=== PATIENT | male | born 1945 | race Caucasian/White ===

== ENCOUNTER 2018-02-21 12:47 | Emergency (ER) | payer MEDICARE, SELFPAY ==
[2018-02-21 12:48] VITALS: BP 162/112; PULSE 111; RESP 20; TEMP 36.5; O2SAT 95; BMI 36.3
--- NOTE | 2018-02-21 13:02 | RAD_ITS ---
STUDY: X-RAY CHEST REASON FOR EXAM: Male, 72 years old. Chest pain. TECHNIQUE: Single portable frontal chest. COMPARISON: None. FINDINGS: There is a large region of alveolar opacification within the left lung base completely obscuring the left hemidiaphragm and blunting the left lateral costophrenic angle. There is no pneumothorax. The patient is status post CABG with widening of the superior mediastinum. There is early vascular congestion. There is mild cardiac enlargement. There is atherosclerotic calcification of the aortic arch with tortuosity. There is no acute osseous abnormality. There is no demonstrated abnormality of the visualized soft tissue structures of the upper abdomen. RAD/Chest 1 View (Portable) IMPRESSION: Left lower lobe consolidation potentially representing pneumonia and/or atelectasis. There is probably also a small left basilar pleural effusion. Recommend radiographic follow-up until complete clearing to exclude underlying/obscured pathology. Mild cardiac enlargement. Status post CABG. No pneumothorax. Widening of the superior mediastinum which may simply represent an additional manifestation of prior CABG. Electronically Signed: Brent Concepcion MD at 13:31 EDT , Service support ,
--- NOTE | 2018-02-21 13:02 | EKG12_ITS ---
Test Reason : CP Blood Pressure : / mmHG Vent. Rate : 107 BPM Atrial Rate : 111 BPM P-R Int : 000 ms QRS Dur : 096 ms QT Int : 332 ms P-R-T Axes : 000 -23 074 degrees QTc Int : 443 ms Atrial fibrillation Inferior infarct , age undetermined Abnormal ECG Confirmed by CARMEN LOMELI ([id number]), editor farm journal YOUSUF LEBLANC ([id number]) on 02/26/2018 2:46:49 PM Referred By: CR Confirmed By:CARMEN LOMELI
[2018-02-21 13:12] VITALS: O2SAT 95
[2018-02-21] MEDS: Aspirin 81 MG TAB.CHEW 324 MG PO (13:18)
[2018-02-21] MEDS: Metoprolol Tartrate 5 MG/5 ML Vial IV (13:18)
[2018-02-21 13:27] LABS: Absolute Neutrophil Count 10.4 X10^3/uL (2.0-7.7); Basophil# 0.03 X10^3/uL; Basophil% 0.2 % (0-1); Eosinophil# 0.07 X10^3/uL; Eosinophils% 0.5 % (0-5); Hematocrit 41.1 % (40-54); Hemoglobin 12.6 g/dl (13.0-16.5); Lymphocyte % 7.6 % (19-41); Mean Corp Hgb Conc 30.7 g/gl (32-36); Mean Corpuscular Hgb 27.7 pg (27.0-32.0); Mean Corpuscular Volume 90.3 fL (80-94); Mean Platelet Vol. 9.3 fl (6.2-12.0); Monocyte# 1.62 X10^3/uL; Monocyte% 12.3 % (0-10); Neutrophil # 10.42 X10^3/uL (2.7-7.7); Platelet Count 430 K/mm3 (150-450); RBC Distribution Width CV 16.6 % (11.6-14.6); RBC Distribution Width SD 54.9 fl (35.1-43.9); Red Blood Count 4.55 M/mm3 (4.6-6.2); White Blood Count 13.2 K/mm3 (4.4-11.0)
[2018-02-21 13:28] LABS: Differential Indicated SCAN CRITERIA MET; POSITIVE COUNT NO; POSITIVE DIFFERENTIAL YES; POSITIVE MORPHOLOGY NO
[2018-02-21 13:33] LABS: International Normalized Ratio 2.8
[2018-02-21 13:44] LABS: Anion Gap 9 (5-15); BUN 18 mg/dL (7-18); BUN/Creat Ratio 12.7 RATIO (10-20); Calcium,Total 9.4 mg/dL (8.5-10.1); Chloride 100 mmol/L (98-107); Creatinine, Serum 1.42 mg/dL (0.70-1.30); EST Glomerular Filtration Rate 52 mL/min (>60); Est Glom Filt Rate - Afr Amer 63 mL/min (>60); Estimated Creatinine Clearance 51.56 ml/min; Glucose 176 mg/dL (74-106); Potassium 4.1 mmol/L (3.5-5.1); Sodium Level 134 mmol/L (136-145)
[2018-02-21 13:51] VITALS: BP 121/88; PULSE 95; RESP 23; O2SAT 94
--- NOTE | 2018-02-21 13:56 | ED.DCSUM_ITS ---
- ER Visit Summary Date of Service: 02/21/18 Chief Complaint: Chest pain History of Present Illness: The patient is a [address] Braga, but gets his cardiac care through the [facility]. He had a one-vessel CABG November 062017 with aortic valve replacement at the [facility]. He reports he has had intermittent chest pain for the past 2 weeks. This lasts minutes at a time. It is not related to exertion. He reports she has had constant pain for the past 6 hours now. States his pain is 7 out of 10 at worst and 410 currently. Is worsened by nothing including exertion, movement, or breathing. He denies any associated nausea, vomiting, diaphoresis, or shortness of breath. Physical Examination: Vitals: Stable. Afebrile. General: Well-nourished and well-developed. Head: Normocephalic atraumatic. Neck: Supple, no lymphadenopathy. No JVD. Nontender. Cardiovascular: Irregular rhythm with a 2 out of 6 systolic murmur. Respiratory: No respiratory distress. Clear to auscultation bilaterally. Sternotomy scar is healed well. There is no erythema or warmth to suggest infection. There is no click. Chest is nontender. Abdominal: Soft, nontender, nondistended, normal bowel sounds. No guarding, rebound, or peritoneal signs. Back: Nontender. Extremities: Nontender, no edema. Skin: Normal color, no rash. Neurologic: Alert and oriented ?3. Cranial nerves II through XII are intact. Normal strength and sensation. Psych: Normal affect. Test Results: His A. fib at 107. Troponin is negative. INR is 2.8. Chem-7 is more for sodium 134, creatinine 1.42, glucose 176. CBC is marked for white count 13.2 with a hemoglobin of 12.6. 79 segmented neutrophils and 8 lymphocytes. Chest x-ray is read by the radiologist of the left lower lobe consolidation pneumonia and or atelectasis. Small left basilar pleural effusion. Mild cardiomegaly. Emergency Department Course and Treatment: Had a prolonged discussion with patient about the x-ray. He reports that he has a little bit of cough. I do not think that this is pneumonia. He agrees that he does not feel as though he has pneumonia and does not want to be placed on antibiotic. I also discussed them with 6 hours of constant pain that I do not think that this is cardiac in etiology. I also do not think it is a PE as has he has a therapeutic INR. Treatment Plan: Patient would like to go home. I feel it is reasonable course of action. He will be discharged instructions to follow-up Dr. Braga in 1-2 days for another exam. 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 Return to the emergency department for any worsening symptoms. Disposition: To home in improved and stable condition. Impression: 1. Atypical chest pain. 2. Coumadin coagulopathy. 3. Status post 1 vessel CABG 11/06/2017. This note was generated with [employer] dictation software. It may contain incorrect words, spelling, and punctuation that were not noted in review of the chart prior to signing ED Disposition - Plan for ED Patient: Disposition: Home or Assisted Living Chief Complaint: Chest Pain Instructions: ED Chest Pain Atypical Unkn Cause Referrals: Billy Braga DO [Primary Care Provider] - 1-2 Days if not improving
[2018-02-21 14:03] VITALS: BP 121/88; PULSE 87; RESP 17; O2SAT 94
== END 2018-02-21 14:16 | disposition home or self-care (01) ==
PROVIDERS: Emergency Provider Emergency Medicine; Family Provider Family Medicine; PCP Family Medicine
DX: R07.89 Other chest pain (principal); R79.1 Abnormal coagulation profile; J90 Pleural effusion, not elsewhere classified; I25.10 Atherosclerotic heart disease of native coronary artery without angina pectoris; I48.91 Unspecified atrial fibrillation; E11.9 Type 2 diabetes mellitus without complications; I10 Essential (primary) hypertension; Z95.2 Presence of prosthetic heart valve; Z95.1 Presence of aortocoronary bypass graft
CPT/HCPCS: 71045; 80048; 84484; 85025; 85610; 93005; 96374; 99284; A4216

== ENCOUNTER → 2018-03-26 10:26 | Outpatient (CLI) | payer OTHER, MEDICARE, SELFPAY ==
--- NOTE | 2018-03-26 10:30 | PCM.CR.HP2 ---
CR - History & Physical - General Arrival date:: 03/26/18 Arrival time:: 10:31 Date of Referral:: 03/04/18 Date of CR Evaluation:: 03/26/18 Referring Physician: [facility] Primary Diagnosis: CABG single vessel, AVR 11/06/2017 - History of Present Cardiac Event Onset Date: Enter Onset Date of cardiac illnesses in Comment field below Coronary Artery Bypass Graft:: Yes - single vessel 11/06/2017 Heart valve replacement or repair:: Yes - 11/06/2017 Type of Symptoms:: found heart murmer and went to [facility] and sent to pot reliner at [facility] and then all the excitement started. Ended up with singel vessel bypass and aortic valve replacement at [facility]. Were there any complications?: Atrial Fibrillation; just had cardioversion done last week. - Medications Home Medications: Ambulatory Orders Medication Instructions Recorded Aspirin [Aspir-Low] 81 mg PO DAILY 02/21/18 Docusate Sodium [Colace] 100 mg PO BID PRN 02/21/18 Levothyroxine Sodium [Synthroid] 25 mcg PO DAILY 02/21/18 Metformin HCl [Glucophage] 500 mg PO BIDCM 02/21/18 Metoprolol Tartrate [Lopressor 25 mg PO BID 02/21/18 (Beta Wojciech)] Simvastatin [Zocor] 20 mg PO QHS 02/21/18 Warfarin [Coumadin (PBKC)] 2.5 mg PO SUTUTHSA 02/21/18 Warfarin [Coumadin (PBKC)] 5 mg PO MOWEFR 02/21/18 Cholecalciferol (Vitamin D3) 2,000 unit PO 03/26/18 [Vitamin D3] Levothyroxine [Synthroid] 25 mcg PO DAILY 03/26/18 - Allergies Allergies/Adverse Reactions: Allergies Penicillins Allergy (Verified 02/21/18 12:52) Other - Sleep Disorder Evaluation Hx of Sleep Apnea: No Do you snore loudly (louder than talking or can be heard through closed doors)?: No Do you often feel tired/ fatigued/ sleepy during daytime?: No Has anyone observed you stop breathing during sleep?: No History of Hypertension (for STOP score): Yes STOP Results: Negative Advanced Directives - Advanced Directives Power of Service Representative: Yes - is POA Living Will: Yes Advance Directives Information Provided: No Advance Directives on File: No - Don't think so. 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 - Past Surgical History Surgical History: Past Surgical History (Last Updated 03/26/18 @ 10:43 by Mendoza Shaffer CRT, KAYCE, RE) History of tonsillectomy and adenoidectomy Z98.890 S/P AVR (aortic valve replacement) Z95.2 S/P CABG x 1 Z95.1 Surgical History: coronary bypass surgery - Family History Summary Family History: Family History (Last Updated 03/26/18 @ 10:44 by Mendoza Shaffer CRT, RCP, RE) Mother Cancer Father Heart failure Social History - Smoking History Smoking Status: Never smoker Hx Tobacco Use: No Hx Smoking Exposure: No - Alcohol Use Alcohol Usage: No - Substance Abuse Hx Substance Use: No - Occupation Occupation (List type of work in comments):: Retired - Hobbies, Recreation, Social Activities Hobbies: Other - yard work Recreational Activities: I am able to engage in all my recreational activities Social Environment - Status Marital Status: - Current Living Arrangements Living Environment:: Spouse - Children How many children do you have?: 2 Do any of your children live nearby?: Yes - Safety Do you feel safe in your surroundings?: Yes - Assistance Do you need any assistance at home?: yes Review of Systems - Review of Systems Hints: Right click = Denies (Slash). Left click = Reports ([place]) Review of Present Symptoms: Reports: Shortness of Breath with Exertion, Operative Discomfort - tenderness down the incisional area, Wound Healing, Fatigue - get tired, Appetite - Normal, Sleep - Normal. Denies: Shortness of Breath at Rest, Dizziness/Lightheadedness, Appetite - Special Diet - Pain Is Patient Pain Free?: No Pain Location: chest Pain Level: /10 Risk Factor Assessment - Chief Complaint Chief Complaint: Patient presents to cardiac rehab today under the referral from the [facility] to participate in cardiac rehab following his recent AVR and CABG surgery at [facility]. - Vital Signs Temperature: 98.7 F Respiratory Rate: 16 Pulse Ox: 93 Blood Pressure: 114/58 - Pulse Pulse Rate: 63 Pulse Rhythm: Regular - Hypertension Blood Pressure Sitting - Left Arm: 114/58 - Diabetes Diabetic History: Type II, Medication Dependent - Obesity Height: 5 ft 11 in Weight:: 260 lb Weight in Pounds: 260.0 lbs Weight Source: Estimated by Patient Body Mass Index (BMI): 36.2 Nutritional Referral for Obesity: Yes - Physical Inactivity Physical Inactivity: Reg Exercise 30 min/day - Risk Stratification Risk Guidelines: Lowest Risk: Risk Factor for Smoking, Risk Factor for Dyslipidemia, Risk Factor for Diabetes, Risk Factor for Hypertension, Highest Risk: Risk Factor for Obesity - For Smoking Smoking Risk Guidelines: Smoking Low Risk: None or quit greater than 6 months ago. Smoking Moderate Risk: Smoker or quit 6 months or less ago. Smoking High Risk: Smoker - For Dyslipidemia Dyslipidemia Risk Guidelines: Low Risk: Moderate Risk: High Risk: 15-25% fat 25.1-29% fat >/= 30% fat. <7% sat fat 7-9% sat fat >9% sat fat. <150 mg chol 150-299 mg chol >/= 300 mg chol. LDL <100 LDL 100-129 LDL >/= 130. Chol/HDL ratio <5.0 Chol/HDL ratio 5.0-6.0 Chol/HDL ratio >6.0. Triglycerides <100 Triglycerides 100-149 Triglycerides >/= 150 - For Diabetes Mellitus Diabetes Risk Guidelines: Diabetes Low Risk: HgA1c <6.5% and/or FBG <120. Diabetes Moderate Risk: HgA1c 6.6-7.9% and/or FBG 120-180. Diabetes High Risk: HgA1c >/= 8% and/or FBG >180 - For Obesity/Overweight Obesity/Overweight Risk Guidelines: Obesity Low Risk: BMI <25.0. Obesity Moderate Risk: BMI 25-29.9. Obesity High Risk: BMI >/= 30.0 - For Hypertension Hypertension Risk Guidelines: Hypertension Low Risk: Systolic <120 and Diastolic <80. Hypertension Moderate Risk: Systolic 120-139 and Diastolic 80-89. Hypertension High Risk: Systolic >/= 140 and Diastolic >/= 90 - For Sedentary Lifestyle Sedentary Lifestyle Risk Guidelines: Sedentary Lifestyle Low Risk: >/= 1,500 kcal/week. Sedentary Lifestyle Moderate Risk: 700-1,499 kcal/week. Sedentary Lifestyle High Risk: < 700 kcal/week - For Depression Depression Risk Guidelines: Depression Low Risk: Not clinically depressed. Depression Moderate Risk: Mildly depressed. Depression High Risk: Clinically depressed - Family History Family History: Family History (Last Updated 03/26/18 @ 10:44 by Mendoza Shaffer, LARD MIXER, ENTRY LEVEL FINANCIAL ANALYST, BS) Mother Cancer Father Heart failure Motivation - Motivation to Participate On a scale of 1 to 10, how prepared are you to commit to attending program?: 10 What do you see as barriers to successfully being able to complete the program?: none What do you see as the benefits of succesfully completing the program? In other words, what do you hope to get out of participating in the program?: a lot healthier; more energy Are there issues you are dealing with that will interfere with completing the program?: none Do you have a spouse or signficant other, family or friends who will help support you to complete the program?: good family support system.
--- NOTE | 2018-03-26 10:41 | CR.HP_ITS ---
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 Ended up [place] singel vessel bypass [place] [facility] Were there any complications?: Atrial Fibrillation; just had cardioversion done last week. - Medications Home Medications: Ambulatory Orders Medication Instructions Recorded Aspirin [Aspir-Low] 81 mg PO DAILY 02/21/18 Docusate Sodium [Colace] 100 mg PO BID PRN 02/21/18 Levothyroxine Sodium [Synthroid] 25 mcg PO DAILY 02/21/18 Metformin HCl [Glucophage] 500 mg PO BIDCM 02/21/18 Metoprolol Tartrate [Lopressor 25 mg PO BID 02/21/18 (Beta Wojciech)] Simvastatin [Zocor] 20 mg PO QHS 02/21/18 Warfarin [Coumadin (PBKC)] 2.5 mg PO SUTUTHSA 02/21/18 Warfarin [Coumadin (PBKC)] 5 mg PO MOWEFR 02/21/18 Cholecalciferol (Vitamin D3) 2,000 unit PO 03/26/18 [Vitamin D3] Levothyroxine [Synthroid] 25 mcg PO DAILY 03/26/18 - Allergies Allergies/Adverse Reactions: Allergies Penicillins Allergy (Verified 02/21/18 12:52) Other - Sleep Disorder Evaluation Hx of Sleep Apnea: No Do you snore loudly (louder than talking or can be heard through closed doors)? : No Do you often feel tired/ fatigued/ sleepy during daytime?: No Has anyone observed you stop breathing during sleep?: No History of Hypertension (for STOP score): Yes STOP Results: Negative Advanced Directives - Advanced Directives Power of Photo Colorer: Yes - is POA Living Will: Yes Advance Directives Information Provided: No Advance Directives on File: No - Don't think so. 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 - Past Surgical History Surgical History: Past Surgical History (Last Updated 03/26/18 @ 10:43 by Mendoza Shaffer CRT, KAYCE, RE) History of tonsillectomy and adenoidectomy Z98.890 S/P AVR (aortic valve replacement) Z95.2 S/P CABG x 1 Z95.1 Surgical History: coronary bypass surgery - Family History Summary Family History: Family History (Last Updated 03/26/18 @ 10:44 by Mendoza Shaffer CRT, RCP, RE) Mother Cancer Father Heart failure Social History - Smoking History Smoking Status: Never smoker Hx Tobacco Use: No Hx Smoking Exposure: No - Alcohol Use Alcohol Usage: No - Substance Abuse Hx Substance Use: No - Occupation Occupation (List type of work in comments):: Retired - Hobbies, Recreation, Social Activities Hobbies: Other - yard work Recreational Activities: I am able to engage in all my recreational activities Social Environment - Status Marital Status: - Current Living Arrangements Living Environment:: Spouse - Children How many children do you have?: 2 Do any of your children live nearby?: Yes - Safety Do you feel safe in your surroundings?: Yes - Assistance Do you need any assistance at home?: yes Review of Systems - Review of Systems Hints: Right click = Denies (Slash). Left click = Reports ([place]) Review of Present Symptoms: Reports: Shortness of Breath with Exertion, Operative Discomfort - tenderness down the incisional area, Wound Healing, Fatigue - get tired, Appetite - Normal, Sleep - Normal. Denies: Shortness of Breath at Rest, Dizziness/Lightheadedness, Appetite - Special Diet - Pain Is Patient Pain Free?: No Pain Location: chest Pain Level: /10 Risk Factor Assessment - Chief Complaint Chief Complaint: Patient presents to cardiac rehab today under the referral from the [facility] to participate in cardiac rehab following his recent AVR and CABG surgery at [facility]. - Vital Signs Temperature: 98.7 F Respiratory Rate: 16 Pulse Ox: 93 Blood Pressure: 114/58 - Pulse Pulse Rate: 63 Pulse Rhythm: Regular - Hypertension Blood Pressure Sitting - Left Arm: 114/58 - Diabetes Diabetic History: Type II, Medication Dependent - Obesity Height: 5 ft 11 in Weight:: 260 lb Weight in Pounds: 260.0 lbs Weight Source: Estimated by Patient Body Mass Index (BMI): 36.2 Nutritional Referral for Obesity: Yes - Physical Inactivity Physical Inactivity: Reg Exercise 30 min/day - Risk Stratification Risk Guidelines: Lowest Risk: Risk Factor for Smoking, Risk Factor for Dyslipidemia, Risk Factor for Diabetes, Risk Factor for Hypertension, Highest Risk: Risk Factor for Obesity - For Smoking Smoking Risk Guidelines: Smoking Low Risk: None or quit greater than 6 months ago. Smoking Moderate Risk: Smoker or quit 6 months or less ago. Smoking High Risk: Smoker - For Dyslipidemia Dyslipidemia Risk Guidelines: Low Risk: Moderate Risk: High Risk: 15-25% fat 25.1-29% fat >/= 30% fat. <7% sat fat 7-9% sat fat >9% sat fat. <150 mg chol 150-299 mg chol >/= 300 mg chol. LDL <100 LDL 100-129 LDL >/= 130. Chol/HDL ratio <5.0 Chol/HDL ratio 5.0-6.0 Chol/HDL ratio >6.0. Triglycerides <100 Triglycerides 100-149 Triglycerides >/= 150 - For Diabetes Mellitus Diabetes Risk Guidelines: Diabetes Low Risk: HgA1c <6.5% and/or FBG <120. Diabetes Moderate Risk: HgA1c 6.6-7.9% and/or FBG 120-180. Diabetes High Risk: HgA1c >/= 8% and/or FBG >180 - For Obesity/Overweight Obesity/Overweight Risk Guidelines: Obesity Low Risk: BMI <25.0. Obesity Moderate Risk: BMI 25-29.9. Obesity High Risk: BMI >/= 30.0 - For Hypertension Hypertension Risk Guidelines: Hypertension Low Risk: Systolic <120 and Diastolic <80. Hypertension Moderate Risk: Systolic 120-139 and Diastolic 80-89. Hypertension High Risk: Systolic >/= 140 and Diastolic >/= 90 - For Sedentary Lifestyle Sedentary Lifestyle Risk Guidelines: Sedentary Lifestyle Low Risk: >/= 1 ,500 kcal/week. Sedentary Lifestyle Moderate Risk: 700-1,499 kcal/week. Sedentary Lifestyle High Risk: < 700 kcal/week - For Depression Depression Risk Guidelines: Depression Low Risk: Not clinically depressed. Depression Moderate Risk: Mildly depressed. Depression High Risk: Clinically depressed - Family History Family History: Family History (Last Updated 03/26/18 @ 10:44 by Mendoza Shaffer, HUMAN RESOURCES TALENT MANAGER, LINER ROLL CHANGER, BS) Mother Cancer Father Heart failure Motivation - Motivation to Participate On a scale of 1 to 10, how prepared are you to commit to attending program?: 10 What do you see as barriers to successfully being able to complete the program? : none What do you see as the benefits of succesfully completing the program? In other words, what do you hope to get out of participating in the program?: a lot healthier; more energy Are there issues you are dealing with that will interfere with completing the program?: none Do you have a spouse or signficant other, family or friends who will help support you to complete the program?: good family support system.
--- NOTE | 2018-03-26 10:50 | CR.ITP_ITS ---
General Information - General Information Admitting Diagnosis: CABG and AVR October 2017. - Education/Goals Barriers to Learning: Hearing Impairment, Vision Impairment Individual Counseling: Initial Assessment: Abnormal Cholesterol Levels, High Blood Pressure, Overweight/Obesity, Diabetes, Metabolic Syndrome (as evidenced by 3 of 5 A-E below), B. Waist Circumference >35/Females >40/Males, C. High Triglycerides >150, Hypertension, Sedentary Lifestyle, Family History of Heart Disease (under 65 years) Cardiac Rehabilitation Goals: 1. Maintain the individual as the primary focus of care. 2. To improve the patient's quality of life. 3. Identification of cardiac risk factors and provide cardiac risk factor management. 4. Enhance the psychosocial status of the patient. 5. Reconditioning enough to allow the patient to resume customary activities. 6. Control symptoms of cardiac disease Scale for measuring improvement of personal goals: Enter appropriate number in Comments. 2 = Unchanged. 3 = Slightly Better. 4 = Moderate Improvement. 5 = Met my Goal Personal Goals: Initial Assessment: Improve energy level, Improve knowledge of cardiac disease, Improve muscle strength and endurance, Improve diet and eating habits (eat healthier), Control risk factors (learn risk factor modification) Exercise - Initial Assessment - Visit Date of Eval: 03/26/18 Session #:: 0 - Established initial ITP start on - Stages of Change Stages of Change:: Action - Exercise Prescription Mode:: Treadmill, Airdyne, NuStep Angina with exercise?: No Target Heart Rate:: 112-120 - Hypertension Do any of the following apply?: Yes, Medication Resting Blood Pressure:: 118/64 - Intervention Home Exercise/Activity Goal:: Sitting Time <3 hrs/day - Education Goals:: Warm-up, RPE HAYDEN Scale, S/S, Safe Exercise, Self-Monitoring - Exercise Program Goals Exercise Program Goals: Aerobic Activity >30 min Nutrition - Initial Assessment - Program Goals Nutrition Program Goals: LDL <70. Total Cholesterol <200. HDL >45. Triglycerides <150. HgbA1C <7%. BMI <25 - Visit Date of Assessment:: 03/26/18 - Stages of Change Stages of Change:: Action - Diabetes Diabetes:: Yes Non-Insulin Dependent?: Yes - Metformin 500mg BID - Weight Management Height: 5 ft 11 in Weight:: 260 lb Body Fat %:: 36.8 - Intervention Referral to dietitian:: No - Patient declined participation Referral to Diabetic Clinic:: No - Patient declined participation Will attend diet classes:: Yes - Education Gave educational materials for:: Signs & symptoms of hypoglycemia, Signs & symptoms of hyperglycemia, Relate diabetes to coronary artery disease, Healthy eating Tobacco - Initial Assessment - Program Goals Tobacco Program Goals: Complete smoking cessation. Attend education classes. Improve Knowledge Test score - Stage of Change Stages of Change:: Action - Learning Barriers Learning Barriers: Hearing, Vision, Ready to Learn - Family Support Do you have family support?: Yes - Tobacco Use Tobacco Use: Non-smoker Do you use smokeless tobacco?: No - Intervention Smoking Cessation Referral:: No Individual Education/Counseling:: No Education Schedule Given:: Yes - Education Gave educational material for:: Coronary artery disease, Risk factors, Sexuality , Medical compliance, Cardiac A&P, Angina signs & symptoms Psychosocial - Initial Assess - Target Goals Target Goals: Assess presence or absence of depression. Using a valid screening tool, maximizes coping skills. Positive support system - Stages of Change Stages of Change:: Action - Psychosocial Test Tool Used:: HANDS Depression Questionnaire - Intervention PS - Interventions: Yes Attend Stress Management Classes, Yes Uses Stress Management Skills, No Referral to Mental Health, No Referral to [facility] Case Management, No Referral to Physician - Education Gave educational materials for:: Coping techniques, Signs & symptoms of depression, Stress management, Relaxation techniques - Patient/Program Goal Preventative Medication(s):: Aspirin, Clopidogrel, Beta lawrence, Statin/lipid - Assistive Devices Assistive Devices:: None Fall Risk Assessed:: Yes Patient Health Questionnaire Initial Assessment 1. Little interest or pleasure in doing things: Not at all 2. Feeling down, depressed, or hopeless: Not at all 3. Trouble falling or staying asleep, or sleeping too much: Not at all 4. Feeling tired or having little energy: More than half the days 5. Poor appetite or overeating: Not at all 6. Feeling bad about yourself -- or that you are a failure or have let yourself or your family down: Not at all 7. Trouble concentrating on things, such as reading the newspaper or watching television: Not at all 8. Moving or speaking so slowly that other people could have noticed. Or the opposite - being so fidgety or restless that you have been moving around a lot more than usual: Not at all 9. Thoughts that you would be better off , or of hurting yourself in some way: Not at all How difficult have these problems made it for you to do your work, take care of things at home, or get along with other people?: Not difficult at all Total Score: 2 GAYATRI-Q SV Test - Statements CAD is a disease of the arteries in the heart: False Examples of risk factors for heart disease: True Angina is chest pain or discomfort: True The benefits of resistance training include: I Don't Know Eating more meat and dairy products: I Don't Know Anti-platelet medications such as aspirin are important: True The only effective way to manage stress: False An exercise warm-up slowly increases heart rate: False Prepared, processed foods usually have high sodium: True Depression is common after a heart attack: False The statin medications lower cholesterol: I Don't Know To control blood pressure, lower the amount of sodium: True If someone gets chest discomfort during walking: False Transfats are partially hydrogenated vegetable oils: True Sleep apnea that is not treated increases the risk: I Don't Know To control cholesterol, one should become a vegetarian: False Someone knows if he/she is exercising at the right level: False Diabetes cannot be prevented with exercise & health eating: True Stress is a large risk for heart attack: True A diet that can help lower blood pressure is rich in: I Don't Know - Total Score Total Correct Responses: 11 Self-Efficacy Initial Assessment We would like to know how confident you are in doing certain activities. Please select your confidence level for:: Select your confidence level for the following using the scale 1-10 where 1 is not at all confident and 10 is totally confident. Your score is the average of all 6 responses. Fatigue: How confident are you that you can keep the fatigue caused by your disease from interfering with the things you want to do? Select Number: 9 Physical Discomfort or Pain: How confident are you that you can keep the physical discomfort or pain of your disease from interfering with the things you want to do? Select Number: 9 Emotional Distress: How confident are you that you can keep the emotional distress caused by your disease from interfering with the things you want to do? Select Number: 10 Other Symptoms or Health Problems: How confident are you that you can keep other symptoms or health problems from interfering with the things you want to do? Select Number: 10 Different Tasks and Activities: How confident are you that you can do the different tasks and activities needed to manage your health condition so as to reduce your need to see a doctor? Select Number: 10 Medication: How confident are you that you can do things other than just taking medication to reduce how much your illness affects your everyday life? Select Number: 10 Total Score:: 9 Nutrition Survey - Nutrition Survey Instructions Scoring Instructions: Scoring is as follows: Yes = 1 points. No = 0 point. Patient score that is >/=12 is considered to be at potential nutritional risk and could benefit from a referral to a registered dietitian. - Nutrition Survey Initial Have you lost >10 lbs over the past 2 months without trying?: No Are you following a special diet at home for diabetes, low fat, or low salt?: No Are you interested in meeting with a dietitian for help understanding your diet? : No Do you eat less than 3 meals a day?: Yes Do you eat fatty meats (jc, sausage, ribs, etc), fried foods, desserts, large amounts of salad dressings, margarine, butter, or cheese most days?: No Do you have food allergies? [Enter types in comment field]: No Do you eat in restaurants more than 3 times a week?: No Do you season food with salt, seasoning salt, or garlic salt?: Yes Do you used canned, boxed, frozen meals, or soups, seasoning packets?: No Total Score:: 2
[2018-03-26 10:54] VITALS: BP 114/58; PULSE 63; RESP 16; TEMP 37.1; O2SAT 93; BMI 36.2
[2018-03-26 11:41] VITALS: BP 118/64
== END ==
PROVIDERS: Family Provider Family Medicine; PCP Family Medicine
DX: I25.10 Atherosclerotic heart disease of native coronary artery without angina pectoris (principal); I35.0 Nonrheumatic aortic (valve) stenosis; I10 Essential (primary) hypertension; Z95.1 Presence of aortocoronary bypass graft; Z95.2 Presence of prosthetic heart valve

== ENCOUNTER 2018-04-26 09:15 | Outpatient (RCR) | payer OTHER, MEDICARE, SELFPAY ==
[2018-04-19 14:38] VITALS: BP 130/70; BP 148/82
--- NOTE | 2018-04-19 14:39 | CR.ITP_ITS ---
General Information - General Information Admitting Diagnosis: CABG and AVR - Education/Goals Barriers to Learning: Hearing Impairment, Vision Impairment Individual Counselin-Day Assessment: Abnormal Cholesterol Levels, High Blood Pressure, Overweight/Obesity, Diabetes, Metabolic Syndrome (as evidenced by 3 of 5 A-E below), Hypertension, Sedentary Lifestyle, Family History of Heart Disease (under 65 years) Cardiac Rehabilitation Goals: 1. Maintain the individual as the primary focus of care. 2. To improve the patient's quality of life. 3. Identification of cardiac risk factors and provide cardiac risk factor management. 4. Enhance the psychosocial status of the patient. 5. Reconditioning enough to allow the patient to resume customary activities. 6. Control symptoms of cardiac disease Scale for measuring improvement of personal goals: Enter appropriate number in Comments. 2 = Unchanged. 3 = Slightly Better. 4 = Moderate Improvement. 5 = Met my Goal Personal Goals: 30-day Re-assessment: Improve energy level, Improve knowledge of cardiac disease, Improve diet and eating habits (eat healthier), Control risk factors (learn risk factor modification) Exercise - 30-day Assessment - Visit Date of Eval: 04/19/18 Session #:: 6 - 100% compliance - Stages of Change Stages of Change:: Action - Exercise Prescription Mode:: Treadmill, Airdyne, NuStep Frequency (x/week): 3 Duration:: 30 METs - Progression: 0.5-1 MET as tolerated: 3.1 24% increase Target Heart Rate:: 112-120 103 max - Hypertension Resting Blood Pressure:: 130/70 Peak Exercise Blood Pressure:: 148/82 Medication Changes:: No - Education Goals:: Warm-up, RPE HAYDEN Scale, S/S, Safe Exercise, Self-Monitoring - Exercise Program Goals Exercise Program Goals: Aerobic Activity >30 min, B/P <130/80 Nutrition - 30-Day Assessment - Program Goals Nutrition Program Goals: LDL <70. Total Cholesterol <200. HDL >45. Triglycerides <150. HgbA1C <7%. BMI <25 - Visit Date of Eval: 04/19/18 - Stages of Change Stages of Change:: Action - Diabetes Diabetes:: Yes - Weight Management Weight:: 112.491 kg - Intervention Will attend diet classes:: Yes - Education Attended class for:: Signs & symptoms of hypoglycemia, Signs & symptoms of hyperglycemia, Relate diabetes to coronary artery disease, Healthy eating Tobacco - Initial Assessment - Program Goals Tobacco Program Goals: Complete smoking cessation. Attend education classes. Improve Knowledge Test score - Learning Barriers Learning Barriers: Hearing, Vision, Ready to Learn Tobacco - 30-Day Assessment - Program Goals Tobacco Program Goals: Complete smoking cessation. Attend education classes. Improve Knowledge Test score - Stage of Change Stages of Change:: Action - Learning Barriers Learning Barriers: Participates in education - Family Support Do you have family support?: Yes - Tobacco Use Tobacco Use: Non-smoker - Intervention Smoking Cessation Referral:: No Individual Education/Counseling:: No Education Schedule Given:: Yes - Education Attended class for:: Tobacco triggers, Coronary artery disease, Risk factors, Sexuality, Medical compliance, Cardiac A&P, Angina signs & symptoms Psychosocial - Initial Assess - Target Goals Target Goals: Assess presence or absence of depression. Using a valid screening tool, maximizes coping skills. Positive support system - Psychosocial Test Tool Used:: HANDS Depression Questionnaire - Assistive Devices Fall Risk Assessed:: Yes Psychosocial - 30-Day Assess - Target Goals Target Goals: Assess presence or absence of depression. Using a valid screening tool, maximizes coping skills. Positive support system - Stages of Change Stages of Change:: Action - Psychosocial Test Tool Used:: HANDS Depression Questionnaire - Intervention PS - Interventions: Yes Attend Stress Management Classes, Yes Uses Stress Management Skills, No Referral to Mental Health, No Referral to [facility] Case Management, No Referral to Physician - Education Attended classes for:: Coping techniques, Signs & symptoms of depression, Stress management, Relaxation techniques - Assistive Devices Assistive Devices:: None Fall Risk Assessed:: Yes Patient Health Questionnaire 30-Day Re-eval Assessment 1. Little interest or pleasure in doing things: Not at all 2. Feeling down, depressed, or hopeless: Not at all 3. Trouble falling or staying asleep, or sleeping too much: Not at all 4. Feeling tired or having little energy: More than half the days 5. Poor appetite or overeating: Not at all 6. Feeling bad about yourself -- or that you are a failure or have let yourself or your family down: Not at all 7. Trouble concentrating on things, such as reading the newspaper or watching television: Not at all 8. Moving or speaking so slowly that other people could have noticed. Or the opposite - being so fidgety or restless that you have been moving around a lot more than usual: Not at all 9. Thoughts that you would be better off , or of hurting yourself in some way: Not at all How difficult have these problems made it for you to do your work, take care of things at home, or get along with other people?: Not difficult at all Total Score: 2 Self-Efficacy 30-Day Re-eval Assessment We would like to know how confident you are in doing certain activities. Please select your confidence level for:: Select your confidence level for the following using the scale 1-10 where 1 is not at all confident and 10 is totally confident. Your score is the average of all 6 responses. Fatigue: How confident are you that you can keep the fatigue caused by your disease from interfering with the things you want to do? Select Number: 9 Physical Discomfort or Pain: How confident are you that you can keep the physical discomfort or pain of your disease from interfering with the things you want to do? Select Number: 9 Emotional Distress: How confident are you that you can keep the emotional distress caused by your disease from interfering with the things you want to do? Select Number: 10 Other Symptoms or Health Problems: How confident are you that you can keep other symptoms or health problems from interfering with the things you want to do? Select Number: 10 Different Tasks and Activities: How confident are you that you can do the different tasks and activities needed to manage your health condition so as to reduce your need to see a doctor? Select Number: 10 Medication: How confident are you that you can do things other than just taking medication to reduce how much your illness affects your everyday life? Select Number: 10 Total Score:: 9
== END 2018-04-27 23:59 ==
LOC: CR 09:15
PROVIDERS: Family Provider Family Medicine; PCP Family Medicine
DX: I35.1 Nonrheumatic aortic (valve) insufficiency (principal)
CPT/HCPCS: 93798

== ENCOUNTER 2018-05-20 09:15 | Outpatient (RCR) | payer OTHER, MEDICARE, SELFPAY ==
[2018-04-28 00:14] VITALS: BP 130/70; BP 148/82
--- NOTE | 2018-05-21 12:57 | PCM.CR.ITP ---
Exercise - Final/Discharge - Visit Date of Eval: 05/21/18 - patient completed CR 05/20/18 Session #:: 18 - Stages of Change Stages of Change:: Action - Exercise Prescription Mode:: Treadmill, Rower, Airdyne, NuStep Frequency (x/week): 3 Duration:: 30 METs: 5 patient reached maximum potential. Target Heart Rate:: 112-120 Max HR 111 - Hypertension Resting Blood Pressure:: 180/90 - requires further evaluation of optimal BP control of 130/80 Peak Exercise Blood Pressure:: 180/90 - Intervention Home Exercise/Activity Goal:: Moderate Exercise 30 min/day x 5 days/wk - Education Goal Progress: Goal Met - Exercise Program Goals Exercise Program Goals: Aerobic Activity >30 min Nutrition - Final Assessment - Program Goals Nutrition Program Goals: LDL <70. Total Cholesterol <200. HDL >45. Triglycerides <150. HgbA1C <7%. BMI <25 - Visit Date of Eval: 05/21/18 - Stages of Change Stages of Change:: Action - Diabetes Diabetes:: No Insulin: No Non-Insulin Dependent?: No - Weight Management Height: 5 ft 11 in Weight:: 246 lb Weight Goal (kg):: 179 lb Body Fat %:: 39.81 - Patient could benefit from structured weight loss program. - Intervention Referral to dietitian:: No Referral to Diabetic Clinic:: No Will attend diet classes:: Yes - Education Education Goal Reached?: Yes Tobacco - Initial Assessment - Program Goals Tobacco Program Goals: Complete smoking cessation. Attend education classes. Improve Knowledge Test score - Learning Barriers Learning Barriers: Hearing, Vision, Ready to Learn Tobacco - Final Assessment - Program Goals Tobacco Program Goals: Complete smoking cessation. Attend education classes. Improve Knowledge Test score - Stage of Change Stages of Change:: Action - Family Support Do you have family support?: Yes - Tobacco Use Tobacco Use: Non-smoker Do you use smokeless tobacco?: No - Intervention Education Schedule Given:: Yes - Education Education Goal Reached?: Yes Psychosocial - Initial Assess - Target Goals Target Goals: Assess presence or absence of depression. Using a valid screening tool, maximizes coping skills. Positive support system - Psychosocial Test Tool Used:: HANDS Depression Questionnaire - Assistive Devices Fall Risk Assessed:: Yes Psychosocial - Final Assessmen - Target Goals Target Goals: Assess presence or absence of depression. Using a valid screening tool, maximizes coping skills. Positive support system - Stages of Change Stages of Change:: Action - Psychosocial Test Tool Used:: HANDS Depression Questionnaire - Intervention PS - Interventions: Yes Attend Stress Management Classes, Yes Uses Stress Management Skills, No Referral to Mental Health, No Referral to [facility] Case Management, No Referral to Physician - Education Education Goal Reached?: Yes - Patient/Program Goal Preventative Medication(s):: Aspirin, Clopidogrel, Beta lawrence, Statin/lipid - Assistive Devices Assistive Devices:: None Fall Risk Assessed:: Yes Patient Health Questionnaire Discharge Assessment 1. Little interest or pleasure in doing things: Not at all 2. Feeling down, depressed, or hopeless: Not at all 3. Trouble falling or staying asleep, or sleeping too much: Not at all 4. Feeling tired or having little energy: Not at all 5. Poor appetite or overeating: Not at all 6. Feeling bad about yourself -- or that you are a failure or have let yourself or your family down: Not at all 7. Trouble concentrating on things, such as reading the newspaper or watching television: Not at all 8. Moving or speaking so slowly that other people could have noticed. Or the opposite - being so fidgety or restless that you have been moving around a lot more than usual: Not at all 9. Thoughts that you would be better off , or of hurting yourself in some way: Not at all Total Score: 0 GAYATRI-Q SV Test - Statements CAD is a disease of the arteries in the heart: False Examples of risk factors for heart disease: True Angina is chest pain or discomfort: True The benefits of resistance training include: True Eating more meat and dairy products: False Anti-platelet medications such as aspirin are important: True The only effective way to manage stress: False An exercise warm-up slowly increases heart rate: True Prepared, processed foods usually have high sodium: True Depression is common after a heart attack: True The statin medications lower cholesterol: True To control blood pressure, lower the amount of sodium: True If someone gets chest discomfort during walking: False Transfats are partially hydrogenated vegetable oils: True Sleep apnea that is not treated increases the risk: False To control cholesterol, one should become a vegetarian: False Someone knows if he/she is exercising at the right level: True Diabetes cannot be prevented with exercise & health eating: False Stress is a large risk for heart attack: True A diet that can help lower blood pressure is rich in: True - Total Score Total Correct Responses: 20 Self-Efficacy Discharge Assessment We would like to know how confident you are in doing certain activities. Please select your confidence level for:: Select your confidence level for the following using the scale 1-10 where 1 is not at all confident and 10 is totally confident. Your score is the average of all 6 responses. Fatigue: How confident are you that you can keep the fatigue caused by your disease from interfering with the things you want to do? Select Number: 10 Physical Discomfort or Pain: How confident are you that you can keep the physical discomfort or pain of your disease from interfering with the things you want to do? Select Number: 10 Emotional Distress: How confident are you that you can keep the emotional distress caused by your disease from interfering with the things you want to do? Select Number: 10 Other Symptoms or Health Problems: How confident are you that you can keep other symptoms or health problems from interfering with the things you want to do? Select Number: 10 Different Tasks and Activities: How confident are you that you can do the different tasks and activities needed to manage your health condition so as to reduce your need to see a doctor? Select Number: 10 Medication: How confident are you that you can do things other than just taking medication to reduce how much your illness affects your everyday life? Select Number: 10 Total Score:: 10 Nutrition Survey - Nutrition Survey Instructions Scoring Instructions: Scoring is as follows: Yes = 1 points. No = 0 point. Patient score that is >/=12 is considered to be at potential nutritional risk and could benefit from a referral to a registered dietitian. - Nutrition Survey Discharge Have you lost >10 lbs over the past 2 months without trying?: No Are you following a special diet at home for diabetes, low fat, or low salt?: Yes - Low fat, low sodium, 1800 calorie cardiac diet Are you interested in meeting with a dietitian for help understanding your diet?: No Do you eat less than 3 meals a day?: No Do you eat fatty meats (jc, sausage, ribs, etc), fried foods, desserts, large amounts of salad dressings, margarine, butter, or cheese most days?: No Do you have food allergies? [Enter types in comment field]: No Do you eat in restaurants more than 3 times a week?: No Do you season food with salt, seasoning salt, or garlic salt?: No Do you used canned, boxed, frozen meals, or soups, seasoning packets?: No Total Score:: 1
[2018-05-21 13:02] VITALS: BP 180/90
== END 2018-05-28 23:59 ==
LOC: CR 09:15
PROVIDERS: Family Provider Family Medicine; PCP Family Medicine
DX: I35.1 Nonrheumatic aortic (valve) insufficiency (principal); Z95.1 Presence of aortocoronary bypass graft; Z95.2 Presence of prosthetic heart valve
CPT/HCPCS: 93798

== ENCOUNTER 2019-04-21 17:41 | Emergency (ER) | payer MEDICARE, SELFPAY ==
[2019-04-21 17:42] VITALS: BP 152/72; PULSE 67; RESP 18; TEMP 36.9; O2SAT 95; BMI 38.4
[2019-04-21] MEDS: Diphth,Pertuss(Acell),Tet Vac 0.5 ML Vial IM (18:32)
--- NOTE | 2019-04-21 18:36 | ED.DCSUM_ITS ---
- ER Visit Summary Date of Service: 04/21/19 Chief Complaint: [place] in hand History of Present Illness: The patient is a 73 M unsure of his last tetanus shot presents to the emergency department for fishhook hand. The patient states that he was reaching into a bag with his fishing gear. His fishhook punctured his left middle finger on the dorsum. He was unable to get it out because of the barbs. He denies other injury. He is otherwise been in his normal state of health. Physical Examination: Exam is relatively unremarkable. Patient does have a 3 barbed hook from a lower with 1 of the barbs implanted on the dorsum of the mid phalanges of the left third finger. Cap refill is normal. Sensation is preserved to light touch Test Results: [] Emergency Department Course and Treatment: Patient's tetanus was updated. His wound was anesthetized. I was able to remove it with gentle traction. The wound was irrigated. Bacitracin dressing was applied. Patient will be discharged home. Treatment Plan: [] Disposition: Discharge Impression: 1. [place] in hand This note was generated with [employer] dictation software. It may contain incorrect words, spelling, and punctuation that were not noted in review of the chart prior to signing ED Disposition - Plan for ED Patient: Instructions: Fish Hook Removal Referrals: Billy Braga DO [Primary Care Provider] -
== END 2019-04-21 18:58 | disposition home or self-care (01) ==
LOC: ED 18:26
PROVIDERS: Emergency Provider Emergency Medicine; Family Provider Family Medicine; PCP Family Medicine
DX: S61.243A Puncture wound with foreign body of left middle finger without damage to nail, initial encounter (principal); W45.8XXA Other foreign body or object entering through skin, initial encounter; Y93.89 Activity, other specified; Y92.9 Unspecified place or not applicable; Y99.9 Unspecified external cause status; Z23 Encounter for immunization; I10 Essential (primary) hypertension; Z79.01 Long term (current) use of anticoagulants; Z79.82 Long term (current) use of aspirin; Z79.899 Other long term (current) drug therapy
CPT/HCPCS: 90471; 90715; 99282

== ENCOUNTER 2019-07-13 15:07 | Emergency (ER) | payer MEDICARE, SELFPAY ==
[2019-07-13 15:09] VITALS: BP 148/75; PULSE 65; RESP 16; TEMP 36.7; O2SAT 93; BMI 39.1
--- NOTE | 2019-07-13 15:42 | RAD_ITS ---
STUDY: X-RAY - LEFT HAND REASON FOR EXAM: Male, 74 years old. Injury, fall. TECHNIQUE: 3 view(s) of the hand. COMPARISON: None. FINDINGS: Normal radiocarpal articulation. Normal distal radioulnar joint. Normal visualized carpal bones. Normal carpal articulations Normal carpometacarpal articulation of the thumb. Normal second through fifth carpometacarpal joints. Normal metacarpi. Normal metacarpophalangeal joint of the thumb. Normal interphalangeal joint of the thumb. Normal proximal and distal phalanges of the thumb. Normal metacarpophalangeal joints of the second through fifth fingers. Normal proximal and distal interphalangeal joints of the second through fifth fingers. Normal phalanges of the second through fifth fingers. The soft tissue structures are unremarkable. RAD/Hand Min 3 Views IMPRESSION: Normal x-ray examination of the hand. Electronically Signed: Dania Pathak MD at 16:44 EDT Tel , Service support ,
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
--- NOTE | 2019-07-13 16:07 | ED.DEP ---
ED Disposition - Plan for ED Patient: Disposition: Home or Assisted Living Instructions: CONTUSION, Hand Referrals: Billy Braga DO [Primary Care Provider] - 1 Week if not improving Additional Instructions: Ice and elevate left hand. Tylenol and Motrin for pain. History of follow-up if not reevaluated.
[2019-07-13 16:20] VITALS: RESP 18
== END 2019-07-13 16:21 | disposition home or self-care (01) ==
PROVIDERS: Emergency Provider Emergency Medicine; Family Provider Family Medicine; PCP Family Medicine
DX: S60.222A Contusion of left hand, initial encounter (principal); V19.9XXA Pedal cyclist (driver) (passenger) injured in unspecified traffic accident, initial encounter; Y93.55 Activity, bike riding; Y92.9 Unspecified place or not applicable; Y99.9 Unspecified external cause status; E11.9 Type 2 diabetes mellitus without complications; I10 Essential (primary) hypertension; Z79.01 Long term (current) use of anticoagulants; Z79.84 Long term (current) use of oral hypoglycemic drugs; Z79.82 Long term (current) use of aspirin; Z79.899 Other long term (current) drug therapy
CPT/HCPCS: 73130; 99282

== ENCOUNTER 2022-12-26 15:22 | Emergency (ER) | payer OTHER, SELFPAY ==
[2022-12-26 15:22] VITALS: BP 150/74; PULSE 60; RESP 15; TEMP 36.7; O2SAT 96; BMI 38.1
[2022-12-26 15:24] VITALS: BP 114/63; PULSE 63; RESP 19; TEMP 36.8; O2SAT 92
--- NOTE | 2022-12-26 15:38 | EKG12_ITS ---
Test Reason : SOB Blood Pressure : / mmHG Vent. Rate : 069 BPM Atrial Rate : 070 BPM P-R Int : 000 ms QRS Dur : 088 ms QT Int : 406 ms P-R-T Axes : 000 -27 067 degrees QTc Int : 435 ms Sinus rhythm Occasional PVC's Low voltage QRS Inferior infarct , age undetermined Poor R wave progression Abnormal ECG Confirmed by ANTWAN RUSSO, SANTOS ([id number]), commercial production editor TEVIN KIRBY ([id number]) on 12/28/2022 9:44:56 AM Referred By: Confirmed By:SANTOS MONCADA MD
--- NOTE | 2022-12-26 15:41 | ED.VIS.DYS ---
HPI History of Present Illness Chief Complaint: Shortness of Breath Narrative Narrative: Patient presents with exertional dyspnea for about a month. He tells me he continues to work, sometimes at work he gets short of breath after walking a certain distance also when he walks his dog he gets short of breath after certain distance. He has no cough or congestion. He has lower extremity edema, he thinks is about the same. He has no orthopnea. He does not notice any pallor, normal stools. He is denying chest pain. [facility] Medical History (Updated 12/26/22 @ 17:[address] Sean Alford MD) Coronary atherosclerosis due to severely calcified coronary lesion Hernia Tonsil and adenoid disease, chronic Home Medications aspirin 81 mg tablet,delayed release (Aspir-Low) 81 mg PO DAILY ANTIPLATELET 02/21/18 [History Last Taken 02/21/18 81 MG] docusate sodium 100 mg capsule (DOK) 100 mg PO BID PRN Constipation 02/21/18 [History Last Taken 02/21/18 100 MG] metformin 500 mg tablet 500 mg PO BIDCM DIABETES 02/21/18 [History Last Taken 02/21/18 500 MG] metoprolol tartrate 25 mg tablet 25 mg PO BID BLOOD PRESSURE 02/21/18 [History Last Taken 02/21/18 25 MG] simvastatin 20 mg tablet 20 mg PO QHS HYPERLIPIDEMIA 02/21/18 [History Last Taken 02/21/18 20 MG] cholecalciferol (vitamin D3) 50 mcg (2,000 unit) capsule (Vitamin D3) 2,000 unit PO DAILY 03/26/18 [History Last Taken Unknown] levothyroxine 25 mcg tablet 25 mcg PO DAILY 03/26/18 [History Last Taken Unknown] diclofenac sodium 1 % topical gel (Voltaren Arthritis Pain) 4 g topical TID #100 grams 03/01/22 [Rx Last Taken Unknown] furosemide 40 mg tablet (Lasix) 40 mg PO DAILY #14 tabs 12/26/22 [Rx Last Taken Unknown] Allergy/AdvReac Type Severity Reaction Status Date / Time Penicillins Allergy Other Verified 12/26/22 15:24 Family History (Updated 03/26/18 @ 10:44 by Mendoza Shaffer, RESISTANCE WELDING MACHINE OPERATOR, [employer] MAKER, BS) Mother Cancer Father Heart failure Surgical History (Updated 12/26/22 @ 17:[address] Sean Alford MD) History of tonsillectomy and adenoidectomy S/P AVR (aortic valve replacement) S/P CABG x 1 Social History Smoking Status: Never smoker ROS ROS ED ROS Narrative Past medical history: Reviewed his recent, includes hypothyroidism, hypertension, hypercholesterolemia and diabetes Medications: Reviewed Social history: Noncontributory Review of systems: All systems negative except as indicated General: No fever Eyes: No visual changes ENT: No upper airway congestion, normal voice Neck: No neck pain Cardiovascular: No chest pain Respiratory: Exertional dyspnea as in HPI Gastrointestinal: No abdominal pain, nausea vomiting or diarrhea Genitourinary: No dysuria Musculoskeletal: Denies myalgias no difficulty with ambulation Skin: No rash Neurological: No memory loss, confusion or any focal weakness Psych: No recent behavioral changes Hematologic: No easy bleeding or easy bruising EXAM Physical Exam Narrative Exam Narrative: Physical exam General: Well nourished, Well developed, No Acute Distress Head: Normocephalic, Atraumatic Eyes: Conjunctiva not pale ENT: Moist mucous membranes Neck: Supple, Nontender, No lymphadenopathy Cardiovascular: Regular rate, Regular rhythm Respiratory: No distress, coarse bilateral breath sounds but he has no wheezing, no rhonchi. Abdomen: Soft, Nontender, Nondistended Back: Nontender, Normal Inspection. Negative for: CVA tenderness Extremities: Nontender, No edema Skin: Normal color, No rash Neurological: Alert, Normal Strength, Normal Sensation Psychological: Normal affect Const Vital Signs: 12/26/22 15:22 12/26/22 15:35 12/26/22 15:24 Temperature 98.1 F 98.2 F Temperature Source Temporal Temporal Pulse Rate 60 63 Respiratory Rate 15 19 H Respiratory Effort Short of Breath Respiratory Depth Normal Respiratory Pattern Normal Blood Pressure 150/74 H 114/63 Blood Pressure Mean 99 80 Pulse Ox 96 92 Oxygen Delivery Method Room Air Room Air 12/26/22 16:24 12/26/22 17:00 Temperature 98.1 F 98.0 F Temperature Source Temporal Temporal Pulse Rate 65 68 Respiratory Rate 18 16 Respiratory Effort Respiratory Depth Respiratory Pattern Blood Pressure 112/65 116/67 Blood Pressure Mean 80 83 Pulse Ox 93 94 Oxygen Delivery Method Room Air Room Air MDM MDM Lab Data Labs: Laboratory Results - last 24 hr 12/26/22 12/26/22 12/26/22 15:33 15:33 15:33 WBC 9.8 RBC 4.36 L Hgb 13.4 Hct 43.6 MCV 100.0 H MCH 30.7 MCHC 30.7 L RDW Std Deviation 52.6 H RDW Coeff of Mukul 14.5 Plt Count 292 MPV 9.9 Immature Gran % (Auto) 0.600 Neut % (Auto) 75.5 H Lymph % (Auto) 12.5 L Bremer % (Auto) 9.2 Eos % (Auto) 1.6 Baso % (Auto) 0.6 Absolute Neuts (auto) 7.4 Absolute Lymphs (auto) 1.22 Nucleated RBC % 0 Sodium 140 Potassium 4.6 Chloride 105 Carbon Dioxide 26.0 Anion Gap 9 BUN 31 H Creatinine 1.84 H Estim Creat Clear Calc 36.95 Est GFR (MDRD) Af Amer 46 L Est GFR (MDRD) Non-Af 38 L BUN/Creatinine Ratio 16.8 Glucose 157 H Calcium 9.7 Total Bilirubin 1.80 H AST 19 ALT 27 Alkaline Phosphatase 119 H Troponin I High Sens 8 B-Natriuretic Peptide 653.8 H Total Protein 7.2 Albumin 3.8 Globulin 3.4 Albumin/Globulin Ratio 1.1 Radiography Diagnostic Testing: Clinical Impression(s) from Imaging Studies Chest X-Ray 12/26/22 16:00 IMPRESSION: CHF. Electronically Signed: Sean Borjas MD at 16:18 EST , EKG Initial EKG: Comments: Sinus rhythm with a rate of 69. Normal OK and QTc intervals. No ischemic changes. Interpreted by emergency doctor Treatment and Re-Evaluation Narrative: A. Problems addressed Patient presents with exertional dyspnea, he is found to have some pulmonary edema, elevated natruretic peptide and lower extremity edema. This is consistent with CHF. I am not worried about a PE, he has no pleuritic component to his diagnosis points towards CHF. He has no ischemic changes on his EKG and not worried about acute coronary syndrome. He does have a history of mitral valve replacement and bypass x1. This was 5 years ago at the [facility] he has not had an echocardiogram since then therefore he likely will need it. B. Amount and/or complexity of the data 1. CBC CMP troponin natruretic peptide read by me 2. Independent interpretation of test Telemetry: Sinus rhythm with a rate in the 60s. No ectopy to monitor for any 3. I discussed the patient with Dr. Cannon who is okay with the patient following up. C. Risk of complications and/or morbidity Differential diagnosis: See above I have thought about admitting the patient, however because the patient's pulse ox is relatively normal, we have a good outpatient plan to follow-up with cardiology and get an outpatient echocardiogram and regarding start the patient on Lasix I believe it is safe to discharge. Discharge Plan Triage Chief Complaint: Shortness of Breath ED Provider: Sean Alford Dx/Rx/DC Orders Clinical Impression: Acute dyspnea, CHF (congestive heart failure), Hx of CABG Instructions: What Is Heart Failure Prescriptions: New furosemide [Lasix] 40 mg tablet 40 mg PO DAILY Qty: 14 0RF No Action diclofenac sodium [Voltaren Arthritis Pain] 1 % gel 4 g topical TID Qty: 100 0RF Rx Instructions: apply to single knee metformin 500 MG tablet 500 mg PO BIDCM aspirin [Aspir-Low] 81 MG tablet,delayed release (DR/EC) 81 mg PO DAILY simvastatin 20 MG tablet 20 mg PO QHS docusate sodium [DOK] 100 MG capsule 100 mg PO BID PRN (Reason: Constipation) metoprolol tartrate 25 MG tablet 25 mg PO BID levothyroxine 25 MCG tablet 25 mcg PO DAILY cholecalciferol (vitamin D3) [Vitamin D3] 2,000 UNIT capsule 2,000 unit PO DAILY Primary Care Provider: Billy Braga Referrals: Billy Braga DO [Primary Care Provider] - Sean Cannon MD [Med Staff - Active Staff] - 3-5 Days Disposition Disposition: Home, Self Care
--- NOTE | 2022-12-26 16:00 | RAD_ITS ---
INDICATION: SOB EXAMINATION/TECHNIQUE: X-RAY - XR Chest 2 Views COMPARISON: 02/21/2018 FINDINGS: LUNGS: No consolidation, edema or effusion. No pneumothorax. MEDIASTINUM AND CARDIOVASCULAR STRUCTURES: Sternal wires and CABG. Aortic valve prosthesis Mild cardiomegaly and pulmonary vascular enlargement. Central airways are unremarkable. RAD/Chest PA and Lateral IMPRESSION: CHF. Electronically Signed: Sean Borjas MD at 16:18 EST ,
[2022-12-26 16:08] LABS: Absolute Lymphocyte Count 1.22 X10^3/uL (0.83-4.51); Absolute Neutrophil Count 7.4 X10^3/uL (2.0-7.7); Basophil# 0.06 X10^3/uL; Basophil% 0.6 % (0-1); Eosinophil# 0.16 X10^3/uL; Eosinophils% 1.6 % (0-5); Hematocrit 43.6 % (40-54); Hemoglobin 13.4 g/dL (13.0-16.5); Lymphocyte # 1.22 X10^3/ul (0.83-4.51); Lymphocyte % 12.5 % (19-41); Mean Corp Hgb Conc 30.7 g/dL (32-36); Mean Corpuscular Hgb 30.7 pg (27.0-32.0); Mean Platelet Vol. 9.9 fl (6.2-12.0); Monocyte% 9.2 % (0-10); NRBC Flagged by Analyzer 0 % (0-5); Neutrophil # 7.35 X10^3/uL (2.7-7.7); Neutrophil % 75.5 % (47-70); Platelet Count 292 K/mm3 (150-450); RBC Distribution Width CV 14.5 % (11.6-14.6); RBC Distribution Width SD 52.6 fl (35.1-43.9); Red Blood Count 4.36 M/mm3 (4.6-6.2); White Blood Count 9.8 K/mm3 (4.4-11.0)
[2022-12-26 16:22] LABS: ALB/GLOB Ratio 1.1 RATIO (0.9-2.4); AST(SGOT) 19 U/L (15-37); Alanine Aminotransfer ALT/SGPT 27 U/L (16-61); Albumin, Serum 3.8 g/dL (3.2-5.0); Alkaline Phosphatase 119 U/L (45-117); Anion Gap 9 (5-15); BUN 31 mg/dL (7-18); BUN/Creat Ratio 16.8 RATIO (10-20); Calcium,Total 9.7 mg/dL (8.5-10.1); Chloride 105 mmol/L (98-107); Creatinine, Serum 1.84 mg/dL (0.70-1.30); EST Glomerular Filtration Rate 38 mL/min (>60); Est Glom Filt Rate - Afr Amer 46 mL/min (>60); Estimated Creatinine Clearance 36.95 ml/min; Globulin 3.4 g/dL (2.2-4.2); Glucose 157 mg/dL (74-106); Potassium 4.6 mmol/L (3.5-5.1); Protein, Total 7.2 g/dL (6.4-8.2); Sodium Level 140 mmol/L (136-145); Troponin-I HS 8 pg/mL (3.0-78.0)
[2022-12-26 16:24] VITALS: BP 112/65; PULSE 65; RESP 18; TEMP 36.7; O2SAT 93
[2022-12-26 16:39] LABS: BNP,B-Type NATRIURETIC PEPTIDE 653.8 pg/mL (0-100)
[2022-12-26 17:00] VITALS: BP 116/67; PULSE 68; RESP 16; TEMP 36.7; O2SAT 94
[2022-12-26] MEDS: Furosemide 40 MG/4 ML Vial IV (17:38)
[2022-12-26 17:42] VITALS: BP 123/88; PULSE 67; RESP 18; TEMP 36.7; O2SAT 92
== END 2022-12-26 17:43 | disposition home or self-care (01) ==
PROVIDERS: Emergency Provider Emergency Medicine; PCP Family Medicine; Visit Provider Emergency Medicine
DX: R06.00 Dyspnea, unspecified (principal); I11.0 Hypertensive heart disease with heart failure; I50.9 Heart failure, unspecified; E11.9 Type 2 diabetes mellitus without complications; I25.10 Atherosclerotic heart disease of native coronary artery without angina pectoris; E78.00 Pure hypercholesterolemia, unspecified; E03.9 Hypothyroidism, unspecified; Z79.82 Long term (current) use of aspirin; Z79.84 Long term (current) use of oral hypoglycemic drugs; Z79.899 Other long term (current) drug therapy
CPT/HCPCS: 71046; 80053; 83880; 84484; 85025; 87811; 93005; 96374; 99283; A4216; J1940

== ENCOUNTER 2025-07-03 06:45 | Emergency (ER) | payer OTHER, SELFPAY ==
[2025-07-03 06:45] VITALS: BP 147/73; PULSE 63; RESP 18; TEMP 36.7; O2SAT 94; BMI 37.7
--- NOTE | 2025-07-03 07:00 | CT_ITS ---
PROCEDURE: BRAIN/HEAD WITHOUT CONTRAST 07/03/2025 REASON FOR EXAM: FALL TECHNIQUE: Procedure Code: CTBR Modality: CT Procedure: BRAIN/HEAD WITHOUT CONTRAST Coronal and Sagittal reconstruction series were provided. One or more dose reduction techniques were used (e.g., Automated exposure control, adjustment of the mA and/or kV according to patient size, use of iterative reconstruction technique. RADIATION DOSE SUMMARY: DLP: 1540 mGycm COMPARISON: None FINDINGS: There is no acute infarct, intracranial hemorrhage, or mass effect. There is no hydrocephalus or significant midline shift. There is mild chronic microvascular ischemic changes and mild parenchymal volume loss. No acute, depressed calvarial fractures. No large scalp hematomas. The paranasal sinuses are clear. CT/Brain/Head without Contrast IMPRESSION: No acute intracranial process. Reading Location: [id number]
--- NOTE | 2025-07-03 07:00 | CT_ITS ---
PROCEDURE: SPINE CERVICAL WITHOUT CONTRAS 07/03/2025 REASON FOR EXAM: FALL TECHNIQUE: Procedure Code: CTSPC Modality: CT Procedure: SPINE CERVICAL WITHOUT CONTRAS Coronal and Sagittal reconstruction series were provided. One or more dose reduction techniques were used (e.g., Automated exposure control, adjustment of the mA and/or kV according to patient size, use of iterative reconstruction technique. 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 Possible fracture of the anterior osteophyte at C4. No other acute compression deformity, fracture, or subluxation. Moderate multilevel degenerative changes with moderate multilevel central canal stenosis and foraminal stenosis due to posterior disc-osteophyte complex, facet hypertrophy, and uncovertebral hypertrophy most prominent at C6-C7. The prevertebral soft tissues are not thickened. Thyroid is unremarkable. Limited sections of the lung apices demonstrate no pneumothorax. 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 Possible fracture of the anterior osteophyte at C4. No other acute compression deformity, fracture, or subluxation. Moderate multilevel degenerative changes of the cervical spine with moderate ce ntral canal stenosis most prominent at C6-C7. Reading Location: [facility]
--- NOTE | 2025-07-03 07:02 | EDS_ITS ---
HPI History of Present Illness Chief Complaint: Fall Narrative Narrative: Patient is a 72-year-old male status post CABG, status post aortic valve replacement, CAD who presented to the emergency department chief complaint of fall. Patient notes that he was letting the dog outside this morning when he tripped over some boards landing on the concrete. He states that he did hit his head but did not pass out. He states that he is on Eliquis as well. Patient states he is unsure when his last tetanus shot was. He is complaining of right hand pain and a cut. [facility] Medical History Tonsil and adenoid disease, chronic Hernia Coronary atherosclerosis due to severely calcified coronary lesion Home Medications ?Medication ?Instructions ?Recorded ?Last Taken ?Type metformin 500 mg tablet 500 mg PO BIDCM DIABETES 02/21/18 History 500 MG metoprolol tartrate 25 mg tablet 25 mg PO BID BLOOD AL ESSURE 02/21/18 02/21/18 History 25 MG cholecalciferol (vitamin D3) 50 2,000 unit PO DAILY Unknown History mcg (2,000 unit) capsule (Vitamin D3) apixaban 5 mg tablet (Eliquis) 5 mg PO BID 07/03/25 Un known History aspirin 81 mg capsule 81 mg PO DAILY 07/03/25 Unkn own History atorvastatin 10 mg tablet (Lipitor) 10 mg PO QHS 07/03 Unknown History furosemide 40 mg tablet (Lasix) 20 mg PO DAILY 5 Unknown History levothyroxine 75 mcg tablet 75 mcg PO DAILY 07/03/25 U nknown History (Synthroid) lisinopril 10 mg tablet 10 mg PO DAILY 07/03/25 Unkn own History tamsulosin 0.4 mg capsule 0.4 mg PO DAILY 07/03/25 Unk nown History Allergy/AdvReac Type Severity Reaction Status Date / Time Penicillins Allergy Other Verified 07/03/25 06:45 Family History Mother Cancer Father Heart failure Surgical History History of tonsillectomy and adenoidectomy S/P AVR (aortic valve replacement) S/P CABG x 1 Social History Smoking Status: Never smoker ROS ROS ED ROS Narrative Constitutional: Denies any headache, lightness, dizziness, fevers, chills Eyes: Denies double vision Cardiovascular: Denies chest pain Respiratory: Denies shortness of breath Abdomen: Denies abdominal pain nausea vomit diarrhea Neurological: Denies any numbness, weakness, tingling Musculoskeletal: Complains of right hand pain as noted above Skin: Complains of laceration of the right hand EXAM Physical Exam Narrative Exam Narrative: General: Patient lying in bed rest comfortably did not appear to be in acute distress Head: Atraumatic, normocephalic Eyes: PERRL bilaterally, EOMI bilateral, no conjunctival injection noted Neck: Soft, supple, trachea midline no tenderness palpation midline cervical spine Cardiovascular: Regular rate Respiratory: Clear to auscultation bilaterally Abdomen: No tenderness to palpation Musculoskeletal: No tenderness palpation in the midline of the thoracolumbar spine, patient has mild tenderness palpation over the right volar aspect of his hand near his fifth phalanx and near his wrist, all other bony prominences palpated joints taken through full range of motion no pain elicited Extremities: +5/5 strength noted in the bilateral upper and lower extremities, radial pulses +2/4 in the bilateral extremities
--- NOTE | 2025-07-03 07:02 | EX.ED.DYSGE1 ---
HPI History of Present Illness Chief Complaint: Fall Narrative Narrative: Patient is a 72-year-old male status post CABG, status post aortic valve replacement, CAD who presented to the emergency department chief complaint of fall. Patient notes that he was letting the dog outside this morning when he tripped over some boards landing on the concrete. He states that he did hit his head but did not pass out. He states that he is on Eliquis as well. Patient states he is unsure when his last tetanus shot was. He is complaining of right hand pain and a cut. [facility] Medical History Tonsil and adenoid disease, chronic Hernia Coronary atherosclerosis due to severely calcified coronary lesion Home Medications ?Medication ?Instructions ?Recorded ?Last Taken ?Type metformin 500 mg tablet 500 mg PO BIDCM DIABETES 02/21/18 02/21/18 History 500 MG metoprolol tartrate 25 mg tablet 25 mg PO BID BLOOD PRESSURE 02/21/18 02/21/18 History 25 MG cholecalciferol (vitamin D3) 50 2,000 unit PO DAILY 03/26/18 Unknown History mcg (2,000 unit) capsule (Vitamin D3) apixaban 5 mg tablet (Eliquis) 5 mg PO BID 07/03/25 Unknown History aspirin 81 mg capsule 81 mg PO DAILY 07/03/25 Unknown History atorvastatin 10 mg tablet (Lipitor) 10 mg PO QHS 07/03/25 Unknown History furosemide 40 mg tablet (Lasix) 20 mg PO DAILY 07/03/25 Unknown History levothyroxine 75 mcg tablet 75 mcg PO DAILY 07/03/25 Unknown History (Synthroid) lisinopril 10 mg tablet 10 mg PO DAILY 07/03/25 Unknown History tamsulosin 0.4 mg capsule 0.4 mg PO DAILY 07/03/25 Unknown History Allergy/AdvReac Type Severity Reaction Status Date / Time Penicillins Allergy Other Verified 07/03/25 06:45 Family History Mother Cancer Father Heart failure Surgical History History of tonsillectomy and adenoidectomy S/P AVR (aortic valve replacement) S/P CABG x 1 Social History Smoking Status: Never smoker ROS ROS ED ROS Narrative Constitutional: Denies any headache, lightness, dizziness, fevers, chills Eyes: Denies double vision Cardiovascular: Denies chest pain Respiratory: Denies shortness of breath Abdomen: Denies abdominal pain nausea vomit diarrhea Neurological: Denies any numbness, weakness, tingling Musculoskeletal: Complains of right hand pain as noted above Skin: Complains of laceration of the right hand EXAM Physical Exam Narrative Exam Narrative: General: Patient lying in bed rest comfortably did not appear to be in acute distress Head: Atraumatic, normocephalic Eyes: PERRL bilaterally, EOMI bilateral, no conjunctival injection noted Neck: Soft, supple, trachea midline no tenderness palpation midline cervical spine Cardiovascular: Regular rate Respiratory: Clear to auscultation bilaterally Abdomen: No tenderness to palpation Musculoskeletal: No tenderness palpation in the midline of the thoracolumbar spine, patient has mild tenderness palpation over the right volar aspect of his hand near his fifth phalanx and near his wrist, all other bony prominences palpated joints taken through full range of motion no pain elicited Extremities: +5/5 strength noted in the bilateral upper and lower extremities, radial pulses +2/4 in the bilateral extremities Neurological: Patient following commands knew that he was at [facility] year is 2024 Skin: Warm, dry, patient has a complex laceration noted to the volar aspect of his right hand at the base of the fifth phalanx Const Vital Signs: 07/03/25 06:45 07/03/25 06:50 Temperature 98.1 F Temperature Source Oral Pulse Rate 63 Respiratory Rate 18 Respiratory Effort Normal Non-Labored Respiratory Depth Normal Respiratory Pattern Normal Blood Pressure 147/73 H Blood Pressure Mean 97 Pulse Ox 94 Oxygen Delivery Method Room Air Room Air MDM MDM MDM Narrative Medical decision making narrative: Patient is a 80-year-old male who presents to the emergency department this morning after mechanical fall after tripping over boards causing him to fall forward with a laceration to his right hand and hitting his head. On the differential diagnose includes but not limited to intracranial hemorrhage, cervical spine fracture, metacarpal fracture, fifth phalanx fracture Patient CT head brain without contrast showed no acute intracranial processes. 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 Patient has no no neck pain noted on exam clinically to correlate with this no acute compression deformity fracture or subluxation moderate multilevel degenerative changes of cervical spine with moderate central canal stenosis most prominent at C6-C7. Patient's forearm x-ray showed no fracture dislocations scattered mild degenerative changes no acute soft tissue abnormalities no radiograph foreign body. This was reviewed by myself and by radiology. Patient's hand x-ray reviewed by myself and by radiology showed no fracture dislocations. Patient's x-ray of his wrist was also reviewed by myself by radiology showed no acute fracture or dislocation. Patient had a laceration repaired here in the emergency department see procedure note for separate details. Patient was advised to keep the area dry and clean and use Tylenol for pain control. Patient was advised to watch out for signs of infection and if this is to occur he is to return to the emergency department or call his primary care physician for antibiotics. He was advised to have his sutures removed in approximately 7 to 10 days. He is vies to return with worsening symptoms or any other concerns. He is agreeable to plan as well as significant other bedside all question concerns answered he is discharged home in stable condition peer Radiography Diagnostic Testing: Clinical Impression(s) from Imaging Studies Brain CT 07/03/25 07:00 IMPRESSION: No acute intracranial process. Reading Location: [facility] Cervical Spine CT 07/03/25 07:00 IMPRESSION: Flowing bridging anterior osteophytes may reflect DISH. Possible fracture of the anterior osteophyte at C4. No other acute compression deformity, fracture, or subluxation. Moderate multilevel degenerative changes of the cervical spine with moderate central canal stenosis most prominent at C6-C7. Reading Location: [facility] Forearm X-Ray 07/03/25 07:11 IMPRESSION: No acute fracture or dislocations. Scattered mild degenerative changes. No acute soft tissue abnormalities. No radiographic foreign body. Reading Location: [facility] Hand X-Ray 07/03/25 07:11 IMPRESSION: No acute fracture or dislocations. Scattered mild degenerative changes. Mild soft tissue edema/contusion. No radiographic foreign body. Reading Location: [facility] Wrist X-Ray 07/03/25 07:11 IMPRESSION: No acute fracture or dislocations. Scattered mild degenerative changes. No acute soft tissue abnormalities. No radiographic foreign body. Reading Location: [facility] Discharge Plan Triage Chief Complaint: Fall ED Provider: Mj Ngo Dx/Rx/DC Orders Clinical Impression: Closed head injury without loss of consciousness, Hand pain, right, Complicated laceration of hand Prescriptions: No Action metformin 500 MG tablet 500 mg PO BIDCM metoprolol tartrate 25 MG tablet 25 mg PO BID cholecalciferol (vitamin D3) [Vitamin D3] 2,000 UNIT capsule 2,000 unit PO DAILY aspirin 81 mg capsule 81 mg PO DAILY levothyroxine [Synthroid] 75 mcg tablet 75 mcg PO DAILY atorvastatin [Lipitor] 10 mg tablet 10 mg PO QHS lisinopril 10 mg tablet 10 mg PO DAILY tamsulosin 0.4 mg capsule 0.4 mg PO DAILY furosemide [Lasix] 40 mg tablet 20 mg PO DAILY Eliquis 5 mg tablet 5 mg PO BID Primary Care Provider: Billy Barga Referrals: Billy Braga DO [Primary Care Provider] - Activity Restrictions/Additional Instructions: Your CT scans did not show any acute broken bones, your x-ray of your hand, wrist and forearm did not show any acute broken bones either. Have your sutures removed in approximately 7 days. Watch out for signs infection such as surrounding redness, purulent drainage if this is to occur return to the emergency department or follow-up with your physician in the outpatient setting. You may shower but do not soak your sutures do not scrub at them. Use Tylenol for pain control you can take something every 6 hours for pain max dose of Tylenol in 24 hours 4000 mg. Your tetanus shot was updated today. Return with worsening symptoms or any other concerns Print Language: Croatian Disposition Disposition: Home, Self Care
--- NOTE | 2025-07-03 07:11 | RAD_ITS ---
PROCEDURE: HAND MIN 3 VIEWS 07/03/2025 REASON FOR EXAM: FALL, HAND LAC BASE OF 5TH TECHNIQUE: Procedure Code: GINNA Modality: DX Procedure: HAND MIN 3 VIEWS Laterality: COMPARISON: None RAD/Hand Min 3 Views IMPRESSION: No acute fracture or dislocations. Scattered mild degenerative changes. Mild soft tissue edema/contusion. No radiographic foreign body. Reading Location: [id number]
--- NOTE | 2025-07-03 07:11 | RAD_ITS ---
PROCEDURE: FOREARM 2 VIEWS 07/03/2025 REASON FOR EXAM: FALL TECHNIQUE: Procedure Code: RADFA Modality: DX Procedure: FOREARM 2 VIEWS COMPARISON: None RAD/Forearm 2 Views IMPRESSION: No acute fracture or dislocations. Scattered mild degenerative changes. No acute soft tissue abnormalities. No radiographic foreign body. Reading Location: [id number]
--- NOTE | 2025-07-03 07:11 | RAD_ITS ---
PROCEDURE: WRIST MIN 3 VIEWS 07/03/2025 REASON FOR EXAM: FALL TECHNIQUE: Procedure Code: RADWR Modality: DX Procedure: WRIST MIN 3 VIEWS COMPARISON: None RAD/Wrist min 3 Views IMPRESSION: No acute fracture or dislocations. Scattered mild degenerative changes. No acute soft tissue abnormalities. No radiographic foreign body. Reading Location: [id number]
[2025-07-03] MEDS: Lidocaine 1% (20 ml mdv) 20 ML Vial 10 ML INFILT (07:21)
--- OUTSIDE RECORDS SUMMARY | 2025-07-03 07:33 | XMS RPT_ITS | CCD ---
Author Organization 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 Name Role Phone Billy Braga Primary Care Unavailable Adam Arana Attending Unavailable Billy Braga Referring Unavailable Billy Braga Primary Care Unavailable Sean Alford Attending Unavailable Billy Braga Primary Care Unavailable BRENDA TREVINO Attending Unavailable Billy Braga Primary Care Unavailable Kennedy Fung Attending Unavailable Allergies Allergy Classification Reported Allergen(s) Allergy Type Date of Onset Reaction(s) Facility (1 source) Penicillins Allergy to substance 12-26-2022 Other [facility] (1 source) Penicillins Drug allergy (disorder) 12-26-2022 [facility] Repository Medications Current Medications Medication Drug Class(es) Dates Sig (Normalized) Sig (Original) aspirin 81 mg delayed release oral tablet (1 source) Platelet Aggregation Inhibitor, Nonsteroidal Anti-inflammatory Drug Start: 02-21-2018 take 1 tablet by mouth once daily Aspirin (Aspir-Low) 81 MG tablet,delayed release (DR/EC) Active 81 MG PO DAILY February 20, 2018 11:00pm cholecalciferol 0.05 mg oral capsule (2 sources) Vitamin D Start: 03-26-2018 take 1 capsule by mouth once daily Cholecalciferol (Vitamin D3) (Vitamin D3) 2,000 UNIT capsule Active 2000 UNIT PO DAILY March 25, 2018 11:00pm Start: 02-21-2018 End: 03-26-2018 take 2000 [IU] by mouth once daily Cholecalciferol (Vitamin D3) Discontinued 2000 UNIT PO DAILY February 20, 2018 11:00pm March 26, 2018 9:36am diclofenac sodium 0.01 mg/mg topical gel (1 source) Nonsteroidal Anti-inflammatory Drug Start: 03-01-2022 Diclofenac Sodium (Voltaren Arthritis Pain) 1 % gel Active 4 GM TOPICAL THREE TIMES A DAY 100 February 28, 2022 11:00pm apply to single knee docusate sodium 100 mg oral capsule (1 source) Start: 02-21-2018 take 1 capsule by mouth twice daily Docusate Sodium (Colace) 100 MG capsule Active 100 MG PO TWICE A DAY February 20, 2018 11:00pm furosemide 40 mg oral tablet (1 source) Loop Diuretic Start: 12-26-2022 take 1 tablet by mouth once daily Furosemide (Lasix) 40 mg tablet Active 40 MG PO DAILY December 26, 2022 12:00am levothyroxine sodium 0.025 mg oral tablet (1 source) l-Thyroxine Start: 03-26-2018 take 25 ug by mouth once daily Levothyroxine Active 25 MCG PO DAILY March 25, 2018 11:00pm metFORMIN hydrochloride 500 mg oral tablet (1 source) Biguanide Start: 02-21-2018 take 500 mg by mouth twice daily at mealtime Metformin Active 500 MG PO TWICE DAILY WITH MEALS February 20, 2018 11:00pm metoprolol tartrate 25 mg oral tablet (1 source) beta-Adrenergic Wojciech Start: 02-21-2018 take 25 mg by mouth twice daily Metoprolol Tartrate Active 25 MG PO TWICE A DAY February 20, 2018 11:00pm simvastatin 20 mg oral tablet (1 source) HMG-CoA Reductase Inhibitor Start: 02-21-2018 take 20 mg by mouth at bedtime Simvastatin Active 20 MG PO AT BEDTIME February 20, 2018 11:00pm Completed/Discontinued Medications Medication Drug Class(es) Dates Sig (Normalized) Sig (Original) warfarin sodium 2.5 mg oral tablet (2 sources) Vitamin K Antagonist Start: 02-21-2018 End: 03-01-2022 take 1 tablet by mouth once Warfarin (Coumadin (Pbkc)) 2.5 MG tablet Discontinued 2.5 MG PO every Sunday, , , Sat February 20, 2018 11:00pm March 01, 2022 10:09am Start: 02-21-2018 End: 03-01-2022 Warfarin (Coumadin (Pbkc)) 5 MG tablet Discontinued 5 MG PO MOWEFR February 20, 2018 11:00pm March 01, 2022 10:10am Problems Active Problems Problem Classification Problem Date Documented Date Episodic/Chronic Congestive heart failure; nonhypertensive (1 source) Congestive heart failure; Translations: [Heart failure, unspecified] 12-26-2022 Chronic Coronary atherosclerosis and other heart disease (1 source) Calcific coronary arteriosclerosis; Translations: [Coronary atherosclerosis due to calcified coronary lesion] 03-26-2018 Chronic Osteoarthritis (1 source) Osteoarthritis of right knee joint; Translations: [Unilateral primary osteoarthritis, right knee] 03-01-2022 Chronic Other lower respiratory disease (1 source) Dyspnea; Translations: [Dyspnea, unspecified] 12-26-2022 Episodic Other lower respiratory disease (1 source) Solitary pulmonary nodule; Translations: [Solitary pulmonary nodule] Onset: 01-30-2023 Episodic Other lower respiratory disease (1 source) Shortness of breath; Translations: [Shortness of breath] Onset: 01-02-2023 Episodic Past or Other Problems Problem Classification Problem Date Documented Da te Episodic/Chronic Other non-traumatic joint disorders (2 sources) Pain in right knee; Translations: [Right knee pain] Onset: 03-01-2022 03-01-2022 Episodic Results Test Name Value Interpretation Reference Range Facility 12 Lead EKGon 12-26-2022 12 Lead EKG [facility] Cardiovascular Services [address] [place] [address] 12 Lead EKG 12/26/22 1525 MR#: [id number] Acct: [id number] Name: KANDI GOMEZ Rep #: [id number] : 1945 77 From: Sean Moncada MD Attending Dr: Status: DEP ER Ordering Dr: Sean Alford MD Date: 12/26/22 Location: ED Sex: M C Admitted: Test Reason : SOB Blood Pressure : / mmHG Vent. Rate : 069 BPM Atrial Rate : 070 BPM P-R Int : 000 ms QRS Dur : 088 ms QT Int : 406 ms P-R-T Axes : 000 -27 067 degrees QTc Int : 435 ms Sinus rhythm Occasional PVC's Low voltage QRS Inferior infarct , age undetermined Poor R wave progression Abnormal ECG Confirmed by ANTWAN RUSSO, SEAN ([id number]), science editor TEVIN KIRBY ([id number]) on 12/28/2022 9:44:56 AM Referred By: Confirmed By:SEAN MONCADA MD 12/28/22 0944 Date Sean Moncada MD CC: Dr. Billy Braga, DO; Dr. Sean Alford MD Signed Normal [facility] Absolute lymphocyte countOrd ered By: Dr. Alford on 12-26-2022 Lymphocytes Auto (Unsp spec) [#/Vol] 1.22 10*3/uL 0.83-4.51 [facility] BNP,B-Type NATRIURETIC PEPTI Peg 12-26-2022 Natriuretic peptide B (Bld) [Mass/Vol] 653.8 pg/mL High 0-100 [facility] Comment on above: Performed By: #### L 503.6620, L100.0100, L501.4020, L500.4050 #### [facility] Laboratory [address] [place], [address] Basophil percentageOrdered B y: Dr. Alford on 12-26-2022 Basophils/100 WBC (Bld) 0.6 % 0-1 [facility] Bilirubin [Mass/Vol] 1.80 mg/dL 0.20-1.00 [facility] Comment on above: For patients on eltr ombopag therapy, use of Dimension [place] TBIL is not recommended. Chloride [Moles/Vol] 105 mmol/L 98-107 [facility] Eosinophils/100 WBC (Bld) 1.6 % 0-5 [facility] Glucose [Mass/Vol] 157 mg/dL 74-106 [facility] Comment on above: Fasting Glucose resu lt greater than or equal to 126 mg/dL suggests DIABETES MELLITUS per A.D.A. criteria. Neutrophils (Bld) [#/Vol] 7.4 10*3/uL 2.0-7.7 [facility] Neutrophils/100 WBC (Bld) 75.5 % 47-70 [facility] Potassium [Moles/Vol] 4.6 mmol/L 3.5-5.1 [facility] Protein [Mass/Vol] 7.2 g/dL 6.4-8.2 [facility] Sodium [Moles/Vol] 140 mmol/L 136-145 [facility] WBC (Bld) [#/Vol] 9.8 10*3/uL 4.4-11.0 [facility] Blood erythrocytes count (nu mber/volume)Ordered By: Dr. Alford on 12-26-2022 RBC (Bld) [#/Vol] 4.36 10*6/uL 4.6-6.2 [facility] Blood hemoglobin measurement (mass/volume)Ordered By: Dr. Alford on 12-26-2022 Hemoglobin (Bld) [Mass/Vol] 13.4 g/dL 13.0-16.5 [facility] Blood lymphocytes/100 leukoc ytesOrdered By: Dr. Alford on 12-26-2022 Lymphocytes/100 WBC (Bld) 12.5 % 19-41 [facility] Blood monocytes/100 leukocyt esOrdered By: Dr. Alford on 12-26-2022 Monocytes/100 WBC (Bld) 9.2 % 0-10 [facility] Blood platelet mean volumeOr dered By: Dr. Alford on 12-26-2022 Platelet mean volume (Bld) [Entitic vol] 9.9 fL 6.2-12.0 [facility] CBC W/Diff, Automatedon 11-30 Absolute Lymph 1.22 X10 3/uL Normal 0.83-4.51 [facility] Comment on above: Performed By: #### L 503.6620, L100.0100, L501.4020, L500.4050 #### [facility] [address] [place], [address] Absolute Neut 7.4 X10 3/uL Normal 2.0-7.7 [facility] Comment on above: Performed By: #### L 503.6620, L100.0100, L501.4020, L500.4050 #### [facility] [address] [place], [address] Basophils/100 WBC (Bld) 0.6 % Normal 0-1 [facility] Comment on above: Performed By: #### L 503.6620, L100.0100, L501.4020, L500.4050 #### [facility] [address] [place], [address] Eosinophils/100 WBC (Bld) 1.6 % Normal 0-5 [facility] Comment on above: Performed By: #### L 503.6620, L100.0100, L501.4020, L500.4050 #### [facility] [address] [place], [address] Erythrocyte distribution width (RBC) [Ratio] 14.5 % Normal 11.6-14.6 [facility] Comment on above: Performed By: #### L 503.6620, L100.0100, L501.4020, L500.4050 #### [facility] [address] [place], [address] Hematocrit (Bld) [Volume fraction] 43.6 % Normal 40-54 [facility] Comment on above: Performed By: #### L 503.6620, L100.0100, L501.4020, L500.4050 #### [facility] [address] [place], [address] Hemoglobin (Bld) [Mass/Vol] 13.4 g/dL Normal 13.0-16.5 [facility] Comment on above: Performed By: #### L 503.6620, L100.0100, L501.4020, L500.4050 #### [facility] [address] [place], [address] IG% 0.600 Normal 0.0-0.9 [facility] Comment on above: Result Comment: IG% - Immature Granulocytes (promyelocytes, myelocytes and metamyelocytes) > 1% indicates that a LEFT SHIFT is Present. Performed By: #### L 503.6620, L100.0100, L501.4020, L500.4050 #### [facility] [address] [place], [address] Lymphocytes/100 WBC (Bld) 12.5 % Low 19-41 [facility] Comment on above: Performed By: #### L 503.6620, L100.0100, L501.4020, L500.4050 #### [facility] [address] [place], [address] MCH (RBC) [Entitic mass] 30.7 pg Normal 27.0-32.0 [facility] Comment on above: Performed By: #### L 503.6620, L100.0100, L501.4020, L500.4050 #### [facility] [address] [place], [address] MCHC (RBC) [Mass/Vol] 30.7 g/dL Low 32-36 [facility] Comment on above: Performed By: #### L 503.6620, L100.0100, L501.4020, L500.4050 #### [facility] [address] [place], [address] MCV (RBC) [Entitic vol] 100.0 fL High 80-94 [facility] Comment on above: Performed By: #### L 503.6620, L100.0100, L501.4020, L500.4050 #### [facility] [address] [place], [address] Monocytes/100 WBC (Bld) 9.2 % Normal 0-10 [facility] Comment on above: Performed By: #### L 503.6620, L100.0100, L501.4020, L500.4050 #### [facility] [address] [place], [address] Neutrophils/100 WBC (Bld) 75.5 % High 47-70 [facility] Comment on above: Performed By: #### L 503.6620, L100.0100, L501.4020, L500.4050 #### [facility] [address] [place], [address] Nucleated RBC (Bld) [#/Vol] 0 10*3/uL Normal 0-5 [facility] Comment on above: Performed By: #### L 503.6620, L100.0100, L501.4020, L500.4050 #### [facility] [address] [place], [address] Platelet mean volume (Bld) [Entitic vol] 9.9 fL Normal 6.2-12.0 [facility] Comment on above: Performed By: #### L 503.6620, L100.0100, L501.4020, L500.4050 #### [facility] [address] [place], [address] Platelets (Bld) [#/Vol] 292 10*3/uL Normal 150-450 [facility] Comment on above: Performed By: #### L 503.6620, L100.0100, L501.4020, L500.4050 #### [facility] [address] [place], [address] RBC (Bld) [#/Vol] 4.36 10*6/uL Low 4.6-6.2 [facility] Comment on above: Performed By: #### L 503.6620, L100.0100, L501.4020, L500.4050 #### [facility] [address] [place], [address] RDW SD 52.6 fl High 35.1-43.9 [facility] Comment on above: Performed By: #### L 503.6620, L100.0100, L501.4020, L500.4050 #### [facility] [address] [place], [address] WBC (Bld) [#/Vol] 9.8 10*3/uL Normal 4.4-11.0 [facility] Comment on above: Performed By: #### L 503.6620, L100.0100, L501.4020, L500.4050 #### [facility] [address] [place], [place], [id number] COVID 19 AG RAPID (RN COLLE T)on 12-26-2022 SARS-CoV-2 (COVID-19) RNA ELSA+probe Ql (Unsp spec) Comments: Order Always:Unless pt has Inhouse Cov19 Criteria+ *Negative results from patients with symptom onset beyond five days should be treated as presumptive and confirmed by a molecular assay if clinically necessary. Negative results should not be used as the sole basis for treatment or for patient management. SARS-CoV-2 Ag Resp Ql IA.rapid *Positive results do not differentiate between SARS-CoV and SARS-CoV-2. If differentiation of the specific SARS virus is desired an additional sample and an additional order is required. SARS-CoV-2 Ag Resp Ql IA.rapid * This test has not been FDA cleared or approved; the test has been authorized by FDA under an Emergency Use Authorization (EAU) for use by laboratories certified under CLIA that meet the requirements to perform moderate, high, or waived complexity tests. SARS-CoV-2 Ag Resp Ql IA.rapid Normal Reference Range: Negative SARS-CoV-2 (COVID 19) Negative RAPID METHOD [employer] COVID19 Ag Card Normal [facility] Comment on above: Performed By: #### M 100.505 #### [facility] [address] [place], [place], [id number] COVID-19 virus antigen assay Ordered By: Dr. Alford on 12-26-2022 SARS-CoV-2 (COVID-19) Ag IA.rapid Ql (Resp) [facility] Chest PA and Lateralon 12-26 Chest PA and Lateral [facility] Imaging Services [address] [place] [address] Chest PA and Lateral MR#: [id number] Acct: [id number] Name: KANDI GOMEZ Rep #: [id number] : 1945 M 77 From: Sean Borjas MD PCP: Dr. Billy Braga, DO Status: REG ER Study: Chest PA and Lateral Date of Exam: 12/26/22 Exam# [id number] Ordering Dr: Sean Alford MD INDICATION: SOB EXAMINATION/TECHNIQUE : X-RAY - XR Chest 2 Views COMPARISON: 02/21/2018 __ FINDINGS: LUNGS: No consolidation, edema or effusion. No pneumothorax. MEDIASTINUM AND CARDIOVASCULAR STRUCTURES: Sternal wires and CABG. Aortic valve prosthesis Mild cardiomegaly and pulmonary vascular enlargement. Central airways are unremarkable. RAD/Chest PA and Lateral IMPRESSION: CHF. Electronically Signed: Sean Borjas MD at 16:18 EST , CC: Dr. Billy Braga, ; Dr. Sean Alford MD Rotating Field Assembler: Signed Normal [facility] Comprehensive Metabolic Prof ilon 12-26-2022 Albumin [Mass/Vol] 3.8 g/dL Normal 3.2-5.0 [facility] Comment on above: Order Comment: 'TROP ' Serial specimen #1, #2 or #3: 1 Performed By: #### L 503.6620, L100.0100, L501.4020, L500.4050 #### [facility] [address] [place], [address] Albumin/Globulin [Mass ratio] 1.1 {ratio} Normal 0.9-2.4 [facility] Comment on above: Order Comment: 'TROP ' Serial specimen #1, #2 or #3: 1 Performed By: #### L 503.6620, L100.0100, L501.4020, L500.4050 #### [facility] [address] [place], [address] ALK P 119 U/L High 45-117 [facility] Comment on above: Order Comment: 'TROP ' Serial specimen #1, #2 or #3: 1 Performed By: #### L 503.6620, L100.0100, L501.4020, L500.4050 #### [facility] [address] [place], [address] ALT [Catalytic activity/Vol] 27 U/L Normal 16-61 [facility] Comment on above: Order Comment: 'TROP ' Serial specimen #1, #2 or #3: 1 Performed By: #### L 503.6620, L100.0100, L501.4020, L500.4050 #### [facility] [address] [place], [address] AST [Catalytic activity/Vol] 19 U/L Normal 15-37 [facility] Comment on above: Order Comment: 'TROP ' Serial specimen #1, #2 or #3: 1 Performed By: #### L 503.6620, L100.0100, L501.4020, L500.4050 #### [facility] [address] [place], [address] Bilirubin [Mass/Vol] 1.80 mg/dL High 0.20-1.00 [facility] Comment on above: Order Comment: 'TROP ' Serial specimen #1, #2 or #3: 1 Result Comment: For patients on eltrombopag therapy, use of Dimension [place] TBIL is not recommended. Performed By: #### L 503.6620, L100.0100, L501.4020, L500.4050 #### [facility] [address] [place], [address] BUN/CRE 16.8 RATIO Normal 10-20 [facility] Comment on above: Order Comment: 'TROP ' Serial specimen #1, #2 or #3: 1 Performed By: #### L 503.6620, L100.0100, L501.4020, L500.4050 #### [facility] [address] [place], [address] CA,Total 9.7 mg/dL Normal 8.5-10.1 [facility] Comment on above: Order Comment: 'TROP ' Serial specimen #1, #2 or #3: 1 Performed By: #### L 503.6620, L100.0100, L501.4020, L500.4050 #### [facility] [address] [place], [address] Chloride [Moles/Vol] 105 mmol/L Normal 98-107 [facility] Comment on above: Order Comment: 'TROP ' Serial specimen #1, #2 or #3: 1 Performed By: #### L 503.6620, L100.0100, L501.4020, L500.4050 #### [facility] [address] [place], [address] CO2 [Moles/Vol] 26.0 mmol/L Normal 21.0-32.0 [facility] Comment on above: Order Comment: 'TROP ' Serial specimen #1, #2 or #3: 1 Performed By: #### L 503.6620, L100.0100, L501.4020, L500.4050 #### [facility] [address] [place], [address] Creatinine [Mass/Vol] 1.84 mg/dL High 0.70-1.30 [facility] Comment on above: Order Comment: 'TROP ' Serial specimen #1, #2 or #3: 1 Result Comment: The validity of the calculated GFR GFRAA in patients over 70 years has not been determined. Clinical correlation is essential. Performed By: #### L 503.6620, L100.0100, L501.4020, L500.4050 #### [facility] [address] [place], [address] ECRCL 36.95 ml/min Normal [facility] Comment on above: Order Comment: 'TROP ' Serial specimen #1, #2 or #3: 1 Performed By: #### L 503.6620, L100.0100, L501.4020, L500.4050 #### [facility] [address] [place], [address] EST GFR - AA 46 mL/min Low >60 [facility] Comment on above: Order Comment: 'TROP ' Serial specimen #1, #2 or #3: 1 Result Comment: Afri can Danish GFR Calc Performed By: #### L 503.6620, L100.0100, L501.4020, L500.4050 #### [facility] [address] [place], [address] GAP 9 Normal 5-15 [facility] Comment on above: Order Comment: 'TROP ' Serial specimen #1, #2 or #3: 1 Performed By: #### L 503.6620, L100.0100, L501.4020, L500.4050 #### [facility] [address] [place], [address] GFR/1.73 sq M.predicted among non-blacks MDRD (S/P/Bld) [Vol rate/Area] 38 mL/min/{1.73_m2} Low >60 [facility] Comment on above: Order Comment: 'TROP ' Serial specimen #1, #2 or #3: 1 Result Comment: Non- GFR Calc Performed By: #### L 503.6620, L100.0100, L501.4020, L500.4050 #### [facility] [address] [place], [address] Globulin (S) [Mass/Vol] 3.4 g/dL Normal 2.2-4.2 [facility] Comment on above: Order Comment: 'TROP ' Serial specimen #1, #2 or #3: 1 Performed By: #### L 503.6620, L100.0100, L501.4020, L500.4050 #### [facility] [address] [place], [address] Glucose [Mass/Vol] 157 mg/dL High 74-106 [facility] Comment on above: Order Comment: 'TROP ' Serial specimen #1, #2 or #3: 1 Result Comment: Fast ing Glucose result greater than or equal to 126 mg/dL suggests DIABETES MELLITUS per A.D.A. criteria. Performed By: #### L 503.6620, L100.0100, L501.4020, L500.4050 #### [facility] [address] [place], [address] Potassium [Moles/Vol] 4.6 mmol/L Normal 3.5-5.1 [facility] Comment on above: Order Comment: 'TROP ' Serial specimen #1, #2 or #3: 1 Performed By: #### L 503.6620, L100.0100, L501.4020, L500.4050 #### [facility] [address] [place], [address] Sodium [Moles/Vol] 140 mmol/L Normal 136-145 [facility] Comment on above: Order Comment: 'TROP ' Serial specimen #1, #2 or #3: 1 Performed By: #### L 503.6620, L100.0100, L501.4020, L500.4050 #### [facility] [address] [place], [address] T PROT 7.2 g/dL Normal 6.4-8.2 [facility] Comment on above: Order Comment: 'TROP ' Serial specimen #1, #2 or #3: 1 Performed By: #### L 503.6620, L100.0100, L501.4020, L500.4050 #### [facility] [address] [place], [address] Urea nitrogen [Mass/Vol] 31 mg/dL High 7-18 [facility] Comment on above: Order Comment: 'TROP ' Serial specimen #1, #2 or #3: 1 Performed By: #### L 503.6620, L100.0100, L501.4020, L500.4050 #### [facility] [address] [place], [address] Determination of erythrocyte mean corpuscular volume (MCV)Ordered By: Dr. Alford on 12-26-2022 MCV (RBC) [Entitic vol] 100.0 fL 80-94 [facility] Emergency Department Summary on 12-26-2022 Emergency Department Summary [facility] Medical Records Department [address] [place] [address] Emergency Department Summary 12/26/22 MR#: [id number] Acct: [id number] Name: KANDI GOMEZ Rep #: [id number] : 1945 77 From: Sean Alford MD PCP: Dr. Billy Braga, DO Status:REG ER Location: ED HPI History of Present Illness Chief Complaint: Shortness of Breath Narrative Narrative: Patient presents with exertional dyspnea for about a month. He tells me he continues to work, sometimes at work he gets short of breath after walking a certain distance also when he walks his dog he gets short of breath after certain distance. He has no cough or congestion. He has lower extremity edema, he thinks is about the same. He has no orthopnea. He does not notice any pallor, normal stools. He is denying chest pain. [facility] Medical History (Updated 12/26/22 @ 17:[address] Sena Alford MD) Coronary atherosclerosis due to severely calcified coronary lesion Hernia Tonsil and adenoid disease, chronic Home Medications aspirin 81 mg tablet,delayed release (Aspir-Low) 81 mg PO DAILY ANTIPLATELET 02/21/18 [History Last Taken 02/21/18 81 MG] docusate sodium 100 mg capsule (DOK) 100 mg PO BID PRN Constipation 02/21/18 [History Last Taken 02/21/18 100 MG] metformin 500 mg tablet 500 mg PO BIDCM DIABETES 02/21/18 [History Last Taken 02/21/18 500 MG] metoprolol tartrate 25 mg tablet 25 mg PO BID BLOOD PRESSURE 02/21/18 [History Last Taken 02/21/18 25 MG] simvastatin 20 mg tablet 20 mg PO QHS HYPERLIPIDEMIA 02/21/18 [History Last Taken 02/21/18 20 MG] cholecalciferol (vitamin D3) 50 mcg (2,000 unit) capsule (Vitamin D3) 2,000 unit PO DAILY 03/26/18 [History Last Taken Unknown] levothyroxine 25 mcg tablet 25 mcg PO DAILY 03/26/18 [History Last Taken Unknown] diclofenac sodium 1 % topical gel (Voltaren Arthritis Pain) 4 g topical TID #100 grams 03/01/22 [Rx Last Taken Unknown] furosemide 40 mg tablet (Lasix) 40 mg PO DAILY #14 tabs 12/26/22 [Rx Last Taken Unknown] Allergy/AdvReac Type Severity Reaction Status Date / Time Penicillins Allergy Other Verified 12/26/22 15:24 Family History (Updated 03/26/18 @ 10:44 by Mendoza Shaffer, RADIATION / CHEMISTRY TECHNICIAN, MEDICAL EDUCATION MANAGER, BS) Mother Cancer Father Heart failure Surgical History (Updated 12/26/22 @ 17:[address] Sean Alford MD) History of tonsillectomy and adenoidectomy S/P AVR (aortic valve replacement) S/P CABG x 1 Social History Smoking Status: Never smoker ROS ROS ED ROS Narrative Past medical history: Reviewed his recent, includes hypothyroidism, hypertension, hypercholesterolemia and diabetes Medications: Reviewed Social history: Noncontributory Review of systems: All systems negative except as indicated General: No fever Eyes: No visual changes ENT: No upper airway congestion, normal voice Neck: No neck pain Cardiovascular: No chest pain Respiratory: Exertional dyspnea as in HPI Gastrointestinal: No abdominal pain, nausea vomiting or diarrhea Genitourinary: No dysuria Musculoskeletal: Denies myalgias no difficulty with ambulation Skin: No rash Neurological: No memory loss, confusion or any focal weakness Psych: No recent behavioral changes Hematologic: No easy bleeding or easy bruising EXAM Physical Exam Narrative Exam Narrative: Physical exam General: Well nourished, Well developed, No Acute Distress Head: Normocephalic, Atraumatic Eyes: Conjunctiva not pale ENT: Moist mucous membranes Neck: Supple, Nontender, No lymphadenopathy Cardiovascular: Regular rate, Regular rhythm Respiratory: No distress, coarse bilateral breath sounds but he has no wheezing, no rhonchi. Abdomen: Soft, Nontender, Nondistended Back: Nontender, Normal Inspection. Negative for: CVA tenderness Extremities: Nontender, No edema Skin: Normal color, No rash Neurological: Alert, Normal Strength, Normal Sensation Psychological: Normal affect Const Vital Signs: 12/26/22 15:22 12/26/22 15:35 12/26/22 15:24 Temperature 98.1 F 98.2 F Temperature Source Temporal Temporal Pulse Rate 60 63 Respiratory Rate 15 19 H Respiratory Effort Short of Breath Respiratory Depth Normal Respiratory Pattern Normal Blood Pressure 150/74 H 114/63 Blood Pressure Mean 99 80 Pulse Ox 96 92 Oxygen Delivery Method Room Air Room Air 12/26/22 16:24 12/26/22 17:00 Temperature 98.1 F 98.0 F Temperature Source Temporal Temporal Pulse Rate 65 68 Respiratory Rate 18 16 Respiratory Effort Respiratory Depth Respiratory Pattern Blood Pressure 112/65 116/67 Blood Pressure Mean 80 83 Pulse Ox 93 94 Oxygen Delivery Method Room Air Room Air MDM MDM Lab Data Labs: Laboratory Results - last 24 hr 12/26/22 12/26/22 12/26/22 15:33 15:33 15:33 WBC 9.8 RBC 4.36 L (more content not included)... Normal [facility] Hematocrit Auto (Bld) [Volum e fraction]Ordered By: Dr. Alford on 12-26-2022 Hematocrit (Bld) [Volume fraction] 43.6 % 40-54 [facility] L501.4020on 12-26-2022 TROPONIN-I HS 8 pg/mL Normal 3.0-78.0 [facility] Comment on above: Order Comment: 'TROP ' Serial specimen #1, #2 or #3: 1 Result Comment: Plea se Note: New Test Units and Gender Specific Reference Ranges. For more information see Policy Stat Procedure [place] High Sensitivity Troponin (TNIH) and attachments. Performed By: #### L 503.6620, L100.0100, L501.4020, L500.4050 #### [facility] Laboratory [address] [facility] ([facility] [place], [address] Laboratory - Chemistry and C hemistry - challengeOrdered By: Dr. Alford on 12-26-2022 ALP [Catalytic activity/Vol] 119 U/L 45-117 [facility] ALT [Catalytic activity/Vol] 27 U/L 16-61 [facility] CO2 [Moles/Vol] 26.0 mmol/L 21.0-32.0 [facility] Globulin (S) [Mass/Vol] 3.4 g/dL 2.2-4.2 [facility] Natriuretic peptide B (Bld) [Mass/Vol] 653.8 pg/mL 0-100 [facility] Urea nitrogen/Creatinine [Mass ratio] 16.8 mg/mg 10-20 [facility] Laboratory - Hematology and Cell countsOrdered By: Dr. Alford on 12-26-2022 Erythrocyte distribution width (RBC) [Entitic vol] 52.6 fL 35.1-43.9 [facility] Erythrocyte distribution width (RBC) [Ratio] 14.5 % 11.6-14.6 [facility] Immature granulocytes/100 WBC (Bld) 0.600 % 0.0-0.9 [facility] Comment on above: IG% - Immature Granu locytes (promyelocytes, myelocytes and metamyelocytes) > 1% indicates that a LEFT SHIFT is Present. MCH (RBC) [Entitic mass] 30.7 pg 27.0-32.0 [facility] Nucleated RBC/100 WBC (Bld) [Ratio] 0 % 0-5 [facility] MCHC Auto (RBC) [Mass/Vol]Or dered By: Dr. Alford on 12-26-2022 MCHC (RBC) [Mass/Vol] 30.7 g/dL 32-36 [facility] No Panel InformationOrdered By: Dr. Alford on 12-26-2022 Estimated Creatinine Clearance Calc 36.95 ml/min [facility] Estimated GFR (MDRD) Amer 46 mL/min >60 [facility] Comment on above: GFR Calc Estimated GFR (MDRD) Non-Af Amer 38 mL/min >60 [facility] Comment on above: Non- GFR Calc Troponin I High Sensitivity 8 pg/mL 3.0-78.0 [facility] Comment on above: Please Note: New Carmen t Units and Gender Specific Reference Ranges. For more information see Policy Stat Procedure [place] High Sensitivity Troponin (TNIH) and attachments. Platelets bldOrdered By: Dr. Alford on 12-26-2022 Platelets (Bld) [#/Vol] 292 10*3/uL 150-450 [facility] Serum or plasma albumin sheldon urement (mass/volume)Ordered By: Dr. Alford on 12-26-2022 Albumin [Mass/Vol] 3.8 g/dL 3.2-5.0 [facility] Serum or plasma albumin/glob ulin mass ratioOrdered By: Dr. Alford on 12-26-2022 Albumin/Globulin [Mass ratio] 1.1 {ratio} 0.9-2.4 [facility] Serum or plasma calcium sheldon urement (mass/volume)Ordered By: Dr. Alford on 12-26-2022 Calcium [Mass/Vol] 9.7 mg/dL 8.5-10.1 [facility] Serum or plasma creatinine m easurement (mass/volume)Ordered By: Dr. Alford on 12-26-2022 Creatinine [Mass/Vol] 1.84 mg/dL 0.70-1.30 [facility] Comment on above: The validity of the calculated GFR & GFRAA in patients over 70 years has not been determined. Clinical correlation is essential. Serum or plasma urea nitroge n measurement (mass/volume)Ordered By: Dr. Alford on 12-26-2022 Urea nitrogen [Mass/Vol] 31 mg/dL 7-18 [facility] Thin prep Papanicolaou smear with manual screeningOrdered By: Dr. Alford on 12-26-2022 Thin prep Papanicolaou smear with manual screening 19 U/L 15-37 [facility] Thin prep Papanicolaou smear with manual screening 9 5-15 [facility] Knee 4 or More Viewson 03-01 Knee 4 or More Views [facility] [address] [place] [address] Knee 4 or More Views MR#: [id number] Acct: [id number] Name: KANDI GOMEZ Rep #: [id number] : 1945 M 76 From: Eleazar Tinoco MD PCP: Dr. Billy Braga, DO Status: DEP AMB Study: Knee 4 or More Views Date of Exam: 03/01/22 Exam# [id number] Ordering Dr: Adam Ribeiro PA STUDY: X-RAY - RIGHT KNEE REASON FOR EXAM: Male, 76 years old. Knee pain. TECHNIQUE: 4 view(s) of the knee. COMPARISON: None. FINDINGS: Osteopenia. Moderate medial compartmental arthrosis with small osteophytes. Mild arthrosis of the lateral compartment with small osteophytes. Lateral tilt and subluxation of the patella with mild arthrosis of the patellofemoral compartment. Vascular calcification. RAD/Knee 4 or More Views IMPRESSION: Osteopenia with tricompartmental arthrosis. No acute abnormality, erosive changes or chondrocalcinosis. Electronically Signed: Eleazar Tinoco MD at 11:38 EDT , CC: TISHA Ribeiro; Dr. Billy Braga DO Rotating Field Assembler: Signed Normal [facility] Orthopedic Visit Reporton Orthopedic Visit Report [facility] [address] [place] [address] OFFICE VISIT Date of Service: 03/01/22 MR#: [id number] Acct: [id number] Name: KANDI GOMEZ Rep #: [id number] : 1945 Provider: TISHA Ribeiro Age/Sex: 76/M Location: [facility].[place] Status: Signed Intake Vital Signs 03/01/22 11:08 Height 5 ft 11 in Weight: 280 lb BMI 39.0 Intake Visit Reasons: RIGHT KNEE Chief Complaint: right knee Accompanied by: Is patient in pain?: Yes Pain scale (1-10): 6 Allergies Penicillins Allergy (Verified 07/13/19 15:09) Other Medications aspirin [Aspir-Low] 81 mg PO DAILY 02/21/18 [History Confirmed 03/01/22] docusate sodium [Colace] 100 mg PO BID PRN 02/21/18 [History Confirmed 03/01/22] metformin 500 mg PO BIDCM 02/21/18 [History Confirmed 03/01/22] metoprolol tartrate 25 mg PO BID 02/21/18 [History Confirmed 03/01/22] simvastatin 20 mg PO QHS 02/21/18 [History Confirmed 03/01/22] cholecalciferol (vitamin D3) [Vitamin D3] 2,000 unit PO DAILY 03/26/18 [History Confirmed 03/01/22] levothyroxine 25 mcg PO DAILY 03/26/18 [History Confirmed 03/01/22] diclofenac sodium 1 % topical gel 4 g TOPICAL TID #100 g 03/01/22 [Rx Confirmed 03/01/22] PFSH Medical History (Updated 03/01/22 @ 14:30 by Adam GILES, PA) Coronary atherosclerosis due to severely calcified coronary lesion Hernia Tonsil and adenoid disease, chronic Surgical History (Updated 03/26/18 @ 10:43 by Mendoza Shaffer CRT, MEDICAL EDUCATION MANAGER, BS) History of tonsillectomy and adenoidectomy S/P AVR (aortic valve replacement) S/P CABG x 1 Family History (Updated 03/26/18 @ 10:44 by Mendoza Shaffer CRT, KAYCE, BS) Mother Cancer Father Heart failure Social History Smoking Status: Never smoker HPI RIGHT KNEE Details: Parts of this documentation were recorded by a scribe, this documentation accurately reflects the service provided and the decisions made by me, TISHA Camacho 03/01/22 1053. KANDI GOMEZ is a 76 year old M NEW patient here today for right knee pain that he has been having for about 2 months. Denies any injury. He states that the more he walks on the knee the worse the pain gets. He states that he was crawling into bed on night and he heard a pop in his knee which wasnt painful. Denies any painful mechanical knee pain. Denies any surgery or injections of the right knee. He does report that about 10 years ago he had the knee aspirated. He has all medial knee pain. He has good ROM but flexion causes increased pain. He states that the pain is there when he bears weight on the knee. Denies any PT, bracing. He has been taking Aleve for the pain which wasnt very helpful. Denies any topical pain creams. ROS Musc Reports arthralgias, Reports joint swelling, Denies muscle weakness, Denies numbness, Denies radiating pain into limb, Reports stiffness and Denies tingling Neuro No numbness and No tingling Ortho Exam Right Knee Skin/Wound: No erythema, No ecchymosis and No swelling Knee ROM: No ROM-Extension -20 to 0 and No ROM-Flexion 0-140 Examination: Yes Med jt line tenderness, No Lat jt line tenderness, No TTP inf pole patella, Yes Crepitus, No Pain with flexion, No Pain with extention, No TTP Patellar tendon, Yes TTP Pes Anserine and No Illiotibial band tenderness Quad Atrophy: No Stability: NML: Anterior Drawer, NML: Posterior Drawer and NML: Varus 0 and 1+: Valgus 30 Patellar Tilt Normal: No KNEE: Patient has no acute abnormalities on inspection of the right knee. Very minimal swelling and no signs of effusions. Patient does have decrease in both flexion and extension. He has repro ducible tenderness on palpation of the medial joint line. There is evident crepitus noted with range of motion. He also has some gapping noted with valgus stress. Evident tenderness over the Pez anserine bursa region. Other ligamentous structures do appear intact without laxity or discomfort. Patient does have normal sensation to light touch and no calf tenderness today. Coding Level of Care Code Off vis,new,level 3 Diagnoses Right knee pain M25.561 Primary osteoarthritis of right knee M17.11 Assessment and Plan Assessment and Plan (1) Right knee pain: Status: Acute (2) Primary osteoarthritis of right knee: Status: Acute Orders: Orders: Knee 4 or More Views 03/01/22 M25.561 Plan - Adam GILES, PA: Patient presents the office today with right knee pain. Patient states that he started to have pain approximately few weeks ago. There was no inciting or acute injury to the knee. Patient's pains are focused primarily on the medial joint line. He does have some evident crepitus with passive and active range of motion. He states his discomfort is more noted primarily with weightbearing activities and pursing the morning. We discussed anatomy ph (more content not included)... Normal [facility] Vital Signs Date Time Vital Sign Value Performing Clinician Max morelos 12-26-2022 17:42-0500 Body temperature 98 [degF] [facility] 12-26-2022 17:42-0500 Diastolic blood pressure 88 mm[Hg] [facility] 12-26-2022 17:42-0500 Heart rate 67 /min [facility] 12-26-2022 17:42-0500 Respiratory rate 18 /min [facility] 12-26-2022 17:42-0500 SaO2% (BldA) [Mass fraction] 92 % [facility] 12-26-2022 17:42-0500 Systolic blood pressure 123 mm[Hg] [facility] 12-26-2022 15:22-0500 Body height 180.34 cm [facility] 12-26-2022 15:22-0500 Body mass index (BMI) [Ratio] 38.1 kg/m2 [facility] 12-26-2022 15:22-0500 Body weight 124.1 kg [facility] Encounters Encounter Date Encounter Type Care Provider Facility Start: 02-02-2023 [facility] Facility: [facility] Start: 12-26-2022 End: 12-26-2022 Emergency department patient visit [facility] Facility:[facility] Start: 12-26-2022 End: 12-26-2022 Emergency department patient visit [facility]Emergency Department Start: 03-01-2022 End: 03-01-2022 [facility] Facility:[facility] Procedures Date Procedure Procedure Detail Performing Clinician Start: 12-26-2022 Plain chest X-ray History of coronary artery bypass grafting Hx of CABG Viral antigen assay Plan of Treatment Date Care Activity Detail Author Patient Education What Is Heart Failure [facility] Work Phone: Patient referral [facility] Work Phone: Immunizations Immunization Date Immunization Notes Care Provider Julissa camacho 04-21-2019 tetanus toxoid, redu pj diphtheria toxoid, and acellular pertussis vaccine, adsorbed [facility] Payers Date Payer Category Payer Unknown [id number] 2022 Self-pay [id number] 2022 Medicare [id number] Unknown [facility] [id number] [id number] [id number] Unknown [id number] 2.16.8 [id number] Unknown [id number] 2.16.8 [id number] Unknown [id number] 2.16.8 [id number] Social History Date Type Detail Facility Start: 12-26-2022 Tobacco smoking stat [facility] Unknown if ever smoked [facility] Start: 1945 Sex Assigned At Male [facility] Discharge summary 12-26-2022 Note Date & Type Note Facility 12-26-2022 Discharge summary Note Date/Time December 26, 2022 3:41pm [facility] Medical Records Department [address] [place] [address] Emergency Department Summary 12/26/22 MR#: [id number] Acct: [id number] Name: KANDI GOMEZ Rep #:[id number] : 1945 77 From: Sean Alford MD PCP: Dr. Billy Braga, DO Status:REG ER Location: ED HPI History of Present Illness Chief Complaint: Shortness of Breath Narrative Narrative: Patient presents with exertional dyspnea for about a month. He tells me he continues to work, sometimes at work he gets short of breath after walking a certain distance also when he walks his dog he gets short of breath after certain distance. He has no cough or congestion. He has lower extremity edema,he thinks is about the same. He has no orthopnea. He does not notice any pallor, normal stools. He is denying chest pain. [facility] Medical History (Updated 12/26/22 @ 17:[address] Sean Alford MD) Coronary atherosclerosis due to severely calcified coronary lesion Hernia Tonsil and adenoid disease, chronic Home Medications aspirin 81 mg tablet,delayed release (Aspir-Low) 81 mg PO DAILY ANTIPLATELET 02/21/18 [History Last Taken 02/21/18 81 MG] docusate sodium 100 mg capsule (DOK) 100 mg PO BID PRN Constipation 02/21/18 [History Last Taken 02/21/18 100 MG] metformin 500 mg tablet 500 mg PO BIDCM DIABETES 02/21/18 [History Last Taken 02/21/18 500 MG] metoprolol tartrate 25 mg tablet 25 mg PO BID BLOOD PRESSURE 02/21/18 [History Last Taken 02/21/18 25 MG] simvastatin 20 mg tablet 20 mg PO QHS HYPERLIPIDEMIA 02/21/18 [History Last Taken 02/21/18 20 MG] cholecalciferol (vitamin D3) 50 mcg (2,000 unit) capsule (Vitamin D3) 2,000 unitPO DAILY 03/26/18 [History Last Taken Unknown] levothyroxine 25 mcg tablet 25 mcg PO DAILY 03/26/18 [History Last Taken Unknown] diclofenac sodium 1 % topical gel (Voltaren Arthritis Pain) 4 g topical TID #100grams 03/01/22 [Rx Last Taken Unknown] furosemide 40 mg tablet (Lasix) 40 mg PO DAILY #14 tabs 12/26/22 [Rx Last Taken Unknown] Allergy/AdvReac Type Severity Reaction Status Date / Time Penicillins Allergy Other Verified 12/26/22 15:24 Family History (Updated 03/26/18 @ 10:44 by Mendoza Shaffer, RADIATION / CHEMISTRY TECHNICIAN, MEDICAL EDUCATION MANAGER, BS) Mother Cancer Father Heart failure Surgical History (Updated 12/26/22 @ 17:[address] Sean Alford MD) History of tonsillectomy and adenoidectomy S/P AVR (aortic valve replacement) S/P CABG x 1 Social History Smoking Status: Never smoker ROS ROS ED ROS Narrative Past medical history: Reviewed his recent, includes hypothyroidism, hypertension, hypercholesterolemia and diabetes Medications: Reviewed Social history: Noncontributory Review of systems: All systems negative except as indicated General: No fever Eyes: No visual changes ENT: No upper airway congestion, normal voice Neck: No neck pain Cardiovascular: No chest pain Respiratory: Exertional dyspnea as in HPI Gastrointestinal: No abdominal pain, nausea vomiting or diarrhea Genitourinary: No dysuria Musculoskeletal: Denies myalgias no difficulty with ambulation Skin: No rash Neurological: No memory loss, confusion or any focal weakness Psych: No recent behavioral changes Hematologic: No easy bleeding or easy bruising EXAM Physical Exam Narrative Exam Narrative: Physical exam General: Well nourished, Well developed, No Acute Distress Head: Normocephalic, Atraumatic Eyes: Conjunctiva not pale ENT: Moist mucous membranes Neck: Supple, Nontender, No lymphadenopathy Cardiovascular: Regular rate, Regular rhythm Respiratory: No distress, coarse bilateral breath sounds but he has no wheezing,no rhonchi. Abdomen: Soft, Nontender, Nondistended Back: Nontender, Normal Inspection. Negative for: CVA tenderness Extremities: Nontender, No edema Skin: Normal color, No rash Neurological: Alert, Normal Strength, Normal Sensation Psychological: Normal affect Const Vital Signs: 12/26/22 15:22 12/26/22 15:35 12/26/22 15:24 Temperature 98.1 F 98.2 F Temperature Source Temporal Temporal Pulse Rate 60 63 Respiratory Rate 15 19 H Respiratory Effort Short of Breath Respiratory Depth Normal Respiratory Pattern Normal Blood Pressure 150/74 H 114/63 Blood Pressure Mean 99 80 Pulse Ox 96 92 Oxygen Delivery Method Room Air Room Air 12/26/22 16:24 12/26/22 17:00 Temperature 98.1 F 98.0 F Temperature Source Temporal Temporal Pulse Rate 65 68 Respiratory Rate 18 16 Respiratory Effort Respiratory Depth Respiratory Pattern Blood Pressure 112/65 116/67 Blood Pressure Mean 80 83 Pulse Ox 93 94 Oxygen Delivery Method Room Air Room Air MDM MDM Lab Data Labs: Laboratory Results - last 24 hr 12/26/22 12/26/22 12/26/22 15:33 15:33 15:33 WBC 9.8 RBC 4.36 L Hgb 13.4 Hct 43.6 MCV 100.0 H MCH 30.7 MCHC 30.7 L RDW Std Deviation 52.6 H RDW Coeff of Mukul 14.5 Plt Count 292 MPV 9.9 Immature Gran % (Auto) 0.600 Neut % (Auto) 75.5 H Lymph % (Auto) 12.5 L [place] % (Auto) 9.2 Eos % (Auto) 1.6 Baso % (Auto) 0.6 Absolute Neuts (auto) 7.4 Absolute Lymphs (auto) 1.22 Nucleated RBC % 0 Sodium 140 Potassium 4.6 Chloride 105 Carbon Dioxide 26.0 Anion Gap 9 BUN 31 H Creatinine 1.84 H Estim Creat Clear Calc 36.95 Est GFR (MDRD) Af Amer 46 L Est GFR (MDRD) Non-Af 38 L BUN/Creatinine Ratio 16.8 Glucose 157 H Calcium 9.7 Total Bilirubin 1.80 H AST 19 ALT 27 Alkaline Phosphatase 119 H Troponin I High Sens 8 B-Natriuretic Peptide 653.8 H Total Protein 7.2 Albumin 3.8 Globulin 3.4 Albumin/Globulin Ratio 1.1 Radiography Diagnostic Testing: Clinical Impression(s) from Imaging Studies Chest X-Ray 12/26/22 16:00 IMPRESSION: CHF. Electronically Signed: Sean Borjas MD at 16:18 EST , EKG Initial EKG: Comments: Sinus rhythm with a rate of 69. Normal AK and QTc intervals. No ischemic changes. Interpreted by emergency doctor Treatment and Re-Evaluation Narrative: A. Problems addressed Patient presents with exertional dyspnea, he is found to have some pulmonary edema, elevated natruretic peptide and lower extremity edema. This is consistent with CHF. I am not worried about a PE, he has no pleuritic componentto his diagnosis points towards CHF. He has no ischemic changes on his EKG and not worried about acute coronary syndrome. He does have a history of mitral valve replacement and bypass x1. This was 5 years ago at the [facility] he has not had an echocardiogram since then therefore he likely will need it. B. Amount and/or complexity of the data 1. CBC CMP troponin natruretic peptide read by me 2. Independent interpretation of test Telemetry: Sinus rhythm with a rate in the 60s. No ectopy to monitor for any 3. I discussed the patient with Dr. Moncada who is okay with the patient following up. C. Risk of complications and/or morbidity Differential diagnosis: See above I have thought about admitting the patient, however because the patient's pulse ox is relatively normal, we have a good outpatient plan to follow-up with cardiology and get an outpatient echocardiogram and regarding start the patient on Lasix I believe it is safe to discharge. Discharge Plan Triage Chief Complaint: Shortness of Breath ED Provider: Sean Alford Dx/Rx/DC Orders Clinical Impression: Acute dyspnea, CHF (congestive heart failure), Hx of CABG Instructions: What Is Heart Failure Prescriptions: New furosemide [Lasix] 40 mg tablet 40 mg PO DAILY Qty: 14 0RF No Action diclofenac sodium [Voltaren Arthritis Pain] 1 % gel 4 g topical TID Qty: 100 0RF Rx Instructions: apply to single knee metformin 500 MG tablet 500 mg PO BIDCM aspirin [Aspir-Low] 81 MG tablet,delayed release (DR/EC) 81 mg PO DAILY simvastatin 20 MG tablet 20 mg PO QHS docusate sodium [DOK] 100 MG capsule 100 mg PO BID PRN (Reason: Constipation) metoprolol tartrate 25 MG tablet 25 mg PO BID levothyroxine 25 MCG tablet 25 mcg PO DAILY cholecalciferol (vitamin D3) [Vitamin D3] 2,000 UNIT capsule 2,000 unit PO DAILY Primary Care Provider: Billy Braga Referrals: Billy Braga DO [Primary Care Provider] - Sean Moncada MD [Med Staff - Active Staff] - 3-5 Days Disposition Disposition: Home, Self Care What to do if you have Problems For any increased pain, shortness of breath, bleeding, nausea or vomiting, chestpain, or any unexpected problems, contact your Primary Care Provider. Call [facility] ([phone]) or report to the closest Emergency Room. Call 911 if necessary. 12/26/22 1723 <Electronically signed by Sean Alford MD> Cosigner Signature (if applicable): CC: Dr. Billy Braga DO ~ Signed [facility] Work Phone: Evaluation note Note Date & Type Note Facility Evaluation note No assessment information availa ble [facility] Work Phone: Chief Complaint and Reason for Visit Chief Complaint SOB Family History No Family History Records Found Relationship Condition Age at Onset Recorded Date/T nathaly mother Malignant neoplasm Unknown father Heart failure Unknown Advance Directives No Advanced Directives Records Found Advance Directive Response Recorded Date/ Time Living Will No December 26 023 3:35pm Power of Meat Boner No December 26, 2022 3:35pm Summary Purpose Additional Source Comments Care Teams (unrecognized sec tion and content) Team Status: Active Member Role Status Dates Dr. Billy Braga DO Family Provider Active Dr. Billy Braga DO Primary Care Provider Active Team Status: Inactive Member Role Status Dates Dr. Billy Braga DO Primary Care Provider Active Dr. Sean Alford MD Emergency Provider Active Goals (unrecognized section and content) Goals may be documented in a n alternate section (unrecognized sect ion and content) No Status Records Found INFORMATION SOURCE (unrecogn ized section and content) DATE CREATED AUTHOR 02/01/2023 [facility] FOR RECORDS PERTAINING TO PATIENTS WHO ARE OR HAVE BEEN ENROLLED IN A CHEMICAL DEPENDENCY/SUBSTANCEABUSE PROGRAM, SOME INFORMATION MAY BE OMITTED. This clinical summary was aggregated from multiple sources. Caution should be exercised in using it in the provision of clinical care. This summary normalizes information from multiple sources, and as a consequence, information in this document may materially change the coding, format and clinical context of patient data. In addition, data may be omitted in some cases. CLINICAL DECISIONS SHOULD BE BASED ON THE PRIMARY CLINICAL RECORDS. [facility] [email or web address] [facility]. provides no warranty or guarantee of the accuracy or completeness of information in this document.
[2025-07-03 08:03] VITALS: BP 151/69; PULSE 67; RESP 16; TEMP 36.6; O2SAT 97
== END 2025-07-03 08:15 | disposition home or self-care (01) ==
PROVIDERS: Emergency Provider Emergency Medicine; PCP Family Medicine; Visit Provider Emergency Medicine
DX: S09.90XA Unspecified injury of head, initial encounter (principal); S61.411A Laceration without foreign body of right hand, initial encounter; W01.0XXA Fall on same level from slipping, tripping and stumbling without subsequent striking against object, initial encounter; Y92.009 Unspecified place in unspecified non-institutional (private) residence as the place of occurrence of the external cause; Y93.89 Activity, other specified; Y99.8 Other external cause status
CPT/HCPCS: 12002; 70450; 72125; 73090; 73110; 73130; 90715; 99283

== ENCOUNTER 2025-07-04 01:14 | Observation (INO) | payer OTHER, SELFPAY ==
[2025-07-04] VITALS (9 sets, daily range): BP systolic 108–142; BP diastolic 54–72; PULSE 58–73; RESP 14–20; TEMP 36.4–36.8; O2SAT 90–97; BMI 39.2; BMI 38.5
--- NOTE | 2025-07-04 01:30 | EX.ED.GENINJ ---
HPI History of Present Illness Chief Complaint: Fall [facility] Medical History Tonsil and adenoid disease, chronic Hernia Coronary atherosclerosis due to severely calcified coronary lesion Home Medications ?Medication ?Instructions ?Recorded ?Last Taken ?Type metformin 500 mg tablet 500 mg PO BIDCM DIABETES 02/21/18 02/21/18 History 500 MG metoprolol tartrate 25 mg tablet 25 mg PO BID BLOOD PRESSURE 02/21/18 02/21/18 History 25 MG cholecalciferol (vitamin D3) 50 2,000 unit PO DAILY 03/26/18 Unknown History mcg (2,000 unit) capsule (Vitamin D3) apixaban 5 mg tablet (Eliquis) 5 mg PO BID 07/03/25 Unknown History aspirin 81 mg capsule 81 mg PO DAILY 07/03/25 Unknown History atorvastatin 10 mg tablet (Lipitor) 10 mg PO QHS 07/03/25 Unknown History furosemide 40 mg tablet (Lasix) 20 mg PO DAILY 07/03/25 Unknown History levothyroxine 75 mcg tablet 75 mcg PO DAILY 07/03/25 Unknown History (Synthroid) lisinopril 10 mg tablet 10 mg PO DAILY 07/03/25 Unknown History tamsulosin 0.4 mg capsule 0.4 mg PO DAILY 07/03/25 Unknown History Allergy/AdvReac Type Severity Reaction Status Date / Time Penicillins Allergy Other Verified 07/03/25 06:45 Family History Mother Cancer Father Heart failure Surgical History History of tonsillectomy and adenoidectomy S/P AVR (aortic valve replacement) S/P CABG x 1 Social History household members: spouse Smoking Status: Never smoker alcohol intake: never substance use type: does not use EXAM Physical Exam Const Vital Signs: 07/04/25 01:17 07/04/25 01:20 07/04/25 02:55 Temperature 97.7 F L Temperature Source Oral Pulse Rate 73 68 Respiratory Rate 20 H 20 H Respiratory Effort Normal Non-Labored Respiratory Depth Normal Respiratory Pattern Normal Blood Pressure 142/72 H 114/65 Blood Pressure Mean 95 81 Pulse Ox 92 90 Oxygen Delivery Method Room Air Room Air Room Air [facility] Narrative Medical decision making narrative: HISTORY OF PRESENT ILLNESS: Chief complaint: Fall, left shoulder pain 80-year-old male history of CAD, aortic valve replacement on Eliquis presents with fall. Notes he tripped going up 2 stairs. Denies head trauma or loss of consciousness. Denies syncope prior to fall. REVIEW OF SYSTEMS: Pertinent positives: Fall, left arm pain Pertinent negatives: As per HPI PHYSICAL EXAM: Nursing triage notes reviewed, Vital signs reviewed Primary Survey Airway: Intact Breathing: Bilateral breath sounds Circulation: Palpable bilateral femorals, Palpable bilateral radial, Palpable bilateral DP and Palpable bilateral PT Disability / Spine precautions GCS Score: Eye Openin Verbal Response: 5 Motor Response: 6 Secondary Survey Constitutional: Please see MDM Head: Atraumatic, Midface stable, NO jaw malocclusion, No Cephalohematoma, and No Lacerations noted Eye: Pupils equal round and reactive to light, Extraocular muscles intact and No periorbital ecchymosis or stepoff, no evidence of entrapment ENT: Oropharynx clear, no lacerations, no hemotympanum, no raccoon eyes or mcclain sign Cervical spine / Neck: No cervical spine bony tenderness, crepitance, or stepoff deformity Trachea midline Lungs: Clear to auscultation, No asymmetric rise and No crepitus, no flail chest Cardiac: Regular rate and rhythm and No murmurs Abdomen: Soft, Nontender and No rebound Pelvis: Pelvis stable to compression : No evidence of genital injury Back: No midline bony tenderness to thoracic/lumbar/sacral spines Neuro: At baseline, has movement in all 4 extremities, appears to have sensation all 4 extremities, 2+ patellar reflexes bilaterally. Extremities: Obvious deformity to left upper extremity, TTP over proximal humerus. Left upper extremity otherwise warm and well-perfused. Psych: Normal affect Nursing triage notes reviewed, Vital signs reviewed MEDICAL DECISION MAKING: Chief Complaint: please see [facility] External records reviewed: Reviewed prior imaging studies Factors affecting care: Social determinants of health: none History obtained from others: EMS Consults: Internal Medicine (Dr. Tillman), orthopedic surgery (Dr. Rivera) [facility] Narrative: The patient was initially hemodynamically stable, afebrile and nontoxic-appearing. Primary secondary trauma surveys concerning for left arm trauma. Given patient's history of Eliquis I obtained imaging of the head and neck as well. I considered the following differential diagnosis: ICH, cervical spine injury, left arm injury I obtained broad lab and imaging work to further determine if the patient was suffering from a life-threatening etiology. Gave morphine for pain control ALL IMAGES (IF OBTAINED) HAVE BEEN PERSONALLY REVIEWED AND INTERPRETED BY MYSELF. X-ray of the left humerus/left shoulder was read reviewed personally myself showed evidence of a proximal humerus fracture. CT scan of the head and neck were negative for acute traumatic injury Labs with mild anemia otherwise no leukocytosis, kidney dysfunction, liver abnormalities. Discussed the case with orthopedic surgery on-call recommended no acute surgical intervention for humerus fracture. Also discussed with hospitalist given the patient's advanced age, multiple falls and inability use both arms he would need hospitalization for pain control, PT OT and possible placement. The patient and/or family, caregivers express understanding. The patient and/or family, caregivers agrees with the plan. Shared decision making: I will have a discussion with the patient and or visitors regarding risk/benefits of further testing or admission. They will be made aware of of the risk/benefits inherent in this decision they will be given the opportunity to voice understanding. Total critical care time today provided was at least 0 minutes. This excludes separately billable procedures. Critical care time (if documented) is secondary to the patient having high probability of clinically significant/life threatening deterioration in the patient's condition which required my urgent intervention. Impression: 1. Fall 2. Left humerus fracture 3. History of chronic anticoagulation Dispo: Ad[facility] to [facility] This note was generated with [employer] dictation software. It may contain incorrect words, spelling, and punctuation that were not noted in review of the chart prior to signing. Lab Data Labs: Laboratory Results - last 24 hr 07/04/25 02:00 WBC 10.1 RBC 3.78 L Hgb 11.9 L Hct 37.2 L MCV 98.4 H MCH 31.5 MCHC 32.0 RDW Std Deviation 49.6 H RDW Coeff of Mukul 13.6 Plt Count 269 MPV 9.3 Immature Gran % (Auto) 0.900 Neut % (Auto) 79.6 H Lymph % (Auto) 6.9 L Hyde % (Auto) 9.9 Eos % (Auto) 2.2 Baso % (Auto) 0.5 Absolute Neuts (auto) 8.1 H Absolute Lymphs (auto) 0.70 L Nucleated RBC % 0 Sodium 140 Potassium 4.3 Chloride 106 Carbon Dioxide 23.6 Anion Gap 11 BUN 25 H Creatinine 1.17 Estim Creat Clear Calc 70.79 Est GFR (MDRD) Non-Af 64 BUN/Creatinine Ratio 21.7 H Glucose 195 H Calcium 9.1 Total Bilirubin 1.47 H AST 24 ALT 19 Alkaline Phosphatase 129 Total Protein 6.5 Albumin 3.8 Globulin 2.7 Albumin/Globulin Ratio 1.4 Radiography Diagnostic Testing: Clinical Impression(s) from Imaging Studies Brain CT 07/04/25 01:53 IMPRESSION: No intracerebral or extra axial hemorrhage. No acute cerebrovascular insult. If clinical symptoms persist, further evaluation with MRI may be considered as clinically warranted. Bilateral cerebral microvascular ischemic changes with mild brain involutional changes. stable Reading Location: [place] [address] 07/04/25 01:53 IMPRESSION: No newly developed vertebral fractures, structural collapse or dislocation. Stable study findings as detailed. Reading Location: [place] [address] Discharge Plan Triage Chief Complaint: Fall ED Provider: Randy Gibson Dx/Rx/DC Orders Prescriptions: No Action metformin 500 MG tablet 500 mg PO BIDCM metoprolol tartrate 25 MG tablet 25 mg PO BID cholecalciferol (vitamin D3) [Vitamin D3] 2,000 UNIT capsule 2,000 unit PO DAILY aspirin 81 mg capsule 81 mg PO DAILY levothyroxine [Synthroid] 75 mcg tablet 75 mcg PO DAILY atorvastatin [Lipitor] 10 mg tablet 10 mg PO QHS lisinopril 10 mg tablet 10 mg PO DAILY tamsulosin 0.4 mg capsule 0.4 mg PO DAILY furosemide [Lasix] 40 mg tablet 20 mg PO DAILY Eliquis 5 mg tablet 5 mg PO BID Primary Care Provider: Billy Braga Referrals: Billy Braga DO [Primary Care Provider] - Print Language: Croatian
--- NOTE | 2025-07-04 01:53 | CT_ITS ---
PROCEDURE: BRAIN/HEAD WITHOUT CONTRAST 07/04/2025 REASON FOR EXAM: FALL, HEAD TRAUMA TECHNIQUE: Procedure Code: CTBR Modality: CT Procedure: BRAIN/HEAD WITHOUT CONTRAST Coronal and Sagittal reconstruction series were provided. One or more dose reduction techniques were used (e.g., Automated exposure control, adjustment of the mA and/or kV according to patient size, use of iterative reconstruction technique. RADIATION DOSE SUMMARY: CTDlvol: 28.14 mGy DLP: 599.21 mGycm COMPARISON: 07-03-2025 FINDINGS: Accentuated bilateral cerebral periventricular deep white matter hypodensities suggesting hypoperfusion with scattered hypodense foci suggestive of microvascular ischemic changes. Salvador-white matter differentiation is maintained. Right cerebellar small area of encephalomalacia. Otherwise, normal CT appearance of the posterior fossa structures. No intracerebral or extra axial hemorrhage. No definite calvarial fractures. Unremarkable ventricular system. Prominent cortical sulci and extra-axial CSF spaces No midline shifts or deformity. The osseous structures in the skull base are unremarkable. The scanned paranasal sinuses show lamellar and focal mucosal thickening of the maxillary antra and ethmoidal air cells. CT/Brain/Head without Contrast IMPRESSION: No intracerebral or extra axial hemorrhage. No acute cerebrovascular insult. If clinical symptoms persist, further evaluati on with MRI may be considered as clinically warranted. Bilateral cerebral microvascular ischemic changes with mild brain involutional changes. stable Reading Location: [place] [id number]
--- NOTE | 2025-07-04 01:53 | CT_ITS ---
PROCEDURE: SPINE CERVICAL WITHOUT CONTRAS 07/04/2025 REASON FOR EXAM: FALL TECHNIQUE: Procedure Code: CTSPC Modality: CT Procedure: SPINE CERVICAL WITHOUT CONTRAS Coronal and Sagittal reconstruction series were provided. One or more dose reduction techniques were used (e.g., Automated exposure control, adjustment of the mA and/or kV according to patient size, use of iterative reconstruction technique. RADIATION DOSE SUMMARY: CTDlvol: 61.79 mGy DLP: 1540 mGycm COMPARISON: 07-03-2025 FINDINGS: Straightened cervical lordosis denoting myospasm. 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 The examined vertebral bodies show no structural collapse or posterior neural elements fractures. Intact atlanto-axial interval. Degenerative changes of the atlanto-odontoid articulation with related capsular calcifications. Cervical spondylodegenerative changes evident by marginal osteophytic lipping and multilevel subchondral sclerosis of the examined vertebral end plates with multilevel disc spaces narrowing with vacuum phenomenon. Multilevel degenerative unco-vertebral arthropathy with osteophytes formation seen encroaching upon the corresponding neural exit foramina. Multilevel degenerative facet arthropathy, more on the left side. Multilevel diffuse disc bulges with posterior osteophytes and annular calcifications indenting the theca and encroaching upon the related neural exit foramina. No developmental spinal canal stenosis. No paraspinal masses. Vascular atheromatous calcifications CT/Spine Cervical without Contras IMPRESSION: No newly developed vertebral fractures, structural collapse or dislocation. Stable study findings as detailed. Reading [facility]
[2025-07-04 02:06] LABS: Hematocrit 37.2 % (40-54); Hemoglobin 11.9 g/dL (13.0-16.5); Immature Granulocytes Count 0.090 X10^3/uL (0.0-0.0); Mean Corp Hgb Conc 32.0 g/dL (32-36); Mean Corpuscular Volume 98.4 fL (80-94); Mean Platelet Vol. 9.3 fl (6.2-12.0); NRBC Flagged by Analyzer 0 % (0-5); Platelet Count 269 K/mm3 (150-450); RBC Distribution Width CV 13.6 % (11.6-14.6); RBC Distribution Width SD 49.6 fl (35.1-43.9); Red Blood Count 3.78 M/mm3 (4.6-6.2); White Blood Count 10.1 K/mm3 (4.4-11.0)
[2025-07-04 02:26] LABS: AST(SGOT) 24 U/L (<=37); Alanine Aminotransfer ALT/SGPT 19 U/L (<=46); Albumin, Serum 3.8 g/dL (3.4-4.8); Alkaline Phosphatase 129 U/L (40-129); Anion Gap 11 (5-15); BUN 25 mg/dL (4-19); BUN/Creat Ratio 21.7 RATIO (10-20); Calcium,Total 9.1 mg/dL (7.6-11.0); Carbon Dioxide 23.6 mmol/L (21.0-32.0); Chloride 106 mmol/L (98-108); Estimated Creatinine Clearance 70.79 ml/min (50-250); Globulin 2.7 g/dL (2.2-4.2); Glucose 195 mg/dL (70-99); Potassium 4.3 mmol/L (3.3-5.1)
--- NOTE | 2025-07-04 02:30 | RAD_ITS ---
PROCEDURE: HUMERUS MIN 2 VIEWS 07/04/2025 REASON FOR EXAM: PAIN AFTER FALL TECHNIQUE: Procedure Code: RADHUM Modality: DX Procedure: HUMERUS MIN 2 VIEWS Laterality: LEFT. COMPARISON: NONE. FINDINGS: Acute comminuted displaced fractures of the humeral surgical neck. Overlying soft tissue edema and swelling. No dislocation is seen. RAD/Humerus min 2 Views IMPRESSION: Acute comminuted displaced fractures of the humeral surgical neck. Overlying soft tissue edema and swelling. Reading [facility]
--- NOTE | 2025-07-04 02:30 | RAD_ITS ---
PROCEDURE: SHOULDER MIN 2 VIEWS 07/04/2025 REASON FOR EXAM: PAIN AFTER FALL TECHNIQUE: Procedure Code: RADSH Modality: DX Procedure: SHOULDER MIN 2 VIEWS Laterality: LEFT. COMPARISON: NONE. FINDINGS: Acute comminuted displaced fractures of the humeral surgical neck. Overlying soft tissue edema and swelling. Mild osteopenia of the visualized bones. Degenerative joint disease. No dislocation is seen. No lytic or blastic bone lesion is noted. RAD/Shoulder min 2 Views IMPRESSION: Acute comminuted displaced fractures of the humeral surgical neck. Overlying soft tissue edema and swelling. Reading [facility]
--- OUTSIDE RECORDS SUMMARY | 2025-07-04 02:30 | XMS RPT_ITS | CCD ---
Author Organization [facility] Care Team Providers Care [employer] Name Role Phone Billy Braga Primary Care Unavailable Adam Arana Attending Unavailable Billy Braga Referring Unavailable Billy Braga Primary Care Unavailable Sean Alford Attending Unavailable Billy Braga Primary Care Unavailable BRENDA TREVINO Attending Unavailable Billy Braga Primary Care Unavailable Kennedy Fung Attending Unavailable Dr. Billy Braga DO Primary Care Provider Dr. Mj Ngo DO Emergency Provider Allergies Allergy Classification Reported Allergen(s) Allergy Type Date of Onset Reaction(s) Facility (2 sources) Penicillins Allergy to substance 12-26-2022 Other [facility] (1 source) Penicillins Drug allergy (disorder) 12-26-2022 [facility] Repository Medications Current Medications Medication Drug Class(es) Dates Sig (Normalized) Sig (Original) apixaban 5 mg oral tablet (1 source) Factor Xa Inhibitor Start: 07-03-2025 take 1 tablet by mouth twice daily Apixaban (Eliquis) 5 mg tablet Active 5 mg PO TWICE A DAY July 03, 2025 12:00am aspirin 81 mg oral tablet (3 sources) Platelet Aggregation Inhibitor, Nonsteroidal Anti-inflammatory Drug Start: 07-03-2025 take 1 capsule by mouth once daily Aspirin 81 mg capsule Active 81 mg PO DAILY July 03, 2025 12:00am Start: 02-21-2018 End: 07-03-2025 take 1 tablet by mouth once daily Aspirin (Aspir-Low) 81 MG tablet,delayed release (DR/EC) Discontinued 81 mg PO DAILY February 21, 2018 12:00am July 03, 2025 6:52am ANTIPLATELET atorvastatin 10 mg oral tablet (1 source) HMG-CoA Reductase Inhibitor Start: 07-03-2025 take 1 tablet by mouth at bedtime Atorvastatin (Lipitor) 10 mg tablet Active 10 mg PO AT BEDTIME July 03, 2025 12:00am cholecalciferol 0.05 mg oral capsule (4 sources) Vitamin D Start: 03-26-2018 take 1 capsule by mouth once daily Cholecalciferol (Vitamin D3) (Vitamin D3) 2,000 UNIT capsule Active 2000 U PO DAILY March 26, 2018 12:00am Start: 02-21-2018 End: 03-26-2018 take 1 tablet by mouth once daily Cholecalciferol (Vitamin D3) 2,000 UNIT Tab.Chew Discontinued 2000 U PO DAILY February 21, 2018 12:00am March 26, 2018 10:36am SUPPLEMENT furosemide 40 mg oral tablet (3 sources) Loop Diuretic Start: 07-03-2025 Furosemide (La six) 40 mg tablet Active 20 mg PO DAILY July 03, 2025 12:00am Start: 12-26-2022 End: 07-03-2025 take 1 tablet by mouth once daily Furosemide (Lasix) 40 mg tablet Discontinued 40 mg PO DAILY 14 0 December 26, 2022 1:00am July 03, 2025 6:53am levothyroxine sodium 0.075 mg oral tablet (3 sources) l-Thyroxine Start: 07-03-2025 take 1 tablet by mouth once daily Levothyroxine (Synthroid) 75 mcg tablet Active 75 ug PO DAILY July 03, 2025 12:00am Start: 03-26-2018 End: 07-03-2025 take 1 tablet by mouth once daily Levothyroxine 25 MCG tablet Discontinued 25 ug PO DAILY March 26, 2018 12:00am July 03, 2025 6:52am lisinopril 10 mg oral tablet (1 source) Angiotensin Converting Enzyme Inhibitor Start: 07-03-2025 take 1 tablet by mouth once daily Lisinopril 10 mg tablet Active 10 mg PO DAILY July 03, 2025 12:00am metFORMIN hydrochloride 500 mg oral tablet (2 sources) Biguanide Start: 02-21-2018 take 1 tablet by mouth twice daily at mealtime Metformin 500 MG tablet Active 500 mg PO TWICE DAILY WITH MEALS February 21, 2018 12:00am DIABETES metoprolol tartrate 25 mg oral tablet (2 sources) beta-Adrenergic Wojciech Start: 02-21-2018 take 1 tablet by mouth twice daily Metoprolol Tartrate 25 MG tablet Active 25 mg PO TWICE A DAY February 21, 2018 12:00am BLOOD PRESSURE tamsulosin hydrochloride 0.4 mg oral capsule (1 source) alpha-Adrenergic Wojciech Start: 07-03-2025 take 1 capsule by mouth once daily Tamsulosin 0.4 mg capsule Active 0.4 mg PO DAILY July 03, 2025 12:00am Completed/Discontinued Medications Medication Drug Class(es) Dates Sig (Normalized) Sig (Original) diclofenac sodium 0.01 mg/mg topical gel (2 sources) Nonsteroidal Anti-inflammatory Drug Start: 03-01-2022 End: 07-03-2025 Diclofenac Sodium (Voltaren Arthritis Pain) 1 % gel Discontinued 4 g TOPICAL THREE TIMES A DAY 100 0 March 01, 2022 12:00am July 03, 2025 6:53am apply to single knee docusate sodium 100 mg oral capsule (2 sources) Start: 02-21-2018 End: 07-03-2025 take 1 capsule by mouth twice daily as needed for constipation Docusate Sodium (Colace) 100 MG capsule Discontinued 100 mg PO TWICE A DAY as needed for Constipation February 21, 2018 12:00am July 03, 2025 6:53am simvastatin 20 mg oral tablet (2 sources) HMG-CoA Reductase Inhibitor Start: 02-21-2018 End: 07-03-2025 take 1 tablet by mouth at bedtime Simvastatin 20 MG tablet Discontinued 20 mg PO AT BEDTIME February 21, 2018 12:00am July 03, 2025 6:52am HYPERLIPIDEMIA warfarin sodium 2.5 mg oral tablet (4 sources) Vitamin K Antagonist Start: 02-21-2018 End: 03-01-2022 take 1 tablet by mouth once Warfarin (Coumadin (Pbkc)) 2.5 MG tablet Discontinued 2.5 mg PO every Sunday, , , Sat February 21, 2018 12:00am March 01, 2022 11:09am AFIB Start: 02-21-2018 End: 03-01-2022 Warfarin (Coumadin (Pbkc)) 5 MG tablet Discontinued 5 mg PO MOWEFR February 21, 2018 12:00am March 01, 2022 11:10am AFIB Problems Problem Classification Problem Date Documented Date Episodic/Chronic Congestive heart failure; nonhypertensive (2 sources) Congestive heart failure; Translations: [Heart failure, unspecified] 12-26-2022 Chronic Coronary atherosclerosis and other heart disease (2 sources) Calcific coronary arteriosclerosis; Translations: [Coronary atherosclerosis due to calcified coronary lesion] 03-26-2018 Chronic Open wounds of extremities (1 source) Laceration of hand; Translations: [Laceration without foreign body of unspecified hand, initial encounter] 07-03-2025 Episodic Osteoarthritis (2 sources) Osteoarthritis of right knee joint; Translations: [Unilateral primary osteoarthritis, right knee] 03-01-2022 Chronic Other connective tissue disease (1 source) Hand pain; Translations: [Pain in right hand] 07-03-2025 Episodic Other injuries and conditions due to external causes (1 source) Closed injury of head; Translations: [Unspecified injury of head, initial encounter] 07-03-2025 Episodic Other lower respiratory disease (2 sources) Dyspnea; Translations: [Dyspnea, unspecified] 12-26-2022 Episodic Other lower respiratory disease (1 source) Solitary pulmonary nodule; Translations: [Solitary pulmonary nodule] Onset: 01-30-2023 Episodic Other lower respiratory disease (1 source) Shortness of breath; Translations: [Shortness of breath] Onset: 01-02-2023 Episodic Other non-traumatic joint disorders (3 sources) Pain in right knee; Translations: [Right knee pain] Onset: 03-01-2022 03-01-2022 Episodic Results Test Name Value Interpretation Reference Range Facility 12 Lead EKGon 12-26-2022 12 Lead EKG [facility] Cardiovascular Services [address] [place] [address] 12 Lead EKG 12/26/22 1525 MR#: [id number] Acct: [id number] Name: KANDI GOMEZ Rep #: [id number] : 1945 77 From: Sean Moncada MD [...] Abnormal ECG Confirmed by ANTWAN RUSSO, SEAN ([id number]), metropolitan editor TEVIN KIRBY ([id number]) on 12/28/2022 9:44:56 AM Referred By: Confirmed By:SEAN MONCADA MD 12/28/22 0944 Date Sean Moncada MD CC: Dr. Billy Braga, DO; Dr. Sean Alford MD Signed Normal [facility] Absolute lymphocyte countOrd ered By: Dr. Alford on 12-26-2022 Lymphocytes Auto (Unsp spec) [#/Vol] 1.22 10*3/uL 0.83-4.51 [facility] BNP,B-Type NATRIURETIC PEPTI Peg 12-26-2022 Natriuretic peptide B (Bld) [Mass/Vol] 653.8 pg/mL High 0-100 [facility] Comment on above: Performed By: #### L 503.6620, L100.0100, L501.4020, L500.4050 #### [facility] Laboratory [address] [place], [place], [id number] Basophil percentageOrdered B y: Dr. Alford on 12-26-2022 Basophils/100 WBC (Bld) 0.6 % 0-[address] [facility] Bilirubin [Mass/Vol] 1.80 mg/dL 0.20-1.00 [facility] Comment on above: For patients on eltr ombopag therapy, use of Dimension Neal TBIL is not recommended. Chloride [Moles/Vol] 105 mmol/L 98-107 [facility] Eosinophils/100 WBC (Bld) 1.6 % 0-5 [facility] Glucose [Mass/Vol] 157 mg/dL 74-106 [facility] Comment on above: Fasting Glucose resu lt greater than or equal to 126 mg/dL suggests DIABETES MELLITUS per A.D.A. criteria. Neutrophils (Bld) [#/Vol] 7.4 10*3/uL 2.0-7.7 [facility] Neutrophils/100 WBC (Bld) 75.5 % 47-70 [facility] Potassium [Moles/Vol] 4.6 mmol/L 3.5-5.1 [facility] Protein [Mass/Vol] 7.2 g/dL 6.4-8.2 [facility] Sodium [Moles/Vol] 140 mmol/L 136-145 [facility] WBC (Bld) [#/Vol] 9.8 10*3/uL 4.4-11.0 [facility] Blood erythrocytes count (nu mber/volume)Ordered By: Dr. Alford on 12-26-2022 RBC (Bld) [#/Vol] 4.36 10*6/uL 4.6-6.2 [facility] Blood hemoglobin measurement (mass/volume)Ordered By: Dr. Alford on 12-26-2022 Hemoglobin (Bld) [Mass/Vol] 13.4 g/dL 13.0-16.5 [facility] Blood lymphocytes/100 leukoc ytesOrdered By: Dr. Alford on 12-26-2022 Lymphocytes/100 WBC (Bld) 12.5 % 19-41 [facility] Blood monocytes/100 leukocyt esOrdered By: Dr. Alford on 12-26-2022 Monocytes/100 WBC (Bld) 9.2 % 0-[address] [facility] Blood platelet mean volumeOr dered By: Dr. Alford on 12-26-2022 Platelet mean volume (Bld) [Entitic vol] 9.9 fL 6.2-12.0 [facility] CBC W/Diff, Automatedon 11-30 Absolute Lymph 1.22 X10 3/uL Normal 0.83-4.51 [facility] Comment on above: Performed By: #### L 503.6620, L100.0100, L501.4020, L500.4050 #### [facility] Laboratory [facility] [address] [place], [place], [id number] Absolute Neut 7.4 X10 3/uL Normal 2.0-7.7 [facility] Comment on above: Performed By: #### L 503.6620, L100.0100, L501.4020, L500.4050 #### [facility] Laboratory [address] [place], [address] Basophils/100 WBC (Bld) 0.6 % Normal 0-[address] [facility] Comment on above: Performed By: #### L 503.6620, L100.0100, L501.4020, L500.4050 #### [facility] Laboratory [address] [place], [address] Eosinophils/100 WBC (Bld) 1.6 % Normal 0-5 [facility] Comment on above: Performed By: #### L 503.6620, L100.0100, L501.4020, L500.4050 #### [facility] Laboratory [address] [place], [address] Erythrocyte distribution width (RBC) [Ratio] 14.5 % Normal 11.6-14.6 [facility] Comment on above: Performed By: #### L 503.6620, L100.0100, L501.4020, L500.4050 #### [facility] Laboratory [address] [place], [address] Hematocrit (Bld) [Volume fraction] 43.6 % Normal 40-54 [facility] Comment on above: Performed By: #### L 503.6620, L100.0100, L501.4020, L500.4050 #### [facility] Laboratory [address] [place], [address] Hemoglobin (Bld) [Mass/Vol] 13.4 g/dL Normal 13.0-16.5 [facility] Comment on above: Performed By: #### L 503.6620, L100.0100, L501.4020, L500.4050 #### [facility] Laboratory [address] [place], [address] IG% 0.600 Normal 0.0-0.9 [facility] Comment on above: Result Comment: IG% - Immature Granulocytes (promyelocytes, myelocytes and metamyelocytes) > 1% indicates that a LEFT SHIFT is Present. Performed By: #### L 503.6620, L100.0100, L501.4020, L500.4050 #### [facility] Laboratory [address] [place], [address] Lymphocytes/100 WBC (Bld) 12.5 % Low 19-41 [facility] Comment on above: Performed By: #### L 503.6620, L100.0100, L501.4020, L500.4050 #### [facility] Laboratory [address] [place], [address] MCH (RBC) [Entitic mass] 30.7 pg Normal 27.0-32.0 [facility] Comment on above: Performed By: #### L 503.6620, L100.0100, L501.4020, L500.4050 #### [facility] Laboratory [address] [place], [address] MCHC (RBC) [Mass/Vol] 30.7 g/dL Low 32-36 [facility] Comment on above: Performed By: #### L 503.6620, L100.0100, L501.4020, L500.4050 #### [facility] Laboratory [address] [place], [address] MCV (RBC) [Entitic vol] 100.0 fL High 80-[address] [facility] Comment on above: Performed By: #### L 503.6620, L100.0100, L501.4020, L500.4050 #### [facility] Laboratory [address] [place], [address] Monocytes/100 WBC (Bld) 9.2 % Normal 0-[address] [facility] Comment on above: Performed By: #### L 503.6620, L100.0100, L501.4020, L500.4050 #### [facility] Laboratory [address] [place], [address] Neutrophils/100 WBC (Bld) 75.5 % High 47-70 [facility] Comment on above: Performed By: #### L 503.6620, L100.0100, L501.4020, L500.4050 #### [facility] Laboratory [address] [place], [address] Nucleated RBC (Bld) [#/Vol] 0 10*3/uL Normal 0-5 [facility] Comment on above: Performed By: #### L 503.6620, L100.0100, L501.4020, L500.4050 #### [facility] Laboratory [address] [place], [address] Platelet mean volume (Bld) [Entitic vol] 9.9 fL Normal 6.2-12.0 [facility] Comment on above: Performed By: #### L 503.6620, L100.0100, L501.4020, L500.4050 #### [facility] Laboratory [address] [place], [address] Platelets (Bld) [#/Vol] 292 10*3/uL Normal 150-450 [facility] Comment on above: Performed By: #### L 503.6620, L100.0100, L501.4020, L500.4050 #### [facility] Laboratory [address] [place], [address] RBC (Bld) [#/Vol] 4.36 10*6/uL Low 4.6-6.2 [facility] Comment on above: Performed By: #### L 503.6620, L100.0100, L501.4020, L500.4050 #### [facility] Laboratory [address] [place], [address] RDW SD 52.6 fl High 35.1-43.9 [facility] Comment on above: Performed By: #### L 503.6620, L100.0100, L501.4020, L500.4050 #### [facility] Laboratory [address] [place], [address] WBC (Bld) [#/Vol] 9.8 10*3/uL Normal 4.4-11.0 [facility] Comment on above: Performed By: #### L 503.6620, L100.0100, L501.4020, L500.4050 #### [facility] Laboratory [address] [place], [address] COVID 19 AG RAPID (TOMAS Bruno)on 12-26-2022 SARS-CoV-2 (COVID-19) RNA ELSA+probe Ql (Unsp [...] RAPID METHOD BinaxNow COVID19 Ag Card Normal [facility] Comment on above: Performed By: #### M 100.505 #### [facility] Laboratory [address] [place], [address] COVID-19 virus antigen assay Ordered By: Dr. Alford on 12-26-2022 SARS-CoV-2 (COVID-19) Ag IA.rapid Ql (Resp) [facility] Chest PA and Lateralon 12-26 Chest PA and Lateral [facility] Imaging Services [address] [place] [address] Chest PA and Lateral MR#: [id number] Acct: [id number] Name: KANDI GOMEZ Rep #: [id number] : 1945 M 77 From: Sean Borjas MD PCP: Dr. Billy Braga DO Status: REG ER Study: Chest PA and Lateral Date of Exam: 12/26/22 Exam# [id number] Ordering Dr: Sean Alford MD INDICATION: SOB [...] at 16:18 EST , CC: Dr. Billy Braga DO; Dr. Sean Alford MD Shear Assembler: Signed Normal [facility] Comprehensive Metabolic Prof ilon 12-26-2022 Albumin [Mass/Vol] 3.8 g/dL Normal 3.2-5.0 [facility] Comment on above: Order Comment: 'TROP ' Serial specimen #1, #2 or #3: 1 Performed By: #### L 503.6620, L100.0100, L501.4020, L500.4056 #### [facility] Laboratory [address] [place], [place], [address] Albumin/Globulin [Mass ratio] 1.1 {ratio} Normal 0.9-2.4 [facility] Comment on above: Order Comment: 'TROP ' Serial specimen #1, #2 or #3: 1 Performed By: #### L 503.6620, L100.0100, L501.4020, L500.4050 #### [facility] Laboratory [address] [place], [address] ALK P 119 U/L High 45-117 [facility] Comment on above: Order Comment: 'TROP ' Serial specimen #1, #2 or #3: 1 Performed By: #### L 503.6620, L100.0100, L501.4020, L500.4050 #### [facility] Laboratory [address] [place], [address] ALT [Catalytic activity/Vol] 27 U/L Normal 16-61 [facility] Comment on above: Order Comment: 'TROP ' Serial specimen #1, #2 or #3: 1 Performed By: #### L 503.6620, L100.0100, L501.4020, L500.4050 #### [facility] Laboratory [address] [place], [address] AST [Catalytic activity/Vol] 19 U/L Normal 15-37 [facility] Comment on above: Order Comment: 'TROP ' Serial specimen #1, #2 or #3: 1 Performed By: #### L 503.6620, L100.0100, L501.4020, L500.4050 #### [facility] Laboratory [address] [place], [address] Bilirubin [Mass/Vol] 1.80 mg/dL High 0.20-1.00 [facility] Comment on above: Order Comment: 'TROP ' Serial specimen #1, #2 or #3: 1 Result Comment: For patients on eltrombopag therapy, use of Dimension Neal TBIL is not recommended. Performed By: #### L 503.6620, L100.0100, L501.4020, L500.4050 #### [facility] Laboratory [address] [place], [address] BUN/CRE 16.8 RATIO Normal 10-20 [facility] Comment on above: Order Comment: 'TROP ' Serial specimen #1, #2 or #3: 1 Performed By: #### L 503.6620, L100.0100, L501.4020, L500.4050 #### [facility] Laboratory [address] [place], [address] CA,Total 9.7 mg/dL Normal 8.5-10.1 [facility] Comment on above: Order Comment: 'TROP ' Serial specimen #1, #2 or #3: 1 Performed By: #### L 503.6620, L100.0100, L501.4020, L500.4050 #### [facility] Laboratory [address] [place], [address] Chloride [Moles/Vol] 105 mmol/L Normal 98-107 [facility] Comment on above: Order Comment: 'TROP ' Serial specimen #1, #2 or #3: 1 Performed By: #### L 503.6620, L100.0100, L501.4020, L500.4050 #### [facility] Laboratory [address] [place], [address] CO2 [Moles/Vol] 26.0 mmol/L Normal 21.0-32.0 [facility] Comment on above: Order Comment: 'TROP ' Serial specimen #1, #2 or #3: 1 Performed By: #### L 503.6620, L100.0100, L501.4020, L500.4050 #### [facility] Laboratory [address] [place], [address] Creatinine [Mass/Vol] 1.84 mg/dL High 0.70-1.30 [facility] Comment on above: Order Comment: 'TROP ' Serial specimen #1, #2 or #3: 1 Result Comment: The validity of the calculated GFR GFRAA in patients over 70 years has not been determined. Clinical correlation is essential. Performed By: #### L 503.6620, L100.0100, L501.4020, L500.4050 #### [facility] Laboratory [address] [place], [address] ECRCL 36.95 ml/min Normal [facility] Comment on above: Order Comment: 'TROP ' Serial specimen #1, #2 or #3: 1 Performed By: #### L 503.6620, L100.0100, L501.4020, L500.4050 #### [facility] Laboratory [address] [place], [address] EST GFR - AA 46 mL/min Low >60 [facility] Comment on above: Order Comment: 'TROP ' Serial specimen #1, #2 or #3: 1 Result Comment: Afri can [place]er GFR Calc Performed By: #### L 503.6620, L100.0100, L501.4020, L500.4050 #### [facility] Laboratory [address] [place], [address] GAP 9 Normal 5-15 [facility] Comment on above: Order Comment: 'TROP ' Serial specimen #1, #2 or #3: 1 Performed By: #### L 503.6620, L100.0100, L501.4020, L500.4050 #### [facility] Laboratory [address] [place], [address] GFR/1.73 sq M.predicted among non-blacks MDRD (S/P/Bld) [Vol rate/Area] 38 mL/min/{1.73_m2} Low >60 [facility] Comment on above: Order Comment: 'TROP ' Serial specimen #1, #2 or #3: 1 Result Comment: Non- GFR Calc Performed By: #### L 503.6620, L100.0100, L501.4020, L500.4050 #### [facility] Laboratory [address] [place], [address] Globulin (S) [Mass/Vol] 3.4 g/dL Normal 2.2-4.2 [facility] Comment on above: Order Comment: 'TROP ' Serial specimen #1, #2 or #3: 1 Performed By: #### L 503.6620, L100.0100, L501.4020, L500.4050 #### [facility] Laboratory [address] [place], [address] Glucose [Mass/Vol] 157 mg/dL High 74-106 [facility] Comment on above: Order Comment: 'TROP ' Serial specimen #1, #2 or #3: 1 Result Comment: Fast ing Glucose result greater than or equal to 126 mg/dL suggests DIABETES MELLITUS per A.D.A. criteria. Performed By: #### L 503.6620, L100.0100, L501.4020, L500.4050 #### [facility] Laboratory [address] [place], [address] Potassium [Moles/Vol] 4.6 mmol/L Normal 3.5-5.1 [facility] Comment on above: Order Comment: 'TROP ' Serial specimen #1, #2 or #3: 1 Performed By: #### L 503.6620, L100.0100, L501.4020, L500.4050 #### [facility] Laboratory [address] [place], [address] Sodium [Moles/Vol] 140 mmol/L Normal 136-145 [facility] Comment on above: Order Comment: 'TROP ' Serial specimen #1, #2 or #3: 1 Performed By: #### L 503.6620, L100.0100, L501.4020, L500.4050 #### [facility] Laboratory [address] [place], [address] T PROT 7.2 g/dL Normal 6.4-8.2 [facility] Comment on above: Order Comment: 'TROP ' Serial specimen #1, #2 or #3: 1 Performed By: #### L 503.6620, L100.0100, L501.4020, L500.4050 #### [facility] Laboratory [address] [place], [address] Urea nitrogen [Mass/Vol] 31 mg/dL High 7-18 [facility] Comment on above: Order Comment: 'TROP ' Serial specimen #1, #2 or #3: 1 Performed By: #### L 503.6620, L100.0100, L501.4020, L500.4050 #### [facility] Laboratory [address] [place], [address] Determination of erythrocyte mean corpuscular volume (MCV)Ordered By: Dr. Alford on 12-26-2022 MCV (RBC) [Entitic vol] 100.0 fL 80-[address] [facility] Emergency Department Summary on 12-26-2022 Emergency Department Summary [facility] Medical Records Department [address] [place] [address] Emergency Department Summary 12/26/22 MR#: [id number] Acct: [id number] Name: KANDI GOMEZ Rep #: [id number] : 1945 77 From: Sean Alford MD [...] normal stools. He is denying chest pain. [facility] Medical History (Updated 12/26/22 @ 17:21 by [...] (Updated 03/26/18 @ 10:44 by Mendoza Shaffer, ELEMENT BURNER, APPLICATIONS SYSTEMS ENGINEER, BS) Mother Cancer Father Heart failure Surgical [...] 4.36 L (more content not included)... Normal [facility] Hematocrit Auto (Bld) [Volum e fraction]Ordered By: Dr. Alford on 12-26-2022 Hematocrit (Bld) [Volume fraction] 43.6 % 40-54 [facility] L501.4020on 12-26-2022 TROPONIN-I HS 8 pg/mL Normal 3.0-78.0 [facility] Comment on above: Order Comment: 'TROP ' Serial specimen #1, #2 or #3: 1 Result Comment: Plea se Note: New Test Units and Gender Specific Reference Ranges. For more information see Policy Stat Procedure Neal High Sensitivity Troponin (TNIH) and attachments. Performed By: #### L 503.6620, L100.0100, L501.4020, L500.4050 #### [facility] Laboratory [address] [place], [address] Laboratory - Chemistry and C hemistry - challengeOrdered By: Dr. Alford on 12-26-2022 ALP [Catalytic activity/Vol] 119 U/L 45-117 [facility] ALT [Catalytic activity/Vol] 27 U/L 16-61 [facility] CO2 [Moles/Vol] 26.0 mmol/L 21.0-32.0 [facility] Globulin (S) [Mass/Vol] 3.4 g/dL 2.2-4.[address] [facility] Natriuretic peptide B (Bld) [Mass/Vol] 653.8 pg/mL 0-100 [facility] Urea nitrogen/Creatinine [Mass ratio] 16.8 mg/mg 10-20 [facility] Laboratory - Hematology and Cell countsOrdered By: Dr. Alford on 12-26-2022 Erythrocyte distribution width (RBC) [Entitic vol] 52.6 fL 35.1-43.9 [facility] Erythrocyte distribution width (RBC) [Ratio] 14.5 % 11.6-14.6 [facility] Immature granulocytes/100 WBC (Bld) 0.600 % 0.0-0.9 [facility] Comment on above: IG% - Immature Granu locytes (promyelocytes, myelocytes and metamyelocytes) > 1% indicates that a LEFT SHIFT is Present. MCH (RBC) [Entitic mass] 30.7 pg 27.0-32.0 [facility] Nucleated RBC/100 WBC (Bld) [Ratio] 0 % 0-5 [facility] MCHC Auto (RBC) [Mass/Vol]Or dered By: Dr. Alford on 12-26-2022 MCHC (RBC) [Mass/Vol] 30.7 g/dL 32-36 [facility] No Panel InformationOrdered By: Dr. Alford on 12-26-2022 Estimated Creatinine Clearance Calc 36.95 ml/min [facility] Estimated GFR (MDRD) Amer 46 mL/min >60 [facility] Comment on above: GFR Calc Estimated GFR (MDRD) Non-Af Amer 38 mL/min >60 [facility] Comment on above: Non- GFR Calc Troponin I High Sensitivity 8 pg/mL 3.0-78.0 [facility] Comment on above: Please Note: New Carmen t Units and Gender Specific Reference Ranges. For more information see Policy Stat Procedure Neal High Sensitivity Troponin (TNIH) and attachments. Platelets bldOrdered By: Dr. Alford on 12-26-2022 Platelets (Bld) [#/Vol] 292 10*3/uL 150-450 [facility] Serum or plasma albumin sheldon urement (mass/volume)Ordered By: Dr. Alford on 12-26-2022 Albumin [Mass/Vol] 3.8 g/dL 3.2-5.0 [facility] Serum or plasma albumin/glob ulin mass ratioOrdered By: Dr. Alford on 12-26-2022 Albumin/Globulin [Mass ratio] 1.1 {ratio} 0.9-2.4 [facility] Serum or plasma calcium sheldon urement (mass/volume)Ordered By: Dr. Alford on 12-26-2022 Calcium [Mass/Vol] 9.7 mg/dL 8.5-10.1 [facility] Serum or plasma creatinine m easurement (mass/volume)Ordered By: Dr. Alford on 12-26-2022 Creatinine [Mass/Vol] 1.84 mg/dL 0.70-1.30 [facility] Comment on above: The validity of the calculated GFR & GFRAA in patients over 70 years has not been determined. Clinical correlation is essential. Serum or plasma urea nitroge n measurement (mass/volume)Ordered By: Dr. Alford on 12-26-2022 Urea nitrogen [Mass/Vol] 31 mg/dL 7-18 [facility] Thin prep Papanicolaou smear with manual screeningOrdered By: Dr. Alford on 12-26-2022 Thin prep Papanicolaou smear with manual screening 19 U/L 15-37 [facility] Thin prep Papanicolaou smear with manual screening 9 5-15 [facility] Knee 4 or More Viewson 03-01 Knee 4 or More Views [facility] Radiology [address] [place] [address] Knee 4 or More Views MR#: [id number] Acct: [id number] Name: KANDI GOMEZ Rep #: [id number] : 1945 M 76 From: Eleazar Tinoco MD PCP: Dr. Billy Braga DO Status: DEP AMB Study: Knee 4 or More Views Date of Exam: 03/01/22 Exam# [id number] Ordering Dr: Adam Ribeiro STUDY: X-RAY - RIGHT KNEE REASON FOR [...] CC: TISHA Ribeiro; Dr. Billy Braga DO Shear Assembler: Signed Normal [facility] Orthopedic Visit Reporton Orthopedic Visit Report [facility] Orthopaedics Sports Medicine [address] [place] [address] OFFICE VISIT Date of Service: 03/01/22 MR#: [id number] Acct: [id number] Name: KANDI GOMEZ Rep #: [id number] : 1945 Provider: TISHA Ribeiro Age/Sex: 76/M Location: [facility] [place] Status: Signed Intake Vital Signs 03/01/22 11:08 [...] 03/26/18 @ 10:43 by Mendoza Shaffer CRT, APPLICATIONS SYSTEMS ENGINEER, BS) History of tonsillectomy and adenoidectomy S/P [...] or More Views 03/01/22 M25.561 Plan - TISHA Chairez: Patient presents the office today with right [...] anatomy ph (more content not included)... Normal [facility] Vital Signs Date Time Vital Sign Value Performing Clinician Max morelos 07-03-2025 08:03-0400 Body temperature 97.9 [degF] Dr. Billy Braga DO Work Phone: [facility] 07-03-2025 08:03-0400 Diastolic blood pressure 69 mm[Hg] Dr. Billy Braga DO Work Phone: [facility] 07-03-2025 08:03-0400 Heart rate 67 /min Dr. Billy Braga DO Work Phone: [facility] 07-03-2025 08:03-0400 Respiratory rate 16 /min Dr. Billy Braga DO Work Phone: [facility] 07-03-2025 08:03-0400 SaO2% (BldA) [Mass fraction] 97 % Dr. Billy Braga DO Work Phone: [facility] 07-03-2025 08:03-0400 Systolic blood pressure 151 mm[Hg] Dr. Billy Braga DO Work Phone: [facility] 07-03-2025 06:45-0400 Body height 180.[address] Billy Braga DO Work Phone: [facility] 07-03-2025 06:45-0400 Body mass index (BMI) [Ratio] 37.7 kg/m2 Dr. Billy Braga DO Work Phone: [facility] 07-03-2025 06:45-0400 Body weight 122.[address] Billy Braga DO Work Phone: [facility] 12-26-2022 17:42-0500 Body temperature 98 [degF] [facility] 12-26-2022 17:42-0500 Diastolic blood pressure 88 mm[Hg] [facility] 12-26-2022 17:42-0500 Heart rate 67 /min [facility] 12-26-2022 17:42-0500 Respiratory rate 18 /min [facility] 12-26-2022 17:42-0500 SaO2% (BldA) [Mass fraction] 92 % [facility] 12-26-2022 17:42-0500 Systolic blood pressure 123 mm[Hg] [facility] 12-26-2022 15:22-0500 Body height 180.34 cm [facility] 12-26-2022 15:22-0500 Body mass index (BMI) [Ratio] 38.1 kg/m2 [facility] 12-26-2022 15:22-0500 Body weight 124.1 kg [facility] Encounters Encounter Date Encounter Type Care Provider Facility Start: 07-03-2025 End: 07-03-2025 Emergency department patient visit Dr. Billy Braga DO Work Phone: -Emergency Department Work Phone: Start: 02-02-2023 ambulatory Billy Maria Luz Facility: [facility] Start: 12-26-2022 End: 12-26-2022 Emergency department patient visit [facility] Facility:[facility] Start: 12-26-2022 End: 12-26-2022 Emergency department patient visit [facility]-Emergency Department Start: 03-01-2022 End: 03-01-2022 ambulatory [facility] Facility:[facility] Procedures Date Procedure Procedure Detail Performing Clinician Start: 07-03-2025 Plain x-ray of hand Dr. Billy Braga DO Work Phone: Start: 07-03-2025 Plain x-ray of wrist Dr Justice Braga DO Work Phone: Start: 07-03-2025 XR forearm, [address] Billy Braga DO Work Phone: Start: 07-03-2025 CT cervical spine wi thout contrast Dr. Billy Braga DO Work Phone: Start: 07-03-2025 CT of head without contrast Dr. Billy Braga DO Work Phone: Start: 12-26-2022 Plain chest X-ray History of coronary artery bypass grafting Hx of CABG Viral antigen assay Plan of Treatment Date Care Activity Detail Author Start: 07-03-2025 [facility] Patient Education What Is Heart Failure [facility] Work Phone: Patient referral [facility] Work Phone: Immunizations Immunization Date Immunization Notes Care Provider Fa cility 07-03-2025 tetanus toxoid, redu pj diphtheria toxoid, and acellular pertussis vaccine, adsorbed Dr. Billy Braga DO Work Phone: [facility] 04-21-2019 tetanus toxoid, redu pj diphtheria toxoid, and acellular pertussis vaccine, adsorbed [facility] Payers Date Payer Category Payer Unknown [id number] 2022 Self-pay [id number] 2022 Medicare [id number] Self-pay [id number] 51 Unknown [id number] Unknown [id number] 2.16.8 [id number] Unknown [id number] 2.16.8 [id number] Unknown [id number] 2.16.8 [id number] Unknown [id number] 2.16.8 [id number] Social History Date Type Detail Facility Start: 12-26-2022 [facility] Start: 1945 Sex Assigned At Male [facility] Start: 07-03-2025 [facility] (finding) [facility] Clinical Notes 12-26-2022 to 07-03-2025 Note Date & Type Note Facility 07-03-2025 Discharge summary [facility] 07-03-2025 Radiology Diagnostic study note [facility] Imaging Services [address] [place] [address] Hand Min 3 Views MR#: [id number] Acct: [id number] Name: KANDI GOMEZ Rep #: [id number] : 1945 M 80 From: Barbara Palomino MD PCP: Dr. Billy Braga DO Status: REG ER Study:Hand Min 3 Views Date of Exam: 03/22 Exam# [id number] Ordering Dr: Damion Ngo DO PROCEDURE: HAND MIN 3 VIEWS 07/03/2025 REASON FOR EXAM: FALL, HAND LAC BASE OF 5TH TECHNIQUE: Procedure Code: GINNA Modality: DX Procedure: HAND MIN 3 VIEWS Laterality: COMPARISON: None ORDER #: RAD/Hand Min 3 Views IMPRESSION: No acute fracture or dislocations. Scattered mild degenerative changes. Mild soft tissue edema/contusion. No radiographic foreign body. [place] Location: [facility] CC: Dr. Billy Braga DO; Dr. Mj Ngo DO ~ Shear Assembler: Signed [facility] 07-03-2025 Radiology Diagnostic study note [facility] Imaging Services [facility] [place], [place] [id number] Wrist min 3 Views MR#: [id number] Acct: [id number] Name: KANDI GOMEZ Rep #: [id number] : 1945 M 80 From: Barbara Palomino MD PCP: Dr. Billy Braga DO Status: REG ER Study:Wrist min 3 Views Date of Exam: Exam# [id number] Ordering Dr: Damion Ngo DO PROCEDURE: WRIST MIN 3 VIEWS 07/03/2025 REASON FOR EXAM: FALL TECHNIQUE: Procedure Code: RADWR Modality: DX Procedure: WRIST MIN 3 VIEWS COMPARISON: None RAD/Wrist min 3 Views IMPRESSION: No acute fracture or dislocations. Scattered mild degenerative changes. No acute soft tissue abnormalities. No radiographic foreign body. [place] Location: [facility] CC: Dr. Billy Braga DO; Dr. Mj Ngo DO ~ Shear Assembler: Signed [facility] 07-03-2025 Radiology Diagnostic study note [facility] Imaging Services [address] [place], [place] [id number] Forearm 2 Views MR#: [id number] Acct: [id number] Name: KANDI GOMEZ Rep #: [id number] : 1945 M 80 From: Barbara Palomino MD PCP: Dr. Billy Braga DO Status: REG ER Study:Forearm 2 Views Date of Exam: 03/22 Exam# [id number] Ordering Dr: Damion Ngo DO PROCEDURE: FOREARM 2 VIEWS 07/03/2025 REASON FOR EXAM: FALL TECHNIQUE: Procedure Code: RADFA Modality: DX Procedure: FOREARM 2 VIEWS COMPARISON: None RAD/Forearm 2 Views IMPRESSION: No acute fracture or dislocations. Scattered mild degenerative changes. No acute soft tissue abnormalities. No radiographic foreign body. [place] Location: [facility] CC: Dr. Billy Braga DO; Dr. Mj Ngo DO ~ Shear Assembler: Signed [facility] 07-03-2025 Radiology Diagnostic study note [facility] Imaging Services [address] [place] [address] Spine Cervical without Contras MR#: [id number] Acct: [id number] Name: KANDI GOMEZ Rep #: [id number] : 1945 M 80 From: Barbara Palomino MD PCP: Dr. Billy Braga DO Status: REG ER Study:Spine Cervical without Contras Date of Exam: 07/03/25 Exam# [id number] Ordering Dr: Damion Ngo DO PROCEDURE: SPINE CERVICAL WITHOUT CONTRAS 07/03/2025 REASON FOR EXAM: FALL TECHNIQUE: Procedure Code: CTSPC Modality: CT Procedure: SPINE CERVICAL WITHOUT CONTRAS Coronal and Sagittal reconstruction series were provided. One or more dose reduction techniques were used (e.g., Automated exposure control, adjustment of the mA and/or kV according to patient size, use of iterative reconstruction technique. 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 Possible fracture of the anterior osteophyte at C4. No other acute compression deformity, fracture, or subluxation. Moderate multilevel degenerative changes with moderate multilevel central canal stenosis and foraminal stenosis due to posterior disc-osteophyte complex, facet hypertrophy, and uncovertebral hypertrophy most prominent at C6-C7. The prevertebral soft tissues are not thickened. Thyroid is unremarkable. Limited sections of the lung apices demonstrate no pneumothorax. 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 Possible fracture of the anterior osteophyte at C4. No other acute compression deformity, fracture, or subluxation. Moderate multilevel degenerative changes of the cervical spine with moderate central canal stenosis most prominent at C6-C7. [place] Location: [facility] CC: Dr. Billy Braga DO; Dr. Mj Ngo DO ~ Shear Assembler: Signed [facility] 07-03-2025 Radiology Diagnostic study note [facility] Imaging Services [address] [place] [address] Brain/Head without Contrast MR#: [id number] Acct: [id number] Name: KANDI GOMEZ Rep #: [id number] : 1945 M 80 From: Barbara Palomino MD PCP: Dr. Billy Braga DO Status: REG ER Study:Brain/Head without Contrast Date of Exa m: 07/03/25 Exam# [id number] Ordering Dr: Damion Ngo DO PROCEDURE: BRAIN/HEAD WITHOUT CONTRAST 07/03/2025 REASON FOR EXAM: FALL TECHNIQUE: Procedure Code: CTBR Modality: CT Procedure: BRAIN/HEAD WITHOUT CONTRAST Coronal and Sagittal reconstruction series were provided. One or more dose reduction techniques were used (e.g., Automated exposure control, adjustment of the mA and/or kV according to patient size, use of iterative reconstruction technique. RADIATION DOSE SUMMARY: DLP: 1540 mGycm COMPARISON: None FINDINGS: There is no acute infarct, intracranial hemorrhage, or mass effect. There is no hydrocephalus or significant midline shift. There is mild chronic microvascular ischemic changes and mild parenchymal volumeloss. No acute, depressed calvarial fractures. No large scalp hematomas. The paranasal sinuses are clear. CT/Brain/Head without Contrast IMPRESSION: No acute intracranial process. [place] Location: [id number] CC: Dr. Billy Braga DO; Dr. Mj Ngo DO ~ Shear Assembler: Signed [facility] 12-26-2022 Discharge summary Note Date/Time December 26, 2022 3:41pm [facility] Medical Records Department [address] [place] [address] Emergency Department Summary 12/26/22 MR#: [id number] Acct: [id number] Name: KANDI GOMEZ Rep #:[id number] : 1945 77 From: Sean Alford MD PCP: Dr. Billy Braga DO Status:REG ER Location: ED HPI History [...] normal stools. He is denying chest pain. [facility] Medical History (Updated 12/26/22 @ 17:21 by [...] (Updated 03/26/18 @ 10:44 by Mendoza Shaffer, ELEMENT BURNER, APPLICATIONS SYSTEMS ENGINEER, BS) Mother Cancer Father Heart failure Surgical [...] 75.5 H Lymph % (Auto) 12.5 L Holmes % (Auto) 9.2 Eos % (Auto) 1.6 [...] Signed: Sean Borjas MD at 16:18 EST [place] Location ID and State: [facility] / [place] Tel , Service support , EKG Initial EKG: Comments: Sinus rhythm with a rate of 69. Normal [place] and QTc intervals. No ischemic changes. Interpreted [...] This was 5 years ago at the [place] he has not had an echocardiogram since [...] your Primary Care Provider. Call [facility] ([phone]) or report to the closest Emergency Room. Call 911 if necessary. 12/26/22 1723 <Electronically signed by Sean Alford MD> Cosigner Signature (if applicable): CC: Dr. Billy Braga DO ~ Signed [facility] Work Phone: Discharge summary Author Mj Ngo [facility] Note Date/Time July 03, 2025 8:02am [facility] Medical Records Department [address] [place] [address] Emergency Department Summary 07/03/25 MR#: [id number] Acct: [id number] Name: KANDI GOMEZ Rep #:[id number] : 1945 80 From: Mj Ngo DO PCP: Dr. Billy Braga DO Status:REG ER Location: ED HPI History of Present Illness Chief Complaint: Fall Narrative Narrative: Patient is a 72-year-old male status post CABG, status post aortic valve replacement, CAD who presented to the emergency department chief complaint of fall. Patient notes that he was letting the dog outside this morning when he tripped over some boards landing on the concrete. He states that he did hit hishead but did not pass out. He states that he is on Eliquis as well. Patient states he is unsure when his last tetanus shot was. He is complaining of right hand pain and a cut. [facility] Medical History Tonsil and adenoid disease, chronic Hernia Coronary atherosclerosis due to severely calcified coronary lesion Home Medications ?Medication ?Instructions ?Recorded ?Last Taken ?Type metformin 500 mg tablet 500 mg PO BIDCM DIABETES 02/21/18 History 500 MG metoprolol tartrate 25 mg tablet 25 mg PO BID BLOOD [place] ESSURE 02/21/18 02/21/18 History 25 MG cholecalciferol (vitamin D3) 50 2,000 unit PO DAILY Unknown History mcg (2,000 unit) capsule (Vitamin D3) apixaban 5 mg tablet (Eliquis) 5 mg PO BID 07/03/25 Un known History aspirin 81 mg capsule 81 mg PO DAILY 07/03/25 Unkn own History atorvastatin 10 mg tablet (Lipitor) 10 mg PO QHS 07/03 Unknown History furosemide 40 mg tablet (Lasix) 20 mg PO DAILY 5 Unknown History levothyroxine 75 mcg tablet 75 mcg PO DAILY 07/03/25 U nknown History (Synthroid) lisinopril 10 mg tablet 10 mg PO DAILY 07/03/25 Unkn own History tamsulosin 0.4 mg capsule 0.4 mg PO DAILY 07/03/25 Unk nown History Allergy/AdvReac Type Severity Reaction Status Date / Time Penicillins Allergy Other Verified 07/03/25 06:45 Family History Mother Cancer Father Heart failure Surgical History History of tonsillectomy and adenoidectomy S/P AVR (aortic valve replacement) S/P CABG x 1 Social History Smoking Status: Never smoker ROS ROS ED ROS Narrative Constitutional: Denies any headache, lightness, dizziness, fevers, chills Eyes: Denies double vision Cardiovascular: Denies chest pain Respiratory: Denies shortness of breath Abdomen: Denies abdominal pain nausea vomit diarrhea Neurological: Denies any numbness, weakness, tingling Musculoskeletal: Complains of right hand pain as noted above Skin: Complains of laceration of the right hand EXAM Physical Exam Narrative Exam Narrative: General: Patient lying in bed rest comfortably did not appear to be in acute distress Head: Atraumatic, normocephalic Eyes: PERRL bilaterally, EOMI bilateral, no conjunctival injection noted Neck: Soft, supple, trachea midline no tenderness palpation midline cervical spine Cardiovascular: Regular rate Respiratory: Clear to auscultation bilaterally Abdomen: No tenderness to palpation Musculoskeletal: No tenderness palpation in the midline of the thoracolumbar spine, patient has mild tenderness palpation over the right volar aspect of his hand near his fifth phalanx and near his wrist, all other bony prominences palpated joints taken through full range of motion no pain elicited Extremities: +5/5 strength noted in the bilateral upper and lower extremities, radial pulses +2/4 in the bilateral extremities Neurological: Patient following commands knew that he was at [facility] year is 2024 Skin: Warm, dry, patient has a complex laceration noted to the volar aspect of his right hand at the base of the fifth phalanx Const Vital Signs: 07/03/25 06:45 07/03/25 06:50 Temperature 98.1 F Temperature Source Oral Pulse Rate 63 Respiratory Rate 18 Respiratory Effort Normal Non-Labored Respiratory Depth Normal Respiratory Pattern Normal Blood Pressure 147/73 H Blood Pressure Mean 97 Pulse Ox 94 Oxygen Delivery Method Room Air Room Air MDM MDM MDM Narrative Medical decision making narrative: Patient is a 80-year-old male who presents to the emergency department this morning after mechanical fall after tripping over boards causing him to fall forward with a laceration to his right hand and hitting his head. On the differential diagnose includes but not limited to intracranial hemorrhage, cervical spine fracture, metacarpal fracture, fifth phalanx fracture Patient CT head brain without contrast showed no acute intracranial processes. 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 Patient has no no neck pain noted on exam clinically to correlate with this no acute compression deformity fracture or subluxation moderate multilevel degenerative changes of cervical spine with moderate central canal stenosis most prominent atC6-C7. Patient's forearm x-ray showed no fracture dislocations scattered mild degenerative changes no acute soft tissue abnormalities no radiograph foreign body. This was reviewed by myself and by radiology. Patient's hand x-ray reviewed by myself and by radiology showed no fracture dislocations. Patient's x-ray of his wrist was also reviewed by myself by radiology showed no acute fracture or dislocation. Patient had a laceration repaired here in the emergency department see procedurenote for separate details. Patient was advised to keep the area dry and clean and use Tylenol for pain control. Patient was advised to watch out for signs of infection and if this isto occur he is to return to the emergency department or call his primary care physician for antibiotics. He was advised to have his sutures removed in approximately 7 to 10 days. He is vies to return with worsening symptoms or anyother concerns. He is agreeable to plan as well as significant other bedside all question concerns answered he is discharged home in stable condition peer Radiography Diagnostic Testing: Clinical Impression(s) from Imaging Studies Brain CT 07/03/25 07:00 IMPRESSION: No acute intracranial process. Reading Location: [facility] Cervical Spine CT 07/03/25 07:00 IMPRESSION: Flowing bridging anterior osteophytes may reflect DISH. Possible fracture of the anterior osteophyte at C4. No other acute compression deformity, fracture, or subluxation. Moderate multilevel degenerative changes of the cervical spine with moderate central canal stenosis most prominent at C6-C7. Reading Location: [facility] Forearm X-Ray 07/03/25 07:11 IMPRESSION: No acute fracture or dislocations. Scattered mild degenerative changes. No acute soft tissue abnormalities. No radiographic foreign body. Reading Location: [facility] Hand X-Ray 07/03/25 07:11 IMPRESSION: No acute fracture or dislocations. Scattered mild degenerative changes. Mild soft tissue edema/contusion. No radiographic foreign body. Reading Location: [facility] Wrist X-Ray 07/03/25 07:11 IMPRESSION: No acute fracture or dislocations. Scattered mild degenerative changes. No acute soft tissue abnormalities. No radiographic foreign body. Reading Location: [facility] Discharge Plan Triage Chief Complaint: Fall ED Provider: Mj Ngo Dx/Rx/DC Orders Clinical Impression: Closed head injury without loss of consciousness, Hand pain, right, Complicatedlaceration of hand Prescriptions: No Action metformin 500 MG tablet 500 mg PO BIDCM metoprolol tartrate 25 MG tablet 25 mg PO BID cholecalciferol (vitamin D3) [Vitamin D3] 2,000 UNIT capsule 2,000 unit PO DAILY aspirin 81 mg capsule 81 mg PO DAILY levothyroxine [Synthroid] 75 mcg tablet 75 mcg PO DAILY atorvastatin [Lipitor] 10 mg tablet 10 mg PO QHS lisinopril 10 mg tablet 10 mg PO DAILY tamsulosin 0.4 mg capsule 0.4 mg PO DAILY furosemide [Lasix] 40 mg tablet 20 mg PO DAILY Eliquis 5 mg tablet 5 mg PO BID Primary Care Provider: Billy Braga Referrals: Billy Braga DO [Primary Care Provider] - Activity Restrictions/Additional Instructions: Your CT scans did not show any acute broken bones, your x-ray of your hand, wrist and forearm did not show any acute broken bones either. Have your suturesremoved in approximately 7 days. Watch out for signs infection such as surrounding redness, purulent drainage if this is to occur return to the emergency department or follow-up with your physician in the outpatient setting. You may shower but do not soak your sutures do not scrub at them. Use Tylenol for pain control you can take something every 6 hours for pain max dose of Tylenol in 24 hours 4000 mg. Your tetanus shot was updated today. Return with worsening symptoms or any other concerns Print Language: Nigerian Disposition Disposition: Home, Self Care What to do if you have Problems For any increased pain, shortness of breath, bleeding, nausea or vomiting, chestpain, or any unexpected problems, contact your Primary Care Provider. Call [facility] ([phone]) or report to the closest Emergency Room. Call 911 if necessary. 07/03/25 0802 <Electronically signed by Mj Ngo DO> Cosigner Signature (if applicable): CC: Dr. Billy Braga, DO ~ Signed [facility] Work Phone: Evaluation noteNo assessment information available [facility] Work Phone: Hospital Discharge instructionsAdditional Instructions Your CT scans did not show any acute broken bones, your x-ray of your hand, wrist and forearm did not show any acute broken bones either. Have your sutures removed in approximately 7 days. Watch out for signs infection such as surrounding redness, purulent drainage if this is to occur return to the emergency department or follow-up with your physician in the outpatient setting. You may shower but do not soak your sutures do not scrub at them. Use Tylenol for pain control you can take something every 6 hours for pain max dose of Tylenol in 24 hours 4000 mg. Your tetanus shot was updated today. Return with worsening symptoms or any other [facility] Work Phone: Reason for referral (narrative)No reason for referral information availableWMercy Health St. [facility] Work Phone: Chief Complaint and Reason for Visit Chief Complaint SOB Chief Complaint Admit Date fall July 03, 2025 6:45am Family History Relationship Condition Age at Onset Recorded Date/T nathaly mother Malignant neoplasm Unknown father Heart failure Unknown Advance Directives Advance Directive Response Recorded Date/ Time Living Will No December 26, 2 023 3:35pm Power of Asbestos Abatement Technician No December 26, 2022 3:35pm Advance Directive Response Recorded Date/ Time Do you have a Healthcare Power of Asbestos Abatement Technician? Yes July 03, 2025 6:50am Summary Purpose Additional Source Comments Care Teams (unrecognized sec tion and content) Team Status: Active Member Role Status Dates Dr. Billy Braga DO Family Provider Active Dr. Billy Braga DO Primary Care Provider Active Team Status: Inactive Member Role Status Dates Dr. Billy Braga DO Primary Care Provider Active Dr. Sean Alford MD Emergency Provider Active Team Status: Active Member Role/Relationship Status Dates Dr. Billy Braga DO Primary Care Provider Active Team Status: Inactive Member Role/Relationship Status Dates Dr. Billy Braga DO Primary Care Provider Active Start: July 03, 2025 End: July 03, 2025 Dr. Mj Ngo DO Emergency Provider Active Start: July 03, 2025 End: July 03, 2025 Goals (unrecognized section and content) Goals may be documented in a n alternate sectionGoals may be documented in an alternate section (unrecognized sect ion and content) No Status Records Found INFORMATION SOURCE (unrecogn ized section and content) DATE CREATED AUTHOR 02/01/2023 [facility] FOR RECORDS PERTAINING TO PATIENTS WHO ARE [...] BE BASED ON THE PRIMARY CLINICAL RECORDS. [facility] [employer] [facility]. provides no warranty or guarantee of the accuracy or completeness of information in this document.
--- NOTE | 2025-07-04 04:13 | PCM.HP.STD ---
HPI - General General Date of Admission: 07/04/25 Date of Service: 07/04/25 Chief Complaint: Fall, LUE pain/shoulder pain. HPI Narrative The patient is a 80 y/o M w/ PMHx: PAF, Obesity, CAD s/p CABG x 1, Valvular Heart Disease s/p AVR, CKD stage II/III, Diabetes mellitus type II, HTN, HLD, Hypothyroidism, Chronic anemia, recent ED evaluation 07/03/2025 earlier in the morning following mechanical fall noting a been letting the dog out in the morning when he tripped over some boards landing on the concrete with no head trauma or loss of consciousness but he had a laceration to his right hand prompting ED evaluation at that time with laceration repaired with unremarkable plain film discharged to home now re-presenting to the [facility] ED on 07/04/2025 with another mechanical fall noting that he tripped going up 2 stairs landing on his left side with his hand outstretched with significant pain to the LUE/L shoulder following and debility following prompting ED return for evaluation. Workup in the ED included T97.7, heart rate 73, BP 142/72, respiratory rate 20, 92% on room air with most recent repeat vitals heart rate 68, BP 114/65, respiratory rate 20, 90% on room air, CBC with WC 10.1, hemoglobin 0.9, MCV 98.4, platelet 269 with left shift and lymphopenia, CMP with BUN/creatinine 25/1.17, GFR 64, glucose 195, T. bili 1.47 otherwise hepatic profile not marked appearing, CT brain with no acute intracranial findings with chronic stable findings, CT cervical spine with no newly developed vertebral fractures, structural collapse or dislocation, plain film of the left humerus and shoulder with an acute comminuted displaced fracture of the humeral surgical neck with overlying soft tissue edema and swelling. In the ED patient ministered morphine 4 mg IV x 1. Patient's upon arrival rating pain 10 out of 10 in severity. In the ED sling to the left upper extremity placed. ED discussed case with orthopedic surgeon Dr. Rivera who recommended sling with no acute surgical plans per ED report. [facility] Medical History (Updated 07/04/25 @ 04:[address] Amarilis Tillman MD) PAF (paroxysmal atrial fibrillation) Obesity Chronic anemia CAD (coronary artery disease) Hypothyroidism Diabetes mellitus type II, controlled HLD (hyperlipidemia) HTN (hypertension) Valvular heart disease Home Medications ?Medication ?Instructions ?Recorded ?Last Taken ?Type metformin 500 mg tablet 500 mg PO BIDCM DIABETES 02/21/18 02/21/18 History 500 MG metoprolol tartrate 25 mg tablet 25 mg PO BID BLOOD PRESSURE 02/21/18 02/21/18 History 25 MG cholecalciferol (vitamin D3) 50 2,000 unit PO DAILY 03/26/18 Unknown History mcg (2,000 unit) capsule (Vitamin D3) apixaban 5 mg tablet (Eliquis) 5 mg PO BID 07/03/25 Unknown History aspirin 81 mg capsule 81 mg PO DAILY 07/03/25 Unknown History atorvastatin 10 mg tablet (Lipitor) 10 mg PO QHS 07/03/25 Unknown History furosemide 40 mg tablet (Lasix) 20 mg PO DAILY 07/03/25 Unknown History levothyroxine 75 mcg tablet 75 mcg PO DAILY 07/03/25 Unknown History (Synthroid) lisinopril 10 mg tablet 10 mg PO DAILY 07/03/25 Unknown History tamsulosin 0.4 mg capsule 0.4 mg PO DAILY 07/03/25 Unknown History Allergy/AdvReac Type Severity Reaction Status Date / Time Penicillins Allergy Other Verified 07/03/25 06:45 Family History Mother Cancer Father Heart failure Surgical History History of tonsillectomy and adenoidectomy S/P AVR (aortic valve replacement) S/P CABG x 1 Social History household members: spouse Smoking Status: Never smoker alcohol intake: never substance use type: does not use ROS ROS Narrative Admission Review of Systems: CONSTITUTIONAL: No weight loss, fever, chills, + weakness or fatigue. HEENT: Eyes: No visual loss, blurred vision, double vision or yellow sclerae. Ears, Nose, Throat: No hearing loss, sneezing, congestion, runny nose or sore throat. SKIN: No rash or itching, lesions except + right hand with recent laceration repaired with dressing in place with no drainage, significant very stage ecchymoses and abrasion with recent fall with left-sided humeral neck fracture. CARDIOVASCULAR: No chest pain, chest pressure or chest discomfort, palpitations, edema, orthopnea, syncopal events. RESPIRATORY: No shortness of breath, cough or sputum, wheezing, hemoptysis. GASTROINTESTINAL: No anorexia, nausea, vomiting or diarrhea, abdominal pain, melena, BRBPR. GENITOURINARY: No dysuria, frequency, urgency or retention. NEUROLOGICAL: + Frequent falls. No headache, dizziness, syncope, paralysis, ataxia, numbness or tingling in the extremities, focal weakness, change in bowel or bladder control, seizure. MUSCULOSKELETAL: + muscle, back pain, joint pain or stiffness. HEMATOLOGIC: + Chronic anemia, easy bleeding/bruising. LYMPHATICS: No enlarged nodes. No history of splenectomy. PSYCHIATRIC: No history of depression or anxiety. ENDOCRINOLOGIC: No reports of sweating, cold or heat intolerance. No polyuria or polydipsia. ALLERGIES: No history of asthma, hives, eczema or rhinitis. Vital Signs Vital Signs Vital Signs: 07/04/25 01:17 07/04/25 01:20 07/04/25 02:55 Temperature 97.7 F L Temperature Source Oral Pulse Rate 73 68 Respiratory Rate 20 H 20 H Respiratory Effort Normal Non-Labored Respiratory Depth Normal Respiratory Pattern Normal Blood Pressure 142/72 H 114/65 Blood Pressure Mean 95 81 Pulse Ox 92 90 Oxygen Delivery Method Room Air Room Air Room Air Weight Weight: 281 lb 1.43 oz Body Mass Index (BMI) 39.2 Physical Exam Narrative Physical Examination: General: Awake, alert, oriented x 3 and cooperative, laying in ED bed, fatigued appearing, extremely hard of hearing. Skin: Normal color, normal turgor, no icterus, no cyanosis. HEENT: AT/NC, EOMI, PERRLA, mildly dry MM, no carotid bruits or JVD noted. Lungs: Mildly diminished, greater bases, distant, no obvious distress, appropriate effort, no rales, ronchi or wheezing. Heart: Regular rate and rhythm; no gallop, rub audible, s/p AVR. Abdomen: Soft, obese, NTTP, distant BS, difficult to discern distention HSM given habitus. Extremities: No cyanosis, no clubbing, status post mechanical fall earlier in the day the day prior with right hand with complex suturing with dressing in place with no drainage, left upper extremity status post fall with humeral neck fracture, left upper extremity pulses intact, able to move fingers, sensation appropriate. Neurological: Patient awake, alert, oriented as noted although very hard of hearing of note, cognitive function intact; pupils equally reactive to light and accommodation, cranial nerves grossly normal, moving all 4 extremities except expected limitation left upper extremity given fall with acute humeral neck fracture, strength accordingly moderately to severely globally decreased. Psychiatric: Affect appears fatigued, uncomfortable, no acute evidence of depressive or anxiety feelings. Results Lab / Micro Data 07/04/25 02:00 07/04/25 02:00 Labs: Laboratory Results - last 24 hr 07/04/25 02:00: WBC 10.1, RBC 3.78 L, Hgb 11.9 L, Hct 37.2 L, MCV 98.4 H, MCH 31.5, MCHC 32.0, RDW Std Deviation 49.6 H, RDW Coeff of Mukul 13.6, Plt Count 269, MPV 9.3, Immature Gran % (Auto) 0.900, Neut % (Auto) 79.6 H, Lymph % (Auto) 6.9 L, [place] % (Auto) 9.9, Eos % (Auto) 2.2, Baso % (Auto) 0.5, Absolute Neuts (auto) 8.1 H, Absolute Lymphs (auto) 0.70 L, Nucleated RBC % 0, Sodium 140, Potassium 4.3, Chloride 106, Carbon Dioxide 23.6, Anion Gap 11, BUN 25 H, Creatinine 1.17, Estim Creat Clear Calc 70.79, Est GFR (MDRD) Non-Af 64, BUN/Creatinine Ratio 21.7 H, Glucose 195 H, Calcium 9.1, Total Bilirubin 1.47 H, AST 24, ALT 19, Alkaline Phosphatase 129, Total Protein 6.5, Albumin 3.8, Globulin 2.7, Albumin/Globulin Ratio 1.4 Imaging Radiology Impression Brain CT 07/04/25 01:53 IMPRESSION: No intracerebral or extra axial hemorrhage. No acute cerebrovascular insult. If clinical symptoms persist, further evaluation with MRI may be considered as clinically warranted. Bilateral cerebral microvascular ischemic changes with mild brain involutional changes. stable [facility] Cervical Spine CT 07/04/25 01:53 IMPRESSION: No newly developed vertebral fractures, structural collapse or dislocation. Stable study findings as detailed. Reading Location: [id number] Humerus X-Ray 07/04/25 02:30 IMPRESSION: Acute comminuted displaced fractures of the humeral surgical neck. Overlying soft tissue edema and swelling. Reading Location: [id number] Shoulder X-Ray 07/04/25 02:30 IMPRESSION: Acute comminuted displaced fractures of the humeral surgical neck. Overlying soft tissue edema and swelling. Reading [facility] Assessment & Plan Assessment/Plan (1) Left humeral fracture: PLAN: Plan The patient is a 80 y/o M w/ PMHx: PAF, Obesity, CAD s/p CABG x 1, Valvular Heart Disease s/p AVR, CKD stage II/III, Diabetes mellitus type II, HTN, HLD, Hypothyroidism, Chronic anemia, recent ED evaluation 07/03/2025 earlier in the morning following mechanical fall noting a been letting the dog out in the morning when he tripped over some boards landing on the concrete with no head trauma or loss of consciousness but he had a laceration to his right hand prompting ED evaluation at that time with laceration repaired with unremarkable plain film discharged to home now re-presenting to the [facility] ED on 07/04/2025 with another mechanical fall noting that he tripped going up 2 stairs landing on his left side with his hand outstretched with significant pain to the LUE/L shoulder following and debility following prompting ED return for evaluation. #1. Mechanical fall with acute left comminuted displaced fractures of the humeral surgical neck with overlying soft tissue edema and swelling with significant debility, recurrent falls, adult failure to thrive: Will admit to medical surgical floor, maintain on fall precautions, will continue left upper extremity in the sling, nonweightbearing status, will continue orthopedic surgery consultation initiated per ED, will have oral and IV pain regimen as needed, PT/OT/case management consulted for discharge planning. #2. Chronic macrocytic anemia: Admission hemoglobin 11.9, MCV 98.4, baseline hemoglobin has vacillated primarily 12-13 range, will continue to trend CBC. #3. Chronic Kidney Disease Stage II/III, unclear subtype as has vacillated: Admission BUN/Cr 25/1.17, GFR 64 although previously has been consistent with stage III, unclear if these were acute presentations however, baseline renal function previously 1.4-1.8 but again unclear if these were acute presentation, repeat CMP in the a.m. to further elucidate patient's current renal function status. #4. Valvular heart disease: Status post aortic valve replacement at the same time as CABG x 1 at the [facility], no recent echocardiogram noted in Listen Edition system. #5. CAD: Status post CABG x 1, will continue aspirin, statin, metoprolol, lisinopril home regimen. Holding eliquis temporarily. #6. Diabetes mellitus type II: Hold oral home regimen, ADA diet, accu checks w/ ISS. #7. Hypertension: Continue home regimen including lisinopril, Lasix with hold parameters as needed, PRN hydralazine. #8. Hyperlipidemia: Will continue patient on statin therapy. #9. Hypothyroidism: Will continue patient on levothyroxine regimen. #10. Obesity: Weight loss and lifestyle changes encouraged. #11. PAF: Will continue patient home metoprolol, temporally holding Eliquis pending orthopedic surgery evaluation although at this time do not suspect any surgical intervention but just in case. #12. DVT prophylaxis: SCDs, will temporally hold Eliquis as noted. #13. CODE status: Patient ELI is his and living will is currently in place. Discussed CODE status at length including difference between FULL code, DNR-CCA and DNR-CC status. Following discussions about the differences in these status, requested Full Code status.. Charges/Coding Visit Charges Inpatient E&M: 39199 Init Hosp L3
--- OUTSIDE RECORDS SUMMARY | 2025-07-04 04:37 | XMS RPT_ITS | CCD ---
Author Organization [facility] CliniSyin Care Team Providers Care Communication Studies Professor Name Role Phone Billy Braga Primary Care Unavailable Adam Arana Attending Unavailable Billy Braga Referring Unavailable Billy Braga Primary Care Unavailable Sean Alford Attending Unavailable Billy Braga Primary Care Unavailable BRENDA TREVINO Attending Unavailable Billy Braga Primary Care Unavailable Kennedy Fung Attending Unavailable Dr. Billy Braga DO Primary Care Provider Dr. Mj Ngo DO Emergency Provider [phone] Allergies Allergy Classification Reported Allergen(s) Allergy Type Date of Onset Reaction(s) Facility (2 sources) Penicillins Allergy to substance 12-26-2022 Other [facility] (1 source) Penicillins Drug allergy (disorder) 12-26-2022 [facility] Repository Medications Current Medications Medication Drug Class(es) [...] 12 Lead EKGon 12-26-2022 12 Lead EKG [facility] Cardiovascular Services [address] [place] [address] 12 Lead EKG 12/26/22 1525 MR#: [id number] Acct: [id number] Name: KANDI GOMEZ Rep #: [id number] : 1945 77 From: Sean Moncada MD Attending Dr: Status: DEP ER Ordering Dr: Sena Alford MD Date: 12/26/22 Location: ED Sex: [...] Abnormal ECG Confirmed by ANTWAN RUSSO, SEAN ([id number]), television news video editor TEVIN KIRBY ([id number]) on 12/28/2022 9:44:56 AM Referred By: Confirmed By:SEAN MONCADA MD 12/28/22 0944 Date Sean Moncada MD CC: Dr. Billy Braga, DO; Dr. Sean Alford MD Signed Normal [facility] Absolute lymphocyte countOrd ered By: Dr. Alford on 12-26-2022 Lymphocytes Auto (Unsp spec) [#/Vol] 1.22 10*3/uL 0.83-4.51 [facility] BNP,B-Type NATRIURETIC PEPTI Peg 12-26-2022 Natriuretic peptide B (Bld) [Mass/Vol] 653.8 pg/mL High 0-100 [facility] Comment on above: Performed By: #### L 503.6620, L100.0100, L501.4020, L500.4050 #### [facility] Laboratory [address], [place], [id number] Basophil percentageOrdered B y: Dr. Alford on 12-26-2022 Basophils/100 WBC (Bld) 0.6 % 0-1 [facility] Bilirubin [Mass/Vol] 1.80 mg/dL 0.20-1.00 [facility] Comment on above: For patients on eltr ombopag therapy, use of Dimension [place] TBIL is not recommended. Chloride [Moles/Vol] 105 mmol/L 98-107 [facility] Eosinophils/100 WBC (Bld) 1.6 % 0-5 [facility] Glucose [Mass/Vol] 157 mg/dL 74-106 [facility] Comment on above: Fasting Glucose resu lt greater than or equal to 126 mg/dL suggests DIABETES MELLITUS per A.D.A. criteria. Neutrophils (Bld) [#/Vol] 7.4 10*3/uL 2.0-7.7 [facility] Neutrophils/100 WBC (Bld) 75.5 % 47-70 [facility] Potassium [Moles/Vol] 4.6 mmol/L 3.5-5.1 [facility] Protein [Mass/Vol] 7.2 g/dL 6.4-8.2 [facility] Sodium [Moles/Vol] 140 mmol/L 136-145 [facility] WBC (Bld) [#/Vol] 9.8 10*3/uL 4.4-11.0 [facility] Blood erythrocytes count (nu mber/volume)Ordered By: Dr. Alford on 12-26-2022 RBC (Bld) [#/Vol] 4.36 10*6/uL 4.6-6.2 [facility] Blood hemoglobin measurement (mass/volume)Ordered By: Dr. Alford on 12-26-2022 Hemoglobin (Bld) [Mass/Vol] 13.4 g/dL 13.0-16.5 [facility] Blood lymphocytes/100 leukoc ytesOrdered By: Dr. Alford on 12-26-2022 Lymphocytes/100 WBC (Bld) 12.5 % 19-41 [facility] Blood monocytes/100 leukocyt esOrdered By: Dr. Alford on 12-26-2022 Monocytes/100 WBC (Bld) 9.2 % 0-10 [facility] Blood platelet mean volumeOr dered By: Dr. Alford on 12-26-2022 Platelet mean volume (Bld) [Entitic vol] 9.9 fL 6.2-12.0 [facility] CBC W/Diff, Automatedon 11-30 Absolute Lymph 1.22 X10 3/uL Normal 0.83-4.51 [facility] Comment on above: Performed By: #### L 503.6620, L100.0100, L501.4020, L500.4050 #### [facility] Laboratory [facility] [address] [place], [place], [id number] Absolute Neut 7.4 X10 3/uL Normal 2.0-7.7 [facility] Comment on above: Performed By: #### L 503.6620, L100.0100, L501.4020, L500.4050 #### [facility] Laboratory [address] [place], [address] Basophils/100 WBC (Bld) 0.6 % Normal 0-1 [facility] Comment on above: Performed By: #### L 503.6620, L100.0100, L501.4020, L500.4050 #### [facility] Laboratory [address] [place], [address] Eosinophils/100 WBC (Bld) 1.6 % Normal 0-5 [facility] Comment on above: Performed By: #### L 503.6620, L100.0100, L501.4020, L500.4050 #### [facility] Laboratory [address] [place], [address] Erythrocyte distribution width (RBC) [Ratio] 14.5 % Normal 11.6-14.6 [facility] Comment on above: Performed By: #### L 503.6620, L100.0100, L501.4020, L500.4050 #### [facility] Laboratory [address] [place], [address] Hematocrit (Bld) [Volume fraction] 43.6 % Normal 40-54 [facility] Comment on above: Performed By: #### L 503.6620, L100.0100, L501.4020, L500.4050 #### [facility] Laboratory [address] [place], [address] Hemoglobin (Bld) [Mass/Vol] 13.4 g/dL Normal 13.0-16.5 [facility] Comment on above: Performed By: #### L 503.6620, L100.0100, L501.4020, L500.4050 #### [facility] Laboratory [address] [place], [address] IG% 0.600 Normal 0.0-0.9 [facility] Comment on above: Result Comment: IG% - Immature Granulocytes (promyelocytes, myelocytes and metamyelocytes) > 1% indicates that a LEFT SHIFT is Present. Performed By: #### L 503.6620, L100.0100, L501.4020, L500.4050 #### [facility] Laboratory [address] [place], [address] Lymphocytes/100 WBC (Bld) 12.5 % Low 19-41 [facility] Comment on above: Performed By: #### L 503.6620, L100.0100, L501.4020, L500.4050 #### [facility] Laboratory [address] [place], [address] MCH (RBC) [Entitic mass] 30.7 pg Normal 27.0-32.0 [facility] Comment on above: Performed By: #### L 503.6620, L100.0100, L501.4020, L500.4050 #### [facility] Laboratory [address] [place], [address] MCHC (RBC) [Mass/Vol] 30.7 g/dL Low 32-36 [facility] Comment on above: Performed By: #### L 503.6620, L100.0100, L501.4020, L500.4050 #### [facility] Laboratory [address] [place], [address] MCV (RBC) [Entitic vol] 100.0 fL High 80-94 [facility] Comment on above: Performed By: #### L 503.6620, L100.0100, L501.4020, L500.4050 #### [facility] Laboratory [address] [place], [address] Monocytes/100 WBC (Bld) 9.2 % Normal 0-10 [facility] Comment on above: Performed By: #### L 503.6620, L100.0100, L501.4020, L500.4050 #### [facility] Laboratory [address] [place], [address] Neutrophils/100 WBC (Bld) 75.5 % High 47-70 [facility] Comment on above: Performed By: #### L 503.6620, L100.0100, L501.4020, L500.4050 #### [facility] Laboratory [address] [place], [address] Nucleated RBC (Bld) [#/Vol] 0 10*3/uL Normal 0-5 [facility] Comment on above: Performed By: #### L 503.6620, L100.0100, L501.4020, L500.4050 #### [facility] Laboratory [address] [place], [address] Platelet mean volume (Bld) [Entitic vol] 9.9 fL Normal 6.2-12.0 [facility] Comment on above: Performed By: #### L 503.6620, L100.0100, L501.4020, L500.4050 #### [facility] Laboratory [address] [place], [address] Platelets (Bld) [#/Vol] 292 10*3/uL Normal 150-450 [facility] Comment on above: Performed By: #### L 503.6620, L100.0100, L501.4020, L500.4050 #### [facility] Laboratory [address] [place], [address] RBC (Bld) [#/Vol] 4.36 10*6/uL Low 4.6-6.2 [facility] Comment on above: Performed By: #### L 503.6620, L100.0100, L501.4020, L500.4050 #### [facility] Laboratory [address] [place], [address] RDW SD 52.6 fl High 35.1-43.9 [facility] Comment on above: Performed By: #### L 503.6620, L100.0100, L501.4020, L500.4050 #### [facility] Laboratory [address] [place], [address] WBC (Bld) [#/Vol] 9.8 10*3/uL Normal 4.4-11.0 [facility] Comment on above: Performed By: #### L 503.6620, L100.0100, L501.4020, L500.4050 #### [facility] Laboratory [address] [place], [address] COVID 19 AG RAPID (TOMAS Bruno)on 12-26-2022 [...] BinaxNow COVID19 Ag Card Normal [facility] Comment on above: Performed By: #### M 100.505 #### [facility] Laboratory [address] [place], [address] COVID-19 virus antigen assay Ordered By: Dr. Alford on 12-26-2022 SARS-CoV-2 (COVID-19) Ag IA.rapid Ql (Resp) [facility] Chest PA and Lateralon 12-26 Chest PA and Lateral [facility] Imaging Services [address] [place] [address] Chest PA and Lateral MR#: [id number] Acct: [id number] Name: KANDI GOMEZ Rep #: [id number] : 1945 M 77 From: Sean Borjas MD PCP: Dr. Billy Braga DO Status: REG ER Study: Chest PA and Lateral Date of Exam: 12/26/22 Exam# [id number] Ordering Dr: Sean Alford MD INDICATION: SOB [...] Billy Braga DO; Dr. Sean Alford MD Pool Table Operator: Signed Normal [facility] Comprehensive Metabolic Prof ilon 12-26-2022 Albumin [Mass/Vol] 3.8 g/dL Normal 3.2-5.0 [facility] Comment on above: Order Comment: 'TROP ' Serial specimen #1, #2 or #3: 1 Performed By: #### L 503.6620, L100.0100, L501.4020, L500.4058 #### [facility] Laboratory [address] [place], [place], [address] Albumin/Globulin [Mass ratio] 1.1 {ratio} Normal 0.9-2.4 [facility] Comment on above: Order Comment: 'TROP ' Serial specimen #1, #2 or #3: 1 Performed By: #### L 503.6620, L100.0100, L501.4020, L500.4050 #### [facility] Laboratory [address] [place], [address] ALK P 119 U/L High 45-117 [facility] Comment on above: Order Comment: 'TROP ' Serial specimen #1, #2 or #3: 1 Performed By: #### L 503.6620, L100.0100, L501.4020, L500.4050 #### [facility] Laboratory [address] [place], [address] ALT [Catalytic activity/Vol] 27 U/L Normal 16-61 [facility] Comment on above: Order Comment: 'TROP ' Serial specimen #1, #2 or #3: 1 Performed By: #### L 503.6620, L100.0100, L501.4020, L500.4050 #### [facility] Laboratory [address] [place], [address] AST [Catalytic activity/Vol] 19 U/L Normal 15-37 [facility] Comment on above: Order Comment: 'TROP ' Serial specimen #1, #2 or #3: 1 Performed By: #### L 503.6620, L100.0100, L501.4020, L500.4050 #### [facility] Laboratory [address] [place], [address] Bilirubin [Mass/Vol] 1.80 mg/dL High 0.20-1.00 [facility] Comment on above: Order Comment: 'TROP ' Serial specimen #1, #2 or #3: 1 Result Comment: For patients on eltrombopag therapy, use of Dimension [place] TBIL is not recommended. Performed By: #### L 503.6620, L100.0100, L501.4020, L500.4050 #### [facility] Laboratory [address] [place], [address] BUN/CRE 16.8 RATIO Normal 10-20 [facility] Comment on above: Order Comment: 'TROP ' Serial specimen #1, #2 or #3: 1 Performed By: #### L 503.6620, L100.0100, L501.4020, L500.4050 #### [facility] Laboratory [address] [place], [address] CA,Total 9.7 mg/dL Normal 8.5-10.1 [facility] Comment on above: Order Comment: 'TROP ' Serial specimen #1, #2 or #3: 1 Performed By: #### L 503.6620, L100.0100, L501.4020, L500.4050 #### [facility] Laboratory [address] [place], [address] Chloride [Moles/Vol] 105 mmol/L Normal 98-107 [facility] Comment on above: Order Comment: 'TROP ' Serial specimen #1, #2 or #3: 1 Performed By: #### L 503.6620, L100.0100, L501.4020, L500.4050 #### [facility] Laboratory [address] [place], [address] CO2 [Moles/Vol] 26.0 mmol/L Normal 21.0-32.0 [facility] Comment on above: Order Comment: 'TROP ' Serial specimen #1, #2 or #3: 1 Performed By: #### L 503.6620, L100.0100, L501.4020, L500.4050 #### [facility] Laboratory [address] [place], [address] Creatinine [Mass/Vol] 1.84 mg/dL High 0.70-1.30 [facility] Comment on above: Order Comment: 'TROP ' Serial specimen #1, #2 or #3: 1 Result Comment: The validity of the calculated GFR GFRAA in patients over 70 years has not been determined. Clinical correlation is essential. Performed By: #### L 503.6620, L100.0100, L501.4020, L500.4050 #### [facility] Laboratory [address] [place], [address] ECRCL 36.95 ml/min Normal [facility] Comment on above: Order Comment: 'TROP ' Serial specimen #1, #2 or #3: 1 Performed By: #### L 503.6620, L100.0100, L501.4020, L500.4050 #### [facility] Laboratory [address] [place], [address] EST GFR - AA 46 mL/min Low >60 [facility] Comment on above: Order Comment: 'TROP ' Serial specimen #1, #2 or #3: 1 Result Comment: Afri can [place] GFR Calc Performed By: #### L 503.6620, L100.0100, L501.4020, L500.4050 #### [facility] Laboratory [address] [place], [address] GAP 9 Normal 5-15 [facility] Comment on above: Order Comment: 'TROP ' Serial specimen #1, #2 or #3: 1 Performed By: #### L 503.6620, L100.0100, L501.4020, L500.4050 #### [facility] Laboratory [address] [place], [address] GFR/1.73 sq M.predicted among non-blacks MDRD (S/P/Bld) [Vol rate/Area] 38 mL/min/{1.73_m2} Low >60 [facility] Comment on above: Order Comment: 'TROP ' Serial specimen #1, #2 or #3: 1 Result Comment: Non- GFR Calc Performed By: #### L 503.6620, L100.0100, L501.4020, L500.4050 #### [facility] Laboratory [address] [place], [address] Globulin (S) [Mass/Vol] 3.4 g/dL Normal 2.2-4.[address] [facility] Comment on above: Order Comment: 'TROP ' Serial specimen #1, #2 or #3: 1 Performed By: #### L 503.6620, L100.0100, L501.4020, L500.4050 #### [facility] Laboratory [address] [place], [address] Glucose [Mass/Vol] 157 mg/dL High 74-106 [facility] Comment on above: Order Comment: 'TROP ' Serial specimen #1, #2 or #3: 1 Result Comment: Fast ing Glucose result greater than or equal to 126 mg/dL suggests DIABETES MELLITUS per A.D.A. criteria. Performed By: #### L 503.6620, L100.0100, L501.4020, L500.4050 #### [facility] Laboratory [address] [place], [address] Potassium [Moles/Vol] 4.6 mmol/L Normal 3.5-5.1 [facility] Comment on above: Order Comment: 'TROP ' Serial specimen #1, #2 or #3: 1 Performed By: #### L 503.6620, L100.0100, L501.4020, L500.4050 #### [facility] Laboratory [address] [place], [address] Sodium [Moles/Vol] 140 mmol/L Normal 136-145 [facility] Comment on above: Order Comment: 'TROP ' Serial specimen #1, #2 or #3: 1 Performed By: #### L 503.6620, L100.0100, L501.4020, L500.4050 #### [facility] Laboratory [address] [place], [address] T PROT 7.2 g/dL Normal 6.4-8.2 [facility] Comment on above: Order Comment: 'TROP ' Serial specimen #1, #2 or #3: 1 Performed By: #### L 503.6620, L100.0100, L501.4020, L500.4050 #### [facility] Laboratory [address] [place], [address] Urea nitrogen [Mass/Vol] 31 mg/dL High 7-18 [facility] Comment on above: Order Comment: 'TROP ' Serial specimen #1, #2 or #3: 1 Performed By: #### L 503.6620, L100.0100, L501.4020, L500.4050 #### [facility] Laboratory [address] [place], [address] Determination of erythrocyte mean corpuscular volume (MCV)Ordered By: Dr. Alford on 12-26-2022 MCV (RBC) [Entitic vol] 100.0 fL 80-94 [facility] Emergency Department Summary on 12-26-2022 Emergency Department Summary [facility] Medical Records Department [address] [place] [address] Emergency Department Summary 12/26/22 MR#: [id number] Acct: [id number] Name: KANDI GOMEZ Rep #: [id number] : 1945 77 From: Sean Alford MD [...] normal stools. He is denying chest pain. [facility] Medical History (Updated 12/26/22 @ 17:21 by [...] (Updated 03/26/18 @ 10:44 by Mendoza Shaffer, MANAGER EPIC, PALLET ASSEMBLER, BS) Mother Cancer Father Heart failure Surgical [...] (more content not included)... Normal [facility] Hematocrit Auto (Bld) [Volum e fraction]Ordered By: Dr. Alford on 12-26-2022 Hematocrit (Bld) [Volume fraction] 43.6 % 40-54 [facility] L501.4020on 12-26-2022 TROPONIN-I HS 8 pg/mL Normal 3.0-78.0 [facility] Comment on above: Order Comment: 'TROP ' Serial specimen #1, #2 or #3: 1 Result Comment: Plea se Note: New Test Units and Gender Specific Reference Ranges. For more information see Policy Stat Procedure [place] High Sensitivity Troponin (TNIH) and attachments. Performed By: #### L 503.6620, L100.0100, L501.4020, L500.4050 #### [facility] Laboratory [address] [place], [address] Laboratory - Chemistry and C hemistry - challengeOrdered By: Dr. Alford on 12-26-2022 ALP [Catalytic activity/Vol] 119 U/L 45-117 [facility] ALT [Catalytic activity/Vol] 27 U/L 16-61 [facility] CO2 [Moles/Vol] 26.0 mmol/L 21.0-32.0 [facility] Globulin (S) [Mass/Vol] 3.4 g/dL 2.2-4.2 [facility] Natriuretic peptide B (Bld) [Mass/Vol] 653.8 pg/mL 0-100 [facility] Urea nitrogen/Creatinine [Mass ratio] 16.8 mg/mg 10-20 [facility] Laboratory - Hematology and Cell countsOrdered By: Dr. Alford on 12-26-2022 Erythrocyte distribution width (RBC) [Entitic vol] 52.6 fL 35.1-43.9 [facility] Erythrocyte distribution width (RBC) [Ratio] 14.5 % 11.6-14.6 [facility] Immature granulocytes/100 WBC (Bld) 0.600 % 0.0-0.9 [facility] Comment on above: IG% - Immature Granu locytes (promyelocytes, myelocytes and metamyelocytes) > 1% indicates that a LEFT SHIFT is Present. MCH (RBC) [Entitic mass] 30.7 pg 27.0-32.0 [facility] Nucleated RBC/100 WBC (Bld) [Ratio] 0 % 0-5 [facility] MCHC Auto (RBC) [Mass/Vol]Or dered By: Dr. Alford on 12-26-2022 MCHC (RBC) [Mass/Vol] 30.7 g/dL 32-36 [facility] No Panel InformationOrdered By: Dr. Alford on 12-26-2022 Estimated Creatinine Clearance Calc 36.95 ml/min [facility] Estimated GFR (MDRD) Amer 46 mL/min >60 [facility] Comment on above: GFR Calc Estimated GFR (MDRD) Non-Af Amer 38 mL/min >60 [facility] Comment on above: Non- GFR Calc Troponin I High Sensitivity 8 pg/mL 3.0-78.0 [facility] Comment on above: Please Note: New Carmen t Units and Gender Specific Reference Ranges. For more information see Policy Stat Procedure [place] High Sensitivity Troponin (TNIH) and attachments. Platelets bldOrdered By: Dr. Alford on 12-26-2022 Platelets (Bld) [#/Vol] 292 10*3/uL 150-450 [facility] Serum or plasma albumin sheldon urement (mass/volume)Ordered By: Dr. Alford on 12-26-2022 Albumin [Mass/Vol] 3.8 g/dL 3.2-5.0 [facility] Serum or plasma albumin/glob ulin mass ratioOrdered By: Dr. Alford on 12-26-2022 Albumin/Globulin [Mass ratio] 1.1 {ratio} 0.9-2.4 [facility] Serum or plasma calcium sheldon urement (mass/volume)Ordered By: Dr. Alford on 12-26-2022 Calcium [Mass/Vol] 9.7 mg/dL 8.5-10.1 [facility] Serum or plasma creatinine m easurement (mass/volume)Ordered By: Dr. Alford on 12-26-2022 Creatinine [Mass/Vol] 1.84 mg/dL 0.70-1.30 [facility] Comment on above: The validity of the calculated GFR & GFRAA in patients over 70 years has not been determined. Clinical correlation is essential. Serum or plasma urea nitroge n measurement (mass/volume)Ordered By: Dr. Alford on 12-26-2022 Urea nitrogen [Mass/Vol] 31 mg/dL 7-18 [facility] Thin prep Papanicolaou smear with manual screeningOrdered By: Dr. Alford on 12-26-2022 Thin prep Papanicolaou smear with manual screening 19 U/L 15-37 [facility] Thin prep Papanicolaou smear with manual screening 9 5-15 [facility] Knee 4 or More Viewson 03-01 Knee 4 or More Views [facility] Radiology [address] [place] [address] Knee 4 or More Views MR#: [id number] Acct: [id number] Name: KANDI GOMEZ Rep #: [id number] : 1945 M 76 From: Eleazar Tinoco MD PCP: Dr. Billy Braga DO Status: DEP AMB Study: Knee 4 or More Views Date of Exam: 03/01/22 Exam# [id number] Ordering Dr: Adam Ribeiro STUDY: X-RAY - [...] CC: TISHA Ribeiro; Dr. Billy Braga DO Pool Table Operator: Signed Normal [facility] Orthopedic Visit Reporton Orthopedic Visit Report [facility] Orthopa[facility] Sports Medicine [address] [place] [address] OFFICE VISIT Date of Service: 03/01/22 MR#: [id number] Acct: [id number] Name: KANDI GMOEZ Rep #: [id number] : 1945 Provider: TISHA Ribeiro Age/Sex: 76/M Location: [facility] [facility] Status: Signed Intake Vital Signs 03/01/22 11:08 [...] 03/26/18 @ 10:43 by Mendoza Shaffer CRT, PALLET ASSEMBLER, BS) History of tonsillectomy and adenoidectomy S/P [...] (more content not included)... Normal [facility] Vital Signs Date Time Vital Sign Value Performing Clinician Max morelos 07-03-2025 08:03-0400 Body temperature 97.9 [degF] Dr. Billy Braga DO Work Phone: [facility] 07-03-2025 08:03-0400 Diastolic blood pressure 69 mm[Hg] Dr. Billy Braga DO Work Phone: [facility] 07-03-2025 08:03-0400 Heart rate 67 /min Dr. Billy Braga DO Work Phone: [facility] 07-03-2025 08:03-0400 Respiratory rate 16 /min Dr. Billy Braga DO Work Phone: [facility] 07-03-2025 08:03-0400 SaO2% (BldA) [Mass fraction] 97 % Dr. Billy Braga DO Work Phone: [facility] 07-03-2025 08:03-0400 Systolic blood pressure 151 mm[Hg] Dr. Billy Braga DO Work Phone: [facility] 07-03-2025 06:45-0400 Body height 180.[address] Billy Braga DO Work Phone: [facility] 07-03-2025 06:45-0400 Body mass index (BMI) [Ratio] 37.7 kg/m2 Dr. Billy Braga DO Work Phone: [facility] 07-03-2025 06:45-0400 Body weight 122.[address] Billy Braga DO Work Phone: [facility] 12-26-2022 17:42-0500 Body temperature 98 [degF] [facility] 12-26-2022 17:42-0500 Diastolic blood pressure 88 mm[Hg] [facility] 12-26-2022 17:42-0500 Heart rate 67 /min [facility] 12-26-2022 17:42-0500 Respiratory rate 18 /min [facility] 12-26-2022 17:42-0500 SaO2% (BldA) [Mass fraction] 92 % [facility] 12-26-2022 17:42-0500 Systolic blood pressure 123 mm[Hg] [facility] 12-26-2022 15:22-0500 Body height 180.34 cm [facility] 12-26-2022 15:22-0500 Body mass index (BMI) [Ratio] 38.1 kg/m2 [facility] 12-26-2022 15:22-0500 Body weight 124.1 kg [facility] Encounters Encounter Date Encounter Type Care Provider Facility Start: 07-03-2025 End: 07-03-2025 Emergency department patient visit Dr. Billy Braga DO Work Phone: -Emergency Department Work Phone: Start: 02-02-2023 ambulatory Billy Maria Luz Facility: [facility] Start: 12-26-2022 End: 12-26-2022 Emergency department patient visit [facility] Facility:[facility] Start: 12-26-2022 End: 12-26-2022 Emergency department patient visit [facility]-Emergency Department Start: 03-01-2022 End: 03-01-2022 ambulatory [facility] Facility:[facility] Procedures Date Procedure Procedure Detail Performing [...] Date Care Activity Detail Author Start: 07-03-2025 [facility] Patient Education What Is Heart Failure [facility] Work Phone: Patient referral [facility] Work Phone: Immunizations Immunization Date Immunization Notes Care Provider Fa cility 07-03-2025 tetanus toxoid, redu pj diphtheria toxoid, and acellular pertussis vaccine, adsorbed Dr. Billy Braga DO Work Phone: [facility] 04-21-2019 tetanus toxoid, redu pj diphtheria toxoid, and acellular pertussis vaccine, adsorbed [facility] Payers Date Payer Category Payer Unknown [id number] 2022 Self-pay [id number] 2022 Medicare [id number] Self-pay [id number] 51 Unknown [id number] Unknown [id number] Unknown [id number] [id number] [id number] Unknown [id number] [id number] [id number] Unknown [id number] 2.16.8 [id number] Social History Date Type Detail Facility Start: [facility]-26-2022 [facility] Start: 1945 Sex Assigned At Male [facility] Start: 07-03-2025 [facility] Never [facility] (finding) [facility] Clinical Notes 12-26-2022 to 07-03-2025 Note Date & Type Note Facility 07-03-2025 Discharge summary [facility] 07-03-2025 Radiology Diagnostic study note [facility] Imaging Services [address] [place] [address] Hand Min 3 Views MR#: [id number] Acct: [id number] Name: KANDI GOMEZ Rep #: [id number] : 1945 M 80 From: Barbara Palomino MD PCP: Dr. Billy Braga DO Status: REG ER Study:Hand Min 3 Views Date of Exam: 03/22 Exam# [id number] Ordering Dr: Damion Ngo DO PROCEDURE: HAND MIN 3 VIEWS 07/03/2025 REASON FOR EXAM: FALL, HAND LAC BASE OF 5TH TECHNIQUE: Procedure Code: GINNA Modality: DX Procedure: HAND MIN 3 VIEWS Laterality: COMPARISON: None ORDER #: RAD/Hand Min 3 Views IMPRESSION: No acute fracture or dislocations. Scattered mild degenerative changes. Mild soft tissue edema/contusion. No radiographic foreign body. Reading Location: [facility] CC: Dr. Billy Braga DO; Dr. Mj Ngo DO ~ Pool Table Operator: Signed [facility] 07-03-2025 Radiology Diagnostic study note [facility] Imaging Services [facility] [place], [place] [id number] Wrist min 3 Views MR#: [id number] Acct: [id number] Name: KANDI GOMEZ Rep #: [id number] : 1945 M 80 From: Barbara Palomino MD PCP: Dr. Billy Braga DO Status: REG ER Study:Wrist min 3 Views Date of Exam: Exam# [id number] Ordering Dr: Damion Ngo DO PROCEDURE: WRIST MIN 3 VIEWS 07/03/2025 REASON FOR EXAM: FALL TECHNIQUE: Procedure Code: RADWR Modality: DX Procedure: WRIST MIN 3 VIEWS COMPARISON: None RAD/Wrist min 3 Views IMPRESSION: No acute fracture or dislocations. Scattered mild degenerative changes. No acute soft tissue abnormalities. No radiographic foreign body. Reading Location: [facility] CC: Dr. Billy Braga DO; Dr. Mj Ngo DO ~ Pool Table Operator: Signed [facility] 07-03-2025 Radiology Diagnostic study note [facility] Imaging Services [address] [place], [place] [id number] Forearm 2 Views MR#: [id number] Acct: [id number] Name: KANDI GOMEZ Rep #: [id number] : 1945 M 80 From: Barbara Palomino MD PCP: Dr. Billy Braga DO Status: REG ER Study:Forearm 2 Views Date of Exam: 03/22 Exam# [id number] Ordering Dr: Damion Ngo DO PROCEDURE: FOREARM 2 VIEWS 07/03/2025 REASON FOR EXAM: FALL TECHNIQUE: Procedure Code: RADFA Modality: DX Procedure: FOREARM 2 VIEWS COMPARISON: None RAD/Forearm 2 Views IMPRESSION: No acute fracture or dislocations. Scattered mild degenerative changes. No acute soft tissue abnormalities. No radiographic foreign body. Reading Location: [facility] CC: Dr. Billy Braga DO; Dr. Mj Ngo DO ~ Pool Table Operator: Signed [facility] 07-03-2025 Radiology Diagnostic study note [facility] Imaging Services [address] [place] [address] Spine Cervical without Contras MR#: [id number] Acct: [id number] Name: KADNI GOMEZ Rep #: [id number] : 1945 M 80 From: Barbara Palomino MD PCP: Dr. Billy Braga DO Status: REG ER Study:Spine Cervical without Contras Date of Exam: 07/03/25 Exam# [id number] Ordering Dr: Damion Ngo DO PROCEDURE: SPINE [...] stenosis most prominent at C6-C7. Reading Location: [facility] CC: Dr. Billy Braga DO; Dr. Mj Ngo DO ~ Pool Table Operator: Signed [facility] 07-03-2025 Radiology Diagnostic study note [facility] Imaging Services [address] [place] [address] Brain/Head without Contrast MR#: [id number] Acct: [id number] Name: KANDI GOMEZ Rep #: [id number] : 1945 M 80 From: Barbara Palomino MD PCP: Dr. Billy Braga DO Status: REG ER Study:Brain/Head without Contrast Date of Exa m: 07/03/25 Exam# [id number] Ordering Dr: Damion Ngo DO PROCEDURE: BRAIN/HEAD [...] IMPRESSION: No acute intracranial process. Reading Location: [id number] CC: Dr. Billy Braga DO; Dr. Mj Ngo DO ~ Pool Table Operator: Signed [facility] 12-26-2022 Discharge summary Note Date/Time December 26, 2022 3:41pm [facility] Medical Records Department [address] [place] [address] Emergency Department Summary 12/26/22 MR#: [id number] Acct: [id number] Name: KANDI GOMEZ Rep #:[id number] : 1945 77 From: Sean Alford MD [...] normal stools. He is denying chest pain. [facility] Medical History (Updated 12/26/22 @ 17:21 by [...] (Updated 03/26/18 @ 10:44 by Mendoza Shaffer, MANAGER EPIC, PALLET ASSEMBLER, BS) Mother Cancer Father Heart failure Surgical [...] 75.5 H Lymph % (Auto) 12.5 L Dent % (Auto) 9.2 Eos % (Auto) 1.6 [...] 16:18 EST Reading Location ID and State: [facility] / [place] Tel , Service support , EKG Initial EKG: Comments: Sinus rhythm with a rate of 69. Normal HI and QTc intervals. No ischemic changes. Interpreted [...] This was 5 [address] he has not had an echocardiogram since [...] your Primary Care Provider. Call [facility] ([phone]) or report to the closest Emergency Room. Call 911 if necessary. 12/26/22 1723 <Electronically signed by Sean Alford MD> Cosigner Signature (if applicable): CC: Dr. Billy Braga DO ~ Signed [facility] Work Phone: Discharge summary Author Mj Ngo [facility] Note Date/Time July 03, 2025 8:02am [facility] Medical Records Department [address] [place] [address] Emergency Department Summary 07/03/25 MR#: [id number] Acct: [id number] Name: KANDI GOMEZ Rep #:[id number] : 1945 80 From: Mj Ngo DO [...] of right hand pain and a cut. [facility] Medical History Tonsil and adenoid disease, chronic Hernia Coronary atherosclerosis due to severely calcified coronary lesion Home Medications ?Medication ?Instructions ?Recorded ?Last Taken ?Type metformin 500 mg tablet 500 mg PO BIDCM DIABETES 02/21/18 History 500 MG metoprolol tartrate 25 mg tablet 25 mg PO BID BLOOD HI ESSURE 02/21/18 02/21/18 History 25 MG cholecalciferol [...] IMPRESSION: No acute intracranial process. 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 Possible fracture of the anterior osteophyte at C4. No other acute compression deformity, fracture, or subluxation. Moderate multilevel degenerative changes of the cervical spine with moderate central canal stenosis most prominent at C6-C7. Reading Location: [facility] Forearm X-Ray 07/03/25 07:11 IMPRESSION: No acute fracture or dislocations. Scattered mild degenerative changes. No acute soft tissue abnormalities. No radiographic foreign body. Reading Location: [facility] Hand X-Ray 07/03/25 07:11 IMPRESSION: No acute fracture or dislocations. Scattered mild degenerative changes. Mild soft tissue edema/contusion. No radiographic foreign body. Reading Location: [facility] Wrist X-Ray 07/03/25 07:11 IMPRESSION: No acute fracture or dislocations. Scattered mild degenerative changes. No acute soft tissue abnormalities. No radiographic foreign body. Reading Location: [facility] Discharge Plan Triage Chief Complaint: Fall ED [...] symptoms or any other concerns Print Language: Guyanese Disposition Disposition: Home, Self Care What to do if you have Problems For any increased pain, shortness of breath, bleeding, nausea or vomiting, chestpain, or any unexpected problems, contact your Primary Care Provider. Call [facility] ([phone]) or report to the closest Emergency Room. Call 911 if necessary. 07/03/25 0802 <Electronically signed by Mj Ngo DO> Cosigner Signature (if applicable): CC: Dr. Billy Braga, DO ~ Signed [facility] Work Phone: Evaluation noteNo assessment information available [facility] Work Phone: Hospital Discharge instructionsAdditional Instructions Your [...] [facility] with worsening [facility] any [facility] Work Phone: Reason for referral (narrative)No reason for referral information availableWPrem[facility] Work Phone: Chief Complaint and Reason for Visit Chief Complaint SOB Chief Complaint Admit Date fall July 03, 2025 6:45am Family History Relationship Condition Age at Onset Recorded Date/T nathaly mother Malignant neoplasm Unknown father Heart failure Unknown Advance Directives Advance Directive Response Recorded Date/ Time Living Will No December 26, 2 023 3:35pm Power of Compliance Field Technician No December 26, 2022 3:35pm Advance Directive Response Recorded Date/ Time Do you have a Healthcare Power of Compliance Field Technician? Yes July 03, 2025 6:50am Summary [...] section and content) DATE CREATED AUTHOR 02/01/2023 [facility] FOR RECORDS PERTAINING TO PATIENTS WHO [...] BE BASED ON THE PRIMARY CLINICAL RECORDS. [facility] [employer] [facility]. provides no warranty or guarantee of the accuracy or completeness of information in this document.
--- NOTE | 2025-07-04 05:44 | PCA ---
Attempted to call [facility] bed [facility] to provide pt information about admittance as pt has [facility] benefits, unable to reach anyone and unable to leave confidential voicemail.
[2025-07-04 05:52] LABS: Magnesium 1.8 mg/dL (1.5-2.2)
[2025-07-04] MEDS: 0.9% Normal Saline (1000mL) 1,000 ML 100 ML IV (06:34)
[2025-07-04] MEDS: 0.9% Saline Lock 10 ML Syringe IV ×2 (06:35→21:21)
--- NOTE | 2025-07-04 07:18 | PN.HOSP_ITS ---
Reason for Visit Chief Complaint: Fall, LUE pain/shoulder pain. Subjective Subjective Patient is a 80-year-old male who presented to the hospital after falling while going up a flight of stairs landing on his left shoulder with subsequent pain imaging studies obtained on admission demonstrated left comminuted displaced fractures of the humeral surgical neck with overlying soft tissue edema. Admitted to the regular nursing floor for further management Objective Data Objective Data Vital Signs: Vital Signs Temp Pulse Resp BP Pulse Ox O2 Del Method O2 Flow Rate 97.7 F L 67 20 H 125/67 H 97 Nasal Cannula 2 07/04/25 05:35 07/04/25 05:35 07/04/25 05:35 07/04/25 05:35 07/04/25 05:35 07/04/25 05:41 07/04/25 05:41 Oxygen Flow Rate (L/min) 2 Oxygen Delivery Method Nasal Cannula Weight: 118.558 kg Body Mass Index (BMI) 38.5 Lab / Micro Data 07/04/25 02:00 07/04/25 02:00 Labs: Laboratory Results - last 24 hr 07/04/25 02:00: WBC 10.1, RBC 3.78 L, Hgb 11.9 L, Hct 37.2 L, MCV 98.4 H, MCH 31.5, MCHC 32.0, RDW Std Deviation 49.6 H, RDW Coeff of Mukul 13.6, Plt Count 269, MPV 9.3, Immature Gran % (Auto) 0.900, Neut % (Auto) 79.6 H, Lymph % (Auto) 6.9 L, Taliaferro % (Auto) 9.9, Eos % (Auto) 2.2, Baso % (Auto) 0.5, Absolute Neuts (auto) 8.1 H, Absolute Lymphs (auto) 0.70 L, Nucleated RBC % 0, Sodium 140, Potassium 4.3, Chloride 106, Carbon Dioxide 23.6, Anion Gap 11, BUN 25 H, Creatinine 1.17, Estim Creat Clear Calc 70.79, Est GFR (MDRD) Non-Af 64, BUN/Creatinine Ratio 21.7 H, Glucose 195 H, Calcium 9.1, Magnesium 1.8, Total Bilirubin 1.47 H, AST 24, ALT 19, Alkaline Phosphatase 129, Total Protein 6.5, Albumin 3.8, Globulin 2.7, Albumin/Globulin Ratio 1.4 07/04/25 06:39: POC Glucose 171 H Radiography Diagnostic Testing: Radiology Impression Brain CT 07/04/25 01:53 IMPRESSION: No intracerebral or extra axial hemorrhage. No acute cerebrovascular insult. If clinical symptoms persist, further evaluation with MRI may be considered as clinically warranted. Bilateral cerebral microvascular ischemic changes with mild brain involutional changes. stable Reading Location: [place] [address] 07/04/25 01:53 IMPRESSION: No newly developed vertebral fractures, structural collapse or dislocation. Stable study findings as detailed. Reading Location: [place] [address] Humerus X-Ray 07/04/25 02:30 IMPRESSION: Acute comminuted displaced fractures of the humeral surgical neck. Overlying soft tissue edema and swelling. Reading Location: [place] [address] Shoulder X-Ray 07/04/25 02:30 IMPRESSION: Acute comminuted displaced fractures of the humeral surgical neck. Overlying soft tissue edema and swelling. Reading Location: [place] [address] Physical Exam Narrative GENERAL: cooperative HEENT: Atraumatic; normocephalic EYES; Anicteric, Normal Conjunctiva NECK; supple, normal thyroid, RESPIRATORY: Diminished to auscultation CARDIOVASCULAR: Regular S1 S2, GI: soft, normoactive bowel sounds, : No Renal angle tenderness; EXTREMITIES: No edema, no clubbing, MUSCULOSKELETAL: Left shoulder immobilized NEURO: Awake; no lateralizing signs. SKIN: No Rash PSYCH; Flat affect Assessment & Plan Assessment/Plan (1) Left humeral fracture: QUALIFIERS: Encounter type: initial encounter Humerus Location: s urgical neck Fracture type: closed Fracture morphology: 2-part Fracture alignment: displaced Qualified Code(s): S42.222A - 2-part displaced fracture of surgical neck of left humerus, initial encounter for closed fracture PLAN: Plan Patient is a 80-year-old male who presented to the hospital after falling while going up a flight of stairs landing on his left shoulder with subsequent pain imaging studies obtained on admission demonstrated left comminuted displaced fractures of the humeral surgical neck with overlying soft tissue edema. Admitted to the regular nursing floor for further management 1. Nonsyncopal fall with left arm pain Imaging studies obtained on admission demonstrated Acute comminuted displaced fractures of the humeral surgical neck, with Overlying soft tissue edema and swelling. Patient admitted to regular nursing floor for pain management consult placed Ortho on admission 2. Anemia ? Secondary to chronic disorder monitoring H&H and transfuse if patient becomes symptomatic or hemoglobin falls below 7 3. Coronary artery disease ? Status post CABG. Patient is on guideline directed medical therapy 4. Paroxysmal atrial fibrillation ? Rate controlled on systemic anticoagulation with apixaban 5. Hypertension ? Blood pressure controlled, home medications continued with dose adjustment as needed 6. Diabetes mellitus type II -patient's oral hypoglycemics held. Placed on Accu-Cheks a.c. and at bedtime and covered with sliding scale insulin 7. Hypothyroidism ? Patient is on levothyroxine home dose continued 8. Class II obesity with BMI of 38.6 ? Complicating care weight loss advised 9. Valvular heart disease ? With history of aortic valve replacement 10. DVT prophylaxis ? Patient is on apixaban which was held given patient injury Time spent in the patient's overall evaluation,decision-making process, review of diagnostic data, adjustment of management, discussion with other providers, nursing nursing and ancillary staff involved in patient's care documentation, 40 Minutes Charges/Coding Visit Charges Inpatient E&M: 13301 Subs Hosp L2
--- NOTE | 2025-07-04 09:30 | CONS.ORTHO ---
HPI Consult Data Date of Consult: 07/04/25 HPI Narrative HPI Narrative: KANDI GOMEZ, is a 80 M who presents with L proximal humerus fracture after multiple falls. [facility] Medical History (Updated 07/04/25 @ 08:[address] Tigre Figueroa MD) PAF (paroxysmal atrial fibrillation) Obesity Chronic anemia CAD (coronary artery disease) Hypothyroidism Diabetes mellitus type II, controlled HLD (hyperlipidemia) HTN (hypertension) Valvular heart disease Home Medications ?Medication ?Instructions ?Recorded ?Last Taken ?Type metformin 500 mg tablet 500 mg PO DAILY DIABETES 02/21/18 02/21/18 History 500 MG metoprolol tartrate 25 mg tablet 25 mg PO BID BLOOD PRESSURE 02/21/18 02/21/18 History 25 MG cholecalciferol (vitamin D3) 50 2,000 unit PO DAILY 03/26/18 Unknown History mcg (2,000 unit) capsule (Vitamin D3) apixaban 5 mg tablet (Eliquis) 5 mg PO BID 07/03/25 Unknown History aspirin 81 mg capsule 81 mg PO DAILY 07/03/25 Unknown History atorvastatin 10 mg tablet (Lipitor) 10 mg PO QHS 07/03/25 Unknown History furosemide 40 mg tablet (Lasix) 20 mg PO DAILY 07/03/25 Unknown History levothyroxine 75 mcg tablet 75 mcg PO DAILY 07/03/25 Unknown History (Synthroid) lisinopril 10 mg tablet 5 mg PO DAILY 07/03/25 Unknown History tamsulosin 0.4 mg capsule 0.4 mg PO DAILY 07/03/25 Unknown History amlodipine 2.5 mg tablet 2.5 mg PO DAILY 07/04/25 Unknown History Allergy/AdvReac Type Severity Reaction Status Date / Time Penicillins Allergy Other Verified 07/03/25 06:45 Family History Mother Cancer Father Heart failure Surgical History History of tonsillectomy and adenoidectomy S/P AVR (aortic valve replacement) S/P CABG x 1 Social History household members: spouse Smoking Status: Never smoker alcohol intake: never substance use type: does not use Vital Signs Vital Signs Vital Signs: 07/04/25 01:17 07/04/25 01:20 07/04/25 02:55 Temperature 97.7 F L Temperature Source Oral Pulse Rate 73 68 Respiratory Rate 20 H 20 H Respiratory Effort Normal Non-Labored Respiratory Depth Normal Respiratory Pattern Normal Blood Pressure 142/72 H 114/65 Blood Pressure Mean 95 81 Blood Pressure Source Blood Pressure Position Blood Pressure Location Pulse Ox 92 90 Oxygen Delivery Method Room Air Room Air Room Air Oxygen Flow Rate (L/min) 07/04/25 04:00 07/04/25 04:37 07/04/25 05:35 Temperature 97.6 F L 97.7 F L Temperature Source Oral Pulse Rate 60 58 L 67 Respiratory Rate 14 15 20 H Respiratory Effort Respiratory Depth Respiratory Pattern Blood Pressure 125/70 H 108/54 L 125/67 H Blood Pressure Mean 88 72 86 Blood Pressure Source Monitor Blood Pressure Position Semi-Fowlers Blood Pressure Location Right Arm Pulse Ox 94 93 97 Oxygen Delivery Method Room Air Nasal Cannula Oxygen Flow Rate (L/min) 2 07/04/25 05:41 07/04/25 07:58 07/04/25 09:00 Temperature Temperature Source Pulse Rate Respiratory Rate Respiratory Effort Normal Non-Labored Respiratory Depth Normal Respiratory Pattern Normal Blood Pressure Blood Pressure Mean Blood Pressure Source Blood Pressure Position Blood Pressure Location Pulse Ox Oxygen Delivery Method Nasal Cannula Nasal Cannula Nasal Cannula Oxygen Flow Rate (L/min) 2 2 2 Weight Weight: 261 lb 6 oz Body Mass Index (BMI) 38.5 Lab / Micro Data 07/04/25 02:00 07/04/25 02:00 Labs: Laboratory Results - last 24 hr 07/04/25 02:00: WBC 10.1, RBC 3.78 L, Hgb 11.9 L, Hct 37.2 L, MCV 98.4 H, MCH 31.5, MCHC 32.0, RDW Std Deviation 49.6 H, RDW Coeff of Mukul 13.6, Plt Count 269, MPV 9.3, Immature Gran % (Auto) 0.900, Neut % (Auto) 79.6 H, Lymph % (Auto) 6.9 L, [place] % (Auto) 9.9, Eos % (Auto) 2.2, Baso % (Auto) 0.5, Absolute Neuts (auto) 8.1 H, Absolute Lymphs (auto) 0.70 L, Nucleated RBC % 0, Sodium 140, Potassium 4.3, Chloride 106, Carbon Dioxide 23.6, Anion Gap 11, BUN 25 H, Creatinine 1.17, Estim Creat Clear Calc 70.79, Est GFR (MDRD) Non-Af 64, BUN/Creatinine Ratio 21.7 H, Glucose 195 H, Calcium 9.1, Magnesium 1.8, Total Bilirubin 1.47 H, AST 24, ALT 19, Alkaline Phosphatase 129, Total Protein 6.5, Albumin 3.8, Globulin 2.7, Albumin/Globulin Ratio 1.4 07/04/25 06:39: POC Glucose 171 H Imaging Radiology Impression Brain CT 07/04/25 01:53 IMPRESSION: No intracerebral or extra axial hemorrhage. No acute cerebrovascular insult. If clinical symptoms persist, further evaluation with MRI may be considered as clinically warranted. Bilateral cerebral microvascular ischemic changes with mild brain involutional changes. stable Reading Location: [place] [id number] 07/04/25 01:53 IMPRESSION: No newly developed vertebral fractures, structural collapse or dislocation. Stable study findings as detailed. Reading Location: [place] [address] Humerus X-Ray 07/04/25 02:30 IMPRESSION: Acute comminuted displaced fractures of the humeral surgical neck. Overlying soft tissue edema and swelling. Reading Location: [place] [address] Shoulder X-Ray 07/04/25 02:30 IMPRESSION: Acute comminuted displaced fractures of the humeral surgical neck. Overlying soft tissue edema and swelling. Reading Location: [place] [address] Assessment & Plan Assessment/Plan (1) Left humeral fracture: QUALIFIERS: Encounter type: initial encounter Humerus Location: surgical neck Fracture type: closed Fracture morphology: 2-part Fracture alignment: displaced Qualified Code(s): S42.222A - 2-part displaced fracture of surgical neck of left humerus, initial encounter for closed fracture PLAN: 80 yr M with L proximal humerus fracture, comminuted, angulated. Recommend outpatient FU for discussion on options once stabilized (sling / non op VS reverse total shoulder arthroplasty). Sling for comfort for now.
--- NOTE | 2025-07-04 09:58 | CASEMGMT ---
Social Work SW met w/pt, spoke w/pt about prior level of function and anticipated discharge plan. PCP: Pt goes to the [place], sees Dr. Braga locally if needed [facility]ists: [facility] Insurance: [facility] benefits, Medicare Part A Prescription coverage: Pt does not have separate prescription coverage, gets medications through the [place] Pharmacy: Pt uses the [place] mail-in option or picks up the meds at the [place]. Pt also has [facility] listed LNOK: , children, grandson. Regarding pt's children, pt states, we don't socialize. LW/POA: Pt states has completed in the past, his cousin was listed as POA but he has . Pt's is listed as second. SW explained she is the person we would speak to if needed, let pt know we do not have the documents on file. Pt may be interested in completing the documents in the future, wants to review what he has. SW gave pt the blank forms w/the information to call the SW dept to make an appt to complete the documents should he want to follow up on this. Living arrangements/Prior level of function: Pt lives w/ and 18 yr old grandson in a 2 story home, flight to bedroom, one step into the home. Pt is normally independent with all ADLs, drives, cooks, cleans, organizes medications, pays bills. also helps w/household tasks. DME: Pt uses no DME, no O2 at baseline. HHC/SNF: Pt has done outpt PT, but has not had HHC or SNF in the past. Plan: It is anticipated pt will return home at d/c. SW will follow for PT/OT recommendations, ALAN will continue to follow. OMAR Sung
--- NOTE | 2025-07-04 14:23 | PCM.DC.SUM ---
Providers Date of Admission: 07/04/25 Primary Care Physician: Dr. Billy Braga, DO Consultations 07/04/25 05:31 Consult: Orthopedics Routine Consulting Provider: Umer Rivera Reason for Consult: Fall, L humeral neck fx. EMERGENT Consult: No MD Notified: Yes Date Notified: 07/04/25 Time Notified: 04:15 Method of Notification: ED Physician Initiated Reason For Visit: FALL, HUMERAL NECK FRACTURE, ADULT FTT Diagnosis Discharge Diagnosis (1) Left humeral fracture: Status: Acute Code(s): S42.302A - Unspecified fracture of shaft of humerus, left arm, initial encounter for closed fracture Qualifiers: Encounter type: initial encounter Humerus Location: surgical neck Fracture type: closed Fracture morphology: 2-part Fracture alignment: displaced Qualified Code(s): S42.222A - 2-part displaced fracture of surgical neck of left humerus, initial encounter for closed fracture Plan Patient is a 80-year-old male who presented to the hospital after falling while going up a flight of stairs landing on his left shoulder with subsequent pain imaging studies obtained on admission demonstrated left comminuted displaced fractures of the humeral surgical neck with overlying soft tissue edema. Admitted to the regular nursing floor for further management 1. Nonsyncopal fall with left arm pain Imaging studies obtained on admission demonstrated Acute comminuted displaced fractures of the humeral surgical neck, with Overlying soft tissue edema and swelling. Patient admitted to regular nursing floor for pain management consult placed Ortho on admission 2. Anemia ? Secondary to chronic disorder monitoring H&H and transfuse if patient becomes symptomatic or hemoglobin falls below 7 3. Coronary artery disease ? Status post CABG. Patient is on guideline directed medical therapy 4. Paroxysmal atrial fibrillation ? Rate controlled on systemic anticoagulation with apixaban 5. Hypertension ? Blood pressure controlled, home medications continued with dose adjustment as needed 6. Diabetes mellitus type II -patient's oral hypoglycemics held. Placed on Accu-Cheks a.c. and at bedtime and covered with sliding scale insulin 7. Hypothyroidism ? Patient is on levothyroxine home dose continued 8. Class II obesity with BMI of 38.6 ? Complicating care weight loss advised 9. Valvular heart disease ? With history of aortic valve replacement 10. DVT prophylaxis ? Patient is on apixaban which was held given patient injury Time spent in the patient's overall evaluation,decision-making process, review of diagnostic data, adjustment of management, discussion with other providers, nursing nursing and ancillary staff involved in patient's care documentation, 40 Minutes Medications at Discharge Home Medications metformin 500 mg tablet 500 mg PO DAILY DIABETES 02/21/18 metoprolol tartrate 25 mg tablet 25 mg PO BID BLOOD PRESSURE 02/21/18 cholecalciferol (vitamin D3) 50 mcg (2,000 unit) capsule (Vitamin D3) 2,000 unit PO DAILY 03/26/18 apixaban 5 mg tablet (Eliquis) 5 mg PO BID 07/03/25 aspirin 81 mg capsule 81 mg PO DAILY 07/03/25 atorvastatin 10 mg tablet (Lipitor) 10 mg PO QHS 07/03/25 furosemide 40 mg tablet (Lasix) 20 mg PO DAILY 07/03/25 levothyroxine 75 mcg tablet (Synthroid) 75 mcg PO DAILY 07/03/25 lisinopril 10 mg tablet 5 mg PO DAILY 07/03/25 tamsulosin 0.4 mg capsule 0.4 mg PO DAILY 07/03/25 amlodipine 2.5 mg tablet 2.5 mg PO DAILY 07/04/25 oxycodone 5 mg tablet 5 mg PO Q4H PRN PRN Pain Score 4-10 5 days #20 tabs 07/04/25 sennosides 8.6 mg-docusate sodium 50 mg tablet (Stimulant Laxative Plus) 2 tab PO BID PRN PRN Constipation #30 tabs 07/04/25 Weight / BMI Weight Weight: 118.558 kg Body Mass Index (BMI) 38.5 ABG / Lab / Microbiology Data 07/04/25 02:00 07/04/25 02:00 Laboratory: Laboratory Results - last 24 hr 07/04/25 02:00: WBC 10.1, RBC 3.78 L, Hgb 11.9 L, Hct 37.2 L, MCV 98.4 H, MCH 31.5, MCHC 32.0, RDW Std Deviation 49.6 H, RDW Coeff of Mukul 13.6, Plt Count 269, MPV 9.3, Immature Gran % (Auto) 0.900, Neut % (Auto) 79.6 H, Lymph % (Auto) 6.9 L, [place] % (Auto) 9.9, Eos % (Auto) 2.2, Baso % (Auto) 0.5, Absolute Neuts (auto) 8.1 H, Absolute Lymphs (auto) 0.70 L, Nucleated RBC % 0, Sodium 140, Potassium 4.3, Chloride 106, Carbon Dioxide 23.6, Anion Gap 11, BUN 25 H, Creatinine 1.17, Estim Creat Clear Calc 70.79, Est GFR (MDRD) Non-Af 64, BUN/Creatinine Ratio 21.7 H, Glucose 195 H, Calcium 9.1, Magnesium 1.8, Total Bilirubin 1.47 H, AST 24, ALT 19, Alkaline Phosphatase 129, Total Protein 6.5, Albumin 3.8, Globulin 2.7, Albumin/Globulin Ratio 1.4 07/04/25 06:39: POC Glucose 171 H 07/04/25 11:50: POC Glucose 165 H Radiography Diagnostic Testing: Radiology Impression Brain CT 07/04/25 01:53 IMPRESSION: No intracerebral or extra axial hemorrhage. No acute cerebrovascular insult. If clinical symptoms persist, further evaluation with MRI may be considered as clinically warranted. Bilateral cerebral microvascular ischemic changes with mild brain involutional changes. stable Reading Location: [place] [address] 07/04/25 01:53 IMPRESSION: No newly developed vertebral fractures, structural collapse or dislocation. Stable study findings as detailed. Reading Location: [place] [address] Humerus X-Ray 07/04/25 02:30 IMPRESSION: Acute comminuted displaced fractures of the humeral surgical neck. Overlying soft tissue edema and swelling. Reading Location: [place] [address] Shoulder X-Ray 07/04/25 02:30 IMPRESSION: Acute comminuted displaced fractures of the humeral surgical neck. Overlying soft tissue edema and swelling. Reading Location: [place] [address] Discharge Plan Admission Admit Date/Time: 07/04/25 04:14 Attending Provider: Tigre Figueroa Primary Care Provider: Billy Braga Consulting Providers: Umer Rivera; Amarilis Tillman Discharge Orders/Prescriptions Prescriptions: New sennosides-docusate sodium [Stimulant Laxative Plus] 8.6-50 mg Tablet 2 tab PO BID PRN PRN (Reason: Constipation) Qty: 30 0RF oxycodone 5 mg Tablet 5 mg PO Q4H PRN PRN (Reason: Pain Score 4-10) 5 Days Qty: 20 0RF Continued metformin 500 MG tablet 500 mg PO DAILY metoprolol tartrate 25 MG tablet 25 mg PO BID cholecalciferol (vitamin D3) [Vitamin D3] 2,000 UNIT capsule 2,000 unit PO DAILY aspirin 81 mg capsule 81 mg PO DAILY levothyroxine [Synthroid] 75 mcg tablet 75 mcg PO DAILY atorvastatin [Lipitor] 10 mg tablet 10 mg PO QHS lisinopril 10 mg tablet 5 mg PO DAILY tamsulosin 0.4 mg capsule 0.4 mg PO DAILY furosemide [Lasix] 40 mg tablet 20 mg PO DAILY Eliquis 5 mg tablet 5 mg PO BID amlodipine 2.5 mg tablet 2.5 mg PO DAILY Referrals / Follow Up: Billy Braga DO [Primary Care Provider] - Umer Rivera MD [Med Staff - Active Staff] - Within 1 Week Disposition Disposition (needs filled in before D/C Order can be placed): Home, Self Care
--- NOTE | 2025-07-04 15:48 | CASEMGMT ---
Addendum entered by Kimmie Ramirez 07/04/25 16:28: Social Work Upon further discussion it seems that pt may not change to inpt. SW called to explain this to her. SW did educate her to the inpt rehab level of care. is agreeable to a referral to inpt rehab. SW will make referral, will follow up on Sunday. OMAR Sung Original Note: Social Work PT evaluation is in, pt was able to walk 140 feet contact guard. SW spoke w/pt, pt's , brother in law and grandson in the room, spoke about discharge options. does confirm pt has Medicare A and B in addition to VA benefits. Family does not think they can manage to care for pt at home. Pt fell twice and has stitches in his right hand, and a broken humerus on the left. Additionally pt's home is two floors, he sleeps on the first floor but uses the bathroom on the second as the one on the first floor is broken. Pt would prefer to go home, however family does not think pt should return home. SW explained pt's observation status, and that SNF would not be covered. SW did educate family to [facility]. SW did explain the limits of HHC however. SW explained that they could private pay for SN should pt not qualify for inpt, or pt can return home w/HHC referral as well. Pt's family is very concerned about pt returning home. SW explained will speak w/physician. SW spoke w/physician, it is anticipated pt may change to inpt. SW spoke w/ and [id number] in the hallway. Pt's states to SW that pt cannot go home, he fell twice in two days. SW explained that it does look like at this time pt may be converted to inpt. SW provided to pt's a list from [facility] of senior living facilities in network w/pt's insurance, in pt's geographic area, and complete w/quality and resource use data. SW asked to pick out three facilities and we will follow up w/referrals on Sunday. states understanding. SW will follow up on Sunday. OMAR Sung
--- NOTE | 2025-07-04 16:09 | CASEMGMT ---
Dr Figueroa provides verbal order for pt to change to inpt status. This process description writer notified [facility] of order at this time.
[2025-07-05] VITALS (8 sets, daily range): BP systolic 104–124; BP diastolic 46–89; PULSE 62–90; RESP 16–20; TEMP 36.6–36.9; O2SAT 92–96; BMI 38.8
--- NOTE | 2025-07-05 07:29 | PCM.PN.HOSP ---
Reason for Visit Chief Complaint: Fall, LUE pain/shoulder pain. Subjective Subjective Patient was seen by therapy the day prior recommendation was made for outpatient physical therapy following discharge however patient home condition is not suitable for patient being discharged home (has no bathroom on the first floor and had fallen twice on his staircase) Objective Data Objective Data Vital Signs: Vital Signs Temp Pulse Resp BP Pulse Ox O2 Del Method O2 Flow Rate 97.9 F 64 16 124/59 H 95 Nasal Cannula 2 07/05/25 02:18 07/05/25 02:18 07/05/25 02:18 07/05/25 02:18 07/05/25 02:28 07/05/25 07:19 07/05/25 07:19 Oxygen Flow Rate (L/min) 2 Oxygen Delivery Method Nasal Cannula Weight: 119 kg Body Mass Index (BMI) 38.8 Intake & Output: Intake and Output for Last 24 Hours 07/03/25 07/04/25 07/05/25 23:59 23:59 23:59 Intake Total 501.67 / 501.67 Balance 501.67 / 501.67 Lab / Micro Data 07/05/25 06:32 07/04/25 02:00 Labs: Laboratory Results - last 24 hr 07/04/25 11:50: POC Glucose 165 H 07/04/25 16:20: POC Glucose 163 H 07/04/25 21:25: POC Glucose 157 H 07/05/25 06:45: POC Glucose 142 H Physical Exam Narrative GENERAL: cooperative HEENT: Atraumatic; normocephalic EYES; Anicteric, Normal Conjunctiva NECK; supple, normal thyroid, RESPIRATORY: Diminished to auscultation CARDIOVASCULAR: Regular S1 S2, GI: soft, normoactive bowel sounds, : No Renal angle tenderness; EXTREMITIES: No edema, no clubbing, MUSCULOSKELETAL: Left shoulder immobilized NEURO: Awake; no lateralizing signs. SKIN: No Rash PSYCH; Flat affect Assessment & Plan Assessment/Plan (1) Left humeral fracture: QUALIFIERS: Encounter type: initial encounter Fracture alignment: displaced Fracture morphology: 2-part Fracture type: closed Humerus Location: surgical neck Qualified Code(s): S42.222A - 2-part displaced fracture of surgical neck of left humerus, initial encounter for closed fracture PLAN: Plan Patient is a 80-year-old male who presented to the hospital after falling while going up a flight of stairs landing on his left shoulder with subsequent pain imaging studies obtained on admission demonstrated left comminuted displaced fractures of the humeral surgical neck with overlying soft tissue edema. Admitted to the regular nursing floor for further management 1. Nonsyncopal fall with left arm pain Imaging studies obtained on admission demonstrated Acute comminuted displaced fractures of the humeral surgical neck, with Overlying soft tissue edema and swelling. Patient admitted to regular nursing floor for pain management consult placed Ortho on admission ? 07/05/2025; patient was seen by Ortho recommended for patient to follow-up as outpatient for treatment options to be discussed. Patient was seen by therapy the day prior recommendation was made for outpatient physical therapy following discharge however patient home condition is not suitable for patient being discharged home (has no bathroom on the first floor and had fallen twice on his staircase) 2. Anemia ? Secondary to chronic disorder monitoring H&H and transfuse if patient becomes symptomatic or hemoglobin falls below 7 3. Coronary artery disease ? Status post CABG. Patient is on guideline directed medical therapy 4. Paroxysmal atrial fibrillation ? Rate controlled on systemic anticoagulation with apixaban 5. Hypertension ? Blood pressure controlled, home medications continued with dose adjustment as needed 6. Diabetes mellitus type II -patient's oral hypoglycemics held. Placed on Accu-Cheks a.c. and at bedtime and covered with sliding scale insulin 7. Hypothyroidism ? Patient is on levothyroxine home dose continued 8. Class II obesity with BMI of 38.6 ? Complicating care weight loss advised 9. Valvular heart disease ? With history of aortic valve replacement 10. DVT prophylaxis ? Patient is on apixaban which was held given patient injury Time spent in the patient's overall evaluation,decision-making process, review of diagnostic data, adjustment of management, discussion with other providers, nursing nursing and ancillary staff involved in patient's care documentation, 35 Minutes Charges/Coding Visit Charges Inpatient E&M: 31170 Subs Hosp L2
[2025-07-05 07:35] LABS: Hematocrit 38.3 % (40-54); Hemoglobin 11.9 g/dL (13.0-16.5); Immature Granulocytes Count 0.060 X10^3/uL (0.0-0.0); Mean Corp Hgb Conc 31.1 g/dL (32-36); Mean Corpuscular Volume 99.0 fL (80-94); Mean Platelet Vol. 9.8 fl (6.2-12.0); NRBC Flagged by Analyzer 0 % (0-5); Platelet Count 325 K/mm3 (150-450); RBC Distribution Width CV 13.9 % (11.6-14.6); RBC Distribution Width SD 50.5 fl (35.1-43.9); Red Blood Count 3.87 M/mm3 (4.6-6.2); White Blood Count 11.0 K/mm3 (4.4-11.0)
[2025-07-05 07:57] LABS: AST(SGOT) 20 U/L (<=37); Alanine Aminotransfer ALT/SGPT 17 U/L (<=46); Albumin, Serum 3.6 g/dL (3.4-4.8); Alkaline Phosphatase 125 U/L (40-129); Anion Gap 12 (5-15); BUN 26 mg/dL (4-19); BUN/Creat Ratio 23.4 RATIO (10-20); Calcium,Total 9.2 mg/dL (7.6-11.0); Carbon Dioxide 23.1 mmol/L (21.0-32.0); Chloride 106 mmol/L (98-108); Estimated Creatinine Clearance 68.60 ml/min (50-250); Globulin 3.0 g/dL (2.2-4.2); Glucose 152 mg/dL (70-99); Potassium 4.3 mmol/L (3.3-5.1)
[2025-07-06 04:33] VITALS: BP 130/70; PULSE 74; RESP 20; TEMP 36.8; O2SAT 94
[2025-07-06 06:00] VITALS: BMI 38.6
[2025-07-06 06:36] LABS: Hematocrit 36.0 % (40-54); Hemoglobin 11.7 g/dL (13.0-16.5); Immature Granulocytes Count 0.060 X10^3/uL (0.0-0.0); Mean Corp Hgb Conc 32.5 g/dL (32-36); Mean Corpuscular Volume 97.8 fL (80-94); Mean Platelet Vol. 9.4 fl (6.2-12.0); NRBC Flagged by Analyzer 0 % (0-5); Platelet Count 303 K/mm3 (150-450); RBC Distribution Width CV 13.9 % (11.6-14.6); RBC Distribution Width SD 50.0 fl (35.1-43.9); Red Blood Count 3.68 M/mm3 (4.6-6.2); White Blood Count 11.2 K/mm3 (4.4-11.0)
[2025-07-06 07:32] LABS: Anion Gap 12 (5-15); BUN 28 mg/dL (4-19); BUN/Creat Ratio 24.3 RATIO (10-20); Calcium,Total 9.7 mg/dL (7.6-11.0); Carbon Dioxide 24.6 mmol/L (21.0-32.0); Chloride 105 mmol/L (98-108); Estimated Creatinine Clearance 66.65 ml/min (50-250); Glucose 162 mg/dL (70-99); Magnesium 2.1 mg/dL (1.5-2.2); Potassium 4.5 mmol/L (3.3-5.1)
[2025-07-06 08:35] VITALS: PULSE 113
[2025-07-06 08:38] VITALS: BP 113/59; PULSE 113; RESP 16; TEMP 36.3; O2SAT 94
--- NOTE | 2025-07-06 09:10 | PN.HOSP_ITS ---
Reason for Visit Chief Complaint: Fall, LUE pain/shoulder pain. Objective Data Objective Data Vital Signs: Vital Signs Temp Pulse Resp BP Pulse Ox O2 Del Method O2 Flow Rate 36.3 C L 113 H 16 113/59 L 94 Room Air 2 07/06/25 08:38 07/06/25 08:38 07/06/25 08:38 07/06/25 08:38 07/06/25 08:38 07/06/25 08:38 07/06/25 04:38 Oxygen Flow Rate (L/min) 2 Oxygen Delivery Method Room Air Weight: 118.4 kg Body Mass Index (BMI) 38.6 Intake & Output: Intake and Output for Last 24 Hours 07/04/25 07/05/25 07/06/25 23:59 23:59 23:59 Intake Total 501.67 / 501.67 Balance 501.67 / 501.67 Lab / Micro Data 07/06/25 06:06 07/06/25 06:06 Labs: Laboratory Results - last 24 hr 07/05/25 11:18: POC Glucose 174 H 07/05/25 16:18: POC Glucose 155 H 07/05/25 22:27: POC Glucose 147 H 07/06/25 06:06: WBC 11.2 H, RBC 3.68 L, Hgb 11.7 L, Hct 36.0 L, MCV 97.8 H, MCH 31.8, MCHC 32.5, RDW Std Deviation 50.0 H, RDW Coeff of Mukul 13.9, Plt Count 303, MPV 9.4, Immature Gran % (Auto) 0.500, Neut % (Auto) 78.8 H, Lymph % (Auto) 7.3 L, [place] % (Auto) 10.5 H, Eos % (Auto) 2.5, Baso % (Auto) 0.4, Absolute Neuts (auto) 8.8 H, Absolute Lymphs (auto) 0.82 L, Nucleated RBC % 0, Sodium 142, Potassium 4.5, Chloride 105, Carbon Dioxide 24.6, Anion Gap 12, BUN 28 H, Creatinine 1.16, Estim Creat Clear Calc 66.65, Est GFR (MDRD) Non-Af 64, B UN/Creatinine Ratio 24.3 H, Glucose 162 H, Calcium 9.7, Phosphorus 3.1, Magnesium 2.1 07/06/25 06:40: POC Glucose 155 H Assessment & Plan Assessment/Plan PLAN: Plan Acute comminuted displaced fractures of the humeral surgical neck, * with Overlying soft tissue edema and swelling. * Ortho consulted and recommends oupt follow up. Sling for comfort now. Falls: * Patient was seen by therapy the day prior recommendation was made for outpatient physical therapy following discharge however patient home condition is not suitable for patient being discharged home (has no bathroom on the first floor and had fallen twice on his staircase) Chronic conditions: * Anemia? Secondary to chronic disorder monitoring H&H and transfuse if patient becomes symptomatic or hemoglobin falls below 7 * Coronary artery disease? Status post CABG. Patient is on guideline directed medical therapy * Paroxysmal atrial fibrillation? Rate controlled on systemic anticoagulation with apixaban * Hypertension Blood pressure controlled, home medications continued with dose adjustment as needed * Diabetes mellitus type II-patient's oral hypoglycemics held. Placed on Accu- Cheks a.c. and at bedtime and covered with sliding scale insulin * Hypothyroidism? Patient is on levothyroxine home dose continued * Class II obesity with BMI of 38.6? Complicating care weight loss advised * Valvular heart disease? With history of aortic valve replacement DVT prophylaxis ? Patient is on apixaban which was held given patient injury
--- NOTE | 2025-07-06 09:10 | PCM.PN.HOSP ---
Reason for Visit Chief Complaint: Fall, LUE pain/shoulder pain. Subjective Subjective Doing well. Ready to go. Objective Data Objective Data Vital Signs: Vital Signs Temp Pulse Resp BP Pulse Ox O2 Del Method O2 Flow Rate 36.3 C L 113 H 16 113/59 L 94 Room Air 2 07/06/25 08:38 07/06/25 08:38 07/06/25 08:38 07/06/25 08:38 07/06/25 08:38 07/06/25 08:38 07/06/25 04:38 Oxygen Flow Rate (L/min) 2 Oxygen Delivery Method Room Air Weight: 118.4 kg Body Mass Index (BMI) 38.6 Intake & Output: Intake and Output for Last 24 Hours 07/04/25 07/05/25 07/06/25 23:59 23:59 23:59 Intake Total 501.67 / 501.67 Balance 501.67 / 501.67 Lab / Micro Data 07/06/25 06:06 07/06/25 06:06 Labs: Laboratory Results - last 24 hr 07/05/25 11:18: POC Glucose 174 H 07/05/25 16:18: POC Glucose 155 H 07/05/25 22:27: POC Glucose 147 H 07/06/25 06:06: WBC 11.2 H, RBC 3.68 L, Hgb 11.7 L, Hct 36.0 L, MCV 97.8 H, MCH 31.8, MCHC 32.5, RDW Std Deviation 50.0 H, RDW Coeff of Mukul 13.9, Plt Count 303, MPV 9.4, Immature Gran % (Auto) 0.500, Neut % (Auto) 78.8 H, Lymph % (Auto) 7.3 L, [place] % (Auto) 10.5 H, Eos % (Auto) 2.5, Baso % (Auto) 0.4, Absolute Neuts (auto) 8.8 H, Absolute Lymphs (auto) 0.82 L, Nucleated RBC % 0, Sodium 142, Potassium 4.5, Chloride 105, Carbon Dioxide 24.6, Anion Gap 12, BUN 28 H, Creatinine 1.16, Estim Creat Clear Calc 66.65, Est GFR (MDRD) Non-Af 64, BUN/Creatinine Ratio 24.3 H, Glucose 162 H, Calcium 9.7, Phosphorus 3.1, Magnesium 2.1 09/08/25 06:40: POC Glucose 155 H Physical Exam Const alert and no apparent distress HEENT HEENT Narrative: Rhinophyma Extremity Extremity Narrative: Left arm in sling. Noted edema, nonpitting of the left shoulder. Assessment & Plan Assessment/Plan (1) Left humeral fracture: QUALIFIERS: Encounter type: initial encounter Humerus Location: surgical neck Fracture type: closed Fracture morphology: 2-part Fracture alignment: displaced Qualified Code(s): S42.222A - 2-part displaced fracture of surgical neck of left humerus, initial encounter for closed fracture PLAN: Plan Acute comminuted displaced fractures of the humeral surgical neck, with Overlying soft tissue edema and swelling. Ortho consulted and recommends oupt follow up. Sling for comfort now. Falls: Patient was seen by therapy the day prior recommendation was made for outpatient physical therapy following discharge however patient home condition is not suitable for patient being discharged home (has no bathroom on the first floor and had fallen twice on his staircase) Chronic conditions: Anemia? Secondary to chronic disorder monitoring H&H and transfuse if patient becomes symptomatic or hemoglobin falls below 7 Coronary artery disease? Status post CABG. Patient is on guideline directed medical therapy Paroxysmal atrial fibrillation? Rate controlled on systemic anticoagulation with apixaban Hypertension Blood pressure controlled, home medications continued with dose adjustment as needed Diabetes mellitus type II-patient's oral hypoglycemics held. Placed on Accu-Cheks a.c. and at bedtime and covered with sliding scale insulin Hypothyroidism? Patient is on levothyroxine home dose continued Class II obesity with BMI of 38.6? Complicating care weight loss advised Valvular heart disease? With history of aortic valve replacement DVT prophylaxis ? Patient is on apixaban which was held given patient injury Disposition: Patient to go to rehab waiting on further conversation with social work and the patient's spouse.
--- NOTE | 2025-07-06 10:42 | CASEMGMT ---
Social Work- SW met with pt to update on [facility] RU acceptance. Pt agreeable. SW called pt to update. Pt reports that [facility] and has a bunch of information to discuss with SW and will be in within the hour. SW remains available to follow. NAJMA Bautista
--- NOTE | 2025-07-06 11:32 | DS.PCM_ITS ---
Providers Date of Admission: 07/04/25 Primary Care Physician: Dr. Billy Braga, DO Consultations 07/04/25 05:31 Consult: Orthopedics Routine Consulting Provider: Umer Rivera Reason for Consult: Fall, L humeral neck fx. EMERGENT Consult: No MD Notified: Yes Date Notified: 07/04/25 Time Notified: 04:15 Method of Notification: ED Physician Initiated Reason For Visit: FALL, HUMERAL NECK FRACTURE, ADULT FTT Diagnosis Discharge Diagnosis (1) Left humeral fracture: Status: Acute Code(s): S42.302A - Unspecified fracture of shaft of humerus, left arm, initial encounter for closed fracture Qualifiers: Encounter type: initial encounter Humerus Location: surgical neck F racture type: closed Fracture morphology: 2-part Fracture alignment: displaced Qualified Code(s): S42.222A - 2-part displaced fracture of surgical neck of left humerus, initial encounter for closed fracture Plan Acute comminuted displaced fractures of the humeral surgical neck, * with Overlying soft tissue edema and swelling. * Ortho consulted and recommends oupt follow up. Sling for comfort now. Falls: * Patient was seen by therapy the day prior recommendation was made for outpatient physical therapy following discharge however patient home condition is not suitable for patient being discharged home (has no bathroom on the first floor and had fallen twice on his staircase) Chronic conditions: * Anemia? Secondary to chronic disorder monitoring H&H and transfuse if patient becomes symptomatic or hemoglobin falls below 7 * Coronary artery disease? Status post CABG. Patient is on guideline directed medical therapy * Paroxysmal atrial fibrillation? Rate controlled on systemic anticoagulation with apixaban * Hypertension Blood pressure controlled, home medications continued with dose adjustment as needed * Diabetes mellitus type II-patient's oral hypoglycemics held. Placed on Accu- Cheks a.c. and at bedtime and covered with sliding scale insulin * Hypothyroidism? Patient is on levothyroxine home dose continued * Class II obesity with BMI of 38.6? Complicating care weight loss advised * Valvular heart disease? With history of aortic valve replacement DVT prophylaxis ? Patient is on apixaban which was held given patient injury Disposition: Patient to go to rehab waiting on further conversation with social work and the patient's spouse. Medications at Discharge Home Medications metformin 500 mg tablet 500 mg PO DAILY DIABETES 02/21/18 metoprolol tartrate 25 mg tablet 25 mg PO BID BLOOD PRESSURE 02/21/18 cholecalciferol (vitamin D3) 50 mcg (2,000 unit) capsule (Vitamin D3) 2,000 unit PO DAILY 03/26/18 apixaban 5 mg tablet (Eliquis) 5 mg PO BID 07/03/25 aspirin 81 mg capsule 81 mg PO DAILY 07/03/25 atorvastatin 10 mg tablet (Lipitor) 10 mg PO QHS 07/03/25 furosemide 40 mg tablet (Lasix) 20 mg PO DAILY 07/03/25 levothyroxine 75 mcg tablet (Synthroid) 75 mcg PO DAILY 07/03/25 lisinopril 10 mg tablet 5 mg PO DAILY 07/03/25 tamsulosin 0.4 mg capsule 0.4 mg PO DAILY 07/03/25 amlodipine 2.5 mg tablet 2.5 mg PO DAILY 07/04/25 oxycodone 5 mg tablet 5 mg PO Q4H PRN PRN Pain Score 4-10 5 days #20 tabs 07/04/25 sennosides 8.6 mg-docusate sodium 50 mg tablet (Stimulant Laxative Plus) 2 tab PO BID PRN PRN Constipation #30 tabs 07/04/25 Hospital Course Operations None Procedures None Weight / BMI Weight Weight: 118.4 kg Body Mass Index (BMI) 38.6 ABG / Lab / Microbiology Data 07/06/25 06:06 07/06/25 06:06 Laboratory: Laboratory Results - last 24 hr 07/05/25 11:18: POC Glucose 174 H 07/05/25 16:18: POC Glucose 155 H 07/05/25 22:27: POC Glucose 147 H 07/06/25 06:06: WBC 11.2 H, RBC 3.68 L, Hgb 11.7 L, Hct 36.0 L, MCV 97.8 H, MCH 31.8, MCHC 32.5, RDW Std Deviation 50.0 H, RDW Coeff of Mukul 13.9, Plt Count 303, MPV 9.4, Immature Gran % (Auto) 0.500, Neut % (Auto) 78.8 H, Lymph % (Auto) 7.3 L, [place] % (Auto) 10.5 H, Eos % (Auto) 2.5, Baso % (Auto) 0.4, Absolute Neuts (auto) 8.8 H, Absolute Lymphs (auto) 0.82 L, Nucleated RBC % 0, Sodium 142, Potassium 4.5, Chloride 105, Carbon Dioxide 24.6, Anion Gap 12, BUN 28 H, Creatinine 1.16, Estim Creat Clear Calc 66.65, Est GFR (MDRD) Non-Af 64, B UN/Creatinine Ratio 24.3 H, Glucose 162 H, Calcium 9.7, Phosphorus 3.1, Magnesium 2.1 07/06/25 06:40: POC Glucose 155 H 07/06/25 11:09: POC Glucose 192 H D/C Instructions Weight Bearing Status: No weight bearing (Left upper extremity. Sling left upper extremity.) DC O2, CPAP, BIPAP Needs Home O2 Discharge instructions: No Meaningful Use Info Meaningful Use Meaningful Use Diagnoses (Choose all that apply): None applicable Discharge Plan Admission Admit Date/Time: 07/04/25 04:14 Primary Reason for Your Visit: Left humeral fracture Attending Provider: Jerrell Esquivel Primary Care Provider: Billy Braga Consulting Providers: Umer Rivera; Amarilis Tillman; Tigre Figueroa Discharge Orders/Prescriptions Prescriptions: New sennosides-docusate sodium [Stimulant Laxative Plus] 8.6-50 mg Tablet 2 tab PO BID PRN PRN (Reason: Constipation) Qty: 30 0RF oxycodone 5 mg Tablet 5 mg PO Q4H PRN PRN (Reason: Pain Score 4-10) 5 Days Qty: 20 0RF Continued metformin 500 MG tablet 500 mg PO DAILY metoprolol tartrate 25 MG tablet 25 mg PO BID cholecalciferol (vitamin D3) [Vitamin D3] 2,000 UNIT capsule 2,000 unit PO DAILY aspirin 81 mg capsule 81 mg PO DAILY levothyroxine [Synthroid] 75 mcg tablet 75 mcg PO DAILY atorvastatin [Lipitor] 10 mg tablet 10 mg PO QHS lisinopril 10 mg tablet 5 mg PO DAILY tamsulosin 0.4 mg capsule 0.4 mg PO DAILY furosemide [Lasix] 40 mg tablet 20 mg PO DAILY Eliquis 5 mg tablet 5 mg PO BID amlodipine 2.5 mg tablet 2.5 mg PO DAILY Referrals / Follow Up: Billy Braga DO [Primary Care Provider] - Umer Rivera MD [Med Staff - Active Staff] - Within 1 Week Disposition Disposition (needs filled in before D/C Order can be placed): Inpatient Rehab Unit/Facility Charges/Coding Visit Charges Inpatient E&M: 84164 Disch Hosp
--- NOTE | 2025-07-06 12:19 | CASEMGMT ---
Met with patient and pt's to review GARCIA form. GARCIA form and its content were verbally explained and patient?s questions were answered to the best of my ability. Patient and pt's voiced understanding and pt's signed GARCIA form. Patient provided a copy of signed GARCIA form and original placed in patient?s chart. Patient had no further questions or concerns.
--- NOTE | 2025-07-06 12:45 | CASEMGMT ---
Social Work- SW met with pt and pt ; pt preference remains to d/c to [facility] Rehab Unit. SW updated hospitalist. Pt accepted and will transfer per hospitalist. SW remains available to follow. NAJMA Bautista
--- NOTE | 2025-07-06 13:49 | PHA.DC_ITS ---
Pharmacy [facility] Reconciliation Pharmacy Service has performed discharge medication reconciliation for this patient. The patient's discharge medication list was reviewed for discrepancies and discrepancies were resolved. Medications at Discharge Home Medications metformin 500 mg tablet 500 mg PO DAILY DIABETES 02/21/18 metoprolol tartrate 25 mg tablet 25 mg PO BID BLOOD PRESSURE 02/21/18 cholecalciferol (vitamin D3) 50 mcg (2,000 unit) capsule (Vitamin D3) 2,000 unit PO DAILY 03/26/18 apixaban 5 mg tablet (Eliquis) 5 mg PO BID 07/03/25 aspirin 81 mg capsule 81 mg PO DAILY 07/03/25 atorvastatin 10 mg tablet (Lipitor) 10 mg PO QHS 07/03/25 furosemide 40 mg tablet (Lasix) 20 mg PO DAILY 07/03/25 levothyroxine 75 mcg tablet (Synthroid) 75 mcg PO DAILY 07/03/25 lisinopril 10 mg tablet 5 mg PO DAILY 07/03/25 tamsulosin 0.4 mg capsule 0.4 mg PO DAILY 07/03/25 amlodipine 2.5 mg tablet 2.5 mg PO DAILY 07/04/25 oxycodone 5 mg tablet 5 mg PO Q4H PRN PRN Pain Score 4-10 5 days #20 tabs 07/04/25 sennosides 8.6 mg-docusate sodium 50 mg tablet (Stimulant Laxative Plus) 2 tab PO BID PRN PRN Constipation #30 tabs 07/04/25
[2025-07-06 13:51] VITALS: BP 99/50; PULSE 67; RESP 15; TEMP 36.3; O2SAT 95
--- NOTE | 2025-07-06 14:28 | CASEMGMT ---
Social Work- Physician updated that pt is ready for discharge today.?[facility] RU admissions updated. ALAN received call from [place] at [place] requesting updates and d/c to be faxed. . ALAN faxed d/c. SW met with pt and they are agreeable to discharge as stated above.? Bedside nurse notified of discharge. ALAN faxed discharge to [facility] Inpatient Rehab Unit. Pt updated. Disposition: [facility] Inpatient Rehab Unit NAJMA Bautista
== END 2025-07-06 15:15 ==
LOC: ED 02:28 → MS3 04:35
PROVIDERS: Internal Medicine; Admitting Provider Family Medicine; Emergency Provider Emergency Medicine; PCP Family Medicine
DX: S42.222A 2-part displaced fracture of surgical neck of left humerus, initial encounter for closed fracture (principal); I48.0 Paroxysmal atrial fibrillation; E11.22 Type 2 diabetes mellitus with diabetic chronic kidney disease; Z79.84 Long term (current) use of oral hypoglycemic drugs; Z79.890 Hormone replacement therapy; W10.9XXA Fall (on) (from) unspecified stairs and steps, initial encounter; E78.5 Hyperlipidemia, unspecified; R53.81 Other malaise; Z68.39 Body mass index [BMI] 39.0-39.9, adult; Z79.01 Long term (current) use of anticoagulants; I12.9 Hypertensive chronic kidney disease with stage 1 through stage 4 chronic kidney disease, or unspecified chronic kidney disease; Z79.899 Other long term (current) drug therapy; N18.2 Chronic kidney disease, stage 2 (mild); Z79.82 Long term (current) use of aspirin; I25.10 Atherosclerotic heart disease of native coronary artery without angina pectoris; E66.812 Obesity, class 2; Z95.2 Presence of prosthetic heart valve; S61.411D Laceration without foreign body of right hand, subsequent encounter; W01.0XXD Fall on same level from slipping, tripping and stumbling without subsequent striking against object, subsequent encounter; D53.9 Nutritional anemia, unspecified; E03.9 Hypothyroidism, unspecified; D63.8 Anemia in other chronic diseases classified elsewhere
CPT/HCPCS: 36415; 70450; 72125; 73030; 73060; 80048; 80053; 82962; 83735; 84100; 85025; 94668; 96361; 96374; 96375; 96376; 97116; 97162; 97166; 97530; 99221; 99285; A4216; G0378

== ENCOUNTER 2025-07-06 15:33 | Inpatient (IN) | payer MEDICARE, SELFPAY ==
[2025-07-06 15:51] VITALS: BP 114/59; PULSE 60; RESP 18; TEMP 36.4; O2SAT 97
[2025-07-06 17:39] VITALS: BP 114/59; PULSE 60; RESP 18; TEMP 36.4; O2SAT 97
[2025-07-06 20:20] VITALS: PULSE 74; RESP 16; O2SAT 97
[2025-07-06 21:05] VITALS: BP 120/59; PULSE 74
[2025-07-06 21:06] VITALS: BMI 36.1
[2025-07-06] MEDS: APIXABAN 5 MG TABLET PO (21:07)
[2025-07-06] MEDS: Senna/Docusate Sodium 1 Tablet 2 TABLET PO (21:08)
[2025-07-06 21:17] VITALS: PULSE 74
[2025-07-06] MEDS: 0.9% Saline Lock 10 ML Syringe IV (21:20)
--- OUTSIDE RECORDS SUMMARY | 2025-07-06 22:10 | XMS RPT_ITS | CCD ---
Author Organization [facility] Care Team Providers Care Warehouse Coordinator Name Role Phone Dr. Billy Braga DO Primary Care Provider [phone] Dr. Mj Ngo DO Emergency Provider Dr. Randy Gibson DO Emergency Provider [phone] Layne RUSSO, Dr. Amarilis Soto Attending Provider Dr. Amarilis Tillman MD Admit Provider Billy Braga Primary Care Unavailable Amarilis Tillman Attending Unavailable Umer Rivera Consulting Unavailable Billy Braga Primary Care Unavailable Jerrell Esquivel Attending Unavailable Amarilis Tillman Admitting Unavailable Amarilis Tillman Consulting Unavailable Tigre Figueroa Consulting Unavailable Jerrell Esquivel Consulting Unavailable Tigre Figueroa Attending Unavailable Umer Rivera Attending Unavailable Billy Braga Primary Care Unavailable Mj Ngo Attending Unavailable Layne RUSSO, Dr. Amarilis Soto Other Provider [phone] Umer Rivera MD Other Provider Dr. Jerrell Esquivel DO Attending Provider Dr. Tigre Figueroa MD Other Provider Unavailable Umer Rivera MD Attending Provider Dr. Tigre Figueroa MD Attending Provider Unavaila ble Dr. Jerrell Esquivel DO Other Provider Allergies Allergy Classification Reported Allergen(s) Allergy Type Date of Onset Reaction(s) Facility (4 sources) Penicillins Allergy to substance 12-26-2022 Other [facility] (1 source) Penicillins Drug allergy (disorder) 07-03-2025 [facility] Repository Medications Current Medications Medication Drug Class(es) Dates Sig (Normalized) Sig (Original) amLODIPine 2.5 mg oral tablet (2 sources) Dihydropyridine Calcium Channel Wojciech Start: 07-04-2025 take 1 tablet by mouth once daily Amlodipine 2.5 mg tablet Active 2.5 mg PO DAILY July 04, 2025 12:00am apixaban 5 mg oral tablet (3 sources) Factor Xa Inhibitor Start: 07-03-2025 take 1 tablet by mouth twice daily Apixaban (Eliquis) 5 mg tablet Active 5 mg PO TWICE A DAY July 03, 2025 12:00am aspirin 81 mg oral tablet (7 sources) Platelet Aggregation Inhibitor, Nonsteroidal Anti-inflammatory Drug [...] 6:52am ANTIPLATELET atorvastatin 10 mg oral tablet (3 sources) HMG-CoA Reductase Inhibitor Start: 07-03-2025 take 1 tablet by mouth at bedtime Atorvastatin (Lipitor) 10 mg tablet Active 10 mg PO AT BEDTIME July 03, 2025 12:00am cholecalciferol 0.05 mg oral capsule (8 sources) Vitamin D Start: 03-26-2018 take 1 capsule by mouth once daily Cholecalciferol (Vitamin D3) (Vitamin D3) 2,000 UNIT capsule Active 2000 U PO DAILY March 26, 2018 12:00am Start: 02-21-2018 End: 03-26-2018 take 1 tablet by mouth once daily Cholecalciferol (Vitamin D3) 2,000 UNIT Tab.Chew Discontinued 2000 U PO DAILY February 21, 2018 12:00am March 26, 2018 10:36am SUPPLEMENT docusate sodium 50 mg / sennosides, senior living 8.6 mg oral tablet (1 source) Start: 07-04-2025 Sennosides-Doc usate Sodium (Stimulant Laxative Plus) 8.6-50 mg Tablet Active 2 {tbl} PO TWICE DAILY NEEDED as needed for Constipation 30 0 July 04, 2025 12:00am furosemide 40 mg oral tablet (7 sources) Loop Diuretic Start: 07-03-2025 Furosemide (La six) 40 mg tablet Active 20 mg PO DAILY July 03, 2025 12:00am Start: 12-26-2022 End: 07-03-2025 take 1 tablet by mouth once daily Furosemide (Lasix) 40 mg tablet Discontinued 40 mg PO DAILY 14 0 December 26, 2022 1:00am July 03, 2025 6:53am levothyroxine sodium 0.075 mg oral tablet (7 sources) l-Thyroxine Start: 07-03-2025 take 1 tablet by mouth once daily Levothyroxine (Synthroid) 75 mcg tablet Active 75 ug PO DAILY July 03, 2025 12:00am Start: 03-26-2018 End: 07-03-2025 take 1 tablet by mouth once daily Levothyroxine 25 MCG tablet Discontinued 25 ug PO DAILY March 26, 2018 12:00am July 03, 2025 6:52am lisinopril 10 mg oral tablet (3 sources) Angiotensin Converting Enzyme Inhibitor Start: 07-03-2025 take 5 mg by mouth once daily Lisinopril 10 mg tablet Active 5 mg PO DAILY July 03, 2025 12:00am Start: 07-03-2025 take 1 tablet by hubert th once daily Lisinopril 10 mg tablet Active 10 mg PO DAILY July 03, 2025 12:00am metFORMIN hydrochloride 500 mg oral tablet (4 sources) Biguanide Start: 02-21-2018 take 1 tablet by mouth once daily Metformin 500 MG tablet Active 500 mg PO DAILY February 21, 2018 12:00am DIABETES Start: 02-21-2018 take 1 tablet by hubert th twice daily at mealtime Metformin 500 MG tablet Active 500 mg PO TWICE DAILY WITH MEALS February 21, 2018 12:00am DIABETES metoprolol tartrate 25 mg oral tablet (4 sources) beta-Adrenergic Wojciech Start: 02-21-2018 take 1 tablet by mouth twice daily Metoprolol Tartrate 25 MG tablet Active 25 mg PO TWICE A DAY February 21, 2018 12:00am BLOOD PRESSURE oxyCODONE hydrochloride 5 mg oral tablet (1 source) Opioid Agonist Start: 07-04-2025 take 1 tablet by mouth every four hours as needed for pain Oxycodone 5 mg Tablet Active 5 mg PO EVERY 4 HOURS NEEDED as needed for Pain Score 4-10 20 5 0 July 04, 2025 Fracture of left humerus tamsulosin hydrochloride 0.4 mg oral capsule (3 sources) alpha-Adrenergic Wojciech Start: 07-03-2025 take 1 capsule by mouth once daily Tamsulosin 0.4 mg capsule Active 0.4 mg PO DAILY July 03, 2025 12:00am Completed/Discontinued Medications Medication Drug Class(es) Dates Sig (Normalized) Sig (Original) diclofenac sodium 0.01 mg/mg topical gel (4 sources) Nonsteroidal Anti-inflammatory Drug Start: 03-01-2022 End: 07-03-2025 Diclofenac Sodium (Voltaren Arthritis Pain) 1 % gel Discontinued 4 g TOPICAL THREE TIMES A DAY 100 0 March 01, 2022 12:00am July 03, 2025 6:53am apply to single knee docusate sodium 100 mg oral capsule (4 sources) Start: 02-21-2018 End: 07-03-2025 take 1 capsule by mouth twice daily as needed for constipation Docusate Sodium (Colace) 100 MG capsule Discontinued 100 mg PO TWICE A DAY as needed for Constipation February 21, 2018 12:00am July 03, 2025 6:53am simvastatin 20 mg oral tablet (4 sources) HMG-CoA Reductase Inhibitor Start: 02-21-2018 End: 07-03-2025 take 1 tablet by mouth at bedtime Simvastatin 20 MG tablet Discontinued 20 mg PO AT BEDTIME February 21, 2018 12:00am July 03, 2025 6:52am HYPERLIPIDEMIA warfarin sodium 2.5 mg oral tablet (8 sources) Vitamin K Antagonist Start: 02-21-2018 End: [...] Documented Date Episodic/Chronic Congestive heart failure; nonhypertensive (4 sources) Congestive heart failure; Translations: [Heart failure, unspecified] 12-26-2022 Chronic Coronary atherosclerosis and other heart disease (4 sources) Calcific coronary arteriosclerosis; Translations: [Coronary atherosclerosis due to calcified coronary lesion] 03-26-2018 Chronic Fracture of upper limb (6 sources) Fracture of humerus ; Translations: [Unspecified fracture of shaft of humerus, left arm, initial encounter for closed fracture] Onset: 07-06-2025 07-04-2025 Episodic Open wounds of extremities (3 sources) Laceration of hand; Translations: [Laceration without foreign body of unspecified hand, initial encounter] 07-03-2025 Episodic Osteoarthritis (4 sources) Osteoarthritis of right knee joint; Translations: [Unilateral primary osteoarthritis, right knee] 03-01-2022 Chronic Other connective tissue disease (3 sources) Hand pain; Translations: [Pain in right hand] 07-03-2025 Episodic Other injuries and conditions due to external causes (3 sources) Closed injury of head; Translations: [Unspecified injury of head, initial encounter] 07-03-2025 Episodic Other lower respiratory disease (4 sources) Dyspnea; Translations: [Dyspnea, unspecified] 12-26-2022 Episodic Other non-traumatic joint disorders (4 sources) Pain in right knee; Translations: [Right knee pain] 03-01-2022 Episodic Results Test Name Value Interpretation Reference Range Facility Absolute lymphocyte countOrd ered By: Tigre Figueroa on 07-06-2025 Lymphocytes Auto (Unsp spec) [#/Vol] 0.82 10*3/uL Low 0.83-4.51 [facility] Absolute neutrophil countOrd ered By: Tigre Figueroa on 07-06-2025 Neutrophils (Bld) [#/Vol] 8.8 10*3/uL High 2.0-7.7 [facility] Anion gap in Serum or Plasma Ordered By: Tigre Figueroa on 07-06-2025 Anion gap [Moles/Vol] 12 mmol/L 5-15 [facility] Automated lymphocyte count a s percentage of total leukocytesOrdered By: Tigre Figueroa on 07-06-2025 Lymphocytes/100 WBC Auto (Unsp spec) 7.3 % Low 19-41 [facility] BUN/creatinine ratioOrdered By: Tigre Figueroa on 07-06-2025 Urea nitrogen/Creatinine [Mass ratio] 24.3 mg/mg High 10-20 [facility] Basic Metabolic Profile (BMP )on 07-06-2025 BUN/CRE 24.3 RATIO High 10- [facility] Comment on above: Performed By: #### L [id number], L100.0100 #### [facility] [address] [place], [address] Calcium [Mass/Vol] 9.7 mg/dL Normal 7.6-11.0 [facility] Comment on above: Performed By: #### L [id number], L100.0100 #### [facility] [address] [place], [address] Chloride [Moles/Vol] 105 mmol/L Normal 98-108 [facility] Comment on above: Performed By: #### L [id number], L100.0100 #### [facility] [address] [place], [address] CO2 [Moles/Vol] 24.6 mmol/L Normal 21.0-32.0 [facility] Comment on above: Performed By: #### L [id number], L100.0100 #### [facility] [address] [place], [address] Creatinine [Mass/Vol] 1.16 mg/dL Normal 0.70-1.20 [facility] Comment on above: Performed By: #### L [id number], L100.0100 #### [facility] [address] [place], [address] ECRCL 66.65 ml/min Normal 50-250 [facility] Comment on above: Performed By: #### L [id number], L100.0100 #### [facility] [address] [place], [address] GAP 12 Normal 5-15 [facility] Comment on above: Performed By: #### L [id number], L100.0100 #### [facility] [address] [place], [address] GFR/1.73 sq M.predicted among non-blacks MDRD (S/P/Bld) [Vol rate/Area] 64 mL/min/{1.73_m2} Normal >60 [facility] Comment on above: Result Comment: mL/m in/1.73m2 CKD-EPI Creatinine Equation (2020) Performed By: #### L [id number], L100.0100 #### [facility] [address] [place], [address] Glucose [Mass/Vol] 162 mg/dL High 70-99 [facility] Comment on above: Performed By: #### L [id number], L100.0100 #### [facility] [address] [place], [address] Potassium [Moles/Vol] 4.5 mmol/L Normal 3.3-5.1 [facility] Comment on above: Performed By: #### L [id number], L100.0100 #### [facility] [address] [place], [address] Sodium [Moles/Vol] 142 mmol/L Normal 133-145 [facility] Comment on above: Performed By: #### L [id number], L100.0100 #### [facility] [address] [place], [address] Urea nitrogen [Mass/Vol] 28 mg/dL High 4-19 [facility] Comment on above: Performed By: #### L [id number], L100.0100 #### [facility] [address] [place], [address] Basophil percentageOrdered B y: Tigre Figueroa on 07-06-2025 Basophils/100 WBC (Bld) 0.4 % 0-1 [facility] Bedside Glucoseon 07-06-2025 FINGERSTICK GLU 192 mg/dL High 74-106 [facility] Comment on above: Result Comment: ROBEL BREWER OF PATIENT CARE PER NURSING PROTOCOL Performed By: #### L 501.080 #### [facility] [address] [place], [address] FINGERSTICK GLU 155 mg/dL High 74-106 [facility] Comment on above: Result Comment: ROBEL GEMENT OF PATIENT CARE PER NURSING PROTOCOL Performed By: #### L 501.080 #### [facility] [address] [place], [address] FINGERSTICK GLU 147 mg/dL High 74-106 [facility] Comment on above: Result Comment: ROBEL GEMENT OF PATIENT CARE PER NURSING PROTOCOL Performed By: #### L [id number], L100.0100 #### [facility] [address] [place], [address] CBC W/Diff, Automatedon 09-0 8-2024 Absolute Lymph 0.82 X10 3/uL Low 0.83-4.51 [facility] Comment on above: Performed By: #### L [id number], L100.0100 #### [facility] [address] [place], [address] Absolute Neut 8.8 X10 3/uL High 2.0-7.7 [facility] Comment on above: Performed By: #### L [id number], L100.0100 #### [facility] [address] [place], [address] Basophils/100 WBC (Bld) 0.4 % Normal 0-1 [facility] Comment on above: Performed By: #### L [id number], L100.0100 #### [facility] [address] [place], [address] Eosinophils/100 WBC (Bld) 2.5 % Normal 0-5 [facility] Comment on above: Performed By: #### L [id number], L100.0100 #### [facility] [address] [place], [address] Erythrocyte distribution width (RBC) [Ratio] 13.9 % Normal 11.6-14.6 [facility] Comment on above: Performed By: #### L [id number], L100.0100 #### [facility] [address] [place], [address] Hematocrit (Bld) [Volume fraction] 36.0 % Low 40-54 [facility] Comment on above: Performed By: #### L [id number], L100.0100 #### [facility] [address] [place], [address] Hemoglobin (Bld) [Mass/Vol] 11.7 g/dL Low 13.0-16.5 [facility] Comment on above: Performed By: #### L 500.4050, L100.0100 #### [facility] [address], [address] IG% 0.500 Normal 0.0-0.9 [facility] Comment on above: Result Comment: IG% - Immature Granulocytes (promyelocytes, myelocytes and metamyelocytes) > 1% indicates that a LEFT SHIFT is Present. Performed By: #### L 500.4050, L100.0100 #### [facility] [address] [place], [address] Lymphocytes/100 WBC (Bld) 7.3 % Low 19-41 [facility] Comment on above: Performed By: #### L [id number], L100.0100 #### [facility] [address] [place], [address] MCH (RBC) [Entitic mass] 31.8 pg Normal 27.0-32.0 [facility] Comment on above: Performed By: #### L [id number], L100.0100 #### [facility] [address] [place], [address] MCHC (RBC) [Mass/Vol] 32.5 g/dL Normal 32-36 [facility] Comment on above: Performed By: #### L [id number], L100.0100 #### [facility] [address] [place], [address] MCV (RBC) [Entitic vol] 97.8 fL High 80-94 [facility] Comment on above: Performed By: #### L [id number], L100.0100 #### [facility] [address] [place], [address] Monocytes/100 WBC (Bld) 10.5 % High 0-10 [facility] Comment on above: Performed By: #### L [id number], L100.0100 #### [facility] [address] [place], [address] Neutrophils/100 WBC (Bld) 78.8 % High 47-70 [facility] Comment on above: Performed By: #### L 500.4050, L100.0100 #### [facility] [address] [place], [address] Nucleated RBC (Bld) [#/Vol] 0 10*3/uL Normal 0-5 [facility] Comment on above: Performed By: #### L [id number], L100.0100 #### [facility] [address] [place], [address] Platelet mean volume (Bld) [Entitic vol] 9.4 fL Normal 6.2-12.0 [facility] Comment on above: Performed By: #### L 500.4050, L100.0100 #### [facility] [address] [place], [address] Platelets (Bld) [#/Vol] 303 10*3/uL Normal 150-450 [facility] Comment on above: Performed By: #### L 500.4050, L100.0100 #### [facility] [address] [place], [address] RBC (Bld) [#/Vol] 3.68 10*6/uL Low 4.6-6.2 [facility] Comment on above: Performed By: #### L 500.4050, L100.0100 #### [facility] [address] [place], [address] RDW SD 50.0 fl High 35.1-43.9 [facility] Comment on above: Performed By: #### L [id number], L100.0100 #### [facility] [address] [place], [address] WBC (Bld) [#/Vol] 11.2 10*3/uL High 4.4-11.0 [facility] Comment on above: Performed By: #### L [id number], L100.0100 #### [facility] [address] [place], [address] Carbon dioxide, total [Moles /volume] in Central venous bloodOrdered By: Tigre Figueroa on 07-06-2025 CO2 [Moles/Vol] 24.6 mmol/L 21.0-32.0 [facility] Chloride assayOrdered By: Winston Figueroa on 07-06-2025 Chloride [Moles/Vol] 105 mmol/L 98-108 [facility] Eosinophil percentageOrdered By: Tigre Figueroa on 07-06-2025 Eosinophils/100 WBC (Bld) 2.5 % 0-5 [facility] Erythrocyte distribution wid th ratioOrdered By: Tigre Figueroa on 07-06-2025 Erythrocyte distribution width (RBC) [Ratio] 13.9 % 11.6-14.6 [facility] Erythrocyte distribution wid th standard deviationOrdered By: Tigre Figueroa on 07-06-2025 Erythrocyte distribution width (RBC) [Ratio] 50.0 fl High 35.1-43.9 [facility] Glomerular filtration rate ( GFR) estimation/1.73 sq m using serum, plasma, or whole bOrdered By: Tigre Figueroa on 07-06-2025 GFR/1.73 sq M.predicted among non-blacks MDRD (S/P/Bld) [Vol rate/Area] 64 mL/min/{1.73_m2} >60 [facility] Comment on above: mL/min/1.73m2 CKD-EP I Creatinine Equation (2020) [facility] deOrdered By: Jerrell Esquivel on 07-06-2025 Glucose [Mass/Vol] 192 mg/dL High 74-106 [facility] Comment on above: MANAGEMENT OF PATIEN T CARE PER NURSING PROTOCOL Hematocrit Auto (Bld) [Volum e fraction]Ordered By: Tigre Figueroa on 07-06-2025 Hematocrit (Bld) [Volume fraction] 36.0 % Low 40-54 [facility] Hemoglobin measurementOrdere d By: Tigre Figueroa on 07-06-2025 Hemoglobin (Bld) [Mass/Vol] 11.7 g/dL Low 13.0-16.5 [facility] Immature granulocytes/100 WB C Auto (Bld)Ordered By: Tigre iFgueroa on 07-06-2025 Immature granulocytes/100 WBC (Bld) 0.500 % 0.0-0.9 [facility] Comment on above: IG% - Immature Granu locytes (promyelocytes, myelocytes and metamyelocytes) > 1% indicates that a LEFT SHIFT is Present. MCV (mean corpuscular volume ) determinationOrdered By: Tigre Figueroa on 07-06-2025 MCV (RBC) [Entitic vol] 97.8 fL High 80-94 [facility] Magnesiumon 07-06-2025 Magnesium [Mass/Vol] 2.1 mg/dL Normal 1.5-2.2 [facility] Comment on above: Performed By: #### L 501.080 #### [facility] [place], [address] Magnesium measurement (mass/ volume)Ordered By: Tigre Figueroa on 07-06-2025 Magnesium (Unsp spec) [Mass/Vol] 2.1 mg/dL 1.5-2.2 [facility] Mean corpuscular hemoglobin (MCH) determinationOrdered By: Tigre Figueroa on 07-06-2025 MCH (RBC) [Entitic mass] 31.8 pg 27.0-32.0 [facility] Mean corpuscular hemoglobin concentration (MCHC) determinationOrdered By: Tigre Figueroa on 07-06-2025 MCHC (RBC) [Mass/Vol] 32.5 g/dL 32-36 [facility] Mean platelet volume determi nationOrdered By: Tigre Figueroa on 07-06-2025 Platelet mean volume (Bld) [Entitic vol] 9.4 fL 6.2-12.0 [facility] Monocyte percentageOrdered B y: Tigre Figueroa on 07-06-2025 Monocytes/100 WBC (Bld) 10.5 % High 0-10 [facility] Neutrophil percentageOrdered By: Tirge Figueroa on 07-06-2025 Neutrophils/100 WBC (Bld) 78.8 % High 47-70 [facility] Nucleated red blood cell per centageOrdered By: Tigre Figueroa on 07-06-2025 Nucleated RBC/100 WBC (Bld) [Ratio] 0 % 0-5 [facility] Phosphoruson 07-06-2025 Phosphate [Mass/Vol] 3.1 mg/dL Normal 2.7-4.5 [facility] Comment on above: Performed By: #### L 501.080 #### [facility] [address] [place], [address] Platelet countOrdered By: Winston Figueroa on 07-06-2025 Platelets (Bld) [#/Vol] 303 10*3/uL 150-450 [facility] Potassium measurement (mass/ volume)Ordered By: Tigre Figueroa on 07-06-2025 Potassium (Unsp spec) [Mass/Vol] 4.5 mmol/L 3.3-5.1 [facility] RBC Auto (Bld) [#/Vol]Ordere d By: Tigre Figueroa on 07-06-2025 RBC (Bld) [#/Vol] 3.68 10*6/uL Low 4.6-6.2 [facility] Serum creatinine measurement (mass/volume)Ordered By: Tigre Figueroa on 07-06-2025 Creatinine [Mass/Vol] 1.16 mg/dL 0.70-1.20 [facility] Serum glucose measurement (m ass/volume)Ordered By: Tigre Figueroa on 07-06-2025 Glucose [Mass/Vol] 162 mg/dL High 70-99 [facility] Serum or plasma calcium sheldon urement (mass/volume)Ordered By: Tigre Figueroa on 07-06-2025 Calcium [Mass/Vol] 9.7 mg/dL 7.6-11.0 [facility] Serum or plasma urea nitroge n measurement (mass/volume)Ordered By: Tigre Figueroa on 07-06-2025 Urea nitrogen [Mass/Vol] 28 mg/dL High 4-19 [facility] Sodium levelOrdered By: Kit Figueroa on 07-06-2025 Sodium [Moles/Vol] 142 mmol/L 133-145 [facility] White blood cell (WBC) count Ordered By: Tigre Figueroa on 07-06-2025 WBC (Bld) [#/Vol] 11.2 10*3/uL High 4.4-11.0 [facility] Bedside Glucoseon 07-05-2025 FINGERSTICK GLU 155 mg/dL High 74-106 [facility] Comment on above: Result Comment: ROBEL GEMENT OF PATIENT CARE PER NURSING PROTOCOL Performed By: #### L 501.080 #### [facility] [address] [place], [address] FINGERSTICK GLU 174 mg/dL High 74-106 [facility] Comment on above: Result Comment: ROBEL GEMENT OF PATIENT CARE PER NURSING PROTOCOL Performed By: #### L [id number], L100.0100 #### [facility] [address] [place], [address] FINGERSTICK GLU 142 mg/dL High 74-106 [facility] Comment on above: Result Comment: ROBEL GEMENT OF PATIENT CARE PER NURSING PROTOCOL Performed By: #### L 501.080 #### [facility] [address] [place], [address] Bilirubin, totalOrdered By: Amarilis Tillman on 07-05-2025 Bilirubin [Mass/Vol] 2.30 mg/dL High 0.00-1.30 [facility] CBC W/Diff, Automatedon Absolute Lymph 0.79 X10 3/uL Low 0.83-4.51 [facility] Comment on above: Performed By: #### L 500.4050, L100.0100 #### [facility] [address] [place], [address] Absolute Neut 8.8 X10 3/uL High 2.0-7.7 [facility] Comment on above: Performed By: #### L 500.4050, L100.0100 #### [facility] [address] [place], [address] Basophils/100 WBC (Bld) 0.4 % Normal 0-1 [facility] Comment on above: Performed By: #### L 500.4050, L100.0100 #### [facility] [address] [place], [address] Eosinophils/100 WBC (Bld) 2.1 % Normal 0-5 [facility] Comment on above: Performed By: #### L 500.4050, L100.0100 #### [facility] [address] [place], [address] Erythrocyte distribution width (RBC) [Ratio] 13.9 % Normal 11.6-14.6 [facility] Comment on above: Performed By: #### L 500.4050, L100.0100 #### [facility] [address] [place], [address] Hematocrit (Bld) [Volume fraction] 38.3 % Low 40-54 [facility] Comment on above: Performed By: #### L 500.4050, L100.0100 #### [facility] [address] [place], [address] Hemoglobin (Bld) [Mass/Vol] 11.9 g/dL Low 13.0-16.5 [facility] Comment on above: Performed By: #### L 500.4050, L100.0100 #### [facility] [address] [place], [address] IG% 0.500 Normal 0.0-0.9 [facility] Comment on above: Result Comment: IG% - Immature Granulocytes (promyelocytes, myelocytes and metamyelocytes) > 1% indicates that a LEFT SHIFT is Present. Performed By: #### L 500.4050, L100.0100 #### [facility] [address] [place], [address] Lymphocytes/100 WBC (Bld) 7.2 % Low 19-41 [facility] Comment on above: Performed By: #### L 500.4050, L100.0100 #### [facility] [address] [place], [address] MCH (RBC) [Entitic mass] 30.7 pg Normal 27.0-32.0 [facility] Comment on above: Performed By: #### L 500.4050, L100.0100 #### [facility] [address] [place], [address] MCHC (RBC) [Mass/Vol] 31.1 g/dL Low 32-36 [facility] Comment on above: Performed By: #### L 500.4050, L100.0100 #### [facility] [address] [place], [address] MCV (RBC) [Entitic vol] 99.0 fL High 80-94 [facility] Comment on above: Performed By: #### L 500.4050, L100.0100 #### [facility] [address] [place], [address] Monocytes/100 WBC (Bld) 10.2 % High 0-10 [facility] Comment on above: Performed By: #### L 500.4050, L100.0100 #### [facility] [address] [place], [address] Neutrophils/100 WBC (Bld) 79.6 % High 47-70 [facility] Comment on above: Performed By: #### L 500.4050, L100.0100 #### [facility] [address] [place], [address] Nucleated RBC (Bld) [#/Vol] 0 10*3/uL Normal 0-5 [facility] Comment on above: Performed By: #### L 500.4050, L100.0100 #### [facility] [address] [place], [address] Platelet mean volume (Bld) [Entitic vol] 9.8 fL Normal 6.2-12.0 [facility] Comment on above: Performed By: #### L 500.4050, L100.0100 #### [facility] [address] [place], [address] Platelets (Bld) [#/Vol] 325 10*3/uL Normal 150-450 [facility] Comment on above: Performed By: #### L 500.4050, L100.0100 #### [facility] [address] [place], [address] RBC (Bld) [#/Vol] 3.87 10*6/uL Low 4.6-6.2 [facility] Comment on above: Performed By: #### L 500.4050, L100.0100 #### [facility] [address] [place], [address] RDW SD 50.5 fl High 35.1-43.9 [facility] Comment on above: Performed By: #### L 500.4050, L100.0100 #### [facility] [address] [place], [address] WBC (Bld) [#/Vol] 11.0 10*3/uL Normal 4.4-11.0 [facility] Comment on above: Performed By: #### L 500.4050, L100.0100 #### [facility] [address] [place], [address] Comprehensive Metabolic Prof ilon 07-05-2025 Albumin [Mass/Vol] 3.6 g/dL Normal 3.4-4.8 [facility] Comment on above: Performed By: #### L 500.4050, L100.0100 #### [facility] [address] [place], [address] Albumin/Globulin [Mass ratio] 1.2 {ratio} Normal 0.9-2.4 [facility] Comment on above: Performed By: #### L 500.4050, L100.0100 #### [facility] [address] [place], [address] ALK PHOS 125 U/L Normal 40-129 [facility] Comment on above: Performed By: #### L 500.4050, L100.0100 #### [facility] [address] [place], [address] ALT [Catalytic activity/Vol] 17 U/L Normal <=46 [facility] Comment on above: Performed By: #### L 500.4050, L100.0100 #### [facility] [address] [place], [address] AST [Catalytic activity/Vol] 20 U/L Normal <=37 [facility] Comment on above: Performed By: #### L 500.4050, L100.0100 #### [facility] [address] [place], [address] Bilirubin [Mass/Vol] 2.30 mg/dL High 0.00-1.30 [facility] Comment on above: Performed By: #### L 500.4050, L100.0100 #### [facility] [address] [place], [address] BUN/CRE 23.4 RATIO High 10-20 [facility] Comment on above: Performed By: #### L 500.4050, L100.0100 #### [facility] [address] [place], [address] Calcium [Mass/Vol] 9.2 mg/dL Normal 7.6-11.0 [facility] Comment on above: Performed By: #### L 500.4050, L100.0100 #### [facility] [address] [place], [address] Chloride [Moles/Vol] 106 mmol/L Normal 98-108 [facility] Comment on above: Performed By: #### L 500.4050, L100.0100 #### [facility] [address] [place], [address] CO2 [Moles/Vol] 23.1 mmol/L Normal 21.0-32.0 [facility] Comment on above: Performed By: #### L 500.4050, L100.0100 #### [facility] [address] [place], [address] Creatinine [Mass/Vol] 1.13 mg/dL Normal 0.70-1.20 [facility] Comment on above: Performed By: #### L 500.4050, L100.0100 #### [facility] [address] [place], [address] ECRCL 68.60 ml/min Normal 50-250 [facility] Comment on above: Performed By: #### L 500.4050, L100.0100 #### [facility] [address] [place], [address] GAP 12 Normal 5-15 [facility] Comment on above: Performed By: #### L 500.4050, L100.0100 #### [facility] [address] [place], [address] GFR/1.73 sq M.predicted among non-blacks MDRD (S/P/Bld) [Vol rate/Area] 67 mL/min/{1.73_m2} Normal >60 [facility] Comment on above: Result Comment: mL/m in/1.73m2 CKD-EPI Creatinine Equation (2020) Performed By: #### L 500.4050, L100.0100 #### [facility] [address] [place], [address] Globulin (S) [Mass/Vol] 3.0 g/dL Normal 2.2-4.[address] [facility] Comment on above: Performed By: #### L 500.4050, L100.0100 #### [facility] [address] [place], [address] Glucose [Mass/Vol] 152 mg/dL High 70-99 [facility] Comment on above: Performed By: #### L 500.4050, L100.0100 #### [facility] [address] [place], [address] Potassium [Moles/Vol] 4.3 mmol/L Normal 3.3-5.1 [facility] Comment on above: Performed By: #### L 500.4050, L100.0100 #### [facility] [address] [place], [address] Sodium [Moles/Vol] 141 mmol/L Normal 133-145 [facility] Comment on above: Performed By: #### L 500.4050, L100.0100 #### [facility] [address] [place], [address] T PROT 6.6 g/dL Normal 5.9-8.4 [facility] Comment on above: Performed By: #### L 500.4050, L100.0100 #### [facility] [address] [place], [place], [address] Urea nitrogen [Mass/Vol] 26 mg/dL High 4-19 [facility] Comment on above: Performed By: #### L 500.4050, L100.0100 #### [facility] [address] [place], [address] Laboratory - Chemistry and C hemistry - challengeOrdered By: Amarilis Tillman on 07-05-2025 AST [Catalytic activity/Vol] 20 U/L <38 [facility] Serum globulin measurementOr dered By: Amarilis Tillman on 07-05-2025 Globulin (S) [Mass/Vol] 3.0 g/dL 2.2-4.[address] [facility] Serum or plasma alanine cardoza otransferase (ALT) measurementOrdered By: Amarilis Tillman on 07-05-2025 ALT [Catalytic activity/Vol] 17 U/L <47 [facility] Serum or plasma albumin sheldon urement (mass/volume)Ordered By: Amarilis Tillman on 07-05-2025 Albumin [Mass/Vol] 3.6 g/dL 3.4-4.8 [facility] Serum or plasma albumin/glob ulin mass ratioOrdered By: Amarilis Tillman 07-05-2025 Albumin/Globulin [Mass ratio] 1.2 {ratio} 0.9-2.4 [facility] Serum or plasma alkaline rose marie sphatase measurementOrdered By: Amarilis Tillman on 07-05-2025 ALP [Catalytic activity/Vol] 125 U/L 40-129 [facility] Total proteinOrdered By: Nitesh Tillman on 07-05-2025 Protein [Mass/Vol] 6.6 g/dL 5.9-8.4 [facility] Absolute lymphocyte countOrd ered By: Randy Gibson on 07-04-2025 Lymphocytes Auto (Unsp spec) [#/Vol] 0.70 10*3/uL Low 0.83-4.51 [facility] Absolute neutrophil countOrd ered By: Randy Gibson on 07-04-2025 Neutrophils (Bld) [#/Vol] 8.1 10*3/uL High 2.0-7.7 [facility] Anion gap in Serum or Plasma Ordered By: Randy Gibson on 07-04-2025 Anion gap [Moles/Vol] 11 mmol/L 5-15 [facility] Automated blood erythrocyte countOrdered By: Randy Gibson on 07-04-2025 RBC (Bld) [#/Vol] 3.78 10*6/uL Low 4.6-6.2 [facility] Comment on above: Performed By: #### L 500.4050, L100.0100 #### [facility] [address], [address] Automated blood hematocrit ( percentage)Ordered By: Randy Gibson on 07-04-2025 Hematocrit (Bld) [Volume fraction] 37.2 % Low 40-54 [facility] Comment on above: Performed By: #### L 500.4050, L100.0100 #### [facility] [address] [place], [address] Automated lymphocyte count a s percentage of total leukocytesOrdered By: Randy Gibson on 07-04-2025 Lymphocytes/100 WBC Auto (Unsp spec) 6.9 % Low 19-41 [facility] BUN/creatinine ratioOrdered By: Randy Gibson on 07-04-2025 Urea nitrogen/Creatinine [Mass ratio] 21.7 mg/mg High 10-20 [facility] Basophil percentageOrdered B y: Randy Gibsno on 07-04-2025 Basophils/100 WBC (Bld) 0.5 % Normal 0-1 [facility] Comment on above: Performed By: #### L 500.4050, L100.0100 #### [facility] [address] [place], [address] Bedside Glucoseon 07-04-2025 FINGERSTICK GLU 157 mg/dL High 74-106 [facility] Comment on above: Result Comment: ROBEL GEMENT OF PATIENT CARE PER NURSING PROTOCOL Performed By: #### L 501.080 #### [facility] [address] [place], [address] FINGERSTICK GLU 163 mg/dL High 74-106 [facility] Comment on above: Result Comment: ROBEL GEMENT OF PATIENT CARE PER NURSING PROTOCOL Performed By: #### L 501.080 #### [facility] [address] [place], [address] FINGERSTICK GLU 165 mg/dL High 74-106 [facility] Comment on above: Result Comment: ROBEL GEMENT OF PATIENT CARE PER NURSING PROTOCOL Performed By: #### L 501.080 #### [facility] [address] [place], [address] FINGERSTICK GLU 171 mg/dL High 74-106 [facility] Comment on above: Result Comment: ROBEL GEMENT OF PATIENT CARE PER NURSING PROTOCOL Performed By: #### L 501.080 #### [facility] [address] [place], [address] Bilirubin, totalOrdered By: Randy Gibson on 07-04-2025 Bilirubin [Mass/Vol] 1.47 mg/dL High 0.00-1.30 [facility] Comment on above: Performed By: #### L 500.4050, L100.0100 #### [facility] [address] [place], [address] Brain/Head without Contrasto n 07-04-2025 Brain/Head without Contrast [facility] [address] [place] [address] Brain/Head without Contrast MR#: [id number] Acct: [id number] Name: KANDI GOMEZ Rep #: [id number] : 1945 M 80 From: Óscar cleary MD PCP: Dr. Billy Braga, DO Status: REG ER Study: Brain/Head without Contrast Date of Exam: 04/22 Exam# [id number] Ordering Dr: Randy Gibson DO PROCEDURE: BRAIN/HEAD WITHOUT CONTRAST 07/04/2025 REASON FOR EXAM: FALL, HEAD TRAUMA TECHNIQUE: Procedure Code: CTBR Modality: CT Procedure: BRAIN/HEAD WITHOUT CONTRAST Coronal and Sagittal reconstruction series were provided. One or more dose reduction techniques were used (e.g., Automated exposure control, adjustment of the mA and/or kV according to patient size, use of iterative reconstruction technique. RADIATION DOSE SUMMARY: CTDlvol: 28.14 mGy DLP: 599.21 mGycm COMPARISON: 07-03-2025 FINDINGS: Accentuated bilateral cerebral periventricular deep white matter hypodensities suggesting hypoperfusion with scattered hypodense foci suggestive of microvascular ischemic changes. Salvador-white matter differentiation is maintained. Right cerebellar small area of encephalomalacia. Otherwise, normal CT appearance of the posterior fossa structures. No intracerebral or extra axial hemorrhage. No definite calvarial fractures. Unremarkable ventricular system. Prominent cortical sulci and extra-axial CSF spaces No midline shifts or deformity. The osseous structures in the skull base are unremarkable. The scanned paranasal sinuses show lamellar and focal mucosal thickening of the maxillary antra and ethmoidal air cells. CT/Brain/Head without Contrast IMPRESSION: No intracerebral or extra axial hemorrhage. No acute cerebrovascular insult. If clinical symptoms persist, further evaluation with MRI may be considered as clinically warranted. Bilateral cerebral microvascular ischemic changes with mild brain involutional changes. stable Reading Location: [place] [address] CC: Dr. Billy Braga DO; Dr. Randy Gibson DO Cloth Bin Packer: Signed Normal [facility] CBC W/Diff, Automatedon Absolute Lymph 0.70 X10 3/uL Low 0.83-4.51 [facility] Comment on above: Performed By: #### L 500.4050, L100.0100 #### [facility] [address] [place], [address] Absolute Neut 8.1 X10 3/uL High 2.0-7.7 [facility] Comment on above: Performed By: #### L 500.4050, L100.0100 #### [facility] [address] [place], [address] IG% 0.900 Normal 0.0-0.9 [facility] Comment on above: Result Comment: IG% - Immature Granulocytes (promyelocytes, myelocytes and metamyelocytes) > 1% indicates that a LEFT SHIFT is Present. Performed By: #### L 500.4050, L100.0100 #### [facility] [address] [place], [address] Lymphocytes/100 WBC (Bld) 6.9 % Low 19-41 [facility] Comment on above: Performed By: #### L 500.4050, L100.0100 #### [facility] [address] [place], [address] Nucleated RBC (Bld) [#/Vol] 0 10*3/uL Normal 0-5 [facility] Comment on above: Performed By: #### L 500.4050, L100.0100 #### [facility] [address] [place], [address] RDW SD 49.6 fl High 35.1-43.9 [facility] Comment on above: Performed By: #### L 500.4050, L100.0100 #### [facility] [address] [place], [address] Carbon dioxide, total [Moles /volume] in Central venous bloodOrdered By: Randy Gibson on 07-04-2025 CO2 [Moles/Vol] 23.6 mmol/L Normal 21.0-32.0 [facility] Comment on above: Performed By: #### L 500.4050, L100.0100 #### [facility] [address] [place], [address] Chloride assayOrdered By: Ramsey Gibson on 07-04-2025 Chloride [Moles/Vol] 106 mmol/L Normal 98-108 [facility] Comment on above: Performed By: #### L 500.4050, L100.0100 #### [facility] [address] [place], [address] Comprehensive Metabolic Prof ilon 07-04-2025 ALK PHOS 129 U/L Normal 40-129 [facility] Comment on above: Performed By: #### L 500.4050, L100.0100 #### [facility] [address] [place], [address] BUN/CRE 21.7 RATIO High 10-20 [facility] Comment on above: Performed By: #### L 500.4050, L100.0100 #### [facility] [address] [place], [address] ECRCL 70.79 ml/min Normal 50-250 [facility] Comment on above: Performed By: #### L 500.4050, L100.0100 #### [facility] [address] [place], [address] GAP 11 Normal 5-15 [facility] Comment on above: Performed By: #### L 500.4050, L100.0100 #### [facility] [address] [place], [address] Potassium [Moles/Vol] 4.3 mmol/L Normal 3.3-5.1 [facility] Comment on above: Performed By: #### L 500.4050, L100.0100 #### [facility] [address] [place], [address] T PROT 6.5 g/dL Normal 5.9-8.4 [facility] Comment on above: Performed By: #### L 500.4050, L100.0100 #### [facility] [address] [place], [address] Comprehensive Metabolic Prof ilOrdered By: Randy Gibson on 07-04-2025 AST [Catalytic activity/Vol] 24 U/L Normal <=37 [facility] Comment on above: Performed By: #### L 500.4050, L100.0100 #### [facility] [address] [place], [address] Consultation - Orthopedicson 07-04-2025 Consultation - Orthopedics [facility] Medical Records Department [address] [place] [address] Consultation - Orthopedics 07/04/25 0930 MR#: [id number] Acct: [id number] Name: KANDI GOMEZ Rep #: [id number] : 1945 80 From: Umer Rivera MD PCP: Dr. Billy Braga, DO Status:ADM LILY Location: [place] [address] HPI Consult Data Date of Consult: 07/04/25 HPI Narrative HPI Narrative: KANDI GOMEZ is a 80 M who presents with L proximal humerus fracture after multiple falls. [facility] Medical History (Updated 07/04/25 @ 08:[address] Tigre Figueroa MD) PAF (paroxysmal atrial fibrillation) Obesity Chronic anemia CAD (coronary artery disease) Hypothyroidism Diabetes mellitus type II, controlled HLD (hyperlipidemia) HTN (hypertension) Valvular heart disease Home Medications ???Medication ???Instructions ???Recorded ???Last Taken ???Type metformin 500 mg tablet 500 mg PO DAILY DIABETES 02/21/18 02/21/18 History 500 MG metoprolol tartrate 25 mg tablet 25 mg PO BID BLOOD PRESSURE 02/21/18 History 25 MG cholecalciferol (vitamin D3) 50 2,000 unit PO DAILY 03/26/18 Unkno wn History mcg (2,000 unit) capsule (Vitamin D3) apixaban 5 mg tablet (Eliquis) 5 mg PO BID 07/03/25 Unknown Histo ry aspirin 81 mg capsule 81 mg PO DAILY 07/03/25 Unknown Hi story atorvastatin 10 mg tablet (Lipitor) 10 mg PO QHS 07/03/25 Unknown H istory furosemide 40 mg tablet (Lasix) 20 mg PO DAILY 07/03/25 Unknown Hi story levothyroxine 75 mcg tablet 75 mcg PO DAILY 07/03/25 Unknown H istory (Synthroid) lisinopril 10 mg tablet 5 mg PO DAILY 07/03/25 Unknown His tory tamsulosin 0.4 mg capsule 0.4 mg PO DAILY 07/03/25 Unknown H istory amlodipine 2.5 mg tablet 2.5 mg PO DAILY 07/04/25 Unknown H istory Allergy/AdvReac Type Severity Reaction Status Date / Time Penicillins Allergy Other Verified 07/03/25 06:45 Family History Mother Cancer Father Heart failure Surgical History History of tonsillectomy and adenoidectomy S/P AVR (aortic valve replacement) S/P CABG x 1 Social History household members: spouse Smoking Status: Never smoker alcohol intake: never substance use type: does not use Vital Signs Vital Signs Vital Signs: 07/04/25 01:17 07/04/25 01:20 07/04/25 02:55 Temperature 97.7 F L Temperature Source Oral Pulse Rate 73 68 Respiratory Rate 20 H 20 H Respiratory Effort Normal Non-Labored Respiratory Depth Normal Respiratory Pattern Normal Blood Pressure 142/72 H 114/65 Blood Pressure Mean 95 81 Blood Pressure Source Blood Pressure Position Blood Pressure Location Pulse Ox 92 90 Oxygen Delivery Method Room Air Room Air Room Air Oxygen Flow Rate (L/min) 07/04/25 04:00 07/04/25 04:37 07/04/25 05:35 Temperature 97.6 F L 97.7 F L Temperature Source Oral Pulse Rate 60 58 L 67 Respiratory Rate 14 15 20 H Respiratory Effort Respiratory Depth Respiratory Pattern Blood Pressure 125/70 H 108/54 L 125/67 H Blood Pressure Mean 88 72 86 Blood Pressure Source Monitor Blood Pressure Position Semi-Fowlers Blood Pressure Location Right Arm Pulse Ox 94 93 97 Oxygen Delivery Method Room Air Nasal Cannula Oxygen Flow Rate (L/min) 2 07/04/25 05:41 07/04/25 07:58 07/04/25 09:00 Temperature Temperature Source Pulse Rate Respiratory Rate Respiratory Effort Normal Non-Labored Respiratory Depth Normal Respiratory Pattern Normal Blood Pressure Blood Pressure Mean Blood Pressure Source Blood Pressure Position Blood Pressure Location Pulse Ox Oxygen Delivery Method Nasal Cannula Nasal Cannula Nasal Cannula Oxygen Flow Rate (L/min) 2 2 2 Weight Weight: 261 lb 6 oz Body Mass Index (BMI) 38.5 Lab / Micro Data 07/04/25 02:00 07/04/25 02:00 Labs: Laboratory Results - last 24 hr 07/04/25 02:00: WBC 10.1, RBC 3.78 L, Hgb 11.9 L, Hct 37.2 L, MCV 98.4 H, MCH 31.5, MCHC 32.0, RDW Std Deviation 49.6 H, RDW Coeff of Mukul 13.6, Plt Count 269, MPV 9.3, Immature Gran % (Auto) 0.900, N eut % (Auto) 79.6 H, Lymph % (Auto) 6.9 L, Crosby % (Auto) 9.9, Eos % (Auto) 2.2, Baso % (Auto) 0.5, A bsolute Neuts (auto) 8.1 H, Absolute Lymphs (auto) 0.70 L, Nucleated RBC % 0, Sodium 140, Potassium 4.3, Chloride 106, Carbon Dioxide 23.6, Anion Gap 11, BUN 25 H, Creatinine 1.17, Estim Creat Clear Calc 70.79, Est GFR (MDRD) Non-Af 64, BUN/Creatinine Ratio 21.7 H, Glucose 195 H, Calcium 9.1, Magnesium 1.8, Total Bilirubin 1.47 H, AST 24, ALT 19, Alkaline Phosphatase 129, Total Protein 6.5, Albumin 3.8, Globulin 2.7, Albu (more content not included)... Normal [facility] Emergency Department Summary on 07-04-2025 Emergency Department Summary [facility] Medical Records Department [address] [place] [address] Emergency Department Summary 07/04/25 MR#: [id number] Acct: [id number] Name: KANDI GOMEZ Rep #: [id number] : 1945 80 From: Randy Gibson DO PCP: Dr. Billy Braga DO Status:REG ER Location: ED HPI History of Present Illness [facility] Medical History Tonsil and adenoid disease, chronic Hernia Coronary atherosclerosis due to severely calcified coronary lesion Home Medications ???Medication ???Instructions ???Recorded ???Last Taken ???Type metformin 500 mg tablet 500 mg PO BIDCM DIABETES 02/21/18 02/21/18 History 500 MG metoprolol tartrate 25 mg tablet 25 mg PO BID BLOOD PRESSURE 02/21/18 History 25 MG cholecalciferol (vitamin D3) 50 2,000 unit PO DAILY 03/26/18 Unkno wn History mcg (2,000 unit) capsule (Vitamin D3) apixaban 5 mg tablet (Eliquis) 5 mg PO BID 07/03/25 Unknown Histo ry aspirin 81 mg capsule 81 mg PO DAILY 07/03/25 Unknown Hi story atorvastatin 10 mg tablet (Lipitor) 10 mg PO QHS 07/03/25 Unknown H istory furosemide 40 mg tablet (Lasix) 20 mg PO DAILY 07/03/25 Unknown Hi story levothyroxine 75 mcg tablet 75 mcg PO DAILY 07/03/25 Unknown H istory (Synthroid) lisinopril 10 mg tablet 10 mg PO DAILY 07/03/25 Unknown Hi story tamsulosin 0.4 mg capsule 0.4 mg PO DAILY 07/03/25 Unknown H istory Allergy/AdvReac Type Severity Reaction Status Date / Time Penicillins Allergy Other Verified 07/03/25 06:45 Family History Mother Cancer Father Heart failure Surgical History History of tonsillectomy and adenoidectomy S/P AVR (aortic valve replacement) S/P CABG x 1 Social History household members: spouse Smoking Status: Never smoker alcohol intake: never substance use type: does not use EXAM Physical Exam Const Vital Signs: 07/04/25 01:17 07/04/25 01:20 07/04/25 02:55 Temperature 97.7 F L Temperature Source Oral Pulse Rate 73 68 Respiratory Rate 20 H 20 H Respiratory Effort Normal Non-Labored Respiratory Depth Normal Respiratory Pattern Normal Blood Pressure 142/72 H 114/65 Blood Pressure Mean 95 81 Pulse Ox 92 90 Oxygen Delivery Method Room Air Room Air Room Air MDM MDM MDM Narrative Medical decision making narrative: HISTORY OF PRESENT ILLNESS: Chief complaint: Fall, left shoulder pain 80-year-old male history of CAD, aortic valve replacement on Eliquis presents with fall. Notes he tripped going up 2 stairs. Denies head trauma or loss of consciousness. Denies syncope prior to fall. REVIEW OF SYSTEMS: Pertinent positives: Fall, left arm pain Pertinent negatives: As per HPI PHYSICAL EXAM: Nursing triage notes reviewed, Vital signs reviewed Primary Survey Airway: Intact Breathing: Bilateral breath sounds Circulation: Palpable bilateral femorals, Palpable bilateral radial, Palpable bilateral DP and Palpable bilateral PT Disability / Spine precautions GCS Score: Eye Openin Verbal Response: 5 Motor Response: 6 Secondary Survey Constitutional: Please see MDM Head: Atraumatic, Midface stable, NO jaw malocclusion, No Cephalohematoma, and No Lacerations noted Eye: Pupils equal round and reactive to light, Extraocular muscles intact and No periorbital ecchymosis or stepoff, no evidence of entrapment ENT: Oropharynx clear, no lacerations, no hemotympanum, no raccoon eyes or mcclain sign Cervical spine / Neck: No cervical spine bony tenderness, crepitance, or stepoff deformity Trachea midline Lungs: Clear to auscultation, No asymmetric rise and No crepitus, no flail chest Cardiac: Regular rate and rhythm and No murmurs Abdomen: Soft, Nontender and No rebound Pelvis: Pelvis stable to compression : No evidence of genital injury Back: No midline bony tenderness to thoracic/lumbar/sacral spines Neuro: At baseline, has movement in all 4 extremities, appears to have sensation all 4 extremities, 2+ patellar reflexes bilaterally. Extremities: Obvious deformity to left upper extremity, TTP over proximal humerus. Left upper extremity otherwise warm and well-perfused. Psych: Normal affect Nursing triage notes reviewed, Vital signs reviewed MEDICAL DECISION MAKING: Chief Complaint: please see HPI External records reviewed: Reviewed prior imaging studies Factors affecting care: Social determinants of health: none History obtained from others: EMS Consults: Internal Medicine (Dr. Tillman), orthopedic surgery (Dr. Rivera) [facility] Narrative: The patient (more content not included)... Normal [facility] Eosinophil percentageOrdered By: Randy Gibson on 07-04-2025 Eosinophils/100 WBC (Bld) 2.2 % Normal 0-5 [facility] Comment on above: Performed By: #### L 500.4050, L100.0100 #### [facility] [address] [place], [address] Erythrocyte distribution wid th ratioOrdered By: Randy Gibson on 07-04-2025 Erythrocyte distribution width (RBC) [Ratio] 13.6 % Normal 11.6-14.6 [facility] Comment on above: Performed By: #### L 500.4050, L100.0100 #### [facility] [address] [place], [address] Erythrocyte distribution wid th standard deviationOrdered By: Randy Gibson on 07-04-2025 Erythrocyte distribution width (RBC) [Ratio] 49.6 fl High 35.1-43.9 [facility] Glomerular filtration rate ( GFR) estimation/1.73 sq m using serum, plasma, or whole bOrdered By: Randy Gibson on 07-04-2025 GFR/1.73 sq M.predicted among non-blacks MDRD (S/P/Bld) [Vol rate/Area] 64 mL/min/{1.73_m2} Normal >60 [facility] Comment on above: mL/min/1.73m2 CKD-EP I Creatinine Equation (2020) Result Comment: mL/m in/1.73m2 CKD-EPI Creatinine Equation (2020) Performed By: #### L 500.4050, L100.0100 #### [facility] [address] [place], [address] H AND P Exam - Hospitaliston 07-04-2025 H&P Exam - Hospitalist [facility] Medical Records Department [address] [place] [address] H P Exam - Hospitalist 07/04/25 0413 MR#: [id number] Acct: [id number] Name: KANDI GOMEZ Rep #: [id number] : 1945 80 From: Amarilis Tillman MD PCP: Dr. Billy Braga, DO Status:REG ER Location: ED HPI - General General Date of Admission: 07/04/25 Date of Service: 07/04/25 Chief Complaint: Fall, LUE pain/shoulder pain. HPI Narrative The patient is a 80 y/o M w/ PMHx: PAF, Obesity, CAD s/p CABG x 1, Valvular Heart Disease s/p AVR, CKD stage II/III, Diabetes mellitus type II, HTN, HLD, Hypothyroidism, Chronic anemia, recent ED evaluation 07/03/2025 earlier in the morning following mechanical fall noting a been letting the dog out in the morning when he tripped over some boards landing on the concrete with no head trauma or loss of consciousness but he had a laceration to his right hand prompting ED evaluation at that time with laceration repaired with unremarkable plain film discharged to home now re-presenting to the [facility] ED on 07/04/2025 with another mechanical fall noting that he tripped going up 2 stairs landing on his left side with his hand outstretched with significant pain to the LUE/L shoulder following and debility following prompting ED return for evaluation. Workup in the ED included T97.7, heart rate 73, BP 142/72, respiratory rate 20, 92% on room air with most recent repeat vitals heart rate 68, BP 114/65, respiratory rate 20, 90% on room air, CBC with WC 10.1, hemoglobin 0.9, MCV 98.4, platelet 269 with left shift and lymphopenia, CMP with BUN/creatinine 25/1.17, GFR 64, glucose 195, T. bili 1.47 otherwise hepatic profile not marked appearing, CT brain with no acute intracranial findings with chronic stable findings, CT cervical spine with no newly developed vertebral fractures, structural collapse or dislocation, plain film of the left humerus and shoulder with an acute comminuted displaced fracture of the humeral surgical neck with overlying soft tissue edema and swelling. In the ED patient ministered morphine 4 mg IV x 1. Patient's upon arrival rating pain 10 out of 10 in severity. In the ED sling to the left upper extremity placed. ED discussed case with orthopedic surgeon Dr. Rivera who recommended sling with no acute surgical plans per ED report. [facility] Medical History (Updated 07/04/25 @ 04:[address] Amarilis Tillman MD) PAF (paroxysmal atrial fibrillation) Obesity Chronic anemia CAD (coronary artery disease) Hypothyroidism Diabetes mellitus type II, controlled HLD (hyperlipidemia) HTN (hypertension) Valvular heart disease Home Medications ???Medication ???Instructions ???Recorded ???Last Taken ???Type metformin 500 mg tablet 500 mg PO BIDCM DIABETES 02/21/18 02/21/18 History 500 MG metoprolol tartrate 25 mg tablet 25 mg PO BID BLOOD PRESSURE 02/21/18 History 25 MG cholecalciferol (vitamin D3) 50 2,000 unit PO DAILY 03/26/18 Unkno wn History mcg (2,000 unit) capsule (Vitamin D3) apixaban 5 mg tablet (Eliquis) 5 mg PO BID 07/03/25 Unknown Histo ry aspirin 81 mg capsule 81 mg PO DAILY 07/03/25 Unknown Hi story atorvastatin 10 mg tablet (Lipitor) 10 mg PO QHS 07/03/25 Unknown H istory furosemide 40 mg tablet (Lasix) 20 mg PO DAILY 07/03/25 Unknown Hi story levothyroxine 75 mcg tablet 75 mcg PO DAILY 07/03/25 Unknown H istory (Synthroid) lisinopril 10 mg tablet 10 mg PO DAILY 07/03/25 Unknown Hi story tamsulosin 0.4 mg capsule 0.4 mg PO DAILY 07/03/25 Unknown H istory Allergy/AdvReac Type Severity Reaction Status Date / Time Penicillins Allergy Other Verified 07/03/25 06:45 Family History Mother Cancer Father Heart failure Surgical History History of tonsillectomy and adenoidectomy S/P AVR (aortic valve replacement) S/P CABG x 1 Social History household members: spouse Smoking Status: Never smoker alcohol intake: never substance use type: does not use ROS ROS Narrative Admission Review of Systems: CONSTITUTIONAL: No weight loss, fever, chills, + weakness or fatigue. HEENT: Eyes: No visual loss, blurred vision, double vision or yellow sclerae. Ears, Nose, Throat: No hearing loss, sneezing, congestion, runny nose or sore throat. SKIN: No rash or itching, lesions except + right hand with recent laceration repaired with dressing in place with no drainage, significant very stage ecchymoses and abrasion with recent fall with left-sided humeral neck fracture. CARDIOVASCULAR: No chest pain, chest pressure or chest discomfort, palpitations, edema, orthopnea, syncopal events. RESPIRATORY: No shortness of breath, cough or (more content not included)... Normal [facility] Hemoglobin measurementOrdere d By: Randy Gibson on 07-04-2025 Hemoglobin (Bld) [Mass/Vol] 11.9 g/dL Low 13.0-16.5 [facility] Comment on above: Performed By: #### L 500.4050, L100.0100 #### [facility] [address] [facility] [place], [address] Humerus min 2 Viewson 2024 Humerus min 2 Views [facility] Imaging Services [address] [place] [address] Humerus min 2 Views MR#: [id number] Acct: [id number] Name: KANDI GOMEZ Rep #: [id number] : 1945 M 80 From: Óscar cleary MD PCP: Dr. Billy Braga DO Status: REG ER Study: Humerus min 2 Views Date of Exam: 07/04/25 Exam# [id number] Ordering Dr: Randy Gibson DO PROCEDURE: HUMERUS MIN 2 VIEWS 07/04/2025 REASON FOR EXAM: PAIN AFTER FALL TECHNIQUE: Procedure Code: RADHUM Modality: DX Procedure: HUMERUS MIN 2 VIEWS Laterality: LEFT. COMPARISON: NONE. FINDINGS: Acute comminuted displaced fractures of the humeral surgical neck. Overlying soft tissue edema and swelling. No dislocation is seen. RAD/Humerus min 2 Views IMPRESSION: Acute comminuted displaced fractures of the humeral surgical neck. Overlying soft tissue edema and swelling. Reading [facility] CC: Dr. Billy Braga DO; Dr. Randy Gibson DO Cloth Bin Packer: Signed Normal [facility] Immature granulocytes/100 WB C Auto (Bld)Ordered By: Randy Gibson on 07-04-2025 Immature granulocytes/100 WBC (Bld) 0.900 % 0.0-0.9 [facility] Comment on above: IG% - Immature Granu locytes (promyelocytes, myelocytes and metamyelocytes) > 1% indicates that a LEFT SHIFT is Present. MCV (mean corpuscular volume ) determinationOrdered By: Randy Gibson on 07-04-2025 MCV (RBC) [Entitic vol] 98.4 fL High 80-94 [facility] Comment on above: Performed By: #### L 500.4050, L100.0100 #### [facility] [address] [place], [address] Magnesiumon 07-04-2025 Magnesium [Mass/Vol] 1.8 mg/dL Normal 1.5-2.2 [facility] Comment on above: Order Comment: Comme nts: may add to ED labs Performed By: #### L 501.5200 #### [facility] [address] [place], [address] Mean corpuscular hemoglobin (MCH) determinationOrdered By: Randy Gibson on 07-04-2025 MCH (RBC) [Entitic mass] 31.5 pg Normal 27.0-32.0 [facility] Comment on above: Performed By: #### L 500.4050, L100.0100 #### [facility] [address] [place], [address] Mean corpuscular hemoglobin concentration (MCHC) determinationOrdered By: Randy Gibson on 07-04-2025 MCHC (RBC) [Mass/Vol] 32.0 g/dL Normal 32-36 [facility] Comment on above: Performed By: #### L 500.4050, L100.0100 #### [facility] [address] [place], [address] Mean platelet volume determi nationOrdered By: Randy Gibson on 07-04-2025 Platelet mean volume (Bld) [Entitic vol] 9.3 fL Normal 6.2-12.0 [facility] Comment on above: Performed By: #### L 500.4050, L100.0100 #### [facility] [address] [place], [address] Monocyte percentageOrdered B y: Randy Gibson on 07-04-2025 Monocytes/100 WBC (Bld) 9.9 % Normal 0-10 [facility] Comment on above: Performed By: #### L 500.4050, L100.0100 #### [facility] [address] [place], [address] Neutrophil percentageOrdered By: Randy Gibson on 07-04-2025 Neutrophils/100 WBC (Bld) 79.6 % High 47-70 [facility] Comment on above: Performed By: #### L 500.4050, L100.0100 #### [facility] [address] [place], [address] Nucleated red blood cell per centageOrdered By: Randy Gibson on 07-04-2025 Nucleated RBC/100 WBC (Bld) [Ratio] 0 % 0-5 [facility] Platelet countOrdered By: Ramsey Gibson on 07-04-2025 Platelets (Bld) [#/Vol] 269 10*3/uL Normal 150-450 [facility] Comment on above: Performed By: #### L 500.4050, L100.0100 #### [facility] [address] [place], [address] Potassium measurement (mass/ volume)Ordered By: Randy Gibson on 07-04-2025 Potassium (Unsp spec) [Mass/Vol] 4.3 mmol/L 3.3-5.1 [facility] Serum creatinine measurement (mass/volume)Ordered By: Randy Gibson on 07-04-2025 Creatinine [Mass/Vol] 1.17 mg/dL Normal 0.70-1.20 [facility] Comment on above: Performed By: #### L 500.4050, L100.0100 #### [facility] [address] [place], [address] Serum globulin measurementOr dered By: Randy Gibson on 07-04-2025 Globulin (S) [Mass/Vol] 2.7 g/dL Normal 2.2-4.[address] [facility] Comment on above: Performed By: #### L 500.4050, L100.0100 #### [facility] [address] [place], [address] Serum glucose measurement (m ass/volume)Ordered By: Randy Gibson on 07-04-2025 Glucose [Mass/Vol] 195 mg/dL High 70-99 [facility] Comment on above: Performed By: #### L 500.4050, L100.0100 #### [facility] [address] [place], [address] Serum or plasma alanine cardoza otransferase (ALT) measurementOrdered By: Randy Gibson on 07-04-2025 ALT [Catalytic activity/Vol] 19 U/L Normal <=46 [facility] Comment on above: Performed By: #### L 500.4050, L100.0100 #### [facility] [address] [place], [address] Serum or plasma albumin sheldon urement (mass/volume)Ordered By: Randy Gibson on 07-04-2025 Albumin [Mass/Vol] 3.8 g/dL Normal 3.4-4.8 [facility] Comment on above: Performed By: #### L 500.4050, L100.0100 #### [facility] [address] [place], [address] Serum or plasma albumin/glob ulin mass ratioOrdered By: Randy Gibson on 07-04-2025 Albumin/Globulin [Mass ratio] 1.4 {ratio} Normal 0.9-2.4 [facility] Comment on above: Performed By: #### L 500.4050, L100.0100 #### [facility] [address] [place], [address] Serum or plasma alkaline rose marie sphatase measurementOrdered By: Randy Gibson on 07-04-2025 ALP [Catalytic activity/Vol] 129 U/L 40-129 [facility] Serum or plasma calcium sheldon urement (mass/volume)Ordered By: Randy Gibson on 07-04-2025 Calcium [Mass/Vol] 9.1 mg/dL Normal 7.6-11.0 [facility] Comment on above: Performed By: #### L 500.4050, L100.0100 #### [facility] [address] [place], [address] Serum or plasma urea nitroge n measurement (mass/volume)Ordered By: Randy Gibson on 07-04-2025 Urea nitrogen [Mass/Vol] 25 mg/dL High 4-19 [facility] Comment on above: Performed By: #### L 500.4050, L100.0100 #### [facility] [address] [place], [address] Shoulder min 2 Viewson 07-04 Shoulder min 2 Views [facility] Imaging Services [address] [place] [address] Shoulder min 2 Views MR#: [id number] Acct: [id number] Name: KANDI GOMEZ Rep #: [id number] : 1945 M 80 From: Óscar cleary MD PCP: Dr. Billy Braga DO Status: REG ER Study: Shoulder min 2 Views Date of Exam: 07/04/25 Exam# [id number] Ordering Dr: Randy Gibson DO PROCEDURE: SHOULDER MIN 2 VIEWS 07/04/2025 REASON FOR EXAM: PAIN AFTER FALL TECHNIQUE: Procedure Code: RADSH Modality: DX Procedure: SHOULDER MIN 2 VIEWS Laterality: LEFT. COMPARISON: NONE. FINDINGS: Acute comminuted displaced fractures of the humeral surgical neck. Overlying soft tissue edema and swelling. Mild osteopenia of the visualized bones. Degenerative joint disease. No dislocation is seen. No lytic or blastic bone lesion is noted. RAD/Shoulder min 2 Views IMPRESSION: Acute comminuted displaced fractures of the humeral surgical neck. Overlying soft tissue edema and swelling. Reading Location: [place] [address] CC: Dr. Billy Braga DO; Dr. Randy Gibson DO Cloth Bin Packer: Signed Normal [facility] Sodium levelOrdered By: Matthew Gibson on 07-04-2025 Sodium [Moles/Vol] 140 mmol/L Normal 133-145 [facility] Comment on above: Performed By: #### L 500.4050, L100.0100 #### [facility] [address] [facility] [place], [place], [address] Spine Cervical without Contr ason 07-04-2025 Spine Cervical without Contras [facility] Imaging Services [address] [place], [place] [address] Spine Cervical without Contras MR#: [id number] Acct: [id number] Name: KANDI GOMEZ Rep #: [id number] : 1945 M 80 From: Óscar cleary MD PCP: Dr. Billy Braga DO Status: REG ER Study: Spine Cervical without Contras Date of Exam: 0 07/04/25 Exam# [id number] Ordering Dr: Randy Gibson DO PROCEDURE: SPINE CERVICAL WITHOUT CONTRAS 07/04/2025 REASON FOR EXAM: FALL TECHNIQUE: Procedure Code: CTSPC Modality: CT Procedure: SPINE CERVICAL WITHOUT CONTRAS Coronal and Sagittal reconstruction series were provided. One or more dose reduction techniques were used (e.g., Automated exposure control, adjustment of the mA and/or kV according to patient size, use of iterative reconstruction technique. RADIATION DOSE SUMMARY: CTDlvol: 61.79 mGy DLP: 1540 mGycm COMPARISON: 07-03-2025 FINDINGS: Straightened cervical lordosis denoting myospasm. 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 The examined vertebral bodies show no structural collapse or posterior neural elements fractures. Intact atlanto-axial interval. Degenerative changes of the atlanto-odontoid articulation with related capsular calcifications. Cervical spondylodegenerative changes evident by marginal osteophytic lipping and multilevel subchondral sclerosis of the examined vertebral end plates with multilevel disc spaces narrowing with vacuum phenomenon. Multilevel degenerative unco-vertebral arthropathy with osteophytes formation seen encroaching upon the corresponding neural exit foramina. Multilevel degenerative facet arthropathy, more on the left side. Multilevel diffuse disc bulges with posterior osteophytes and annular calcifications indenting the theca and encroaching upon the related neural exit foramina. No developmental spinal canal stenosis. No paraspinal masses. Vascular atheromatous calcifications CT/Spine Cervical without Contras IMPRESSION: No newly developed vertebral fractures, structural collapse or dislocation. Stable study findings as detailed. Reading Location: [place] [address] CC: Dr. Billy Braga, DO; Dr. Randy Gibson DO Cloth Bin Packer: Signed Normal [facility] Total proteinOrdered By: Geo Gibson on 07-04-2025 Protein [Mass/Vol] 6.5 g/dL 5.9-8.4 [facility] White blood cell (WBC) count Ordered By: Randy Gibson on 07-04-2025 WBC (Bld) [#/Vol] 10.1 10*3/uL Normal 4.4-11.0 [facility] Comment on above: Performed By: #### L 500.4050, L100.0100 #### [facility] [address] [facility] [place], [address] Brain/Head without Contrasto n 07-03-2025 Brain/Head without Contrast [facility] Imaging Services [address] [place], [place] [address] Brain/Head without Contrast MR#: [id number] Acct: [id number] Name: KANDI GOMEZ Rep #: [id number] : 1945 M 80 From: Rose Mary Rodriguez PCP: Dr. Billy Braga DO Status: REG ER Study: Brain/Head without Contrast Date of Exam: 03/22 Exam# [id number] Ordering Dr: Mj Ngo DO PROCEDURE: BRAIN/HEAD WITHOUT CONTRAST 07/03/2025 [...] chronic microvascular ischemic changes and mild parenchymal volume loss. No acute, depressed calvarial fractures. No large scalp hematomas. The paranasal sinuses are clear. CT/Brain/Head without Contrast IMPRESSION: No acute intracranial process. Reading Location: [facility] CC: Dr. Billy Braga DO; Dr. Mj Ngo DO Cloth Bin Packer: Signed Normal [facility] Emergency Department Summary on 07-03-2025 Emergency Department Summary [facility] Medical Records Department [address] [place] [address] Emergency Department Summary 07/03/25 MR#: [id number] Acct: [id number] Name: KANDI GOMEZ Rep #: [id number] : 1945 80 From: Mj Ngo DO [...] concrete. He states that he did hit his head but did not pass out. He states that he is on Eliquis as well. Patient states he is unsure when his last tetanus shot was. He is complaining of right hand pain and a cut. [facility] Medical History Tonsil and adenoid disease, chronic Hernia Coronary atherosclerosis due to severely calcified coronary lesion Home Medications ???Medication ???Instructions ???Recorded ???Last Taken ???Type metformin 500 mg tablet 500 mg PO BIDCM DIABETES 02/21/18 02/21/18 History 500 MG metoprolol tartrate 25 mg tablet 25 mg PO BID BLOOD PRESSURE 02/21/18 History 25 MG cholecalciferol (vitamin D3) 50 2,000 unit PO DAILY 03/26/18 Unkno wn History mcg (2,000 unit) capsule (Vitamin D3) apixaban 5 mg tablet (Eliquis) 5 mg PO BID 07/03/25 Unknown Histo ry aspirin 81 mg capsule 81 mg PO DAILY 07/03/25 Unknown Hi story atorvastatin 10 mg tablet (Lipitor) 10 mg PO QHS 07/03/25 Unknown H istory furosemide 40 mg tablet (Lasix) 20 mg PO DAILY 07/03/25 Unknown Hi story levothyroxine 75 mcg tablet 75 mcg PO DAILY 07/03/25 Unknown H istory (Synthroid) lisinopril 10 mg tablet 10 mg PO DAILY 07/03/25 Unknown Hi story tamsulosin 0.4 mg capsule 0.4 mg PO DAILY 07/03/25 Unknown H istory Allergy/AdvReac Type Severity Reaction Status Date / [...] following commands knew that he was at [facility] year is 2024 Skin: Warm, dry, [...] spine fracture, metacarpal fracture, fifth phalanx fracture (more content not included)... Normal [facility] Forearm 2 Viewson 07-03-2025 Forearm 2 Views [facility] Imaging Services [facility] [address] [place], [place] [address] Forearm 2 Views MR#: [id number] Acct: [id number] Name: KANDI GOMEZ Rep #: [id number] : 1945 M 80 From: Rose Mary Rodriguez PCP: Dr. Billy Braga DO Status: REG ER Study: Forearm 2 Views Date of Exam: 07/03/25 Exam# [id number] Ordering Dr: Mj Ngo DO PROCEDURE: FOREARM 2 VIEWS 07/03/2025 REASON FOR EXAM: FALL TECHNIQUE: Procedure Code: RADFA Modality: DX Procedure: FOREARM 2 VIEWS COMPARISON: None ORDER #: RAD/Forearm 2 Views IMPRESSION: No acute fracture or dislocations. Scattered mild degenerative changes. No acute soft tissue abnormalities. No radiographic foreign body. Reading Location: [facility] CC: Dr. Billy Braga DO; Dr. Mj Ngo DO Cloth Bin Packer: Signed Normal [facility] Hand Min 3 Viewson Hand Min 3 Views [facility] Imaging Services [address] [place] [address] Hand Min 3 Views MR#: [id number] Acct: [id number] Name: KANDI GOMEZ Rep #: [id number] : 1945 M 80 From: Rose Mary Rodriguez PCP: Dr. Billy Braga DO Status: REG ER Study: Hand Min 3 Views Date of Exam: 07/03/25 Exam# [id number] Ordering Dr: Mj Ngo DO PROCEDURE: HAND MIN 3 VIEWS 07/03/2025 REASON FOR EXAM: FALL, HAND LAC BASE OF 5TH TECHNIQUE: Procedure Code: GINNA Modality: DX Procedure: HAND MIN 3 VIEWS Laterality: COMPARISON: None ORDER #: RAD/Hand Min 3 Views IMPRESSION: No acute fracture or dislocations. Scattered mild degenerative changes. Mild soft tissue edema/contusion. No radiographic foreign body. Reading Location: [facility] CC: Dr. Billy Braga DO; Dr. Mj Ngo DO Cloth Bin Packer: Signed Normal [facility] Spine Cervical without Contr ason 07-03-2025 Spine Cervical without Contras [facility] Imaging Services [address] [place] [address] Spine Cervical without Contras MR#: [id number] Acct: [id number] Name: KANDI GOMEZ Rep #: [id number] : 1945 M 80 From: Rose Mary Rodriguez PCP: Dr. Billy Braga DO Status: REG ER Study: Spine Cervical without Contras Date of Exam: 0 07/03/25 Exam# [id number] Ordering Dr: Mj Ngo DO PROCEDURE: SPINE CERVICAL WITHOUT CONTRAS [...] stenosis most prominent at C6-C7. Reading Location: [id number] CC: Dr. Billy Braag DO; Dr. Mj Ngo DO Cloth Bin Packer: Signed Normal [facility] Wrist min 3 Viewson 07-03-20 Wrist min 3 Views [facility] Imaging Services [address] [place] [address] Wrist min 3 Views MR#: [id number] Acct: [id number] Name: KANDI GOMEZ Rep #: [id number] : 1945 M 80 From: Rose Mary Rodriguez PCP: Dr. Billy Braga DO Status: REG ER Study: Wrist min 3 Views Date of Exam: 07/03/25 Exam# [id number] Ordering Dr: Mj Ngo DO PROCEDURE: WRIST MIN 3 VIEWS 07/03/2025 REASON FOR EXAM: FALL TECHNIQUE: Procedure Code: RADWR Modality: DX Procedure: WRIST MIN 3 VIEWS COMPARISON: None RAD/Wrist min 3 Views IMPRESSION: No acute fracture or dislocations. Scattered mild degenerative changes. No acute soft tissue abnormalities. No radiographic foreign body. Reading Location: [facility] CC: Dr. Billy Braga DO; Dr. Mj Ngo DO Cloth Bin Packer: Signed Normal [facility] Absolute lymphocyte countOrd ered By: Dr. Alford on 12-26-2022 Lymphocytes Auto (Unsp spec) [#/Vol] 1.22 10*3/uL 0.83-4.51 [facility] Basophil percentageOrdered B y: Dr. Alford on 12-26-2022 Basophils/100 WBC (Bld) 0.6 % 0-[address] [facility] Bilirubin [Mass/Vol] 1.80 mg/dL 0.20-1.00 [facility] Comment on above: For patients on eltr ombopag therapy, use of Dimension [place] TBIL is not recommended. Chloride [Moles/Vol] 105 mmol/L 98-107 [facility] Eosinophils/100 WBC (Bld) 1.6 % 0-5 [facility] Glucose [Mass/Vol] 157 mg/dL 74-106 [facility] Comment on above: Fasting Glucose resu lt greater than or equal to 126 mg/dL suggests DIABETES MELLITUS per A.D.A. criteria. Neutrophils (Bld) [#/Vol] 7.4 10*3/uL 2.0-7.7 [facility] Neutrophils/100 WBC (Bld) 75.5 % 47-70 [facility] Potassium [Moles/Vol] 4.6 mmol/L 3.5-5.1 [facility] Protein [Mass/Vol] 7.2 g/dL 6.4-8.2 [facility] Sodium [Moles/Vol] 140 mmol/L 136-145 [facility] WBC (Bld) [#/Vol] 9.8 10*3/uL 4.4-11.0 [facility] Blood erythrocytes count (nu mber/volume)Ordered By: Dr. Alford on 12-26-2022 RBC (Bld) [#/Vol] 4.36 10*6/uL 4.6-6.2 [facility] Blood hemoglobin measurement (mass/volume)Ordered By: Dr. Alford on 12-26-2022 Hemoglobin (Bld) [Mass/Vol] 13.4 g/dL 13.0-16.5 [facility] Blood lymphocytes/100 leukoc ytesOrdered By: Dr. Alford on 12-26-2022 Lymphocytes/100 WBC (Bld) 12.5 % 19-41 [facility] Blood monocytes/100 leukocyt esOrdered By: Dr. Alford on 12-26-2022 Monocytes/100 WBC (Bld) 9.2 % 0-[address] [facility] Blood platelet mean volumeOr dered By: Dr. Alford on 12-26-2022 Platelet mean volume (Bld) [Entitic vol] 9.9 fL 6.2-12.0 [facility] COVID-19 virus antigen assay Ordered By: Dr. Alford on 12-26-2022 SARS-CoV-2 (COVID-19) Ag IA.rapid Ql (Resp) [facility] Determination of erythrocyte mean corpuscular volume (MCV)Ordered By: Dr. Alford on 12-26-2022 MCV (RBC) [Entitic vol] 100.0 fL 80-[address] [facility] Hematocrit Auto (Bld) [Volum e fraction]Ordered By: Dr. Alford on 12-26-2022 Hematocrit (Bld) [Volume fraction] 43.6 % 40-54 [facility] Laboratory - Chemistry and C hemistry - challengeOrdered By: Dr. Alford on 12-26-2022 ALP [Catalytic activity/Vol] 119 U/L 45-117 [facility] ALT [Catalytic activity/Vol] 27 U/L 16-61 [facility] CO2 [Moles/Vol] 26.0 mmol/L 21.0-32.0 [facility] Globulin (S) [Mass/Vol] 3.4 g/dL 2.2-4.2 [facility] Natriuretic peptide B (Bld) [Mass/Vol] 653.8 pg/mL 0-100 [facility] Urea nitrogen/Creatinine [Mass ratio] 16.8 mg/mg 10-20 [facility] - Hematology and Cell countsOrdered By: Dr. Alford on 12-26-2022 Erythrocyte distribution width (RBC) [Entitic vol] 52.6 fL 35.1-43.9 [facility] Erythrocyte distribution width (RBC) [Ratio] 14.5 % 11.6-14.6 [facility] Immature granulocytes/100 WBC (Bld) 0.600 % 0.0-0.9 [facility] Comment on above: IG% - Immature Granu locytes (promyelocytes, myelocytes and metamyelocytes) > 1% indicates that a LEFT SHIFT is Present. MCH (RBC) [Entitic mass] 30.7 pg 27.0-32.0 [facility] Nucleated RBC/100 WBC (Bld) [Ratio] 0 % 0-5 [facility] MCHC Auto (RBC) [Mass/Vol]Or dered By: Dr. Alford on 12-26-2022 MCHC (RBC) [Mass/Vol] 30.7 g/dL 32-36 [facility] No Panel InformationOrdered By: Dr. Alford on 12-26-2022 Estimated Creatinine Clearance Calc 36.95 ml/min [facility] Estimated GFR (MDRD) Amer 46 mL/min >60 [facility] Comment on above: GFR Calc Estimated GFR (MDRD) Non-Af Amer 38 mL/min >60 [facility] Comment on above: Non- GFR Calc Troponin I High Sensitivity 8 pg/mL 3.0-78.0 [facility] Comment on above: Please Note: New Carmen t Units and Gender Specific Reference Ranges. For more information see Policy Stat Procedure [place] High Sensitivity Troponin (TNIH) and attachments. Platelets bldOrdered By: Dr. Alford on 12-26-2022 Platelets (Bld) [#/Vol] 292 10*3/uL 150-450 [facility] Serum or plasma albumin sheldon urement (mass/volume)Ordered By: Dr. Alford on 12-26-2022 Albumin [Mass/Vol] 3.8 g/dL 3.2-5.0 [facility] Serum or plasma albumin/glob ulin mass ratioOrdered By: Dr. Alford on 12-26-2022 Albumin/Globulin [Mass ratio] 1.1 {ratio} 0.9-2.4 [facility] Serum or plasma calcium sheldon urement (mass/volume)Ordered By: Dr. Alford on 12-26-2022 Calcium [Mass/Vol] 9.7 mg/dL 8.5-10.1 [facility] Serum or plasma creatinine m easurement (mass/volume)Ordered By: Dr. Alford on 12-26-2022 Creatinine [Mass/Vol] 1.84 mg/dL 0.70-1.30 [facility] Comment on above: The validity of the calculated GFR & GFRAA in patients over 70 years has not been determined. Clinical correlation is essential. Serum or plasma urea nitroge n measurement (mass/volume)Ordered By: Dr. Alford on 12-26-2022 Urea nitrogen [Mass/Vol] 31 mg/dL 7-18 [facility] Thin prep Papanicolaou smear with manual screeningOrdered By: Dr. Alford on 12-26-2022 Thin prep Papanicolaou smear with manual screening 19 U/L 15-37 [facility] Thin prep Papanicolaou smear with manual screening 9 5-15 [facility] Vital Signs Date Time Vital Sign Value Performing Clinician Faci lity 07-06-2025 13:51-0400 Body temperature 97.3 [degF] Dr. Billy Barga DO Work Phone: [facility] 07-06-2025 13:51-0400 Diastolic blood pressure 50 mm[Hg] Dr. Billy Braga DO Work Phone: [facility] 07-06-2025 13:51-0400 Heart rate 67 /min Dr. Billy Braga DO Work Phone: [facility] 07-06-2025 13:51-0400 Respiratory rate 15 /min Dr. Billy Braga DO Work Phone: [facility] 07-06-2025 13:51-0400 SaO2% (BldA) [Mass fraction] 95 % Dr. Billy Braga DO Work Phone: [facility] 07-06-2025 13:51-0400 Systolic blood pressure 99 mm[Hg] Dr. Billy Braga DO Work Phone: [facility] 07-06-2025 06:00-0400 Body mass index (BMI) [Ratio] 38.6 kg/m2 Dr. Billy Braga DO Work Phone: [facility] 07-06-2025 06:00-0400 Body weight 118.[address] Billy Braga DO Work Phone: [facility] 07-06-2025 04:38-0400 Inhaled oxygen flow rate 2 L/min Dr. Billy Braga DO Work Phone: [facility] 07-04-2025 05:40-0400 Body height 175.[address] Billy Braga DO Work Phone: [facility] 07-04-2025 04:37-0400 Body temperature 97.6 [degF] Dr. Billy Braga DO Work Phone: [facility] 07-04-2025 04:37-0400 Diastolic blood pressure 54 mm[Hg] Dr. Billy Braga DO Work Phone: [facility] 07-04-2025 04:37-0400 Heart rate 58 /min Dr. Billy Braga DO Work Phone: [facility] 07-04-2025 04:37-0400 Respiratory rate 15 /min Dr. Billy Braga DO Work Phone: [facility] 07-04-2025 04:37-0400 SaO2% (BldA) [Mass fraction] 93 % Dr. Billy Braga DO Work Phone: [facility] 07-04-2025 04:37-0400 Systolic blood pressure 108 mm[Hg] Dr. Billy Braga DO Work Phone: [facility] 07-04-2025 01:17-0400 Body height 180.[address] Billy Braga DO Work Phone: [facility] 07-04-2025 01:17-0400 Body mass index (BMI) [Ratio] 39.2 kg/m2 Dr. Billy Braga DO Work Phone: [facility] 07-04-2025 01:17-0400 Body weight 127.[address] Billy Braga DO Work Phone: [facility] 07-03-2025 08:03-0400 Body temperature 97.9 [degF] Dr. Billy Braga DO Work Phone: [facility] 07-03-2025 08:03-0400 Diastolic blood pressure 69 mm[Hg] Dr. Billy Braga DO Work Phone: [facility] 07-03-2025 08:03-0400 Heart rate 67 /min Dr. Billy Braga DO Work Phone: [facility] 07-03-2025 08:03-0400 Respiratory rate 16 /min Dr. Billy Braga DO Work Phone: [facility] 07-03-2025 08:03-0400 SaO2% (BldA) [Mass fraction] 97 % Dr. Billy Braga DO Work Phone: [facility] 07-03-2025 08:03-0400 Systolic blood pressure 151 mm[Hg] Dr. Billy Braga DO Work Phone: [facility] 07-03-2025 06:45-0400 Body height 180.[address] Billy Braga DO Work Phone: [facility] 07-03-2025 06:45-0400 Body mass index (BMI) [Ratio] 37.7 kg/m2 Dr. Billy Braga DO Work Phone: [facility] 07-03-2025 06:45-0400 Body weight 122.[address] Billy Braga DO Work Phone: [facility] 12-26-2022 17:42-0500 Body temperature 98 [degF] [facility] 12-26-2022 17:42-0500 Diastolic blood pressure 88 mm[Hg] [facility] 12-26-2022 17:42-0500 Heart rate 67 /min [facility] 12-26-2022 17:42-0500 Respiratory rate 18 /min [facility] 12-26-2022 17:42-0500 SaO2% (BldA) [Mass fraction] 92 % [facility] 12-26-2022 17:42-0500 Systolic blood pressure 123 mm[Hg] [facility] 12-26-2022 15:22-0500 Body height 180.34 cm [facility] 12-26-2022 15:22-0500 Body mass index (BMI) [Ratio] 38.1 kg/m2 [facility] 12-26-2022 15:22-0500 Body weight 124.1 kg [facility] Encounters Encounter Date Encounter Type Care Provider Facility Start: 07-06-2025 Non-patient / Non-visit Dr. Jerrell martines DO -[facility] Work Phone: Start: 07-05-2025 Non-patient / Non-visit Dr. Tigre jordan MD -[facility] Work Phone: Start: 07-04-2025 Non-patient / Non-visit Dr. Umer hines MD -[facility] Start: 07-04-2025 End: 07-06-2025 Evaluation and management of inpatient Dr. Amarilis Tillman MD -[facility] Work Phone: Start: 07-04-2025 End: 07-06-[address] Billy Braga DO Work Phone: -[facility] Start: 07-04-2025 ambulatory [facility] Facility :[facility] Start: 07-04-2025 Non-patient / Non-visit Dr. Amarilis Tillman MD -[facility] Work Phone: Start: 07-03-2025 End: 07-03-2025 Emergency department patient visit Dr. Billy Braga DO Work Phone: -Emergency Department Work Phone: Start: 12-26-2022 End: 12-26-2022 Emergency department patient visit [facility]-Emergency Department Procedures Date Procedure Procedure Detail Performing Clinician Start: 07-06-[address] Billy Braga DO Work Phone: Start: 07-06-2025 Serum inorganic phos phate measurement Dr. Billy Braga DO Work Phone: Start: 07-04-[address] Billy Braga DO Work Phone: Start: 07-04-2025 Plain x-ray of humerus Dr. Billy Braga DO Work Phone: Start: 07-04-2025 Plain X-ray of shoulder Dr. Billy Braga DO Work Phone: Start: 07-03-2025 Plain x-ray of hand Dr. Billy Braga DO Work Phone: Start: 07-03-2025 Plain x-ray of wrist Dr Justice Braga DO Work Phone: Start: 07-03-2025 XR forearm, [address] Billy Braga DO Work Phone: Start: 07-03-2025 End: 07-04-2025 CT cervical spine without contrast Dr. Billy Braga DO Work Phone: Start: 07-03-2025 End: 07-04-2025 CT of head without contrast Dr. Billy Braga DO Work Phone: Start: 12-26-2022 Plain chest X-ray History of coronary artery bypass grafting Hx of CABG Viral antigen assay Plan of Treatment Date Care Activity Detail Author Start: 07-06-2025 Patient discharge [facility] Start: 07-05-2025 [facility] Start: 07-04-2025 Application of inter mittent pneumatic compression device [facility] Start: 07-04-2025 Assessment of risk o f venous thromboembolism [facility] Start: 07-04-2025 Care regimes management [facility] Start: 07-04-2025 Consultation [facility] Start: 07-04-2025 Fall prevention [facility] Start: 07-04-2025 Inhalation therapy procedure [facility] Start: 07-04-2025 Insertion of cathete r into peripheral vein [facility] Start: 07-04-2025 Introduction of urin nathan catheter [facility] Start: 07-04-2025 Measuring intake and output [facility] Start: 07-04-2025 Notification of physician [facility] Start: 07-04-2025 Oxygen therapy [facility] Start: 07-04-2025 Providing care accor ding to standard [facility] Start: 07-04-2025 Provision of activit y privileges [facility] Start: 07-04-2025 Referral to occupati onal therapist [facility] Start: 07-04-2025 Referral to service [facility] Start: 07-04-2025 End: 07-04-2025 [facility] Start: 07-04-2025 Following clinical p athway protocol [facility] Start: 07-04-[address] [facility] Start: 07-04-2025 Admission procedure [facility] Start: 07-04-2025 Hospital admission, emergency, from emergency room, medical nature [facility] Start: 07-04-2025 Application of ice c ollar, cap or bag [facility] Start: 07-03-2025 [facility] Magnesium measurement [facility] Patient Education What Is Heart Failure [facility] Work Phone: Patient referral [facility] Work Phone: Immunizations Immunization Date Immunization Notes Care Provider Fa cility 07-03-2025 tetanus toxoid, redu pj diphtheria toxoid, and acellular pertussis vaccine, adsorbed Dr. Billy Braga DO Work Phone: [facility] 02-12-2025 [facility] DO Work Phone: [facility] 08-06-2024 influenza, high dose seasonal, preservative-free Dr. Billy Braga DO Work Phone: [facility] 07-31-2023 influenza, injectabl e, quadrivalent, preservative free Dr. Billy Braga DO Work Phone: [facility] 01-04-2023 Covid Pfizer Bivalen t Booster Dr. Billy Braga DO Work Phone: [facility] 08-29-2021 Covid (Pfizer) Dr. Billy lindsay DO Work Phone: [facility] 01-18-2021 Covid (Pfizer) Dr. Billy lindsay DO Work Phone: [facility] 12-29-2020 Covid (Pfizer) Dr. Billy lindsay DO Work Phone: [facility] 09-24-2020 influenza, injectabl e, quadrivalent, preservative free Dr. Billy Braga DO Work Phone: [facility] 04-21-2019 tetanus toxoid, redu pj diphtheria toxoid, and acellular pertussis vaccine, adsorbed [facility] 01-21-[address] Billy Braga DO Work Phone: [facility] 11-11-[address] Billy Braga DO Work Phone: [facility] 08-30-2016 zoster vaccine, live Dr. Andra Braga DO Work Phone: [facility] 07-15-2015 pneumococcal conjuga te vaccine, [address] Billy Braga DO Work Phone: [facility] 03-10-2013 diphtheria, tetanus toxoids and acellular pertussis vaccine Dr. Billy Braga DO Work Phone: [facility] 03-10-2013 pneumococcal vaccine , unspecified formulation Dr. Billy Braga DO Work Phone: [facility] Payers Date Payer Category Payer Self-pay [id number] 2025 Self-pay [id number] Medicare [id number] Unknown [place] AUTH REQUIR ED SEE NOTE [id number] Unknown [id number] Unknown [id number] Unknown [id number] Unknown [id number] Unknown [id number] Unknown [id number] Social History Date Type Detail Facility Start: [facility]-26-2022 [facility] Start: 1945 Sex Assigned At Male [facility] Start: 07-03-2025 End: 07-04-2025 Tobacco smoking status [facility] Never smoked tobacco (finding) [facility] Goals Date Patient Goal Desired Activity /State Functional Status Date Assessment Result Facility 07-06-2025 Functional status Ambulates [facility] Work Phone: Mental Status Date Assessment Result Facility 07-06-2025 Cognitive function Awake;Alert;A ppropriate;Foll ows Commands [facility] Work Phone: 07-06-2025 Cognitive function Appropriate;Cooperativ e [facility] Work Phone: 07-05-2025 Cognitive function Arousable To Voice/Nam e [facility] Work Phone: Clinical Notes 12-26-2022 to 07-06-2025 Note Date & Type Note Facility 07-06-2025 Consult note [facility] 07-06-2025 Discharge summary Note Date/Time July 06, 2025 11:34am [facility] Medical Records Department [address] [place] [address] Discharge Summary 07/06/25 1132 MR#: [id number] Acct: [id number] Name: KANDI GOMEZ Rep #:[id number] : 1945 80 From: Jerrell Esquivel DO PCP: Dr. Billy Braga DO Status:ADM LILY Location: [place] [address] Providers Date of Admission: 07/04/25 Primary Care Physician: Dr. Billy Braga DO Consultations 07/04/25 05:31 Consult: Orthopedics Routine Consulting Provider: Umer Rivera Reason for Consult: Fall, L humeral neck fx. EMERGENT Consult: No MD Notified: Yes Date Notified: 07/04/25 Time Notified: 04:15 Method of Notification: ED Physician Initiated Reason For Visit: FALL, HUMERAL NECK FRACTURE, ADULT FTT Diagnosis Discharge Diagnosis (1) Left humeral fracture: Status: Acute Code(s): S42.302A - Unspecified fracture of shaft of humerus, left arm, initial encounterfor closed fracture Qualifiers: Encounter type: initial encounter Humerus Location: surgical neck Fracture type: closed Fracture morphology: 2-part Fracture alignment: displaced Qualified Code(s): S42.222A - 2-part displaced fracture of surgical neck of left humerus, initial encounter for closed fracture Plan Acute comminuted displaced fractures of the humeral surgical neck, * with Overlying soft tissue edema and swelling. * Ortho consulted and recommends oupt follow up. Sling for comfort now. Falls: * Patient was seen by therapy the day prior recommendation was made for outpatient physical therapy following discharge however patient home condition is not suitable for patient being discharged home (has no bathroom on the first floor and had fallen twice on his staircase) Chronic conditions: * Anemia? Secondary to chronic disorder monitoring H&H and transfuse if patient becomes symptomatic or hemoglobin falls below 7 * Coronary artery disease? Status post CABG. Patient is on guideline directed medical therapy * Paroxysmal atrial fibrillation? Rate controlled on systemic anticoagulation with apixaban * Hypertension Blood pressure controlled, home medications continued with dose adjustment as needed * Diabetes mellitus type II-patient's oral hypoglycemics held. Placed on Accu- Cheks a.c. and at bedtime and covered with sliding scale insulin * Hypothyroidism? Patient is on levothyroxine home dose continued * Class II obesity with BMI of 38.6? Complicating care weight loss advised * Valvular heart disease? With history of aortic valve replacement DVT prophylaxis ? Patient is on apixaban which was held given patient injury Disposition: Patient to go to rehab waiting on further conversation with social work and the patient's spouse. Medications at Discharge Home Medications metformin 500 mg tablet 500 mg PO DAILY DIABETES 02/21/18 metoprolol tartrate 25 mg tablet 25 mg PO BID BLOOD PRESSURE 02/21/18 cholecalciferol (vitamin D3) 50 mcg (2,000 unit) capsule (Vitamin D3) 2,000 unitPO DAILY 03/26/18 apixaban 5 mg tablet (Eliquis) 5 mg PO BID 07/03/25 aspirin 81 mg capsule 81 mg PO DAILY 07/03/25 atorvastatin 10 mg tablet (Lipitor) 10 mg PO QHS 07/03/25 furosemide 40 mg tablet (Lasix) 20 mg PO DAILY 07/03/25 levothyroxine 75 mcg tablet (Synthroid) 75 mcg PO DAILY 07/03/25 lisinopril 10 mg tablet 5 mg PO DAILY 07/03/25 tamsulosin 0.4 mg capsule 0.4 mg PO DAILY 07/03/25 amlodipine 2.5 mg tablet 2.5 mg PO DAILY 07/04/25 oxycodone 5 mg tablet 5 mg PO Q4H PRN PRN Pain Score 4-10 5 days #20 tabs 07/04/25 sennosides 8.6 mg-docusate sodium 50 mg tablet (Stimulant Laxative Plus) 2 tab PO BID PRN PRN Constipation #30 tabs 07/04/25 Hospital Course Operations None Procedures None Weight / BMI Weight Weight: 118.4 kg Body Mass Index (BMI) 38.6 ABG / Lab / Microbiology Data 07/06/25 06:06 07/06/25 06:06 Laboratory: Laboratory Results - last 24 hr 07/05/25 11:18: POC Glucose 174 H 07/05/25 16:18: POC Glucose 155 H 07/05/25 22:27: POC Glucose 147 H 07/06/25 06:06: WBC 11.2 H, RBC 3.68 L, Hgb 11.7 L, Hct 36.0 L, MCV 97.8 H, MCH 31.8, MCHC 32.5, RDW Std Deviation 50.0 H, RDW Coeff of Mukul 13.9, Plt Count 303,MPV 9.4, Immature Gran % (Auto) 0.500, Neut % (Auto) 78.8 H, Lymph % (Auto) 7.3 L, Crosby % (Auto) 10.5 H, Eos % (Auto) 2.5, Baso % (Auto) 0.4, Absolute Neuts (auto) 8.8 H, Absolute Lymphs (auto) 0.82 L, Nucleated RBC % 0, Sodium 142, Potassium 4.5, Chloride 105, Carbon Dioxide 24.6, Anion Gap 12, BUN 28 H, Creatinine 1.16, Estim Creat Clear Calc 66.65, Est GFR (MDRD) Non-Af 64, BUN/Creatinine Ratio 24.3 H, Glucose 162 H, Calcium 9.7, Phosphorus 3.1, Magnesium 2.1 07/06/25 06:40: POC Glucose 155 H 07/06/25 11:09: POC Glucose 192 H D/C Instructions Weight Bearing Status: No weight bearing (Left upper extremity. Sling left upper extremity.) DC O2, CPAP, BIPAP Needs Home O2 Discharge instructions: No Meaningful Use Info Meaningful Use Meaningful Use Diagnoses (Choose all that apply): None applicable Discharge Plan Admission Admit Date/Time: 07/04/25 04:14 Primary Reason for Your Visit: Left humeral fracture Attending Provider: Jerrell Esquivel Primary Care Provider: Billy Braga Consulting Providers: Umer Rivera; Amarilis Tillman; Tigre Figueroa Discharge Orders/Prescriptions Prescriptions: New sennosides-docusate sodium [Stimulant Laxative Plus] 8.6-50 mg Tablet 2 tab PO BID PRN PRN (Reason: Constipation) Qty: 30 0RF oxycodone 5 mg Tablet 5 mg PO Q4H PRN PRN (Reason: Pain Score 4-10) 5 Days Qty: 20 0RF Continued metformin 500 MG tablet 500 mg PO DAILY metoprolol tartrate 25 MG tablet 25 mg PO BID cholecalciferol (vitamin D3) [Vitamin D3] 2,000 UNIT capsule 2,000 unit PO DAILY aspirin 81 mg capsule 81 mg PO DAILY levothyroxine [Synthroid] 75 mcg tablet 75 mcg PO DAILY atorvastatin [Lipitor] 10 mg tablet 10 mg PO QHS lisinopril 10 mg tablet 5 mg PO DAILY tamsulosin 0.4 mg capsule 0.4 mg PO DAILY furosemide [Lasix] 40 mg tablet 20 mg PO DAILY Eliquis 5 mg tablet 5 mg PO BID amlodipine 2.5 mg tablet 2.5 mg PO DAILY Referrals / Follow Up: Billy Braga DO [Primary Care Provider] - Umer Rivera MD [Med Staff - Active Staff] - Within 1 Week Disposition Disposition (needs filled in before D/C Order can be placed): Inpatient Rehab Unit/Facility Charges/Coding Visit Charges Inpatient E&M: 79510 Disch Hosp 07/06/25 1134 <Electronically signed by Jerrell Esquivel DO> Cosigner Signature (if applicable): CC: Dr. Jerrell Esquivel DO; Dr. Billy Braga DO~ Signed [facility] Work Phone: [phone] 442-672309-08-2025 Progress note Author Jerrell Esquivel [facility] Note Date/Time July 06, 2025 11:32am [facility] Medical Records Department [address] [place] [address] Progress Note - Hospitalist 07/06/25 0910 MR#: [id number] Acct: [id number] Name: KANDI GOMEZ Rep #:[id number] : 1945 80 From: Jerrell Esquivel DO PCP: Dr. Billy Braga, DO Status:ADM LILY Location: [facility] [id number] Reason for Visit Chief Complaint: Fall, LUE pain/shoulder pain. Subjective Subjective Doing well. Ready to go. Objective Data Objective Data Vital Signs: Vital Signs Temp Pulse Resp BP Pulse Ox O2 Del Method O2 Flow Rate 36.3 C L 113 H 16 113/59 L 94 Room Air 2 07/06/25 08:38 07/06/25 08:38 07/06/25 08:38 07/06/25 08:38 07/06/25 08:38 07/06/25 08:38 07/06/25 04:38 Oxygen Flow Rate (L/min) 2 Oxygen Delivery Method Room Air Weight: 118.4 kg Body Mass Index (BMI) 38.6 Intake & Output: Intake and Output for Last 24 Hours 07/04/25 07/05/25 07/06/25 23:59 23:59 23:59 Intake Total 501.67 / 501.67 Balance 501.67 / 501.67 Lab / Micro Data 07/06/25 06:06 07/06/25 06:06 Labs: Laboratory Results - last 24 hr 07/05/25 11:18: POC Glucose 174 H 07/05/25 16:18: POC Glucose 155 H 07/05/25 22:27: POC Glucose 147 H 07/06/25 06:06: WBC 11.2 H, RBC 3.68 L, Hgb 11.7 L, Hct 36.0 L, MCV 97.8 H, MCH 31.8, MCHC 32.5, RDW Std Deviation 50.0 H, RDW Coeff of Mukul 13.9, Plt Count 303,MPV 9.4, Immature Gran % (Auto) 0.500, Neut % (Auto) 78.8 H, Lymph % (Auto) 7.3 L, Crosby % (Auto) 10.5 H, Eos % (Auto) 2.5, Baso % (Auto) 0.4, Absolute Neuts (auto) 8.8 H, Absolute Lymphs (auto) 0.82 L, Nucleated RBC % 0, Sodium 142, Potassium 4.5, Chloride 105, Carbon Dioxide 24.6, Anion Gap 12, BUN 28 H, Creatinine 1.16, Estim Creat Clear Calc 66.65, Est GFR (MDRD) Non-Af 64, BUN/Creatinine Ratio 24.3 H, Glucose 162 H, Calcium 9.7, Phosphorus 3.1, Magnesium 2.1 07/06/25 06:40: POC Glucose 155 H Physical Exam Const alert and no apparent distress HEENT HEENT Narrative: Rhinophyma Extremity Extremity Narrative: Left arm in sling. Noted edema, nonpitting of the left shoulder. Assessment & Plan Assessment/Plan (1) Left humeral fracture: QUALIFIERS: Encounter type: initial encounter Humerus Location: surgical neck Fracture type: closed Fracture morphology: 2-part Fracture alignment: displaced Qualified Code(s): S42.222A - 2-part displaced fracture ofsurgical neck of left humerus, initial encounter for closed fracture PLAN: Plan Acute comminuted displaced fractures of the humeral surgical neck, * with Overlying soft tissue edema and swelling. * Ortho consulted and recommends oupt follow up. Sling for comfort now. Falls: * Patient was seen by therapy the day prior recommendation was made for outpatient physical therapy following discharge however patient home condition is not suitable for patient being discharged home (has no bathroom on the first floor and had fallen twice on his staircase) Chronic conditions: * Anemia? Secondary to chronic disorder monitoring H&H and transfuse if patient becomes symptomatic or hemoglobin falls below 7 * Coronary artery disease? Status post CABG. Patient is on guideline directed medical therapy * Paroxysmal atrial fibrillation? Rate controlled on systemic anticoagulation with apixaban * Hypertension Blood pressure controlled, home medications continued with dose adjustment as needed * Diabetes mellitus type II-patient's oral hypoglycemics held. Placed on Accu- Cheks a.c. and at bedtime and covered with sliding scale insulin * Hypothyroidism? Patient is on levothyroxine home dose continued * Class II obesity with BMI of 38.6? Complicating care weight loss advised * Valvular heart disease? With history of aortic valve replacement DVT prophylaxis ? Patient is on apixaban which was held given patient injury Disposition: Patient to go to rehab waiting on further conversation with social work and the patient's spouse. 07/06/25 1132 <Electronically signed by Jerrell Esquivel DO> Cosigner Signature (if applicable): CC: ~ Signed [facility] Work Phone: 1(449) 852-546809-08-2025 Discharge summary [facility] Medical Records Department [address] [place] [address] Discharge Summary 07/06/25 1132 MR#: [id number] Acct: [id number] Name: KANDI GOMEZ Rep #:[id number] : 1945 80 From: Jerrell Esquivel DO PCP: Dr. Billy Braga DO Status:ADM LILY Location: [place] [address] Providers Date of Admission: 07/04/25 Primary Care Physician: Dr. Billy Braga DO Consultations 07/04/25 05:31 Consult: Orthopedics Routine Consulting Provider: Umer Rivera Reason for Consult: Fall, L humeral neck fx. EMERGENT Consult: No MD Notified: Yes Date Notified: 07/04/25 Time Notified: 04:15 Method of Notification: ED Physician Initiated Reason For Visit: FALL, HUMERAL NECK FRACTURE, ADULT FTT Diagnosis Discharge Diagnosis (1) Left humeral fracture: Status: Acute Code(s): S42.302A - Unspecified fracture of shaft of humerus, left arm, initial encounterfor closed fracture Qualifiers: Encounter type: initial encounter Humerus Location: surgical neck Fracture type: closed Fracture morphology: 2-part Fracture alignment: displaced Qualified Code(s): S42.222A - 2-part displaced fracture of surgical neck of left humerus, initial encounter for closed fracture Plan Acute comminuted displaced fractures of the humeral surgical neck, * with Overlying soft tissue edema and swelling. * Ortho consulted and recommends oupt follow up. Sling for comfort now. Falls: * Patient was seen by therapy the day prior recommendation was made for outpatient physical therapyfollowing discharge however patient home condition is not suitable for patient being discharged home (has no bathroom on the first floor and had fallen twice on his staircase) Chronic conditions: * Anemia? Secondary to chronic disorder monitoring H&H and transfuse if patient becomes symptomatic or hemoglobin falls below 7 * Coronary artery disease? Status post CABG. Patient is on guideline directed medical therapy * Paroxysmal atrial fibrillation? Rate controlled on systemic anticoagulation with apixaban * Hypertension Blood pressure controlled, home medications continued with dose adjustment as needed * Diabetes mellitus type II-patient's oral hypoglycemics held. Placed on Accu- Cheks a.c. and at bedtime and covered with sliding scale insulin * Hypothyroidism? Patient is on levothyroxine home dose continued * Class II obesity with BMI of 38.6? Complicating care weight loss advised * Valvular heart disease? With history of aortic valve replacement DVT prophylaxis ? Patient is on apixaban which was held given patient injury Disposition: Patient to go to rehab waiting on further conversation with social work and the patient's spouse. Medications at Discharge Home Medications metformin 500 mg tablet 500 mg PO DAILY DIABETES 02/21/18 metoprolol tartrate 25 mg tablet 25 mg PO BID BLOOD PRESSURE 02/21/18 cholecalciferol (vitamin D3) 50 mcg (2,000 unit) capsule (Vitamin D3) 2,000 unitPO DAILY 03/26/18 apixaban 5 mg tablet (Eliquis) 5 mg PO BID 07/03/25 aspirin 81 mg capsule 81 mg PO DAILY 07/03/25 atorvastatin 10 mg tablet (Lipitor) 10 mg PO QHS 07/03/25 furosemide 40 mg tablet (Lasix) 20 mg PO DAILY 07/03/25 levothyroxine 75 mcg tablet (Synthroid) 75 mcg PO DAILY 07/03/25 lisinopril 10 mg tablet 5 mg PO DAILY 07/03/25 tamsulosin 0.4 mg capsule 0.4 mg PO DAILY 07/03/25 amlodipine 2.5 mg tablet 2.5 mg PO DAILY 07/04/25 oxycodone 5 mg tablet 5 mg PO Q4H PRN PRN Pain Score 4-10 5 days #20 tabs 07/04/25 sennosides 8.6 mg-docusate sodium 50 mg tablet (Stimulant Laxative Plus) 2 tab PO BID PRN PRN Constipation #30 tabs 07/04/25 Hospital Course Operations None Procedures None Weight / BMI Weight Weight: 118.4 kg Body Mass Index (BMI) 38.6 ABG / Lab / Microbiology Data 07/06/25 06:06 07/06/25 06:06 Laboratory: Laboratory Results - last 24 hr 07/05/25 11:18: POC Glucose 174 H 07/05/25 16:18: POC Glucose 155 H 07/05/25 22:27: POC Glucose 147 H 07/06/25 06:06: WBC 11.2 H, RBC 3.68 L, Hgb 11.7 L, Hct 36.0 L, MCV 97.8 H, MCH 31.8, MCHC 32.5, RDW Std Deviation 50.0 H, RDW Coeff of Mukul 13.9, Plt Count 303,MPV 9.4, Immature Gran % (Auto) 0.500, Neut % (Auto) 78.8 H, Lymph % (Auto) 7.3 L, Crosby % (Auto) 10.5 H, Eos % (Auto) 2.5, Baso % (Auto) 0.4, Absolute Neuts (auto) 8.8 H, Absolute Lymphs (auto) 0.82 L, Nucleated RBC % 0, Sodium 142, Potassium 4.5, Chloride 105, Carbon Dioxide 24.6, Anion Gap 12, BUN 28 H, Creatinine 1.16, Estim Creat Clear Calc 66.65, Est GFR (MDRD) Non-Af 64, BUN/Creatinine Ratio 24.3 H, Glucose 162 H, Calcium 9.7, Phosphorus 3.1, Magnesium 2.1 07/06/25 06:40: POC Glucose 155 H 07/06/25 11:09: POC Glucose 192 H D/C Instructions Weight Bearing Status: No weight bearing (Left upper extremity. Sling left upper extremity.) DC O2, CPAP, BIPAP Needs Home O2 Discharge instructions: No Meaningful Use Info Meaningful Use Meaningful Use Diagnoses (Choose all that apply): None applicable Discharge Plan Admission Admit Date/Time: 07/04/25 04:14 Primary Reason for Your Visit: Left humeral fracture Attending Provider: Jerrell Esquivel Primary Care Provider: Billy Braga Consulting Providers: Umer Rivera; Amarilis Tillman; Tigre Figueroa Discharge Orders/Prescriptions Prescriptions: New sennosides-docusate sodium [Stimulant Laxative Plus] 8.6-50 mg Tablet 2 tab PO BID PRN PRN (Reason: Constipation) Qty: 30 0RF oxycodone 5 mg Tablet 5 mg PO Q4H PRN PRN (Reason: Pain Score 4-10) 5 Days Qty: 20 0RF Continued metformin 500 MG tablet 500 mg PO DAILY metoprolol tartrate 25 MG tablet 25 mg PO BID cholecalciferol (vitamin D3) [Vitamin D3] 2,000 UNIT capsule 2,000 unit PO DAILY aspirin 81 mg capsule 81 mg PO DAILY levothyroxine [Synthroid] 75 mcg tablet 75 mcg PO DAILY atorvastatin [Lipitor] 10 mg tablet 10 mg PO QHS lisinopril 10 mg tablet 5 mg PO DAILY tamsulosin 0.4 mg capsule 0.4 mg PO DAILY furosemide [Lasix] 40 mg tablet 20 mg PO DAILY Eliquis 5 mg tablet 5 mg PO BID amlodipine 2.5 mg tablet 2.5 mg PO DAILY Referrals / Follow Up: Billy Braga DO [Primary Care Provider] - Umer Rivera MD [Med Staff - Active Staff] - Within 1 Week Disposition Disposition (needs filled in before D/C Order can be placed): Inpatient Rehab Unit/Facility Charges/Coding Visit Charges Inpatient E&M: 59954 Disch Hosp 07/06/25 1134 Cosigner Signature (if applicable): CC: Dr. Jerrell Esquivel DO; Dr. Billy Braga DO~ Signed [facility]09-08-2025 [facility] Medical Records Department [address] [place] [address] Discharge Summary 07/06/25 1132 MR#: [id number] Acct: [id number] Name: KANDI GOMEZ Rep #: [id number] : 1945 80 From: Jerrell Esquivel DO PCP: Dr. Billy Braga DO Status:ADM LILY Location: [place] [address] Providers Date of Admission: 07/04/25 Primary Care Physician: Dr. Billy Braga DO Consultations 07/04/25 05:31 Consult: Orthopedics Routine Consulting Provider: Umer Rivera Reason for Consult: Fall, L humeral neck fx. EMERGENT Consult: No MD Notified: Yes Date Notified: 07/04/25 Time Notified: 04:15 Method of Notification: ED Physician Initiated Reason For Visit: FALL, HUMERAL NECK FRACTURE, ADULT FTT Diagnosis Discharge Diagnosis (1) Left humeral fracture: Status: Acute Code(s): S42.302A - Unspecified fracture of shaft of humerus, left arm, initial encounter for closed fracture Qualifiers: Encounter type: initial encounter Humerus Location: surgical neck Fracture type: closed F racture morphology: 2-part Fracture alignment: displaced Qualified Code(s): S42.222A - 2-part displaced fracture of surgical neck of left humerus, initial encounter for closed fracture Plan Acute comminuted displaced fractures of the humeral surgical neck, * with Overlying soft tissue edema and swelling. * Ortho consulted and recommends oupt follow up. Sling for comfort now. Falls: * Patient was seen by therapy the day prior recommendation was made for outpatient physical therapy following discharge however patient home condition is not suitable for patient being discharged home (has no bathroom on the first floor and had fallen twice on his staircase) Chronic conditions: * Anemia??? Secondary to chronic disorder monitoring H H and transfuse if patient becomes symptomatic or hemoglobin falls below 7 * Coronary artery disease??? Status post CABG. Patient is on guideline directed medical therapy * Paroxysmal atrial fibrillation??? Rate controlled on systemic anticoagulation with apixaban * Hypertension Blood pressure controlled, home medications continued with dose adjustment as needed * Diabetes mellitus type II-patient's oral hypoglycemics held. Placed on Accu- Cheks a.c. and at bedtime and covered with sliding scale insulin * Hypothyroidism??? Patient is on levothyroxine home dose continued * Class II obesity with BMI of 38.6??? Complicating care weight loss advised * Valvular heart disease??? With history of aortic valve replacement DVT prophylaxis ??? Patient is on apixaban which was held given patient injury Disposition: Patient to go to rehab waiting on further conversation with social work and the patient's spouse. Medications at Discharge Home Medications metformin 500 mg tablet 500 mg PO DAILY DIABETES 02/21/18 metoprolol tartrate 25 mg tablet 25 mg PO BID BLOOD PRESSURE 02/21/18 cholecalciferol (vitamin D3) 50 mcg (2,000 unit) capsule (Vitamin D3) 2,000 unit PO DAILY 03/26/18 apixaban 5 mg tablet (Eliquis) 5 mg PO BID 07/03/25 aspirin 81 mg capsule 81 mg PO DAILY 07/03/25 atorvastatin 10 mg tablet (Lipitor) 10 mg PO QHS 07/03/25 furosemide 40 mg tablet (Lasix) 20 mg PO DAILY 07/03/25 levothyroxine 75 mcg tablet (Synthroid) 75 mcg PO DAILY 07/03/25 lisinopril 10 mg tablet 5 mg PO DAILY 07/03/25 tamsulosin 0.4 mg capsule 0.4 mg PO DAILY 07/03/25 amlodipine 2.5 mg tablet 2.5 mg PO DAILY 07/04/25 oxycodone 5 mg tablet 5 mg PO Q4H PRN PRN Pain Score 4-10 5 days #20 tabs 09/06/25 sennosides 8.6 mg-docusate sodium 50 mg tablet (Stimulant Laxative Plus) 2 tab PO BID PRN PRN Constipation #30 tabs 07/04/25 Hospital Course Operations None Procedures None Weight / BMI Weight Weight: 118.4 kg Body Mass Index (BMI) 38.6 ABG / Lab / Microbiology Data 07/06/25 06:06 07/06/25 06:06 Laboratory: Laboratory Results - last 24 hr 07/05/25 11:18: POC Glucose 174 H 07/05/25 16:18: POC Glucose 155 H 07/05/25 22:27: POC Glucose 147 H 07/06/25 06:06: WBC 11.2 H, RBC 3.68 L, Hgb 11.7 L, Hct 36.0 L, MCV 97.8 H, MCH 31.8, MCHC 32.5, RDW Std Deviation 50.0 H, RDW Coeff of Mukul 13.9, Plt Count 303, MPV 9.4, Immature Gran % (Auto) 0.500, N eut % (Auto) 78.8 H, Lymph % (Auto) 7.3 L, Crosby % (Auto) 10.5 H, Eos % (Auto) 2.5, Baso % (Auto) 0.4, Absolute Neuts (auto) 8.8 H, Absolute Lymphs (auto) 0.82 L, Nucleated RBC % 0, Sodium 142, Potassium 4.5, Chloride 105, Carbon Dioxide 24.6, Anion Gap 12, BUN 28 H, Creatinine 1.16, Estim Creat Clear Calc 66.65, Est GFR (MDRD) Non-Af 64, BUN/Creatinine Ratio 24.3 H, Glucose 162 H, Calcium 9.7, Phosphorus 3.1, Magnesium 2.1 07/06/25 06:40: POC Glucose 155 H 07/06/25 11:09: POC Glucose 192 H D/C Instructions Weight Bearing Status: No weight bearing (Left upper extremity. Sling left upper extremity.) DC O2, CPAP, BIPAP Needs (more content not included)...[facility]09-08-2025 Progress note [facility] Medical Records Department [address] [place] [address] Progress Note - Hospitalist 09/06/22 910 MR#: [id number] Acct: [id number] Name: KANDI GOMEZ Rep #:[id number] : 1945 80 From: Jerrell Esquivel DO PCP: Dr. Billy Braga, DO Status:ADM LILY Location: [facility] [id number] Reason for Visit Chief Complaint: Fall, LUE pain/shoulder pain. Subjective Subjective Doing well. Ready to go. Objective Data Objective Data Vital Signs: Vital Signs Temp Pulse Resp BP Pulse Ox O2 Del Method O2 Flow Rate 36.3 C L 113 H 16 113/59 L 94 Room Air 2 07/06/25 08:38 07/06/25 08:38 07/06/25 08:38 07/06/25 08:38 07/06/25 08:38 07/06/25 08:38 07/06/25 04:38 Oxygen Flow Rate (L/min) 2 Oxygen Delivery Method Room Air Weight: 118.4 kg Body Mass Index (BMI) 38.6 Intake & Output: Intake and Output for Last 24 Hours 07/04/25 07/05/25 07/06/25 23:59 23:59 23:59 Intake Total 501.67 / 501.67 Balance 501.67 / 501.67 Lab / Micro Data 07/06/25 06:06 07/06/25 06:06 Labs: Laboratory Results - last 24 hr 07/05/25 11:18: POC Glucose 174 H 07/05/25 16:18: POC Glucose 155 H 07/05/25 22:27: POC Glucose 147 H 07/06/25 06:06: WBC 11.2 H, RBC 3.68 L, Hgb 11.7 L, Hct 36.0 L, MCV 97.8 H, MCH 31.8, MCHC 32.5, RDW Std Deviation 50.0 H, RDW Coeff of Mukul 13.9, Plt Count 303,MPV 9.4, Immature Gran % (Auto) 0.500, Neut % (Auto) 78.8 H, Lymph % (Auto) 7.3 L, Crosby % (Auto) 10.5 H, Eos % (Auto) 2.5, Baso % (Auto) 0.4, Absolute Neuts (auto) 8.8 H, Absolute Lymphs (auto) 0.82 L, Nucleated RBC % 0, Sodium 142, Potassium 4.5, Chloride 105, Carbon Dioxide 24.6, Anion Gap 12, BUN 28 H, Creatinine 1.16, Estim Creat Clear Calc 66.65, Est GFR (MDRD) Non-Af 64, BUN/Creatinine Ratio 24.3 H, Glucose 162 H, Calcium 9.7, Phosphorus 3.1, Magnesium 2.1 07/06/25 06:40: POC Glucose 155 H Physical Exam Const alert and no apparent distress HEENT HEENT Narrative: Rhinophyma Extremity Extremity Narrative: Left arm in sling. Noted edema, nonpitting of the left shoulder. Assessment & Plan Assessment/Plan (1) Left humeral fracture: QUALIFIERS: Encounter type: initial encounter Humerus Location: surgical neck Fracture type: closedFracture morphology: 2-part Fracture alignment: displaced Qualified Code(s): S42.222A - 2-part displaced fracture ofsurgical neck of left humerus, initial encounter for closed fracture PLAN: Plan Acute comminuted displaced fractures of the humeral surgical neck, * with Overlying soft tissue edema and swelling. * Ortho consulted and recommends oupt follow up. Sling for comfort now. Falls: * Patient was seen by therapy the day prior recommendation was made for outpatient physical therapyfollowing discharge however patient home condition is not suitable for patient being discharged home (has no bathroom on the first floor and had fallen twice on his staircase) Chronic conditions: * Anemia? Secondary to chronic disorder monitoring H&H and transfuse if patient becomes symptomatic or hemoglobin falls below 7 * Coronary artery disease? Status post CABG. Patient is on guideline directed medical therapy * Paroxysmal atrial fibrillation? Rate controlled on systemic anticoagulation with apixaban * Hypertension Blood pressure controlled, home medications continued with dose adjustment as needed * Diabetes mellitus type II-patient's oral hypoglycemics held. Placed on Accu- Cheks a.c. and at bedtime and covered with sliding scale insulin * Hypothyroidism? Patient is on levothyroxine home dose continued * Class II obesity with BMI of 38.6? Complicating care weight loss advised * Valvular heart disease? With history of aortic valve replacement DVT prophylaxis ? Patient is on apixaban which was held given patient injury Disposition: Patient to go to rehab waiting on further conversation with social work and the patient's spouse. 07/06/25 1132 Cosigner Signature (if applicable): CC: ~ Signed [id number] Progress note Author Tigre Figueroa [facility] Note Date/Time July 05, 2025 7:48am [facility] Medical Records Department [address] [place] [address] Progress Note - Hospitalist 07/05/25728 MR#: [id number] Acct: [id number] Name: KANDI GOMEZ Rep #:[id number] : 1945 80 From: Tigre Figueroa MD PCP: Dr. Billy Braga, DO Status:ADM LILY Location: [facility] [id number] Reason for Visit Chief Complaint: Fall, LUE pain/shoulder pain. Subjective Subjective Patient was seen by therapy the day prior recommendation was made for outpatientphysical therapy following discharge however patient home condition is not suitable for patient being discharged home (has no bathroom on the first floor and had fallen twice on his staircase) Objective Data Objective Data Vital Signs: Vital Signs Temp Pulse Resp BP Pulse Ox O2 Del Method O2 Flow Rate 97.9 F 64 16 124/59 H 95 Nasal Cannula 2 07/05/25 02:18 07/05/25 02:18 07/05/25 02:18 07/05/25 02:18 07/05/25 02:28 07/05/25 07:19 07/05/25 07:19 Oxygen Flow Rate (L/min) 2 Oxygen Delivery Method Nasal Cannula Weight: 119 kg Body Mass Index (BMI) 38.8 Intake & Output: Intake and Output for Last 24 Hours 07/03/25 07/04/25 07/05/25 23:59 23:59 23:59 Intake Total 501.67 / 501.67 Balance 501.67 / 501.67 Lab / Micro Data 07/05/25 06:32 07/04/25 02:00 Labs: Laboratory Results - last 24 hr 07/04/25 11:50: POC Glucose 165 H 07/04/25 16:20: POC Glucose 163 H 07/04/25 21:25: POC Glucose 157 H 07/05/25 06:45: POC Glucose 142 H Physical Exam Narrative GENERAL: cooperative HEENT: Atraumatic; normocephalic EYES; Anicteric, Normal Conjunctiva NECK; supple, normal thyroid, RESPIRATORY: Diminished to auscultation CARDIOVASCULAR: Regular S1 S2, GI: soft, normoactive bowel sounds, : No Renal angle tenderness; EXTREMITIES: No edema, no clubbing, MUSCULOSKELETAL: Left shoulder immobilized NEURO: Awake; no lateralizing signs. SKIN: No Rash PSYCH; Flat affect Assessment & Plan Assessment/Plan (1) Left humeral fracture: QUALIFIERS: Encounter type: initial encounter Fracture alignment:displaced Fracture morphology: 2-part Fracture type: closed Humerus Location:surgical neck Qualified Code(s): S42.222A - 2-part displaced fracture of surgical neck of left humerus, initial encounter for closed fracture PLAN: Plan Patient is a 80-year-old male who presented to the hospital after falling while going up a flight of stairs landing on his left shoulder with subsequent pain imaging studies obtained on admission demonstrated left comminuted displaced fractures of the humeral surgical neck with overlying soft tissue edema. Admitted to the regular nursing floor for further management 1. Nonsyncopal fall with left arm pain Imaging studies obtained on admission demonstrated Acute comminuted displaced fractures of the humeral surgical neck, with Overlying soft tissue edema and swelling. Patient admitted to regular nursing floor for pain management consultplaced Ortho on admission ? 07/05/2025; patient was seen by Ortho recommended for patient to follow-up as outpatient for treatment options to be discussed. Patient was seen by therapy the day prior recommendation was made for outpatientphysical therapy following discharge however patient home condition is not suitable for patient being discharged home (has no bathroom on the first floor and had fallen twice on his staircase) 2. Anemia ? Secondary to chronic disorder monitoring H&H and transfuse if patient becomes symptomatic or hemoglobin falls below 7 3. Coronary artery disease ? Status post CABG. Patient is on guideline directed medical therapy 4. Paroxysmal atrial fibrillation ? Rate controlled on systemic anticoagulation with apixaban 5. Hypertension ? Blood pressure controlled, home medications continued with dose adjustment as needed 6. Diabetes mellitus type II -patient's oral hypoglycemics held. Placed on Accu-Cheks a.c. and at bedtime and covered with sliding scale insulin 7. Hypothyroidism ? Patient is on levothyroxine home dose continued 8. Class II obesity with BMI of 38.6 ? Complicating care weight loss advised 9. Valvular heart disease ? With history of aortic valve replacement 10. DVT prophylaxis ? Patient is on apixaban which was held given patient injury Time spent in the patient's overall evaluation,decision-making process, review of diagnostic data, adjustment of management, discussion with other providers, nursing nursing and ancillary staff involved in patient's care documentation, 35Minutes Charges/Coding Visit Charges Inpatient E&M: 22369 Subs Hosp L2 07/05/25 0748 <Electronically signed by Tigre Figueroa MD> Cosigner Signature (if applicable): CC: ~ Signed [facility] Work Phone: 1(197) 481-573309-07-2025 Progress note [facility] Medical Records Department [address] [place] [address] Progress Note - Hospitalist 07/05/25 0729 MR#: [id number] Acct: [id number] Name: KANDI GOMEZ Rep #:[id number] : 1945 80 From: Tigre Figueroa MD PCP: Dr. Billy Braga, DO Status:ADM LILY Location: [place] [address] Reason for Visit Chief Complaint: Fall, LUE pain/shoulder pain. Subjective Subjective Patient was seen by therapy the day prior recommendation was made for outpatientphysical therapy following discharge however patient home condition is not suitable for patient being discharged home (has no bathroom on the first floor and had fallen twice on his staircase) Objective Data Objective Data Vital Signs: Vital Signs Temp Pulse Resp BP Pulse Ox O2 Del Method O2 Flow Rate 97.9 F 64 16 124/59 H 95 Nasal Cannula 2 07/05/25 02:18 07/05/25 02:18 07/05/25 02:18 07/05/25 02:18 07/05/25 02:28 07/05/25 07:19 07/05/25 07:19 Oxygen Flow Rate (L/min) 2 Oxygen Delivery Method Nasal Cannula Weight: 119 kg Body Mass Index (BMI) 38.8 Intake & Output: Intake and Output for Last 24 Hours 07/03/25 07/04/25 07/05/25 23:59 23:59 23:59 Intake Total 501.67 / 501.67 Balance 501.67 / 501.67 Lab / Micro Data 07/05/25 06:32 07/04/25 02:00 Labs: Laboratory Results - last 24 hr 07/04/25 11:50: POC Glucose 165 H 07/04/25 16:20: POC Glucose 163 H 07/04/25 21:25: POC Glucose 157 H 07/05/25 06:45: POC Glucose 142 H Physical Exam Narrative GENERAL: cooperative HEENT: Atraumatic; normocephalic EYES; Anicteric, Normal Conjunctiva NECK; supple, normal thyroid, RESPIRATORY: Diminished to auscultation CARDIOVASCULAR: Regular S1 S2, GI: soft, normoactive bowel sounds, : No Renal angle tenderness; EXTREMITIES: No edema, no clubbing, MUSCULOSKELETAL: Left shoulder immobilized NEURO: Awake; no lateralizing signs. SKIN: No Rash PSYCH; Flat affect Assessment & Plan Assessment/Plan (1) Left humeral fracture: QUALIFIERS: Encounter type: initial encounter Fracture alignment:displaced Fracture morphology: 2-part Fracture type: closed Humerus Location:surgical neck Qualified Code(s): S42.222A - 2-part displaced fracture of surgical neck of left humerus, initial encounter for closed fracture PLAN: Plan Patient is a 80-year-old male who presented to the hospital after falling while going up a flight of stairs landing on his left shoulder with subsequent pain imaging studies obtained on admission demonstrated left comminuted displaced fractures of the humeral surgical neck with overlying soft tissue edema. Admitted to the regular nursing floor for further management 1. Nonsyncopal fall with left arm pain Imaging studies obtained on admission demonstrated Acute comminuted displaced fractures of the humeral surgical neck, with Overlying soft tissue edema and swelling. Patient admitted to regular nursing floor for pain management consultplaced Ortho on admission ? 07/05/2025; patient was seen by Ortho recommended for patient to follow-up as outpatient for treatment options to be discussed. Patient was seen by therapy the day prior recommendation was made for outpatientphysical therapy following discharge however patient home condition is not suitable for patient being discharged home (has no bathroom on the first floor and had fallen twice on his staircase) 2. Anemia ? Secondary to chronic disorder monitoring H&H and transfuse if patient becomes symptomatic or hemoglobin falls below 7 3. Coronary artery disease ? Status post CABG. Patient is on guideline directed medical therapy 4. Paroxysmal atrial fibrillation ? Rate controlled on systemic anticoagulation with apixaban 5. Hypertension ? Blood pressure controlled, home medications continued with dose adjustment as needed 6. Diabetes mellitus type II -patient's oral hypoglycemics held. Placed on Accu-Cheks a.c. and at bedtime and covered with sliding scale insulin 7. Hypothyroidism ? Patient is on levothyroxine home dose continued 8. Class II obesity with BMI of 38.6 ? Complicating care weight loss advised 9. Valvular heart disease ? With history of aortic valve replacement 10. DVT prophylaxis ? Patient is on apixaban which was held given patient injury Time spent in the patient's overall evaluation,decision-making process, review of diagnostic data, adjustment of management, discussion with other providers, nursing nursing and ancillary staff involved in patient's care documentation, 35Minutes Charges/Coding Visit Charges Inpatient E&M: 96422 Subs Hosp L2 07/05/25 0748 Cosigner Signature (if applicable): CC: ~ Signed [facility]09-06-2025 Consult note Author Umer Rivera [facility] Note Date/Time July 04, 2025 9:32am [facility] Medical Records Department [address] [place] [address] Consultation - Orthopedics 07/04/25 0930 MR#: [id number] Acct: [id number] Name: KANDI GOMEZ Rep #:[id number] : 1945 80 From: Umer Rivera MD PCP: Dr. Billy Braga, DO Status:ADM LILY Location: [place] [address] HPI Consult Data Date of Consult: 07/04/25 HPI Narrative HPI Narrative: KANDI GOMEZ, is a 80 M who presents with L proximal humerus fracture after multiple falls. [facility] Medical History (Updated 07/04/25 @ 08:[address] Tigre Figueroa MD) PAF (paroxysmal atrial fibrillation) Obesity Chronic anemia CAD (coronary artery disease) Hypothyroidism Diabetes mellitus type II, controlled HLD (hyperlipidemia) HTN (hypertension) Valvular heart disease Home Medications ?Medication ?Instructions ?Recorded ?Last Taken ?Type metformin 500 mg tablet 500 mg PO DAILY DIABETES 02/21/18 History 500 MG metoprolol tartrate 25 mg tablet 25 mg PO BID BLOOD ND ESSURE 02/21/18 02/21/18 History 25 MG cholecalciferol [...] nknown History (Synthroid) lisinopril 10 mg tablet 5 mg PO DAILY 07/03/25 Unkno wn History tamsulosin 0.4 mg capsule 0.4 mg PO DAILY 07/03/25 Unk nown History amlodipine 2.5 mg tablet 2.5 mg PO DAILY 07/04/25 Unk nown History Allergy/AdvReac Type Severity Reaction Status Date / Time Penicillins Allergy Other Verified 07/03/25 06:45 Family History Mother Cancer Father Heart failure Surgical History History of tonsillectomy and adenoidectomy S/P AVR (aortic valve replacement) S/P CABG x 1 Social History household members: spouse Smoking Status: Never smoker alcohol intake: never substance use type: does not use Vital Signs Vital Signs Vital Signs: 07/04/25 01:17 07/04/25 01:20 07/04/25 02:55 Temperature 97.7 F L Temperature Source Oral Pulse Rate 73 68 Respiratory Rate 20 H 20 H Respiratory Effort Normal Non-Labored Respiratory Depth Normal Respiratory Pattern Normal Blood Pressure 142/72 H 114/65 Blood Pressure Mean 95 81 Blood Pressure Source Blood Pressure Position Blood Pressure Location Pulse Ox 92 90 Oxygen Delivery Method Room Air Room Air Room Air Oxygen Flow Rate (L/min) 07/04/25 04:00 07/04/25 04:37 07/04/25 05:35 Temperature 97.6 F L 97.7 F L Temperature Source Oral Pulse Rate 60 58 L 67 Respiratory Rate 14 15 20 H Respiratory Effort Respiratory Depth Respiratory Pattern Blood Pressure 125/70 H 108/54 L 125/67 H Blood Pressure Mean 88 72 86 Blood Pressure Source Monitor Blood Pressure Position Semi-Fowlers Blood Pressure Location Right Arm Pulse Ox 94 93 97 Oxygen Delivery Method Room Air Nasal Cannula Oxygen Flow Rate (L/min) 2 07/04/25 05:41 07/04/25 07:58 07/04/25 09:00 Temperature Temperature Source Pulse Rate Respiratory Rate Respiratory Effort Normal Non-Labored Respiratory Depth Normal Respiratory Pattern Normal Blood Pressure Blood Pressure Mean Blood Pressure Source Blood Pressure Position Blood Pressure Location Pulse Ox Oxygen Delivery Method Nasal Cannula Nasal Cannula Nasal Cannula Oxygen Flow Rate (L/min) 2 2 2 Weight Weight: 261 lb 6 oz Body Mass Index (BMI) 38.5 Lab / Micro Data 07/04/25 02:00 07/04/25 02:00 Labs: Laboratory Results - last 24 hr 07/04/25 02:00: WBC 10.1, RBC 3.78 L, Hgb 11.9 L, Hct 37.2 L, MCV 98.4 H, MCH 31.5, MCHC 32.0, RDW Std Deviation 49.6 H, RDW Coeff of Mukul 13.6, Plt Count 269,MPV 9.3, Immature Gran % (Auto) 0.900, Neut % (Auto) 79.6 H, Lymph % (Auto) 6.9 L, Crosby % (Auto) 9.9, Eos % (Auto) 2.2, Baso % (Auto) 0.5, Absolute Neuts (auto)8.1 H, Absolute Lymphs (auto) 0.70 L, Nucleated RBC % 0, Sodium 140, Potassium 4.3, Chloride 106, Carbon Dioxide 23.6, Anion Gap 11, BUN 25 H, Creatinine 1.17,Estim Creat Clear Calc 70.79, Est GFR (MDRD) Non-Af 64, BUN/Creatinine Ratio 21.7 H, Glucose 195 H, Calcium 9.1, Magnesium 1.8, Total Bilirubin 1.47 H, AST 24, ALT 19, Alkaline Phosphatase 129, Total Protein 6.5, Albumin 3.8, Globulin 2.7, Albumin/Globulin Ratio 1.4 07/04/25 06:39: POC Glucose 171 H Imaging Radiology Impression Brain CT 07/04/25 01:53 IMPRESSION: No intracerebral or extra axial hemorrhage. No acute cerebrovascular insult. If clinical symptoms persist, further evaluation with MRI may be considered as clinically warranted. Bilateral cerebral microvascular ischemic changes with mild brain involutional changes. stable Reading Location: [facility] Cervical Spine CT 07/04/25 01:53 IMPRESSION: No newly developed vertebral fractures, structural collapse or dislocation. Stable study findings as detailed. Reading Location: [facility] Humerus X-Ray 07/04/25 02:30 IMPRESSION: Acute comminuted displaced fractures of the humeral surgical neck. Overlying soft tissue edema and swelling. Reading [facility] Should[facility] 07/04/25 02:30 IMPRESSION: Acute comminuted displaced fractures of the humeral surgical neck. Overlying soft tissue edema and swelling. Reading Location: [place] [address] Assessment & Plan Assessment/Plan (1) Left humeral fracture: QUALIFIERS: Encounter type: initial encounter Humerus Location: surgical neck Fracture type: closed Fracture morphology: 2-part Fracture alignment: displaced Qualified Code(s): S42.222A - 2-part displaced fracture ofsurgical neck of left humerus, initial encounter for closed fracture PLAN: 80 yr M with L proximal humerus fracture, comminuted, angulated. Recommendoutpatient FU for discussion on options once stabilized (sling / non op VS reverse total shoulder arthroplasty). Sling for comfort for now. 07/04/25 0932 <Electronically signed by Umer Rivera MD> Cosigner Signature (if applicable): CC: Dr. Billy Braga, ~ Signed [facility] Work Phone: 1(521) 716-919209-06-2025 Progress note Author Tigre Figueroa [facility] Note Date/Time July 04, 2025 8:50am [facility] Medical Records Department [address] [place] [address] Progress Note - Hospitalist 07/04/25717 MR#: [id number] Acct: [id number] Name: KANDI GOMEZ Rep #:[id number] : 1945 80 From: Tigre Figueroa MD PCP: Dr. Billy Braga, Status:ADM LILY Location: [place] [id number] Reason for Visit Chief Complaint: Fall, LUE pain/shoulder pain. Subjective Subjective Patient is a 80-year-old male who presented to the hospital after falling while going up a flight of stairs landing on his left shoulder with subsequent pain imaging studies obtained on admission demonstrated left comminuted displaced fractures of the humeral surgical neck with overlying soft tissue edema. Admitted to the regular nursing floor for further management Objective Data Objective Data Vital Signs: Vital Signs Temp Pulse Resp BP Pulse Ox O2 Del Method O2 Flow Rate 97.7 F L 67 20 H 125/67 H 97 Nasal Cannula 2 07/04/25 05:35 07/04/25 05:35 07/04/25 05:35 07/04/25 05:35 07/04/25 05:35 07/04/25 05:41 07/04/25 05:41 Oxygen Flow Rate (L/min) 2 Oxygen Delivery Method Nasal Cannula Weight: 118.558 kg Body Mass Index (BMI) 38.5 Lab / Micro Data 07/04/25 02:00 07/04/25 02:00 Labs: Laboratory Results - last 24 hr 07/04/25 02:00: WBC 10.1, RBC 3.78 L, Hgb 11.9 L, Hct 37.2 L, MCV 98.4 H, MCH 31.5, MCHC 32.0, RDW Std Deviation 49.6 H, RDW Coeff of Mukul 13.6, Plt Count 269,MPV 9.3, Immature Gran % (Auto) 0.900, Neut % (Auto) 79.6 H, Lymph % (Auto) 6.9 L, Crosby % (Auto) 9.9, Eos % (Auto) 2.2, Baso % (Auto) 0.5, Absolute Neuts (auto)8.1 H, Absolute Lymphs (auto) 0.70 L, Nucleated RBC % 0, Sodium 140, Potassium 4.3, Chloride 106, Carbon Dioxide 23.6, Anion Gap 11, BUN 25 H, Creatinine 1.17,Estim Creat Clear Calc 70.79, Est GFR (MDRD) Non-Af 64, BUN/Creatinine Ratio 21.7 H, Glucose 195 H, Calcium 9.1, Magnesium 1.8, Total Bilirubin 1.47 H, AST 24, ALT 19, Alkaline Phosphatase 129, Total Protein 6.5, Albumin 3.8, Globulin 2.7, Albumin/Globulin Ratio 1.4 07/04/25 06:39: POC Glucose 171 H Radiography Diagnostic Testing: Radiology Impression Brain CT 07/04/25 01:53 IMPRESSION: No intracerebral or extra axial hemorrhage. No acute cerebrovascular insult. If clinical symptoms persist, further evaluation with MRI may be considered as clinically warranted. Bilateral cerebral microvascular ischemic changes with mild brain involutional changes. stable Reading Location: [place] [address] 07/04/25 01:53 IMPRESSION: No newly developed vertebral fractures, structural collapse or dislocation. Stable study findings as detailed. Reading Location: [place] [address] Humerus X-Ray 07/04/25 02:30 IMPRESSION: Acute comminuted displaced fractures of the humeral surgical neck. Overlying soft tissue edema and swelling. Reading Location: [place] [address] Shoulder X-Ray 07/04/25 02:30 IMPRESSION: Acute comminuted displaced fractures of the humeral surgical neck. Overlying soft tissue edema and swelling. Reading Location: [place] [address] Physical Exam Narrative GENERAL: cooperative HEENT: Atraumatic; normocephalic EYES; Anicteric, Normal Conjunctiva NECK; supple, normal thyroid, RESPIRATORY: Diminished to auscultation CARDIOVASCULAR: Regular S1 S2, GI: soft, normoactive bowel sounds, : No Renal angle tenderness; EXTREMITIES: No edema, no clubbing, MUSCULOSKELETAL: Left shoulder immobilized NEURO: Awake; no lateralizing signs. SKIN: No Rash PSYCH; Flat affect Assessment & Plan Assessment/Plan (1) Left humeral fracture: QUALIFIERS: Encounter type: initial encounter Humerus Location: surgical neck Fracture type: closed Fracture morphology: 2-part Fracture alignment: displaced Qualified Code(s): S42.222A - 2-part displaced fracture ofsurgical neck of left humerus, initial encounter for closed fracture PLAN: Plan Patient is a 80-year-old male who presented to the hospital after falling while going up a flight of stairs landing on his left shoulder with subsequent pain imaging studies obtained on admission demonstrated left comminuted displaced fractures of the humeral surgical neck with overlying soft tissue edema. Admitted to the regular nursing floor for further management 1. Nonsyncopal fall with left arm pain Imaging studies obtained on admission demonstrated Acute comminuted displaced fractures of the humeral surgical neck, with Overlying soft tissue edema and swelling. Patient admitted to regular nursing floor for pain management consultplaced Ortho on admission 2. Anemia ? Secondary to chronic disorder monitoring H&H and transfuse if patient becomes symptomatic or hemoglobin falls below 7 3. Coronary artery disease ? Status post CABG. Patient is on guideline directed medical therapy 4. Paroxysmal atrial fibrillation ? Rate controlled on systemic anticoagulation with apixaban 5. Hypertension ? Blood pressure controlled, home medications continued with dose adjustment as needed 6. Diabetes mellitus type II -patient's oral hypoglycemics held. Placed on Accu-Cheks a.c. and at bedtime and covered with sliding scale insulin 7. Hypothyroidism ? Patient is on levothyroxine home dose continued 8. Class II obesity with BMI of 38.6 ? Complicating care weight loss advised 9. Valvular heart disease ? With history of aortic valve replacement 10. DVT prophylaxis ? Patient is on apixaban which was held given patient injury Time spent in the patient's overall evaluation,decision-making process, review of diagnostic data, adjustment of management, discussion with other providers, nursing nursing and ancillary staff involved in patient's care documentation, 40Minutes Charges/Coding Visit Charges Inpatient E&M: 59121 Subs Hosp L2 07/04/25 0850 <Electronically signed by Tigre Figueroa MD> Cosigner Signature (if applicable): CC: ~ Signed [facility] Work Phone: 1(411) 574-120409-06-2025 Consult note [facility] Medical Records Department [address] [place] [address] Consultation - Orthopedics 07/04/25 0930 MR#: [id number] Acct: [id number] Name: KANDI GOMEZ Rep #:[id number] : 1945 80 From: Umer Rivera MD PCP: Dr. Billy Braga, DO Status:ADM LILY Location: [place] [address] HPI Consult Data Date of Consult: 07/04/25 HPI Narrative HPI Narrative: KANDI GOMEZ, is a 80 M who presents with L proximal humerus fracture after multiple falls. [facility] Medical History (Updated 07/04/25 @ 08:[address] Tigre Figueroa MD) PAF (paroxysmal atrial fibrillation) Obesity Chronic anemia CAD (coronary artery disease) Hypothyroidism Diabetes mellitus type II, controlled HLD (hyperlipidemia) HTN (hypertension) Valvular heart disease Home Medications ?Medication ?Instructions ?Recorded ?Last Taken ?Type metformin 500 mg tablet 500 mg PO DAILY DIABETES 02/21/18 History 500 MG metoprolol tartrate 25 mg tablet 25 mg PO BID BLOOD ND ESSURE 02/21/18 02/21/18 History 25 MG cholecalciferol [...] nknown History (Synthroid) lisinopril 10 mg tablet 5 mg PO DAILY 07/03/25 Unkno wn History tamsulosin 0.4 mg capsule 0.4 mg PO DAILY 07/03/25 Unk nown History amlodipine 2.5 mg tablet 2.5 mg PO DAILY 07/04/25 Unk nown History Allergy/AdvReac Type Severity Reaction Status Date / Time Penicillins Allergy Other Verified 07/03/25 06:45 Family History Mother Cancer Father Heart failure Surgical History History of tonsillectomy and adenoidectomy S/P AVR (aortic valve replacement) S/P CABG x 1 Social History household members: spouse Smoking Status: Never smoker alcohol intake: never substance use type: does not use Vital Signs Vital Signs Vital Signs: 07/04/25 01:17 07/04/25 01:20 07/04/25 02:55 Temperature 97.7 F L Temperature Source Oral Pulse Rate 73 68 Respiratory Rate 20 H 20 H Respiratory Effort Normal Non-Labored Respiratory Depth Normal Respiratory Pattern Normal Blood Pressure 142/72 H 114/65 Blood Pressure Mean 95 81 Blood Pressure Source Blood Pressure Position Blood Pressure Location Pulse Ox 92 90 Oxygen Delivery Method Room Air Room Air Room Air Oxygen Flow Rate (L/min) 07/04/25 04:00 07/04/25 04:37 07/04/25 05:35 Temperature 97.6 F L 97.7 F L Temperature Source Oral Pulse Rate 60 58 L 67 Respiratory Rate 14 15 20 H Respiratory Effort Respiratory Depth Respiratory Pattern Blood Pressure 125/70 H 108/54 L 125/67 H Blood Pressure Mean 88 72 86 Blood Pressure Source Monitor Blood Pressure Position Semi-Fowlers Blood Pressure Location Right Arm Pulse Ox 94 93 97 Oxygen Delivery Method Room Air Nasal Cannula Oxygen Flow Rate (L/min) 2 07/04/25 05:41 07/04/25 07:58 07/04/25 09:00 Temperature Temperature Source Pulse Rate Respiratory Rate Respiratory Effort Normal Non-Labored Respiratory Depth Normal Respiratory Pattern Normal Blood Pressure Blood Pressure Mean Blood Pressure Source Blood Pressure Position Blood Pressure Location Pulse Ox Oxygen Delivery Method Nasal Cannula Nasal Cannula Nasal Cannula Oxygen Flow Rate (L/min) 2 2 2 Weight Weight: 261 lb 6 oz Body Mass Index (BMI) 38.5 Lab / Micro Data 07/04/25 02:00 07/04/25 02:00 Labs: Laboratory Results - last 24 hr 07/04/25 02:00: WBC 10.1, RBC 3.78 L, Hgb 11.9 L, Hct 37.2 L, MCV 98.4 H, MCH 31.5, MCHC 32.0, RDW Std Deviation 49.6 H, RDW Coeff of Mukul 13.6, Plt Count 269,MPV 9.3, Immature Gran % (Auto) 0.900, Neut % (Auto) 79.6 H, Lymph % (Auto) 6.9 L, Crosby % (Auto) 9.9, Eos % (Auto) 2.2, Baso % (Auto) 0.5, Absolute Neuts (auto)8.1 H, Absolute Lymphs (auto) 0.70 L, Nucleated RBC % 0, Sodium 140, Potassium 4.3, Chloride 106, Carbon Dioxide 23.6, Anion Gap 11, BUN 25 H, Creatinine 1.17,Estim Creat Clear Calc70.79, Est GFR (MDRD) Non-Af 64, BUN/Creatinine Ratio 21.7 H, Glucose 195 H, Calcium 9.1, Magnesium1.8, Total Bilirubin 1.47 H, AST 24, ALT 19, Alkaline Phosphatase 129, Total Protein 6.5, Albumin 3.8, Globulin 2.7, Albumin/Globulin Ratio 1.4 07/04/25 06:39: POC Glucose 171 H Imaging Radiology Impression Brain CT 07/04/25 01:53 IMPRESSION: No intracerebral or extra axial hemorrhage. No acute cerebrovascular insult. If clinical symptoms persist, further evaluation with MRI may be considered as clinically warranted. Bilateral cerebral microvascular ischemic changes with mild brain involutional changes. stable Reading Location: [place] [address] 07/04/25 01:53 IMPRESSION: No newly developed vertebral fractures, structural collapse or dislocation. Stable study findings as detailed. Reading Location: [place] [address] Humerus X-Ray 07/04/25 02:30 IMPRESSION: Acute comminuted displaced fractures of the humeral surgical neck. Overlying soft tissue edema and swelling. Reading Location: [place] [address] Shoulder X-Ray 07/04/25 02:30 IMPRESSION: Acute comminuted displaced fractures of the humeral surgical neck. Overlying soft tissue edema and swelling. Reading Location: [place] [address] Assessment & Plan Assessment/Plan (1) Left humeral fracture: QUALIFIERS: Encounter type: initial encounter Humerus Location: surgical neck Fracture type: closedFracture morphology: 2-part Fracture alignment: displaced Qualified Code(s): S42.222A - 2-part displaced fracture ofsurgical neck of left humerus, initial encounter for closed fracture PLAN: 80 yr M with L proximal humerus fracture, comminuted, angulated. Recommendoutpatient FU for discussion on options once stabilized (sling / non op VS reverse total shoulder arthroplasty). Sling for comfort for now. 07/04/25 0932 Cosigner Signature (if applicable): CC: Dr. Billy Braga, DO~ Signed [facility]09-06-2025 Progress note [facility] Medical Records Department [address] [place] [address] Progress Note - Hospitalist 07/04/25 0718 MR#: [id number] Acct: [id number] Name: KANDI GOMEZ Rep #:[id number] : 1945 80 From: Tigre Figueroa MD PCP: Dr. Billy Braga, Status:ADM LILY Location: [place] [id number] Reason for Visit Chief Complaint: Fall, LUE pain/shoulder pain. Subjective Subjective Patient is a 80-year-old male who presented to the hospital after falling while going up a flight of stairs landing on his left shoulder with subsequent pain imaging studies obtained on admission demonstrated left comminuted displaced fractures of the humeral surgical neck with overlying soft tissue edema. Admitted to the regular nursing floor for further management Objective Data Objective Data Vital Signs: Vital Signs Temp Pulse Resp BP Pulse Ox O2 Del Method O2 Flow Rate 97.7 F L 67 20 H 125/67 H 97 Nasal Cannula 2 07/04/25 05:35 07/04/25 05:35 07/04/25 05:35 07/04/25 05:35 07/04/25 05:35 07/04/25 05:41 07/04/25 05:41 Oxygen Flow Rate (L/min) 2 Oxygen Delivery Method Nasal Cannula Weight: 118.558 kg Body Mass Index (BMI) 38.5 Lab / Micro Data 07/04/25 02:00 07/04/25 02:00 Labs: Laboratory Results - last 24 hr 07/04/25 02:00: WBC 10.1, RBC 3.78 L, Hgb 11.9 L, Hct 37.2 L, MCV 98.4 H, MCH 31.5, MCHC 32.0, RDW Std Deviation 49.6 H, RDW Coeff of Mukul 13.6, Plt Count 269,MPV 9.3, Immature Gran % (Auto) 0.900, Neut % (Auto) 79.6 H, Lymph % (Auto) 6.9 L, Crosby % (Auto) 9.9, Eos % (Auto) 2.2, Baso % (Auto) 0.5, Absolute Neuts (auto)8.1 H, Absolute Lymphs (auto) 0.70 L, Nucleated RBC % 0, Sodium 140, Potassium 4.3, Chloride 106, Carbon Dioxide 23.6, Anion Gap 11, BUN 25 H, Creatinine 1.17,Estim Creat Clear Calc70.79, Est GFR (MDRD) Non-Af 64, BUN/Creatinine Ratio 21.7 H, Glucose 195 H, Calcium 9.1, Magnesium1.8, Total Bilirubin 1.47 H, AST 24, ALT 19, Alkaline Phosphatase 129, Total Protein 6.5, Albumin 3.8, Globulin 2.7, Albumin/Globulin Ratio 1.4 07/04/25 06:39: POC Glucose 171 H Radiography Diagnostic Testing: Radiology Impression Brain CT 07/04/25 01:53 IMPRESSION: No intracerebral or extra axial hemorrhage. No acute cerebrovascular insult. If clinical symptoms persist, further evaluation with MRI may be considered as clinically warranted. Bilateral cerebral microvascular ischemic changes with mild brain involutional changes. stable Reading Location: [place] [address] 07/04/25 01:53 IMPRESSION: No newly developed vertebral fractures, structural collapse or dislocation. Stable study findings as detailed. Reading Location: [place] [address] Humerus X-Ray 07/04/25 02:30 IMPRESSION: Acute comminuted displaced fractures of the humeral surgical neck. Overlying soft tissue edema and swelling. Reading Location: [place] [address] Shoulder X-Ray 07/04/25 02:30 IMPRESSION: Acute comminuted displaced fractures of the humeral surgical neck. Overlying soft tissue edema and swelling. Reading Location: [place] [address] Physical Exam Narrative GENERAL: cooperative HEENT: Atraumatic; normocephalic EYES; Anicteric, Normal Conjunctiva NECK; supple, normal thyroid, RESPIRATORY: Diminished to auscultation CARDIOVASCULAR: Regular S1 S2, GI: soft, normoactive bowel sounds, : No Renal angle tenderness; EXTREMITIES: No edema, no clubbing, MUSCULOSKELETAL: Left shoulder immobilized NEURO: Awake; no lateralizing signs. SKIN: No Rash PSYCH; Flat affect Assessment & Plan Assessment/Plan (1) Left humeral fracture: QUALIFIERS: Encounter type: initial encounter Humerus Location: surgical neck Fracture type: closedFracture morphology: 2-part Fracture alignment: displaced Qualified Code(s): S42.222A - 2-part displaced fracture ofsurgical neck of left humerus, initial encounter for closed fracture PLAN: Plan Patient is a 80-year-old male who presented to the hospital after falling while going up a flight of stairs landing on his left shoulder with subsequent pain imaging studies obtained on admission demonstrated left comminuted displaced fractures of the humeral surgical neck with overlying soft tissue edema. Admitted to the regular nursing floor for further management 1. Nonsyncopal fall with left arm pain Imaging studies obtained on admission demonstrated Acute comminuted displaced fractures of the humeral surgical neck, with Overlying soft tissue edema and swelling. Patient admitted to regular nursing floor for pain management consultplaced Ortho on admission 2. Anemia ? Secondary to chronic disorder monitoring H&H and transfuse if patient becomes symptomatic or hemoglobin falls below 7 3. Coronary artery disease ? Status post CABG. Patient is on guideline directed medical therapy 4. Paroxysmal atrial fibrillation ? Rate controlled on systemic anticoagulation with apixaban 5. Hypertension ? Blood pressure controlled, home medications continued with dose adjustment as needed 6. Diabetes mellitus type II -patient's oral hypoglycemics held. Placed on Accu-Cheks a.c. and at bedtime and covered with sliding scale insulin 7. Hypothyroidism ? Patient is on levothyroxine home dose continued 8. Class II obesity with BMI of 38.6 ? Complicating care weight loss advised 9. Valvular heart disease ? With history of aortic valve replacement 10. DVT prophylaxis ? Patient is on apixaban which was held given patient injury Time spent in the patient's overall evaluation,decision-making process, review of diagnostic data, adjustment of management, discussion with other providers, nursing nursing and ancillary staff involved in patient's care documentation, 40Minutes Charges/Coding Visit Charges Inpatient E&M: 03657 Subs Hosp L2 07/04/25 0850 Cosigner Signature (if applicable): CC: ~ Signed [facility]09-06-2025 History and physical note Author Amarilis Tillman [facility] Note Date/Time July 04, 2025 4:33am [facility] Medical Records Department [address] [place] [address] H&P Exam - Hospitalist 07/04/25 0413 MR#: [id number] Acct: [id number] Name: KANDI GOMEZ Rep #:[id number] : 1945 80 From: Amarilis Tillman MD PCP: Dr. Billy Braga, DO Status:REG ER Location: ED HPI - General General Date of Admission: 07/04/25 Date of Service: 07/04/25 Chief Complaint: Fall, LUE pain/shoulder pain. HPI Narrative The patient is a 80 y/o M w/ PMHx: PAF, Obesity, CAD s/p CABG x 1, Valvular Heart Disease s/p AVR, CKD stage II/III, Diabetes mellitus type II, HTN, HLD, Hypothyroidism, Chronic anemia, recent ED evaluation 07/03/2025 earlier in the morning following mechanical fall noting a been letting the dog out in the morning when he tripped over some boards landing on the concrete with no head trauma or loss of consciousness but he had a laceration to his right hand prompting ED evaluation at that time with laceration repaired with unremarkable plain film discharged to home now re-presenting to the [facility] ED on 07/04/2025 with another mechanical fall noting that he tripped going up 2 stairs landing on his left side with his hand outstretched with significant pain to the LUE/L shoulder following and debility following prompting ED return for evaluation. Workup in the ED included T97.7, heart rate 73, BP 142/72, respiratory rate 20, 92% on room air with most recent repeat vitals heart rate 68, BP 114/65, respiratory rate 20, 90% on room air, CBC with WC 10.1, hemoglobin 0.9, MCV 98.4, platelet 269 with left shift and lymphopenia,CMP with BUN/creatinine 25/1.17, GFR 64, glucose 195, T. bili 1.47 otherwise hepatic profile not marked appearing, CT brain with no acute intracranial findings with chronic stable findings, CT cervical spine with no newly developedvertebral fractures, structural collapse or dislocation, plain film of the left humerus and shoulder with an acute comminuted displaced fracture of the humeral surgical neck with overlying soft tissue edema and swelling. In the ED patient ministered morphine 4 mg IV x 1. Patient's upon arrival rating pain 10 out of 10 in severity. In the ED sling to the left upper extremity placed. ED discussed case with orthopedic surgeon Dr. Rivera who recommended sling with no acute surgical plans per ED report. [facility] Medical History (Updated 07/04/25 @ 04:[address] Amarilis Tillman MD) PAF (paroxysmal atrial fibrillation) Obesity Chronic anemia CAD (coronary artery disease) Hypothyroidism Diabetes mellitus type II, controlled HLD (hyperlipidemia) HTN (hypertension) Valvular heart disease Home Medications ?Medication ?Instructions ?Recorded ?Last Taken ?Type metformin 500 mg tablet 500 mg PO BIDCM DIABETES 02/21/18 History 500 MG metoprolol tartrate 25 mg tablet 25 mg PO BID BLOOD ND ESSURE 02/21/18 02/21/18 History 25 MG cholecalciferol [...] replacement) S/P CABG x 1 Social History household members: spouse Smoking Status: Never smoker alcohol intake: never substance use type: does not use ROS ROS Narrative Admission Review of Systems: CONSTITUTIONAL: No weight loss, fever, chills, + weakness or fatigue. HEENT: Eyes: No visual loss, blurred vision, double vision or yellow sclerae. Ears, Nose, Throat: No hearing loss, sneezing, congestion, runny nose or sore throat. SKIN: No rash or itching, lesions except + right hand with recent laceration repaired with dressing in place with no drainage, significant very stage ecchymoses and abrasion with recent fall with left-sided humeral neck fracture. CARDIOVASCULAR: No chest pain, chest pressure or chest discomfort, palpitations,edema, orthopnea, syncopal events. RESPIRATORY: No shortness of breath, cough or sputum, wheezing, hemoptysis. GASTROINTESTINAL: No anorexia, nausea, vomiting or diarrhea, abdominal pain, melena, BRBPR. GENITOURINARY: No dysuria, frequency, urgency or retention. NEUROLOGICAL: + Frequent falls. No headache, dizziness, syncope, paralysis, ataxia, numbness or tingling in the extremities, focal weakness, change in bowelor bladder control, seizure. MUSCULOSKELETAL: + muscle, back pain, joint pain or stiffness. HEMATOLOGIC: + Chronic anemia, easy bleeding/bruising. LYMPHATICS: No enlarged nodes. No history of splenectomy. PSYCHIATRIC: No history of depression or anxiety. ENDOCRINOLOGIC: No reports of sweating, cold or heat intolerance. No polyuria orpolydipsia. ALLERGIES: No history of asthma, hives, eczema or rhinitis. Vital Signs Vital Signs Vital Signs: 07/04/25 01:17 07/04/25 01:20 07/04/25 02:55 Temperature 97.7 F L Temperature Source Oral Pulse Rate 73 68 Respiratory Rate 20 H 20 H Respiratory Effort Normal Non-Labored Respiratory Depth Normal Respiratory Pattern Normal Blood Pressure 142/72 H 114/65 Blood Pressure Mean 95 81 Pulse Ox 92 90 Oxygen Delivery Method Room Air Room Air Room Air Weight Weight: 281 lb 1.43 oz Body Mass Index (BMI) 39.2 Physical Exam Narrative Physical Examination: General: Awake, alert, oriented x 3 and cooperative, laying in ED bed, fatigued appearing, extremely hard of hearing. Skin: Normal color, normal turgor, no icterus, no cyanosis. HEENT: AT/NC, EOMI, PERRLA, mildly dry MM, no carotid bruits or JVD noted. Lungs: Mildly diminished, greater bases, distant, no obvious distress, appropriate effort, no rales, ronchi or wheezing. Heart: Regular rate and rhythm; no gallop, rub audible, s/p AVR. Abdomen: Soft, obese, NTTP, distant BS, difficult to discern distention HSM given habitus. Extremities: No cyanosis, no clubbing, status post mechanical fall earlier in the day the day prior with right hand with complex suturing with dressing in place with no drainage, left upper extremity status post fall with humeral neck fracture, left upper extremity pulses intact, able to move fingers, sensation appropriate. Neurological: Patient awake, alert, oriented as noted although very hard of hearing of note, cognitive function intact; pupils equally reactive to light andaccommodation, cranial nerves grossly normal, moving all 4 extremities except expected limitation left upper extremity given fall with acute humeral neck fracture, strength accordingly moderately to severely globally decreased. Psychiatric: Affect appears fatigued, uncomfortable, no acute evidence of depressive or anxiety feelings. Results Lab / Micro Data 07/04/25 02:00 07/04/25 02:00 Labs: Laboratory Results - last 24 hr 07/04/25 02:00: WBC 10.1, RBC 3.78 L, Hgb 11.9 L, Hct 37.2 L, MCV 98.4 H, MCH 31.5, MCHC 32.0, RDW Std Deviation 49.6 H, RDW Coeff of Mukul 13.6, Plt Count 269,MPV 9.3, Immature Gran % (Auto) 0.900, Neut % (Auto) 79.6 H, Lymph % (Auto) 6.9 L, Crosby % (Auto) 9.9, Eos % (Auto) 2.2, Baso % (Auto) 0.5, Absolute Neuts (auto)8.1 H, Absolute Lymphs (auto) 0.70 L, Nucleated RBC % 0, Sodium 140, Potassium 4.3, Chloride 106, Carbon Dioxide 23.6, Anion Gap 11, BUN 25 H, Creatinine 1.17,Estim Creat Clear Calc 70.79, Est GFR (MDRD) Non-Af 64, BUN/Creatinine Ratio 21.7 H, Glucose 195 H, Calcium 9.1, Total Bilirubin 1.47 H, AST 24, ALT 19, Alkaline Phosphatase 129, Total Protein 6.5, Albumin 3.8, Globulin 2.7, Albumin/Globulin Ratio 1.4 Imaging Radiology Impression Brain CT 07/04/25 01:53 IMPRESSION: No intracerebral or extra axial hemorrhage. No acute cerebrovascular insult. If clinical symptoms persist, further evaluation with MRI may be considered as clinically warranted. Bilateral cerebral microvascular ischemic changes with mild brain involutional changes. stable Reading Location: [place] [address] 07/04/25 01:53 IMPRESSION: No newly developed vertebral fractures, structural collapse or dislocation. Stable study findings as detailed. Reading Location: [place] [address] Humerus X-Ray 07/04/25 02:30 IMPRESSION: Acute comminuted displaced fractures of the humeral surgical neck. Overlying soft tissue edema and swelling. Reading Location: [place] [address] Shoulder X-Ray 07/04/25 02:30 IMPRESSION: Acute comminuted displaced fractures of the humeral surgical neck. Overlying soft tissue edema and swelling. Reading Location: [place] [address] Assessment & Plan Assessment/Plan (1) Left humeral fracture: PLAN: Plan The patient is a 80 y/o M w/ PMHx: PAF, Obesity, CAD s/p CABG x 1, Valvular Heart Disease s/p AVR, CKD stage II/III, Diabetes mellitus type II, HTN, HLD, Hypothyroidism, Chronic anemia, recent ED evaluation 07/03/2025 earlier in the morning following mechanical fall noting a been letting the dog out in the morning when he tripped over some boards landing on the concrete with no head trauma or loss of consciousness but he had a laceration to his right hand prompting ED evaluation at that time with laceration repaired with unremarkable plain film discharged to home now re-presenting to the [facility] ED on 07/04/2025 with another mechanical fall noting that he tripped going up 2 stairs landing on his left side with his hand outstretched with significant pain to the LUE/L shoulder following and debility following prompting ED return for evaluation. #1. Mechanical fall with acute left comminuted displaced fractures of the humeral surgical neck with overlying soft tissue edema and swelling with significant debility, recurrent falls, adult failure to thrive: Will admit to medical surgical floor, maintain on fall precautions, will continue left upper extremity in the sling, nonweightbearing status, will continue orthopedic surgery consultation initiated per ED, will have oral and IV pain regimen as needed, PT/OT/case management consulted for discharge planning. #2. Chronic macrocytic anemia: Admission hemoglobin 11.9, MCV 98.4, baseline hemoglobin has vacillated primarily 12-13 range, will continue to trend CBC. #3. Chronic Kidney Disease Stage II/III, unclear subtype as has vacillated: Admission BUN/Cr 25/1.17, GFR 64 although previously has been consistent with stage III, unclear if these were acute presentations however, baseline renal function previously 1.4-1.8 but again unclear if these were acute presentation, repeat CMP in the a.m. to further elucidate patient's current renal function status. #4. Valvular heart disease: Status post aortic valve replacement at the same time as CABG x 1 at the [facility], no recent echocardiogram noted in [employer] system. #5. CAD: Status post CABG x 1, will continue aspirin, statin, metoprolol, lisinopril home regimen. Holding eliquis temporarily. #6. Diabetes mellitus type II: Hold oral home regimen, ADA diet, accu checks w/ISS. #7. Hypertension: Continue home regimen including lisinopril, Lasix with hold parameters as needed, PRN hydralazine. #8. Hyperlipidemia: Will continue patient on statin therapy. #9. Hypothyroidism: Will continue patient on levothyroxine regimen. #10. Obesity: Weight loss and lifestyle changes encouraged. #11. PAF: Will continue patient home metoprolol, temporally holding Eliquis pending orthopedic surgery evaluation although at this time do not suspect any surgical intervention but just in case. #12. DVT prophylaxis: SCDs, will temporally hold Eliquis as noted. #13. CODE status: Patient ELI is his and living will is currently in place. Discussed CODE status at length including difference between FULL code, DNR-CCA and DNR-CC status. Following discussions about the differences in these status, requested Full Code status.. Charges/Coding Visit Charges Inpatient E&M: 27141 Init Hosp L3 07/04/25 0433 <Electronically signed by Amarilis Tillman MD> Cosigner Signature (if applicable): CC: Dr. Amarilis Tillman MD; Dr. Billy Braga, DO~ Signed [facility] Work Phone: 1([phone]) 609-797909-06-2025 Evaluation note* Diagnosis Onset Date Resolution Status Admit Date Left humeral fracture acute Sep 2024 4:14am [facility] Work Phone: 1(190) 584-274009-06-2025 Discharge summary [address] Randy [facility] Note Date/Time July 04, 2025 4:12am [facility] Medical Records Department [address] [place] [address] Emergency Department Summary 07/04/25 MR#: [id number] Acct: [id number] Name: KANDI GOMEZ Rep #:[id number] : 1945 80 From: Randy Marroquin PCP: Dr. Billy Braga, Status:REG ER Location: ED HPI History of Present Illness Chief Complaint: Fall [facility] Medical History Tonsil and adenoid disease, chronic Hernia Coronary atherosclerosis due to severely calcified coronary lesion Home Medications ?Medication ?Instructions ?Recorded ?Last Taken ?Type metformin 500 mg tablet 500 mg PO BIDCM DIABETES 02/21/18 History 500 MG metoprolol tartrate 25 mg tablet 25 mg PO BID BLOOD ND ESSURE 02/21/18 02/21/18 History 25 MG cholecalciferol [...] replacement) S/P CABG x 1 Social History household members: spouse Smoking Status: Never smoker alcohol intake: never substance use type: does not use EXAM Physical Exam Const Vital Signs: 07/04/25 01:17 07/04/25 01:20 07/04/25 02:55 Temperature 97.7 F L Temperature Source Oral Pulse Rate 73 68 Respiratory Rate 20 H 20 H Respiratory Effort Normal Non-Labored Respiratory Depth Normal Respiratory Pattern Normal Blood Pressure 142/72 H 114/65 Blood Pressure Mean 95 81 Pulse Ox 92 90 Oxygen Delivery Method Room Air Room Air Room Air [facility] [place] Medical decision making narrative: HISTORY OF PRESENT ILLNESS: Chief complaint: Fall, left shoulder pain 80-year-old male history of CAD, aortic valve replacement on [facility] presents with fall. Notes he tripped going up 2 stairs. Denies head trauma or loss of consciousness. Denies syncope prior to fall. REVIEW OF SYSTEMS: Pertinent positives: Fall, left arm pain Pertinent negatives: As per HPI PHYSICAL EXAM: Nursing triage notes reviewed, Vital signs reviewed Primary Survey Airway: Intact Breathing: Bilateral breath sounds Circulation: Palpable bilateral femorals, Palpable bilateral radial, Palpable bilateral DP and Palpable bilateral PT Disability / Spine precautions GCS Score: Eye Openin Verbal Response: 5 Motor Response: 6 Secondary Survey Constitutional: Please see MDM Head: Atraumatic, Midface stable, NO jaw malocclusion, No Cephalohematoma, and No Lacerations noted Eye: Pupils equal round and reactive to light, Extraocular muscles intact and Noperiorbital ecchymosis or stepoff, no evidence of entrapment ENT: Oropharynx clear, no lacerations, no hemotympanum, no raccoon eyes or mcclain sign Cervical spine / Neck: No cervical spine bony tenderness, crepitance, or stepoffdeformity Trachea midline Lungs: Clear to auscultation, No asymmetric rise and No crepitus, no flail chest Cardiac: Regular rate and rhythm and No murmurs Abdomen: Soft, Nontender and No rebound Pelvis: Pelvis stable to compression : No evidence of genital injury Back: No midline bony tenderness to thoracic/lumbar/sacral spines Neuro: At baseline, has movement in all 4 extremities, appears to have sensationall 4 extremities, 2+ patellar reflexes bilaterally. Extremities: Obvious deformity to left upper extremity, TTP over proximal humerus. Left upper extremity otherwise warm and well-perfused. Psych: Normal affect Nursing triage notes reviewed, Vital signs reviewed MEDICAL DECISION MAKING: Chief Complaint: please see HPI External records reviewed: Reviewed prior imaging studies Factors affecting care: Social determinants of health: none History obtained from others: EMS Consults: Internal Medicine (Dr. Tillman), orthopedic surgery (Dr. Rivera) MDM Narrative: The patient was initially hemodynamically stable, afebrile and nontoxic- appearing. Primary secondary trauma surveys concerning for left arm trauma. Given patient's history of Eliquis I obtained imaging of the head and neck as well. I considered the following differential diagnosis: ICH, cervical spine injury, left arm injury I obtained broad lab and imaging work to further determine if the patient was suffering from a life-threatening etiology. Gave morphine for pain control ALL IMAGES (IF OBTAINED) HAVE BEEN PERSONALLY REVIEWED AND INTERPRETED BY MYSELF. X-ray of the left humerus/left shoulder was read reviewed personally myself showed evidence of a proximal humerus fracture. CT scan of the head and neck were negative for acute traumatic injury Labs with mild anemia otherwise no leukocytosis, kidney dysfunction, liver abnormalities. Discussed the case with orthopedic surgery on-call recommended no acute surgicalintervention for humerus fracture. Also discussed with hospitalist given the patient's advanced age, multiple falls and inability use both arms he would needhospitalization for pain control, PT OT and possible placement. The patient and/or family, caregivers express understanding. The patient and/orfamily, caregivers agrees with the plan. Shared decision making: I will have a discussion with the patient and or visitors regarding risk/benefits of further testing or admission. They will be made aware of of the risk/benefits inherent in this decision they will be given the opportunity to voice understanding. Total critical care time today provided was at least 0 minutes. This excludes separately billable procedures. Critical care time (if documented) is secondary to the patient having high probability of clinically significant/life threatening deterioration in the patient's condition which required my urgent intervention. Impression: 1. Fall 2. Left humerus fracture 3. History of chronic anticoagulation Dispo: Admit to [facility] This note was generated with Play[employer] dictation software. It may contain incorrectwords, spelling, and punctuation that were not noted in review of the chart prior to signing. Lab Data Labs: Laboratory Results - last 24 hr 07/04/25 02:00 WBC 10.1 RBC 3.78 L Hgb 11.9 L Hct 37.2 L MCV 98.4 H MCH 31.5 MCHC 32.0 RDW Std Deviation 49.6 H RDW Coeff of Mukul 13.6 Plt Count 269 MPV 9.3 Immature Gran % (Auto) 0.900 Neut % (Auto) 79.6 H Lymph % (Auto) 6.9 L Crosby % (Auto) 9.9 Eos % (Auto) 2.2 Baso % (Auto) 0.5 Absolute Neuts (auto) 8.1 H Absolute Lymphs (auto) 0.70 L Nucleated RBC % 0 Sodium 140 Potassium 4.3 Chloride 106 Carbon Dioxide 23.6 Anion Gap 11 BUN 25 H Creatinine 1.17 Estim Creat Clear Calc 70.79 Est GFR (MDRD) Non-Af 64 BUN/Creatinine Ratio 21.7 H Glucose 195 H Calcium 9.1 Total Bilirubin 1.47 H AST 24 ALT 19 Alkaline Phosphatase 129 Total Protein 6.5 Albumin 3.8 Globulin 2.7 Albumin/Globulin Ratio 1.4 Radiography Diagnostic Testing: Clinical Impression(s) from Imaging Studies Brain CT 07/04/25 01:53 IMPRESSION: No intracerebral or extra axial hemorrhage. No acute cerebrovascular insult. If clinical symptoms persist, further evaluation with MRI may be considered as clinically warranted. Bilateral cerebral microvascular ischemic changes with mild brain involutional changes. stable [facility] CT 07/04/25 01:53 IMPRESSION: No newly developed vertebral fractures, structural collapse or dislocation. Stable study findings as detailed. [facility] Triage Chief Complaint: Fall ED Provider: Randy Gibson Dx/Rx/DC Orders Prescriptions: No Action metformin 500 MG tablet [...] Billy Braga DO [Primary Care Provider] - Print Language: Anguillan What to do if you have Problems For any increased pain, shortness of breath, bleeding, nausea or vomiting, chestpain, or any unexpected problems, contact your Primary Care Provider. Call [facility] ([phone]) or report to the closest Emergency Room. Call 911 if necessary. 07/04/25411 <Electronically signed by Randy Gibson DO> Cosigner Signature (if applicable): CC: Dr. Billy Braga DO ~ Signed [facility] Work Phone: 1(556) 974-493309-06-2025 History and physical note [facility] Medical Records Department [address] [place] [address] H&P Exam - Hospitalist 07/04/25412 MR#: [id number] Acct: [id number] Name: KANDI GOMEZ Rep #:[id number] : 1945 80 From: Amarilis Tillman MD PCP: Dr. Billy Maria Luz, DO Status:REG ER Location: ED HPI - General General Date of Admission: 07/04/25 Date of Service: 07/04/25 Chief Complaint: Fall, LUE pain/shoulder pain. HPI Narrative The patient is a 80 y/o M w/ PMHx: PAF, Obesity, CAD s/p CABG x 1, Valvular Heart Disease s/p AVR, CKD stage II/III, Diabetes mellitus type II, HTN, HLD, Hypothyroidism, Chronic anemia, recent ED evaluation 07/03/2025 earlier in the morning following mechanical fall noting a been letting the dog out in the morning when he tripped over some boards landing on the concrete with no head trauma or loss of consciousness but he had a laceration to his right hand prompting ED evaluation at that time withlaceration repaired with unremarkable plain film discharged to home now re-presenting to the [facility] ED on 07/04/2025 with another mechanical fall noting that he tripped going up 2 stairs landing on his left side with his hand outstretched with significant pain to the LUE/L shoulder following and debility following prompting ED return for evaluation. Workup in the ED included T97.7, heart rate 73, BP 142/72, respiratory rate 20, 92% on room air with most recent repeat vitals heart rate 68, BP 114/65, respiratory rate 20, 90% on room air, CBC with WC 10.1, hemoglobin 0.9, MCV 98.4, platelet 269 with left shift and lymphopenia,CMP with BUN/creatinine 25/1.17, GFR 64, glucose 195, T. bili 1.47 otherwise hepatic profile not marked appearing, CT brain with no acute intracranial findings with chronic stable findings, CT cervical spine with no newly developedvertebral fractures, structural collapse or dislocation, plain film of the left humerus and shoulder with an acute comminuted displaced fracture of the humeral surgical neck with overlying soft tissue edema and swelling. In the ED patient ministered morphine 4 mg IV x 1. Patient's upon arrival rating pain 10 out of 10 in severity. In the ED sling to the left upper extremity placed. ED discussed case with orthopedicsurgeon Dr. Rivera who recommended sling with no acute surgical plans per ED report. [facility] Medical History (Updated 07/04/25 @ 04:[address] Amarilis Tillman MD) PAF (paroxysmal atrial fibrillation) Obesity Chronic anemia CAD (coronary artery disease) Hypothyroidism Diabetes mellitus type II, controlled HLD (hyperlipidemia) HTN (hypertension) Valvular heart disease Home Medications ?Medication ?Instructions ?Recorded ?Last Taken ?Type metformin 500 mg tablet 500 mg PO BIDCM DIABETES 02/21/18 History 500 MG metoprolol tartrate 25 mg tablet 25 mg PO BID BLOOD ND ESSURE 02/21/18 02/21/18 History 25 MG cholecalciferol [...] replacement) S/P CABG x 1 Social History household members: spouse Smoking Status: Never smoker alcohol intake: never substance use type: does not use ROS ROS Narrative Admission Review of Systems: CONSTITUTIONAL: No weight loss, fever, chills, + weakness or fatigue. HEENT: Eyes: No visual loss, blurred vision, double vision or yellow sclerae. Ears, Nose, Throat: No hearing loss, sneezing, congestion, runny nose or sore throat. SKIN: No rash or itching, lesions except + right hand with recent laceration repaired with dressingin place with no drainage, significant very stage ecchymoses and abrasion with recent fall with left-sided humeral neck fracture. CARDIOVASCULAR: No chest pain, chest pressure or chest discomfort, palpitations,edema, orthopnea, syncopal events. RESPIRATORY: No shortness of breath, cough or sputum, wheezing, hemoptysis. GASTROINTESTINAL: No anorexia, nausea, vomiting or diarrhea, abdominal pain, melena, BRBPR. GENITOURINARY: No dysuria, frequency, urgency or retention. NEUROLOGICAL: + Frequent falls. No headache, dizziness, syncope, paralysis, ataxia, numbness or tingling in the extremities, focal weakness, change in bowelor bladder control, seizure. MUSCULOSKELETAL: + muscle, back pain, joint pain or stiffness. HEMATOLOGIC: + Chronic anemia, easy bleeding/bruising. LYMPHATICS: No enlarged nodes. No history of splenectomy. PSYCHIATRIC: No history of depression or anxiety. ENDOCRINOLOGIC: No reports of sweating, cold or heat intolerance. No polyuria orpolydipsia. ALLERGIES: No history of asthma, hives, eczema or rhinitis. Vital Signs Vital Signs Vital Signs: 07/04/25 01:17 07/04/25 01:20 07/04/25 02:55 Temperature 97.7 F L Temperature Source Oral Pulse Rate 73 68 Respiratory Rate 20 H 20 H Respiratory Effort Normal Non-Labored Respiratory Depth Normal Respiratory Pattern Normal Blood Pressure 142/72 H 114/65 Blood Pressure Mean 95 81 Pulse Ox 92 90 Oxygen Delivery Method Room Air Room Air Room Air Weight Weight: 281 lb 1.43 oz Body Mass Index (BMI) 39.2 Physical Exam Narrative Physical Examination: General: Awake, alert, oriented x 3 and cooperative, laying in ED bed, fatigued appearing, extremely hard of hearing. Skin: Normal color, normal turgor, no icterus, no cyanosis. HEENT: AT/NC, EOMI, PERRLA, mildly dry MM, no carotid bruits or JVD noted. Lungs: Mildly diminished, greater bases, distant, no obvious distress, appropriate effort, no rales, ronchi or wheezing. Heart: Regular rate and rhythm; no gallop, rub audible, s/p AVR. Abdomen: Soft, obese, NTTP, distant BS, difficult to discern distention HSM given habitus. Extremities: No cyanosis, no clubbing, status post mechanical fall earlier in the day the day priorwith right hand with complex suturing with dressing in place with no drainage, left upper extremitystatus post fall with humeral neck fracture, left upper extremity pulses intact, able to move fingers, sensation appropriate. Neurological: Patient awake, alert, oriented as noted although very hard of hearing of note, cognitive function intact; pupils equally reactive to light andaccommodation, cranial nerves grossly normal, moving all 4 extremities except expected limitation left upper extremity given fall with acute humeral neck fracture, strength accordingly moderately to severely globally decreased. Psychiatric: Affect appears fatigued, uncomfortable, no acute evidence of depressive or anxiety feelings. Results Lab / Micro Data 07/04/25 02:00 07/04/25 02:00 Labs: Laboratory Results - last 24 hr 07/04/25 02:00: WBC 10.1, RBC 3.78 L, Hgb 11.9 L, Hct 37.2 L, MCV 98.4 H, MCH 31.5, MCHC 32.0, RDW Std Deviation 49.6 H, RDW Coeff of Mukul 13.6, Plt Count 269,MPV 9.3, Immature Gran % (Auto) 0.900, Neut % (Auto) 79.6 H, Lymph % (Auto) 6.9 L, Crosby % (Auto) 9.9, Eos % (Auto) 2.2, Baso % (Auto) 0.5, Absolute Neuts (auto)8.1 H, Absolute Lymphs (auto) 0.70 L, Nucleated RBC % 0, Sodium 140, Potassium 4.3, Chloride 106, Carbon Dioxide 23.6, Anion Gap 11, BUN 25 H, Creatinine 1.17,Estim Creat Clear Calc70.79, Est GFR (MDRD) Non-Af 64, BUN/Creatinine Ratio 21.7 H, Glucose 195 H, Calcium 9.1, Total Bilirubin 1.47 H, AST 24, ALT 19, Alkaline Phosphatase 129, Total Protein 6.5, Albumin 3.8, Globulin 2.7, Albumin/Globulin Ratio 1.4 Imaging Radiology Impression Brain CT 07/04/25 01:53 IMPRESSION: No intracerebral or extra axial hemorrhage. No acute cerebrovascular insult. If clinical symptoms persist, further evaluation with MRI may be considered as clinically warranted. Bilateral cerebral microvascular ischemic changes with mild brain involutional changes. stable Reading Location: [facility] Cervical Sp[address] CT 07/04/25 01:53 IMPRESSION: No newly developed vertebral fractures, structural collapse or dislocation. Stable study findings as detailed. Reading Location: [facility] Humerus X-Ray 07/04/25 02:30 IMPRESSION: Acute comminuted displaced fractures of the humeral surgical neck. Overlying soft tissue edema and swelling. Reading Location: [facility] Shoulder X-Ray 07/04/25 02:30 IMPRESSION: Acute comminuted displaced fractures of the humeral surgical neck. Overlying soft tissue edema and swelling. Reading [facility] Assessment & Plan Assessment/Plan (1) Left humeral fracture: PLAN: Plan The patient is a 80 y/o M w/ PMHx: PAF, Obesity, CAD s/p CABG x 1, Valvular Heart Disease s/p AVR, CKD stage II/III, Diabetes mellitus type II, HTN, HLD, Hypothyroidism, Chronic anemia, recent ED evaluation 07/03/2025 earlier in the morning following mechanical fall noting a been letting the dog out in the morning when he tripped over some boards landing on the concrete with no head trauma or loss of consciousness but he had a laceration to his right hand prompting ED evaluation at that time withlaceration repaired with unremarkable plain film discharged to home now re-presenting to the [facility] ED on 07/04/2025 with another mechanical fall noting that he tripped going up 2 stairs landing on his left side with his hand outstretched with significant pain to the LUE/L shoulder following and debility following prompting ED return for evaluation. #1. Mechanical fall with acute left comminuted displaced fractures of the humeral surgical neck with overlying soft tissue edema and swelling with significant debility, recurrent falls, adult failureto thrive: Will admit to medical surgical floor, maintain on fall precautions, will continue left upper extremity in the sling, nonweightbearing status, will continue orthopedic surgery consultation initiated per ED, will have oral and IV pain regimen as needed, PT/OT/case management consulted for discharge planning. #2. Chronic macrocytic anemia: Admission hemoglobin 11.9, MCV 98.4, baseline hemoglobin has vacillated primarily 12-13 range, will continue to trend CBC. #3. Chronic Kidney Disease Stage II/III, unclear subtype as has vacillated: Admission BUN/Cr 25/1.17, GFR 64 although previously has been consistent with stage III, unclear if these were acute presentations however, baseline renal function previously 1.4-1.8 but again unclear if these were acute presentation, repeat CMP in the a.m. to further elucidate patient's current renal function status. #4. Valvular heart disease: Status post aortic valve replacement at the same time as CABG x 1 at the [facility], no recent echocardiogram noted in [employer] system. #5. CAD: Status post CABG x 1, will continue aspirin, statin, metoprolol, lisinopril home regimen. Holding eliquis temporarily. #6. Diabetes mellitus type II: Hold oral home regimen, ADA diet, accu checks w/ISS. #7. Hypertension: Continue home regimen including lisinopril, Lasix with hold parameters as needed,PRN hydralazine. #8. Hyperlipidemia: Will continue patient on statin therapy. #9. Hypothyroidism: Will continue patient on levothyroxine regimen. #10. Obesity: Weight loss and lifestyle changes encouraged. #11. PAF: Will continue patient home metoprolol, temporally holding Eliquis pending orthopedic surgery evaluation although at this time do not suspect any surgical intervention but just in case. #12. DVT prophylaxis: SCDs, will temporally hold Eliquis as noted. #13. CODE status: Patient ELI is his and living will is currently in place. Discussed CODE status at length including difference between FULL code, DNR-CCA and DNR-CC status. Following discussions about the differences in these status, requested Full Code status.. Charges/Coding Visit Charges Inpatient E&M: 94970 Init Hosp L3 07/04/25 3292 Cosigner Signature (if applicable): CC: Dr. Amarilis Tillman MD; Dr. Billy Braga, DO~ Signed [facility]09-06-2025 Discharge summary [facility] Medical Records Department [address] [place] [address] Emergency Department Summary 07/04/25 MR#: [id number] Acct: [id number] Name: KANDI GOMEZ Rep #:[id number] : 1945 80 From: Randy Marroquin PCP: Dr. Billy Braga DO Status:REG ER Location: ED HPI History of Present Illness Chief Complaint: Fall PFSH [facility] Medical History Tonsil and adenoid disease, chronic Hernia Coronary atherosclerosis due to severely calcified coronary lesion Home Medications ?Medication ?Instructions ?Recorded ?Last Taken ?Type metformin 500 mg tablet 500 mg PO BIDCM DIABETES 02/21/18 History 500 MG metoprolol tartrate 25 mg tablet 25 mg PO BID BLOOD ND ESSURE 02/21/18 02/21/18 History 25 MG cholecalciferol [...] replacement) S/P CABG x 1 Social History household members: spouse Smoking Status: Never smoker alcohol intake: never substance use type: does not use EXAM Physical Exam Const Vital Signs: 07/04/25 01:17 07/04/25 01:20 07/04/25 02:55 Temperature 97.7 F L Temperature Source Oral Pulse Rate 73 68 Respiratory Rate 20 H 20 H Respiratory Effort Normal Non-Labored Respiratory Depth Normal Respiratory Pattern Normal Blood Pressure 142/72 H 114/65 Blood Pressure Mean 95 81 Pulse Ox 92 90 Oxygen Delivery Method Room Air Room Air Room Air MDM MDM MDM Narrative Medical decision making narrative: HISTORY OF PRESENT ILLNESS: Chief complaint: Fall, left shoulder pain 80-year-old male history of CAD, aortic valve replacement on Eliquis presents with fall. Notes he tripped going up 2 stairs. Denies head trauma or loss of consciousness. Denies syncope prior to fall. REVIEW OF SYSTEMS: Pertinent positives: Fall, left arm pain Pertinent negatives: As per HPI PHYSICAL EXAM: Nursing triage notes reviewed, Vital signs reviewed Primary Survey Airway: Intact Breathing: Bilateral breath sounds Circulation: Palpable bilateral femorals, Palpable bilateral radial, Palpable bilateral DP and Palpable bilateral PT Disability / Spine precautions GCS Score: Eye Openin Verbal Response: 5 Motor Response: 6 Secondary Survey Constitutional: Please see MDM Head: Atraumatic, Midface stable, NO jaw malocclusion, No Cephalohematoma, and No Lacerations noted Eye: Pupils equal round and reactive to light, Extraocular muscles intact and Noperiorbital ecchymosis or stepoff, no evidence of entrapment ENT: Oropharynx clear, no lacerations, no hemotympanum, no raccoon eyes or mcclain sign Cervical spine / Neck: No cervical spine bony tenderness, crepitance, or stepoffdeformity Trachea midline Lungs: Clear to auscultation, No asymmetric rise and No crepitus, no flail chest Cardiac: Regular rate and rhythm and No murmurs Abdomen: Soft, Nontender and No rebound Pelvis: Pelvis stable to compression : No evidence of genital injury Back: No midline bony tenderness to thoracic/lumbar/sacral spines Neuro: At baseline, has movement in all 4 extremities, appears to have sensationall 4 extremities, 2+ patellar reflexes bilaterally. Extremities: Obvious deformity to left upper extremity, TTP over proximal humerus. Left upper extremity otherwise warm and well-perfused. Psych: Normal affect Nursing triage notes reviewed, Vital signs reviewed MEDICAL DECISION MAKING: Chief Complaint: please see HPI External records reviewed: Reviewed prior imaging studies Factors affecting care: Social determinants of health: none History obtained from others: EMS Consults: Internal Medicine (Dr. Tillman), orthopedic surgery (Dr. Rivera) MDM Narrative: The patient was initially hemodynamically stable, afebrile and nontoxic- appearing. Primary secondary trauma surveys concerning for left arm trauma. Given patient's history of Eliquis I obtained imaging of the head and neck as well. I considered the following differential diagnosis: ICH, cervical spine injury, left arm injury I obtained broad lab and imaging work to further determine if the patient was suffering from a life-threatening etiology. Gave morphine for pain control ALL IMAGES (IF OBTAINED) HAVE BEEN PERSONALLY REVIEWED AND INTERPRETED BY MYSELF. X-ray of the left humerus/left shoulder was read reviewed personally myself showed evidence of a proximal humerus fracture. CT scan of the head and neck were negative for acute traumatic injury Labs with mild anemia otherwise no leukocytosis, kidney dysfunction, liver abnormalities. Discussed the case with orthopedic surgery on-call recommended no acute surgicalintervention for humerus fracture. Also discussed with hospitalist given the patient's advanced age, multiple falls andinability use both arms he would needhospitalization for pain control, PT OT and possible placement. The patient and/or family, caregivers express understanding. The patient and/orfamily, caregivers agrees with the plan. Shared decision making: I will have a discussion with the patient and or visitors regarding risk/benefits of further testing or admission. They will be made aware of of the risk/benefits inherent in this decision they will be given the opportunity to voice understanding. Total critical care time today provided was at least 0 minutes. This excludes separately billable procedures. Critical care time (if documented) is secondary to the patient having high probability ofclinically significant/life threatening deterioration in the patient's condition which required my urgent intervention. Impression: 1. Fall 2. Left humerus fracture 3. History of chronic anticoagulation Dispo: Admit to [facility] This note was generated with Play[employer]ape dictation software. It may contain incorrectwords, spelling, and punctuation that were not noted in review of the chart prior to signing. Lab Data Labs: Laboratory Results - last 24 hr 07/04/25 02:00 WBC 10.1 RBC 3.78 L Hgb 11.9 L Hct 37.2 L MCV 98.4 H MCH 31.5 MCHC 32.0 RDW Std Deviation 49.6 H RDW Coeff of Mukul 13.6 Plt Count 269 MPV 9.3 Immature Gran % (Auto) 0.900 Neut % (Auto) 79.6 H Lymph % (Auto) 6.9 L Crosby % (Auto) 9.9 Eos % (Auto) 2.2 Baso % (Auto) 0.5 Absolute Neuts (auto) 8.1 H Absolute Lymphs (auto) 0.70 L Nucleated RBC % 0 Sodium 140 Potassium 4.3 Chloride 106 Carbon Dioxide 23.6 Anion Gap 11 BUN 25 H Creatinine 1.17 Estim Creat Clear Calc 70.79 Est GFR (MDRD) Non-Af 64 BUN/Creatinine Ratio 21.7 H Glucose 195 H Calcium 9.1 Total Bilirubin 1.47 H AST 24 ALT 19 Alkaline Phosphatase 129 Total Protein 6.5 Albumin 3.8 Globulin 2.7 Albumin/Globulin Ratio 1.4 Radiography Diagnostic Testing: Clinical Impression(s) from Imaging Studies Brain CT 07/04/25 01:53 IMPRESSION: No intracerebral or extra axial hemorrhage. No acute cerebrovascular insult. If clinical symptoms persist, further evaluation with MRI may be considered as clinically warranted. Bilateral cerebral microvascular ischemic changes with mild brain involutional changes. stable Reading Location: [place] [address] 07/04/25 01:53 IMPRESSION: No newly developed vertebral fractures, structural collapse or dislocation. Stable study findings as detailed. Reading Location: [place] [address] Discharge Plan Triage Chief Complaint: Fall ED Provider: Randy Gibson Dx/Rx/DC Orders Prescriptions: No Action metformin 500 MG tablet [...] Billy Braga DO [Primary Care Provider] - Print Language: Anguillan What to do if you have Problems For any increased pain, shortness of breath, bleeding, nausea or vomiting, chestpain, or any unexpected problems, contact your Primary Care Provider. Call [facility] ([phone]) or report tothe closest Emergency Room. Call 911 if necessary. 07/04/25 0412 Cosigner Signature (if applicable): CC: Dr. Billy Braga DO ~ Signed [facility]09-06-2025 Radiology Diagnostic study note [facility] Imaging Services [address] [place] [address] Humerus min 2 Views MR#: [id number] Acct: [id number] Name: KANDI GOMEZ Rep #: [id number] : 1945 M 80 From: Nadir Blevins MD PCP: Dr. Billy Braga DO Status: REG ER Study:Humerus min 2 Views Date of Exam: 07/04/25 Exam# [id number] Ordering Dr: Damion Gibson DO PROCEDURE: HUMERUS MIN 2 VIEWS 07/04/2025 REASON FOR EXAM: PAIN AFTER FALL TECHNIQUE: Procedure Code: RADHUM Modality: DX Procedure: HUMERUS MIN 2 VIEWS Laterality: LEFT. COMPARISON: NONE. FINDINGS: Acute comminuted displaced fractures of the humeral surgical neck. Overlying soft tissue edema and swelling. No dislocation is seen. RAD/Humerus min 2 Views IMPRESSION: Acute comminuted displaced fractures of the humeral surgical neck. Overlying soft tissue edema and swelling. Reading Location: [facility] CC: Dr. Billy Braga DO; Dr. Randy Gibson DO ~ Cloth Bin Packer: Signed [facility]09-06-2025 Radiology Diagnostic study note [facility] Imaging Services [address] [place] [address] Shoulder min 2 Views MR#: [id number] Acct: [id number] Name: KANDI GOMEZ Rep #: [id number] : 1945 M 80 From: Nadir Blevins MD PCP: Dr. Billy Braga DO Status: REG ER Study:Shoulder min 2 Views Date of Exam: 07/04/25 Exam# [id number] Ordering Dr: Damion Gibson DO PROCEDURE: SHOULDER MIN 2 VIEWS 07/04/2025 REASON FOR EXAM: PAIN AFTER FALL TECHNIQUE: Procedure Code: RADSH Modality: DX Procedure: SHOULDER MIN 2 VIEWS Laterality: LEFT. COMPARISON: NONE. FINDINGS: Acute comminuted displaced fractures of the humeral surgical neck. Overlying soft tissue edema and swelling. Mild osteopenia of the visualized bones. Degenerative joint disease. No dislocation is seen. No lytic or blastic bone lesion is noted. RAD/Shoulder min 2 Views IMPRESSION: Acute comminuted displaced fractures of the humeral surgical neck. Overlying soft tissue edema and swelling. Reading Location: [facility] CC: Dr. Billy Braga DO; Dr. Randy Gibson DO ~ Cloth Bin Packer: Signed [facility]09-06-2025 Radiology Diagnostic study note [facility] Imaging Services [address] [place], [place] [address] Spine Cervical without Contras MR#: [id number] Acct: [id number] Name: KANDI GOMEZ Rep #: [id number] : 1945 M 80 From: Nadir Blevins MD PCP: Dr. Billy Braga DO Status: REG ER Study:Spine Cervical without Contras Date of Exam: 07/04/25 Exam# [id number] Ordering Dr: Damion Gibson DO PROCEDURE: SPINE CERVICAL WITHOUT CONTRAS 07/04/2025 REASON FOR EXAM: FALL TECHNIQUE: Procedure Code: CTSPC Modality: CT Procedure: SPINE CERVICAL WITHOUT CONTRAS Coronal and Sagittal reconstruction series were provided. One or more dose reduction techniques were used (e.g., Automated exposure control, adjustment of the mA and/or kV according to patient size, use of iterative reconstruction technique. RADIATION DOSE SUMMARY: CTDlvol: 61.79 mGy DLP: 1540 mGycm COMPARISON: 07-03-2025 FINDINGS: Straightened cervical lordosis denoting myospasm. 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 The examined vertebral bodies show no structural collapse or posterior neural elements fractures. Intact atlanto-axial interval. Degenerative changes of the atlanto-odontoid articulation with related capsular calcifications. Cervical spondylodegenerative changes evident by marginal osteophytic lipping and multilevel subchondral sclerosis of the examined vertebral end plates with multilevel disc spaces narrowing with vacuum phenomenon. Multilevel degenerative unco-vertebral arthropathy with osteophytes formation seen encroaching uponthe corresponding neural exit foramina. Multilevel degenerative facet arthropathy, more on the left side. Multilevel diffuse disc bulges with posterior osteophytes and annular calcifications indenting the theca and encroaching upon the related neural exit foramina. No developmental spinal canal stenosis. No paraspinal masses. Vascular atheromatous calcifications CT/Spine Cervical without Contras IMPRESSION: No newly developed vertebral fractures, structural collapse or dislocation. Stable study findings as detailed. Reading Location: [place] [address] CC: Dr. Billy Braga DO; Dr. Randy Gibson DO ~ Cloth Bin Packer: Signed [facility]09-06-2025 Radiology Diagnostic study note [facility] Imaging Services [address] [place] [address] Brain/Head without Contrast MR#: [id number] Acct: [id number] Name: KANDI GOMEZ Rep #: [id number] : 1945 M 80 From: Nadir Blevins MD PCP: Dr. Billy Braga DO Status: REG ER Study:Brain/Head without Contrast Date of Exa m: 07/04/25 Exam# [id number] Ordering Dr: Damion Gibson DO PROCEDURE: BRAIN/HEAD WITHOUT CONTRAST 07/04/2025 REASON FOR EXAM: FALL, HEAD TRAUMA TECHNIQUE: Procedure Code: CTBR Modality: CT Procedure: BRAIN/HEAD WITHOUT CONTRAST Coronal and Sagittal reconstruction series were provided. One or more dose reduction techniques were used (e.g., Automated exposure control, adjustment of the mA and/or kV according to patient size, use of iterative reconstruction technique. RADIATION DOSE SUMMARY: CTDlvol: 28.14 mGy DLP: 599.21 mGycm COMPARISON: 07-03-2025 FINDINGS: Accentuated bilateral cerebral periventricular deep white matter hypodensities suggesting hypoperfusion with scattered hypodense foci suggestive of microvascular ischemic changes. Salvador-white matter differentiation is maintained. Right cerebellar small area of encephalomalacia. Otherwise, normal CT appearance of the posterior fossa structures. No intracerebral or extra axial hemorrhage. No definite calvarial fractures. Unremarkable ventricular system. Prominent cortical sulci and extra-axial CSF spaces No midline shifts or deformity. The osseous structures in the skull base are unremarkable. The scanned paranasal sinuses show lamellar and focal mucosal thickening of the maxillary antra andethmoidal air cells. CT/Brain/Head without Contrast IMPRESSION: No intracerebral or extra axial hemorrhage. No acute cerebrovascular insult. If clinical symptoms persist, further evaluation with MRI may be considered as clinically warranted. Bilateral cerebral microvascular ischemic changes with mild brain involutional changes. stable Reading Location: [place] [address] CC: Dr. Billy Braga DO; Dr. Randy Gibson DO ~ Cloth Bin Packer: Signed [facility]09-05-2025 Discharge summary [facility] Medical Records Department [address] [place] [address] Emergency Department Summary 07/03/25 MR#: [id number] Acct: [id number] Name: KANDI GOMEZ Rep #:[id number] : 1945 80 From: Mj Ngo DO [...] on the concrete. He states that he didhit hishead but did not pass out. He states that he is on Eliquis as well. Patient states he is unsure when his last tetanus shot was. He is complaining of right hand pain and a cut. [facility] Medical History Tonsil and adenoid disease, chronic Hernia Coronary atherosclerosis due to severely calcified coronary lesion Home Medications ?Medication ?Instructions ?Recorded ?Last Taken ?Type metformin 500 mg tablet 500 mg PO BIDCM DIABETES 02/21/18 History 500 MG metoprolol tartrate 25 mg tablet 25 mg PO BID BLOOD ND ESSURE 02/21/18 02/21/18 History 25 MG cholecalciferol [...] following commands knew that he was at [facility] year is 2024 Skin: Warm, dry, [...] IMPRESSION: No acute intracranial process. 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 Possible fracture of the anterior osteophyte at C4. No other acute compression deformity, fracture, or subluxation. Moderate multilevel degenerative changes of the cervical spine with moderate central canal stenosismost prominent at C6-C7. Reading Location: [facility] Forearm X-Ray 07/03/25 07:11 IMPRESSION: No acute fracture or dislocations. Scattered mild degenerative changes. No acute soft tissue abnormalities. No radiographic foreign body. Reading Location: [facility] Hand X-Ray 07/03/25 07:11 IMPRESSION: No acute fracture or dislocations. Scattered mild degenerative changes. Mild soft tissue edema/contusion. No radiographic foreign body. Reading Location: [facility] Wrist X-Ray 07/03/25 07:11 IMPRESSION: No acute fracture or dislocations. Scattered mild degenerative changes. No acute soft tissue abnormalities. No radiographic foreign body. Reading Location: [facility] Discharge Plan Triage Chief Complaint: Fall ED [...] this is to occur return to the e mergency department or follow-up with your physician in the outpatient setting. You may shower but do not soak your sutures do not scrub at them. Use Tylenol for pain control you can take something every 6 hours for pain max dose of Tylenol in 24 hours 4000 mg. Your tetanus shot was updated today. Return with worsening symptoms or any other concerns Print Language: Anguillan Disposition Disposition: Home, Self Care What to do if you have Problems For any increased pain, shortness of breath, bleeding, nausea or vomiting, chestpain, or any unexpected problems, contact your Primary Care Provider. Call [facility] ([phone]) or report tothe closest Emergency Room. Call 911 if necessary. 07/03/25 0802 Cosigner Signature (if applicable): CC: Dr. Billy Braga DO ~ Signed [facility]09-05-2025 Radiology Diagnostic study note [facility] Imaging Services [address] [place] [address] Hand Min 3 Views MR#: [id number] Acct: [id number] Name: KANDI GOMEZ Rep #: [id number] : 1945 M 80 From: Barbara Palomino MD PCP: Dr. Billy Braga DO Status: REG ER Study:Hand Min 3 Views Date of Exam: 03/22 Exam# [id number] Ordering Dr: Damoin Ngo DO PROCEDURE: HAND MIN 3 VIEWS 07/03/2025 REASON FOR EXAM: FALL, HAND LAC BASE OF 5TH TECHNIQUE: Procedure Code: GINNA Modality: DX Procedure: HAND MIN 3 VIEWS Laterality: COMPARISON: None RAD/Hand Min 3 Views IMPRESSION: No acute fracture or dislocations. Scattered mild degenerative changes. Mild soft tissue edema/contusion. No radiographic foreign body. Reading Location: [facility] CC: Dr. Billy Barga DO; Dr. Mj Ngo DO ~ Cloth Bin Packer: Signed [facility]09-05-2025 Radiology Diagnostic study note [facility] Imaging Services [address] [place] [address] Wrist min 3 Views MR#: [id number] Acct: [id number] Name: KANDI GOMEZ Rep #: [id number] : 1945 M 80 From: Barbara Palomino MD PCP: Dr. Billy Braga DO Status: REG ER Study:Wrist min 3 Views Date of Exam: Exam# [id number] Ordering Dr: Damion Ngo DO PROCEDURE: WRIST MIN 3 VIEWS 07/03/2025 REASON FOR EXAM: FALL TECHNIQUE: Procedure Code: RADWR Modality: DX Procedure: WRIST MIN 3 VIEWS COMPARISON: None RAD/Wrist min 3 Views IMPRESSION: No acute fracture or dislocations. Scattered mild degenerative changes. No acute soft tissue abnormalities. No radiographic foreign body. Reading Location: [facility] CC: Dr. Billy Braga DO; Dr. Mj Ngo DO ~ Cloth Bin Packer: Signed [facility]09-05-2025 Radiology Diagnostic study note [facility] Imaging Services [address] [place], [place] [id number] Forearm 2 Views MR#: [id number] Acct: [id number] Name: KANDI GOMEZ Rep #: [id number] : 1945 M 80 From: Barbara Palomino MD PCP: Dr. Billy Braga DO Status: REG ER Study:Forearm 2 Views Date of Exam: 03/22 Exam# [id number] Ordering Dr: Damion Ngo DO PROCEDURE: FOREARM 2 VIEWS 07/03/2025 REASON FOR EXAM: FALL TECHNIQUE: Procedure Code: RADFA Modality: DX Procedure: FOREARM 2 VIEWS COMPARISON: None RAD/Forearm 2 Views IMPRESSION: No acute fracture or dislocations. Scattered mild degenerative changes. No acute soft tissue abnormalities. No radiographic foreign body. Reading Location: [facility] CC: Dr. Billy Braga DO; Dr. Mj Ngo DO ~ Cloth Bin Packer: Signed [facility]09-05-2025 Radiology Diagnostic study note [facility] Imaging Services [address] [place] [address] Spine Cervical without Contras MR#: [id number] Acct: [id number] Name: KANDI GOMEZ Rep #: [id number] : 1945 M 80 From: Barbara Palomino MD PCP: Dr. Billy Braga DO Status: REG ER Study:Spine Cervical without Contras Date of Exam: 07/03/25 Exam# [id number] Ordering Dr: Damion Ngo DO PROCEDURE: SPINE [...] the cervical spine with moderate central canal stenosismost prominent at C6-C7. Reading Location: [id number] CC: Dr. Billy Braga DO; Dr. Mj Nog DO ~ Cloth Bin Packer: Signed [facility]09-05-2025 Radiology Diagnostic study note [facility] Imaging Services [address] [place] [id number] Brain/Head without Contrast MR#: [id number] Acct: [id number] Name: KANDI GOMEZ Rep #: [id number] : 1945 M 80 From: Barbara Palomino MD PCP: Dr. Billy Braga DO Status: REG ER Study:Brain/Head without Contrast Date of Exa m: 07/03/25 Exam# [id number] Ordering Dr: Damion Ngo DO PROCEDURE: BRAIN/HEAD [...] IMPRESSION: No acute intracranial process. Reading Location: [id number] CC: Dr. Billy Braga DO; Dr. Mj Ngo DO ~ Cloth Bin Packer: Signed [facility]02-28-[address] Alford [facility] December 26, 2022 5:23pm Note Date/Time December 26, 2022 3:41pm [facility] Medical Records Department [address] [place] [address] Emergency Department Summary 12/26/22 MR#: [id number] Acct: [id number] Name: KANDI GOMEZ Rep #:[id number] : 1945 77 From: Sean Alford MD [...] normal stools. He is denying chest pain. [facility] Medical History (Updated 12/26/22 @ 17:21 [...] (Updated 03/26/18 @ 10:44 by Mendoza Shaffer, SR. OPERATIONS MANAGER, PROFESSOR OF ECONOMICS, BS) Mother Cancer Father Heart failure Surgical [...] 75.5 H Lymph % (Auto) 12.5 L Crosby % (Auto) 9.2 Eos % (Auto) 1.6 [...] rhythm with a rate of 69. Normal ND and QTc intervals. No ischemic changes. Interpreted [...] This was [facility] at [facility] he has not had an echocardiogram since then therefore he likely will need it. B. Amount and/or complexity of the data 1. CBC CMP troponin natruretic peptide read by me 2. Independent interpretation of test Telemetry: Sinus rhythm with a rate in the 60s. No ectopy to monitor for any 3. I discussed the patient with Dr. Cannon who is okay with the patient following [...] Braga DO [Primary Care Provider] - Sean Cannon MD [Med Staff - Active Staff] - 3-5 Days Disposition Disposition: Home, Self Care What to do if you have Problems For any increased pain, shortness of breath, bleeding, nausea or vomiting, chestpain, or any unexpected problems, contact your Primary Care Provider. Call [facility] ([phone]) or report to the closest Emergency Room. Call 911 if necessary. 12/26/22 1723 <Electronically signed by Sean Alford MD> Cosigner Signature (if applicable): CC: Dr. Billy Braga DO ~ Signed [facility] Work Phone: Consult note Author Romaine Bello [facility] Note Date/Time July 06, 2025 1:50pm [facility] Medical Records Department [address] [place] [address] Counseling Note - Pharmacy 07/06/25 1349 MR#: [id number] Acct: [id number] Name: GOMEZKANDI Michaela Rep #:[id number] : 1945 80 From: Romaine Bello PCP: Dr. Billy Braga DO Status:ADM LILY Y Location: [place] [address] [place] Med Reconciliation Pharmacy Service has performed discharge medication reconciliation for this patient. The patient's discharge medication list was reviewed for discrepancies and discrepancies were resolved. Medications at Discharge Home Medications metformin 500 mg tablet 500 mg PO DAILY DIABETES 04/26/18 metoprolol tartrate 25 mg tablet 25 mg PO BID BLOOD PRESSURE 02/21/18 cholecalciferol (vitamin D3) 50 mcg (2,000 unit) capsule (Vitamin D3) 2,000 unitPO DAILY 03/26/18 apixaban 5 mg tablet (Eliquis) 5 mg PO BID 07/03/25 aspirin 81 mg capsule 81 mg PO DAILY 07/03/25 atorvastatin 10 mg tablet (Lipitor) 10 mg PO QHS 07/03/25 furosemide 40 mg tablet (Lasix) 20 mg PO DAILY 07/03/25 levothyroxine 75 mcg tablet (Synthroid) 75 mcg PO DAILY 07/03/25 lisinopril 10 mg tablet 5 mg PO DAILY 07/03/25 tamsulosin 0.4 mg capsule 0.4 mg PO DAILY 07/03/25 amlodipine 2.5 mg tablet 2.5 mg PO DAILY 07/04/25 oxycodone 5 mg tablet 5 mg PO Q4H PRN PRN Pain Score 4-10 5 days #20 tabs 07/04/25 sennosides 8.6 mg-docusate sodium 50 mg tablet (Stimulant Laxative Plus) 2 tab PO BID PRN PRN Constipation #30 tabs 07/04/25 07/06/25 1350 <Electronically signed by Romaine ashton> Date _ Romaine Kirkland Signature (if applicable): Date CC: ~ Signed [facility] Work Phone: Discharge summary Author Mj Ngo [facility] Note Date/Time July 03, 2025 8:02am [facility] Medical Records Department [address] [place] [address] Emergency Department Summary 07/03/25 MR#: [id number] Acct: [id number] Name: KANDI GOMEZ Rep #:[id number] : 1945 80 From: Mj Ngo DO [...] of right hand pain and a cut. [facility] Medical History Tonsil and adenoid disease, chronic Hernia Coronary atherosclerosis due to severely calcified coronary lesion Home Medications ?Medication ?Instructions ?Recorded ?Last Taken ?Type metformin 500 mg tablet 500 mg PO BIDCM DIABETES 02/21/18 History 500 MG metoprolol tartrate 25 mg tablet 25 mg PO BID BLOOD ND ESSURE 02/21/18 02/21/18 History 25 MG cholecalciferol [...] following commands knew that he was at [facility] year is 2024 Skin: Warm, dry, [...] IMPRESSION: No acute intracranial process. 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 Possible fracture of the anterior osteophyte at C4. No other acute compression deformity, fracture, or subluxation. Moderate multilevel degenerative changes of the cervical spine with moderate central canal stenosis most prominent at C6-C7. Reading Location: [facility] Forearm X-Ray 07/03/25 07:11 IMPRESSION: No acute fracture or dislocations. Scattered mild degenerative changes. No acute soft tissue abnormalities. No radiographic foreign body. Reading Location: [facility] Hand X-Ray 07/03/25 07:11 IMPRESSION: No acute fracture or dislocations. Scattered mild degenerative changes. Mild soft tissue edema/contusion. No radiographic foreign body. Reading Location: [facility] Wrist X-Ray 07/03/25 07:11 IMPRESSION: No acute fracture or dislocations. Scattered mild degenerative changes. No acute soft tissue abnormalities. No radiographic foreign body. Reading Location: [facility] Discharge Plan Triage Chief Complaint: Fall ED [...] symptoms or any other concerns Print Language: Anguillan Disposition Disposition: Home, Self Care What to do if you have Problems For any increased pain, shortness of breath, bleeding, nausea or vomiting, chestpain, or any unexpected problems, contact your Primary Care Provider. Call [facility] ([phone]) or report to the closest Emergency Room. Call 911 if necessary. 07/03/25 0802 <Electronically signed by Mj Ngo DO> Cosigner Signature (if applicable): CC: Dr. Billy Braga DO ~ Signed [facility] Work Phone: Discharge summary Author Randy Gibson [facility] Note Date/Time July 04, 2025 4:12am [facility] Medical Records Department [address] [place] [address] Emergency Department Summary 07/04/25 MR#: [id number] Acct: [id number] Name: KANDI GOMEZ Rep #:[id number] : 1945 80 From: Randy Marroquin PCP: Dr. Billy Braga DO Status:REG ER Location: ED HPI History of Present Illness Chief Complaint: Fall [facility] Medical History Tonsil and adenoid disease, chronic Hernia Coronary atherosclerosis due to severely calcified coronary lesion Home Medications ?Medication ?Instructions ?Recorded ?Last Taken ?Type metformin 500 mg tablet 500 mg PO BIDCM DIABETES 02/21/18 History 500 MG metoprolol tartrate 25 mg tablet 25 mg PO BID BLOOD ND ESSURE 02/21/18 02/21/18 History 25 MG cholecalciferol [...] replacement) S/P CABG x 1 Social History household members: spouse Smoking Status: Never smoker alcohol intake: never substance use type: does not use EXAM Physical Exam Const Vital Signs: 07/04/25 01:17 07/04/25 01:20 07/04/25 02:55 Temperature 97.7 F L Temperature Source Oral Pulse Rate 73 68 Respiratory Rate 20 H 20 H Respiratory Effort Normal Non-Labored Respiratory Depth Normal Respiratory Pattern Normal Blood Pressure 142/72 H 114/65 Blood Pressure Mean 95 81 Pulse Ox 92 90 Oxygen Delivery Method Room Air Room Air Room Air [facility] MDM MDM Narrative Medical decision making narrative: HISTORY OF PRESENT ILLNESS: Chief complaint: Fall, left shoulder pain 80-year-old male history of CAD, aortic valve replacement on [facility] presents with fall. Notes he tripped going up 2 stairs. Denies head trauma or loss of consciousness. Denies syncope prior to fall. REVIEW OF SYSTEMS: Pertinent positives: Fall, left arm pain Pertinent negatives: As per HPI PHYSICAL EXAM: Nursing triage notes reviewed, Vital signs reviewed Primary Survey Airway: Intact Breathing: Bilateral breath sounds Circulation: Palpable bilateral femorals, Palpable bilateral radial, Palpable bilateral DP and Palpable bilateral PT Disability / Spine precautions GCS Score: Eye Openin Verbal Response: 5 Motor Response: 6 Secondary Survey Constitutional: Please see MDM Head: Atraumatic, Midface stable, NO jaw malocclusion, No Cephalohematoma, and No Lacerations noted Eye: Pupils equal round and reactive to light, Extraocular muscles intact and Noperiorbital ecchymosis or stepoff, no evidence of entrapment ENT: Oropharynx clear, no lacerations, no hemotympanum, no raccoon eyes or mcclain sign Cervical spine / Neck: No cervical spine bony tenderness, crepitance, or stepoffdeformity Trachea midline Lungs: Clear to auscultation, No asymmetric rise and No crepitus, no flail chest Cardiac: Regular rate and rhythm and No murmurs Abdomen: Soft, Nontender and No rebound Pelvis: Pelvis stable to compression : No evidence of genital injury Back: No midline bony tenderness to thoracic/lumbar/sacral spines Neuro: At baseline, has movement in all 4 extremities, appears to have sensationall 4 extremities, 2+ patellar reflexes bilaterally. Extremities: Obvious deformity to left upper extremity, TTP over proximal humerus. Left upper extremity otherwise warm and well-perfused. Psych: Normal affect Nursing triage notes reviewed, Vital signs reviewed MEDICAL DECISION MAKING: Chief Complaint: please see HPI External records reviewed: Reviewed prior imaging studies Factors affecting care: Social determinants of health: none History obtained from others: EMS Consults: Internal Medicine (Dr. Tillman), orthopedic surgery (Dr. Rivera) MDM Narrative: The patient was initially hemodynamically stable, afebrile and nontoxic- appearing. Primary secondary trauma surveys concerning for left arm trauma. Given patient's history of Eliquis I obtained imaging of the head and neck as well. I considered the following differential diagnosis: ICH, cervical spine injury, left arm injury I obtained broad lab and imaging work to further determine if the patient was suffering from a life-threatening etiology. Gave morphine for pain control ALL IMAGES (IF OBTAINED) HAVE BEEN PERSONALLY REVIEWED AND INTERPRETED BY MYSELF. X-ray of the left humerus/left shoulder was read reviewed personally myself showed evidence of a proximal humerus fracture. CT scan of the head and neck were negative for acute traumatic injury Labs with mild anemia otherwise no leukocytosis, kidney dysfunction, liver abnormalities. Discussed the case with orthopedic surgery on-call recommended no acute surgicalintervention for humerus fracture. Also discussed with hospitalist given the patient's advanced age, multiple falls and inability use both arms he would needhospitalization for pain control, PT OT and possible placement. The patient and/or family, caregivers express understanding. The patient and/orfamily, caregivers agrees with the plan. Shared decision making: I will have a discussion with the patient and or visitors regarding risk/benefits of further testing or admission. They will be made aware of of the risk/benefits inherent in this decision they will be given the opportunity to voice understanding. Total critical care time today provided was at least 0 minutes. This excludes separately billable procedures. Critical care time (if documented) is secondary to the patient having high probability of clinically significant/life threatening deterioration in the patient's condition which required my urgent intervention. Impression: 1. Fall 2. Left humerus fracture 3. History of chronic anticoagulation Dispo: Admit to [facility] This note was generated with PlayScape dictation software. It may contain incorrectwords, spelling, and punctuation that were not noted in review of the chart prior to signing. Lab Data Labs: Laboratory Results - last 24 hr 07/04/25 02:00 WBC 10.1 RBC 3.78 L Hgb 11.9 L Hct 37.2 L MCV 98.4 H MCH 31.5 MCHC 32.0 RDW Std Deviation 49.6 H RDW Coeff of Mukul 13.6 Plt Count 269 MPV 9.3 Immature Gran % (Auto) 0.900 Neut % (Auto) 79.6 H Lymph % (Auto) 6.9 L Crosby % (Auto) 9.9 Eos % (Auto) 2.2 Baso % (Auto) 0.5 Absolute Neuts (auto) 8.1 H Absolute Lymphs (auto) 0.70 L Nucleated RBC % 0 Sodium 140 Potassium 4.3 Chloride 106 Carbon Dioxide 23.6 Anion Gap 11 BUN 25 H Creatinine 1.17 Estim Creat Clear Calc 70.79 Est GFR (MDRD) Non-Af 64 BUN/Creatinine Ratio 21.7 H Glucose 195 H Calcium 9.1 Total Bilirubin 1.47 H AST 24 ALT 19 Alkaline Phosphatase 129 Total Protein 6.5 Albumin 3.8 Globulin 2.7 Albumin/Globulin Ratio 1.4 Radiography Diagnostic Testing: Clinical Impression(s) from Imaging Studies Brain CT 07/04/25 01:53 IMPRESSION: No intracerebral or extra axial hemorrhage. No acute cerebrovascular insult. If clinical symptoms persist, further evaluation with MRI may be considered as clinically warranted. Bilateral cerebral microvascular ischemic changes with mild brain involutional changes. stable Reading Location: [id number] Cervical Spine CT 07/04/25 01:53 IMPRESSION: No newly developed vertebral fractures, structural collapse or dislocation. Stable study findings as detailed. Reading Location: [id number] Discharge Plan Triage Chief Complaint: Fall ED Provider: Randy Gibson Dx/Rx/DC Orders Prescriptions: No Action metformin 500 MG tablet [...] Billy Braga DO [Primary Care Provider] - Print Language: Anguillan What to do if you have Problems For any increased pain, shortness of breath, bleeding, nausea or vomiting, chestpain, or any unexpected problems, contact your Primary Care Provider. Call [facility] ([phone]) or report to the closest Emergency Room. Call 911 if necessary. 07/04/25411 <Electronically signed by Randy Gibson DO> Cosigner Signature (if applicable): CC: Dr. Billy Braga DO ~ Signed [facility] Work Phone: Evaluation noteNo assessment information available [facility] Work Phone: Evaluation note* Diagnosis Onset Date Resolution Status Admit Date Left humeral fracture acute Sep 2024 4:14am [facility] Work Phone: History and physical note Author Amarilis Tillman [facility] Note Date/Time July 04, 2025 4:33am [facility] Medical Records Department [address] [place] [address] H&P Exam - Hospitalist 07/04/25412 MR#: [id number] Acct: [id number] Name: KANDI GOMEZ Rep #:[id number] : 1945 80 From: Amarilis Tillman MD PCP: Dr. Billy Braga, DO Status:REG ER Location: ED HPI - General General Date of Admission: 07/04/25 Date of Service: 07/04/25 Chief Complaint: Fall, LUE pain/shoulder pain. HPI Narrative The patient is a 80 y/o M w/ PMHx: PAF, Obesity, CAD s/p CABG x 1, Valvular Heart Disease s/p AVR, CKD stage II/III, Diabetes mellitus type II, HTN, HLD, Hypothyroidism, Chronic anemia, recent ED evaluation 07/03/2025 earlier in the morning following mechanical fall noting a been letting the dog out in the morning when he tripped over some boards landing on the concrete with no head trauma or loss of consciousness but he had a laceration to his right hand prompting ED evaluation at that time with laceration repaired with unremarkable plain film discharged to home now re-presenting to the [facility] ED on 07/04/2025 with another mechanical fall noting that he tripped going up 2 stairs landing on his left side with his hand outstretched with significant pain to the LUE/L shoulder following and debility following prompting ED return for evaluation. Workup in the ED included T97.7, heart rate 73, BP 142/72, respiratory rate 20, 92% on room air with most recent repeat vitals heart rate 68, BP 114/65, respiratory rate 20, 90% on room air, CBC with WC 10.1, hemoglobin 0.9, MCV 98.4, platelet 269 with left shift and lymphopenia,CMP with BUN/creatinine 25/1.17, GFR 64, glucose 195, T. bili 1.47 otherwise hepatic profile not marked appearing, CT brain with no acute intracranial findings with chronic stable findings, CT cervical spine with no newly developedvertebral fractures, structural collapse or dislocation, plain film of the left humerus and shoulder with an acute comminuted displaced fracture of the humeral surgical neck with overlying soft tissue edema and swelling. In the ED patient ministered morphine 4 mg IV x 1. Patient's upon arrival rating pain 10 out of 10 in severity. In the ED sling to the left upper extremity placed. ED discussed case with orthopedic surgeon Dr. Rivera who recommended sling with no acute surgical plans per ED report. [facility] Medical History (Updated 07/04/25 @ 04:[address] Amarilis Tillman MD) PAF (paroxysmal atrial fibrillation) Obesity Chronic anemia CAD (coronary artery disease) Hypothyroidism Diabetes mellitus type II, controlled HLD (hyperlipidemia) HTN (hypertension) Valvular heart disease Home Medications ?Medication ?Instructions ?Recorded ?Last Taken ?Type metformin 500 mg tablet 500 mg PO BIDCM DIABETES 02/21/18 History 500 MG metoprolol tartrate 25 mg tablet 25 mg PO BID BLOOD ND ESSURE 02/21/18 02/21/18 History 25 MG cholecalciferol [...] replacement) S/P CABG x 1 Social History household members: spouse Smoking Status: Never smoker alcohol intake: never substance use type: does not use ROS ROS Narrative Admission Review of Systems: CONSTITUTIONAL: No weight loss, fever, chills, + weakness or fatigue. HEENT: Eyes: No visual loss, blurred vision, double vision or yellow sclerae. Ears, Nose, Throat: No hearing loss, sneezing, congestion, runny nose or sore throat. SKIN: No rash or itching, lesions except + right hand with recent laceration repaired with dressing in place with no drainage, significant very stage ecchymoses and abrasion with recent fall with left-sided humeral neck fracture. CARDIOVASCULAR: No chest pain, chest pressure or chest discomfort, palpitations,edema, orthopnea, syncopal events. RESPIRATORY: No shortness of breath, cough or sputum, wheezing, hemoptysis. GASTROINTESTINAL: No anorexia, nausea, vomiting or diarrhea, abdominal pain, melena, BRBPR. GENITOURINARY: No dysuria, frequency, urgency or retention. NEUROLOGICAL: + Frequent falls. No headache, dizziness, syncope, paralysis, ataxia, numbness or tingling in the extremities, focal weakness, change in bowelor bladder control, seizure. MUSCULOSKELETAL: + muscle, back pain, joint pain or stiffness. HEMATOLOGIC: + Chronic anemia, easy bleeding/bruising. LYMPHATICS: No enlarged nodes. No history of splenectomy. PSYCHIATRIC: No history of depression or anxiety. ENDOCRINOLOGIC: No reports of sweating, cold or heat intolerance. No polyuria orpolydipsia. ALLERGIES: No history of asthma, hives, eczema or rhinitis. Vital Signs Vital Signs Vital Signs: 07/04/25 01:17 07/04/25 01:20 07/04/25 02:55 Temperature 97.7 F L Temperature Source Oral Pulse Rate 73 68 Respiratory Rate 20 H 20 H Respiratory Effort Normal Non-Labored Respiratory Depth Normal Respiratory Pattern Normal Blood Pressure 142/72 H 114/65 Blood Pressure Mean 95 81 Pulse Ox 92 90 Oxygen Delivery Method Room Air Room Air Room Air Weight Weight: 281 lb 1.43 oz Body Mass Index (BMI) 39.2 Physical Exam Narrative Physical Examination: General: Awake, alert, oriented x 3 and cooperative, laying in ED bed, fatigued appearing, extremely hard of hearing. Skin: Normal color, normal turgor, no icterus, no cyanosis. HEENT: AT/NC, EOMI, PERRLA, mildly dry MM, no carotid bruits or JVD noted. Lungs: Mildly diminished, greater bases, distant, no obvious distress, appropriate effort, no rales, ronchi or wheezing. Heart: Regular rate and rhythm; no gallop, rub audible, s/p AVR. Abdomen: Soft, obese, NTTP, distant BS, difficult to discern distention HSM given habitus. Extremities: No cyanosis, no clubbing, status post mechanical fall earlier in the day the day prior with right hand with complex suturing with dressing in place with no drainage, left upper extremity status post fall with humeral neck fracture, left upper extremity pulses intact, able to move fingers, sensation appropriate. Neurological: Patient awake, alert, oriented as noted although very hard of hearing of note, cognitive function intact; pupils equally reactive to light andaccommodation, cranial nerves grossly normal, moving all 4 extremities except expected limitation left upper extremity given fall with acute humeral neck fracture, strength accordingly moderately to severely globally decreased. Psychiatric: Affect appears fatigued, uncomfortable, no acute evidence of depressive or anxiety feelings. Results Lab / Micro Data 07/04/25 02:00 07/04/25 02:00 Labs: Laboratory Results - last 24 hr 07/04/25 02:00: WBC 10.1, RBC 3.78 L, Hgb 11.9 L, Hct 37.2 L, MCV 98.4 H, MCH 31.5, MCHC 32.0, RDW Std Deviation 49.6 H, RDW Coeff of Mukul 13.6, Plt Count 269,MPV 9.3, Immature Gran % (Auto) 0.900, Neut % (Auto) 79.6 H, Lymph % (Auto) 6.9 L, Crosby % (Auto) 9.9, Eos % (Auto) 2.2, Baso % (Auto) 0.5, Absolute Neuts (auto)8.1 H, Absolute Lymphs (auto) 0.70 L, Nucleated RBC % 0, Sodium 140, Potassium 4.3, Chloride 106, Carbon Dioxide 23.6, Anion Gap 11, BUN 25 H, Creatinine 1.17,Estim Creat Clear Calc 70.79, Est GFR (MDRD) Non-Af 64, BUN/Creatinine Ratio 21.7 H, Glucose 195 H, Calcium 9.1, Total Bilirubin 1.47 H, AST 24, ALT 19, Alkaline Phosphatase 129, Total Protein 6.5, Albumin 3.8, Globulin 2.7, Albumin/Globulin Ratio 1.4 Imaging Radiology Impression Brain CT 07/04/25 01:53 IMPRESSION: No intracerebral or extra axial hemorrhage. No acute cerebrovascular insult. If clinical symptoms persist, further evaluation with MRI may be considered as clinically warranted. Bilateral cerebral microvascular ischemic changes with mild brain involutional changes. stable Reading Location: [place] [id number] 07/04/25 01:53 IMPRESSION: No newly developed vertebral fractures, structural collapse or dislocation. Stable study findings as detailed. Reading Location: [place] [address] Humerus X-Ray 07/04/25 02:30 IMPRESSION: Acute comminuted displaced fractures of the humeral surgical neck. Overlying soft tissue edema and swelling. Reading Location: [place] [address] Shoulder X-Ray 07/04/25 02:30 IMPRESSION: Acute comminuted displaced fractures of the humeral surgical neck. Overlying soft tissue edema and swelling. Reading Location: [place] [id number] Assessment & Plan Assessment/Plan (1) Left humeral fracture: PLAN: Plan The patient is a 80 y/o M w/ PMHx: PAF, Obesity, CAD s/p CABG x 1, Valvular Heart Disease s/p AVR, CKD stage II/III, Diabetes mellitus type II, HTN, HLD, Hypothyroidism, Chronic anemia, recent ED evaluation 07/03/2025 earlier in the morning following mechanical fall noting a been letting the dog out in the morning when he tripped over some boards landing on the concrete with no head trauma or loss of consciousness but he had a laceration to his right hand prompting ED evaluation at that time with laceration repaired with unremarkable plain film discharged to home now re-presenting to the [facility] ED on 07/04/2025 with another mechanical fall noting that he tripped going up 2 stairs landing on his left side with his hand outstretched with significant pain to the LUE/L shoulder following and debility following prompting ED return for evaluation. #1. Mechanical fall with acute left comminuted displaced fractures of the humeral surgical neck with overlying soft tissue edema and swelling with significant debility, recurrent falls, adult failure to thrive: Will admit to medical surgical floor, maintain on fall precautions, will continue left upper extremity in the sling, nonweightbearing status, will continue orthopedic surgery consultation initiated per ED, will have oral and IV pain regimen as needed, PT/OT/case management consulted for discharge planning. #2. Chronic macrocytic anemia: Admission hemoglobin 11.9, MCV 98.4, baseline hemoglobin has vacillated primarily 12-13 range, will continue to trend CBC. #3. Chronic Kidney Disease Stage II/III, unclear subtype as has vacillated: Admission BUN/Cr 25/1.17, GFR 64 although previously has been consistent with stage III, unclear if these were acute presentations however, baseline renal function previously 1.4-1.8 but again unclear if these were acute presentation, repeat CMP in the a.m. to further elucidate patient's current renal function status. #4. Valvular heart disease: Status post aortic valve replacement at the same time as CABG x 1 at the [place], no recent echocardiogram noted in [employer] system. #5. CAD: Status post CABG x 1, will continue aspirin, statin, metoprolol, lisinopril home regimen. Holding eliquis temporarily. #6. Diabetes mellitus type II: Hold oral home regimen, ADA diet, accu checks w/ISS. #7. Hypertension: Continue home regimen including lisinopril, Lasix with hold parameters as needed, PRN hydralazine. #8. Hyperlipidemia: Will continue patient on statin therapy. #9. Hypothyroidism: Will continue patient on levothyroxine regimen. #10. Obesity: Weight loss and lifestyle changes encouraged. #11. PAF: Will continue patient home metoprolol, temporally holding Eliquis pending orthopedic surgery evaluation although at this time do not suspect any surgical intervention but just in case. #12. DVT prophylaxis: SCDs, will temporally hold Eliquis as noted. #13. CODE status: Patient ELI is his and living will is currently in place. Discussed CODE status at length including difference between FULL code, DNR-CCA and DNR-CC status. Following discussions about the differences in these status, requested Full Code status.. Charges/Coding Visit Charges Inpatient E&M: 72077 Init Hosp L3 07/04/25 0433 <Electronically signed by Amarilis Tillman MD> Cosigner Signature (if applicable): CC: Dr. Amarilis Tillman MD; Dr. Billy Braga, DO~ Signed [facility] Work Phone: Hospital Discharge instructionsAdditional Instructions Your [...] Return with worsening symptoms or any other concernsWWay[facility] Work Phone: Reason for referral (narrative)No reason for referral information availableWWayne HealthCare Main [facility] Work Phone: Chief Complaint and Reason for Visit Chief Complaint SOB Chief Complaint Admit Date fall July 03, 2025 6:45am Chief Complaint Admit Date fall July 03, 2025 6:45am fall July 04, 2025 4:13am FALL, HUMERAL NECK FRACTURE, ADULT FTT S eptember 2024 4:14am Reason for Visit Admit Date Left humeral fracture July 04 4:14am Chief Complaint Admit Date fall July 03, 2025 6:45am fall July 04, 2025 4:13am FALL, HUMERAL NECK FRACTURE, ADULT FTT S eptember 2024 4:14am FALL, HUMERAL NECK FRACTURE, ADULT FTT S eptember 2024 9:30am FALL, HUMERAL NECK FRACTURE, ADULT FTT S eptember 2024 7:29am FALL, HUMERAL NECK FRACTURE, ADULT FTT S eptember 2024 9:10am Family History Relationship Condition Age at Onset Recorded Date/T nahtaly mother Malignant neoplasm Unknown father Heart failure Unknown Advance Directives Advance Directive Response Recorded Date/ Time Living Will No December 26, 2 023 3:35pm Power of Stock Handler Floorperson No December 26, 2022 3:35pm Advance Directive Response Recorded Date/ Time Do you have a Healthcare Power of Stock Handler Floorperson? Yes July 03, 2025 6:50am Advance Directive Response Recorded Date/ Time Do you have a Healthcare Power of Stock Handler Floorperson? Yes July 03, 2025 6:50am Do you have a Healthcare Power of Stock Handler Floorperson? Yes July 04, 2025 1:19am Advance Directive Response Recorded Date/ Time Do you have a Healthcare Power of Stock Handler Floorperson? Yes July 03, 2025 6:50am Do you have a Healthcare Power of Stock Handler Floorperson? Yes July 04, 2025 5:40am Summary Purpose Additional Source Comments Care Teams [...] End: July 03, 2025 Dr. Mj Ngo , DO Emergency Provider Active Start: July 03, 2025 End: July 03, 2025 Team Status: Active Member Role/Relationship Status Dates Dr. Billy Braga DO Primary Care Provider Active Start: July 04, 2025 Dr. Randy Gibson DO Emergency Provider Active Start: July 04, 2025 Dr. Amarilis Tillman MD Attending Provider Active Start: July 04, 2025 Team Status: Active Member Role/Relationship Status Dates Dr. Billy Braga DO Primary Care Provider Active Start: July 04, 2025 Dr. Randy Gibson DO Emergency Provider Active Start: July 04, 2025 Dr. Amarilis Tillman MD Admit Provider Active St art: July 04, 2025 Dr. Amarilis Tillman MD Attending Provider Active Start: July 04, 2025 Team Status: Inactive Member Role/Relationship Status Dates Dr. Billy Braga DO Primary Care Provider Active Start: July 04, 2025 End: July 06, 2025 Dr. Randy Gibson DO Emergency Provider Active Start: July 04, 2025 End: July 06, 2025 Dr. Amarilis Tillman MD Admit Provider Active St art: July 04, 2025 End: July 06, 2025 Dr. Amarilis Tillman MD Other Provider Active St art: July 04, 2025 End: July 06, 2025 Umer Rivera MD Other Provider Active Start: July 04, 2025 End: July 06, 2025 Dr. Jerrell Esquivel DO Attending Provider Active Start: July 04, 2025 End: July 06, 2025 Dr. Tigre Figueroa MD Other Provider Active Star t: July 04, 2025 End: July 06, 2025 Team Status: Active Member Role/Relationship Status Dates Dr. Billy Braga DO Primary Care Provider Active Start: July 04, 2025 Dr. Randy Gibson DO Emergency Provider Active Start: July 04, 2025 Dr. Amarilis Tillman MD Admit Provider Active St art: July 04, 2025 Dr. Amarilis Tillman MD Other Provider Active St art: July 04, 2025 Umer Rivera MD Attending Provider Active St art: July 04, 2025 Umer Rivera MD Other Provider Active Start: July 04, 2025 Dr. Tigre Figueroa MD Other Provider Active Star t: July 04, 2025 Team Status: Active Member Role/Relationship Status Dates Dr. Billy Braga DO Primary Care Provider Active Start: July 05, 2025 Dr. Randy Gibson DO Emergency Provider Active Start: July 05, 2025 Dr. Amarilis Tillman MD Admit Provider Active St art: July 05, 2025 Dr. Amarilis Tillman MD Other Provider Active St art: July 05, 2025 Umer Rivera MD Other Provider Active Start: July 05, 2025 Dr. Tigre Figueroa MD Attending Provider Active Start: July 05, 2025 Dr. Tigre Figueroa MD Other Provider Active Star t: July 05, 2025 Team Status: Active Member Role/Relationship Status Dates Dr. Billy Braga DO Primary Care Provider Active Start: July 06, 2025 Dr. Randy Gibson DO Emergency Provider Active Start: July 06, 2025 Dr. Amarilis Tillman MD Admit Provider Active St art: July 06, 2025 Dr. Amarilis Tillman MD Other Provider Active St art: July 06, 2025 Umer Rivera MD Other Provider Active Start: July 06, 2025 Dr. Jerrell Esquivel DO Attending Provider Active Start: July 06, 2025 Dr. Jerrell Esquivel DO Other Provider Active Star t: July 06, 2025 Dr. Tigre Figueroa MD Other Provider Active Star t: July 06, 2025 Goals (unrecognized section and content) Goals may be documented in a n alternate sectionGoals may be documented in an alternate section (unrecognized sect ion and content) No Status Records Found INFORMATION SOURCE (unrecogn ized section and content) DATE CREATED AUTHOR 07/06/2025 [facility] FOR RECORDS PERTAINING TO PATIENTS WHO [...] BE BASED ON THE PRIMARY CLINICAL RECORDS. [employer] provides no warranty or guarantee of the accuracy or completeness of information in this document.
[2025-07-07] VITALS (9 sets, daily range): BP systolic 105–118; BP diastolic 51–56; PULSE 66–76; RESP 17–18; TEMP 36.6–37; O2SAT 77–95
[2025-07-07 07:40] LABS: Hematocrit 35.7 % (40-54); Hemoglobin 11.5 g/dL (13.0-16.5); Immature Granulocytes Count 0.060 X10^3/uL (0.0-0.0); Mean Corp Hgb Conc 32.2 g/dL (32-36); Mean Corpuscular Volume 97.8 fL (80-94); Mean Platelet Vol. 9.4 fl (6.2-12.0); NRBC Flagged by Analyzer 0 % (0-5); Platelet Count 312 K/mm3 (150-450); RBC Distribution Width CV 13.9 % (11.6-14.6); RBC Distribution Width SD 50.4 fl (35.1-43.9); Red Blood Count 3.65 M/mm3 (4.6-6.2); White Blood Count 9.1 K/mm3 (4.4-11.0)
[2025-07-07 07:51] LABS: AST(SGOT) 15 U/L (<=37); Alanine Aminotransfer ALT/SGPT 12 U/L (<=46); Albumin, Serum 3.2 g/dL (3.4-4.8); Alkaline Phosphatase 112 U/L (40-129); Anion Gap 11 (5-15); BUN 30 mg/dL (4-19); BUN/Creat Ratio 23.3 RATIO (10-20); Calcium,Total 9.1 mg/dL (7.6-11.0); Carbon Dioxide 25.1 mmol/L (21.0-32.0); Chloride 106 mmol/L (98-108); Estimated Creatinine Clearance 61.37 ml/min (50-250); Globulin 2.9 g/dL (2.2-4.2); Glucose 136 mg/dL (70-99); Magnesium 1.9 mg/dL (1.5-2.2); Potassium 4.3 mmol/L (3.3-5.1)
--- NOTE | 2025-07-07 08:10 | PCM.HP.STD ---
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 on 07/03/25 after he tripped and fell at home. He had a laceration of the R hand which was repaired and he was sent home. The next day he had another mechanical fall going up 2 steps and he landed on his left side. XRAY showed a comminuted fracture of the L humerus. He was seen by ortho who recommended a sling and OP F/U to discuss conservative management vs shoulder replacement. He was admitted to the hospitalist service. He was seen by PT and OP therapy was recommended but, he has no BR on the first floor of his home and he fell on the steps fracturing his L humerus. He was transferred to the acute inpt rehab unit at [facility] on 07/06/25 for 3 hours of therapy daily to restore function/independence at or near his level prior to the fall. Sutures in the right hand can come out on Sunday. All lab drawn this morning was personally reviewed. The white blood cell count is 9.1 with 75% neutrophils. Hemoglobin is stable at 11.5. MCV is elevated at 97.8 and the RDW is elevated at 50.4. Platelets are within normal limits. Sodium is 142 and the potassium is 4.3. The BUN is 30 with a creatinine 1.29 which is up from 1.16 on 07/06/2025. Total bilirubin is elevated at 1.87 but the remainder the LFTs are within normal limits. Magnesium is 1.9 and the phosphorus is 3.2. Calcium is within normal limits. Looking at previous labs that have been done his bili is always elevated. [facility] Medical History (Updated 07/07/25 @ 11:[address] Lois Oconnor DO) Chronic anticoagulation History of skin cancer History of cardioversion Primary osteoarthritis of right knee PAF (paroxysmal atrial fibrillation) Obesity Chronic anemia CAD (coronary artery disease) Hypothyroidism Diabetes mellitus type II, controlled HLD (hyperlipidemia) HTN (hypertension) Valvular heart disease Home Medications ?Medication ?Instructions ?Recorded ?Last Taken ?Type metformin 500 mg tablet 500 mg PO DAILY DIABETES 02/21/18 02/21/18 History 500 MG metoprolol tartrate 25 mg tablet 25 mg PO BID BLOOD PRESSURE 02/21/18 07/06/25 History cholecalciferol (vitamin D3) 50 2,000 unit PO DAILY supplement 03/26/18 Unknown History mcg (2,000 unit) capsule (Vitamin D3) apixaban 5 mg tablet (Eliquis) 5 mg PO BID prophylaxes 07/03/25 Unknown History aspirin 81 mg capsule 81 mg PO DAILY heart health 07/03/25 07/06/25 History atorvastatin 10 mg tablet (Lipitor) 10 mg PO QHS cholesterol 07/03/25 07/05/25 History furosemide 40 mg tablet (Lasix) 20 mg PO DAILY fluid 07/03/25 07/06/25 History levothyroxine 75 mcg tablet 75 mcg PO DAILY thyroid 07/03/25 07/06/25 History (Synthroid) lisinopril 10 mg tablet 5 mg PO DAILY blood pressure 07/03/25 07/06/25 History tamsulosin 0.4 mg capsule 0.4 mg PO DAILY retention 07/03/25 07/06/25 History amlodipine 2.5 mg tablet 2.5 mg PO DAILY blood pressure 07/04/25 07/06/25 History oxycodone 5 mg tablet 5 mg PO Q4H PRN Pain Score 1-10 07/06/25 07/05/25 History Allergy/AdvReac Type Severity Reaction Status Date / Time Penicillins Allergy Other Verified 07/03/25 06:45 Family History Mother Cancer Father Heart failure Surgical History (Updated 07/07/25 @ 10:[address] Lois Oconnor DO) History of bilateral cataract extraction History of tonsillectomy and adenoidectomy S/P AVR (aortic valve replacement) S/P CABG x 1 Social History (Updated 07/07/25 @ 10:[address] Lois Oconnor DO) household members: spouse housing: house Smoking Status: Former smoker how long ago did patient quit smokin years ago alcohol intake: never substance use type: does not use ROS Review of Systems ROS Unobtainable: Denies due to encephalopathy, due to endotracheal tube, due to mental condition or due to mental status Constitutional Constitutional: Reports daytime sleepiness; Denies anorexia, change in weight, chills, fatigue, fever(s), night sweats or weakness Eyes Eyes: Denies blurry vision, change in vision, eye pain or loss of vision ENT HEENT: Denies abnormal hearing, dysphagia, headache(s), hearing loss, nasal congestion or sore throat Cardiovascular Cardiovascular: Denies chest pain, dyspnea on exertion, edema, lightheadedness, orthopnea, palpitations, paroxysmal nocturnal dyspnea or syncope Respiratory/Chest Respiratory/Chest: Denies cough, dyspnea, shortness of breath at rest, shortness of breath with exertion or wheezing Gastrointestinal Gastrointestinal: Denies abdominal pain, constipation, diarrhea, dyspepsia, hematemesis, hematochezia, nausea or vomiting Genitourinary Genitourinary: Denies dysuria, hematuria, nocturia, urinary frequency, urinary hesitancy, urinary incontinence or urinary urgency Musculoskeletal Musculoskeletal: Denies back pain, joint pain, joint swelling or neck pain Neurologic Neurologic: Denies confusion, disequilibrium, dizziness, focal weakness, headache(s), paresthesias, seizures or tremor(s) Psychiatric Psychiatric: Denies anxiety, depression, homicidal ideation or suicidal ideation Endocrine Endocrinology: Denies change in body appearance, polydipsia or polyuria Hematologic/Lymphatic Hematologic/Lymphatic: Denies easy bleeding, easy bruising or lymphadenopathy Allergic/Immunologic Allergic/Immunologic: Denies rhinitis, eczemia or asthma Vital Signs Vital Signs Vital Signs: 07/06/25 15:51 07/06/25 16:13 07/06/25 17:39 Temperature 97.5 F L 97.5 F L Temperature Source Temporal Temporal Pulse Rate 60 60 Pulse Strength Respiratory Rate 18 18 Respiratory Effort Normal Non-Labored Respiratory Depth Normal Respiratory Pattern Normal Blood Pressure 114/59 L 114/59 L Blood Pressure Mean 77 77 Blood Pressure Source Monitor Monitor Blood Pressure Position Sitting Blood Pressure Location Right Arm Pulse Ox 97 97 Oxygen Delivery Method Room Air Room Air Room Air 07/06/25 20:20 07/06/25 21:05 07/06/25 21:17 Temperature Temperature Source Pulse Rate 74 74 74 Pulse Strength Respiratory Rate 16 Respiratory Effort Normal Non-Labored Respiratory Depth Normal Respiratory Pattern Normal Blood Pressure 120/59 L Blood Pressure Mean 79 Blood Pressure Source Monitor Blood Pressure Position Semi-Fowlers Blood Pressure Location Right Arm Pulse Ox 97 Oxygen Delivery Method Room Air 07/06/25 21:23 07/07/25 05:43 07/07/25 07:12 Temperature 98.6 F Temperature Source Temporal Pulse Rate 67 Pulse Strength Normal (2+) Respiratory Rate 17 Respiratory Effort Respiratory Depth Respiratory Pattern Blood Pressure 118/56 L Blood Pressure Mean 76 Blood Pressure Source Monitor Blood Pressure Position Supine Blood Pressure Location Right Arm Pulse Ox 95 90 Oxygen Delivery Method Room Air Room Air Weight Weight: 257 lb 11.526 oz Body Mass Index (BMI) 36.1 Physical Exam Const alert, oriented x3 and no apparent distress Constitutional Narrative: Sitting in the recliner at the bedside General Appearance: cooperative, comfortable and well kempt HEENT normocephalic, head/scalp atraumatic and oropharynx normal HEENT Narrative: Marked rhinophyma. Has bilateral hearing aids. Has both upper and lower dentures. Eyes PERRL, EOMs intact bilaterally, conjunctivae normal and no scleral icterus Eyes Narrative: No discharge from the eyes and no mattering of the eyelashes. Eyes are blue. Neck supple and No nodes General: trachea midline Chest Chest: symmetrical chest wall rise Resp normal respiratory effort, no use of accessory muscles and clear to auscultation bilaterally Resp Narrative: Breath sounds are mildly diminished throughout, possibly secondary to body habitus. Not tachypneic. Effort and Inspection: able to speak in complete sentences Cardio regular rate, regular rhythm, no murmurs, no rub and no gallops Cardio Narrative: S2 is widely split. Having some early beats. GI normal to inspection, nondistended, normoactive bowel sounds, soft to palpation and non-tender GI Narrative: No guarding with palpation. States he is having regular bowel movements. Abdomen is obese. no CVA tenderness Narrative: PVR x 1 is 103 Back/Spine no CVA tenderness Back/Spine Narrative: No pain with palpation or percussion over the thoracic or lumbar vertebrae Extremity no calf tenderness Extremity Narrative: Trace ankle edema bilaterally. Patrice wrap's are in place. General Extremity: Negative for clubbing or cyanosis Skin no rashes or lesions noted Skin Narrative: He has pronounced rhinophyma. Multiple areas of ecchymosis secondary to recent falls. The laceration of the R hand is sutured on 3 sides and is flap like. There is DC present but, no odor. the wound was heavily wrapped and there is maceration of the skin fold between the palm and the little finger on the palmar surface. It is open. There is some reddish discoloration of the skin flap and the surrounding area. Intact sensation. Multiple scabs on his legs. No evidence of cellulitis on the legs. Neuro oriented x3, CN's II-XII intact bilaterally, moves all extremities and no focal motor deficits Neuro Narrative: Having some numbness of the L ring finger and the little finger that started last night. Psych mental status grossly normal, thought process normal, cooperative, affect normal and speech normal Appearance: grossly normal, appropriate and well kempt Attitude: calm and engaged Activity / Motor Behavior: appropriate eye contact Mood & Affect: euthymic mood Results Lab / Micro Data 07/07/25 07:16 07/07/25 07:16 Labs: Laboratory Results - last 24 hr 07/06/25 17:01: POC Glucose 137 H 07/06/25 21:05: POC Glucose 154 H 07/07/25 06:14: POC Glucose 135 H 07/07/25 07:16: WBC 9.1, RBC 3.65 L, Hgb 11.5 L, Hct 35.7 L, MCV 97.8 H, MCH 31.5, MCHC 32.2, RDW Std Deviation 50.4 H, RDW Coeff of Mukul 13.9, Plt Count 312, MPV 9.4, Immature Gran % (Auto) 0.700, Neut % (Auto) 75.1 H, Lymph % (Auto) 8.8 L, [place] % (Auto) 11.8 H, Eos % (Auto) 3.0, Baso % (Auto) 0.6, Absolute Neuts (auto) 6.8, Absolute Lymphs (auto) 0.80 L, Nucleated RBC % 0, Sodium 142, Potassium 4.3, Chloride 106, Carbon Dioxide 25.1, Anion Gap 11, BUN 30 H, Creatinine 1.29 H, Estim Creat Clear Calc 61.37, Est GFR (MDRD) Non-Af 57 L, BUN/Creatinine Ratio 23.3 H, Glucose 136 H, Calcium 9.1, Phosphorus 3.2, Magnesium 1.9, Total Bilirubin 1.87 H, AST 15, ALT 12, Alkaline Phosphatase 112, Total Protein 6.1, Albumin 3.2 L, Globulin 2.9, Albumin/Globulin Ratio 1.1 Assessment & Plan Assessment/Plan (1) Debility: (2) Falls: (3) Left humeral fracture: QUALIFIERS: Encounter type: initial encounter Humerus Location: surgical neck Fracture type: closed Fracture morphology: 2-part Fracture alignment: displaced Qualified Code(s): S42.222A - 2-part displaced fracture of surgical neck of left humerus, initial encounter for closed fracture (4) Complicated laceration of hand: QUALIFIERS: Encounter type: subsequent encounter Laterality: right Qualified Code(s): S61.411D - Laceration without foreign body of right hand, subsequent encounter (5) Closed head injury without loss of consciousness: QUALIFIERS: Encounter type: subsequent encounter Qualified Code(s): S09.90XD - Unspecified injury of head, subsequent encounter (6) Cellulitis: QUALIFIERS: Site of cellulitis: extremity Site of cellulitis of extremity: upper extremity Laterality: right Qualified Code(s): L03.113 - Cellulitis of right upper limb (7) PAF (paroxysmal atrial fibrillation): PLAN: Last cardioversion was 1 month ago. (8) Chronic anticoagulation: PLAN: On Eliquis (9) Chronic anemia: PLAN: Macrocytic (10) Hyperbilirubinemia: (11) History of cardioversion: (12) CAD (coronary artery disease): QUALIFIERS: Coronary Disease-Associated Artery/Lesion type: [place] artery [place] vs. transplanted heart: [place] heart Associated angina: without angina Qualified Code(s): I25.10 - Atherosclerotic heart disease of [place] coronary artery without angina pectoris (13) S/P CABG x 1: (14) S/P AVR (aortic valve replacement): (15) HTN (hypertension): QUALIFIERS: Hypertension type: primary hypertension Qualified Code(s): I10 - Essential (primary) hypertension (16) HLD (hyperlipidemia): QUALIFIERS: Hyperlipidemia type: unspecified Qualified Code(s): E78.5 - Hyperlipidemia, unspecified (17) Diabetes mellitus type II, controlled: (18) Hypothyroidism: QUALIFIERS: Hypothyroidism type: unspecified Qualified Code(s): E03.9 - Hypothyroidism, unspecified (19) Obesity: QUALIFIERS: Obesity type: due to excess calories Obesity classification: adult class 2 (BMI 35 - 39.9) Serious obesity comorbidity presence: with serious comorbidity Body mass index: BMI 35.0-35.9 Qualified Code(s): E66.812 - Obesity, class 2; E66.01 - Morbid (severe) obesity due to excess calories; Z68.35 - Body mass index [BMI] 35.0-35.9, adult PLAN: Plan PLAN PT for gait stability OT for ADL's Analgesics as needed Bowel protocol Fall precautions Assess for Anxiety/Depression GI prophylaxis -not necessary at this time. Denies history of peptic ulcer disease and also denies epigastric pain, heartburn, nausea/vomiting. DVT prophylaxis -continue Eliquis 5 mg p.o. twice daily Follow up with PCP, Dr. Rivera following DC from Rehab AM lab including CMP, CBC, Mag and Phos-all personally reviewed HGBA1C, direct bili, retic panel, folate, B12, haptoglobin, vitamin D and LDH. Start Keflex 500 mg TID......states he is allergic to PCN. He had a shot of PCN as a kid and then passed out. No rash or SOB. Consult Dr. Hou for cellulitis and laceration of the R hand. Leave the hand lac open to air to dry the maceration out. NWB on the LUE and avoid pressure on the R hand......D/W therapy Schedule oxycodone 4 times daily for the next few days Wound culture of the drainage from the right hand and MRSA PCR of the drainage Vitamin C, zinc and Dio for wound healing. Recommend a DEXA as an OP. 1. Do you snore loudly? He says he does not snore. His has never said. 2. Do you often feel tired, fatigued or sleepy during the day? Yes 3. Has anyone ever observed you stop breathing during sleep? No 4. Do you have (or are you being treated for) HTN? Yes BMI 35.9 AGE 80 Neck circumference greater than 40 Gender male Total 6 RLS at night, does not feel rested when he awakens in the AM, falls asleep watching TV and reading a book. Nocturia (X3), hx of PAF. Charges/Coding Visit Charges Inpatient E&M: 57924 Init Hosp L2
[2025-07-07] MEDS: Cholecalciferol (VIT D3) 25 MCG TABLET (1,000 UNITS) 50 MCG PO (09:25)
[2025-07-07] MEDS: Senna/Docusate Sodium 1 Tablet 2 TABLET PO (09:26)
[2025-07-07] MEDS: APIXABAN 5 MG TABLET PO ×2 (09:26→21:18)
--- NOTE | 2025-07-07 09:51 | EX.PCM.CON.S ---
Assessment & Plan Assessment/Plan (1) Complicated laceration of hand: PLAN: Plan Right hand laceration repair appears cellulitic. - Agree with oral Keflex. - Keep incision dry and covered. - Hold off on repeat hand xray for now. No concerns for osteomyelitis at this time. WBC is WNL. - We will reassess the wound tomorrow. HPI Consult Data Date of Consult: 07/07/25 HPI Narrative HPI Narrative: KANDI GOMEZ, is a 80-year-old male with past medical history significant for CAD status post CABG on aspirin 81 mg daily, status post AVR, atrial fibrillation on Eliquis, insulin-dependent type 2 diabetes, hypothyroidism, hyperlipidemia, hypertension who had a mechanical fall on 07/03/2025 onto concrete floor. He denied head trauma or loss of consciousness. He presented to the ED for trauma workup the same day and was noted to have a right hand laceration which was repaired at bedside by ED staff. He then presented to the hospital the following day with complaint of left arm pain was noted to have left humerus fracture and orthopedics was also consulted. Patient was seen at bedside today at the request of Dr. Oconnor due to the right hand laceration appearing macerated and swollen. He was not on any antibiotics prior to his current admission. He denies fevers, chills, numbness, tingling, hand weakness. [facility] Medical History PAF (paroxysmal atrial fibrillation) Obesity Chronic anemia CAD (coronary artery disease) Hypothyroidism Diabetes mellitus type II, controlled HLD (hyperlipidemia) HTN (hypertension) Valvular heart disease Home Medications ?Medication ?Instructions ?Recorded ?Last Taken ?Type metformin 500 mg tablet 500 mg PO DAILY DIABETES 02/21/18 02/21/18 History 500 MG metoprolol tartrate 25 mg tablet 25 mg PO BID BLOOD PRESSURE 02/21/18 07/06/25 History cholecalciferol (vitamin D3) 50 2,000 unit PO DAILY supplement 03/26/18 Unknown History mcg (2,000 unit) capsule (Vitamin D3) apixaban 5 mg tablet (Eliquis) 5 mg PO BID prophylaxes 07/03/25 Unknown History aspirin 81 mg capsule 81 mg PO DAILY heart health 07/03/25 07/06/25 History atorvastatin 10 mg tablet (Lipitor) 10 mg PO QHS cholesterol 07/03/25 07/05/25 History furosemide 40 mg tablet (Lasix) 20 mg PO DAILY fluid 07/03/25 07/06/25 History levothyroxine 75 mcg tablet 75 mcg PO DAILY thyroid 07/03/25 07/06/25 History (Synthroid) lisinopril 10 mg tablet 5 mg PO DAILY blood pressure 07/03/25 07/06/25 History tamsulosin 0.4 mg capsule 0.4 mg PO DAILY retention 07/03/25 07/06/25 History amlodipine 2.5 mg tablet 2.5 mg PO DAILY blood pressure 07/04/25 07/06/25 History oxycodone 5 mg tablet 5 mg PO Q4H PRN Pain Score 1-10 07/06/25 07/05/25 History Allergy/AdvReac Type Severity Reaction Status Date / Time Penicillins Allergy Other Verified 07/03/25 06:45 Family History Mother Cancer Father Heart failure Surgical History History of tonsillectomy and adenoidectomy S/P AVR (aortic valve replacement) S/P CABG x 1 Social History household members: spouse housing: house Smoking Status: Former smoker how long ago did patient quit smokin years ago alcohol intake: never substance use type: does not use ROS Constitutional Constitutional: Reports systems reviewed and no addt'l complaints, except as documented and as per HPI Respiratory/Chest Respiratory/Chest: Reports systems reviewed and no addt'l complaints, except as documented Integumentary Integumentary: Reports as per HPI Neurologic Neurologic: Reports as per HPI Physical Exam Narrative Constitutional: Alert and oriented in no acute distress. Right upper extremity: Inspection: Distal laceration repair around the skin fold is macerated with surrounding erythema, edema Palpation: Edematous without fluctuance or active or expressible drainage. Appears cellulitic Motor: Moves MCP, PIP, DIP in all directions. No angulation noted. Sensation: Sensation intact to light touch Vascular: Good perfusion, finger is pink, capillary refill < 2 seconds . Lab / Micro Data 07/07/25 07:16 07/07/25 07:16 Labs: Laboratory Results - last 24 hr 07/06/25 17:01: POC Glucose 137 H 07/06/25 21:05: POC Glucose 154 H 07/07/25 06:14: POC Glucose 135 H 07/07/25 07:16: WBC 9.1, RBC 3.65 L, Hgb 11.5 L, Hct 35.7 L, MCV 97.8 H, MCH 31.5, MCHC 32.2, RDW Std Deviation 50.4 H, RDW Coeff of Mukul 13.9, Plt Count 312, MPV 9.4, Immature Gran % (Auto) 0.700, Neut % (Auto) 75.1 H, Lymph % (Auto) 8.8 L, [place] % (Auto) 11.8 H, Eos % (Auto) 3.0, Baso % (Auto) 0.6, Absolute Neuts (auto) 6.8, Absolute Lymphs (auto) 0.80 L, Nucleated RBC % 0, Sodium 142, Potassium 4.3, Chloride 106, Carbon Dioxide 25.1, Anion Gap 11, BUN 30 H, Creatinine 1.29 H, Estim Creat Clear Calc 61.37, Est GFR (MDRD) Non-Af 57 L, BUN/Creatinine Ratio 23.3 H, Glucose 136 H, Calcium 9.1, Phosphorus 3.2, Magnesium 1.9, Total Bilirubin 1.87 H, AST 15, ALT 12, Alkaline Phosphatase 112, Total Protein 6.1, Albumin 3.2 L, Globulin 2.9, Albumin/Globulin Ratio 1.1 Imaging 07/03 right hand xray reviewed myself. No signs of fracture of bone infection noted. Reviewed radiology report which was negative for pathology. Charges/Coding Visit Charges Office Visits / Consults: 41152 OV L2 New 15min
[2025-07-07 10:39] LABS: Immature Reticulocyte Fraction 19.70 % (3.00-15.90); Platelet Count 330 K/mm3 (150-450); Reticulocyte Count 1.83 % (0.5-1.5)
[2025-07-07 11:14] LABS: Bilirubin, Direct 0.95 mg/dL (0.00-0.30); LDH 164 U/L (87-241)
[2025-07-07 11:15] LABS: Vitamin D,25 Hydroxy 44.1 ng/mL (30-100)
[2025-07-07 11:38] LABS: Staph aureus DNA By PCR POSITIVE (Negative)
--- NOTE | 2025-07-07 13:10 | PCM.RU.PYE ---
Admission Information Primary Diagnosis:: Debility due to falls and fx of L humerus Status Changes from Prescreening?: No changes Identified Actual Problem List:: Infection, Falls, Skin Intergrity, Pain, ALteration in Cmfrt, Alteration in Sleep, Mobility Impaired, Self Care Deficit and Alteration-Leisure Activ. Potential Problem List:: DVT, Bleeding, Infection, UTI, Aspiration, Falls, Skin Integrity and Depression Risk of Complications DVT: MYA Hose and - (Eliquis) Bleeding: Monitor Lab Values, Nursing to Teach Precautions for anti-coagulation therapy., Wound, if applicable, to be assessed every shift. and Stroke patients assessed for lethargy or change in status. Infection: Clinical Staff to Monitor for S/S of infection: and S/S of infection include fever, redness, warmth, etc. Urinary Tract Infection: Monitor for frequency, burning, discomfort, or incontinence. and Nursing will obtain urine sample for urinalysis and C&S when ordered. Aspiration: Clinical staff will monitor for coughing, drooling, congestion., Speech will evaluate swallowing and dsyphasia. and Nursing will monitor patient swallowing during meals. Falls: Patient will be evaluated for Fall Precautions and Patient will be placed on Fall Precautions as indicated per protocol. Skin Breakdown: Nursing will assess skin daily using assessment tool. and Nursing will place on Skin Breakdown Precautions as indicated. Pain: Clinical staff will assess patient's pain level per protocol., Medications will be given, if needed, and the pain level reassessed. and Other methods: Massage, distraction, decrease stimulus, etc. used PRN. Plan of Care Patient requires physician specializing in physical medicine and rehab oversight to provide close medical supervision of rehab issues including: Pain Management, Sleep Problems, Bowel and Bladder, Medical and co-morbidity Management, DVT prophylaxis, Rehabilitation Leadership and Coordination of treatment team Patient needs Physical Therapy: For a minimum of 1 hour and At least 5 out of 7 days Patient needs Physical Therapy to improve:: Mobility, Strengthening, Transfers, Stretching, ROM, Endurance, Stairs, Gait and Balance Patient needs Occupational Therapy: For a minimum of 1 hour and At least 5 out of 7 days Patient needs Occupational Therapy to improve ADL's incl.: Eating, Grooming, Bathing, Dressing, Toileting, Toilet transfers, Community Reintegration, Higher functioning activities, Household tasks, Adaptive Equipment, Splinting and Other activities as determined Patient requires 24/ Rehabilitation Nursing for: Pain Issues, Identifying and preventing risk factors, Monitoring and reporting current medical conditions, Assisting with ambulation, transfer, and all ADL's, Teaching patients about disease process and medications, Family teaching, Providing safe environment, Bowel and Bladder Issues, Skin integrity and Medication Management Patient needs Airplane Electrical Repairer/ Case Management for: Discharge Planning, Arranging Home Equipment or Services and Family Interventions Patient needs Dietary and Nutrition Services for: Adequate Nutrition, Nutritional Supplements and Nutritional Education Goals Goals Patient will remain: free from falls Patient will perform eating at: MOD I level of assist. Patient will perform bed mobility at: MOD I level of assist. Patient will complete transfers from bed to chair at: MOD I level of assist. Patient will ambulate: - (500 feet on various surfaces at [place] to allow patient to return home/community. ) Patient will complete upper body dressing at: - (Supervision) Patient will complete lower body dressing at: - (Supervision using adaptive equipment as needed) Patient will complete toilet transfer at: - (Supervision) Patient will complete toileting at: - (Supervision) Patient will perform bathing at: - (Upper body bathing at minimal assistance and lower body bathing at supervision using adaptive equipment as needed) Patient will perform Tub/Shower transfer at: - (Supervision using DME as needed) Patient will complete grooming at: - (Supervision) Patient will complete home management skills at: - (Supervision) Patient will achieve: - (12 stairs with 1 handrail at standby assist to allow access to the full bathroom.) Patient will have pain level of: of 3 or less Patient's skin will: remain intact Patient will receive: adequate nutrition. Discharge Planning Pt Prognosis for Sig. Practical Improv. w/in Reasonable Time: Good Estimated Length of stay (days): 21 Anticipated D/C Destination: Home with Outpt Therapy Was Preadmission Assessment Accurate?: Yes
[2025-07-07 14:04] LABS: FOLATES,SERUM (FOLIC ACID) 16.80 ng/mL (4.60-34.80)
[2025-07-07] MEDS: Juven (unflavored) Packet 1 PACKET PO (16:01)
--- NOTE | 2025-07-07 23:23 | NURSING ---
cps to put overnight sp02 on pt at 2130, tech stated that pt sats were on the low side and set the alarm accordingly, and if the pt started beeping to apply 02 on the pt. pulse ox started beeping and pts sp02 was down to 77. staff call cps and let them know and 02 at 1l/m via n/c was applied
--- NOTE | 2025-07-08 00:13 | NURSING ---
2330 cps came to check on pt and reduced 02 down to 1/2 l/m
[2025-07-08 06:00] VITALS: BP 98/47; PULSE 75; RESP 16; TEMP 36.7; O2SAT 92; BMI 35.4
[2025-07-08] MEDS: Juven (unflavored) Packet 1 PACKET PO (07:39)
[2025-07-08] MEDS: Cholecalciferol (VIT D3) 25 MCG TABLET (1,000 UNITS) 50 MCG PO (07:39)
[2025-07-08] MEDS: Zinc Sulfate 50 mg zinc (220 mg) ORAL capsule PO (07:39)
[2025-07-08] MEDS: APIXABAN 5 MG TABLET PO ×2 (07:39→21:38)
[2025-07-08 07:40] VITALS: PULSE 75
[2025-07-08 08:12] VITALS: O2SAT 91
--- NOTE | 2025-07-08 14:48 | PN.SURG_ITS ---
Subjective Subjective Patient seen today with Dr. Hou and Marga wound RN and in therapies room while patient was using the incumbent bike. He does not endorse new pain, drainage, fever, chills. He has been having his wound open to air. Objective Data Objective Data Vital Signs: Vital Signs Temp Pulse Resp BP Pulse Ox O2 Del Method O2 Flow Rate 98.0 F 75 16 98/47 L 91 Room Air 0.5 07/08/25 06:00 07/08/25 07:40 07/08/25 06:00 07/08/25 06:00 07/08/25 08:12 07/08/25 08:12 07/07/25 23:30 FiO2 21 07/07/25 21:45 Oxygen Flow Rate (L/min) 0.5 Oxygen Delivery Method Room Air Weight: 254 lb 6.615 oz Body Mass Index (BMI) 35.4 Intake & Output: Intake and Output for Last 24 Hours 07/06/25 07/07/25 07/08/25 23:59 23:59 23:59 Intake Total 440 / 440 1370 / 1370 480 / 480 Output Total 150 / 150 1200 / 1200 800 / 800 Balance 290 / 290 170 / 170 -320 / -320 Lab / Micro Data 07/07/25 07:16 07/07/25 07:16 Labs: Laboratory Results - last 24 hr 07/07/25 12:40: Haptoglobin 241 07/07/25 16:04: POC Glucose 141 H 07/07/25 21:16: POC Glucose 140 H 07/08/25 06:19: POC Glucose 139 H 07/08/25 12:00: POC Glucose 127 H Physical Exam Narrative Afebrile/Vitals are WNL. In no acute distress Right upper extremity Inspection: Incision open to air sutures are intact. Appears edematous slightly on the palmar portion but no induration or erythema noted. There is improved maceration around the skin fold. Palpation: No increased warmth, no significant tenderness to palpation. No active or expressible drainage. Motor: No axial loading pain, flexes and extends all MCP, PIP, DIP easily without difficulty. Sensation: Intact to light touch Vascular: Well-perfused, pink, capillary refill less than 2 seconds. Assessment & Plan Assessment/Plan (1) Complicated laceration of hand: QUALIFIERS: Encounter type: subsequent encounter Laterality: r ight Qualified Code(s): S61.411D - Laceration without foreign body of right hand, subsequent encounter PLAN: Plan Does not appear cellulitic anymore. Continue current wound care regimen. - Wound PCR positive for staph aureus. - Recommend continuing oral Keflex for total of 7 days. - OK to discharge plan from Plastic standpoint. - Dr. Hou will follow up with patient in wound center on 07/20 for hand suture removal if patient is discharged but otherwise we will continue to follow while he's here. Charges/Coding Visit Charges Office Visits / Consults: [id number] OV L2 Est 10min
[2025-07-08 17:31] VITALS: BP 98/63; PULSE 67; RESP 17; TEMP 36; O2SAT 94
[2025-07-08 21:30] VITALS: BP 109/57; PULSE 66; PULSE 67; RESP 17; O2SAT 94
[2025-07-08 21:40] VITALS: BP 109/57; PULSE 66
[2025-07-09] VITALS (7 sets, daily range): BP systolic 83–118; BP diastolic 46–61; PULSE 57–73; RESP 16; TEMP 36.6–37.1; O2SAT 91–99
--- NOTE | 2025-07-09 07:53 | PN_ITS ---
Subjective Subjective Day #3 Keflex Afebrile VSS -blood pressure over the past 24 hours has ranged from 98/47 to 113/61. Heart rate is within normal limits. Nursing tells me that the BP is better when done manually than done with the dynamap. Maintaining appropriate oxygen saturation on RA Oral intake - FOOD good FLUIDS good The blood sugar record was reviewed and blood sugars are under excellent control. Postvoid residuals x 3 are all less than 200. Discussed with nursing - no problems that need addressed Reviewed the THERAPY notes Medication list reviewed. Total bilirubin was 1.87 and the direct bilirubin was elevated at 0.95. Transaminases are normal and the alkaline phosphatase is also normal. LDH is normal and so is the haptoglobin. Folate, TSH and vitamin D are all within normal limits. D/W Dr. Hou. The R hand is looking better. Miky tells me that he slept with the oxygen last night and when he awake this morning he felt rested and ready to get up. He denies shortness of breath, chest pain, lightheadedness, cephalgia, nausea/vomiting/abdominal pain, dysuria and calf pain. Has been in negative fluid balance for the past couple days. Amlodipine was held today due to low blood pressure. Objective Data Objective Data Vital Signs: Vital Signs Temp Pulse Resp BP Pulse Ox O2 Del Method O2 Flow Rate 98.8 F 73 16 113/61 91 Room Air 0.5 07/09/25 05:57 07/09/25 05:57 07/09/25 05:57 07/09/25 05:57 07/09/25 05:57 07/09/25 05:57 07/07/25 23:30 FiO2 21 07/07/25 21:45 Oxygen Flow Rate (L/min) 0.5 Oxygen Delivery Method Room Air Weight: 254 lb 6.615 oz Body Mass Index (BMI) 35.4 Intake & Output: Intake and Output for Last 24 Hours 07/07/25 07/08/25 07/09/25 23:59 23:59 23:59 Intake Total 1370 / 1370 1580 / 1580 160 / 160 Output Total 1200 / 1200 1750 / 1750 800 / 800 Balance 170 / 170 -170 / -170 -640 / -640 Lab / Micro Data 07/07/25 07:16 07/07/25 07:16 Labs: Laboratory Results - last 24 hr 07/08/25 12:00: POC Glucose 127 H 07/08/25 16:38: POC Glucose 131 H 07/08/25 21:25: POC Glucose 140 H 07/09/25 06:25: POC Glucose 135 H Physical Exam Const alert, oriented x3 and no apparent distress Constitutional Narrative: Sitting in the recliner at the bedside General Appearance: cooperative HEENT Mouth: dry mucous membranes Resp normal respiratory effort and clear to auscultation bilaterally Effort and Inspection: Negative for tachypneic or respiratory distress Cardio regular rate, no murmurs and no gallops Cardio Narrative: No ectopy GI normal to inspection, nondistended, normoactive bowel sounds, soft to palpation and non-tender Extremity no calf tenderness Extremity Narrative: No significant swelling of the left hand. Please see plastic surgery dictation from today for description of the wound. General Extremity: Negative for edema Assessment & Plan Assessment/Plan (1) Debility: (2) Falls: (3) Left humeral fracture: QUALIFIERS: Encounter type: initial encounter Fracture alignment: displaced Fracture morphology: 2-part Fracture type: closed Humerus Location: surgical neck Qualified Code(s): S42.222A - 2-part displaced fracture of surgical neck of left humerus, initial encounter for closed fracture (4) Complicated laceration of hand: QUALIFIERS: Encounter type: subsequent encounter Laterality: r ight Qualified Code(s): S61.411D - Laceration without foreign body of right hand, subsequent encounter (5) Closed head injury without loss of consciousness: QUALIFIERS: Encounter type: subsequent encounter Qualified Code(s): S09.90XD - Unspecified injury of head, subsequent encounter (6) Cellulitis: QUALIFIERS: Laterality: right Site of cellulitis: extremity Site of cellulitis of extremity: upper extremity Qualified Code(s): L03.113 - Cellulitis of right upper limb PLAN: Right palm due to methicillin sensitive Staph aureus. 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 (11) HTN (hypertension): QUALIFIERS: Hypertension type: primary hypertension Qualified Code(s): I10 - Essential (primary) hypertension (12) Diabetes mellitus type II, controlled: PLAN: Excellent control with a hemoglobin A1c of 6.8. (13) Obesity: QUALIFIERS: Body mass index: BMI 35.0-35.9 Obesity classification: adult class 2 (BMI 35 - 39.9) Obesity type: due to excess calories Serious obesity comorbidity presence: with serious comorbidity Q ualified Code(s): E66.812 - Obesity, class 2; E66.01 - Morbid (severe) obesity due to excess calories; Z68.35 - Body mass index [BMI] 35.0-35.9, adult PLAN: Plan 1. Continue therapy 2. Continue oxygen supplementation at 2 L/min anytime he is sleeping. Order placed for a sleep study going forward. 3. Continue to hold amlodipine. Hold lisinopril if the systolic is less than 110 4. Hold Lasix for Sunday and Sunday and restart on Sunday 5. BMP and CBC on Sunday 6. Continue Keflex for total of 7 days. Wound culture grew Staph aureus which was methicillin sensitive.
[2025-07-09] MEDS: Juven (unflavored) Packet 1 PACKET PO (07:54)
[2025-07-09] MEDS: APIXABAN 5 MG TABLET PO ×2 (07:56→21:36)
[2025-07-09] MEDS: Cholecalciferol (VIT D3) 25 MCG TABLET (1,000 UNITS) 50 MCG PO (07:57)
[2025-07-09] MEDS: Zinc Sulfate 50 mg zinc (220 mg) ORAL capsule PO (07:58)
--- NOTE | 2025-07-09 12:43 | PN.SURG_ITS ---
Subjective Subjective Patient seen today with Dr. Hou and Dr. Oconnor at patient bedside. He was sitting up in his chair conversing with staff. He does not endorse new pain, drainage, fever, chills. He has been having his wound open to air. Objective Data Objective Data Vital Signs: Vital Signs Temp Pulse Resp BP Pulse Ox O2 Del Method O2 Flow Rate 98.8 F 63 16 86/48 L 92 Room Air 0.5 07/09/25 05:57 07/09/25 09:27 07/09/25 05:57 07/09/25 09:27 07/09/25 08:12 07/09/25 08:12 07/07/25 23:30 FiO2 21 07/07/25 21:45 Oxygen Flow Rate (L/min) 0.5 Oxygen Delivery Method Room Air Weight: 254 lb 6.615 oz Body Mass Index (BMI) 35.4 Intake & Output: Intake and Output for Last 24 Hours 07/07/25 07/08/25 07/09/25 23:59 23:59 23:59 Intake Total 1370 / 1370 1580 / 1580 400 / 400 Output Total 1200 / 1200 1750 / 1750 1150 / 1150 Balance 170 / 170 -170 / -170 -750 / -750 Lab / Micro Data Attestation: I reviewed the patient's lab results. 07/07/25 07:16 07/07/25 07:16 Labs: Laboratory Results - last 24 hr 07/08/25 16:38: POC Glucose 131 H 07/08/25 21:25: POC Glucose 140 H 07/09/25 06:25: POC Glucose 135 H Micro: Microbiology 07/07/25 11:44 Wound - Finger Gram Stain - Final 07/07/25 11:44 Wound - Finger Wound Culture - Preliminary Staphylococcus species Physical Exam Narrative Afebrile/Vitals are WNL. In no acute distress Right upper extremity Inspection: Incision open to air sutures are intact. Appears edematous slightly on the palmar portion but no induration or erythema noted. There is improved maceration around the skin fold. Palpation: No increased warmth, no significant tenderness to palpation. No active or expressible drainage. Motor: No axial loading pain, flexes and extends all MCP, PIP, DIP easily without difficulty. Sensation: Intact to light touch Vascular: Well-perfused, pink, capillary refill less than 2 seconds. Assessment & Plan Assessment/Plan (1) Complicated laceration of hand: QUALIFIERS: Encounter type: subsequent encounter Laterality: r ight Qualified Code(s): S61.411D - Laceration without foreign body of right hand, subsequent encounter PLAN: Plan Does not appear cellulitic anymore. Continue current wound care regimen. - Wound PCR positive for staph aureus. - Recommend continuing oral Keflex for total of 7 days. - Dial soap and water soaks twice daily with dry dressing over the incisional area. - OK to discharge plan from Plastic standpoint. - Dr. Hou will follow up with patient in wound center on 07/20 for hand suture removal if patient is discharged but otherwise we will continue to follow while he's here. Charges/Coding Visit Charges Office Visits / Consults: [id number] OV L2 Est 10min
--- NOTE | 2025-07-09 13:24 | CASEMGMT ---
Social Work IDT met with patient and for Team meeting. Discussed patient's progress in PT/OT/SN/MD. Educated to Medicare approval of 12 days with EDC 07/18, but Dr is recommending a sleep study, and DC date will be determined once sleep study is scheduled - preferably 07/17. Nursing to coordinate. SW to coordinate overnight O2 at DC. present this date for therapy session. Pt will DC home with . Educated to HHC vs OP therapy and offered to coordinate DME, if needed. SW will continue to follow for DC planning. Leanne Hernandez AIRPORT LOCATION MANAGER SHOVEL LOADER OPERATOR
[2025-07-10 06:00] VITALS: BP 116/62; PULSE 80; RESP 16; TEMP 36.1
[2025-07-10] MEDS: APIXABAN 5 MG TABLET PO ×2 (08:52→21:12)
[2025-07-10 08:53] VITALS: BP 110/60; PULSE 80
[2025-07-10] MEDS: Cholecalciferol (VIT D3) 25 MCG TABLET (1,000 UNITS) 50 MCG PO (08:54)
[2025-07-10] MEDS: Zinc Sulfate 50 mg zinc (220 mg) ORAL capsule PO (08:54)
[2025-07-10] MEDS: Senna/Docusate Sodium 1 Tablet 2 TABLET PO (08:54)
[2025-07-10] MEDS: Juven (unflavored) Packet 1 PACKET PO ×2 (08:55→16:55)
[2025-07-10 11:00] VITALS: BP 110/50; PULSE 77
--- NOTE | 2025-07-10 12:42 | PN.SURG_ITS ---
Subjective Subjective Patient seen today with Dr. Hou at patient bedside. He was sitting up in his chair conversing with staff. He does not endorse new pain, drainage, fever, chills. Wound was covered. Objective Data Objective Data Vital Signs: Vital Signs Temp Pulse Resp BP Pulse Ox O2 Del Method O2 Flow Rate 97.0 F L 80 16 110/60 99 Nasal Cannula 2 07/10/25 06:00 07/10/25 08:53 07/10/25 06:00 07/10/25 08:53 07/09/25 21:35 07/10/25 07:25 07/10/25 07:25 FiO2 21 07/07/25 21:45 Oxygen Flow Rate (L/min) 2 Oxygen Delivery Method Nasal Cannula Weight: 254 lb 6.615 oz Body Mass Index (BMI) 35.4 Intake & Output: Intake and Output for Last 24 Hours 07/08/25 07/09/25 07/10/25 23:59 23:59 23:59 Intake Total 1580 / 1580 1780 / 1780 590 / 590 Output Total 1750 / 1750 1900 / 1900 1300 / 1300 Balance -170 / -170 -120 / -120 -710 / -710 Lab / Micro Data Attestation: I reviewed the patient's lab results. 07/07/25 07:16 07/07/25 07:16 Labs: Laboratory Results - last 24 hr 07/08/25 16:38: POC Glucose 131 H 07/08/25 21:25: POC Glucose 140 H 07/09/25 06:25: POC Glucose 135 H Micro: Microbiology 07/07/25 11:44 Wound - Finger Gram Stain - Final 07/07/25 11:44 Wound - Finger Wound Culture - Preliminary Staphylococcus aureus Coag Negative Staph Physical Exam Narrative Afebrile/Vitals are WNL. In no acute distress Right upper extremity Inspection: sutures are intact. Appears edematous slightly on the palmar portion but no induration or erythema noted. There is improved maceration around the skin fold. Palpation: No increased warmth, no significant tenderness to palpation. No active or expressible drainage. Motor: No axial loading pain, flexes and extends all MCP, PIP, DIP easily without difficulty. Sensation: Intact to light touch Vascular: Well-perfused, pink, capillary refill less than 2 seconds. Assessment & Plan Assessment/Plan (1) Complicated laceration of hand: QUALIFIERS: Encounter type: subsequent encounter Laterality: r ight Qualified Code(s): S61.411D - Laceration without foreign body of right hand, subsequent encounter PLAN: Plan Does not appear cellulitic anymore. Continue current wound care regimen. - Wound PCR positive for staph aureus. - Recommend continuing oral Keflex for total of 7 days. - Dial soap and water soaks twice daily with dry dressing over the incisional area. - OK to discharge plan from Plastic standpoint. - Dr. Hou will follow up with patient in wound center on 07/20 for hand suture removal if patient is discharged but otherwise we will continue to follow while he's here. Charges/Coding Visit Charges Office Visits / Consults: [id number] OV L2 Est 10min
[2025-07-10 17:25] VITALS: BP 102/50; PULSE 71; RESP 16; TEMP 36.8; O2SAT 91
[2025-07-10 21:20] VITALS: BP 102/58; PULSE 67
[2025-07-11] VITALS: PULSE 76; RESP 16; O2SAT 97
[2025-07-11 05:57] VITALS: BP 112/58; PULSE 74; RESP 17; TEMP 36.6; O2SAT 97
[2025-07-11] MEDS: Cholecalciferol (VIT D3) 25 MCG TABLET (1,000 UNITS) 50 MCG PO (07:41)
[2025-07-11] MEDS: Zinc Sulfate 50 mg zinc (220 mg) ORAL capsule PO (07:43)
[2025-07-11] MEDS: Senna/Docusate Sodium 1 Tablet 2 TABLET PO ×2 (07:43→21:12)
[2025-07-11] MEDS: APIXABAN 5 MG TABLET PO ×2 (07:43→21:12)
[2025-07-11] MEDS: Juven (unflavored) Packet 1 PACKET PO ×2 (07:43→17:17)
[2025-07-11 07:54] VITALS: BP 90/48
[2025-07-11 10:29] VITALS: BP 100/48; PULSE 66
[2025-07-11 16:23] VITALS: BP 110/55; PULSE 60; RESP 16; TEMP 36.4; O2SAT 96
[2025-07-11 21:11] VITALS: BP 114/60; PULSE 64
[2025-07-12] VITALS (8 sets, daily range): BP systolic 112–125; BP diastolic 51–60; PULSE 55–60; RESP 16–18; TEMP 35.9–37; O2SAT 96–99
[2025-07-12] MEDS: Zinc Sulfate 50 mg zinc (220 mg) ORAL capsule PO (08:10)
[2025-07-12] MEDS: Cholecalciferol (VIT D3) 25 MCG TABLET (1,000 UNITS) 50 MCG PO (08:10)
[2025-07-12] MEDS: Juven (unflavored) Packet 1 PACKET PO ×2 (08:10→16:02)
[2025-07-12] MEDS: Senna/Docusate Sodium 1 Tablet 2 TABLET PO ×2 (08:11→21:10)
[2025-07-12] MEDS: APIXABAN 5 MG TABLET PO ×2 (08:12→21:08)
[2025-07-13] VITALS (9 sets, daily range): BP systolic 81–124; BP diastolic 44–56; PULSE 56–70; RESP 16; TEMP 36.9–37; O2SAT 93–98; BMI 36.0
--- NOTE | 2025-07-13 03:29 | NURSING ---
Soaked right hand in warm water with dial soap. Soaked hand for approximately half hour. Pt. tolerated hand being soaked well. Air dried and sterile dressing applied. Dated and timed.
[2025-07-13] MEDS: Zinc Sulfate 50 mg zinc (220 mg) ORAL capsule PO (07:39)
[2025-07-13] MEDS: APIXABAN 5 MG TABLET PO ×2 (07:39→20:41)
[2025-07-13] MEDS: Cholecalciferol (VIT D3) 25 MCG TABLET (1,000 UNITS) 50 MCG PO (07:40)
[2025-07-13] MEDS: Senna/Docusate Sodium 1 Tablet 2 TABLET PO ×2 (07:40→20:41)
--- NOTE | 2025-07-13 08:16 | PCM.PROGNOTE ---
Subjective Subjective Afebrile VSS -heart rate over the weekend ranged from 56-60. Vital signs are stable. Maintaining appropriate oxygen saturation on RA while awake and maintaining appropriate oxygen sat while sleeping on 2 L/min of nasal O2. Oral intake - FOOD good Discussed with nursing - no problems that need addressed Reviewed the THERAPY notes Medication list reviewed. Miky is complaining of some left shoulder pain however, he feel his pain is adequately controlled. He denies chest pain, cough, shortness of breath, lightheadedness, nausea/vomiting/abdominal pain, dysuria and calf tenderness. He had no questions today. All lab drawn this morning was personally reviewed. The white blood cell count is normal at 9.5. Hemoglobin is 10.7 which is down from 11.5 on 07/07/2025. Platelets are within normal limits. Sodium is 140 and the potassium today is 5.2? The BUN is 56 (from 30 on 07/07/2025) and the creatinine is 1.4 which is up from 1.29 at admission to rehab. Magnesium is 2.2. BNP is 519. Objective Data Objective Data Vital Signs: Vital Signs Temp Pulse Resp BP Pulse Ox O2 Del Method O2 Flow Rate 98.4 F 59 L 16 101/49 L 93 Room Air 2 07/13/25 06:00 07/13/25 07:44 07/13/25 06:00 07/13/25 07:44 07/13/25 06:00 07/13/25 06:00 07/13/25 01:04 FiO2 21 07/07/25 21:45 Oxygen Flow Rate (L/min) 2 Oxygen Delivery Method Room Air Weight: 254 lb 6.615 oz Body Mass Index (BMI) 35.4 Intake & Output: Intake and Output for Last 24 Hours 07/11/25 07/12/25 07/13/25 23:59 23:59 23:59 Intake Total 1964 / 1964 1025 / 1025 840 / 840 Output Total 1875 / 1875 2450 / 2450 475 / 475 Balance 90 / 90 -1425 / -1425 365 / 365 Lab / Micro Data 07/13/25 09:40 07/13/25 09:40 Micro: Microbiology 07/12/25 18:53 Stool Stool Occult Blood (AMARJIT) - Final Occult Blood Positive 07/07/25 11:44 Wound - Finger Gram Stain - Final 07/07/25 11:44 Wound - Finger Wound Culture - Final Staphylococcus aureus Coag Negative Staph Physical Exam Const alert, oriented x3 and no apparent distress General Appearance: cooperative Resp normal respiratory effort and clear to auscultation bilaterally Effort and Inspection: Negative for tachypneic Cardio regular rate, regular rhythm and no gallops Cardio Narrative: No ectopy GI normal to inspection, nondistended, normoactive bowel sounds, soft to palpation and non-tender GI Narrative: No guarding with palpation Extremity no calf tenderness Extremity Narrative: mild ankle edema.....controlled with compression. Skin General Skin Exam: no breakdown Rashes: no rashes Psych cooperative and affect normal Psych Narrative: Sleeping well at night and has good appetite. Making good eye contact with people speaking with him. Appearance: appropriate Attitude: No agitated Mood & Affect: Negative for depressed, anxious or flat affect Thought Content: No suicidality and No hallucination(s) Assessment & Plan Assessment/Plan (1) Debility: (2) Falls: (3) Left humeral fracture: QUALIFIERS: Encounter type: initial encounter Humerus Location: surgical neck Fracture type: closed Fracture morphology: 2-part Fracture alignment: displaced Qualified Code(s): S42.222A - 2-part displaced fracture of surgical neck of left humerus, initial encounter for closed fracture (4) Complicated laceration of hand: QUALIFIERS: Encounter type: subsequent encounter Laterality: right Qualified Code(s): S61.411D - Laceration without foreign body of right hand, subsequent encounter (5) Closed head injury without loss of consciousness: QUALIFIERS: Encounter type: subsequent encounter Qualified Code(s): S09.90XD - Unspecified injury of head, subsequent encounter (6) Cellulitis: QUALIFIERS: Site of cellulitis: extremity Site of cellulitis of extremity: upper extremity Laterality: right Qualified Code(s): L03.113 - Cellulitis of right upper limb (7) PAF (paroxysmal atrial fibrillation): (8) Chronic anticoagulation: (9) HTN (hypertension): QUALIFIERS: Hypertension type: primary hypertension Qualified Code(s): I10 - Essential (primary) hypertension (10) Diabetes mellitus type II, controlled: (11) Elevated serum creatinine: PLAN: suspect due to IV volume depletion.......no sx of CHF/vol OL (12) Hyperkalemia: PLAN: Not on a potassium supplement. He is on Lisinopril but, only 5 mg daily. Hemolysis? PLAN: Plan 1. Continue therapy 2. BMP, CBC without differential, BNP and magnesium today 3. Decrease the at bedtime oxycodone to 5 mg. Scheduled 5 mg at at bedtime and at 0700. Oxycodone 5 mg every 4 hours as needed pain 4-10. 4. Continue to hold Lasix. Lungs are CTA and he denies SOB and orthopnea and has no DOUGLAS when doing the Nu-step. Wt is up a few lbs but, he was weighed in the middle of the day. Will weigh again in the AM. and then daily. BNP is WNL for his age. 5. Hold Lisinopril until we see the BMP in the AM. Charges/Coding Visit Charges Inpatient E&M: 95955 Subs Hosp L2
[2025-07-13 09:55] LABS: Hematocrit 34.6 % (40-54); Hemoglobin 10.7 g/dL (13.0-16.5); Mean Corp Hgb Conc 30.9 g/dL (32-36); Mean Corpuscular Volume 100.6 fL (80-94); Mean Platelet Vol. 8.9 fl (6.2-12.0); Platelet Count 314 K/mm3 (150-450); RBC Distribution Width CV 13.8 % (11.6-14.6); RBC Distribution Width SD 51.1 fl (35.1-43.9); Red Blood Count 3.44 M/mm3 (4.6-6.2); White Blood Count 9.5 K/mm3 (4.4-11.0)
[2025-07-13 10:40] LABS: Magnesium 2.2 mg/dL (1.5-2.2)
[2025-07-13 10:44] LABS: Anion Gap 9 (5-15); BUN 56 mg/dL (4-19); BUN/Creat Ratio 40.1 RATIO (10-20); Calcium,Total 9.5 mg/dL (7.6-11.0); Carbon Dioxide 28.5 mmol/L (21.0-32.0); Chloride 102 mmol/L (98-108); Estimated Creatinine Clearance 56.18 ml/min (50-250); Glucose 128 mg/dL (70-99); Potassium 5.2 mmol/L (3.3-5.1)
[2025-07-13 14:07] LABS: Pro- Brain NATRIURETIC PEPTIDE 519 pg/mL (<=1800)
--- NOTE | 2025-07-13 15:43 | CASEMGMT ---
Social Work Nursing scheduled sleep study for 07/17. Pt will DC from [facility] to sleep lab 07/17 and home 07/18. SW will follow up with pt to finalize DC needs outside of overnight O2. Leanne Hernandez DEPOSIT CLERK RN CARDIOLOGY
[2025-07-13] MEDS: Juven (unflavored) Packet 1 PACKET PO (16:15)
--- NOTE | 2025-07-13 20:12 | NURSING ---
SOAKED RT HAND FOR 15 MINUTES IN DIAL SOAP WATER. DRIED HAND AND APPLIED DSD.
[2025-07-14] VITALS (9 sets, daily range): BP systolic 110–119; BP diastolic 49–64; PULSE 57–79; RESP 16; TEMP 36.6–36.9; O2SAT 93–97; BMI 35.6
[2025-07-14 08:06] LABS: Anion Gap 11 (5-15); BUN 45 mg/dL (4-19); BUN/Creat Ratio 36.2 RATIO (10-20); Calcium,Total 9.8 mg/dL (7.6-11.0); Carbon Dioxide 26.5 mmol/L (21.0-32.0); Chloride 102 mmol/L (98-108); Estimated Creatinine Clearance 63.45 ml/min (50-250); Glucose 128 mg/dL (70-99); Potassium 4.7 mmol/L (3.3-5.1)
[2025-07-14] MEDS: Cholecalciferol (VIT D3) 25 MCG TABLET (1,000 UNITS) 50 MCG PO (08:10)
[2025-07-14] MEDS: Zinc Sulfate 50 mg zinc (220 mg) ORAL capsule PO (08:10)
[2025-07-14] MEDS: Juven (unflavored) Packet 1 PACKET PO ×2 (08:12→16:09)
[2025-07-14] MEDS: APIXABAN 5 MG TABLET PO ×2 (08:12→20:36)
--- NOTE | 2025-07-14 09:06 | PCM.PROGNOTE ---
Subjective Subjective Finished 7 days of Keflex for cellulitis of the R hand. Afebrile Vital signs stable Urine output continues to exceed oral intake despite holding diuretics. Sleeping well Good appetite All lab from today was personally reviewed. Sodium is 140 and the potassium is 4.7. The BUN is 45, down from 56 yesterday and the creatinine is 1.25 down from 1.40 yesterday. Pain is adequately controlled. Denies lightheadedness. Also denies chest pain, shortness of breath, nausea/vomiting/abdominal pain, dysuria and calf tenderness. He does feel a little gassy. Last bowel movement was Sunday. He does not feel constipated. He has noticed that he feels better since he has been wearing oxygen at night and he is actually feeling rested in the morning when he awakens. Objective Data Objective Data Vital Signs: Vital Signs Temp Pulse Resp BP Pulse Ox O2 Del Method O2 Flow Rate 97.9 F 65 16 110/64 96 Room Air 2 07/14/25 06:00 07/14/25 08:10 07/14/25 06:00 07/14/25 08:10 07/14/25 07:58 07/14/25 07:58 07/14/25 06:00 FiO2 21 07/07/25 21:45 Oxygen Flow Rate (L/min) 2 Oxygen Delivery Method Room Air Weight: 258 lb 9.636 oz Body Mass Index (BMI) 36.0 Intake & Output: Intake and Output for Last 24 Hours 07/12/25 07/13/25 07/14/25 23:59 23:59 23:59 Intake Total 1025 / 1025 1740 / 1740 450 / 450 Output Total 2450 / 2450 2325 / 2325 775 / 775 Balance -1425 / -1425 -585 / -585 -325 / -325 Lab / Micro Data 07/13/25 09:40 07/14/25 07:20 Labs: Laboratory Results - last 24 hr 07/13/25 09:40: WBC 9.5, RBC 3.44 L, Hgb 10.7 L, Hct 34.6 L, MCV 100.6 H, MCH 31.1, MCHC 30.9 L, RDW Std Deviation 51.1 H, RDW Coeff of Mukul 13.8, Plt Count 314, MPV 8.9, Sodium 140, Potassium 5.2 H, Chloride 102, Carbon Dioxide 28.5, Anion Gap 9, BUN 56 H, Creatinine 1.40 H, Estim Creat Clear Calc 56.18, Est GFR (MDRD) Non-Af 51 L, BUN/Creatinine Ratio 40.1 H, Glucose 128 H, Calcium 9.5, Magnesium 2.2, NT pro BNP II 519 07/14/25 07:20: Sodium 140, Potassium 4.7, Chloride 102, Carbon Dioxide 26.5, Anion Gap 11, BUN 45 H, Creatinine 1.25 H, Estim Creat Clear Calc 63.45, Est GFR (MDRD) Non-Af 59 L, BUN/Creatinine Ratio 36.2 H, Glucose 128 H, Calcium 9.8 Micro: Microbiology 07/12/25 18:53 Stool Stool Occult Blood (AMARJIT) - Final Occult Blood Positive 07/07/25 11:44 Wound - Finger Gram Stain - Final 07/07/25 11:44 Wound - Finger Wound Culture - Final Staphylococcus aureus Coag Negative Staph Physical Exam Const alert and no apparent distress General Appearance: cooperative Resp normal respiratory effort and clear to auscultation bilaterally Effort and Inspection: Negative for tachypneic Cardio regular rate, regular rhythm and no gallops GI normal to inspection, nondistended, normoactive bowel sounds, soft to palpation and non-tender GI Narrative: No guarding with palpation. Mild tympany. Extremity no calf tenderness General Extremity: edema bilateral lower extremity Details: mild (limited to the ankles. sitting with his legs dependent. JOSE ANTONIO wraps are in place. ) Skin Wound Narrative: The R hand wound is healing. The incision is intact except for a small are at the base of the little finger at the flexure between the palm and the proximal phalanx. Sutures were removed by Plastics. No erythema or purulent DC. Minimal pain with palpation around the wounds. Assessment & Plan Assessment/Plan (1) Debility: (2) Falls: (3) Left humeral fracture: QUALIFIERS: Encounter type: initial encounter Humerus Location: surgical neck Fracture type: closed Fracture morphology: 2-part Fracture alignment: displaced Qualified Code(s): S42.222A - 2-part displaced fracture of surgical neck of left humerus, initial encounter for closed fracture (4) Complicated laceration of hand: QUALIFIERS: Encounter type: subsequent encounter Laterality: right Qualified Code(s): S61.411D - Laceration without foreign body of right hand, subsequent encounter (5) Closed head injury without loss of consciousness: QUALIFIERS: Encounter type: subsequent encounter Qualified Code(s): S09.90XD - Unspecified injury of head, subsequent encounter (6) Cellulitis: QUALIFIERS: Site of cellulitis: extremity Site of cellulitis of extremity: upper extremity Laterality: right Qualified Code(s): L03.113 - Cellulitis of right upper limb (7) PAF (paroxysmal atrial fibrillation): (8) Chronic anticoagulation: (9) HTN (hypertension): QUALIFIERS: Hypertension type: primary hypertension Qualified Code(s): I10 - Essential (primary) hypertension (10) Diabetes mellitus type II, controlled: (11) Elevated serum creatinine: (12) Hyperkalemia: (13) Heme + stool: PLAN: Not on a PPI but, he is on chronic anticoagulation. No N/V/Abd pain. PLAN: Plan 1. Continue therapy 2. Continue to hold Lasix and monitor intake and output and weights closely. 3. Plan DC to the sleep lab for Sunday and then home Sunday morning. 4. Check iron studies. Charges/Coding Visit Charges Inpatient E&M: 66607 Subs Hosp L1
--- NOTE | 2025-07-14 12:53 | PCM.PN.SRG ---
Subjective Subjective He is seen this morning with Marga Pruitt wound RN at bedside. He denies some wound soreness but denies finger pain, numbness, tingling, drainage. He has been compliant with soap water soaks and dry dressing twice a day. He has completed 7 days of oral Keflex. Objective Data Objective Data Vital Signs: Vital Signs Temp Pulse Resp BP Pulse Ox O2 Del Method O2 Flow Rate 97.9 F 65 16 110/64 96 Room Air 2 07/14/25 06:00 07/14/25 08:10 07/14/25 06:00 07/14/25 08:10 07/14/25 07:58 07/14/25 07:58 07/14/25 06:00 FiO2 21 07/07/25 21:45 Oxygen Flow Rate (L/min) 2 Oxygen Delivery Method Room Air Weight: 255 lb 5 oz Body Mass Index (BMI) 35.6 Intake & Output: Intake and Output for Last 24 Hours 07/12/25 07/13/25 07/14/25 23:59 23:59 23:59 Intake Total 1025 / 1025 1740 / 1740 950 / 950 Output Total 2450 / 2450 2325 / 2325 1375 / 1375 Balance -1425 / -1425 -585 / -585 -425 / -425 Lab / Micro Data Attestation: I reviewed the patient's lab results. 07/13/25 09:40 07/14/25 07:20 Labs: Laboratory Results - last 24 hr 07/13/25 09:40: NT pro BNP II 519 07/14/25 07:20: Sodium 140, Potassium 4.7, Chloride 102, Carbon Dioxide 26.5, Anion Gap 11, BUN 45 H, Creatinine 1.25 H, Estim Creat Clear Calc 63.45, Est GFR (MDRD) Non-Af 59 L, BUN/Creatinine Ratio 36.2 H, Glucose 128 H, Calcium 9.8 Micro: Microbiology 07/12/25 18:53 Stool Stool Occult Blood (AMARJIT) - Final Occult Blood Positive 07/07/25 11:44 Wound - Finger Gram Stain - Final 07/07/25 11:44 Wound - Finger Wound Culture - Final Staphylococcus aureus Coag Negative Staph Physical Exam Narrative Afebrile/VSS. Bandaid overlying wound which is dry and clean. Sutures are overgrown, laceration with good adherence to wound bed. Healing well with infection, drainage. MCP crease is healing well. Mild discomfort with wound palpation. Flexes MCP, PIP, DIP easily and smoothly. No axial load pain. Currette was used to remove slough, all sutures were removed without issues. Assessment & Plan Assessment/Plan (1) Hand laceration: QUALIFIERS: Encounter type: subsequent encounter PLAN: Does not appear infected, healing well. Does not warrant further abx. Dry dressing changes daily. Will continue to follow. Charges/Coding Visit Charges Inpatient E&M: 79063 Subs Hosp L2
[2025-07-14] MEDS: Senna/Docusate Sodium 1 Tablet 2 TABLET PO (20:36)
[2025-07-15] VITALS (9 sets, daily range): BP systolic 112–122; BP diastolic 48–54; PULSE 60–70; RESP 15–17; TEMP 36.6–36.8; O2SAT 91–98; BMI 35.3
[2025-07-15] MEDS: Zinc Sulfate 50 mg zinc (220 mg) ORAL capsule PO (07:51)
[2025-07-15] MEDS: Cholecalciferol (VIT D3) 25 MCG TABLET (1,000 UNITS) 50 MCG PO (07:51)
[2025-07-15] MEDS: Juven (unflavored) Packet 1 PACKET PO ×2 (07:51→16:36)
[2025-07-15] MEDS: APIXABAN 5 MG TABLET PO ×2 (07:52→20:00)
[2025-07-15] MEDS: Senna/Docusate Sodium 1 Tablet 2 TABLET PO (07:52)
--- NOTE | 2025-07-15 14:50 | WOUNDNOTE ---
wound photo: right hand
--- NOTE | 2025-07-15 16:11 | PN.SURG_ITS ---
Subjective Subjective Patient seen today with Marga wound RN. He does not endorse new pain, drainage, fever, chills. Wound was covered. Objective Data Objective Data Vital Signs: Vital Signs Temp Pulse Resp BP Pulse Ox O2 Del Method O2 Flow Rate 97.8 F 60 16 112/54 L 92 Room Air 2 07/15/25 05:29 07/15/25 07:52 07/15/25 05:29 07/15/25 05:29 07/15/25 09:10 07/15/25 09:10 07/15/25 05:29 FiO2 21 07/07/25 21:45 Oxygen Flow Rate (L/min) 2 Oxygen Delivery Method Room Air Weight: 253 lb 1.451 oz Body Mass Index (BMI) 35.3 Intake & Output: Intake and Output for Last 24 Hours 07/13/25 07/14/25 07/15/25 23:59 23:59 23:59 Intake Total 1740 / 1740 2009 780 / 780 Output Total 2325 / 2325 2725 / 2725 1600 / 1600 Balance -585 / -585 -715 / -715 -820 / -820 Lab / Micro Data Attestation: I reviewed the patient's lab results. 07/13/25 09:40 07/14/25 07:20 Labs: Laboratory Results - last 24 hr 07/08/25 16:38: POC Glucose 131 H 07/08/25 21:25: POC Glucose 140 H 07/09/25 06:25: POC Glucose 135 H Micro: Microbiology 07/12/25 18:53 Stool Stool Occult Blood (AMARJIT) - Final Occult Blood Positive 07/07/25 11:44 Wound - Finger Gram Stain - Final 07/07/25 11:44 Wound - Finger Wound Culture - Final Staphylococcus aureus Coag Negative Staph Physical Exam Narrative Afebrile/Vitals are WNL. In no acute distress Right upper extremity Inspection: No erythema, improved edema. Bioburden on wound edges, no debridement today. Scant yellow drainage adherent to dressing. Palpation: No increased warmth, no significant tenderness to palpation. No active or expressible drainage. Motor: No axial loading pain, flexes and extends all MCP, PIP, DIP easily without difficulty. Sensation: Intact to light touch Vascular: Well-perfused, pink, capillary refill less than 2 seconds. Assessment & Plan Assessment/Plan (1) Complicated laceration of hand: QUALIFIERS: Encounter type: subsequent encounter Laterality: r ight Qualified Code(s): S61.411D - Laceration without foreign body of right hand, subsequent encounter PLAN: Plan Does not appear cellulitic anymore. Continue current wound care regimen. - Wound PCR positive for staph aureus. - Recommend continuing oral Keflex for total of 7 days. - Dial soap and water soaks twice daily with dry dressing over the incisional area. - OK to discharge plan from Plastic standpoint. - Dr. Hou will follow up with patient in wound center on 07/20 for hand suture removal if patient is discharged but otherwise we will continue to follow while he's here. Charges/Coding Visit Charges Inpatient E&M: 77410 Subs Hosp L2 Office Visits / Consults: 55545 OV L2 Est 10min
[2025-07-16 05:15] VITALS: BP 124/48; PULSE 96; RESP 16; TEMP 36.6; O2SAT 98; BMI 35.4
[2025-07-16 07:42] VITALS: PULSE 96
[2025-07-16] MEDS: APIXABAN 5 MG TABLET PO ×2 (07:42→20:00)
[2025-07-16] MEDS: Zinc Sulfate 50 mg zinc (220 mg) ORAL capsule PO (07:42)
[2025-07-16] MEDS: Senna/Docusate Sodium 1 Tablet 2 TABLET PO (07:42)
[2025-07-16] MEDS: Cholecalciferol (VIT D3) 25 MCG TABLET (1,000 UNITS) 50 MCG PO (07:42)
[2025-07-16] MEDS: Juven (unflavored) Packet 1 PACKET PO (07:43)
--- NOTE | 2025-07-16 08:52 | PCM.PROGNOTE ---
Subjective Subjective Miky was seen on team rounds today. His Tana was present in the room. All questions were answered to their satisfaction. Afebrile VSS -blood pressure is well-controlled. Maintaining appropriate oxygen saturation on RA Oral intake - FOOD good FLUIDS fair to good Discussed with nursing - no problems that need addressed Reviewed the THERAPY notes Medication list reviewed. Miky feels his pain is adequately controlled at the present time. He denies shortness of breath, chest pain, palpitations, lightheadedness, calf pain, dysuria, nausea/vomiting/abdominal pain and cephalgia. Iron studies revealed no iron deficiency. Objective Data Objective Data Vital Signs: Vital Signs Temp Pulse Resp BP Pulse Ox O2 Del Method O2 Flow Rate 97.9 F 96 16 124/48 H 98 Room Air 2 07/16/25 05:15 07/16/25 07:42 07/16/25 05:15 07/16/25 05:15 07/16/25 05:15 07/16/25 06:54 07/15/25 05:29 FiO2 21 07/07/25 21:45 Oxygen Flow Rate (L/min) 2 Oxygen Delivery Method Room Air Weight: 253 lb 12.033 oz Body Mass Index (BMI) 35.4 Intake & Output: Intake and Output for Last 24 Hours 07/14/25 07/15/25 07/16/25 23:59 23:59 23:59 Intake Total 2009 1370 / 1370 420 / 420 Output Total 2725 / 2725 2350 / 2350 380 / 380 Balance -715 / -715 -980 / -980 40 / 40 Lab / Micro Data 07/13/25 09:40 07/14/25 07:20 Micro: Microbiology 07/12/25 18:53 Stool Stool Occult Blood (AMARJIT) - Final Occult Blood Positive 07/07/25 11:44 Wound - Finger Gram Stain - Final 07/07/25 11:44 Wound - Finger Wound Culture - Final Staphylococcus aureus Coag Negative Staph Physical Exam Const alert and no apparent distress General Appearance: cooperative Resp normal respiratory effort and clear to auscultation bilaterally Effort and Inspection: Negative for tachypneic Cardio regular rate, regular rhythm and no gallops GI normal to inspection, nondistended, normoactive bowel sounds, soft to palpation and non-tender Extremity no calf tenderness General Extremity: edema bilateral lower extremity Details: mild (limited to the ankles. sitting with his legs dependent. JOSE ANTONIO wraps are in place. ) Assessment & Plan Assessment/Plan (1) Debility: (2) Falls: (3) Left humeral fracture: QUALIFIERS: Encounter type: initial encounter Humerus Location: surgical neck Fracture type: closed Fracture morphology: 2-part Fracture alignment: displaced Qualified Code(s): S42.222A - 2-part displaced fracture of surgical neck of left humerus, initial encounter for closed fracture (4) Complicated laceration of hand: QUALIFIERS: Encounter type: subsequent encounter Laterality: right Qualified Code(s): S61.411D - Laceration without foreign body of right hand, subsequent encounter (5) Closed head injury without loss of consciousness: QUALIFIERS: Encounter type: subsequent encounter Qualified Code(s): S09.90XD - Unspecified injury of head, subsequent encounter (6) Cellulitis: QUALIFIERS: Site of cellulitis: extremity Site of cellulitis of extremity: upper extremity Laterality: right Qualified Code(s): L03.113 - Cellulitis of right upper limb (7) PAF (paroxysmal atrial fibrillation): (8) Chronic anticoagulation: (9) HTN (hypertension): QUALIFIERS: Hypertension type: primary hypertension Qualified Code(s): I10 - Essential (primary) hypertension (10) Diabetes mellitus type II, controlled: (11) Elevated serum creatinine: (12) Hyperkalemia: (13) Heme + stool: PLAN: Not on a PPI but, he is on chronic anticoagulation. No N/V/Abd pain. PLAN: Plan 1. Plan discharge for tomorrow. Will discharge to the sleep lab and then home Sunday a.m. 2. Home health care at discharge 3. Will follow-up with Dr. Rivera in the office in 2 weeks 4. 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 Continue nonweightbearing on the left upper extremity at discharge. 6. Will need a walking stick. 7. Overnight trending pulse ox today to document need for home oxygen for sleep-related hypoxia. 8. BMP and BNP in the a.m. Charges/Coding Visit Charges Inpatient E&M: 02266 Subs Hosp L2
[2025-07-16 09:44] LABS: Ferritin 143 ng/mL (37-417); Iron 61 ug/dL (65-175); Iron Binding Capacity,Total 282 ug/dL (250-450); Iron Binding Capacity,Unsat 221 ug/dL (228-428)
--- NOTE | 2025-07-16 12:34 | CASEMGMT ---
Addendum entered by Leanne Hernandez 07/16/25 14:57: returned call and provided HHC preference of [facility]. SW educated that HHC agency will contact pt/ for SOC scheduling about 2-3 days after DC once PCP signs HHC orders. -SW phoned referral to [facility]. They can accept with SOC 07/20. Addendum entered by Leanne Hernandez 07/16/25 14:04: [facility] SW left VM with . SW referred to [facility] via [employer]. Original Note: Social Work IDT met with patient and for Team meeting. Discussed patient's progress in PT/OT/SN/MD. Confirmed Medicare DC for 07/17 to sleep study. SW to coordinate O2 testing for night. requested [facility]. SW to [facility] to [facility] to [facility]. If not, pt can use [facility]. SW inquired about HHC vs OP therapy. pt prefers HHC. SW provided list of skilled HHC agencies within geographical area, INN with insurance, that include quality and resource data via [employer] guide. Pt has no DME needs. 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 Plan: DC home with 07/17, to sleep study, HHC PT/OT/SN Leanne OLMEDOW
--- NOTE | 2025-07-16 16:09 | PN.SURG_ITS ---
Subjective Subjective Patient seen today with Marga, wound RN. He does not endorse new pain, drainage, fever, chills. His dressing was changed to xeroform yesterday. Earlier today Dr. Oconnor noted the wound to be a bit too dry and changed it to adaptic with gauze wrap. He states the back of his hand between 4th and 5th MCP is tender but denies injury, weakness, numbness tingling. He is due for discharge tomorrow with plans for wound follow up with Dr. Hou on 07/27 at the wound center. Objective Data Objective Data Vital Signs: Vital Signs Temp Pulse Resp BP Pulse Ox O2 Del Method O2 Flow Rate 97.9 F 96 16 124/48 H 98 Room Air 2 07/16/25 05:15 07/16/25 07:42 07/16/25 05:15 07/16/25 05:15 07/16/25 05:15 07/16/25 06:54 07/15/25 05:29 FiO2 21 07/07/25 21:45 Oxygen Flow Rate (L/min) 2 Oxygen Delivery Method Room Air Weight: 253 lb 12.033 oz Body Mass Index (BMI) 35.4 Intake & Output: Intake and Output for Last 24 Hours 07/14/25 07/15/25 07/16/25 23:59 23:59 23:59 Intake Total 2009 1370 / 1370 780 / 780 Output Total 2725 / 2725 2350 / 2350 630 / 630 Balance -715 / -715 -980 / -980 150 / 150 Lab / Micro Data Attestation: I reviewed the patient's lab results. 07/13/25 09:40 07/14/25 07:20 Labs: Laboratory Results - last 24 hr 07/16/25 08:25: Iron 61 L, TIBC 282, Iron Saturation 21.7, Unsaturated IBC 221 L , Ferritin 143 Micro: Microbiology 07/12/25 18:53 Stool Stool Occult Blood (AMARJIT) - Final Occult Blood Positive 07/07/25 11:44 Wound - Finger Gram Stain - Final 07/07/25 11:44 Wound - Finger Wound Culture - Final Staphylococcus aureus Coag Negative Staph Physical Exam Narrative Afebrile/Vitals are WNL. In no acute distress Right upper extremity Inspection: No erythema, improved edema. Bioburden on wound edges, no debridement today. Skin fold at MCP appears a bit macerated, wrap and dressing removed and left open to air. Not infected. Palpation: No increased warmth, non TTP of dorsal 4th and 5th MCPs. No active or expressible drainage. Motor: No axial loading pain to small finger, flexes and extends all MCP, PIP, DIP easily without difficulty. Sensation: Intact to light touch Vascular: Well-perfused, pink, capillary refill less than 2 seconds. Assessment & Plan Assessment/Plan (1) Complicated laceration of hand: QUALIFIERS: Encounter type: subsequent encounter Laterality: r ight Qualified Code(s): S61.411D - Laceration without foreign body of right hand, subsequent encounter PLAN: Plan Does not appear cellulitic anymore. - Wound PCR positive for staph aureus. - Completed oral Keflex for total of 7 days. - Encouraged keeping the incision clean and dry with soap and water and open to air. - Dr. Hou will follow up with patient in wound center on 07/27 Charges/Coding Visit Charges Inpatient E&M: 24493 Subs Hosp L2
[2025-07-16 17:12] VITALS: BP 115/50; PULSE 61; RESP 17; TEMP 36.2; O2SAT 96
[2025-07-16 19:35] VITALS: BP 113/47; PULSE 62; RESP 17; O2SAT 96
[2025-07-16 20:01] VITALS: BP 113/47; PULSE 62
[2025-07-16 21:11] VITALS: PULSE 54; O2SAT 94
--- NOTE | 2025-07-17 05:24 | NURSING ---
pt went to put tylenol in his mouth and dropped one on the floor, staff to med and removed an additional 500mg tablet from the omni cell to give to pt
[2025-07-17 05:49] VITALS: BP 122/72; PULSE 62; RESP 15; TEMP 36.7; O2SAT 95; BMI 35.4
[2025-07-17] MEDS: Cholecalciferol (VIT D3) 25 MCG TABLET (1,000 UNITS) 50 MCG PO (07:50)
[2025-07-17] MEDS: Juven (unflavored) Packet 1 PACKET PO (07:50)
[2025-07-17] MEDS: Zinc Sulfate 50 mg zinc (220 mg) ORAL capsule PO (07:50)
[2025-07-17 07:51] VITALS: PULSE 57
[2025-07-17] MEDS: APIXABAN 5 MG TABLET PO ×2 (07:51→20:03)
[2025-07-17] MEDS: Senna/Docusate Sodium 1 Tablet 2 TABLET PO (07:52)
[2025-07-17 07:54] VITALS: BP 110/47; PULSE 57
[2025-07-17 08:36] LABS: Hematocrit 36.1 % (40-54); Hemoglobin 11.6 g/dL (13.0-16.5)
--- NOTE | 2025-07-17 09:34 | PCM.DC ---
Discharge Instructions DC O2, CPAP, BIPAP needs Home O2 Discharge instructions: Yes Type of respiratory needs?: Oxygen Oxygen frequency: With Sleeping (the overnight trending pulse ox from 07/16/25 was reviewed. He does desaturate with sleeping and I agree with the findings on the report. SW to arrange home O2. sleep study ordered for the night of the and then he will follow up with pulmonary medicine to review the results. ) Oxygen liters per minute when sleepin Dressing / Incision Discharge Activity: May Shower and - (Use the walking stick when ambulating. ) Weight Bearing Status: Full weight bearing Keep extremity elevated above heart level: Left Arm Additional Activity Instructions:: No weight bearing with the L arm.......elevated when seated to help control edema Dressing / Incision Call your doctor if your incision/area has: Continuous Slow Oozing, Sudden Increased Bleeding, Increased Pain/ Swelling, Increased Redness, Foul Smelling Discharge, Swelling at the incision site and - (You will follow up with Dr. Hou in the wound care center following DC for the laceration to the R hand. ) Call your doctor if you observe: Fever of 101 or Higher, Shortness of breath, Dizziness, Fainting spells, Swelling in the ankles, Chest pain, Increased palpitations (irregular heartbeat), Calf discomfort and Uncontrolled pain Suture Line Care: Avoid Pulling/Pushing and Avoid Pinching/Bending Cleanse incision/area with: Soap & Water and - Follow Up Care When: Appts have been made for you with Dr. Hou and Dr. Rivera and they are listed later in this document. Test Results: Test results from this visit will be discussed in further detail at your follow-up appointment, if applicable. Pending Tests Upon Discharge: none Discharge Plan Admission Admit Date/Time: 07/06/25 15:33 Primary Reason for Your Visit: Debility due to fall/fx L humerus. Attending Provider: Lois Oconnor Primary Care Provider: Billy Braga Consulting Providers: Jared Hou Instructions Patient Instructions: Understanding Oxygen Therapy, What Are Snoring and Sleep Apnea?, Caring for Your Incision, ED Low-Salt Diet Additional Instructions / Restrictions: 1. You are no longer taking Amlodipine. Your BP was on the low side and I stopped it. your BP is well controlled without the Amlodipine. One of the biggest side effects of Amlodipine is swelling in the ankles. you had no swelling in the ankles on the day of discharge from rehab......on no diuretic and no amlodipine. Ankles become swollen when we eat too much salt. You have been on a salt restricted diet while on rehab. If you go home and increase your salt intake the swelling may come back......salt causes fluid retention. It also can increase BP. Before you will ever see swelling in the legs from fluid retention your weight will start increasing. I want you to start weighing yourself every morning after using the restroom with no close on and keep a record of what the daily weights are. If your weight increases by 5 pounds or more in 5 to 7 days then take 1 Lasix daily until your weight is back to baseline. Baseline will be whatever you weight Sunday. 2. Be careful with that R hand.......it is healing but, as we get older we heal more slowly. Even when it looks healed on top it will not be healed completely underneath. Dr. Hou wants to see you in the wound care center on 07/25/25. If it breaks open or there is pus or increasing redness or increasing pain/swelling before then call his office for advice. 3. I think the reason you have not been feeling rested in the mornings when you get up and the restless legs and the frequent napping is you probably have sleep apnea. You have done much better since you have been using the oxygen when you are sleeping. You will need to follow up with a pulmonary doctor or a doctor who specializes in sleep disorders if the sleep study shows that you have sleep apnea. I am sure the [facility] has someone you can see for this. 4. You are scheduled to see Dr. Rivera.......he is an orthopedic doctor. The fracture of the Left upper arm bone (humerus) will heal.....it takes longer because you are older now. Sometimes even after it heals you may have continued pain and sometimes the range of motion will not be the same after this type of fracture. If that is the case you may need to have a shoulder replacement. Dr. Rivera will discuss options with you. He will also [facility] to see if it is showing evidence of healing. 5. You have a chronic mild anemia. We checked your stool for blood and it does have microscopic blood in it. This is not uncommon in people who are chronically on blood thinners. You may want to discuss this with your primary care doctor. If you have not had a colonoscopy in the past 5 years you may want to consider getting this done to make sure there is not a problem in the colon......like a polyp or a tumor. We check your iron tests while you were in the hospital and they were normal. 6. It has been a pleasure meeting you and Tana. If wither of you has any questions after you leave rehab please do not hesitate to call me. OFFICE: [phone] CELL: [phone] NURSES ST[facility] ON REHAB: [phone] Discharge Orders/Prescriptions Prescriptions: New acetaminophen 500 mg Tablet 1,000 mg PO Q8 PRN (Reason: fever/pain) Qty: 1 0RF oxycodone 5 mg Tablet 5 mg PO Q4H PRN PRN (Reason: pain 4-10) 7 Days Qty: 35 0RF Continued metformin 500 MG tablet 500 mg PO DAILY metoprolol tartrate 25 MG tablet 25 mg PO BID cholecalciferol (vitamin D3) [Vitamin D3] 2,000 UNIT capsule 2,000 unit PO DAILY aspirin 81 mg capsule 81 mg PO DAILY levothyroxine [Synthroid] 75 mcg tablet 75 mcg PO DAILY atorvastatin [Lipitor] 10 mg tablet 10 mg PO QHS lisinopril 10 mg tablet 5 mg PO DAILY tamsulosin 0.4 mg capsule 0.4 mg PO DAILY Eliquis 5 mg tablet 5 mg PO BID Changed furosemide [Lasix] 40 mg tablet 20 mg PO DAILY PRN (Reason: fluid) Qty: 30 0RF Rx Instructions: take as needed for increase in dipti of > 5 lbs in 5 days Discontinued amlodipine 2.5 mg tablet 2.5 mg PO DAILY oxycodone 5 mg Tablet 5 mg PO Q4H PRN (Reason: Pain Score 1-10) Referrals / Follow Up: Wound Center [Other] - 07/27/25 1:00 pm Referral Note: [address] Billy Braga DO [Primary Care Provider, Family Practice] Referral Note: office will call with appt. Umer Rivera MD [Med Staff - Active Staff, Orthopedics] - 07/20/25 1:00 pm Disposition Disposition (needs filled in before D/C Order can be placed): Home Health Service
[2025-07-17 09:40] LABS: Anion Gap 14 (5-15); BUN 36 mg/dL (4-19); BUN/Creat Ratio 31.5 RATIO (10-20); Calcium,Total 9.7 mg/dL (7.6-11.0); Carbon Dioxide 22.3 mmol/L (21.0-32.0); Chloride 102 mmol/L (98-108); Estimated Creatinine Clearance 68.30 ml/min (50-250); Glucose 123 mg/dL (70-99); Potassium 4.7 mmol/L (3.3-5.1)
--- NOTE | 2025-07-17 11:50 | PCM.DC.SUM ---
Providers Date of Admission: 07/06/25 Date of Discharge: 07/17/25 Primary Care Physician: Dr. Billy Braga, /[facility] [place] Consultations 07/07/25 09:26 Consult: Plastic Surgery Routine Consulting Provider: Kandi Hou Reason for Consult: R hand laceration EMERGENT Consult: No MD Notified: Yes Date Notified: 07/07/25 Time Notified: 09:27 Method of Notification: Verbal Reason For Visit: LT HUMERAL FX Diagnosis Discharge Diagnosis (1) Physical debility: Status: Acute Code(s): R53.81 - Other malaise (2) Falls: Status: Inactive Code(s): R29.6 - Repeated falls (3) Left humeral fracture: Status: Acute Code(s): S42.302A - Unspecified fracture of shaft of humerus, left arm, initial encounter for closed fracture Qualifiers: Encounter type: initial encounter Humerus Location: surgical neck Fracture type: closed Fracture morphology: 2-part Fracture alignment: displaced Qualified Code(s): S42.222A - 2-part displaced fracture of surgical neck of left humerus, initial encounter for closed fracture (4) Hand laceration: Status: Acute Code(s): S61.419A - Laceration without foreign body of unspecified hand, initial encounter Qualifiers: Encounter type: subsequent encounter Foreign body presence: without foreign body Laterality: right Qualified Code(s): S61.411D - Laceration without foreign body of right hand, subsequent encounter (5) Cellulitis: Status: Resolved Code(s): L03.90 - Cellulitis, unspecified Qualifiers: Site of cellulitis: extremity Site of cellulitis of extremity: upper extremity Laterality: right Qualified Code(s): L03.113 - Cellulitis of right upper limb (6) Heme + stool: Status: Acute Code(s): R19.5 - Other fecal abnormalities (7) Elevated serum creatinine: Status: Resolved Code(s): R79.89 - Other specified abnormal findings of blood chemistry Plan: Resolved with discontinuing furosemide. At the time of DC from rehab the creat is back to baseline of 1.15. He has no ankle edema and the lungs are CTA with good air exchange. (8) Hyperkalemia: Status: Resolved Code(s): E87.5 - Hyperkalemia Plan: Resolved with improvement in the creat with discontinuation of Lasix. Creat at DC is 4.7. (9) Chronic anemia: Status: Chronic Code(s): D64.9 - Anemia, unspecified Plan: Iron studies were negative for iron deficiency. Stool is heme +. (10) Hyperbilirubinemia: Status: Chronic Code(s): E80.6 - Other disorders of bilirubin metabolism Plan: Conjugated bilirubin elevation. W/U negative for hemolysis. Likely genetic. (11) PAF (paroxysmal atrial fibrillation): Status: Chronic Code(s): I48.0 - Paroxysmal atrial fibrillation (12) Chronic anticoagulation: Status: Chronic Code(s): Z79.01 - meterman (current) use of anticoagulants Plan: Will continue Eliquis 5 mg BID. (13) Diabetes mellitus type II, controlled: Status: Chronic Code(s): E11.9 - Type 2 diabetes mellitus without complications Plan: Well controlled on diet and Metformin with HGBA1C less than 7. (14) HTN (hypertension): Status: Chronic Code(s): I10 - Essential (primary) hypertension Qualifiers: Hypertension type: primary hypertension Qualified Code(s): I10 - Essential (primary) hypertension Plan: BP was low and he c/o lightheadedness. Amlodipine was discontinued and the BP is well controlled without Amlodipine. BP at Dc from rehab ranged from 110/47 to 122/72 for 48 hours prior to discharge. (15) HLD (hyperlipidemia): Status: Chronic Code(s): E78.5 - Hyperlipidemia, unspecified Qualifiers: Hyperlipidemia type: unspecified Qualified Code(s): E78.5 - Hyperlipidemia, unspecified (16) Hypothyroidism: Status: Chronic Code(s): E03.9 - Hypothyroidism, unspecified Qualifiers: Hypothyroidism type: unspecified Qualified Code(s): E03.9 - Hypothyroidism, unspecified Plan: TSH on 07/07/2025 was 3.32. (17) Obesity: Status: Chronic Code(s): E66.9 - Obesity, unspecified Qualifiers: Obesity type: due to excess calories Obesity classification: adult class 2 (BMI 35 - 39.9) Serious obesity comorbidity presence: with serious comorbidity Body mass index: BMI 35.0-35.9 Qualified Code(s): E66.812 - Obesity, class 2; E66.01 - Morbid (severe) obesity due to excess calories; Z68.35 - Body mass index [BMI] 35.0-35.9, adult (18) S/P AVR (aortic valve replacement): Status: Chronic Code(s): Z95.2 - Presence of prosthetic heart valve (19) S/P CABG x 1: Status: Chronic Code(s): Z95.1 - Presence of aortocoronary bypass graft (20) History of cardioversion: Status: Chronic Code(s): Z92.89 - Personal history of other medical treatment Plan: His last cardioversion was in May 2025 at the [facility]. (21) Hypoxemia associated with sleep: Status: Acute Code(s): G47.36 - Sleep related hypoventilation in conditions classified elsewhere Plan: Sleep study was ordered for the night of 07/17/2025. Home O2 was arranged by the social media editor and he will wear oxygen anytime he is napping/sleeping. Since he has been wearing oxygen at night the restless leg has resolved, he feels rested when he wakes up in the morning and is much more alert during the day. (22) Restless leg: Status: Chronic Code(s): G25.81 - Restless legs syndrome Plan: Suspect due to untreated CIELO. Plan 1. Discharged to the sleep lab for formal sleep study on 07/17/2025. Will need follow-up with pulmonary medicine to review the results and prescribe treatment if needed. This can likely be done with pulmonary at the [facility]. 2. Home oxygen was arranged by the social media editor and he will wear 2 L/min anytime he is sleeping. 3. Follow-up with Dr. Rivera for the left humeral fracture. 4. Follow-up with Dr. Kandi Hou for laceration of right hand. 5. Follow-up with Dr. Billy Braga for primary care or the [facility] in [place]. 6. Home health care arranged by the social media editor prior to discharge. Medications at Discharge Home Medications metformin 500 mg tablet 500 mg PO DAILY DIABETES 02/21/18 metoprolol tartrate 25 mg tablet 25 mg PO BID BLOOD PRESSURE 02/21/18 cholecalciferol (vitamin D3) 50 mcg (2,000 unit) capsule (Vitamin D3) 2,000 unit PO DAILY supplement 03/26/18 apixaban 5 mg tablet (Eliquis) 5 mg PO BID prophylaxes 07/03/25 aspirin 81 mg capsule 81 mg PO DAILY heart health 07/03/25 atorvastatin 10 mg tablet (Lipitor) 10 mg PO QHS cholesterol 07/03/25 levothyroxine 75 mcg tablet (Synthroid) 75 mcg PO DAILY thyroid 07/03/25 lisinopril 10 mg tablet 5 mg PO DAILY blood pressure 07/03/25 tamsulosin 0.4 mg capsule 0.4 mg PO DAILY retention 07/03/25 acetaminophen 500 mg tablet 1,000 mg (2 x 500 mg) PO Q8 PRN fever/pain #1 TAB 07/17/25 furosemide 40 mg tablet (Lasix) 20 mg (1/2 x 40 mg) PO DAILY PRN fluid #30 tabs 07/17/25 oxycodone 5 mg tablet 5 mg PO Q4H PRN PRN pain 4-10 1 week #35 tabs 07/17/25 Hospital Course Operations None Procedures None Summary of Care Provided Minutes Spent on Discharge: 45 Hospital Course: KANDI GOMEZ, is a 80 YO M with a PMH of PAF, chronic anticoagulation with Eliquis, CAD with hx of CABG X1, hx of AVR, DM II, 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 He had a laceration of the R hand which was repaired and he was sent home. The next day he had another mechanical fall going up 2 steps and he landed on his left side. XRAY showed a comminuted fracture of the L humerus. He was seen by orthopedics who recommended a sling and OP F/U to discuss conservative management vs shoulder replacement. He was admitted to the hospitalist service. He was transferred to the acute inpt rehab unit at [facility] on 07/06/25 for 3 hours of therapy daily to restore function/independence at or near his level prior to the fall. At the time of admission to rehab Miky c/o feeling tired all the time. His related that he can not stop moving his legs while sleeping and she had observed him to stop breathing. He was taking 2-3 naps a day lasting 60-90 minutes. An overnight trending pulse ox was done and it was abnormal with many desaturations, some lasting > 60 seconds. We started him on oxygen 2 LPM at night and he became much more alert during the day. He told me that he felt rested when he got up in the morning and this had not happened for a long time. A sleep study was ordered for the night of discharge from rehab and he will follow up with pulmonary/sleep medicine to discuss the results of the study when they are available. He may want to follow up at the [facility]. Miky was anemic at admission with a hemoglobin of 11.9. MCV was elevated at 98.4 and has been as high as 100.6. Hemoccult stool was positive. TSH was within normal limits. Iron studies were within normal limits. Direct bilirubin was elevated at 2.3 and has been elevated in the past. 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 Haptoglobin was within normal limits and LDH was also within normal limits ruling out hemolysis as the etiology of the hyperbilirubinemia. The flap laceration of the R hand that was sutured in the ED was erythematous, swollen and painful at presentation to rehab. There was purulent drainage from the wound. A culture was taken and grew a MSSA. He was treated with 7 days of Keflex. He has a reported PCN allergy but, he tolerated the Keflex with no rash and no other sx of allergic reaction. He was seen in consult by Dr. Hou from plastic surgery. He recommended BID soaks with Dial soap. Cellulitus resolved and the sutures were able to be removed with no significant wound dehiscence. Erythema and pain have completely resolved. He denies pain in the R hand. Sensation is intact. He is going to follow up with Dr. Hou on 07/27/25 in the wound care center. While on rehab Miky was maintained on 20 mg of Lasix daily which he takes at home. Despite the Lasix he continued to have pitting edema limited to the ankles. Patrice wrap's were applied. Blood pressures were on the low side initially and amlodipine was discontinued. Edema improved and the BP remained well controlled on Lisinopril and Metoprolol. He was placed on a sodium restricted diet while on rehab. With daily Lasix the creat increased from 1.17 at admission to the hospital up to 1.40. Lasix was discontinued. At discharge from the hospital his creatinine is back to baseline at 1.15. He has been off Lasix for approximately 1 week and he has no ankle edema and the lungs are clear to auscultation with good air exchange throughout. He was discharged home with an order for Lasix 20 mg daily as needed increase in weight by 5 pounds or more in 5 to 7 days. I suspect the low sodium diet and the discontinuation of Amlodipine helped resolve the LE edema. Miky did well in therapy and was discharged from rehab on 07/17/25. He will have [facility] and this was arranged by the . His came in for family training prior to DC and she felt she would be able to provide the assistance he needs with LB dressing and toileting at home. Appts were made for Miky to follow up with Dr. Rivera from orthopedics and with Dr. Hou. He will also need to follow up with primary care at [facility]......either the [facility] in [place] or Dr. Braga in [place]. He will also continue to follow up with cardiology at the [facility] as previously arranged. Physical Exam Const alert, oriented x3 and no apparent distress Constitutional Narrative: Sitting in the recliner at the bedside. Much more alert during the days than he was at admission to rehab. General Appearance: cooperative, comfortable and well kempt HEENT normocephalic, head/scalp atraumatic and oropharynx normal HEENT Narrative: He is [place] and has BL hearing aids.......the left hearing aid is not functioning currently and he is going to address this after DC from rehab. He has significant rhinophyma. No oopenings in the skin. Head and Scalp: normocephalic Eyes PERRL, EOMs intact bilaterally, conjunctivae normal and no scleral icterus Eyes Narrative: No discharge from the eyes and no mattering of the eyelashes. Eyes are blue. Neck supple and No nodes General: trachea midline Chest Chest: symmetrical chest wall rise Resp normal respiratory effort, no use of accessory muscles and clear to auscultation bilaterally Resp Narrative: Breath sounds are mildly diminished throughout, possibly secondary to body habitus. Not tachypneic. Effort and Inspection: able to speak in complete sentences; Negative for tachypneic or respiratory distress Cardio regular rate, regular rhythm, no murmurs, no rub and no gallops Cardio Narrative: Having frequent premature beats at the time of DC from rehab.......but, not in AF. When he has been in AD when on rehab the rate has been well controlled with Metoprolol. GI normal to inspection, nondistended, normoactive bowel sounds, soft to palpation and non-tender GI Narrative: No guarding with palpation. no CVA tenderness Narrative: PVR's X 3 at admission were all less than 200. Back/Spine no CVA tenderness Back/Spine Narrative: No pain with palpation or percussion over the thoracic or lumbar vertebrae Extremity no calf tenderness Extremity Narrative: He has no ankle edema at the time of DC from rehab. I recommended he continue to use compression stockings and also continue to adhere to a low salt diet. General Extremity: Negative for clubbing or cyanosis Skin no rashes or lesions noted Skin Narrative: Sutures have been removed from the laceration on the R palm. There is no dehiscence and no discharge. There is no erythema and he has no pain with palpation around the laceration. He has intact sensation. The swelling is much improved. General Skin Exam: no breakdown Rashes: no rashes Neuro oriented x3, CN's II-XII intact bilaterally, moves all extremities and no focal motor deficits Psych mental status grossly normal, thought process normal, cooperative, affect normal and speech normal Psych Narrative: Sleeping well at night and has good appetite. Making good eye contact with people speaking with him. Appearance: grossly normal, appropriate and well kempt Attitude: calm, engaged and No agitated Activity / Motor Behavior: appropriate eye contact Mood & Affect: euthymic mood; Negative for depressed, anxious or flat affect Thought Content: No suicidality and No hallucination(s) Weight / BMI Weight Weight: 253 lb 12.033 oz Body Mass Index (BMI) 35.4 ABG / Lab / Microbiology Data 07/17/25 08:10 07/17/25 08:10 Laboratory: Laboratory Results - last 24 hr 07/17/25 08:10: Hgb 11.6 L, Hct 36.1 L, Sodium 138, Potassium 4.7, Chloride 102, Carbon Dioxide 22.3, Anion Gap 14, BUN 36 H, Creatinine 1.15, Estim Creat Clear Calc 68.30, Est GFR (MDRD) Non-Af 65, BUN/Creatinine Ratio 31.5 H, Glucose 123 H, Calcium 9.7 Microbiology: Microbiology 07/12/25 18:53 Stool Stool Occult Blood (AMARJIT) - Final Occult Blood Positive 07/07/25 11:44 Wound - Finger Gram Stain - Final 07/07/25 11:44 Wound - Finger Wound Culture - Final Staphylococcus aureus Coag Negative Staph D/C Instructions Weight Bearing Status: Full weight bearing Keep extremity elevated above heart level: Left Arm Additional Activity Instructions: No weight bearing with the L arm.......elevated when seated to help control edema Call your doctor if your incision/area has: Continuous Slow Oozing, Sudden Increased Bleeding, Increased Pain/ Swelling, Increased Redness, Foul Smelling Discharge, Swelling at the incision site and - (You will follow up with Dr. Hou in the wound care center following DC for the laceration to the R hand. ) Call your doctor if you observe: Fever of 101 or Higher, Shortness of breath, Dizziness, Fainting spells, Swelling in the ankles, Chest pain, Increased palpitations (irregular heartbeat), Calf discomfort and Uncontrolled pain Suture Line Care: Avoid Pulling/Pushing and Avoid Pinching/Bending Cleanse incision/area with: Soap & Water and - DC O2, CPAP, BIPAP Needs Home O2 Discharge instructions: Yes Type of respiratory needs?: Oxygen Oxygen frequency: With Sleeping (the overnight trending pulse ox from 07/16/25 was reviewed. He does desaturate with sleeping and I agree with the findings on the report. SW to arrange home O2. sleep study ordered for the night of the and then he will follow up with pulmonary medicine to review the results. ) Oxygen liters per minute when sleepin DC home with Oxygen: Yes Home O2 MD Review: I have reviewed the oxygen testing, and the patient qualifies for home oxygen equipment and portability. The patient is mobile in the home and the community. Pending Tests Upon Discharge: none When: Appts have been made for you with Dr. Hou and Dr. Rivera and they are listed later in this document. Meaningful Use Info Meaningful Use Meaningful Use Diagnoses (Choose all that apply): None applicable Discharge Plan Admission Admit Date/Time: 07/06/25 15:33 Primary Reason for Your Visit: Debility due to fall/fx L humerus. Attending Provider: Lois Oconnor Primary Care Provider: Billy Brgaa Consulting Providers: Kandi Hou Instructions Patient Instructions: Understanding Oxygen Therapy, What Are Snoring and Sleep Apnea?, Caring for Your Incision, ED Low-Salt Diet Additional Instructions / Restrictions: 1. You are no longer taking Amlodipine. Your BP was on the low side and I stopped it. your BP is well controlled without the Amlodipine. One of the biggest side effects of Amlodipine is swelling in the ankles. you had no swelling in the ankles on the day of discharge from rehab......on no diuretic and no amlodipine. Ankles become swollen when we eat too much salt. You have been on a salt restricted diet while on rehab. If you go home and increase your salt intake the swelling may come back......salt causes fluid retention. It also can increase BP. Before you will ever see swelling in the legs from fluid retention your weight will start increasing. I want you to start weighing yourself every morning after using the restroom with no close on and keep a record of what the daily weights are. If your weight increases by 5 pounds or more in 5 to 7 days then take 1 Lasix daily until your weight is back to baseline. Baseline will be whatever you weight Sunday morning. 2. Be careful with that R hand.......it is healing but, as we get older we heal more slowly. Even when it looks healed on top it will not be healed completely underneath. Dr. Hou wants to see you in the wound care center on 07/25/25. If it breaks open or there is pus or increasing redness or increasing pain/swelling before then call his office for advice. 3. I think the reason you have not been feeling rested in the mornings when you get up and the restless legs and the frequent napping is you probably have sleep apnea. You have done much better since you have been using the oxygen when you are sleeping. You will need to follow up with a pulmonary doctor or a doctor who specializes in sleep disorders if the sleep study shows that you have sleep apnea. I am sure the [facility] has someone you can see for this. 4. You are scheduled to see Dr. Rivera.......he is an orthopedic doctor. The fracture of the Left upper arm bone (humerus) will heal.....it takes longer because you are older now. Sometimes even after it heals you may have continued pain and sometimes the range of motion will not be the same after this type of fracture. If that is the case you may need to have a shoulder replacement. Dr. Rivera will discuss options with you. He will also likely get an XRAY at the appt to see if it is showing evidence of healing. 5. You have a chronic mild anemia. We checked your stool for blood and it does have microscopic blood in it. This is not uncommon in people who are chronically on blood thinners. You may want to discuss this with your primary care doctor. If you have not had a colonoscopy in the past 5 years you may want to consider getting this done to make sure there is not a problem in the colon......like a polyp or a tumor. We check your iron tests while you were in the hospital and they were normal. 6. It has been a pleasure meeting you and Tana. If wither of you has any questions after you leave rehab please do not hesitate to call me. OFFICE: [phone] CELL: [phone] NURSES STATION ON REHAB: [phone] Discharge Orders/Prescriptions Prescriptions: New acetaminophen 500 mg Tablet 1,000 mg PO Q8 PRN (Reason: fever/pain) Qty: 1 0RF oxycodone 5 mg Tablet 5 mg PO Q4H PRN PRN (Reason: pain 4-10) 7 Days Qty: 35 0RF Continued metformin 500 MG tablet 500 mg PO DAILY metoprolol tartrate 25 MG tablet 25 mg PO BID cholecalciferol (vitamin D3) [Vitamin D3] 2,000 UNIT capsule 2,000 unit PO DAILY aspirin 81 mg capsule 81 mg PO DAILY levothyroxine [Synthroid] 75 mcg tablet 75 mcg PO DAILY atorvastatin [Lipitor] 10 mg tablet 10 mg PO QHS lisinopril 10 mg tablet 5 mg PO DAILY tamsulosin 0.4 mg capsule 0.4 mg PO DAILY Eliquis 5 mg tablet 5 mg PO BID Changed furosemide [Lasix] 40 mg tablet 20 mg PO DAILY PRN (Reason: fluid) Qty: 30 0RF Rx Instructions: take as needed for increase in dipti of > 5 lbs in 5 days Discontinued amlodipine 2.5 mg tablet 2.5 mg PO DAILY oxycodone 5 mg Tablet 5 mg PO Q4H PRN (Reason: Pain Score 1-10) Referrals / Follow Up: Wound Center [Other] - 07/27/25 1:00 pm Referral Note: [address] Billy Braga DO [Primary Care Provider, Family Practice] Referral Note: office will call with appt. Umer Rivera MD [Med Staff - Active Staff, Orthopedics] - 07/20/25 1:00 pm Disposition Disposition (needs filled in before D/C Order can be placed): Home Health Service Charges/Coding Visit Charges Inpatient E&M: 91887 Disch Hosp >30min
[2025-07-17 18:00] VITALS: BP 113/57; PULSE 52; RESP 16; TEMP 36.5; O2SAT 95
[2025-07-17 20:03] VITALS: BP 133/63; PULSE 61
[2025-07-17 20:05] VITALS: BP 133/63; PULSE 61; RESP 17; TEMP 36.4; O2SAT 98
== END 2025-07-17 20:15 | disposition home health service (06) | DRG 560 ==
PROVIDERS: Admitting Provider Internal Medicine; Visit Provider Internal Medicine
DX: S42.222D 2-part displaced fracture of surgical neck of left humerus, subsequent encounter for fracture with routine healing (principal); L03.113 Cellulitis of right upper limb; D53.9 Nutritional anemia, unspecified; B95.61 Methicillin susceptible Staphylococcus aureus infection as the cause of diseases classified elsewhere; E11.22 Type 2 diabetes mellitus with diabetic chronic kidney disease; E03.9 Hypothyroidism, unspecified; G25.81 Restless legs syndrome; I48.0 Paroxysmal atrial fibrillation; N18.30 Chronic kidney disease, stage 3 unspecified; I12.9 Hypertensive chronic kidney disease with stage 1 through stage 4 chronic kidney disease, or unspecified chronic kidney disease; E66.812 Obesity, class 2; Z95.2 Presence of prosthetic heart valve; I25.10 Atherosclerotic heart disease of native coronary artery without angina pectoris; G47.33 Obstructive sleep apnea (adult) (pediatric); E87.5 Hyperkalemia; E78.5 Hyperlipidemia, unspecified; W10.9XXD Fall (on) (from) unspecified stairs and steps, subsequent encounter; E80.6 Other disorders of bilirubin metabolism; R19.5 Other fecal abnormalities; S09.90XD Unspecified injury of head, subsequent encounter; S61.411D Laceration without foreign body of right hand, subsequent encounter; Z79.890 Hormone replacement therapy; Z79.01 Long term (current) use of anticoagulants; Z68.36 Body mass index [BMI] 36.0-36.9, adult; Z87.891 Personal history of nicotine dependence; Z79.84 Long term (current) use of oral hypoglycemic drugs; Z95.1 Presence of aortocoronary bypass graft; N40.0 Benign prostatic hyperplasia without lower urinary tract symptoms; Z79.899 Other long term (current) drug therapy; Z79.82 Long term (current) use of aspirin
CPT/HCPCS: 36415; 80048; 80053; 82248; 82274; 82306; 82728; 82746; 82962; 83010; 83036; 83540; 83550; 83615; 83735; 83880; 84100; 84443; 85014; 85018; 85025; 85027; 85045; 87070; 87077; 87186; 87205; 87640; 94762; 97110; 97112; 97116; 97162; 97167; 97530; 97535; 97802; 97803; A4216

== ENCOUNTER → 2025-07-17 | Outpatient (CLI) | payer MEDICARE, SELFPAY ==
--- OUTSIDE RECORDS SUMMARY | 2025-07-17 20:10 | XMS RPT_ITS | CCD ---
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 Billy Braga DO Primary Care Provider Dr. Mj Nog DO Emergency Provider Dr. Randy Gibson DO Emergency Provider Layne RUSSO, Dr. Amarilis Soto Attending Provider Dr. Amarilis Tillman MD Admit Provider Layne RUSSO, Dr. Amarilis Soot Other Provider Umer Rivera MD Other Provider Dr. Jerrell Esquivel DO Attending Provider Dr. Tigre Figueroa MD Other Provider Unavailable Umer Rivera MD Attending Provider [phone] Tigre Figueroa MD Attending Provider Unavaila Dr. Jerrell Sandoval DO Other Provider Umer Rivera Consulting Unavailable Billy Braga Primary Care Unavailable Amarilis Tillman Admitting Unavailable Tigre Figueroa Attending Unavailable Amarilis Tillman Consulting Unavailable Tigre Figueroa Consulting Unavailable Billy Braga Primary Care Unavailable Billy Braga Referring Unavailable Alejandra Hernandez Attending Unavailable Kandi Hou Unavailable Lois Oconnor Attending Unavaila ble [facility] Primary Care Unavailable SemenLois solis Admitting Unavaila Umer Stephenson Attending Unavailable Billy Braga Primary Care Unavailable Mj Ngo Attending Unavailable Jerrell Esquivel Attending Unavailable Jerrell Esquivel Consulting Unavailable Umer Rivera Attending Unavailable Billy Braga Referring Unavailable Billy Braga Primary Care Unavailable SemenLois solis Referring Unavaila ble SemenLois solis Attending Unavaila ble Billy Braga Primary Care Unavailable Umer Rivera Consulting Unavailable Jerrell Esquivel Attending Unavailable Billy Braga Primary Care Unavailable Amarilis Tillman Admitting Unavailable Amarilis Tillman Consulting Unavailable Tigre Figueroa Consulting Unavailable Maria LuzBilly montaño Primary Care Unavailable Lois Oconnor Consulting Unavaila Armen Gibson Attending Unavailable Lois Oconnor Referring Unavaila Amarilis Hampton Attending Unavailable Billy Braga Primary Care Unavailable Allergies Allergy Classification Reported Allergen(s) Allergy Type Date of Onset Reaction(s) Facility (4 sources) Penicillins Allergy to substance 12-26-2022 Other [facility] (1 source) Penicillins Drug allergy (disorder) 07-03-2025 [facility] Repository Medications Current Medications Medication Drug Class(es) [...] SUPPLEMENT docusate sodium 50 mg / sennosides, half-way 8.6 mg oral tablet (1 source) Start: [...] Start: 07-03-2025 take 1 tablet by hubert once daily Lisinopril 10 mg tablet Active 10 mg PO DAILY July 03, 2025 12:00am metFORMIN hydrochloride 500 mg oral tablet (4 sources) Biguanide Start: 02-21-2018 take 1 tablet by mouth once daily Metformin 500 MG tablet Active 500 mg PO DAILY February 21, 2018 12:00am DIABETES Start: 02-21-2018 take 1 tablet by hubert twice daily at mealtime Metformin 500 MG [...] AFIB Problems Problem Classification Problem Date Documented Da te Episodic/Chronic Cardiac dysrhythmias (1 source) Paroxysmal atrial fibrillation; Translations: [Paroxysmal atrial fibrillation] Onset: 07-17-2025 Chronic Congestive heart failure; nonhypertensive (4 sources) Congestive heart failure; Translations: [Heart failure, unspecified] 12-26-2022 Chronic Coronary atherosclerosis and other heart disease (5 sources) Calcific coronary arteriosclerosis; Translations: [Coronary atherosclerosis due to calcified coronary lesion] Onset: 07-17-2025 03-26-2018 Chronic Coronary atherosclerosis and other heart disease (1 source) Presence of aortocoronary bypass graft; Translations: [Presence of aortocoronary bypass graft] Onset: 07-17-2025 Episodic Deficiency and other anemia (1 source) Anemia, unspecified; Translations: [Anemia, unspecified] Onset: 07-17-2025 Episodic Diabetes mellitus without complication (1 source) Type 2 diabetes mellitus without complications; Translations: [Type 2 diabetes mellitus without complications] Onset: 07-17-2025 Chronic Disorders of lipid metabolism (1 source) Hyperlipidemia, unspecified; Translations: [Hyperlipidemia, unspecified] Onset: 07-17-2025 Chronic Essential hypertension (1 source) Essential (primary) hypertension; Translations: [Essential (primary) hypertension] Onset: 07-17-2025 Chronic Fluid and electrolyte disorders (1 source) Hyperkalemia; Translations: [Hyperkalemia] Onset: 07-17-2025 Episodic Fracture of upper limb (8 sources) Fracture of humerus ; Translations: [Unspecified fracture of shaft of humerus, left arm, initial encounter for closed fracture] Onset: 07-06-2025 07-04-2025 Episodic Heart valve disorders (1 source) Presence of prosthetic heart valve; Translations: [Presence of prosthetic heart valve] Onset: 07-17-2025 Chronic Malaise and fatigue (1 source) Other malaise; Translations: [Other malaise] Onset: 07-17-2025 Episodic Open wounds of extremities (5 sources) Laceration of hand; Translations: [Laceration without foreign body of unspecified hand, initial encounter] Onset: 07-17-2025 07-03-2025 Episodic Osteoarthritis (4 sources) Osteoarthritis of right knee joint; Translations: [Unilateral primary osteoarthritis, right knee] 03-01-2022 Chronic Other aftercare (1 source) roasterman (current) use of anticoagulants; Translations: [[facility] (current) use of anticoagulants] Onset: 07-17-2025 Episodic Other connective tissue disease (3 sources) Hand pain; Translations: [Pain in right hand] 07-03-2025 Episodic Other connective tissue disease (1 source) Repeated falls; Translations: [Repeated falls] Onset: 07-17-2025 Episodic Other gastrointestinal disorders (1 source) Other fecal abnormalities; Translations: [Other fecal abnormalities] Onset: 07-17-2025 Episodic Other hereditary and degenerative nervous system conditions (1 source) Restless legs syndrome; Translations: [Restless legs syndrome] Onset: 07-17-2025 Chronic Other injuries and conditions due to external causes (3 sources) Closed injury of head; Translations: [Unspecified injury of head, initial encounter] 07-03-2025 Episodic Other injuries and conditions due to external causes (1 source) Unspecified injury of head, subsequent encounter; Translations: [Unspecified injury of head, subsequent encounter] Onset: 07-17-2025 Episodic Other lower respiratory disease (4 sources) Dyspnea; Translations: [Dyspnea, unspecified] 12-26-2022 Episodic Other non-traumatic joint disorders (4 sources) Pain in right knee; Translations: [Right knee pain] 03-01-2022 Episodic Other nutritional; endocrine; and metabolic disorders (1 source) Other disorders of bilirubin metabolism; Translations: [Other disorders of bilirubin metabolism] Onset: 07-17-2025 Chronic Other nutritional; endocrine; and metabolic disorders (1 source) Morbid (severe) obesity due to excess calories; Translations: [Morbid (severe) obesity due to excess calories] Onset: 07-17-2025 Chronic Other nutritional; endocrine; and metabolic disorders (1 source) Body mass index (BMI) 35.0-35.9, adult; Translations: [Body mass index [BMI] 35.0-35.9, adult] Onset: 07-17-2025 Chronic Other screening for suspected conditions (not mental disorders or infectious disease) (1 source) Other specified abnormal findings of blood chemistry; Translations: [Other specified abnormal findings of blood chemistry] Onset: 07-17-2025 Episodic Residual codes; unclassified (1 source) Sleep apnea, unspecified; Translations: [Sleep apnea, unspecified] Onset: 07-15-2025 Chronic Residual codes; unclassified (1 source) Sleep related hypoventilation in conditions classified elsewhere; Translations: [Sleep related hypoventilation in conditions classified elsewhere] Onset: 07-17-2025 Chronic Residual codes; unclassified (1 source) Personal history of other medical treatment; Translations: [Personal history of other medical treatment] Onset: 07-17-2025 Episodic Skin and subcutaneous tissue infections (1 source) Cellulitis of right upper limb; Translations: [Cellulitis of right upper limb] Onset: 07-17-2025 Episodic Thyroid disorders (1 source) Hypothyroidism, unspecified; Translations: [Hypothyroidism, unspecified] Onset: 07-17-2025 Chronic Unclassified (1 source) Obesity, class 2; Translations: [Obesity, class 2] Onset: 07-17-2025 Results Test Name Value Interpretation Reference Range Facility Basic Metabolic Profile (BMP )on 07-17-2025 BUN/CRE 31.5 RATIO High 10-20 [facility] Comment on above: Performed By: #### L 100.0600, L500.2500 ####[facility] [address] [place], [address] Calcium [Mass/Vol] 9.7 mg/dL Normal 7.6-11.0 [facility] Comment on above: Performed By: #### L 100.0600, L500.2500 ####[facility] [address] [place], [address] Chloride [Moles/Vol] 102 mmol/L Normal 98-108 [facility] Comment on above: Performed By: #### L 100.0600, L500.2500 ####[facility] [address] [place], [address] CO2 [Moles/Vol] 22.3 mmol/L Normal 21.0-32.0 [facility] Comment on above: Performed By: #### L 100.0600, L500.2500 ####[facility] [address] [place], [address] Creatinine [Mass/Vol] 1.15 mg/dL Normal 0.70-1.[address] [facility] Comment on above: Performed By: #### L 100.0600, L500.2500 ####[facility] [address] [place], [address] ECRCL 68.30 ml/min Normal 50-250 [facility] Comment on above: Performed By: #### L 100.0600, L500.2500 ####[facility] [address] [place], [address] GAP 14 Normal 5-15 [facility] Comment on above: Performed By: #### L 100.0600, L500.2500 ####[facility] [address] [place], [address] GFR/1.73 sq M.predicted among non-blacks MDRD (S/P/Bld) [Vol rate/Area] 65 mL/min/{1.73_m2} Normal >60 [facility] Comment on above: Result Comment: mL/m in/1.73m2 CKD-EPI Creatinine Equation (2020) Performed By: #### L 100.0600, L500.2500 ####[facility] [address] [place], [address] Glucose [Mass/Vol] 123 mg/dL High 70-99 [facility] Comment on above: Performed By: #### L 100.0600, L500.2500 ####[facility] [address] [place], [address] Potassium [Moles/Vol] 4.7 mmol/L Normal 3.3-5.[address] [facility] Comment on above: Result Comment: Hemo lysis present, Results??could be affected. ?? Performed By: #### L 100.0600, L500.2500 ####[facility] [address] [place], [address] Sodium [Moles/Vol] 138 mmol/L Normal 133-145 [facility] Comment on above: Performed By: #### L 100.0600, L500.2500 ####[facility] [address] [place], [address] Urea nitrogen [Mass/Vol] 36 mg/dL High - [facility] Comment on above: Performed By: #### L 100.0600, L500.2500 ####[facility] [address] [place], [address] Discharge Instructionon 06-29 Discharge Instruction [facility] Medical Records Department [address] [place] [address] Instructions for Home/Discharge Instructions 07/17/25 0934 MR#: [id number] Acct: [id number] Name: KANDI GOMEZ Rep #: [id number] : 1945 80 From: Lois Oconnor DO PCP: Dr. Billy Braga, DO Status:ADM IN Discharge Instructions DC O2, CPAP, BIPAP needs Home O2 Discharge instructions: Yes Type of respiratory needs?: Oxygen Oxygen frequency: With Sleeping (the overnight trending pulse ox from 07/16/25 was reviewed. He does desaturate with sleeping and I agree with the findings on the report. SW to arrange home O2. sleep study ordered for the night of the and then he will follow up with pulmonary medicine to review the results. ) Oxygen liters per minute when sleepin Dressing / Incision Discharge Activity: May Shower and - (Use the walking stick when ambulating. ) Weight Bearing Status: Full weight bearing Keep extremity elevated above heart level: Left Arm Additional Activity Instructions:: No weight bearing with the L arm.......elevated when seated to help control edema Dressing / Incision Call your doctor if your incision/area has: Continuous Slow Oozing, Sudden Increased Bleeding, Increased Pain/ Swelling, Increased Redness, Foul Smelling Discharge, Swelling at the incision site and - (You will follow up with Dr. Hou in the wound care center following DC for the laceration to the R hand. ) Call your doctor if you observe: Fever of 101 or Higher, Shortness of breath, Dizziness, Fainting spells, Swelling in the ankles, Chest pain, Increased palpitations (irregular heartbeat), Calf discomfort and Uncontrolled pain Suture Line Care: Avoid Pulling/Pushing and Avoid Pinching/Bending Cleanse incision/area with: Soap Water and - Follow Up Care When: Appts have been made for you with Dr. Hou and Dr. Rivera and they are listed later in this document. Test Results: Test results from this visit will be discussed in further detail at your follow-up appointment, if applicable. Pending Tests Upon Discharge: none Discharge Plan Admission Admit Date/Time: 07/06/25 15:33 Primary Reason for Your Visit: Debility due to fall/fx L humerus. Attending Provider: Lois Oconnor Primary Care Provider: Billy Braga Consulting Providers: Kandi Hou Instructions Patient Instructions: Understanding Oxygen Therapy, What Are Snoring and Sleep Apnea?, Caring for Your Incision, ED Low-Salt Diet Additional Instructions / Restrictions: 1. You are no longer taking Amlodipine. Your BP was on the low side and I stopped it. your BP is well controlled without the Amlodipine. One of the biggest side effects of Amlodipine is swelling in the ankles. you had no swelling in the ankles on the day of discharge from rehab......on no diuretic and no amlodipine. Ankles become swollen when we eat too much salt. You have been on a salt restricted diet while on rehab. If you go home and increase your salt intake the swelling may come back......salt causes fluid retention. It also can increase BP. Before you will ever see swelling in the legs from fluid retention your weight will start increasing. I want you to start weighing yourself every morning after using the restroom with no close on and keep a record of what the daily weights are. If your weight increases by 5 pounds or more in 5 to 7 days then take 1 Lasix daily until your weight is back to baseline. Baseline will be whatever you weight Sunday morning. 2. Be careful with that R hand.......it is healing but, as we get older we heal more slowly. Even when it looks healed on top it will not be healed completely underneath. Dr. Hou wants to see you in the wound care center on 07/25/25. If it breaks open or there is pus or increasing redness or increasing pain/swelling before then call his office for advice. 3. I think the reason you have not been feeling rested in the mornings when you get up and the restless legs and the frequent napping is you probably have sleep apnea. You have done much better since you have been using the oxygen when you are sleeping. You will need to follow up with a pulmonary doctor or a doctor who specializes in sleep disorders if the sleep study shows that you have sleep apnea. I am sure the [place] has someone you can see for this. 4. You are scheduled to see Dr. Rivera.......he is an orthopedic doctor. The fracture of the Left upper arm bone (humerus) will heal.....it takes longer because you are older now. Sometimes even after it heals you may have continued pain and sometimes the range of motion will not be the same after this type of fracture. If that is the case you may need to have a shoulder replacement. Dr. Rivera will discuss options with you. He will also likely get an X[facility] at [facility] to see if it is showing evidence of healing. 5. You have a chronic mild anemia (more content not included)... Normal [facility] HH, Hemoglobin AND Hematocri ton 07-17-2025 Hematocrit (Bld) [Volume fraction] 36.1 % Low 40-54 [facility] Comment on above: Performed By: #### L 100.0600, L500.2500 ####[facility] [address] [place], [address] Hemoglobin (Bld) [Mass/Vol] 11.6 g/dL Low 13.0-16.5 [facility] Comment on above: Performed By: #### L 100.0600, L500.2500 ####[facility] [address] [place], [address] Ferritinon 07-16-2025 Ferritin [Mass/Vol] 143 ng/mL Normal 37-417 [facility] Comment on above: Performed By: #### L 503.6550, L503.6030 ####[facility] [address] [place], [address] Iron+Iron Binding Capacityon 07-16-2025 Iron [Mass/Vol] 61 ug/dL Low 65-175 [facility] Comment on above: Performed By: #### L 503.6550, L503.6030 ####[facility] [address] [place], [address] IRON SATURATION 21.7 Normal 9-55 [facility] Comment on above: Performed By: #### L 503.6550, L503.6030 ####[facility] [address] [place], [address] TIBC 282 ug/dL Normal 250-450 [facility] Comment on above: Performed By: #### L 503.6550, L503.6030 ####[facility] [address] [place], [address] UIBC 221 ug/dL Low 228-428 [facility] Comment on above: Performed By: #### L 503.6550, L503.6030 ####[facility] [address] [place], [address] Basic Metabolic Profile (BMP )on 07-14-2025 BUN/CRE 36.2 RATIO High 10-20 [facility] Comment on above: Performed By: #### L 501.080 #### [facility] [address] [place], [address] Calcium [Mass/Vol] 9.8 mg/dL Normal 7.6-11.0 [facility] Comment on above: Performed By: #### L 501.080 #### [facility] [address] [place], [address] Chloride [Moles/Vol] 102 mmol/L Normal 98-108 [facility] Comment on above: Performed By: #### L 501.080 #### [facility] [address] [place], [address] CO2 [Moles/Vol] 26.5 mmol/L Normal 21.0-32.0 [facility] Comment on above: Performed By: #### L 501.080 #### [facility] [address] [place], [address] Creatinine [Mass/Vol] 1.25 mg/dL High 0.70-1.[address] [facility] Comment on above: Performed By: #### L 501.080 #### [facility] [address] [place], [address] ECRCL 63.45 ml/min Normal 50-250 [facility] Comment on above: Performed By: #### L 501.080 #### [facility] [address] [place], [address] GAP 11 Normal 5-15 [facility] Comment on above: Performed By: #### L 501.080 #### [facility] [address] [place], [address] GFR/1.73 sq M.predicted among non-blacks MDRD (S/P/Bld) [Vol rate/Area] 59 mL/min/{1.73_m2} Low >60 [facility] Comment on above: Result Comment: mL/m in/1.73m2 CKD-EPI Creatinine Equation (2020) Performed By: #### L 501.080 #### [facility] [address] [place], [address] Glucose [Mass/Vol] 128 mg/dL High 70-99 [facility] Comment on above: Performed By: #### L 501.080 #### [facility] [address] [place], [address] Potassium [Moles/Vol] 4.7 mmol/L Normal 3.3-5.[address] [facility] Comment on above: Performed By: #### L 501.080 #### [facility] [address] [place], [address] Sodium [Moles/Vol] 140 mmol/L Normal 133-145 [facility] Comment on above: Performed By: #### L 501.080 #### [facility] [address] [place], [address] Urea nitrogen [Mass/Vol] 45 mg/dL High 4-19 [facility] Comment on above: Performed By: #### L 501.080 #### [facility] [address] [place], [address] Basic Metabolic Profile (BMP )on 07-13-2025 BUN/CRE 40.1 RATIO High 10-20 [facility] Comment on above: Performed By: #### L 501.080 #### [facility] [address] [place], [address] Calcium [Mass/Vol] 9.5 mg/dL Normal 7.6-11.0 [facility] Comment on above: Performed By: #### L 501.080 #### [facility] [address] [place], [address] Chloride [Moles/Vol] 102 mmol/L Normal 98-108 [facility] Comment on above: Performed By: #### L 501.080 #### [facility] [address] [place], [address] CO2 [Moles/Vol] 28.5 mmol/L Normal 21.0-32.0 [facility] Comment on above: Performed By: #### L 501.080 #### [facility] [address] [place], [address] Creatinine [Mass/Vol] 1.40 mg/dL High 0.70-1.[address] [facility] Comment on above: Performed By: #### L 501.080 #### [facility] [address] [place], [address] ECRCL 56.18 ml/min Normal 50-250 [facility] Comment on above: Performed By: #### L 501.080 #### [facility] [address] [place], [address] GAP 9 Normal 5-15 [facility] Comment on above: Performed By: #### L 501.080 #### [facility] [address] [place], [address] GFR/1.73 sq M.predicted among non-blacks MDRD (S/P/Bld) [Vol rate/Area] 51 mL/min/{1.73_m2} Low >60 [facility] Comment on above: Result Comment: mL/m in/1.73m2 CKD-EPI Creatinine Equation (2020) Performed By: #### L 501.080 #### [facility] [address] [place], [address] Glucose [Mass/Vol] 128 mg/dL High 70-99 [facility] Comment on above: Performed By: #### L 501.080 #### [facility] [address] [place], [address] Potassium [Moles/Vol] 5.2 mmol/L High 3.3-5.[address] [facility] Comment on above: Performed By: #### L 501.080 #### [facility] [address] [place], [address] Sodium [Moles/Vol] 140 mmol/L Normal 133-145 [facility] Comment on above: Performed By: #### L 501.080 #### [facility] [address] [place], [address] Urea nitrogen [Mass/Vol] 56 mg/dL High 4-19 [facility] Comment on above: Performed By: #### L 501.080 #### [facility] [address] [place], [address] CBC-Complete Blood Cnt No Di ffon 07-13-2025 Erythrocyte distribution width (RBC) [Ratio] 13.8 % Normal 11.6-14.6 [facility] Comment on above: Performed By: #### L 501.080 #### [facility] [address] [place], [address] Hematocrit (Bld) [Volume fraction] 34.6 % Low 40-54 [facility] Comment on above: Performed By: #### L 501.080 #### [facility] [address] [place], [address] Hemoglobin (Bld) [Mass/Vol] 10.7 g/dL Low 13.0-16.5 [facility] Comment on above: Performed By: #### L 501.080 #### [facility] [address] [place], [address] MCH (RBC) [Entitic mass] 31.1 pg Normal 27.0-32.0 [facility] Comment on above: Performed By: #### L 501.080 #### [facility] [address] [place], [address] MCHC (RBC) [Mass/Vol] 30.9 g/dL Low 32-[address] [facility] Comment on above: Performed By: #### L 501.080 #### [facility] [address] [place], [address] MCV (RBC) [Entitic vol] 100.6 fL High 80-94 [facility] Comment on above: Performed By: #### L 501.080 #### [facility] [address] [place], [address] Platelet mean volume (Bld) [Entitic vol] 8.9 fL Normal 6.2-12.0 [facility] Comment on above: Performed By: #### L 501.080 #### [facility] [address] [place], [id number] Platelets (Bld) [#/Vol] 314 10*3/uL Normal 150-450 [facility] Comment on above: Performed By: #### L 501.080 #### [facility] [address] [place], [id number] RBC (Bld) [#/Vol] 3.44 10*6/uL Low 4.6-6.2 [facility] Comment on above: Performed By: #### L 501.080 #### [facility] [address] [place], [address] RDW SD 51.1 fl High 35.1-43.9 [facility] Comment on above: Performed By: #### L 501.080 #### [facility] [address] [place], [id number] WBC (Bld) [#/Vol] 9.5 10*3/uL Normal 4.4-11.0 [facility] Comment on above: Performed By: #### L 501.080 #### [facility] [address] [place], [id number] Magnesiumon 07-13-2025 Magnesium [Mass/Vol] 2.2 mg/dL Normal 1.5-2.2 [facility] Comment on above: Performed By: #### L 501.080 #### [facility] [address] [place], [place], [address] Pro- Brain NATRIURETIC PEPTI Peg 07-13-2025 Natriuretic peptide B (Bld) [Mass/Vol] 519 pg/mL Normal <=1800 [facility] Comment on above: Order Comment: MG3 1 BMG3 4 D Result Comment: Hear t Failure Unlikely: < 300 pg/mL Heart Failure Likely < 50 Years: > 450 pg/mL 50-75 Years: > 900 pg/mL >75 Years: > 1800 pg/mL Performed By: #### L 503.7505 ####[facility] [address] [place], [place], [id number] Stool Occult Blood iFOBon STOB Positive Normal [facility] Comment on above: Performed By: #### L 501.080 #### [facility] [address] [place], [place], [id number] Wound Cultureon 07-11-2025 WC Wound Culture #2 Possible skin contamination, further Identification and sensitivity will be performed only by physician's request. Wound Culture Staphylococcus aureus Amount Growth 1+ Coag Negative Staph Coag Negative Staph Staphylococcus aureus: REACTION cefOXitin Susc Islt NEG Doxycycline Islt AMARJIT <=0.5 Clindamycin Islt AMARJIT 0.25 S Clindamycin.induced Susc Islt NEG Erythromycin Islt AMARJIT <=0.25 S Gentamicin Islt AMARJIT <=0.5 S Linezolid Islt AMARJIT 2 S Moxifloxacin Islt AMARJIT <=0.25 S Oxacillin Susc Islt 0.5 S Tetracycline Islt AMARJIT <=1 S TMP SMX Islt AMARJIT <=10 S Vancomycin Islt AMARJIT 1 S Normal [facility] Comment on above: Performed By: #### L 501.080 #### [facility] [address] [place], [place], [address] Bedside Glucoseon 07-09-2025 FINGERSTICK GLU 135 mg/dL High 74-106 [facility] Comment on above: Result Comment: ROBEL BREWER OF PATIENT CARE PER NURSING PROTOCOL Performed By: #### L 501.080 ####[facility] [address] [place], [address] Gram Stainon 07-09-2025 GS Gram Stain 1+ Gram negative rods Rare White Blood Cells Rare Gram positive cocci Normal [facility] Comment on above: Performed By: #### L 501.080 #### [facility] [address] [place], [address] Bedside Glucoseon 07-08-2025 FINGERSTICK GLU 140 mg/dL High 74-106 [facility] Comment on above: Result Comment: ROBEL GEMENT OF PATIENT CARE PER NURSING PROTOCOL Performed By: #### L 501.9520, L3100.1850, L501.4700, L501.9985, L506.1001, L504.2610, L100.9950 #### [facility] [address] [facility] [address] FINGERSTICK GLU 131 mg/dL High 74-106 [facility] Comment on above: Result Comment: ROBEL GEMENT OF PATIENT CARE PER NURSING PROTOCOL Performed By: #### L 501.080 #### [facility] [address] [place], [address] FINGERSTICK GLU 127 mg/dL High 74-106 [facility] Comment on above: Result Comment: ROBEL GEMENT OF PATIENT CARE PER NURSING PROTOCOL Performed By: #### L 501.080 ####[facility] [address] [place], [address] FINGERSTICK GLU 139 mg/dL High 74-106 [facility] Comment on above: Result Comment: ROBEL GEMENT OF PATIENT CARE PER NURSING PROTOCOL Performed By: #### L 501.080 #### [facility] [address] [place], [address] Haptoglobinon 07-08-2025 HAPTOGLOBIN 241 mg/dL Normal 34-355 [facility] Comment on above: Result Comment: Perf ormed at: - [facility] [address], [place] [id number] Local Telephone Operator: Christopher Higgins PhD, Phone: [phone] Performed By: #### L 501.9520, L3100.1850, L501.4700, L501.9985, L506.1001, L504.2610, L100.9950 ####[facility] [address] [place], [address] Bedside Glucoseon 07-07-2025 FINGERSTICK GLU 140 mg/dL High [address] [place] [address] Comment on above: Result Comment: ROBEL GEMENT OF PATIENT CARE PER NURSING PROTOCOL Performed By: #### L 501.080 #### [facility] [address] [place], [address] FINGERSTICK GLU 141 mg/dL High [address] [place] [address] Comment on above: Result Comment: ROBEL GEMENT OF PATIENT CARE PER NURSING PROTOCOL Performed By: #### L 501.080 #### [facility] [address] [place], [address] FINGERSTICK GLU 137 mg/dL High [address] [place] [address] Comment on above: Result Comment: ROBEL GEMENT OF PATIENT CARE PER NURSING PROTOCOL Performed By: #### L 501.080 #### [facility] [address] [place], [address] FINGERSTICK GLU 135 mg/dL High [address] [place] [address] Comment on above: Result Comment: ROBEL GEMENT OF PATIENT CARE PER NURSING PROTOCOL Performed By: #### L 501.080 #### [facility] [address] [place], [address] Bilirubin, Directon 07-07-20 25 Bilirubin.direct [Mass/Vol] 0.95 mg/dL High 0.00-0.30 [facility] Comment on above: Performed By: #### L 501.9520, L3100.1850, L501.4700, L501.9985, L506.1001, L504.2610, L100.9950 #### [facility] [address] [place], [address] CBC W/Diff, Automatedon 09-0 9-2025 Absolute Lymph 0.80 X10 3/uL Low 0.83-4.51 [facility] Comment on above: Performed By: #### L 501.080 #### [facility] [address] [place], [address] Absolute Neut 6.8 X10 3/uL Normal 2.0-7.7 [facility] Comment on above: Performed By: #### L 501.080 #### [facility] [address] [place], [address] Basophils/100 WBC (Bld) 0.6 % Normal 0-1 [facility] Comment on above: Performed By: #### L 501.080 #### [facility] [address] [place], [address] Eosinophils/100 WBC (Bld) 3.0 % Normal 0-5 [facility] Comment on above: Performed By: #### L 501.080 #### [facility] [address] [place], [address] Erythrocyte distribution width (RBC) [Ratio] 13.9 % Normal 11.6-14.6 [facility] Comment on above: Performed By: #### L 501.080 #### [facility] [address] [place], [address] Hematocrit (Bld) [Volume fraction] 35.7 % Low 40-54 [facility] Comment on above: Performed By: #### L 501.080 #### [facility] [address] [place], [address] Hemoglobin (Bld) [Mass/Vol] 11.5 g/dL Low 13.0-16.5 [facility] Comment on above: Performed By: #### L 501.080 #### [facility] [address] [place], [id number] IG% 0.700 Normal 0.0-0.9 [facility] Comment on above: Result Comment: IG% - Immature Granulocytes (promyelocytes, myelocytes and metamyelocytes) > 1% indicates that a LEFT SHIFT is Present. Performed By: #### L 501.080 #### [facility] [address] [place], [address] Lymphocytes/100 WBC (Bld) 8.8 % Low 19-41 [facility] Comment on above: Performed By: #### L 501.080 #### [facility] [address] [place], [address] MCH (RBC) [Entitic mass] 31.5 pg Normal 27.0-32.0 [facility] Comment on above: Performed By: #### L 501.080 #### [facility] [address] [place], [address] MCHC (RBC) [Mass/Vol] 32.2 g/dL Normal 32-[address] [facility] Comment on above: Performed By: #### L 501.080 #### [facility] [address] [place], [address] MCV (RBC) [Entitic vol] 97.8 fL High 80-94 [facility] Comment on above: Performed By: #### L 501.080 #### [facility] [address] [place], [address] Monocytes/100 WBC (Bld) 11.8 % High 0-10 [facility] Comment on above: Performed By: #### L 501.080 #### [facility] [address] [place], [address] Neutrophils/100 WBC (Bld) 75.1 % High 47-70 [facility] Comment on above: Performed By: #### L 501.080 #### [facility] [address] [place], [address] Nucleated RBC (Bld) [#/Vol] 0 10*3/uL Normal 0-5 [facility] Comment on above: Performed By: #### L 501.080 #### [facility] [address] [place], [address] Platelet mean volume (Bld) [Entitic vol] 9.4 fL Normal 6.2-12.0 [facility] Comment on above: Performed By: #### L 501.080 #### [facility] [address] [place], [address] Platelets (Bld) [#/Vol] 312 10*3/uL Normal 150-450 [facility] Comment on above: Performed By: #### L 501.080 #### [facility] [address] [place], [address] RBC (Bld) [#/Vol] 3.65 10*6/uL Low 4.6-6.2 [facility] Comment on above: Performed By: #### L 501.080 #### [facility] [address] [place], [address] RDW SD 50.4 fl High 35.1-43.9 [facility] Comment on above: Performed By: #### L 501.080 #### [facility] [address] [place], [address] WBC (Bld) [#/Vol] 9.1 10*3/uL Normal 4.4-11.0 [facility] Comment on above: Performed By: #### L 501.080 #### [facility] [address] [place], [address] Comprehensive Metabolic Prof ilmendoza 07-07-2025 Albumin [Mass/Vol] 3.2 g/dL Low 3.4-4.8 [facility] Comment on above: Performed By: #### L 501.080 #### [facility] [address] [place], [address] Albumin/Globulin [Mass ratio] 1.1 {ratio} Normal 0.9-2.4 [facility] Comment on above: Performed By: #### L 501.080 #### [facility] [address] [place], [address] ALK PHOS 112 U/L Normal 40-129 [facility] Comment on above: Performed By: #### L 501.080 #### [facility] [address] [place], [address] ALT [Catalytic activity/Vol] 12 U/L Normal <=46 [facility] Comment on above: Performed By: #### L 501.080 #### [facility] [address] [place], [address] AST [Catalytic activity/Vol] 15 U/L Normal <=37 [facility] Comment on above: Performed By: #### L 501.080 #### [facility] [address] [place], [address] Bilirubin [Mass/Vol] 1.87 mg/dL High 0.00-1.30 [facility] Comment on above: Performed By: #### L 501.080 #### [facility] [address] [place], [address] BUN/CRE 23.3 RATIO High 10-20 [facility] Comment on above: Performed By: #### L 501.080 #### [facility] [address] [place], [address] Calcium [Mass/Vol] 9.1 mg/dL Normal 7.6-11.0 [facility] Comment on above: Performed By: #### L 501.080 #### [facility] [address] [place], [address] Chloride [Moles/Vol] 106 mmol/L Normal 98-108 [facility] Comment on above: Performed By: #### L 501.080 #### [facility] [address] [place], [address] CO2 [Moles/Vol] 25.1 mmol/L Normal 21.0-32.0 [facility] Comment on above: Performed By: #### L 501.080 #### [facility] [address] [place], [address] Creatinine [Mass/Vol] 1.29 mg/dL High 0.70-1.[address] [facility] Comment on above: Performed By: #### L 501.080 #### [facility] [address] [place], [address] ECRCL 61.37 ml/min Normal 50-250 [facility] Comment on above: Performed By: #### L 501.080 #### [facility] [address] [place], [address] GAP 11 Normal 5-15 [facility] Comment on above: Performed By: #### L 501.080 #### [facility] [address] [place], [address] GFR/1.73 sq M.predicted among non-blacks MDRD (S/P/Bld) [Vol rate/Area] 57 mL/min/{1.73_m2} Low >60 [facility] Comment on above: Result Comment: mL/m in/1.73m2 CKD-EPI Creatinine Equation (2020) Performed By: #### L 501.080 #### [facility] [address] [place], [address] Globulin (S) [Mass/Vol] 2.9 g/dL Normal 2.2-4.2 [facility] Comment on above: Performed By: #### L 501.080 #### [facility] [address] [place], [address] Glucose [Mass/Vol] 136 mg/dL High 70-99 [facility] Comment on above: Performed By: #### L 501.080 #### [facility] [address] [place], [address] Potassium [Moles/Vol] 4.3 mmol/L Normal 3.3-5.[address] [facility] Comment on above: Performed By: #### L 501.080 #### [facility] [address] [place], [address] Sodium [Moles/Vol] 142 mmol/L Normal 133-145 [facility] Comment on above: Performed By: #### L 501.080 #### [facility] [address], [address] T PROT 6.1 g/dL Normal 5.9-8.4 [facility] Comment on above: Performed By: #### L 501.080 #### [facility] [address], [address] Urea nitrogen [Mass/Vol] 30 mg/dL High 4-19 [facility] Comment on above: Performed By: #### L 501.080 #### [facility] [address] [place], [address] Consultation - Surgicalon Consultation - Surgical [facility] Medical Records Department [address] [place] [address] Consultation - Surgical 07/07/25 0951 MR#: [id number] Acct: [id number] Name: KANDI GOMEZ Rep #: [id number] : 1945 80 From: Armen GILES PCP: Dr. Billy Braga, DO Status:ADM IN Location: AW506-4 Assessment Plan Assessment/Plan (1) Complicated laceration of hand: PLAN: Plan Right hand laceration repair appears cellulitic. - Agree with oral Keflex. - Keep incision dry and covered. - Hold off on repeat hand xray for now. No concerns for osteomyelitis at this time. WBC is WNL. - We will reassess the wound tomorrow. HPI Consult Data Date of Consult: 07/07/25 HPI Narrative HPI Narrative: KANDI GOMEZ, is a 80-year-old male with past medical history significant for CAD status post CABG on aspirin 81 mg daily, status post AVR, atrial fibrillation on Eliquis, insulin-dependent type 2 diabetes, hypothyroidism, hyperlipidemia, hypertension who had a mechanical fall on 07/03/2025 onto concrete floor. He denied head trauma or loss of consciousness. He presented to the ED for trauma workup the same day and was noted to have a right hand laceration which was repaired at bedside by ED staff. He then presented to the hospital the following day with complaint of left arm pain was noted to have left humerus fracture and orthopedics was also consulted. Patient was seen at bedside today at the request of Dr. Oconnor due to the right hand laceration appearing macerated and swollen. He was not on any antibiotics prior to his current admission. He denies fevers, chills, numbness, tingling, hand weakness. [facility] Medical History PAF (paroxysmal atrial fibrillation) Obesity Chronic anemia CAD (coronary artery disease) Hypothyroidism Diabetes mellitus type II, controlled HLD (hyperlipidemia) HTN (hypertension) Valvular heart disease Home Medications ???Medication ???Instructions ???Recorded ???Last Taken ???Type metformin 500 mg tablet 500 mg PO DAILY DIABETES 02/21/18 02/21/18 History 500 MG metoprolol tartrate 25 mg tablet 25 mg PO BID BLOOD PRESSURE 07/06/25 History cholecalciferol (vitamin D3) 50 2,000 unit PO DAILY supplement Unknown History mcg (2,000 unit) capsule (Vitamin D3) apixaban 5 mg tablet (Eliquis) 5 mg PO BID prophylaxes 07/03/25 U nknown History aspirin 81 mg capsule 81 mg PO DAILY heart health 07/06/25 History atorvastatin 10 mg tablet (Lipitor) 10 mg PO QHS cholesterol 07/05/25 History furosemide 40 mg tablet (Lasix) 20 mg PO DAILY fluid 07/03/25/06/22 History levothyroxine 75 mcg tablet 75 mcg PO DAILY thyroid 07/03/25 0 07/06/25 History (Synthroid) lisinopril 10 mg tablet 5 mg PO DAILY blood pressure 07/0307/06/25 History tamsulosin 0.4 mg capsule 0.4 mg PO DAILY retention 07/03/25 07/06/25 History amlodipine 2.5 mg tablet 2.5 mg PO DAILY blood pressure 04/2207/06/25 History oxycodone 5 mg tablet 5 mg PO Q4H PRN Pain Score 1-10 07/05/25 History Allergy/AdvReac Type Severity Reaction Status Date / Time Penicillins Allergy Other Verified 07/03/25 06:45 Family History Mother Cancer Father Heart failure Surgical History History of tonsillectomy and adenoidectomy S/P AVR (aortic valve replacement) S/P CABG x 1 Social History household members: spouse housing: house Smoking Status: Former smoker how long ago did patient quit smokin years ago alcohol intake: never substance use type: does not use ROS Constitutional Constitutional: Reports systems reviewed and no addt'l complaints, except as documented and as per HPI Respiratory/Chest Respiratory/Chest: Reports systems reviewed and no addt'l complaints, except as documented Integumentary Integumentary: Reports as per HPI Neurologic Neurologic: Reports as per HPI Physical Exam Narrative Constitutional: Alert and oriented in no acute distress. Right upper extremity: Inspection: Distal laceration repair around the skin fold is macerated with surrounding erythema, edema Palpation: Edematous without fluctuance or active or expressible drainage. Appears cellulitic Motor: Moves MCP, PIP, DIP in all directions. No angulation noted. Sensation: Sensation intact to light touch Vascular: Good perfusion, finger is pink, capillary refill < 2 seconds . Lab / Micro Data 07/07/25 07:16 07/07/25 07:16 Labs: Laboratory Results - last 24 hr 07/06/25 17:01: POC Glucose 137 H 07/06/25 21:05: POC Glucose 154 H 07/07/25 06:1 (more content not included)... Normal [facility] Folates,Serum (Folic Acid)on 07-07-2025 FOLATES,SERUM 16.80 ng/mL Normal 4.60-34.80 [facility] Comment on above: Performed By: #### L 501.080 #### [facility] [address] [place], [address] Hemoglobin A1con 07-07-2025 HbA1c (Bld) [Mass fraction] 6.8 % High <=5.6 [facility] Comment on above: Result Comment: Norm al < 5.7 % Prediabetic 5.7 - 6.4 % Diabetic >or= 6.5 % Please note range changes. Performed By: #### L 501.9520, L3100.1850, L501.4700, L501.9985, L506.1001, L504.2610, L100.9950 #### [facility] [address] [place], [address] LDHon 07-07-2025 LDH 164 U/L Normal 87-241 [facility] Comment on above: Performed By: #### L 501.9520, L3100.1850, L501.4700, L501.9985, L506.1001, L504.2610, L100.9950 #### [facility] [address] [place], [address] MRSA Wound DNA by PCRon MRSA DNA ASSAY Negative Normal Negative [facility] Comment on above: Order Comment: R yadav d Performed By: #### L 501.080 #### [facility] [address] [place], [id number] SA DNA ASSAY Positive Abnormal Negative [facility] Comment on above: Order Comment: R yadav d Performed By: #### L 501.080 #### [facility] [address] [place], [id number] Magnesiumon 07-07-2025 Magnesium [Mass/Vol] 1.9 mg/dL Normal 1.5-2.2 [facility] Comment on above: Performed By: #### L 501.9520, L3100.1850, L501.4700, L501.9985, L506.1001, L504.2610, L100.9950 #### [facility] [address] [place], [address] Phosphoruson 07-07-2025 Phosphate [Mass/Vol] 3.2 mg/dL Normal 2.7-4.5 [facility] Comment on above: Performed By: #### L 501.9520, L3100.1850, L501.4700, L501.9985, L506.1001, L504.2610, L100.9950 #### [facility] [address] [place], [id number] Retic Panelon 07-07-2025 IM RET FRACTION 19.70 High 3.00-15.90 [facility] Comment on above: Performed By: #### L 501.9520, L3100.1850, L501.4700, L501.9985, L506.1001, L504.2610, L100.9950 #### [facility] [address] [place], [id number] RET-HE 31.7 pg Normal 30-35 [facility] Comment on above: Performed By: #### L 501.9520, L3100.1850, L501.4700, L501.9985, L506.1001, L504.2610, L100.9950 #### [facility] [address] [place], [address] Retic Count 1.83 High 0.5-1.5 [facility] Comment on above: Performed By: #### L 501.9520, L3100.1850, L501.4700, L501.9985, L506.1001, L504.2610, L100.9950 #### [facility] [address] [place], [address] Thyroid Stim Hormone (TSH)on 07-07-2025 TSH 3.320 uIU/mL Normal 0.300-4.200 [facility] Comment on above: Performed By: #### L 501.9520, L3100.1850, L501.4700, L501.9985, L506.1001, L504.2610, L100.9950 #### [facility] [address] [place], [address] Vitamin D,25 Hydroxyon 07-07 Vitamin D 25-OH 44.1 ng/mL Normal 30-100 [facility] Comment on above: Result Comment: Araseli min D Status Deficiency: <20 ng/mL (50nmol/L) Insufficiency: 20-30 ng/mL (50-75 nmol/L) Sufficiency: 30-100 ng/mL (75-250 nmol/L) Toxicity: >100 ng/mL (>250 nmol/L) Performed By: #### L 501.9520, L3100.1850, L501.4700, L501.9985, L506.1001, L504.2610, L100.9950 #### [facility] [address] [place], [address] Absolute lymphocyte countOrd ered By: Tigre Figueroa on 07-06-2025 Lymphocytes Auto (Unsp spec) [#/Vol] 0.82 10*3/uL Low 0.83-4.51 [facility] Absolute neutrophil countOrd ered By: Tigre Figueroa on 07-06-2025 Neutrophils (Bld) [#/Vol] 8.8 10*3/uL High 2.0-7.7 [facility] Anion gap in Serum or Plasma Ordered By: Tigre Figueora on 07-06-2025 Anion gap [Moles/Vol] 12 mmol/L 5-[address] [facility] Automated lymphocyte count a s percentage of total leukocytesOrdered By: Tigre Figueroa on 07-06-2025 Lymphocytes/100 WBC Auto (Unsp spec) 7.3 % Low 19-41 [facility] BUN/creatinine ratioOrdered By: Tigre Figueroa on 07-06-2025 Urea nitrogen/Creatinine [Mass ratio] 24.3 mg/mg High 08-17 [facility] Basic Metabolic Profile (BMP )on 07-06-2025 BUN/CRE 24.3 RATIO High 08-17 [facility] Comment on above: Performed By: #### L 501.9520, L3100.1850, L501.4700, L501.9985, L506.1001, L504.2610, L100.9950 #### [facility] [address] [place], [address] Calcium [Mass/Vol] 9.7 mg/dL Normal 7.6-11.0 [facility] Comment on above: Performed By: #### L 501.9520, L3100.1850, L501.4700, L501.9985, L506.1001, L504.2610, L100.9950 #### [facility] [address] [place], [address] Chloride [Moles/Vol] 105 mmol/L Normal 98-108 [facility] Comment on above: Performed By: #### L 501.9520, L3100.1850, L501.4700, L501.9985, L506.1001, L504.2610, L100.9950 #### [facility] [address] [place], [address] CO2 [Moles/Vol] 24.6 mmol/L Normal 21.0-32.0 [facility] Comment on above: Performed By: #### L 501.9520, L3100.1850, L501.4700, L501.9985, L506.1001, L504.2610, L100.9950 #### [facility] [address] [place], [address] Creatinine [Mass/Vol] 1.16 mg/dL Normal 0.70-1.[address] [facility] Comment on above: Performed By: #### L 501.9520, L3100.1850, L501.4700, L501.9985, L506.1001, L504.2610, L100.9950 #### [facility] [address] [place], [address] ECRCL 66.65 ml/min Normal 50-250 [facility] Comment on above: Performed By: #### L 501.9520, L3100.1850, L501.4700, L501.9985, L506.1001, L504.2610, L100.9950 #### [facility] [address] [place], [place], [id number] (560) GAP 12 Normal 5-15 [facility] Comment on above: Performed By: #### L 501.9520, L3100.1850, L501.4700, L501.9985, L506.1001, L504.2610, L100.9950 #### [facility] [address] [place], [address] GFR/1.73 sq M.predicted among non-blacks MDRD (S/P/Bld) [Vol rate/Area] 64 mL/min/{1.73_m2} Normal >60 [facility] Comment on above: Result Comment: mL/m in/1.73m2 CKD-EPI Creatinine Equation (2020) Performed By: #### L 501.9520, L3100.1850, L501.4700, L501.9985, L506.1001, L504.2610, L100.9950 #### [facility] [address] [place], [address] Glucose [Mass/Vol] 162 mg/dL High 70-99 [facility] Comment on above: Performed By: #### L 501.9520, L3100.1850, L501.4700, L501.9985, L506.1001, L504.2610, L100.9950 #### [facility] [address] [place], [address] Potassium [Moles/Vol] 4.5 mmol/L Normal 3.3-5.[address] [facility] Comment on above: Performed By: #### L 501.9520, L3100.1850, L501.4700, L501.9985, L506.1001, L504.2610, L100.9950 #### [facility] [address] [place], [address] Sodium [Moles/Vol] 142 mmol/L Normal 133-145 [facility] Comment on above: Performed By: #### L 501.9520, L3100.1850, L501.4700, L501.9985, L506.1001, L504.2610, L100.9950 #### [facility] [address] [place], [address] Urea nitrogen [Mass/Vol] 28 mg/dL High 4-19 [facility] Comment on above: Performed By: #### L 501.9520, L3100.1850, L501.4700, L501.9985, L506.1001, L504.2610, L100.9950 #### [facility] [address] [place], [address] Basophil percentageOrdered B y: Tigre Figueroa on 07-06-2025 Basophils/100 WBC (Bld) 0.4 % 0-1 [facility] Bedside Glucoseon 07-06-2025 FINGERSTICK GLU 154 mg/dL High 74-106 [facility] Comment on above: Result Comment: ROBEL GEMENT OF PATIENT CARE PER NURSING PROTOCOL Performed By: #### L 501.9520, L3100.1850, L501.4700, L501.9985, L506.1001, L504.2610, L100.9950 #### [facility] [address] [place], [address] FINGERSTICK GLU 137 mg/dL High 74-106 [facility] Comment on above: Result Comment: ROBEL GEMENT OF PATIENT CARE PER NURSING PROTOCOL Performed By: #### L 501.080 #### [facility] [address] [place], [address] FINGERSTICK GLU 192 mg/dL High 74-106 [facility] Comment on above: Result Comment: ROBEL GEMENT OF PATIENT CARE PER NURSING PROTOCOL Performed By: #### L 501.080 #### [facility] [address] [place], [address] FINGERSTICK GLU 155 mg/dL High 74-106 [facility] Comment on above: Result Comment: ROBEL GEMENT OF PATIENT CARE PER NURSING PROTOCOL Performed By: #### L 501.9520, L3100.1850, L501.4700, L501.9985, L506.1001, L504.2610, L100.9950 #### [facility] [address] [place], [address] FINGERSTICK GLU 147 mg/dL High 74-106 [facility] Comment on above: Result Comment: ROBEL GEMENT OF PATIENT CARE PER NURSING PROTOCOL Performed By: #### L 501.9520, L3100.1850, L501.4700, L501.9985, L506.1001, L504.2610, L100.9950 #### [facility] [address] [place], [address] CBC W/Diff, Automatedon 09-0 Absolute Lymph 0.82 X10 3/uL Low 0.83-4.51 [facility] Comment on above: Performed By: #### L 501.9520, L3100.1850, L501.4700, L501.9985, L506.1001, L504.2610, L100.9950 #### [facility] [address] [place], [address] Absolute Neut 8.8 X10 3/uL High 2.0-7.7 [facility] Comment on above: Performed By: #### L 501.9520, L3100.1850, L501.4700, L501.9985, L506.1001, L504.2610, L100.9950 #### [facility] [address] [place], [address] Basophils/100 WBC (Bld) 0.4 % Normal 0-1 [facility] Comment on above: Performed By: #### L 501.9520, L3100.1850, L501.4700, L501.9985, L506.1001, L504.2610, L100.9950 #### [facility] [address] [place], [address] Eosinophils/100 WBC (Bld) 2.5 % Normal 0-5 [facility] Comment on above: Performed By: #### L 501.9520, L3100.1850, L501.4700, L501.9985, L506.1001, L504.2610, L100.9950 #### [facility] [address] [place], [address] Erythrocyte distribution width (RBC) [Ratio] 13.9 % Normal 11.6-14.6 [facility] Comment on above: Performed By: #### L 501.9520, L3100.1850, L501.4700, L501.9985, L506.1001, L504.2610, L100.9950 #### [facility] [address] [place], [address] Hematocrit (Bld) [Volume fraction] 36.0 % Low 40-54 [facility] Comment on above: Performed By: #### L 501.9520, L3100.1850, L501.4700, L501.9985, L506.1001, L504.2610, L100.9950 #### [facility] [address] [place], [address] Hemoglobin (Bld) [Mass/Vol] 11.7 g/dL Low 13.0-16.5 [facility] Comment on above: Performed By: #### L 501.9520, L3100.1850, L501.4700, L501.9985, L506.1001, L504.2610, L100.9950 #### [facility] [address] [place], [address] IG% 0.500 Normal 0.0-0.9 [facility] Comment on above: Result Comment: IG% - Immature Granulocytes (promyelocytes, myelocytes and metamyelocytes) > 1% indicates that a LEFT SHIFT is Present. Performed By: #### L 501.9520, L3100.1850, L501.4700, L501.9985, L506.1001, L504.2610, L100.9950 #### [facility] [address] [place], [address] Lymphocytes/100 WBC (Bld) 7.3 % Low 19-41 [facility] Comment on above: Performed By: #### L 501.9520, L3100.1850, L501.4700, L501.9985, L506.1001, L504.2610, L100.9950 #### [facility] [address] [place], [address] MCH (RBC) [Entitic mass] 31.8 pg Normal 27.0-32.0 [facility] Comment on above: Performed By: #### L 501.9520, L3100.1850, L501.4700, L501.9985, L506.1001, L504.2610, L100.9950 #### [facility] [address] [place], [address] MCHC (RBC) [Mass/Vol] 32.5 g/dL Normal 32-[address] [facility] Comment on above: Performed By: #### L 501.9520, L3100.1850, L501.4700, L501.9985, L506.1001, L504.2610, L100.9950 #### [facility] [address] [place], [address] MCV (RBC) [Entitic vol] 97.8 fL High 80-94 [facility] Comment on above: Performed By: #### L 501.9520, L3100.1850, L501.4700, L501.9985, L506.1001, L504.2610, L100.9950 #### [facility] [address] [place], [address] Monocytes/100 WBC (Bld) 10.5 % High 0-10 [facility] Comment on above: Performed By: #### L 501.9520, L3100.1850, L501.4700, L501.9985, L506.1001, L504.2610, L100.9950 #### [facility] [address] [place], [address] Neutrophils/100 WBC (Bld) 78.8 % High 47-70 [facility] Comment on above: Performed By: #### L 501.9520, L3100.1850, L501.4700, L501.9985, L506.1001, L504.2610, L100.9950 #### [facility] [address] [place], [address] Nucleated RBC (Bld) [#/Vol] 0 10*3/uL Normal 0-5 [facility] Comment on above: Performed By: #### L 501.9520, L3100.1850, L501.4700, L501.9985, L506.1001, L504.2610, L100.9950 #### [facility] [address] [place], [address] Platelet mean volume (Bld) [Entitic vol] 9.4 fL Normal 6.2-12.0 [facility] Comment on above: Performed By: #### L 501.9520, L3100.1850, L501.4700, L501.9985, L506.1001, L504.2610, L100.9950 #### [facility] [address] [place], [address] Platelets (Bld) [#/Vol] 303 10*3/uL Normal 150-450 [facility] Comment on above: Performed By: #### L 501.9520, L3100.1850, L501.4700, L501.9985, L506.1001, L504.2610, L100.9950 #### [facility] [address] [place], [address] RBC (Bld) [#/Vol] 3.68 10*6/uL Low 4.6-6.2 [facility] Comment on above: Performed By: #### L 501.9520, L3100.1850, L501.4700, L501.9985, L506.1001, L504.2610, L100.9950 #### [facility] [address] [place], [address] RDW SD 50.0 fl High 35.1-43.9 [facility] Comment on above: Performed By: #### L 501.9520, L3100.1850, L501.4700, L501.9985, L506.1001, L504.2610, L100.9950 #### [facility] [address] [place], [address] WBC (Bld) [#/Vol] 11.2 10*3/uL High 4.4-11.0 [facility] Comment on above: Performed By: #### L 501.9520, L3100.1850, L501.4700, L501.9985, L506.1001, L504.2610, L100.9950 #### [facility] [address] [place], [address] Carbon dioxide, total [Moles /volume] in Central venous bloodOrdered By: Tigre Figueroa on 07-06-2025 CO2 [Moles/Vol] 24.6 mmol/L 21.0-32.0 [facility] Chloride assayOrdered By: Winston Figueroa on 07-06-2025 Chloride [Moles/Vol] 105 mmol/L 98-108 [facility] Eosinophil percentageOrdered By: Tigre Figueroa on 07-06-2025 Eosinophils/100 WBC (Bld) 2.5 % 0-5 [facility] Erythrocyte distribution wid th ratioOrdered By: Tigre Figueroa on 07-06-2025 Erythrocyte distribution width (RBC) [Ratio] 13.9 % 11.6-14.6 [facility] Erythrocyte distribution wid th standard deviationOrdered By: Tigre Figueroa on 07-06-2025 Erythrocyte distribution width (RBC) [Ratio] 50.0 fl High 35.1-43.9 [facility] Glomerular filtration rate ( GFR) estimation/1.73 sq m using serum, plasma, or whole bOrdered By: Tigre Figueroa on 07-06-2025 GFR/1.73 sq M.predicted among non-blacks MDRD (S/P/Bld) [Vol rate/Area] 64 mL/min/{1.73_m2} >60 [facility] Comment on above: mL/min/1.73m2 CKD-EP I Creatinine Equation (2020) [facility] deOrdered By: Jerrell Esquivel on 07-06-2025 Glucose [Mass/Vol] 192 mg/dL High 74-106 [facility] Comment on above: MANAGEMENT OF PATIEN T CARE PER NURSING PROTOCOL Hematocrit Auto (Bld) [Volum e fraction]Ordered By: Tigre Figueroa on 07-06-2025 Hematocrit (Bld) [Volume fraction] 36.0 % Low 40-54 [facility] Hemoglobin measurementOrdere d By: Tigre Figueroa on 07-06-2025 Hemoglobin (Bld) [Mass/Vol] 11.7 g/dL Low 13.0-16.5 [facility] Immature granulocytes/100 WB C Auto (Bld)Ordered By: Tigre Figueroa on 07-06-2025 Immature granulocytes/100 WBC (Bld) 0.500 % 0.0-0.9 [facility] Comment on above: IG% - Immature Granu locytes (promyelocytes, myelocytes and metamyelocytes) > 1% indicates that a LEFT SHIFT is Present. MCV (mean corpuscular volume ) determinationOrdered By: Tigre Figueroa on 07-06-2025 MCV (RBC) [Entitic vol] 97.8 fL High 80-94 [facility] Magnesiumon 07-06-2025 Magnesium [Mass/Vol] 2.1 mg/dL Normal 1.5-2.2 [facility] Comment on above: Performed By: #### L 501.9520, L3100.1850, L501.4700, L501.9985, L506.1001, L504.2610, L100.9950 #### [facility] [address] [place], [place] [address], [id number] Magnesium measurement (mass/ volume)Ordered By: Tigre Figueroa on 07-06-2025 Magnesium (Unsp spec) [Mass/Vol] 2.1 mg/dL 1.5-2.2 [facility] Mean corpuscular hemoglobin (MCH) determinationOrdered By: Tigre Figueroa on 07-06-2025 MCH (RBC) [Entitic mass] 31.8 pg 27.0-32.0 [facility] Mean corpuscular hemoglobin concentration (MCHC) determinationOrdered By: Tigre Figueroa on 07-06-2025 MCHC (RBC) [Mass/Vol] 32.5 g/dL 32-[address] [facility] Mean platelet volume determi nationOrdered By: Tigre Figueroa on 07-06-2025 Platelet mean volume (Bld) [Entitic vol] 9.4 fL 6.2-12.0 [facility] Monocyte percentageOrdered B y: Tigre Figueroa on 07-06-2025 Monocytes/100 WBC (Bld) 10.5 % High 0-10 [facility] Neutrophil percentageOrdered By: Tigre Figueroa on 07-06-2025 Neutrophils/100 WBC (Bld) 78.8 % High 47-70 [facility] Nucleated red blood cell per centageOrdered By: Tigre Figueroa on 07-06-2025 Nucleated RBC/100 WBC (Bld) [Ratio] 0 % 0-5 [facility] Phosphoruson 07-06-2025 Phosphate [Mass/Vol] 3.1 mg/dL Normal 2.7-4.5 [facility] Comment on above: Performed By: #### L 501.9520, L3100.1850, L501.4700, L501.9985, L506.1001, L504.2610, L100.9950 #### [facility] [address] [place], [place], [address] Platelet countOrdered By: Winston Figueroa on 07-06-2025 Platelets (Bld) [#/Vol] 303 10*3/uL 150-450 [facility] Potassium measurement (mass/ volume)Ordered By: Tigre Figueroa on 07-06-2025 Potassium (Unsp spec) [Mass/Vol] 4.5 mmol/L 3.3-5.1 [facility] RBC Auto (Bld) [#/Vol]Ordere d By: Tigre Figueroa on 07-06-2025 RBC (Bld) [#/Vol] 3.68 10*6/uL Low 4.6-6.2 [facility] Serum creatinine measurement (mass/volume)Ordered By: Tigre Figueroa on 07-06-2025 Creatinine [Mass/Vol] 1.16 mg/dL 0.70-1.[address] [facility] Serum glucose measurement (m ass/volume)Ordered By: Tigre Figueroa on 07-06-2025 Glucose [Mass/Vol] 162 mg/dL High 70-99 [facility] Serum or plasma calcium sheldon urement (mass/volume)Ordered By: Tigre Figueroa on 07-06-2025 Calcium [Mass/Vol] 9.7 mg/dL 7.6-11.0 [facility] Serum or plasma urea nitroge n measurement (mass/volume)Ordered By: Tigre Figueroa on 07-06-2025 Urea nitrogen [Mass/Vol] 28 mg/dL High 4-19 [facility] Sodium levelOrdered By: Kit Figueroa on 07-06-2025 Sodium [Moles/Vol] 142 mmol/L 133-145 [facility] White blood cell (WBC) count Ordered By: Tigre Figueroa on 07-06-2025 WBC (Bld) [#/Vol] 11.2 10*3/uL High 4.4-11.0 [facility] Bedside Glucoseon 07-05-2025 FINGERSTICK GLU 155 mg/dL High 74-106 [facility] Comment on above: Result Comment: ROBEL GEMENT OF PATIENT CARE PER NURSING PROTOCOL Performed By: #### L 501.080 #### [facility] [address] [place], [address] FINGERSTICK GLU 174 mg/dL High 74-106 [facility] Comment on above: Result Comment: ROBEL GEMENT OF PATIENT CARE PER NURSING PROTOCOL Performed By: #### L 501.9520, L3100.1850, L501.4700, L501.9985, L506.1001, L504.2610, L100.9950 #### [facility] [address] [place], [address] FINGERSTICK GLU 142 mg/dL High 74-106 [facility] Comment on above: Result Comment: ROBEL GEMENT OF PATIENT CARE PER NURSING PROTOCOL Performed By: #### L 501.080 #### [facility] [address] [place], [address] Bilirubin, totalOrdered By: Amarilis Tillman on 07-05-2025 Bilirubin [Mass/Vol] 2.30 mg/dL High 0.00-1.30 [facility] CBC W/Diff, Automatedon Absolute Lymph 0.79 X10 3/uL Low 0.83-4.51 [facility] Comment on above: Performed By: #### L 501.9520, L3100.1850, L501.4700, L501.9985, L506.1001, L504.2610, L100.9950 #### [facility] [address] [place], [address] Absolute Neut 8.8 X10 3/uL High 2.0-7.7 [facility] Comment on above: Performed By: #### L 501.9520, L3100.1850, L501.4700, L501.9985, L506.1001, L504.2610, L100.9950 #### [facility] [address] [place], [address] Basophils/100 WBC (Bld) 0.4 % Normal 0-1 [facility] Comment on above: Performed By: #### L 501.9520, L3100.1850, L501.4700, L501.9985, L506.1001, L504.2610, L100.9950 #### [facility] [address] [place], [address] Eosinophils/100 WBC (Bld) 2.1 % Normal 0-5 [facility] Comment on above: Performed By: #### L 501.9520, L3100.1850, L501.4700, L501.9985, L506.1001, L504.2610, L100.9950 #### [facility] [address] [place], [address] Erythrocyte distribution width (RBC) [Ratio] 13.9 % Normal 11.6-14.6 [facility] Comment on above: Performed By: #### L 501.9520, L3100.1850, L501.4700, L501.9985, L506.1001, L504.2610, L100.9950 #### [facility] [address] [place], [address] Hematocrit (Bld) [Volume fraction] 38.3 % Low 40-54 [facility] Comment on above: Performed By: #### L 501.9520, L3100.1850, L501.4700, L501.9985, L506.1001, L504.2610, L100.9950 #### [facility] [address] [place], [address] Hemoglobin (Bld) [Mass/Vol] 11.9 g/dL Low 13.0-16.5 [facility] Comment on above: Performed By: #### L 501.9520, L3100.1850, L501.4700, L501.9985, L506.1001, L504.2610, L100.9950 #### [facility] [address] [place], [address] IG% 0.500 Normal 0.0-0.9 [facility] Comment on above: Result Comment: IG% - Immature Granulocytes (promyelocytes, myelocytes and metamyelocytes) > 1% indicates that a LEFT SHIFT is Present. Performed By: #### L 501.9520, L3100.1850, L501.4700, L501.9985, L506.1001, L504.2610, L100.9950 #### [facility] [address] [place], [address] Lymphocytes/100 WBC (Bld) 7.2 % Low 19-41 [facility] Comment on above: Performed By: #### L 501.9520, L3100.1850, L501.4700, L501.9985, L506.1001, L504.2610, L100.9950 #### [facility] [address] [place], [address] MCH (RBC) [Entitic mass] 30.7 pg Normal 27.0-32.0 [facility] Comment on above: Performed By: #### L 501.9520, L3100.1850, L501.4700, L501.9985, L506.1001, L504.2610, L100.9950 #### [facility] [address] [place], [address] MCHC (RBC) [Mass/Vol] 31.1 g/dL Low 32-[address] [facility] Comment on above: Performed By: #### L 501.9520, L3100.1850, L501.4700, L501.9985, L506.1001, L504.2610, L100.9950 #### [facility] [address] [place], [address] MCV (RBC) [Entitic vol] 99.0 fL High 80-94 [facility] Comment on above: Performed By: #### L 501.9520, L3100.1850, L501.4700, L501.9985, L506.1001, L504.2610, L100.9950 #### [facility] [address] [place], [address] Monocytes/100 WBC (Bld) 10.2 % High 0-10 [facility] Comment on above: Performed By: #### L 501.9520, L3100.1850, L501.4700, L501.9985, L506.1001, L504.2610, L100.9950 #### [facility] [address] [place], [address] Neutrophils/100 WBC (Bld) 79.6 % High 47-70 [facility] Comment on above: Performed By: #### L 501.9520, L3100.1850, L501.4700, L501.9985, L506.1001, L504.2610, L100.9950 #### [facility] [address] [place], [address] Nucleated RBC (Bld) [#/Vol] 0 10*3/uL Normal 0-5 [facility] Comment on above: Performed By: #### L 501.9520, L3100.1850, L501.4700, L501.9985, L506.1001, L504.2610, L100.9950 #### [facility] [address] [place], [address] Platelet mean volume (Bld) [Entitic vol] 9.8 fL Normal 6.2-12.0 [facility] Comment on above: Performed By: #### L 501.9520, L3100.1850, L501.4700, L501.9985, L506.1001, L504.2610, L100.9950 #### [facility] [address] [place], [address] Platelets (Bld) [#/Vol] 325 10*3/uL Normal 150-450 [facility] Comment on above: Performed By: #### L 501.9520, L3100.1850, L501.4700, L501.9985, L506.1001, L504.2610, L100.9950 #### [facility] [address] [place], [address] RBC (Bld) [#/Vol] 3.87 10*6/uL Low 4.6-6.2 [facility] Comment on above: Performed By: #### L 501.9520, L3100.1850, L501.4700, L501.9985, L506.1001, L504.2610, L100.9950 #### [facility] [address] [place], [address] RDW SD 50.5 fl High 35.1-43.9 [facility] Comment on above: Performed By: #### L 501.9520, L3100.1850, L501.4700, L501.9985, L506.1001, L504.2610, L100.9950 #### [facility] [address] [place], [address] WBC (Bld) [#/Vol] 11.0 10*3/uL Normal 4.4-11.0 [facility] Comment on above: Performed By: #### L 501.9520, L3100.1850, L501.4700, L501.9985, L506.1001, L504.2610, L100.9950 #### [facility] [address] [place], [address] Comprehensive Metabolic Prof ilon 07-05-2025 Albumin [Mass/Vol] 3.6 g/dL Normal 3.4-4.8 [facility] Comment on above: Performed By: #### L 501.9520, L3100.1850, L501.4700, L501.9985, L506.1001, L504.2610, L100.9950 #### [facility] [address] [place], [address] Albumin/Globulin [Mass ratio] 1.2 {ratio} Normal 0.9-2.4 [facility] Comment on above: Performed By: #### L 501.9520, L3100.1850, L501.4700, L501.9985, L506.1001, L504.2610, L100.9950 #### [facility] [address] [place], [address] ALK PHOS 125 U/L Normal 40-129 [facility] Comment on above: Performed By: #### L 501.9520, L3100.1850, L501.4700, L501.9985, L506.1001, L504.2610, L100.9950 #### [facility] [address] [place], [address] ALT [Catalytic activity/Vol] 17 U/L Normal <=46 [facility] Comment on above: Performed By: #### L 501.9520, L3100.1850, L501.4700, L501.9985, L506.1001, L504.2610, L100.9950 #### [facility] [address] [place], [address] AST [Catalytic activity/Vol] 20 U/L Normal <=37 [facility] Comment on above: Performed By: #### L 501.9520, L3100.1850, L501.4700, L501.9985, L506.1001, L504.2610, L100.9950 #### [facility] [address] [place], [address] Bilirubin [Mass/Vol] 2.30 mg/dL High 0.00-1.30 [facility] Comment on above: Performed By: #### L 501.9520, L3100.1850, L501.4700, L501.9985, L506.1001, L504.2610, L100.9950 #### [facility] [address] [place], [place], [id number] ([phone]) BUN/CRE 23.4 RATIO High 10-20 [facility] Comment on above: Performed By: #### L 501.9520, L3100.1850, L501.4700, L501.9985, L506.1001, L504.2610, L100.9950 #### [facility] [address] [place], [address] Calcium [Mass/Vol] 9.2 mg/dL Normal 7.6-11.0 [facility] Comment on above: Performed By: #### L 501.9520, L3100.1850, L501.4700, L501.9985, L506.1001, L504.2610, L100.9950 #### [facility] [address] [place], [address] Chloride [Moles/Vol] 106 mmol/L Normal 98-108 [facility] [facility] Comment on above: Performed By: #### L 501.9520, L3100.1850, L501.4700, L501.9985, L506.1001, L504.2610, L100.9950 #### [facility] [address] [place], [address] CO2 [Moles/Vol] 23.1 mmol/L Normal 21.0-32.0 [facility] Comment on above: Performed By: #### L 501.9520, L3100.1850, L501.4700, L501.9985, L506.1001, L504.2610, L100.9950 #### [facility] [address] [place], [address] Creatinine [Mass/Vol] 1.13 mg/dL Normal 0.70-1.[address] [facility] Comment on above: Performed By: #### L 501.9520, L3100.1850, L501.4700, L501.9985, L506.1001, L504.2610, L100.9950 #### [facility] [address] [place], [address] ECRCL 68.60 ml/min Normal 50-250 [facility] Comment on above: Performed By: #### L 501.9520, L3100.1850, L501.4700, L501.9985, L506.1001, L504.2610, L100.9950 #### [facility] [address] [place], [address] GAP 12 Normal 5-15 [facility] Comment on above: Performed By: #### L 501.9520, L3100.1850, L501.4700, L501.9985, L506.1001, L504.2610, L100.9950 #### [facility] [address] [place], [address] GFR/1.73 sq M.predicted among non-blacks MDRD (S/P/Bld) [Vol rate/Area] 67 mL/min/{1.73_m2} Normal >60 [facility] Comment on above: Result Comment: mL/m in/1.73m2 CKD-EPI Creatinine Equation (2020) Performed By: #### L 501.9520, L3100.1850, L501.4700, L501.9985, L506.1001, L504.2610, L100.9950 #### [facility] [address] [place], [address] Globulin (S) [Mass/Vol] 3.0 g/dL Normal 2.2-4.2 [facility] Comment on above: Performed By: #### L 501.9520, L3100.1850, L501.4700, L501.9985, L506.1001, L504.2610, L100.9950 #### [facility] [address] [place], [address] Glucose [Mass/Vol] 152 mg/dL High 70-99 [facility] Comment on above: Performed By: #### L 501.9520, L3100.1850, L501.4700, L501.9985, L506.1001, L504.2610, L100.9950 #### [facility] [address] [place], [address] Potassium [Moles/Vol] 4.3 mmol/L Normal 3.3-5.[address] [facility] Comment on above: Performed By: #### L 501.9520, L3100.1850, L501.4700, L501.9985, L506.1001, L504.2610, L100.9950 #### [facility] [address] [place], [place], [id number] Sodium [Moles/Vol] 141 mmol/L Normal 133-145 [facility] Comment on above: Performed By: #### L 501.9520, L3100.1850, L501.4700, L501.9985, L506.1001, L504.2610, L100.9950 #### [facility] [address] [place], [place], [id number] T PROT 6.6 g/dL Normal 5.9-8.4 [facility] Comment on above: Performed By: #### L 501.9520, L3100.1850, L501.4700, L501.9985, L506.1001, L504.2610, L100.9950 #### [facility] [address] [place], [place], [address] Urea nitrogen [Mass/Vol] 26 mg/dL High 4-19 [facility] Comment on above: Performed By: #### L 501.9520, L3100.1850, L501.4700, L501.9985, L506.1001, L504.2610, L100.9950 #### [facility] [address] [place], [place], [id number] Laboratory - Chemistry and C hemistry - challengeOrdered By: Amarilis Tillman on 07-05-2025 AST [Catalytic activity/Vol] 20 U/L <38 [facility] Serum globulin measurementOr dered By: Amarilis Tillman 07-05-2025 Globulin (S) [Mass/Vol] 3.0 g/dL 2.2-4.2 [facility] Serum or plasma alanine cardoza otransferase (ALT) measurementOrdered By: Amarilis Tillman on 07-05-2025 ALT [Catalytic activity/Vol] 17 U/L <47 [facility] Serum or plasma albumin sheldon urement (mass/volume)Ordered By: Amarilis Tillman on 07-05-2025 Albumin [Mass/Vol] 3.6 g/dL 3.4-4.8 [facility] Serum or plasma albumin/glob ulin mass ratioOrdered By: Amarilis Layne on 07-05-2025 Albumin/Globulin [Mass ratio] 1.2 {ratio} 0.9-2.4 [facility] Serum or plasma alkaline rose marie sphatase measurementOrdered By: Amarilis Layne on 07-05-2025 ALP [Catalytic activity/Vol] 125 U/L 40-129 [facility] Total proteinOrdered By: Nitesh Tillman on 07-05-2025 Protein [Mass/Vol] 6.6 g/dL 5.9-8.4 [facility] Absolute lymphocyte countOrd ered By: Randy Gibson on 07-04-2025 Lymphocytes Auto (Unsp spec) [#/Vol] 0.70 10*3/uL Low 0.83-4.51 [facility] Absolute neutrophil countOrd ered By: Randy Gibson on 07-04-2025 Neutrophils (Bld) [#/Vol] 8.1 10*3/uL High 2.0-7.7 [facility] Anion gap in Serum or Plasma Ordered By: Randy Gibson on 07-04-2025 Anion gap [Moles/Vol] 11 mmol/L 5-[address] [facility] Automated blood erythrocyte countOrdered By: Randy Gibson on 07-04-2025 RBC (Bld) [#/Vol] 3.78 10*6/uL Low 4.6-6.2 [facility] Comment on above: Performed By: #### L 501.9520, L3100.1850, L501.4700, L501.9985, L506.1001, L504.2610, L100.9950 #### [facility] [address] [place], [place], [id number] Automated blood hematocrit ( percentage)Ordered By: Randy Gibson on 07-04-2025 Hematocrit (Bld) [Volume fraction] 37.2 % Low 40-54 [facility] Comment on above: Performed By: #### L 501.9520, L3100.1850, L501.4700, L501.9985, L506.1001, L504.2610, L100.9950 #### [facility] [address] [place], [address] Automated lymphocyte count a s percentage of total leukocytesOrdered By: Randy Gibson on 07-04-2025 Lymphocytes/100 WBC Auto (Unsp spec) 6.9 % Low 19-41 [facility] BUN/creatinine ratioOrdered By: Randy Gibson on 07-04-2025 Urea nitrogen/Creatinine [Mass ratio] 21.7 mg/mg High 10-20 [facility] Basophil percentageOrdered B y: Randy Gibson on 07-04-2025 Basophils/100 WBC (Bld) 0.5 % Normal 0-1 [facility] Comment on above: Performed By: #### L 501.9520, L3100.1850, L501.4700, L501.9985, L506.1001, L504.2610, L100.9950 #### [facility] [address] [place], [address] Bedside Glucoseon 07-04-2025 FINGERSTICK GLU 157 mg/dL High 74-106 [facility] Comment on above: Result Comment: ROBEL GEMENT OF PATIENT CARE PER NURSING PROTOCOL Performed By: #### L 501.9520, L3100.1850, L501.4700, L501.9985, L506.1001, L504.2610, L100.9950 #### [facility] [address] [place], [address] FINGERSTICK GLU 163 mg/dL High 74-106 [facility] Comment on above: Result Comment: ROBEL GEMENT OF PATIENT CARE PER NURSING PROTOCOL Performed By: #### L 501.080 #### [facility] [address] [place], [address] FINGERSTICK GLU 165 mg/dL High 74-106 [facility] Comment on above: Result Comment: ROBEL GEMENT OF PATIENT CARE PER NURSING PROTOCOL Performed By: #### L 501.9520, L3100.1850, L501.4700, L501.9985, L506.1001, L504.2610, L100.9950 #### [facility] [address] [place], [address] FINGERSTICK GLU 171 mg/dL High 74-106 [facility] Comment on above: Result Comment: ROBEL BREWER OF PATIENT CARE PER NURSING PROTOCOL Performed By: #### L 501.9520, L3100.1850, L501.4700, L501.9985, L506.1001, L504.2610, L100.9950 #### [facility] [address] [facility] [place], [address] Bilirubin, totalOrdered By: Randy Gibson on 07-04-2025 Bilirubin [Mass/Vol] 1.47 mg/dL High 0.00-1.30 [facility] Comment on above: Performed By: #### L 501.9520, L3100.1850, L501.4700, L501.9985, L506.1001, L504.2610, L100.9950 #### [facility] [address] [place], [address] Brain/Head without Contrasto n 07-04-2025 Brain/Head without Contrast [facility] [address] [place] [address] Brain/Head without Contrast MR#: [id number] Acct: [id number] Name: KANDI GOMEZ Rep #: [id number] : 1945 M 80 From: Óscar cleary MD PCP: Dr. Billy Braga, DO Status: REG ER Study: Brain/Head without Contrast Date of Exam: 04/22 Exam# [id number] Ordering Dr: Randy Gibson DO PROCEDURE: BRAIN/HEAD [...] mild brain involutional changes. stable Reading Location: [place] [address] CC: Dr. Billy Braga, ; Dr. Randy Gibson, Supervisor Display Fabrication: Signed Normal [facility] CBC W/Diff, Automatedon 09-0 Absolute Lymph 0.70 X10 3/uL Low 0.83-4.51 [facility] Comment on above: Performed By: #### L 501.9520, L3100.1850, L501.4700, L501.9985, L506.1001, L504.2610, L100.9950 #### [facility] [address] [place], [address] Absolute Neut 8.1 X10 3/uL High 2.0-7.7 [facility] Comment on above: Performed By: #### L 501.9520, L3100.1850, L501.4700, L501.9985, L506.1001, L504.2610, L100.9950 #### [facility] [address] [place], [address] IG% 0.900 Normal 0.0-0.9 [facility] Comment on above: Result Comment: IG% - Immature Granulocytes (promyelocytes, myelocytes and metamyelocytes) > 1% indicates that a LEFT SHIFT is Present. Performed By: #### L 501.9520, L3100.1850, L501.4700, L501.9985, L506.1001, L504.2610, L100.9950 #### [facility] [address] [place], [address] Lymphocytes/100 WBC (Bld) 6.9 % Low 19-41 [facility] Comment on above: Performed By: #### L 501.9520, L3100.1850, L501.4700, L501.9985, L506.1001, L504.2610, L100.9950 #### [facility] [address] [place], [address] Nucleated RBC (Bld) [#/Vol] 0 10*3/uL Normal 0-5 [facility] Comment on above: Performed By: #### L 501.9520, L3100.1850, L501.4700, L501.9985, L506.1001, L504.2610, L100.9950 #### [facility] [address] [place], [address] RDW SD 49.6 fl High 35.1-43.9 [facility] Comment on above: Performed By: #### L 501.9520, L3100.1850, L501.4700, L501.9985, L506.1001, L504.2610, L100.9950 #### [facility] [address] [place], [address] Carbon dioxide, total [Moles /volume] in Central venous bloodOrdered By: Randy Gibson on 07-04-2025 CO2 [Moles/Vol] 23.6 mmol/L Normal 21.0-32.0 [facility] Comment on above: Performed By: #### L 501.9520, L3100.1850, L501.4700, L501.9985, L506.1001, L504.2610, L100.9950 #### [facility] [address] [place], [address] Chloride assayOrdered By: Ramsey Gibsno on 07-04-2025 Chloride [Moles/Vol] 106 mmol/L Normal 98-108 [facility] Comment on above: Performed By: #### L 501.9520, L3100.1850, L501.4700, L501.9985, L506.1001, L504.2610, L100.9950 #### [facility] [address] [place], [place], [id number] Comprehensive Metabolic Prof waon 07-04-2025 ALK PHOS 129 U/L Normal 40-129 [facility] Comment on above: Performed By: #### L 501.9520, L3100.1850, L501.4700, L501.9985, L506.1001, L504.2610, L100.9950 #### [facility] [address] [place], [place], [id number] BUN/CRE 21.7 RATIO High 10-20 [facility] Comment on above: Performed By: #### L 501.9520, L3100.1850, L501.4700, L501.9985, L506.1001, L504.2610, L100.9950 #### [facility] [address] [place], [address] ECRCL 70.79 ml/min Normal 50-250 [facility] Comment on above: Performed By: #### L 501.9520, L3100.1850, L501.4700, L501.9985, L506.1001, L504.2610, L100.9950 #### [facility] [address] [place], [address] GAP 11 Normal 5-15 [facility] Comment on above: Performed By: #### L 501.9520, L3100.1850, L501.4700, L501.9985, L506.1001, L504.2610, L100.9950 #### [facility] [address] [place], [address] Potassium [Moles/Vol] 4.3 mmol/L Normal 3.3-5.[address] [facility] Comment on above: Performed By: #### L 501.9520, L3100.1850, L501.4700, L501.9985, L506.1001, L504.2610, L100.9950 #### [facility] [address] [place], [place], [id number] T PROT 6.5 g/dL Normal 5.9-8.4 [facility] Comment on above: Performed By: #### L 501.9520, L3100.1850, L501.4700, L501.9985, L506.1001, L504.2610, L100.9950 #### [facility] [address] [place], [place], [address] Comprehensive Metabolic Prof ilOrdered By: Randy Gibson on 07-04-2025 AST [Catalytic activity/Vol] 24 U/L Normal <=37 [facility] Comment on above: Performed By: #### L 501.9520, L3100.1850, L501.4700, L501.9985, L506.1001, L504.2610, L100.9950 #### [facility] [address] [place], [address] Consultation - [facility]opedicson 07-04-2025 [facility] [address] [place] [address] Consultation - Orthopedics 07/04/25929 MR#: [id number] Acct: [id number] Name: KANDI GOMEZ Rep #: [id number] : 1945 80 From: Umer Rivera MD PCP: Dr. Billy Braga, DO Status:ADM LILY Location: [place] [address] HPI Consult Data Date of Consult: 07/04/25 HPI Narrative HPI Narrative: que JIMENEZ a 80 M who presents with L proximal humerus fracture after multiple falls. [facility] Medical History (Updated 07/04/25 @ 08:50 [...] 79.6 H, Lymph % (Auto) 6.9 L, [place] % (Auto) 9.9, Eos % (Auto) 2.2, [...] 2.7, [place] (more content not included)... Normal [facility] Emergency Department Summary on 07-04-2025 Emergency Department Summary [facility] Medical Records Department [address] [place] [address] Emergency Department Summary 07/04/25 MR#: [id number] Acct: [id number] Name: KANDI GOMEZ Rep #: [id number] : 1945 80 From: Randy Gibson DO PCP: Dr. Billy Braga, DO Status:[facility] ER Location: ED HPI History of Present Illness Chief Complaint: Fall [facility] Medical History Tonsil and adenoid disease, [...] Medicine (Dr. Tillman), orthopedic surgery (Dr. Rivera) [facility] Narrative: The patient (more content not included)... Normal [facility] Eosinophil percentageOrdered By: Randy Gibson on 07-04-2025 Eosinophils/100 WBC (Bld) 2.2 % Normal 0-5 [facility] Comment on above: Performed By: #### L 501.9520, L3100.1850, L501.4700, L501.9985, L506.1001, L504.2610, L100.9950 #### [facility] [address] [place], [place], [id number] Erythrocyte distribution wid th ratioOrdered By: Randy Gibson on 07-04-2025 Erythrocyte distribution width (RBC) [Ratio] 13.6 % Normal 11.6-14.6 [facility] Comment on above: Performed By: #### L 501.9520, L3100.1850, L501.4700, L501.9985, L506.1001, L504.2610, L100.9950 #### [facility] [address] [place], [address] Erythrocyte distribution wid th standard deviationOrdered By: Randy Gibson on 07-04-2025 Erythrocyte distribution width (RBC) [Ratio] 49.6 fl High 35.1-43.9 [facility] Glomerular filtration rate ( GFR) estimation/1.73 sq m using serum, plasma, or whole bOrdered By: Randy Gibson on 07-04-2025 GFR/1.73 sq M.predicted among non-blacks MDRD (S/P/Bld) [Vol rate/Area] 64 mL/min/{1.73_m2} Normal >60 [facility] Comment on above: mL/min/1.73m2 CKD-EP I Creatinine Equation (2020) Result Comment: mL/m in/1.73m2 CKD-EPI Creatinine Equation (2020) Performed By: #### L 501.9520, L3100.1850, L501.4700, L501.9985, L506.1001, L504.2610, L100.9950 #### [facility] [address] [place], [address] H AND P Exam - Hospitaliston 07-04-2025 H&P Exam - Hospitalist [facility] Medical Records Department [address] [place] [address] H P Exam - Hospitalist 07/04/25 0413 MR#: [id number] Acct: [id number] Name: KANDI GOMEZ Rep #: [id number] : 1945 80 From: Amarilis Tillman MD [...] discharged to home now re-presenting to the [facility] ED on 07/04/2025 with another mechanical fall [...] no acute surgical plans per ED report. [facility] Medical History (Updated 07/04/25 @ 04:28 [...] cough or (more content not included)... Normal [facility] Hemoglobin measurementOrdere d By: aRndy Gibson on 07-04-2025 Hemoglobin (Bld) [Mass/Vol] 11.9 g/dL Low 13.0-16.5 [facility] Comment on above: Performed By: #### L 501.9520, L3100.1850, L501.4700, L501.9985, L506.1001, L504.2610, L100.9950 #### [facility] [address] [place], [address] Humerus min 2 Viewson 2024 Humerus min 2 Views [facility] Imaging Services [address] [place] [address] Humerus min 2 Views MR#: [id number] Acct: [id number] Name: KANDI GOMEZ Rep #: [id number] : 1945 M 80 From: Óscar cleary MD PCP: Dr. Billy Braga DO Status: REG ER Study: Humerus min 2 Views Date of Exam: 07/04/25 Exam# [id number] Ordering Dr: Randy Gibson DO PROCEDURE: HUMERUS [...] soft tissue edema and swelling. Reading [facility] CC: Dr. Billy Braga DO; Dr. Randy Gibson DO Supervisor Display Fabrication: Signed Normal [facility] Immature granulocytes/100 WB C Auto (Bld)Ordered By: Randy Gibson on 07-04-2025 Immature granulocytes/100 WBC (Bld) 0.900 % 0.0-0.9 [facility] Comment on above: IG% - Immature Granu locytes (promyelocytes, myelocytes and metamyelocytes) > 1% indicates that a LEFT SHIFT is Present. MCV (mean corpuscular volume ) determinationOrdered By: Randy Gibson on 07-04-2025 MCV (RBC) [Entitic vol] 98.4 fL High 80-94 [facility] Comment on above: Performed By: #### L 501.9520, L3100.1850, L501.4700, L501.9985, L506.1001, L504.2610, L100.9950 #### [facility] [address] [place], [address] Magnesiumon 07-04-2025 Magnesium [Mass/Vol] 1.8 mg/dL Normal 1.5-2.2 [facility] Comment on above: Order Comment: Comme nts: may add to ED labs Performed By: #### L 501.9520, L3100.1850, L501.4700, L501.9985, L506.1001, L504.2610, L100.9950 #### [facility] [address] [place], [place], [id number] Mean corpuscular hemoglobin (MCH) determinationOrdered By: Randy Gibson on 07-04-2025 MCH (RBC) [Entitic mass] 31.5 pg Normal 27.0-32.0 [facility] Comment on above: Performed By: #### L 501.9520, L3100.1850, L501.4700, L501.9985, L506.1001, L504.2610, L100.9950 #### [facility] [address] [place], [place], [address] Mean corpuscular hemoglobin concentration (MCHC) determinationOrdered By: Randy Gibson on 07-04-2025 MCHC (RBC) [Mass/Vol] 32.0 g/dL Normal 32-[address] [facility] Comment on above: Performed By: #### L 501.9520, L3100.1850, L501.4700, L501.9985, L506.1001, L504.2610, L100.9950 #### [facility] [address] [place], [place], [phone] (714) Mean platelet volume determi nationOrdered By: Randy Gibson on 07-04-2025 Platelet mean volume (Bld) [Entitic vol] 9.3 fL Normal 6.2-12.0 [facility] Comment on above: Performed By: #### L 501.9520, L3100.1850, L501.4700, L501.9985, L506.1001, L504.2610, L100.9950 #### [facility] [address] [place], [address] Monocyte percentageOrdered B y: Randy Gibson on 07-04-2025 Monocytes/100 WBC (Bld) 9.9 % Normal 0-10 [facility] Comment on above: Performed By: #### L 501.9520, L3100.1850, L501.4700, L501.9985, L506.1001, L504.2610, L100.9950 #### [facility] [address] [place], [place], [id number] (203) Neutrophil percentageOrdered By: Randy Gibson on 07-04-2025 Neutrophils/100 WBC (Bld) 79.6 % High 47-70 [facility] Comment on above: Performed By: #### L 501.9520, L3100.1850, L501.4700, L501.9985, L506.1001, L504.2610, L100.9950 #### [facility] [address] [place], [place], [address] Nucleated red blood cell per centageOrdered By: Randy Gibson on 07-04-2025 Nucleated RBC/100 WBC (Bld) [Ratio] 0 % 0-5 [facility] Platelet countOrdered By: Ramsey Gibson on 07-04-2025 Platelets (Bld) [#/Vol] 269 10*3/uL Normal 150-450 [facility] Comment on above: Performed By: #### L 501.9520, L3100.1850, L501.4700, L501.9985, L506.1001, L504.2610, L100.9950 #### [facility] [address] [place], [address] Potassium measurement (mass/ volume)Ordered By: Randy Gibson on 07-04-2025 Potassium (Unsp spec) [Mass/Vol] 4.3 mmol/L 3.3-5.1 [facility] Serum creatinine measurement (mass/volume)Ordered By: Randy Gibson on 07-04-2025 Creatinine [Mass/Vol] 1.17 mg/dL Normal 0.70-1.[address] [facility] Comment on above: Performed By: #### L 501.9520, L3100.1850, L501.4700, L501.9985, L506.1001, L504.2610, L100.9950 #### [facility] [address] [place], [address] Serum globulin measurementOr dered By: Randy Gibson on 07-04-2025 Globulin (S) [Mass/Vol] 2.7 g/dL Normal 2.2-4.2 [facility] Comment on above: Performed By: #### L 501.9520, L3100.1850, L501.4700, L501.9985, L506.1001, L504.2610, L100.9950 #### [facility] [address] [place], [address] Serum glucose measurement (m ass/volume)Ordered By: Randy Gibson on 07-04-2025 Glucose [Mass/Vol] 195 mg/dL High 70-99 [facility] Comment on above: Performed By: #### L 501.9520, L3100.1850, L501.4700, L501.9985, L506.1001, L504.2610, L100.9950 #### [facility] [address] [place], [place], [id number] (228) Serum or plasma alanine cardoza otransferase (ALT) measurementOrdered By: Randy Gibson on 07-04-2025 ALT [Catalytic activity/Vol] 19 U/L Normal <=46 [facility] Comment on above: Performed By: #### L 501.9520, L3100.1850, L501.4700, L501.9985, L506.1001, L504.2610, L100.9950 #### [facility] [address] [place], [place], [id number] (833) Serum or plasma albumin sheldon urement (mass/volume)Ordered By: Randy Gibson on 07-04-2025 Albumin [Mass/Vol] 3.8 g/dL Normal 3.4-4.8 [facility] Comment on above: Performed By: #### L 501.9520, L3100.1850, L501.4700, L501.9985, L506.1001, L504.2610, L100.9950 #### [facility] [address] [place], [place], [id number] (384) Serum or plasma albumin/glob ulin mass ratioOrdered By: Randy Gibson on 07-04-2025 Albumin/Globulin [Mass ratio] 1.4 {ratio} Normal 0.9-2.4 [facility] Comment on above: Performed By: #### L 501.9520, L3100.1850, L501.4700, L501.9985, L506.1001, L504.2610, L100.9950 #### [facility] [address] [place], [place], [address] Serum or plasma alkaline rose marie sphatase measurementOrdered By: Randy Gibson on 07-04-2025 ALP [Catalytic activity/Vol] 129 U/L 40-129 [facility] Serum or plasma calcium sheldon urement (mass/volume)Ordered By: Randy Gibson on 07-04-2025 Calcium [Mass/Vol] 9.1 mg/dL Normal 7.6-11.0 [facility] Comment on above: Performed By: #### L 501.9520, L3100.1850, L501.4700, L501.9985, L506.1001, L504.2610, L100.9950 #### [facility] [address] [place], [place], [address] Serum or plasma urea nitroge n measurement (mass/volume)Ordered By: Randy Gibson on 07-04-2025 Urea nitrogen [Mass/Vol] 25 mg/dL High 4-19 [facility] Comment on above: Performed By: #### L 501.9520, L3100.1850, L501.4700, L501.9985, L506.1001, L504.2610, L100.9950 #### [facility] [address] [place], [address] Shoulder min 2 Viewson 07-04 Shoulder min 2 Views [facility] Imaging Services [address] [place] [address] Shoulder min 2 Views MR#: [id number] Acct: [id number] Name: KANDI GOMEZ Rep #: [id number] : 1945 M 80 From: Óscar cleary MD PCP: Dr. Billy Braga, Status: REG ER Study: Shoulder min 2 Views Date of Exam: 07/04/25 Exam# [id number] Ordering Dr: Randy Gibson DO PROCEDURE: SHOULDER [...] soft tissue edema and swelling. Reading Location: [place] [address] CC: Dr. Billy Braga DO; Dr. Randy Gibson DO Supervisor Display Fabrication: Signed Normal [facility] Sodium levelOrdered By: Matthew Gibson on 07-04-2025 Sodium [Moles/Vol] 140 mmol/L Normal 133-145 [facility] Comment on above: Performed By: #### L 501.9520, L3100.1850, L501.4700, L501.9985, L506.1001, L504.2610, L100.9950 #### [facility] [address], [address] Spine Cervical without Contr ason 07-04-2025 Spine Cervical without Contras [facility] Services [address] [place] [address] Spine Cervical without Contras MR#: [id number] Acct: [id number] Name: KANDI GOMEZ Rep #: [id number] : 1945 M 80 From: Óscar cleary MD PCP: Dr. Billy Braga DO Status: REG ER Study: Spine Cervical without Contras Date of Exam: 0 07/04/25 Exam# [id number] Ordering Dr: Randy Gibson DO PROCEDURE: SPINE [...] Stable study findings as detailed. Reading Location: [place] [address] CC: Dr. Billy Braga, ; Dr. Randy Gibson Supervisor Display [employer]rication: Signed Normal [facility] Total proteinOrdered By: Geo Gibson on 07-04-2025 Protein [Mass/Vol] 6.5 g/dL 5.9-8.4 [facility] White blood cell (WBC) count Ordered By: Randy Gibson on 07-04-2025 WBC (Bld) [#/Vol] 10.1 10*3/uL Normal 4.4-11.0 [facility] Comment on above: Performed By: #### L 501.9520, L3100.1850, L501.4700, L501.9985, L506.1001, L504.2610, L100.9950 #### [facility] [place], [address] Brain/Head without Contrasto n 07-03-2025 Brain/Head without Contrast [facility] Imaging Services [address] [place] [address] Brain/Head without Contrast MR#: [id number] Acct: [id number] Name: KANDI GOMEZ Rep #: [id number] : 1945 M 80 From: Rose Mary Rodriguez PCP: Dr. Billy Braga DO Status: REG ER Study: Brain/Head without Contrast Date of Exam: 03/22 Exam# [id number] Ordering Dr: Mj Ngo DO PROCEDURE: BRAIN/HEAD [...] No acute intracranial process. Reading Location: [facility] CC: Dr. Billy Braga DO; Dr. Mj Ngo DO Supervisor Display [employer]rication: Signed Normal [facility] Emergency Department Summary on 07-03-2025 Emergency Department Summary [facility] Medical Records Department [address] [place] [address] Emergency Department Summary 07/03/25 MR#: [id number] Acct: [id number] Name: KANDI GOMEZ Rep #: [id number] : 1945 80 From: Mj Ngo DO [...] of right hand pain and a cut. [facility] Medical History Tonsil and adenoid disease, [...] following commands knew that he was at [facility] year is 2024 Skin: Warm, dry, [...] phalanx fracture (more content not included)... Normal [facility] Forearm 2 Viewson 07-03-2025 Forearm 2 Views [facility] [address] [place], [place] [address] Forearm 2 Views MR#: [id number] Acct: [id number] Name: KANDI GOMEZ Rep #: [id number] : 1945 M 80 From: Rose Mary Rodriguez PCP: Dr. Billy Braga DO Status: REG ER Study: Forearm 2 Views Date of Exam: 07/03/25 Exam# [id number] Ordering Dr: Mj Ngo DO PROCEDURE: FOREARM 2 VIEWS 07/03/2025 REASON FOR EXAM: FALL TECHNIQUE: Procedure Code: RADFA Modality: DX Procedure: FOREARM 2 VIEWS COMPARISON: None ORDER #: RAD/Forearm 2 Views IMPRESSION: No acute fracture or dislocations. Scattered mild degenerative changes. No acute soft tissue abnormalities. No radiographic foreign body. Reading Location: [facility] CC: Dr. Billy Braag DO; Dr. Mj Ngo DO Supervisor [employer]ation: Signed Normal [facility] Hand Min 3 Viewson Hand Min 3 Views [facility] [address] [place], [place] [address] Hand Min 3 Views MR#: [id number] Acct: [id number] Name: KANDI GOMEZ Rep #: [id number] : 1945 M 80 From: Rose Mary Rodriguez PCP: Dr. Billy Braga DO Status: REG ER Study: Hand Min 3 Views Date of Exam: 07/03/25 Exam# [id number] Ordering Dr: Mj Ngo DO PROCEDURE: HAND MIN 3 VIEWS 07/03/2025 REASON FOR EXAM: FALL, HAND LAC BASE OF 5TH TECHNIQUE: Procedure Code: GINNA Modality: DX Procedure: HAND MIN 3 VIEWS Laterality: COMPARISON: None ORDER #: RAD/Hand Min 3 Views IMPRESSION: No acute fracture or dislocations. Scattered mild degenerative changes. Mild soft tissue edema/contusion. No radiographic foreign body. Reading Location: [id number] CC: Dr. Billy Braga DO; Dr. Mj Ngo DO Supervisor Display [employer]ation: Signed Normal [facility] Spine Cervical without Contr ason 07-03-2025 Spine Cervical without Contras [facility] [address] [place], [place] [address] Spine Cervical without Contras MR#: [id number] Acct: [id number] Name: KANDI GOMEZ Rep #: [id number] : 1945 M 80 From: Rose Mary Rodriguez PCP: Dr. Billy Braga DO Status: REG ER Study: Spine Cervical without Contras Date of Exam: 0 07/03/25 Exam# [id number] Ordering Dr: Mj Ngo DO PROCEDURE: SPINE [...] stenosis most prominent at C6-C7. Reading Location: [id number] CC: Dr. Billy Braga DO; Dr. Mj Ngo DO Supervisor Display [employer]rication: Signed Normal [facility] Wrist min 3 Viewson 07-03-20 Wrist min 3 Views [facility] [address] [place], [place] [address] Wrist min 3 Views MR#: [id number] Acct: [id number] Name: KANDI GOMEZ Rep #: [id number] : 1945 M 80 From: Rose Mary Rodriguez PCP: Dr. Billy Braga DO Status: REG ER Study: Wrist min 3 Views Date of Exam: 07/03/25 Exam# [id number] Ordering Dr: Mj Ngo DO PROCEDURE: WRIST MIN 3 VIEWS 07/03/2025 REASON FOR EXAM: FALL TECHNIQUE: Procedure Code: RADWR Modality: DX Procedure: WRIST MIN 3 VIEWS COMPARISON: None RAD/Wrist min 3 Views IMPRESSION: No acute fracture or dislocations. Scattered mild degenerative changes. No acute soft tissue abnormalities. No radiographic foreign body. Reading Location: [id number] CC: Dr. Billy Braga DO; Dr. Mj Ngo DO Supervisor Display Fabrication: Signed Normal [facility] Absolute lymphocyte countOrd ered By: Dr. Alfodr on 12-26-2022 Lymphocytes Auto (Unsp spec) [#/Vol] 1.22 10*3/uL 0.83-4.51 [facility] Basophil percentageOrdered B y: Dr. Alford on 12-26-2022 Basophils/100 WBC (Bld) 0.6 % 0-1 [facility] Bilirubin [Mass/Vol] 1.80 mg/dL 0.20-1.00 [facility] Comment on above: For patients on eltr ombopag therapy, use of Dimension [place] TBIL is not recommended. Chloride [Moles/Vol] 105 mmol/L 98-107 [facility] Eosinophils/100 WBC (Bld) 1.6 % 0-5 [facility] Glucose [Mass/Vol] 157 mg/dL 74-106 [facility] Comment on above: Fasting Glucose resu lt greater than or equal to 126 mg/dL suggests DIABETES MELLITUS per A.D.A. criteria. Neutrophils (Bld) [#/Vol] 7.4 10*3/uL 2.0-7.7 [facility] Neutrophils/100 WBC (Bld) 75.5 % 47-70 [facility] Potassium [Moles/Vol] 4.6 mmol/L 3.5-5.[address] [facility] Protein [Mass/Vol] 7.2 g/dL 6.4-8.2 [facility] Sodium [Moles/Vol] 140 mmol/L 136-145 [facility] WBC (Bld) [#/Vol] 9.8 10*3/uL 4.4-11.0 [facility] Blood erythrocytes count (nu mber/volume)Ordered By: Dr. Alford on 12-26-2022 RBC (Bld) [#/Vol] 4.36 10*6/uL 4.6-6.2 [facility] Blood hemoglobin measurement (mass/volume)Ordered By: Dr. Alford on 12-26-2022 Hemoglobin (Bld) [Mass/Vol] 13.4 g/dL 13.0-16.5 [facility] Blood lymphocytes/100 leukoc ytesOrdered By: Dr. Alford on 12-26-2022 Lymphocytes/100 WBC (Bld) 12.5 % 19-41 [facility] Blood monocytes/100 leukocyt esOrdered By: Dr. Alford on 12-26-2022 Monocytes/100 WBC (Bld) 9.2 % 0-10 [facility] Blood platelet mean volumeOr dered By: Dr. Alford on 12-26-2022 Platelet mean volume (Bld) [Entitic vol] 9.9 fL 6.2-12.0 [facility] COVID-19 virus antigen assay Ordered By: Dr. Alford on 12-26-2022 SARS-CoV-2 (COVID-19) Ag IA.rapid Ql (Resp) [facility] Determination of erythrocyte mean corpuscular volume (MCV)Ordered By: Dr. Alford on 12-26-2022 MCV (RBC) [Entitic vol] 100.0 fL 80-94 [facility] Hematocrit Auto (Bld) [Volum e fraction]Ordered By: Dr. Alford on 12-26-2022 Hematocrit (Bld) [Volume fraction] 43.6 % 40-54 [facility] Laboratory - Chemistry and C hemistry - challengeOrdered By: Dr. Alford on 12-26-2022 ALP [Catalytic activity/Vol] 119 U/L 45-117 [facility] ALT [Catalytic activity/Vol] 27 U/L 16-61 [facility] CO2 [Moles/Vol] 26.0 mmol/L 21.0-32.0 [facility] Globulin (S) [Mass/Vol] 3.4 g/dL 2.2-4.2 [facility] Natriuretic peptide B (Bld) [Mass/Vol] 653.8 pg/mL 0-100 [facility] Urea nitrogen/Creatinine [Mass ratio] 16.8 mg/mg 10-20 [facility] Laboratory - Hematology and Cell countsOrdered By: Dr. Alford on 12-26-2022 Erythrocyte distribution width (RBC) [Entitic vol] 52.6 fL 35.1-43.9 [facility] Erythrocyte distribution width (RBC) [Ratio] 14.5 % 11.6-14.6 [facility] Immature granulocytes/100 WBC (Bld) 0.600 % 0.0-0.9 [facility] Comment on above: IG% - Immature Granu locytes (promyelocytes, myelocytes and metamyelocytes) > 1% indicates that a LEFT SHIFT is Present. MCH (RBC) [Entitic mass] 30.7 pg 27.0-32.0 [facility] Nucleated RBC/100 WBC (Bld) [Ratio] 0 % 0-5 [facility] MCHC Auto (RBC) [Mass/Vol]Or dered By: Dr. Alford on 12-26-2022 MCHC (RBC) [Mass/Vol] 30.7 g/dL 32-[address] [facility] No Panel InformationOrdered By: Dr. Alford on 12-26-2022 Estimated Creatinine Clearance Calc 36.95 ml/min [facility] Estimated GFR (MDRD) Amer 46 mL/min >60 [facility] Comment on above: GFR Calc Estimated GFR (MDRD) Non-Af Amer 38 mL/min >60 [facility] Comment on above: Non- GFR Calc Troponin I High Sensitivity 8 pg/mL 3.0-78.0 [facility] Comment on above: Please Note: New [place]en t Units and Gender Specific Reference Ranges. For more information see Policy Stat Procedure [place] High Sensitivity Troponin (TNIH) and attachments. Platelets bldOrdered By: Dr. Alford on 12-26-2022 Platelets (Bld) [#/Vol] 292 10*3/uL 150-450 [facility] Serum or plasma albumin sheldon urement (mass/volume)Ordered By: Dr. Alford on 12-26-2022 Albumin [Mass/Vol] 3.8 g/dL 3.2-5.0 [facility] Serum or plasma albumin/glob ulin mass ratioOrdered By: Dr. Alford on 12-26-2022 Albumin/Globulin [Mass ratio] 1.1 {ratio} 0.9-2.4 [facility] Serum or plasma calcium sheldon urement (mass/volume)Ordered By: Dr. Alford on 12-26-2022 Calcium [Mass/Vol] 9.7 mg/dL 8.5-10.1 [facility] Serum or plasma creatinine m easurement (mass/volume)Ordered By: Dr. Alford on 12-26-2022 Creatinine [Mass/Vol] 1.84 mg/dL 0.70-1.[address] [facility] Comment on above: The validity of the calculated GFR & GFRAA in patients over 70 years has not been determined. Clinical correlation is essential. Serum or plasma urea nitroge n measurement (mass/volume)Ordered By: Dr. Alford on 12-26-2022 Urea nitrogen [Mass/Vol] 31 mg/dL 7-18 [facility] Thin prep Papanicolaou smear with manual screeningOrdered By: Dr. Alford on 12-26-2022 Thin prep Papanicolaou smear with manual screening 19 U/L 15-37 [facility] Thin prep Papanicolaou smear with manual screening 9 5-15 [facility] Vital Signs Date Time Vital Sign Value Performing Clinician Faci lity 07-06-2025 13:51-0400 Body temperature 97.3 [degF] Dr. Billy Braga DO Work Phone: [facility] 07-06-2025 13:51-0400 Diastolic blood pressure 50 mm[Hg] Dr. Billy Braga DO Work Phone: [facility] 07-06-2025 13:51-0400 Heart rate 67 /min Dr. Billy Braga DO Work Phone: [facility] 07-06-2025 13:51-0400 Respiratory rate 15 /min Dr. Billy Braga DO Work Phone: [facility] 07-06-2025 13:51-0400 SaO2% (BldA) [Mass fraction] 95 % Dr. Billy Braga DO Work Phone: [facility] 07-06-2025 13:51-0400 Systolic blood pressure 99 mm[Hg] Dr. Billy Braga DO Work Phone: [facility] 07-06-2025 06:00-0400 Body mass index (BMI) [Ratio] 38.6 kg/m2 Dr. Billy Braga DO Work Phone: [facility] 07-06-2025 06:00-0400 Body weight 118.[address] Billy Braga DO Work Phone: [facility] 07-06-2025 04:38-0400 Inhaled oxygen flow rate 2 L/min Dr. Billy Braga DO Work Phone: [facility] 07-04-2025 05:40-0400 Body height 175.[address] Billy Braga DO Work Phone: [facility] 07-04-2025 04:37-0400 Body temperature 97.6 [degF] Dr. Billy Braga DO Work Phone: [facility] 07-04-2025 04:37-0400 Diastolic blood pressure 54 mm[Hg] Dr. Billy Braga DO Work Phone: [facility] 07-04-2025 04:37-0400 Heart rate 58 /min Dr. Billy Braga DO Work Phone: [facility] 07-04-2025 04:37-0400 Respiratory rate 15 /min Dr. Billy Braga DO Work Phone: [facility] 07-04-2025 04:37-0400 SaO2% (BldA) [Mass fraction] 93 % Dr. Billy Braga DO Work Phone: [facility] 07-04-2025 04:37-0400 Systolic blood pressure 108 mm[Hg] Dr. Billy Braga DO Work Phone: [facility] 07-04-2025 01:17-0400 Body height 180.[address] Billy Braga DO Work Phone: [facility] 07-04-2025 01:17-0400 Body mass index (BMI) [Ratio] 39.2 kg/m2 Dr. Billy Braga DO Work Phone: [facility] 07-04-2025 01:17-0400 Body weight 127.[address] Billy Braga DO Work Phone: [facility] 07-03-2025 08:03-0400 Body temperature 97.9 [degF] Dr. Billy Braga DO Work Phone: [facility] 07-03-2025 08:03-0400 Diastolic blood pressure 69 mm[Hg] Dr. Billy Braga DO Work Phone: [facility] 07-03-2025 08:03-0400 Heart rate 67 /min Dr. Billy Braga DO Work Phone: [facility] 07-03-2025 08:03-0400 Respiratory rate 16 /min Dr. Billy Braga DO Work Phone: [facility] 07-03-2025 08:03-0400 SaO2% (BldA) [Mass fraction] 97 % Dr. Billy Braga DO Work Phone: [facility] 07-03-2025 08:03-0400 Systolic blood pressure 151 mm[Hg] Dr. Billy Braga DO Work Phone: [facility] 07-03-2025 06:45-0400 Body height 180.[address] Billy Braga DO Work Phone: [facility] 07-03-2025 06:45-0400 Body mass index (BMI) [Ratio] 37.7 kg/m2 Dr. Billy Braga DO Work Phone: [facility] 07-03-2025 06:45-0400 Body weight 122.[address] Billy Braga DO Work Phone: [facility] 12-26-2022 17:42-0500 Body temperature 98 [degF] [facility] 12-26-2022 17:42-0500 Diastolic blood pressure 88 mm[Hg] [facility] 12-26-2022 17:42-0500 Heart rate 67 /min [facility] 12-26-2022 17:42-0500 Respiratory rate 18 /min [facility] 12-26-2022 17:42-0500 SaO2% (BldA) [Mass fraction] 92 % [facility] 12-26-2022 17:42-0500 Systolic blood pressure 123 mm[Hg] [facility] 12-26-2022 15:22-0500 Body height 180.34 cm [facility] 12-26-2022 15:22-0500 Body mass index (BMI) [Ratio] 38.1 kg/m2 [facility] 12-26-2022 15:22-0500 Body weight 124.1 kg [facility] Encounters Encounter Date Encounter Type Care Provider Facility Start: 08-12-2025 ambulatory Billy Braga Facility: [facility] Start: 07-20-2025 ambulatory Umer Rivera Facility :[facility] Start: 07-17-2025 ambulatory Lois Oconnor Facility:[facility] Start: 07-06-2025 ambulatory Kandi Hou Facility:[facility] Start: 07-06-2025 Evaluation and management of inpatient Kandi Hou Facility:[facility] Start: 07-06-2025 Non-patient / Non-visit Dr. Jerrell martines DO -[facility] Work Phone: Start: 07-05-2025 Non-patient / Non-visit Dr. Tigre jordan MD -[facility] Work Phone: Start: 07-04-2025 Non-patient / Non-visit Dr. Umer hines MD -[facility] Start: 07-04-2025 End: 07-06-2025 Evaluation and management of inpatient Dr. Amarilis Tillman MD -[facility] Work Phone: Start: 07-04-2025 End: 07-06-[address] Billy Braga DO Work Phone: -[facility] Start: 07-04-2025 End: 07-06-2025 ambulatory Umer Rivera Facility:[facility] Start: 07-04-2025 Non-patient / Non-visit Dr. Amarilis Tillman MD -[facility] Work Phone: Start: 07-03-2025 End: 07-03-2025 Emergency department patient visit Dr. Billy Braga DO Work Phone: -Emergency Department Work Phone: Start: 12-26-2022 End: 12-26-2022 Emergency department patient visit [facility]-Emergency Department Procedures Date Procedure Procedure Detail Performing [...] Detail Author Start: 07-06-2025 Patient discharge [facility] Start: 07-05-2025 [facility] Start: 07-04-2025 Application of inter mittent pneumatic compression device [facility] Start: 07-04-2025 Assessment of risk o f venous thromboembolism [facility] Start: 07-04-2025 Care regimes management [facility] Start: 07-04-2025 Consultation [facility] Start: 07-04-2025 Fall prevention [facility] Start: 07-04-2025 Inhalation therapy procedure [facility] Start: 07-04-2025 Insertion of cathete r into peripheral vein [facility] Start: 07-04-2025 Introduction of urin nathan catheter [facility] Start: 07-04-2025 Measuring intake and output [facility] Start: 07-04-2025 Notification of physician [facility] Start: 07-04-2025 Oxygen therapy [facility] Start: 07-04-2025 Providing care accor ding to standard [facility] Start: 07-04-2025 Provision of activit y privileges [facility] Start: 07-04-2025 Referral to occupati onal therapist [facility] Start: 07-04-2025 Referral to service [facility] Start: 07-04-2025 End: 07-04-2025 [facility] Start: 07-04-2025 Following clinical p athway protocol [facility] Start: 07-04-2025 Verification routine [facility] Start: 07-04-2025 Admission procedure [facility] Start: 07-04-2025 Hospital admission, emergency, from emergency room, medical nature [facility] Start: 07-04-2025 Application of ice c ollar, cap or bag [facility] Start: 07-03-2025 [facility] Magnesium measurement [facility] Patient Education What Is Heart Failure [facility] Work Phone: Patient referral [facility] Work Phone: Immunizations Immunization Date Immunization Notes Care Provider Fa doug 07-03-2025 tetanus toxoid, redu pj diphtheria toxoid, and acellular pertussis vaccine, adsorbed Dr. Billy Braga DO Work Phone: [facility] 02-12-2025 [facility] Billy Braga DO Work Phone: [facility] 08-06-2024 influenza, high dose seasonal, preservative-free Dr. Billy Braga DO Work Phone: [facility] 07-31-2023 influenza, injectabl e, quadrivalent, preservative free Dr. Billy Braga DO Work Phone: [facility] 01-04-2023 Covid Pfizer Bivalen t Booster Dr. Billy Braga DO Work Phone: [facility] 08-29-2021 Covid (Pfizer) Dr. Billy lindsay DO Work Phone: [facility] 01-18-2021 Covid (Pfizer) Dr. Billy lindsay DO Work Phone: [facility] 12-29-2020 Covid (Pfizer) Dr. Billy lindsay DO Work Phone: [facility] 09-24-2020 influenza, injectabl e, quadrivalent, preservative free Dr. Billy Barga DO Work Phone: [facility] 04-21-2019 tetanus toxoid, redu pj diphtheria toxoid, and acellular pertussis vaccine, adsorbed [facility] 01-21-[address] Billy Braga DO Work Phone: [facility] 11-11-[address] Billy Braga DO Work Phone: [facility] 08-30-2016 zoster vaccine, live Dr. Andra Braga DO Work Phone: [facility] 07-15-2015 pneumococcal conjuga te vaccine, [address] Billy Braga DO Work Phone: [facility] 03-10-2013 diphtheria, tetanus toxoids and acellular pertussis vaccine Dr. Billy Braga DO Work Phone: [facility] 03-10-2013 pneumococcal vaccine , unspecified formulation Dr. Billy Braga DO Work Phone: [facility] Payers Date Payer Category Payer Medicare [id number] 2025 Self-pay [id number] 2025 Self-pay [id number] Unknown [id number] Unknown [place] AUTH REQUIR ED SEE NOTE [id number] Unknown [id number] [id number]2 Unknown [id number] 2.840.1.595124.3.579.2.462 Unknown [id number] 2.16840.1.418073.3.579.2.462 Unknown [id number] 2.16.840.1.414035.3.579.2.462 Unknown [id number] 2.16.840.1.909076.3.579.2.462 Unknown [id number] 2.16.840.1.067768.3.579.2.462 Unknown [id number] 2.16.840.1.238594.3.579.2.462 Unknown [id number] 2.16.840.1.608148.3.579.2.462 Unknown [id number] 2.16.840.1.502152.3.579.2.462 Unknown [id number] 2.16.840.1.780165.3.579.2.462 Unknown [id number] 2.16.840.1.685059.3.579.2.462 Unknown [id number] 2.16.840.1.731422.3.579.2.462 Unknown [id number] 2.16.840.1.778022.3.579.2.462 Unknown [id number] 2.16.840.1.426660.3.579.2.462 Unknown [id number] 2.16.840.1.687366.3.579.2.462 Unknown [id number] 2.16.840.1.623525.3.579.2.462 Unknown [id number] 2.16.840.1.743675.3.579.2.462 Unknown [id number] 2.16.840.1.821038.3.579.2.462 Unknown [id number] 2.16.840.1.779286.3.579.2.462 Unknown [id number] 2.16.840.1.614647.3.579.2.462 Unknown [id number] 2.16.840.1.894722.3.579.2.462 Unknown [id number] 2.16.840.1.887050.3.579.2.462 Unknown [id number] 2.16.840.1.817127.3.579.2.462 Social History Date Type Detail Facility Start: 12-26-2022 Tobacco smoking stat us UTIS Unknown if ever smoked [facility] Start: 1945 Sex Assigned At Male [facility] Start: 07-03-2025 End: 07-04-2025 Tobacco smoking status NHIS Never smoked tobacco (finding) [facility] Goals Date Patient Goal Desired Activity /State Functional Status Date Assessment Result Facility 07-06-2025 Functional status Ambulates [facility] Work Phone: Mental Status Date Assessment Result Facility 07-06-2025 Cognitive function Awake;Alert;A ppropriate;Foll ows Commands [facility] Work Phone: 07-06-2025 Cognitive function Appropriate;Cooperativ e [facility] Work Phone: 07-05-2025 Cognitive function Arousable To Voice/Nam e [facility] Work Phone: Clinical Notes 12-26-2022 to 07-17-2025 Note Date & Type Note Facility 07-17-2025 Note [facility] Medical Records Department [address] [place] [address] Discharge Summary 07/17/25 1150 MR#: [id number] Acct: [id number] Name: KANDI GOMEZ Rep #: [id number] : 1945 80 From: Lois Oconnor DO PCP: Dr. Billy Braga DO Status:ADM IN Location: [place] [address]-1 Providers Date of Admission: 07/06/25 Date of Discharge: 07/17/25 Primary Care Physician: Dr. Billy Braga [facility] [place] Consultations 07/07/25 09:26 Consult: Plastic Surgery Routine Consulting Provider: Kandi Hou Reason for Consult: R hand laceration EMERGENT Consult: No MD Notified: Yes Date Notified: 07/07/25 Time Notified: 09:27 Method of Notification: Verbal Reason For Visit: LT HUMERAL FX Diagnosis Discharge Diagnosis (1) Physical debility: Status: Acute Code(s): R53.81 - Other malaise (2) Falls: Status: Inactive Code(s): R29.6 - Repeated falls (3) Left humeral fracture: Status: Acute Code(s): S42.302A - Unspecified fracture of shaft of humerus, left arm, initial encounter for closed fracture Qualifiers: Encounter type: initial encounter Humerus Location: surgical neck Fracture type: closed F racture morphology: 2-part Fracture alignment: displaced Qualified Code(s): S42.222A - 2-part displaced fracture of surgical neck of left humerus, initial encounter for closed fracture (4) Hand laceration: Status: Acute Code(s): S61.419A - Laceration without foreign body of unspecified hand, initial encounter Qualifiers: Encounter type: subsequent encounter Foreign body presence: without foreign body L aterality: right Qualified Code(s): S61.411D - Laceration without foreign body of right hand, subsequent encounter (5) Cellulitis: Status: Resolved Code(s): L03.90 - Cellulitis, unspecified Qualifiers: Site of cellulitis: extremity Site of cellulitis of extremity: upper extremity Laterality: right Qualified Code(s): L03.113 - Cellulitis of right upper limb (6) Heme + stool: Status: Acute Code(s): R19.5 - Other fecal abnormalities (7) Elevated serum creatinine: Status: Resolved Code(s): R79.89 - Other specified abnormal findings of blood chemistry Plan: Resolved with discontinuing furosemide. At the time of DC from rehab the creat is back to baseline of 1.15. He has no ankle edema and the lungs are CTA with good air exchange. (8) Hyperkalemia: Status: Resolved Code(s): E87.5 - Hyperkalemia Plan: Resolved with improvement in the creat with discontinuation of Lasix. Creat at DC is 4.7. (9) Chronic anemia: Status: Chronic Code(s): D64.9 - Anemia, unspecified Plan: Iron studies were negative for iron deficiency. Stool is heme +. (10) Hyperbilirubinemia: Status: Chronic Code(s): E80.6 - Other disorders of bilirubin metabolism Plan: Conjugated bilirubin elevation. W/U negative for hemolysis. Likely genetic. (11) PAF (paroxysmal atrial fibrillation): Status: Chronic Code(s): I48.0 - Paroxysmal atrial fibrillation (12) Chronic anticoagulation: Status: Chronic Code(s): Z79.01 - [facility] (current) use of anticoagulants Plan: Will continue Eliquis 5 mg BID. (13) Diabetes mellitus type II, controlled: Status: Chronic Code(s): E11.9 - Type 2 diabetes mellitus without complications Plan: Well controlled on diet and Metformin with HGBA1C less than 7. (14) HTN (hypertension): Status: Chronic Code(s): I10 - Essential (primary) hypertension Qualifiers: Hypertension type: primary hypertension Qualified Code(s): I10 - Essential (primary) hypertension Plan: BP was low and he c/o lightheadedness. Amlodipine was discontinued and the BP is well controlled without Amlodipine. BP at Dc from rehab ranged from 110/47 to 122/72 for 48 hours prior to discharge. (15) HLD (hyperlipidemia): Status: Chronic Code(s): E78.5 - Hyperlipidemia, unspecified Qualifiers: Hyperlipidemia type: unspecified Qualified Code(s): E78.5 - Hyperlipidemia, unspecified (16) Hypothyroidism: Status: Chronic Code(s): E03.9 - Hypothyroidism, unspecified Qualifiers: Hypothyroidism type: unspecified Qualified Code(s): E03.9 - Hypothyroidism, unspecified Plan: TSH on 07/07/2025 was 3.32. (17) Obesity: Status: Chronic Code(s): E66.9 - Obesity, unspecified Qualifiers: Obesity type: due to excess calories Obesity classification: adult class 2 (BMI 35 - 39.9) Serious obesity comorbidity presence: with serious comorbidity Body mass index: BMI 35.0-35.9 Q ualified Code(s): E66.812 - Obesity, class 2; E66.01 - Morbid (severe) obesity due to excess calories; Z68.35 - Body mass index [BMI] 35.0-35.9, adult (18) S/P AVR (aortic valve replacement): Status: Chronic Code(s): Z95.2 - Presence of prosthetic heart valve (19) S/P CABG x 1: Status: Chronic Code(s): Z95.1 - Presence of aortocoronary bypass graft (20) History of cardioversion: Status: Chronic Code(s) (more content not included)... [facility] 07-07-2025 Note [facility] Medical Records Department [address] [place] [address] History Physical Exam 07/07/25 08 MR#: [id number] Acct: [id number] Name: KANDI GOMEZ Rep #: [id number] : 1945 80 From: Lois Oconnor DO PCP: Dr. 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 He had a laceration of the R hand which was repaired and he was sent home. The next day he had another mechanical fall going up 2 steps and he landed on his left side. XRAY showed a comminuted fracture of the L humerus. He was seen by ortho who recommended a sling and OP F/U to discuss conservative management vs shoulder replacement. He was admitted to the hospitalist service. He was seen by PT and OP therapy was recommended but, he has no BR on the first floor of his home and he fell on the steps fracturing his L humerus. He was transferred to the acute inpt rehab unit at [facility] on 07/06/25 for 3 hours of therapy daily to restore function/independence at or near his level prior to the fall. Sutures in the right hand can come out on Sunday. All lab drawn this morning was personally reviewed. The white blood cell count is 9.1 with 75% neutrophils. Hemoglobin is stable at 11.5. MCV is elevated at 97.8 and the RDW is elevated at 50.4. Platelets are within normal limits. Sodium is 142 and the potassium is 4.3. The BUN is 30 with a creatinine 1.29 which is up from 1.16 on 07/06/2025. Total bilirubin is elevated at 1.87 but the remainder the LFTs are within normal limits. Magnesium is 1.9 and the phosphorus is 3.2. Calcium is within normal limits. Looking at previous labs that have been done his bili is always elevated. [facility] Medical History (Updated 07/07/25 @ 11:[address] Lois Oconnor, DO) Chronic anticoagulation History of skin cancer History of cardioversion Primary osteoarthritis of right knee PAF (paroxysmal atrial fibrillation) Obesity Chronic anemia CAD (coronary artery disease) Hypothyroidism Diabetes mellitus type II, controlled HLD (hyperlipidemia) HTN (hypertension) Valvular heart disease Home Medications ???Medication ???Instructions ???Recorded ???Last Taken ???Type metformin 500 mg tablet 500 mg PO DAILY DIABETES 02/21/18 02/21/18 History 500 MG metoprolol tartrate 25 mg tablet 25 mg PO BID BLOOD PRESSURE 07/06/25 History cholecalciferol (vitamin D3) 50 2,000 unit PO DAILY supplement Unknown History mcg (2,000 unit) capsule (Vitamin D3) apixaban 5 mg tablet (Eliquis) 5 mg PO BID prophylaxes 07/03/25 U nknown History aspirin 81 mg capsule 81 mg PO DAILY heart health 07/06/25 History atorvastatin 10 mg tablet (Lipitor) 10 mg PO QHS cholesterol 07/05/25 History furosemide 40 mg tablet (Lasix) 20 mg PO DAILY fluid 07/03/2506/22 History levothyroxine 75 mcg tablet 75 mcg PO DAILY thyroid 07/03/25 0 07/06/25 History (Synthroid) lisinopril 10 mg tablet 5 mg PO DAILY blood pressure 07/0307/06/25 History tamsulosin 0.4 mg capsule 0.4 mg PO DAILY retention 07/03/25 07/06/25 History amlodipine 2.5 mg tablet 2.5 mg PO DAILY blood pressure 04/2207/06/25 History oxycodone 5 mg tablet 5 mg PO Q4H PRN Pain Score 1-10 07/05/25 History Allergy/AdvReac Type Severity Reaction Status Date / Time Penicillins Allergy Other Verified 07/03/25 06:45 Family History Mother Cancer Father Heart failure Surgical History (Updated 07/07/25 @ 10:[address] Lois Oconnor DO) History of bilateral cataract extraction History of tonsillectomy and adenoidectomy S/P AVR (aortic valve replacement) S/P CABG x 1 Social History (Updated 07/07/25 @ 10:[address] Lois Oconnor DO) household members: spouse housing: house Smoking Status: Former smoker how long ago did patient quit smokin years ago alcohol intake: never substance use type: does not use ROS Review of Systems ROS Unobtainable: Denies due to encephalopathy, due to endotracheal tube, due to mental condition or due to mental status Constitutional Constitutional: Reports daytime sleepiness; Denies anorexia, change in weight, chills, fatigue, fever(s), night sweats or weakness Eyes Eyes: Denies blurry vision, change in vision, eye pain or loss of vision ENT HEENT: Denies abnormal hearing, dysphagi (more content not included)... [facility] 07-06-2025 Consult note [facility] 07-06-2025 Discharge summary Note Date/Time July 06, 2025 11:34am [facility] Medical Records Department [address] [place] [address] Discharge Summary 07/06/25 1132 MR#: [id number] Acct: [id number] Name: KANDI GOMEZ Rep #:[id number] : 1945 80 From: Jerrell Esquivel DO PCP: Dr. Billy Braga DO Status:ADM LILY Location: [place] [address] Providers Date of Admission: 07/04/25 Primary Care [...] 78.8 H, Lymph % (Auto) 7.3 L, [place] % (Auto) 10.5 H, Eos % (Auto) [...] Rehab Unit/Facility Charges/Coding Visit Charges Inpatient E&M: 22273 Disch Hosp 07/06/25 1134 <Electronically signed by Jerrell Esquivel DO> Cosigner Signature (if applicable): CC: Dr. Jerrell Esquivel DO; Dr. Billy Braga DO~ Signed [facility] Work Phone: 1(709) 485-614109-08-2025 Progress note Author Jerrell Esquivel [facility] Note Date/Time July 06, 2025 11:32am [facility] Medical Records Department [address] [place] [address] Progress Note - Hospitalist 07/06/25909 MR#: [id number] Acct: [id number] Name: KANDI GOMEZ Rep #:[id number] : 1945 80 From: Jerrell Esquivel DO PCP: Dr. Billy Braga, DO Status:ADM LILY Location: [place] [id number] Reason for Visit Chief Complaint: Fall, LUE [...] 78.8 H, Lymph % (Auto) 7.3 L, [place] % (Auto) 10.5 H, Eos % (Auto) [...] Cosigner Signature (if applicable): CC: ~ Signed [facility] Work Phone: 1(118) 504-747209-08-2025 Discharge summary [facility] Medical Records Department [address] [place] [address] Discharge Summary 07/06/25 1132 MR#: [id number] Acct: [id number] Name: KANDI GOMEZ Rep #:[id number] : 1945 80 From: Jerrell Esquivel DO PCP: Dr. Billy Braga DO Status:ADM LILY Location: [place] [address] Providers Date of Admission: 07/04/25 Primary Care [...] 78.8 H, Lymph % (Auto) 7.3 L, [place] % (Auto) 10.5 H, Eos % (Auto) [...] Rehab Unit/Facility Charges/Coding Visit Charges Inpatient E&M: 10619 Disch Hosp 07/06/25 1134 Cosigner Signature (if applicable): CC: Dr. Jerrell Esquivel DO; Dr. Billy Braga DO~ Signed [facility]09-08-2025 [facility] Medical Records Department [address] [place] [address] Discharge Summary 07/06/25 1132 MR#: [id number] Acct: [id number] Name: KANDI GOMEZ Rep #: [id number] : 1945 80 From: Jerrell Esqiuvel DO PCP: Dr. Billy Braga DO Status:ADM LILY Location: [place] [address]-1 Providers Date of Admission: 07/04/25 Primary Care [...] 78.8 H, Lymph % (Auto) 7.3 L, [place] % (Auto) 10.5 H, Eos % (Auto) [...] O2, CPAP, BIPAP Needs (more content not included)...[facility]09-08-2025 Progress note [facility] Medical Records Department [address] [place] [address] Progress Note - Hospitalist 07/06/25 0910 MR#: [id number] Acct: [id number] Name: KANDI GOMEZ Rep #:[id number] : 1945 80 From: Jerrell Esquivel DO PCP: Dr. Billy Braga, DO Status:ADM LILY Location: [place]3 CC145-7 Reason for Visit Chief Complaint: Fall, LUE [...] 78.8 H, Lymph % (Auto) 7.3 L, [place] % (Auto) 10.5 H, Eos % (Auto) [...] Cosigner Signature (if applicable): CC: ~ Signed [facility]09-07-2025 Progress note Author Tigre Figueroa [facility] Note Date/Time July 05, 2025 7:48am [facility] Medical Records Department [address] [place] [address] Progress Note - Hospitalist 07/05/2529 MR#: [id number] Acct: [id number] Name: KANDI GOMEZ Rep #:[id number] : 1945 80 From: Tigre Figueroa MD PCP: Dr. Billy Braga, DO Status:ADM LILY Location: [place] [address] Reason for Visit Chief Complaint: Fall, LUE [...] documentation, 35Minutes Charges/Coding Visit Charges Inpatient E&M: 59620 Subs Hosp L2 07/05/25 0748 <Electronically signed by Tigre Figueroa MD> Cosigner Signature (if applicable): CC: ~ Signed [facility] Work Phone: 1(293) 555-610509-07-2025 Progress note [facility] Medical Records Department [address] [place] [address] Progress Note - Hospitalist 07/05/25728 MR#: [id number] Acct: [id number] Name: KANDI GOMEZ Rep #:[id number] : 1945 80 From: Tigre Figueroa MD PCP: Dr. Billy Braga, DO Status:ADM LILY Location: [address] Reason for Visit Chief Complaint: Fall, LUE [...] documentation, 35Minutes Charges/Coding Visit Charges Inpatient E&M: 66154 Subs Hosp L2 07/05/25 0748 Cosigner Signature (if applicable): CC: ~ Signed [facility]09-06-2025 Consult note Author Umer Rivera [facility] Note Date/Time July 04, 2025 9:32am [facility] Medical Records Department [address] [place] [address] Consultation - Orthopedics 07/04/25 0930 MR#: [id number] Acct: [id number] Name: KANDI GOMEZ Rep #:[id number] : 1945 80 From: Umer Rivera MD PCP: Dr. Billy Braga, DO Status:ADM LILY Location: [place] [address]-1 HPI Consult Data Date of Consult: 07/04/25 HPI Narrative HPI Narrative: KANDI GOMEZ, is a 80 M who presents with L proximal humerus fracture after multiple falls. [facility] Medical History (Updated 07/04/25 @ 08:[address] Tigre Figueroa MD) PAF (paroxysmal atrial fibrillation) Obesity Chronic anemia CAD (coronary artery disease) Hypothyroidism Diabetes mellitus type II, controlled HLD (hyperlipidemia) HTN (hypertension) Valvular heart disease Home Medications ?Medication ?Instructions ?Recorded ?Last Taken ?Type metformin 500 mg tablet 500 mg PO DAILY DIABETES 04/ 26/18 04/26/18 History 500 MG metoprolol tartrate 25 mg tablet 25 mg PO BID BLOOD WA ESSURE 02/21/18 02/21/18 History 25 MG cholecalciferol [...] 79.6 H, Lymph % (Auto) 6.9 L, [place] % (Auto) 9.9, Eos % (Auto) 2.2, [...] mild brain involutional changes. stable Reading Location: [place] [address] 07/04/25 01:53 IMPRESSION: No newly developed vertebral fractures, structural collapse or dislocation. Stable study findings as detailed. Reading Location: [place] [address] Humerus X-Ray 07/04/25 02:30 IMPRESSION: Acute comminuted displaced fractures of the humeral surgical neck. Overlying soft tissue edema and swelling. Reading Location: [place] [address] Shoulder X-Ray 07/04/25 02:30 IMPRESSION: Acute comminuted displaced fractures of the humeral surgical neck. Overlying soft tissue edema and swelling. Reading Location: [place] [address] Assessment & Plan Assessment/Plan (1) Left humeral [...] applicable): CC: Dr. Billy Braga, DO~ Signed [facility] Work Phone: 1(519) 108-848009-06-2025 Progress note Author Tigre Figueroa [facility] Note Date/Time July 04, 2025 8:50am [facility] Medical Records Department [address] [place] [address] Progress Note - Hospitalist 07/04/25 0718 MR#: [id number] Acct: [id number] Name: KANDI GOMEZ Rep #:[id number] : 1945 80 From: Tigre Figueroa MD PCP: Dr. Billy Braga, DO Status:ADM LILY Location: [place] [address] Reason for Visit Chief Complaint: Fall, LUE [...] 79.6 H, Lymph % (Auto) 6.9 L, [place] % (Auto) 9.9, Eos % (Auto) 2.2, [...] mild brain involutional changes. stable Reading Location: [place] [address] 07/04/25 01:53 IMPRESSION: No newly developed vertebral fractures, structural collapse or dislocation. Stable study findings as detailed. Reading Location: [place] [address] Humerus X-Ray 07/04/25 02:30 IMPRESSION: Acute comminuted displaced fractures of the humeral surgical neck. Overlying soft tissue edema and swelling. Reading Location: [place] [address] Shoulder X-Ray 07/04/25 02:30 IMPRESSION: Acute comminuted displaced fractures of the humeral surgical neck. Overlying soft tissue edema and swelling. Reading Location: [place] [address] Physical Exam Narrative GENERAL: cooperative HEENT: Atraumatic; [...] documentation, 40Minutes Charges/Coding Visit Charges Inpatient E&M: 74833 Subs Hosp L2 07/04/25 0850 <Electronically signed by Tigre Figueroa MD> Cosigner Signature (if applicable): CC: ~ Signed [facility] Work Phone: 1(331) 284-257309-06-2025 Consult note [facility] Medical Records Department [facility] [place] [address] [address] Consultation - Orthopedics 07/04/25929 MR#: [id number] Acct: [id number] Name: KANDI GOMEZ Rep #:[id number] : 1945 80 From: Umer Rivera MD PCP: Dr. Billy Braga, DO Status:ADM LILY Location: [facility] [id number] HPI Consult Data Date of Consult: 07/04/25 HPI Narrative HPI Narrative: KANDI GOMEZ is a 80 M who presents with L proximal humerus fracture after multiple falls. [facility] Medical History (Updated 07/04/25 @ 08:50 [...] mg tablet 25 mg PO BID BLOOD WA ESSURE 02/21/18 02/21/18 History 25 MG cholecalciferol [...] 79.6 H, Lymph % (Auto) 6.9 L, [place] % (Auto) 9.9, Eos % (Auto) 2.2, [...] mild brain involutional changes. stable Reading Location: [place] [address] 07/04/25 01:53 IMPRESSION: No newly developed vertebral fractures, structural collapse or dislocation. Stable study findings as detailed. Reading Location: [place] [address] Humerus X-Ray 07/04/25 02:30 IMPRESSION: Acute comminuted displaced fractures of the humeral surgical neck. Overlying soft tissue edema and swelling. Reading Location: [place] [address] Shoulder X-Ray 07/04/25 02:30 IMPRESSION: Acute comminuted displaced fractures of the humeral surgical neck. Overlying soft tissue edema and swelling. Reading Location: [place] [address] Assessment & Plan Assessment/Plan (1) Left humeral [...] applicable): CC: Dr. Billy Braga, DO~ Signed [facility]09-06-2025 Progress note [facility] Medical Records Department [address] [facility] [place] [address] Progress Note - Hospitalist 07/04/25 0718 MR#: [id number] Acct: [id number] Name: KANDI GOMEZ Rep #:[id number] : 1945 80 From: Tigre Figueroa MD PCP: Dr. Billy Braga, Status:ADM LILY Location: [place] [id number] Reason for Visit Chief Complaint: Fall, LUE [...] 79.6 H, Lymph % (Auto) 6.9 L, [place] % (Auto) 9.9, Eos % (Auto) 2.2, [...] mild brain involutional changes. stable Reading Location: [place] [address] 07/04/25 01:53 IMPRESSION: No newly developed vertebral fractures, structural collapse or dislocation. Stable study findings as detailed. Reading Location: [place] [address] Humerus X-Ray 07/04/25 02:30 IMPRESSION: Acute comminuted displaced fractures of the humeral surgical neck. Overlying soft tissue edema and swelling. Reading Location: [place] [address] Shoulder X-Ray 07/04/25 02:30 IMPRESSION: Acute comminuted displaced fractures of the humeral surgical neck. Overlying soft tissue edema and swelling. Reading Location: [place] [address] Physical Exam Narrative GENERAL: cooperative HEENT: Atraumatic; [...] documentation, 40Minutes Charges/Coding Visit Charges Inpatient E&M: 25740 Subs Hosp L2 07/04/25 0850 Cosigner Signature (if applicable): CC: ~ Signed [facility]09-06-2025 History and physical note Author Amarilis Tillman [facility] Note Date/Time July 04, 2025 4:33am [facility] Medical Records Department [address] [place] [address] H&P Exam - Hospitalist 07/04/25 0413 MR#: [id number] Acct: [id number] Name: KANDI GOMEZ Rep #:[id number] : 1945 80 From: Amarilis Tillman MD [...] discharged to home now re-presenting to the [facility] ED on 07/04/2025 with another mechanical fall [...] no acute surgical plans per ED report. [facility] Medical History (Updated 07/04/25 @ 04:28 [...] mg tablet 25 mg PO BID BLOOD WA ESSURE 02/21/18 02/21/18 History 25 MG cholecalciferol [...] 79.6 H, Lymph % (Auto) 6.9 L, [place] % (Auto) 9.9, Eos % (Auto) 2.2, [...] mild brain involutional changes. stable Reading Location: [place] [address] 07/04/25 01:53 IMPRESSION: No newly developed vertebral fractures, structural collapse or dislocation. Stable study findings as detailed. Reading Location: [place] [address] Humerus X-Ray 07/04/25 02:30 IMPRESSION: Acute comminuted displaced fractures of the humeral surgical neck. Overlying soft tissue edema and swelling. Reading Location: [place] [address] Shoulder X-Ray 07/04/25 02:30 IMPRESSION: Acute comminuted displaced fractures of the humeral surgical neck. Overlying soft tissue edema and swelling. Reading Location: [place] [address] Assessment & Plan Assessment/Plan (1) Left humeral [...] discharged to home now re-presenting to the [facility] ED on 07/04/2025 with another mechanical fall [...] [facility], no recent echocardiogram noted in [facility] system. #5. CAD: Status post CABG x [...] Code status.. Charges/Coding Visit Charges Inpatient E&M: 55713 Init Hosp L3 07/04/25 0433 <Electronically signed by Amarilis Tillman MD> Cosigner Signature (if applicable): CC: Dr. Amarilis Tillman MD; Dr. Billy Braga DO~ Signed [facility] Work Phone: 1(475) 861-132009-06-2025 Evaluation note* Diagnosis Onset Date Resolution Status Admit Date Left humeral fracture acute Sep ber 2024 4:14am [facility] Work Phone: 1(469) 364-392209-06-2025 Discharge summary Author Randy Arthur [facility] Note Date/Time July 04, 2025 4:12am [facility] Medical Records Department [address] [place] [address] Emergency Department Summary 07/04/25 MR#: [id number] Acct: [id number] Name: KANDI GOMEZ Rep #:[id number] : 1945 80 From: Randy Marroquin PCP: Dr. Billy Braga DO Status:REG ER Location: ED HPI History of Present Illness Chief Complaint: Fall [facility] Medical History Tonsil and adenoid disease, chronic Hernia Coronary atherosclerosis due to severely calcified coronary lesion Home Medications ?Medication ?Instructions ?Recorded ?Last Taken ?Type metformin 500 mg tablet 500 mg PO BIDCM DIABETES 02/21/18 History 500 MG metoprolol tartrate 25 mg tablet 25 mg PO BID BLOOD WA ESSURE 02/21/18 02/21/18 History 25 MG cholecalciferol [...] Response: 6 Secondary Survey Constitutional: Please see [facility] Head: Atraumatic, Midface stable, NO jaw malocclusion, [...] MEDICAL DECISION MAKING: Chief Complaint: please see [facility] External records reviewed: Reviewed prior imaging studies Factors affecting care: Social determinants of health: none History obtained from others: EMS Consults: Internal Medicine (Dr. Tillman), orthopedic surgery (Dr. Rivera) [facility] Narrative: The patient was initially hemodynamically stable, [...] History of chronic anticoagulation Dispo: Admit to [facility] This note was generated with [employer] dictation software. It may contain incorrectwords, spelling, [...] 79.6 H Lymph % (Auto) 6.9 L [place] % (Auto) 9.9 Eos % (Auto) 2.2 [...] mild brain involutional changes. stable Reading Location: [facility] [facility] 07/04/25 01:53 IMPRESSION: No newly developed vertebral fractures, structural collapse or dislocation. Stable study findings as detailed. Reading Location: [facility] Discharge Plan Triage Chief Complaint: Fall ED [...] DO [Primary Care Provider] - Print Language: Citizen Of [place] What to do if you have Problems For any increased pain, shortness of breath, bleeding, nausea or vomiting, chestpain, or any unexpected problems, contact your Primary Care Provider. Call [facility] ([phone]) or report to the closest Emergency Room. Call 911 if necessary. 07/04/252 <Electronically signed by Randy Gibson DO> Cosigner Signature (if applicable): CC: Dr. Billy Braga DO ~ Signed [facility] Work Phone: [phone] 810-153709-06-2025 History and physical note [facility] Medical Records Department [address] [place] [address] H&P Exam - Hospitalist 07/04/25 0413 MR#: [id number] Acct: [id number] Name: KANDI GOMEZ Rep #:[id number] : 1945 80 From: Amarilis Tillman MD [...] discharged to home now re-presenting to the [facility] ED on 07/04/2025 with another mechanical fall [...] no acute surgical plans per ED report. [facility] Medical History (Updated 07/04/25 @ 04:28 [...] mg tablet 25 mg PO BID BLOOD WA ESSURE 02/21/18 02/21/18 History 25 MG cholecalciferol [...] 79.6 H, Lymph % (Auto) 6.9 L, [place] % (Auto) 9.9, Eos % (Auto) 2.2, [...] mild brain involutional changes. stable [facility] 07/04/25 01:53 IMPRESSION: No newly developed vertebral fractures, structural collapse or dislocation. Stable study findings as detailed. Reading Location: [place] [address] Humerus X-Ray 07/04/25 02:30 IMPRESSION: Acute comminuted displaced fractures of the humeral surgical neck. Overlying soft tissue edema and swelling. [facility] Shoulder X-Ray 07/04/25 02:30 IMPRESSION: Acute comminuted displaced fractures of the humeral surgical neck. Overlying soft tissue edema and swelling. Reading Location: [place] [address] Assessment & Plan Assessment/Plan (1) Left humeral [...] discharged to home now re-presenting to the [facility] ED on 07/04/2025 with another mechanical fall [...] [place] echocardiogram noted in [employer] system. #5. CAD: Status post CABG x [...] Code status.. Charges/Coding Visit Charges Inpatient E&M: 20174 Init Hosp L3 07/04/25 0433 Cosigner Signature (if applicable): CC: Dr. Amarilis Tillman MD; Dr. Billy Braga DO~ Signed [facility]09-06-2025 Discharge summary [facility] Medical Records Department [address] [place] [address] Emergency Department Summary 07/04/25 MR#: [id number] Acct: [id number] Name: KANDI GOMEZ Rep #:[id number] : 1945 80 From: Randy Marroquin PCP: Dr. Billy Braga DO Status:REG ER Location: ED HPI History of Present Illness [facility] Medical History Tonsil and adenoid disease, chronic Hernia Coronary atherosclerosis due to severely calcified coronary lesion Home Medications ?Medication ?Instructions ?Recorded ?Last Taken ?Type metformin 500 mg tablet 500 mg PO BIDCM DIABETES 02/21/18 History 500 MG metoprolol tartrate 25 mg tablet 25 mg PO BID BLOOD WA ESSURE 02/21/18 02/21/18 History 25 MG cholecalciferol [...] [facility] of CAD[facility]. Notes he tripped going [...] History of chronic anticoagulation Dispo: Admit to [facility] This note was generated with YooLotto dictation software. It may contain incorrectwords, spelling, [...] 79.6 H Lymph % (Auto) 6.9 L [place] % (Auto) 9.9 Eos % (Auto) 2.2 [...] brain involutional changes. stable [facility] 07/04/25 01:53 IMPRESSION: No newly developed vertebral fractures, structural collapse or dislocation. Stable study findings as detailed. Reading Location: [place] [address] Discharge Plan Triage Chief Complaint: Fall ED [...] DO [Primary Care Provider] - Print Language: Citizen Of [place] What to do if you have Problems For any increased pain, shortness of breath, bleeding, nausea or vomiting, chestpain, or any unexpected problems, contact your Primary Care Provider. Call [facility] ([phone]) or report tothe closest Emergency Room. Call 911 if necessary. 07/04/25 0412 Cosigner Signature (if applicable): CC: Dr. Billy Braga DO ~ Signed [facility]09-06-2025 Radiology Diagnostic study note [facility] Imaging Services [address] [place], [place] [address] Humerus min 2 Views MR#: [id number] Acct: [id number] Name: KANDI GOMEZ Rep #: [id number] : 1945 M 80 From: Nadir Blevins MD PCP: Dr. Billy Braga DO Status: REG ER Study:Humerus min 2 Views Date of Exam: 07/04/25 Exam# [id number] Ordering Dr: Damion Gibson DO PROCEDURE: HUMERUS [...] soft tissue edema and swelling. Reading Location[facility] CC: Dr. Billy Braga DO; Dr. Randy Gibson DO ~ Supervisor Display Fabrication: Signed [facility]09-06-2025 Radiology Diagnostic study note [facility] Imaging Services [address] [place] [address] Shoulder min 2 Views MR#: [id number] Acct: [id number] Name: KANDI GOMEZ Rep #: [id number] : 1945 M 80 From: Nadir Blevins MD PCP: Dr. Billy Braga DO Status: REG ER Study:Shoulder min 2 Views Date of Exam: 07/04/25 Exam# [id number] Ordering Dr: Damion Gibson DO PROCEDURE: SHOULDER [...] soft tissue edema and swelling. Reading Location: [facility] CC: Dr. Billy Braga DO; Dr. Randy Gibson DO ~ Supervisor Display Fabrication: Signed [facility]09-06-2025 Radiology Diagnostic study note [facility] Imaging Services [address] [place] [address] Spine Cervical without Contras MR#: [id number] Acct: [id number] Name: KANDI GOMEZ Rep #: [id number] : 1945 M 80 From: Nadir Blevins MD PCP: Dr. Billy Braga DO Status: REG ER Study:Spine Cervical without Contras Date of Exam: 07/04/25 Exam# [id number] Ordering Dr: Damion Gibson DO PROCEDURE: SPINE [...] Stable study findings as detailed. Reading Location: [place] [address] CC: Dr. Billy Braga DO; Dr. Randy Gibson DO ~ Supervisor Display Fabrication: Signed [facility]09-06-2025 Radiology Diagnostic study note [facility] Imaging Services [address] [place] [address] Brain/Head without Contrast MR#: [id number] Acct: [id number] Name: KANDI GOMEZ Rep #: [id number] : 1945 M 80 From: Nadir Blevins MD PCP: Dr. Billy Braga DO Status: REG ER Study:Brain/Head without Contrast Date of Exa m: 07/04/25 Exam# [id number] Ordering Dr: Damion Gibson DO PROCEDURE: BRAIN/HEAD [...] brain involutional changes. stable [facility] CC: Dr. Billy Braga DO; Dr. Randy Gibson DO ~ Supervisor Display Fabrication: Signed [facility]09-05-2025 Discharge summary [facility] Medical Records Department [address] [place] [address] Emergency Department Summary 07/03/25 MR#: [id number] Acct: [id number] Name: KANDI GOMEZ Rep #:[id number] : 1945 80 From: Mj Ngo DO [...] of right hand pain and a cut. [facility] Medical History Tonsil and adenoid disease, chronic Hernia Coronary atherosclerosis due to severely calcified coronary lesion Home Medications ?Medication ?Instructions ?Recorded ?Last Taken ?Type metformin 500 mg tablet 500 mg PO BIDCM DIABETES 02/21/18 History 500 MG metoprolol tartrate 25 mg tablet 25 mg PO BID BLOOD WA ESSURE 02/21/18 02/21/18 History 25 MG cholecalciferol [...] following commands knew that he was at [facility] year is 2024 Skin: Warm, dry, [...] No acute intracranial process. 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 Possible fracture of the anterior osteophyte at C4. No other acute compression deformity, fracture, or subluxation. Moderate multilevel degenerative changes of the cervical spine with moderate central canal stenosismost prominent at C6-C7. Reading Location: [facility] Forearm X-Ray 07/03/25 07:11 IMPRESSION: No acute fracture or dislocations. Scattered mild degenerative changes. No acute soft tissue abnormalities. No radiographic foreign body. Reading Location: [facility] Hand X-Ray 07/03/25 07:11 IMPRESSION: No acute fracture or dislocations. Scattered mild degenerative changes. Mild soft tissue edema/contusion. No radiographic foreign body. Reading Location: [facility] Wrist X-Ray 07/03/25 07:11 IMPRESSION: No acute fracture or dislocations. Scattered mild degenerative changes. No acute soft tissue abnormalities. No radiographic foreign body. Reading Location: [facility] Discharge Plan Triage Chief Complaint: Fall ED Provider: Mj gNo Dx/Rx/DC Orders Clinical Impression: Closed head injury [...] symptoms or any other concerns Print Language: Citizen Of [place] Disposition Disposition: Home, Self Care What to do if you have Problems For any increased pain, shortness of breath, bleeding, nausea or vomiting, chestpain, or any unexpected problems, contact your Primary Care Provider. Call [facility] ([phone]) or report tothe closest Emergency Room. Call 911 if necessary. 07/03/25 0802 Cosigner Signature (if applicable): CC: Dr. Billy Braga DO ~ Signed [facility]09-05-2025 Radiology Diagnostic study note [facility] Imaging Services [address] [place] [address] Hand Min 3 Views MR#: [id number] Acct: [id number] Name: KANDI GOMEZ Rep #: [id number] : 1945 M 80 From: Barbara Palomino MD PCP: Dr. Billy Braga DO Status: REG ER Study:Hand Min 3 Views Date of Exam: 03/22 Exam# [id number] Ordering Dr: Damion Ngo DO PROCEDURE: HAND MIN 3 VIEWS 07/03/2025 REASON FOR EXAM: FALL, HAND LAC BASE OF TECHNIQUE: Procedure Code: GINNA Modality: DX Procedure: HAND MIN 3 VIEWS Laterality: COMPARISON: None RAD/Hand Min 3 Views IMPRESSION: No acute fracture or dislocations. Scattered mild degenerative changes. Mild soft tissue edema/contusion. No radiographic foreign body. Reading Location: [facility] CC: Dr. Billy Braga DO; Dr. Mj Ngo DO ~ Supervisor Display Fabrication: Signed [facility]09-05-2025 Radiology Diagnostic study note [facility] Services [address] [place] [address] Wrist min 3 Views MR#: [id number] Acct: [id number] Name: KANDI GOMEZ Rep #: [id number] : 1945 M 80 From: Barbara Palomino MD PCP: Dr. Billy Maria Luz, DO Status: REG ER Study:Wrist min 3 Views Date of Exam: Exam# [id number] Ordering Dr: Damion Ngo DO PROCEDURE: WRIST MIN 3 VIEWS 07/03/2025 REASON FOR EXAM: FALL TECHNIQUE: Procedure Code: RADWR Modality: DX Procedure: WRIST MIN 3 VIEWS COMPARISON: None RAD/Wrist min 3 Views IMPRESSION: No acute fracture or dislocations. Scattered mild degenerative changes. No acute soft tissue abnormalities. No radiographic foreign body. Reading Location: [facility] CC: Dr. Billy Braga DO; Dr. Mj Ngo DO ~ Supervisor Display Fabrication: Signed [facility]09-05-2025 Radiology Diagnostic study note [facility] Services [address] [place] [address] Forearm 2 Views MR#: [id number] Acct: [id number] Name: KANDI GOMEZ Rep #: [id number] : 1945 M 80 From: Barbara Palomino MD PCP: Dr. Billy Braga DO Status: REG ER Study:Forearm 2 Views Date of Exam: 03/22 Exam# [id number] Ordering Dr: Damion Ngo DO PROCEDURE: FOREARM 2 VIEWS 07/03/2025 REASON FOR EXAM: FALL TECHNIQUE: Procedure Code: RADFA Modality: DX Procedure: FOREARM 2 VIEWS COMPARISON: None RAD/Forearm 2 Views IMPRESSION: No acute fracture or dislocations. Scattered mild degenerative changes. No acute soft tissue abnormalities. No radiographic foreign body. Reading Location: [facility] CC: Dr. Billy Braga DO; Dr. Mj Ngo DO ~ Supervisor Display Fabrication: Signed [facility]09-05-2025 Radiology Diagnostic study note [facility] Imaging Services [address] [place] [address] Spine Cervical without Contras MR#: [id number] Acct: [id number] Name: KANDI GOMEZ Rep #: [id number] : 1945 M 80 From: Barbara Palomino MD PCP: Dr. Billy Braga DO Status: REG ER Study:Spine Cervical without Contras Date of Exam: 07/03/25 Exam# [id number] Ordering Dr: Damion Ngo DO PROCEDURE: SPINE [...] canal stenosismost prominent at C6-C7. Reading Location: [id number] CC: Dr. Billy Braga DO; Dr. Mj Ngo DO ~ Supervisor Display Fabrication: Signed [facility]09-05-2025 Radiology Diagnostic study note [facility] Imaging Services [address] [place] [address] Brain/Head without Contrast MR#: [id number] Acct: [id number] Name: KANDI GOMEZ Rep #: [id number] : 1945 M 80 From: Barbara Palomino MD PCP: Dr. Billy Braga DO Status: REG ER Study:Brain/Head without Contrast Date of Exa m: 07/03/25 Exam# [id number] Ordering Dr: Damion Ngo DO PROCEDURE: BRAIN/HEAD [...] IMPRESSION: No acute intracranial process. Reading Location: [id number] CC: Dr. Billy Braga DO; Dr. Mj Ngo DO ~ Supervisor Display Fabrication: Signed [facility]02-28-[address] Alford [facility] December 26, 2022 5:23pm Note Date/Time December 26, 2022 3:41pm [facility] Medical Records Department [address] [place] [address] Emergency Department Summary 12/26/22 MR#: [id number] Acct: [id number] Name: KANDI GOMEZ Rep #:[id number] : 1945 77 From: Sean Alford MD [...] normal stools. He is denying chest pain. [facility] Medical History (Updated 12/26/22 @ 17:21 [...] (Updated 03/26/18 @ 10:44 by Mendoza Shaffer, NET SOFTWARE DEVELOPER, GAUGE MAKER APPRENTICE, BS) Mother Cancer Father Heart failure Surgical [...] Oxygen Delivery Method Room Air Room Air [facility] Lab Data Labs: Laboratory Results - last 24 hr 12/26/22 12/26/22 12/26/22 15:33 15:33 15:33 WBC 9.8 RBC 4.36 L Hgb 13.4 Hct 43.6 MCV 100.0 H MCH 30.7 MCHC 30.7 L RDW Std Deviation 52.6 H RDW Coeff of Mukul 14.5 Plt Count 292 MPV 9.9 Immature Gran % (Auto) 0.600 Neut % (Auto) 75.5 H Lymph % (Auto) 12.5 L [place] % (Auto) 9.2 Eos % (Auto) 1.6 [...] rhythm with a rate of 69. Normal [place] and QTc intervals. No ischemic changes. Interpreted [...] [place] an echocardiogram since [...] your Primary Care Provider. Call [facility] ([phone]) or report to the closest Emergency Room. Call 911 if necessary. 12/26/22 1723 <Electronically signed by Sean Alford MD> Cosigner Signature (if applicable): CC: Dr. Billy Braga DO ~ Signed [facility] Work Phone: Consult note Author Romaine Bello [facility] Note Date/Time July 06, 2025 1:50pm [facility] Medical Records Department [address] [place] [address] Counseling Note - Pharmacy 07/06/25 1349 MR#: [id number] Acct: [id number] Name: KANDI GOMEZ Rep #:[id number] : 1945 80 From: Romaine Bello PCP: Dr. Billy Braga, DO Status:ADM LILY Y Location: MS3 [id number] [place] Med Reconciliation Pharmacy Service has performed discharge [...] Signature (if applicable): Date CC: ~ Signed [facility] Work Phone: Discharge summary Author Mj Ngo [facility] Note Date/Time July 03, 2025 8:02am [facility] Medical Records Department [address] [place] [address] Emergency Department Summary 07/03/25 MR#: [id number] Acct: [id number] Name: KANDI GOMEZ Rep #:[id number] : 1945 80 From: Mj Ngo DO [...] of right hand pain and a cut. [facility] Medical History Tonsil and adenoid disease, chronic Hernia Coronary atherosclerosis due to severely calcified coronary lesion Home Medications ?Medication ?Instructions ?Recorded ?Last Taken ?Type metformin 500 mg tablet 500 mg PO BIDCM DIABETES 02/21/18 History 500 MG metoprolol tartrate 25 mg tablet 25 mg PO BID BLOOD WA ESSURE 02/21/18 02/21/18 History 25 MG cholecalciferol [...] following commands knew that he was at [facility] year is 2024 Skin: Warm, dry, [...] No acute intracranial process. 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 Possible fracture of the anterior osteophyte at C4. No other acute compression deformity, fracture, or subluxation. Moderate multilevel degenerative changes of the cervical spine with moderate central canal stenosis most prominent at C6-C7. Reading Location: [facility] Forearm X-Ray 07/03/25 07:11 IMPRESSION: No acute fracture or dislocations. Scattered mild degenerative changes. No acute soft tissue abnormalities. No radiographic foreign body. Reading Location: [facility] Hand X-Ray 07/03/25 07:11 IMPRESSION: No acute fracture or dislocations. Scattered mild degenerative changes. Mild soft tissue edema/contusion. No radiographic foreign body. Reading Location: [facility] Wrist X-Ray 07/03/25 07:11 IMPRESSION: No acute fracture or dislocations. Scattered mild degenerative changes. No acute soft tissue abnormalities. No radiographic foreign body. Reading Location: [facility] Discharge Plan Triage Chief Complaint: [...] symptoms or any other concerns Print Language: Citizen Of [place] Disposition Disposition: Home, Self Care What to do if you have Problems For any increased pain, shortness of breath, bleeding, nausea or vomiting, chestpain, or any unexpected problems, contact your Primary Care Provider. Call [facility] ([phone]) or report to the closest Emergency Room. Call 911 if necessary. 07/03/25801 <Electronically signed by Mj Ngo DO> Cosigner Signature (if applicable): CC: Dr. Billy Braga DO ~ Signed [facility] Work Phone: Discharge summary Author Randy Blackburnrus [facility] Note Date/Time July 04, 2025 4:12am [facility] Medical Records Department [address] [place] [address] Emergency Department Summary 07/04/25 MR#: [id number] Acct: [id number] Name: KANDI GOMEZ Rep #:[id number] : 1945 80 From: Randy Marroquin PCP: Dr. Billy Braga DO Status:REG ER Location: ED HPI History of Present Illness Chief Complaint: Fall [facility] Medical History Tonsil and adenoid disease, chronic Hernia Coronary atherosclerosis due to severely calcified coronary lesion Home Medications ?Medication ?Instructions ?Recorded ?Last Taken ?Type metformin 500 mg tablet 500 mg PO BIDCM DIABETES 02/21/18 History 500 MG metoprolol tartrate 25 mg tablet 25 mg PO BID BLOOD WA ESSURE 02/21/18 02/21/18 History 25 MG cholecalciferol [...] Medicine (Dr. Tillman), orthopedic surgery (Dr. Rivera) [facility] Narrative: The patient was initially hemodynamically stable, [...] History of chronic anticoagulation Dispo: Admit to [facility] This note was generated with YooLotto dictation software. It may contain incorrectwords, spelling, [...] 79.6 H Lymph % (Auto) 6.9 L [place] % (Auto) 9.9 Eos % (Auto) 2.2 [...] mild brain involutional changes. stable [facility] C[facility]ical Sp[facility] CT 07/04/25 01:53 IMPRESSION: No newly developed vertebral fractures, structural collapse or dislocation. Stable study findings as detailed. Reading Location: [place] [address] Discharge Plan Triage Chief Complaint: Fall ED [...] DO [Primary Care Provider] - Print Language: Citizen Of [place] What to do if you have Problems For any increased pain, shortness of breath, bleeding, nausea or vomiting, chestpain, or any unexpected problems, contact your Primary Care Provider. Call [facility] ([phone]) or report to the closest Emergency Room. Call 911 if necessary. 07/04/252 <Electronically signed by Randy Gibson DO> Cosigner Signature (if applicable): CC: Dr. Billy Braga DO ~ Signed [facility] Work Phone: Evaluation noteNo assessment information available [facility] Work Phone: Evaluation note* Diagnosis Onset Date Resolution Status Admit Date Left humeral fracture acute Sep ber 2024 4:14am [facility] Work Phone: History and physical note Author Amarilis Tillman [facility] Note Date/Time July 04, 2025 4:33am [facility] Medical Records Department [address] [place] [address] H&P Exam - Hospitalist 07/04/25 0413 MR#: [id number] Acct: [id number] Name: KANDI GOMEZ Rep #:[id number] : 1945 80 From: Amarilis Tillman MD [...] discharged to home now re-presenting to the [facility] ED on 07/04/2025 with another mechanical fall [...] no acute surgical plans per ED report. [facility] Medical History (Updated 07/04/25 @ 04:28 [...] mg tablet 25 mg PO BID BLOOD WA ESSURE 02/21/18 02/21/18 History 25 MG cholecalciferol [...] 79.6 H, Lymph % (Auto) 6.9 L, [place] % (Auto) 9.9, Eos % (Auto) 2.2, [...] mild brain involutional changes. stable Reading Location: [place] [address] 07/04/25 01:53 IMPRESSION: No newly developed vertebral fractures, structural collapse or dislocation. Stable study findings as detailed. Reading [facility] Humerus X-Ray 07/04/25 02:30 IMPRESSION: Acute comminuted displaced fractures of the humeral surgical neck. Overlying soft tissue edema and swelling. Reading Location[facility] Shoulder X-Ray 07/04/25 02:30 IMPRESSION: Acute comminuted displaced fractures of the humeral surgical neck. Overlying soft tissue edema and swelling. Reading Location: [place] [address] Assessment & Plan Assessment/Plan (1) Left humeral [...] discharged to home now re-presenting to the [facility] ED on 07/04/2025 with another mechanical fall [...] [place] echocardiogram noted in [employer] system. #5. CAD: Status post CABG x [...] Code status.. Charges/Coding Visit Charges Inpatient E&M: 24465 Init Hosp L3 07/04/25 0433 <Electronically signed by Amarilis Tillman MD> Cosigner Signature (if applicable): CC: Dr. Amarilis Tillman MD; Dr. Billy Braga, DO~ Signed [facility] Work Phone: Hospital Discharge instructionsAdditional Instructions Your [...] Return with worsening symptoms or any other [facility]WA[facility] Work Phone: Reason for referral (narrative)No reason for referral information availableWAvita [facility] Work Phone: Chief Complaint and Reason [...] FTT S eptember 2024 9:10am Family History No Family History Records Found Relationship Condition Age at Onset Recorded Date/T nathaly mother Malignant neoplasm Unknown father Heart failure Unknown Advance Directives No Advanced Directives Records Found Advance Directive Response Recorded Date/ Time Living Will No December 26, 2 023 3:35pm Power of Junior Linux Systems Administrator No December 26, 2022 3:35pm Advance Directive Response Recorded Date/ Time Do you have a Healthcare Power of Junior Linux Systems Administrator? Yes July 03, 2025 6:50am Advance Directive Response Recorded Date/ Time Do you have a Healthcare Power of Junior Linux Systems Administrator? Yes July 03, 2025 6:50am Do you have a Healthcare Power of Junior Linux Systems Administrator? Yes July 04, 2025 1:19am Advance Directive Response Recorded Date/ Time Do you have a Healthcare Power of Junior Linux Systems Administrator? Yes July 03, 2025 6:50am Do you have a Healthcare Power of [employer]? Yes July 04, 2025 5:40am Summary Purpose [...] Active Start: July 05, 2025 Dr. Tigre Figureoa MD Attending Provider Active Start: July 05, 2025 Dr. Tigre Figueroa MD Other Provider Active Star t: July 05, 2025 Team Status: Active Member Role/Relationship Status Dates Dr. Billy Braga , Primary Care Provider Active Start: July 06, 2025 Dr. Randy Gibson , Emergency Provider Active Start: July 06, 2025 [...] ized section and content) DATE CREATED AUTHOR 07/17/2025 [facility] FOR RECORDS PERTAINING TO PATIENTS WHO [...] BE BASED ON THE PRIMARY CLINICAL RECORDS. [facility] [employer] [facility]. provides no warranty or guarantee of the accuracy or completeness of information in this document.
== END | disposition home or self-care (01) ==
PROVIDERS: Referring Provider Internal Medicine; Visit Provider Internal Medicine
DX: G47.30 Sleep apnea, unspecified (principal)
CPT/HCPCS: 95810

== ENCOUNTER → 2025-07-24 | Outpatient (CLI) | payer MEDICARE, SELFPAY ==
--- NOTE | 2025-07-24 16:50 | CT_ITS ---
PROCEDURE: CT EXTREMITY UPPER WITHOUT CONTRAST - LEFT 07/24/2025 REASON FOR EXAM: EVAL FRACTURE MORPHOLOGY, L SHOULDER CT TECHNIQUE: Procedure Code: CTEUWO Modality: CT Procedure: EXTREMITY UPPER WITHOUT CONTRA CT left shoulder without contrast. Coronal and Sagittal reconstruction series were provided. One or more dose reduction techniques were used (e.g., Automated exposure control, adjustment of the mA and/or kV according to patient size, use of iterative reconstruction technique. RADIATION DOSE SUMMARY: CTDlvol: 29.03 mGy DLP: 777.99 mGycm COMPARISON: Radiographs 07/04/2025. FINDINGS: Comminuted fracture of the left humeral neck, with mild half shaft width anteromedial displacement of the dominant distal fragment. Intact left glenohumeral and AC joints. No acute fracture of the osseous glenoid. Tiny chip fracture fragment adjacent to the humeral head greater tuberosity. Mild infiltrative hematoma/contusional changes about the left shoulder. Visualized soft tissues are otherwise unremarkable. The imaged left lung field is clear. CT/Extremity Upper without Contra IMPRESSION: Comminuted left humeral neck fracture, with mild half shaft width anteromedial displacement. Reading Location: [id number]
--- OUTSIDE RECORDS SUMMARY | 2025-07-24 16:56 | XMS RPT_ITS | CCD ---
Author Organization [facility] Care Team Providers Care Assistant Unit Forester Name Role Phone Dr. Billy Braga DO Primary Care Provider Dr. Mj Ngo DO Emergency Provider Dr. Randy Gibson DO Emergency Provider Layne RUSSO, Dr. Amarilis Soto Attending Provider Dr. Amarilis Tillman MD Admit Provider Layne RUSSO, Dr. Amarilis Soto Other Provider Umer Rivera MD Other Provider Dr. Jerrell Esquivel DO Attending Provider Dr. Tigre Figueroa MD Other Provider Unavailable Umer Rivera MD Attending Provider Dr. Tigre Figueroa MD Attending Provider Unavaila ble Dr. Jerrell Esquivel DO Other Provider Kandi Huo Consulting Unavailable SemenLois solis Attending Unavaila ble HILL, RACTRINIDAD Primary Care Unavailable Sementi, Lois Watts Admitting Unavaila ble Maria Luz, Billy Primary Care Unavailable Mj Ngo Attending Unavailable SemenLois solis Attending Unavaila ble HILL, RACHE Primary Care Unavailable SemenLois solis Referring Unavaila Umer Stephenson Attending Unavailable Maria Luz, Billy Referring Unavailable Maria Luz, Billy Primary Care Unavailable Maria Luz, Billy Primary Care Unavailable Amarilis Tillman Attending Unavailable Umer Rivera Consulting Unavailable Umer Rivera Attending Unavailable Amarilis Tillman Admitting Unavailable Maria Luz, Billy Primary Care Unavailable Amarilis Tillman Consulting Unavailable Tigre Figueroa Consulting Unavailable Tigre Figueroa Attending Unavailable SisKandi poe Consulting Unavailable Maria Luz, Billy Primary Care Unavailable Sementi, Lois Watts Attending Unavaila ble Sementi, Lois Watts Admitting Unavailyenny Oconnor Cheri Consulting Unavaila carol MockArmen Attending Unavailable Jerrell Esquivel Attending Unavailable Billy Braga Primary Care Unavailable Amarilis Tillman Admitting Unavailable Umer Rivera Consulting Unavailable Amarilis Tillman Consulting Unavailable Tigre Figueroa Consulting Unavailable Lois Oconnor Referring UnavailUmer Steve Attending Unavailable Billy Braga Primary Care Unavailable Billy Braga Referring Unavailable Alejandra Hernandez Attending Unavailable Jerrell Esquivel Attending Unavailable Jerrell Esquivel Consulting Unavailable Allergies Allergy Classification Reported Allergen(s) Allergy Type Date of Onset Reaction(s) Facility (4 sources) Penicillins Allergy to substance 12-26-2022 Other [facility] (1 source) Penicillins Drug allergy (disorder) 07-03-2025 [facility] Repository Medications Current Medications Medication Drug [...] SUPPLEMENT docusate sodium 50 mg / sennosides, mcc 8.6 mg oral tablet (1 source) Start: [...] knee] 03-01-2022 Chronic Other aftercare (1 source) 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; Translations: [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] Onset: 07-17-2025 Episodic [...] head, subsequent encounter] Onset: 07-17-2025 Episodic Other injuries and conditions due to external causes (1 source) Encounter for examination and observation following other accident; Translations: [Encounter for examination and observation following other accident] Onset: 07-22-2025 Episodic Other lower respiratory disease (4 sources) [...] apnea, unspecified; Translations: [Sleep apnea, unspecified] Onset: 07-22-2025 Chronic Residual codes; unclassified (1 source) Sleep [...] )on 07-17-2025 BUN/CRE 31.5 RATIO High 10-20 [facility] Comment on above: Performed By: #### L 100.0600, L500.2500 ####[facility] [address] [place], [address] Calcium [Mass/Vol] 9.7 mg/dL Normal 7.6-11.0 [facility] Comment on above: Performed By: #### L 100.0600, L500.2500 ####[facility] [address] [place], [address] Chloride [Moles/Vol] 102 mmol/L Normal 98-108 [facility] Comment on above: Performed By: #### L 100.0600, L500.2500 ####[facility] [address] [place], [address] CO2 [Moles/Vol] 22.3 mmol/L Normal 21.0-32.0 [facility] Comment on above: Performed By: #### L 100.0600, L500.2500 ####[facility] [address] [place], [address] Creatinine [Mass/Vol] 1.15 mg/dL Normal 0.70-1.20 [facility] Comment on above: Performed By: #### L 100.0600, L500.2500 ####[facility] [address] [place], [address] ECRCL 68.30 ml/min Normal 50-250 [facility] Comment on above: Performed By: #### L 100.0600, L500.2500 ####[facility] [address] [place], [address] GAP 14 Normal 5-15 [facility] Comment on above: Performed By: #### L 100.0600, L500.2500 ####[facility] [address] [place], [address] GFR/1.73 sq M.predicted among non-blacks MDRD (S/P/Bld) [Vol rate/Area] 65 mL/min/{1.73_m2} Normal >60 [facility] Comment on above: Result Comment: mL/m in/1.73m2 CKD-EPI Creatinine Equation (2020) Performed By: #### L 100.0600, L500.2500 ####[facility] [address] [place], [address] Glucose [Mass/Vol] 123 mg/dL High 70-99 [facility] Comment on above: Performed By: #### L 100.0600, L500.2500 ####[facility] [address] [place], [address] Potassium [Moles/Vol] 4.7 mmol/L Normal 3.3-5.1 [facility] Comment on above: Result Comment: Hemo lysis present, Results??could be affected. ?? Performed By: #### L 100.0600, L500.2500 ####[facility] [address] [place], [address] Sodium [Moles/Vol] 138 mmol/L Normal 133-145 [facility] Comment on above: Performed By: #### L 100.0600, L500.2500 ####[facility] [address] [place], [address] Urea nitrogen [Mass/Vol] 36 mg/dL High 4-19 [facility] Comment on above: Performed By: #### L 100.0600, L500.2500 ####[facility] [address] [place], [address] Discharge Instructionon 06-29 Discharge Instruction [facility] Medical Records Department [address] [place] [address] Instructions for Home/Discharge Instructions 07/17/25 0934 MR#: [id number] Acct: [id number] Name: KANDI GOMEZ Rep #: [id number] : 1945 80 From: Lois Oconnor DO [...] have sleep apnea. I am sure the [place] has someone you can see for this. [...] [facility] see if it is showing evidence of healing. 5. You have a chronic mild anemia (more content not included)... Normal [facility] HH, Hemoglobin AND Hematocri ton 07-17-2025 Hematocrit (Bld) [Volume fraction] 36.1 % Low 40-54 [facility] Comment on above: Performed By: #### L 100.0600, L500.2500 ####[facility] [address] [place], [address] Hemoglobin (Bld) [Mass/Vol] 11.6 g/dL Low 13.0-16.5 [facility] Comment on above: Performed By: #### L 100.0600, L500.2500 ####[facility] [address] [place], [address] Ferritinon 07-16-2025 Ferritin [Mass/Vol] 143 ng/mL Normal 37-417 [facility] Comment on above: Performed By: #### L 503.6550, L503.6030 ####[facility] [address] [place], [address] Iron+Iron Binding Capacityon 07-16-2025 Iron [Mass/Vol] 61 ug/dL Low 65-175 [facility] Comment on above: Performed By: #### L 503.6550, L503.6030 ####[facility] [address] [place], [address] IRON SATURATION 21.7 Normal 9-55 [facility] Comment on above: Performed By: #### L 503.6550, L503.6030 ####[facility] [address] [place], [address] TIBC 282 ug/dL Normal 250-450 [facility] Comment on above: Performed By: #### L 503.6550, L503.6030 ####[facility] [address] [place], [address] UIBC 221 ug/dL Low 228-428 [facility] Comment on above: Performed By: #### L 503.6550, L503.6030 ####[facility] [address] [place], [address] Basic Metabolic Profile (BMP )on 07-14-2025 BUN/CRE 36.2 RATIO High 10-20 [facility] Comment on above: Performed By: #### L 501.080 #### [facility] [address] [place], [address] Calcium [Mass/Vol] 9.8 mg/dL Normal 7.6-11.0 [facility] Comment on above: Performed By: #### L 501.080 #### [facility] [address] [place], [address] Chloride [Moles/Vol] 102 mmol/L Normal 98-108 [facility] Comment on above: Performed By: #### L 501.080 #### [facility] [address] [place], [address] CO2 [Moles/Vol] 26.5 mmol/L Normal 21.0-32.0 [facility] Comment on above: Performed By: #### L 501.080 #### [facility] [address] [place], [address] Creatinine [Mass/Vol] 1.25 mg/dL High 0.70-1.20 [facility] Comment on above: Performed By: #### L 501.080 #### [facility] [address] [place], [address] ECRCL 63.45 ml/min Normal 50-250 [facility] Comment on above: Performed By: #### L 501.080 #### [facility] [address] [place], [address] GAP 11 Normal 5-15 [facility] Comment on above: Performed By: #### L 501.080 #### [facility] [address] [place], [address] GFR/1.73 sq M.predicted among non-blacks MDRD (S/P/Bld) [Vol rate/Area] 59 mL/min/{1.73_m2} Low >60 [facility] Comment on above: Result Comment: mL/m in/1.73m2 CKD-EPI Creatinine Equation (2020) Performed By: #### L 501.080 #### [facility] [address] [place], [address] Glucose [Mass/Vol] 128 mg/dL High 70-99 [facility] Comment on above: Performed By: #### L 501.080 #### [facility] [address] [place], [address] Potassium [Moles/Vol] 4.7 mmol/L Normal 3.3-5.1 [facility] Comment on above: Performed By: #### L 501.080 #### [facility] [address] [place], [address] Sodium [Moles/Vol] 140 mmol/L Normal 133-145 [facility] Comment on above: Performed By: #### L 501.080 #### [facility] [address] [place], [address] Urea nitrogen [Mass/Vol] 45 mg/dL High 4-19 [facility] Comment on above: Performed By: #### L 501.080 #### [facility] [address] [place], [address] Basic Metabolic Profile (BMP )on 07-13-2025 BUN/CRE 40.1 RATIO High 10-20 [facility] Comment on above: Performed By: #### L 501.080 #### [facility] [address] [place], [address] Calcium [Mass/Vol] 9.5 mg/dL Normal 7.6-11.0 [facility] Comment on above: Performed By: #### L 501.080 #### [facility] [address] [place], [address] Chloride [Moles/Vol] 102 mmol/L Normal 98-108 [facility] Comment on above: Performed By: #### L 501.080 #### [facility] [address] [place], [address] CO2 [Moles/Vol] 28.5 mmol/L Normal 21.0-32.0 [facility] Comment on above: Performed By: #### L 501.080 #### [facility] [address] [place], [address] Creatinine [Mass/Vol] 1.40 mg/dL High 0.70-1.20 [facility] Comment on above: Performed By: #### L 501.080 #### [facility] [address] [place], [address] ECRCL 56.18 ml/min Normal 50-250 [facility] Comment on above: Performed By: #### L 501.080 #### [facility] [address] [place], [address] GAP 9 Normal 5-15 [facility] Comment on above: Performed By: #### L 501.080 #### [facility] [address] [place], [address] GFR/1.73 sq M.predicted among non-blacks MDRD (S/P/Bld) [Vol rate/Area] 51 mL/min/{1.73_m2} Low >60 [facility] Comment on above: Result Comment: mL/m in/1.73m2 CKD-EPI Creatinine Equation (2020) Performed By: #### L 501.080 #### [facility] [address] [place], [address] Glucose [Mass/Vol] 128 mg/dL High 70-99 [facility] Comment on above: Performed By: #### L 501.080 #### [facility] [address] [place], [address] Potassium [Moles/Vol] 5.2 mmol/L High 3.3-5.1 [facility] Comment on above: Performed By: #### L 501.080 #### [facility] [address] [place], [address] Sodium [Moles/Vol] 140 mmol/L Normal 133-145 [facility] Comment on above: Performed By: #### L 501.080 #### [facility] [address] [place], [address] Urea nitrogen [Mass/Vol] 56 mg/dL High 4-19 [facility] Comment on above: Performed By: #### L 501.080 #### [facility] [address] [place], [address] CBC-Complete Blood Cnt No Di ffon 07-13-2025 Erythrocyte distribution width (RBC) [Ratio] 13.8 % Normal 11.6-14.6 [facility] Comment on above: Performed By: #### L 501.080 #### [facility] [address] [place], [address] Hematocrit (Bld) [Volume fraction] 34.6 % Low 40-54 [facility] Comment on above: Performed By: #### L 501.080 #### [facility] [address] [place], [address] Hemoglobin (Bld) [Mass/Vol] 10.7 g/dL Low 13.0-16.5 [facility] Comment on above: Performed By: #### L 501.080 #### [facility] [address] [place], [address] MCH (RBC) [Entitic mass] 31.1 pg Normal 27.0-32.0 [facility] Comment on above: Performed By: #### L 501.080 #### [facility] [address] [place], [address] MCHC (RBC) [Mass/Vol] 30.9 g/dL Low 32-36 [facility] Comment on above: Performed By: #### L 501.080 #### [facility] [address] [place], [address] MCV (RBC) [Entitic vol] 100.6 fL High 80-94 [facility] Comment on above: Performed By: #### L 501.080 #### [facility] [address] [place], [address] Platelet mean volume (Bld) [Entitic vol] 8.9 fL Normal 6.2-12.0 [facility] Comment on above: Performed By: #### L 501.080 #### [facility] [address] [place], [address] Platelets (Bld) [#/Vol] 314 10*3/uL Normal 150-450 [facility] Comment on above: Performed By: #### L 501.080 #### [facility] [address] [place], [address] RBC (Bld) [#/Vol] 3.44 10*6/uL Low 4.6-6.2 [facility] Comment on above: Performed By: #### L 501.080 #### [facility] [address] [place], [address] RDW SD 51.1 fl High 35.1-43.9 [facility] Comment on above: Performed By: #### L 501.080 #### [facility] [address] [place], [address] WBC (Bld) [#/Vol] 9.5 10*3/uL Normal 4.4-11.0 [facility] Comment on above: Performed By: #### L 501.080 #### [facility] [address] [place], [place], [address] Magnesiumon 07-13-2025 Magnesium [Mass/Vol] 2.2 mg/dL Normal 1.5-2.2 [facility] Comment on above: Performed By: #### L 501.080 #### [facility] [address] [place], [place], [address] Pro- Brain NATRIURETIC PEPTI Peg 07-13-2025 Natriuretic peptide B (Bld) [Mass/Vol] 519 pg/mL Normal <=1800 [facility] Comment on above: Order Comment: MG3 1 BMG3 4 D Result Comment: Hear t Failure Unlikely: < 300 pg/mL Heart Failure Likely < 50 Years: > 450 pg/mL 50-75 Years: > 900 pg/mL >75 Years: > 1800 pg/mL Performed By: #### L 503.7505 ####[facility] [address] [place], [address] Stool Occult Blood iFOBon STOB Positive Normal [facility] Comment on above: Performed By: #### L 501.080 #### [facility] [address] [facility] [place], [place], [address] Wound Cultureon 07-11-2025 Wound Culture #2 Possible skin contamination, further [...] S Vancomycin Islt AMARJIT 1 S Normal [facility] Comment on above: Performed By: #### L 501.080 #### [facility] [address] [place], [address] Bedside Glucoseon 07-09-2025 FINGERSTICK GLU 135 mg/dL High 74-106 [facility] Comment on above: Result Comment: ROBEL GEMENT OF PATIENT CARE PER NURSING PROTOCOL Performed By: #### L 501.080 ####[facility] [address] [place], [address] Gram Stainon 07-09-2025 GS Gram Stain 1+ Gram negative rods Rare White Blood Cells Rare Gram positive cocci Normal [facility] Comment on above: Performed By: #### L 501.080 #### [facility] [address] [place], [address] Bedside Glucoseon 07-08-2025 FINGERSTICK GLU 140 mg/dL High 74-106 [facility] Comment on above: Result Comment: ROBEL GEMENT OF PATIENT CARE PER NURSING PROTOCOL Performed By: #### L 501.9520, L3100.1850, L501.4700, L501.9985, L506.1001, L504.2610, L100.9950 #### [facility] [address] [place], [address] FINGERSTICK GLU 131 mg/dL High 74-106 [facility] Comment on above: Result Comment: ROBEL GEMENT OF PATIENT CARE PER NURSING PROTOCOL Performed By: #### L 501.080 #### [facility] [address] [place], [address] FINGERSTICK GLU 127 mg/dL High 74-106 [facility] Comment on above: Result Comment: ROBEL GEMENT OF PATIENT CARE PER NURSING PROTOCOL Performed By: #### L 501.080 ####[facility] [address] [place], [address] FINGERSTICK GLU 139 mg/dL High 74-106 [facility] Comment on above: Result Comment: ROBEL GEMENT OF PATIENT CARE PER NURSING PROTOCOL Performed By: #### L 501.080 #### [facility] [address] [place], [address] Haptoglobinon 07-08-2025 HAPTOGLOBIN 241 mg/dL Normal 34-355 [facility] Comment on above: Result Comment: Perf ormed at: [facility] [address] [id number] Radiation Protection Engineer: Christopher Higgins PhD, Phone: [phone] Performed By: #### L 501.9520, L3100.1850, L501.4700, L501.9985, L506.1001, L504.2610, L100.9250 ####[facility] [address] [place], [address] Bedside Glucoseon 07-07-2025 FINGERSTICK GLU 140 mg/dL High 74-106 [facility] Comment on above: Result Comment: ROBEL GEMENT OF PATIENT CARE PER NURSING PROTOCOL Performed By: #### L 501.080 #### [facility] [address] [place], [address] FINGERSTICK GLU 141 mg/dL High 74-106 [facility] Comment on above: Result Comment: ROBEL GEMENT OF PATIENT CARE PER NURSING PROTOCOL Performed By: #### L 501.080 #### [facility] [address] [place], [address] FINGERSTICK GLU 137 mg/dL High 74-106 [facility] Comment on above: Result Comment: ROBEL GEMENT OF PATIENT CARE PER NURSING PROTOCOL Performed By: #### L 501.080 #### [facility] [address] [place], [address] FINGERSTICK GLU 135 mg/dL High 74-106 [facility] Comment on above: Result Comment: ROBEL GEMENT OF PATIENT CARE PER NURSING PROTOCOL Performed By: #### L 501.080 #### [facility] [address] [place], [address] Bilirubin, Directon 07-07-20 25 Bilirubin.direct [Mass/Vol] 0.95 mg/dL High 0.00-0.30 [facility] Comment on above: Performed By: #### L 501.9520, L3100.1850, L501.4700, L501.9985, L506.1001, L504.2610, L100.9950 #### [facility] [address] [place], [address] CBC W/Diff, Automatedon -2024 Absolute Lymph 0.80 X10 3/uL Low 0.83-4.51 [facility] Comment on above: Performed By: #### L 501.080 #### [facility] [address] [place], [address] Absolute Neut 6.8 X10 3/uL Normal 2.0-7.7 [facility] Comment on above: Performed By: #### L 501.080 #### [facility] [address] [place], [address] Basophils/100 WBC (Bld) 0.6 % Normal 0-1 [facility] Comment on above: Performed By: #### L 501.080 #### [facility] [address] [place], [address] Eosinophils/100 WBC (Bld) 3.0 % Normal 0-5 [facility] Comment on above: Performed By: #### L 501.080 #### [facility] [address] [place], [address] Erythrocyte distribution width (RBC) [Ratio] 13.9 % Normal 11.6-14.6 [facility] Comment on above: Performed By: #### L 501.080 #### [facility] [address] [place], [address] Hematocrit (Bld) [Volume fraction] 35.7 % Low 40-54 [facility] Comment on above: Performed By: #### L 501.080 #### [facility] [address] [place], [address] Hemoglobin (Bld) [Mass/Vol] 11.5 g/dL Low 13.0-16.5 [facility] Comment on above: Performed By: #### L 501.080 #### [facility] [address] [place], [address] IG% 0.700 Normal 0.0-0.9 [facility] Comment on above: Result Comment: IG% - Immature Granulocytes (promyelocytes, myelocytes and metamyelocytes) > 1% indicates that a LEFT SHIFT is Present. Performed By: #### L 501.080 #### [facility] [address] [place], [address] Lymphocytes/100 WBC (Bld) 8.8 % Low 19-41 [facility] Comment on above: Performed By: #### L 501.080 #### [facility] [address] [place], [address] MCH (RBC) [Entitic mass] 31.5 pg Normal 27.0-32.0 [facility] Comment on above: Performed By: #### L 501.080 #### [facility] [address] [place], [address] MCHC (RBC) [Mass/Vol] 32.2 g/dL Normal 32-36 [facility] Comment on above: Performed By: #### L 501.080 #### [facility] [address] [place], [address] MCV (RBC) [Entitic vol] 97.8 fL High 80-94 [facility] Comment on above: Performed By: #### L 501.080 #### [facility] [address] [place], [address] Monocytes/100 WBC (Bld) 11.8 % High 0-10 [facility] Comment on above: Performed By: #### L 501.080 #### [facility] [address] [place], [address] Neutrophils/100 WBC (Bld) 75.1 % High 47-70 [facility] Comment on above: Performed By: #### L 501.080 #### [facility] [address] [place], [address] Nucleated RBC (Bld) [#/Vol] 0 10*3/uL Normal 0-5 [facility] Comment on above: Performed By: #### L 501.080 #### [facility] [address] [place], [address] Platelet mean volume (Bld) [Entitic vol] 9.4 fL Normal 6.2-12.0 [facility] Comment on above: Performed By: #### L 501.080 #### [facility] [address] [place], [address] Platelets (Bld) [#/Vol] 312 10*3/uL Normal 150-450 [facility] Comment on above: Performed By: #### L 501.080 #### [facility] [address] [place], [address] RBC (Bld) [#/Vol] 3.65 10*6/uL Low 4.6-6.2 [facility] Comment on above: Performed By: #### L 501.080 #### [facility] [address] [place], [address] RDW SD 50.4 fl High 35.1-43.9 [facility] Comment on above: Performed By: #### L 501.080 #### [facility] [address] [place], [address] WBC (Bld) [#/Vol] 9.1 10*3/uL Normal 4.4-11.0 [facility] Comment on above: Performed By: #### L 501.080 #### [facility] [address] [place], [address] Comprehensive Metabolic Prof ilon 07-07-2025 Albumin [Mass/Vol] 3.2 g/dL Low 3.4-4.8 [facility] Comment on above: Performed By: #### L 501.080 #### [facility] [address] [place], [address] Albumin/Globulin [Mass ratio] 1.1 {ratio} Normal 0.9-2.4 [facility] Comment on above: Performed By: #### L 501.080 #### [facility] [address] [place], [address] ALK PHOS 112 U/L Normal 40-129 [facility] Comment on above: Performed By: #### L 501.080 #### [facility] [address] [place], [address] ALT [Catalytic activity/Vol] 12 U/L Normal <=46 [facility] Comment on above: Performed By: #### L 501.080 #### [facility] [address] [place], [address] AST [Catalytic activity/Vol] 15 U/L Normal <=37 [facility] Comment on above: Performed By: #### L 501.080 #### [facility] [address] [place], [address] Bilirubin [Mass/Vol] 1.87 mg/dL High 0.00-1.30 [facility] Comment on above: Performed By: #### L 501.080 #### [facility] [address] [place], [address] BUN/CRE 23.3 RATIO High 10-20 [facility] Comment on above: Performed By: #### L 501.080 #### [facility] [address] [place], [address] Calcium [Mass/Vol] 9.1 mg/dL Normal 7.6-11.0 [facility] Comment on above: Performed By: #### L 501.080 #### [facility] [address] [place], [address] Chloride [Moles/Vol] 106 mmol/L Normal 98-108 [facility] Comment on above: Performed By: #### L 501.080 #### [facility] [address] [place], [address] CO2 [Moles/Vol] 25.1 mmol/L Normal 21.0-32.0 [facility] Comment on above: Performed By: #### L 501.080 #### [facility] [address] [place], [address] Creatinine [Mass/Vol] 1.29 mg/dL High 0.70-1.20 [facility] Comment on above: Performed By: #### L 501.080 #### [facility] [address] [place], [address] ECRCL 61.37 ml/min Normal 50-250 [facility] Comment on above: Performed By: #### L 501.080 #### [facility] [address] [place], [address] GAP 11 Normal 5-15 [facility] Comment on above: Performed By: #### L 501.080 #### [facility] [address] [place], [address] GFR/1.73 sq M.predicted among non-blacks MDRD (S/P/Bld) [Vol rate/Area] 57 mL/min/{1.73_m2} Low >60 [facility] Comment on above: Result Comment: mL/m in/1.73m2 CKD-EPI Creatinine Equation (2020) Performed By: #### L 501.080 #### [facility] [address] [place], [address] Globulin (S) [Mass/Vol] 2.9 g/dL Normal 2.2-4.2 [facility] Comment on above: Performed By: #### L 501.080 #### [facility] [address] [place], [address] Glucose [Mass/Vol] 136 mg/dL High 70-99 [facility] Comment on above: Performed By: #### L 501.080 #### [facility] [address] [place], [address] Potassium [Moles/Vol] 4.3 mmol/L Normal 3.3-5.1 [facility] Comment on above: Performed By: #### L 501.080 #### [facility] [address] [place], [address] Sodium [Moles/Vol] 142 mmol/L Normal 133-145 [facility] Comment on above: Performed By: #### L 501.080 #### [facility] [address] [place], [address] T PROT 6.1 g/dL Normal 5.9-8.4 [facility] Comment on above: Performed By: #### L 501.080 #### [facility] [address] [place], [address] Urea nitrogen [Mass/Vol] 30 mg/dL High 4-19 [facility] Comment on above: Performed By: #### L 501.080 #### [facility] [address] [place], [address] Consultation - Surgicalon Consultation - Surgical [facility] Medical Records Department [address] [place] [address] Consultation - Surgical 07/07/25 0951 MR#: [id number] Acct: [id number] Name: KANDI GOMEZ Rep #: [id number] : 1945 80 From: Armen GILES PCP: Dr. Billy Braga, DO Status:[facility] Plan Assessment/Plan (1) Complicated laceration of [...] denies fevers, chills, numbness, tingling, hand weakness. [facility] Medical History PAF (paroxysmal atrial fibrillation) Obesity [...] as documented Integumentary Integumentary: Reports as per [facility] Neurologic Neurologic: Reports as per [facility] Physical Exam Narrative Constitutional: Alert and oriented [...] 07/07/25 06:1 (more content not included)... Normal [facility] Folates,Serum (Folic Acid)on 07-07-2025 FOLATES,SERUM 16.80 ng/mL Normal 4.60-34.80 [facility] Comment on above: Performed By: #### L 501.080 #### [facility] [address] [place], [place], [address] Hemoglobin A1con 07-07-2025 HbA1c (Bld) [Mass fraction] 6.8 % High <=5.6 [facility] Comment on above: Result Comment: Norm al < 5.7 % Prediabetic 5.7 - 6.4 % Diabetic >or= 6.5 % Please note range changes. Performed By: #### L 501.9520, L3100.1850, L501.4700, L501.9985, L506.1001, L504.2610, L100.9950 #### [facility] [address] [place], [address] LDHon 07-07-2025 LDH 164 U/L Normal 87-241 [facility] Comment on above: Performed By: #### L [id number], L3100.1850, L501.4700, L501.9985, L506.1001, L504.2610, L100.9950 #### [facility] [address] [place], [address] MRSA Wound DNA by PCRon MRSA DNA ASSAY Negative Normal Negative [facility] Comment on above: Order Comment: Alyx parnell Performed By: #### L 501.080 #### [facility] [address] [place], [address] SA DNA ASSAY Positive Abnormal Negative [facility] Comment on above: Order Comment: Alyx parnell Performed By: #### L 501.080 #### [facility] [address] [place], [address] Magnesiumon 07-07-2025 Magnesium [Mass/Vol] 1.9 mg/dL Normal 1.5-2.2 [facility] Comment on above: Performed By: #### L 501.9520, L3100.1850, L501.4700, L501.9985, L506.1001, L504.2610, L100.9950 #### [facility] [address] [place], [address] Phosphoruson 07-07-2025 Phosphate [Mass/Vol] 3.2 mg/dL Normal 2.7-4.5 [facility] Comment on above: Performed By: #### L 501.9520, L3100.1850, L501.4700, L501.9985, L506.1001, L504.2610, L100.9950 #### [facility] [address] [place], [address] Retic Panelon 07-07-2025 IM RET FRACTION 19.70 High 3.00-15.90 [facility] Comment on above: Performed By: #### L 501.9520, L3100.1850, L501.4700, L501.9985, L506.1001, L504.2610, L100.9950 #### [facility] [address] [place], [address] RET-HE 31.7 pg Normal 30-35 [facility] Comment on above: Performed By: #### L 501.9520, L3100.1850, L501.4700, L501.9985, L506.1001, L504.2610, L100.9950 #### [facility] [address] [place], [address] Retic Count 1.83 High 0.5-1.5 [facility] Comment on above: Performed By: #### L 501.9520, L3100.1850, L501.4700, L501.9985, L506.1001, L504.2610, L100.9950 #### [facility] [address] [place], [address] Thyroid Stim Hormone (TSH)on 07-07-2025 TSH 3.320 uIU/mL Normal 0.300-4.200 [facility] Comment on above: Performed By: #### L 501.9520, L3100.1850, L501.4700, L501.9985, L506.1001, L504.2610, L100.9950 #### [facility] [address] [place], [address] Vitamin D,25 Hydroxyon 07-07 Vitamin D 25-OH 44.1 ng/mL Normal 30-100 [facility] Comment on above: Result Comment: Araseli min D Status Deficiency: <20 ng/mL (50nmol/L) Insufficiency: 20-30 ng/mL (50-75 nmol/L) Sufficiency: 30-100 ng/mL (75-250 nmol/L) Toxicity: >100 ng/mL (>250 nmol/L) Performed By: #### L [id number], L3100.1850, L501.4700, L501.9985, L506.1001, L504.2610, L100.9950 #### [facility] [address] [place], [address] Absolute lymphocyte countOrd ered By: Tigre Figueroa on 07-06-2025 Lymphocytes Auto (Unsp spec) [#/Vol] 0.82 10*3/uL Low 0.83-4.51 [facility] Absolute neutrophil countOrd ered By: Tigre Figueroa on 07-06-2025 Neutrophils (Bld) [#/Vol] 8.8 10*3/uL High 2.0-7.7 [facility] Anion gap in Serum or Plasma Ordered By: Tigre Figueroa on 07-06-2025 Anion gap [Moles/Vol] 12 mmol/L 5-15 [facility] Automated lymphocyte count a s percentage of total leukocytesOrdered By: Tigre Figueroa on 07-06-2025 Lymphocytes/100 WBC Auto (Unsp spec) 7.3 % Low 19-41 [facility] BUN/creatinine ratioOrdered By: Tigre Figueroa on 07-06-2025 Urea nitrogen/Creatinine [Mass ratio] 24.3 mg/mg High 10-20 [facility] Basic Metabolic Profile (BMP )on 07-06-2025 BUN/CRE 24.3 RATIO High 10-20 [facility] Comment on above: Performed By: #### L 501.9520, L3100.1850, L501.4700, L501.9985, L506.1001, L504.2610, L100.9950 #### [facility] [address] [place], [place], [address] Calcium [Mass/Vol] 9.7 mg/dL Normal 7.6-11.0 [facility] Comment on above: Performed By: #### L [id number], L3100.1850, L501.4700, L501.9985, L506.1001, L504.2610, L100.9950 #### [facility] [address] [place], [address] Chloride [Moles/Vol] 105 mmol/L Normal 98-108 [facility] Comment on above: Performed By: #### L 501.9520, L3100.1850, L501.4700, L501.9985, L506.1001, L504.2610, L100.9950 #### [facility] [address] [place], [address] CO2 [Moles/Vol] 24.6 mmol/L Normal 21.0-32.0 [facility] Comment on above: Performed By: #### L 501.9520, L3100.1850, L501.4700, L501.9985, L506.1001, L504.2610, L100.9950 #### [facility] [address] [place], [address] Creatinine [Mass/Vol] 1.16 mg/dL Normal 0.70-1.20 [facility] Comment on above: Performed By: #### L 501.9520, L3100.1850, L501.4700, L501.9985, L506.1001, L504.2610, L100.9950 #### [facility] [address] [place], [address] ECRCL 66.65 ml/min Normal 50-250 [facility] Comment on above: Performed By: #### L 501.9520, L3100.1850, L501.4700, L501.9985, L506.1001, L504.2610, L100.9950 #### [facility] [address] [place], [address] GAP 12 Normal 5-15 [facility] Comment on above: Performed By: #### L [id number], L3100.1850, L501.4700, L501.9985, L506.1001, L504.2610, L100.9950 #### [facility] [address] [place], [address] GFR/1.73 sq M.predicted among non-blacks MDRD (S/P/Bld) [Vol rate/Area] 64 mL/min/{1.73_m2} Normal >60 [facility] Comment on above: Result Comment: mL/m in/1.73m2 CKD-EPI Creatinine Equation (2020) Performed By: #### L 501.9520, L3100.1850, L501.4700, L501.9985, L506.1001, L504.2610, L100.9950 #### [facility] [address] [place], [address] Glucose [Mass/Vol] 162 mg/dL High 70-99 [facility] Comment on above: Performed By: #### L [id number], L3100.1850, L501.4700, L501.9985, L506.1001, L504.2610, L100.9950 #### [facility] [address] [place], [address] Potassium [Moles/Vol] 4.5 mmol/L Normal 3.3-5.1 [facility] Comment on above: Performed By: #### L 501.9520, L3100.1850, L501.4700, L501.9985, L506.1001, L504.2610, L100.9950 #### [facility] [address] [place], [address] Sodium [Moles/Vol] 142 mmol/L Normal 133-145 [facility] Comment on above: Performed By: #### L 501.9520, L3100.1850, L501.4700, L501.9985, L506.1001, L504.2610, L100.9950 #### [facility] [address] [place], [address] Urea nitrogen [Mass/Vol] 28 mg/dL High 4-19 [facility] Comment on above: Performed By: #### L 501.9520, L3100.1850, L501.4700, L501.9985, L506.1001, L504.2610, L100.9950 #### [facility] [address] [place], [address] Basophil percentageOrdered B y: Tigre Figueroa on 07-06-2025 Basophils/100 WBC (Bld) 0.4 % 0-1 [facility] Bedside Glucoseon 07-06-2025 FINGERSTICK GLU 154 mg/dL High 74-106 [facility] Comment on above: Result Comment: ROBEL GEMENT OF PATIENT CARE PER NURSING PROTOCOL Performed By: #### L 501.9520, L3100.1850, L501.4700, L501.9985, L506.1001, L504.2610, L100.9950 #### [facility] [address] [place], [address] FINGERSTICK GLU 137 mg/dL High 74-106 [facility] Comment on above: Result Comment: ROBEL GEMENT OF PATIENT CARE PER NURSING PROTOCOL Performed By: #### L 501.080 #### [facility] [address] [place], [address] FINGERSTICK GLU 192 mg/dL High 74-106 [facility] Comment on above: Result Comment: ROBEL GEMENT OF PATIENT CARE PER NURSING PROTOCOL Performed By: #### L 501.080 #### [facility] [address] [place], [address] FINGERSTICK GLU 155 mg/dL High 74-106 [facility] Comment on above: Result Comment: ROBEL GEMENT OF PATIENT CARE PER NURSING PROTOCOL Performed By: #### L 501.9520, L3100.1850, L501.4700, L501.9985, L506.1001, L504.2610, L100.9950 #### [facility] [address] [place], [address] FINGERSTICK GLU 147 mg/dL High 74-106 [facility] Comment on above: Result Comment: ROBEL GEMENT OF PATIENT CARE PER NURSING PROTOCOL Performed By: #### L 501.9520, L3100.1850, L501.4700, L501.9985, L506.1001, L504.2610, L100.9950 #### [facility] [address] [place], [address] CBC W/Diff, Automatedon 09-0 8-2025 Absolute Lymph 0.82 X10 3/uL Low 0.83-4.51 [facility] Comment on above: Performed By: #### L 501.9520, L3100.1850, L501.4700, L501.9985, L506.1001, L504.2610, L100.9950 #### [facility] [address] [place], [address] Absolute Neut 8.8 X10 3/uL High 2.0-7.7 [facility] Comment on above: Performed By: #### L 501.9520, L3100.1850, L501.4700, L501.9985, L506.1001, L504.2610, L100.9950 #### [facility] [address] [place], [address] Basophils/100 WBC (Bld) 0.4 % Normal 0-1 [facility] Comment on above: Performed By: #### L 501.9520, L3100.1850, L501.4700, L501.9985, L506.1001, L504.2610, L100.9950 #### [facility] [address] [place], [address] Eosinophils/100 WBC (Bld) 2.5 % Normal 0-5 [facility] Comment on above: Performed By: #### L 501.9520, L3100.1850, L501.4700, L501.9985, L506.1001, L504.2610, L100.9950 #### [facility] [address] [place], [address] Erythrocyte distribution width (RBC) [Ratio] 13.9 % Normal 11.6-14.6 [facility] Comment on above: Performed By: #### L 501.9520, L3100.1850, L501.4700, L501.9985, L506.1001, L504.2610, L100.9950 #### [facility] [address] [place], [address] Hematocrit (Bld) [Volume fraction] 36.0 % Low 40-54 [facility] Comment on above: Performed By: #### L 501.9520, L3100.1850, L501.4700, L501.9985, L506.1001, L504.2610, L100.9950 #### [facility] [address] [place], [address] Hemoglobin (Bld) [Mass/Vol] 11.7 g/dL Low 13.0-16.5 [facility] Comment on above: Performed By: #### L 501.9520, L3100.1850, L501.4700, L501.9985, L506.1001, L504.2610, L100.9950 #### [facility] [address] [facility] [place], [address] IG% 0.500 Normal 0.0-0.9 [facility] Comment on above: Result Comment: IG% - Immature Granulocytes (promyelocytes, myelocytes and metamyelocytes) > 1% indicates that a LEFT SHIFT is Present. Performed By: #### L 501.9520, L3100.1850, L501.4700, L501.9985, L506.1001, L504.2610, L100.9950 #### [facility] [address] [place], [address] Lymphocytes/100 WBC (Bld) 7.3 % Low 19-41 [facility] Comment on above: Performed By: #### L 501.9520, L3100.1850, L501.4700, L501.9985, L506.1001, L504.2610, L100.9950 #### [facility] [address] [place], [address] MCH (RBC) [Entitic mass] 31.8 pg Normal 27.0-32.0 [facility] Comment on above: Performed By: #### L 501.9520, L3100.1850, L501.4700, L501.9985, L506.1001, L504.2610, L100.9950 #### [facility] [address] [place], [address] MCHC (RBC) [Mass/Vol] 32.5 g/dL Normal 32-36 [facility] Comment on above: Performed By: #### L 501.9520, L3100.1850, L501.4700, L501.9985, L506.1001, L504.2610, L100.9950 #### [facility] [address] [place], [address] MCV (RBC) [Entitic vol] 97.8 fL High 80-94 [facility] Comment on above: Performed By: #### L 501.9520, L3100.1850, L501.4700, L501.9985, L506.1001, L504.2610, L100.9950 #### [facility] [address] [place], [address] Monocytes/100 WBC (Bld) 10.5 % High 0-10 [facility] Comment on above: Performed By: #### L 501.9520, L3100.1850, L501.4700, L501.9985, L506.1001, L504.2610, L100.9950 #### [facility] [address] [place], [address] Neutrophils/100 WBC (Bld) 78.8 % High 47-70 [facility] Comment on above: Performed By: #### L 501.9520, L3100.1850, L501.4700, L501.9985, L506.1001, L504.2610, L100.9950 #### [facility] [address] [place], [address] Nucleated RBC (Bld) [#/Vol] 0 10*3/uL Normal 0-5 [facility] Comment on above: Performed By: #### L 501.9520, L3100.1850, L501.4700, L501.9985, L506.1001, L504.2610, L100.9950 #### [facility] [address] [place], [address] Platelet mean volume (Bld) [Entitic vol] 9.4 fL Normal 6.2-12.0 [facility] Comment on above: Performed By: #### L 501.9520, L3100.1850, L501.4700, L501.9985, L506.1001, L504.2610, L100.9950 #### [facility] [address] [place], [address] Platelets (Bld) [#/Vol] 303 10*3/uL Normal 150-450 [facility] Comment on above: Performed By: #### L 501.9520, L3100.1850, L501.4700, L501.9985, L506.1001, L504.2610, L100.9950 #### [facility] [address] [place], [address] RBC (Bld) [#/Vol] 3.68 10*6/uL Low 4.6-6.2 [facility] Comment on above: Performed By: #### L 501.9520, L3100.1850, L501.4700, L501.9985, L506.1001, L504.2610, L100.9950 #### [facility] [address] [place], [address] RDW SD 50.0 fl High 35.1-43.9 [facility] Comment on above: Performed By: #### L 501.9520, L3100.1850, L501.4700, L501.9985, L506.1001, L504.2610, L100.9950 #### [facility] [address] [place], [address] WBC (Bld) [#/Vol] 11.2 10*3/uL High 4.4-11.0 [facility] Comment on above: Performed By: #### L 501.9520, L3100.1850, L501.4700, L501.9985, L506.1001, L504.2610, L100.9950 #### [facility] [address] [facility] [address] [place], [place], [address] Carbon dioxide, total [Moles /volume] in Central venous bloodOrdered By: Tigre Figueroa on 07-06-2025 CO2 [Moles/Vol] 24.6 mmol/L 21.0-32.0 [facility] Chloride assayOrdered By: Winston Figueroa on 07-06-2025 Chloride [Moles/Vol] 105 mmol/L 98-108 [facility] Eosinophil percentageOrdered By: Tigre Figueroa on 07-06-2025 Eosinophils/100 WBC (Bld) 2.5 % 0-5 [facility] Erythrocyte distribution wid th ratioOrdered By: Tigre Figueroa on 07-06-2025 Erythrocyte distribution width (RBC) [Ratio] 13.9 % 11.6-14.6 [facility] Erythrocyte distribution wid th standard deviationOrdered By: Tigre Figueroa on 07-06-2025 Erythrocyte distribution width (RBC) [Ratio] 50.0 fl High 35.1-43.9 [facility] Glomerular filtration rate ( GFR) estimation/1.73 sq m using serum, plasma, or whole bOrdered By: Tigre Figueroa on 07-06-2025 GFR/1.73 sq M.predicted among non-blacks MDRD (S/P/Bld) [Vol rate/Area] 64 mL/min/{1.73_m2} >60 [facility] Comment on above: mL/min/1.73m2 CKD-EP I Creatinine Equation (2020) [facility] deOrdered By: Jerrell Esquivel on 07-06-2025 Glucose [Mass/Vol] 192 mg/dL High 74-106 [facility] Comment on above: MANAGEMENT OF PATIEN T CARE PER NURSING PROTOCOL Hematocrit Auto (Bld) [Volum e fraction]Ordered By: Tigre Figueroa on 07-06-2025 Hematocrit (Bld) [Volume fraction] 36.0 % Low 40-54 [facility] Hemoglobin measurementOrdere d By: Tigre Figueroa on 07-06-2025 Hemoglobin (Bld) [Mass/Vol] 11.7 g/dL Low 13.0-16.5 [facility] Immature granulocytes/100 WB C Auto (Bld)Ordered By: Tigre Figueroa on 07-06-2025 Immature granulocytes/100 WBC (Bld) 0.500 % 0.0-0.9 [facility] Comment on above: IG% - Immature Granu locytes (promyelocytes, myelocytes and metamyelocytes) > 1% indicates that a LEFT SHIFT is Present. MCV (mean corpuscular volume ) determinationOrdered By: Tigre Figueroa on 07-06-2025 MCV (RBC) [Entitic vol] 97.8 fL High 80-94 [facility] Magnesiumon 07-06-2025 Magnesium [Mass/Vol] 2.1 mg/dL Normal 1.5-2.2 [facility] Comment on above: Performed By: #### L 501.9520, L3100.1850, L501.4700, L501.9985, L506.1001, L504.2610, L100.9950 #### [facility] [address] [place], [place], [address] Magnesium measurement (mass/ volume)Ordered By: Tigre Figueroa on 07-06-2025 Magnesium (Unsp spec) [Mass/Vol] 2.1 mg/dL 1.5-2.2 [facility] Mean corpuscular hemoglobin (MCH) determinationOrdered By: Tigre Figueroa on 07-06-2025 MCH (RBC) [Entitic mass] 31.8 pg 27.0-32.0 [facility] Mean corpuscular hemoglobin concentration (MCHC) determinationOrdered By: Tigre Figueroa on 07-06-2025 MCHC (RBC) [Mass/Vol] 32.5 g/dL 32-36 [facility] Mean platelet volume determi nationOrdered By: Tigre Figueroa on 07-06-2025 Platelet mean volume (Bld) [Entitic vol] 9.4 fL 6.2-12.0 [facility] Monocyte percentageOrdered B y: Tigre Figueroa on 07-06-2025 Monocytes/100 WBC (Bld) 10.5 % High 0-10 [facility] Neutrophil percentageOrdered By: Tigre Figueroa on 07-06-2025 Neutrophils/100 WBC (Bld) 78.8 % High 47-70 [facility] Nucleated red blood cell per centageOrdered By: Tigre Figueroa on 07-06-2025 Nucleated RBC/100 WBC (Bld) [Ratio] 0 % 0-5 [facility] Phosphoruson 07-06-2025 Phosphate [Mass/Vol] 3.1 mg/dL Normal 2.7-4.5 [facility] Comment on above: Performed By: #### L 501.9520, L3100.1850, L501.4700, L501.9985, L506.1001, L504.2610, L100.9950 #### [facility] [address] [place] [address], [address] Platelet countOrdered By: Winston Figueroa on 07-06-2025 Platelets (Bld) [#/Vol] 303 10*3/uL 150-450 [facility] Potassium measurement (mass/ volume)Ordered By: Tigre Figueroa on 07-06-2025 Potassium (Unsp spec) [Mass/Vol] 4.5 mmol/L 3.3-5.1 [facility] RBC Auto (Bld) [#/Vol]Ordere d By: Tigre Figueroa on 07-06-2025 RBC (Bld) [#/Vol] 3.68 10*6/uL Low 4.6-6.2 [facility] Serum creatinine measurement (mass/volume)Ordered By: Tigre Figueroa on 07-06-2025 Creatinine [Mass/Vol] 1.16 mg/dL 0.70-1.20 [facility] Serum glucose measurement (m ass/volume)Ordered By: Tigre Figueroa on 07-06-2025 Glucose [Mass/Vol] 162 mg/dL High 70-99 [facility] Serum or plasma calcium sheldon urement (mass/volume)Ordered By: Tigre Figueroa on 07-06-2025 Calcium [Mass/Vol] 9.7 mg/dL 7.6-11.0 [facility] Serum or plasma urea nitroge n measurement (mass/volume)Ordered By: Tigre Figueroa on 07-06-2025 Urea nitrogen [Mass/Vol] 28 mg/dL High 4-19 [facility] Sodium levelOrdered By: Kit Figueroa on 07-06-2025 Sodium [Moles/Vol] 142 mmol/L 133-145 [facility] White blood cell (WBC) count Ordered By: Tigre Figueroa on 07-06-2025 WBC (Bld) [#/Vol] 11.2 10*3/uL High 4.4-11.0 [facility] Bedside Glucoseon 07-05-2025 FINGERSTICK GLU 155 mg/dL High 74-106 [facility] Comment on above: Result Comment: ROBEL GEMENT OF PATIENT CARE PER NURSING PROTOCOL Performed By: #### L 501.080 #### [facility] [address] [place], [address] FINGERSTICK GLU 174 mg/dL High 74-106 [facility] Comment on above: Result Comment: ROBEL GEMENT OF PATIENT CARE PER NURSING PROTOCOL Performed By: #### L 501.9520, L3100.1850, L501.4700, L501.9985, L506.1001, L504.2610, L100.9950 #### [facility] [address] [place], [address] FINGERSTICK GLU 142 mg/dL High 74-106 [facility] Comment on above: Result Comment: ROBEL BREWER OF PATIENT CARE PER NURSING PROTOCOL Performed By: #### L 501.080 #### [facility] [address] [place], [address] Bilirubin, totalOrdered By: Amarilis Tillman on 07-05-2025 Bilirubin [Mass/Vol] 2.30 mg/dL High 0.00-1.30 [facility] CBC W/Diff, Automatedon Absolute Lymph 0.79 X10 3/uL Low 0.83-4.51 [facility] Comment on above: Performed By: #### L 501.9520, L3100.1850, L501.4700, L501.9985, L506.1001, L504.2610, L100.9950 #### [facility] [address] [place], [address] Absolute Neut 8.8 X10 3/uL High 2.0-7.7 [facility] Comment on above: Performed By: #### L 501.9520, L3100.1850, L501.4700, L501.9985, L506.1001, L504.2610, L100.9950 #### [facility] [address] [place], [address] Basophils/100 WBC (Bld) 0.4 % Normal 0-1 [facility] Comment on above: Performed By: #### L 501.9520, L3100.1850, L501.4700, L501.9985, L506.1001, L504.2610, L100.9950 #### [facility] [address] [place], [address] Eosinophils/100 WBC (Bld) 2.1 % Normal 0-5 [facility] Comment on above: Performed By: #### L 501.9520, L3100.1850, L501.4700, L501.9985, L506.1001, L504.2610, L100.9950 #### [facility] [address] [place], [address] Erythrocyte distribution width (RBC) [Ratio] 13.9 % Normal 11.6-14.6 [facility] Comment on above: Performed By: #### L 501.9520, L3100.1850, L501.4700, L501.9985, L506.1001, L504.2610, L100.9950 #### [facility] [address] [place], [address] Hematocrit (Bld) [Volume fraction] 38.3 % Low 40-54 [facility] Comment on above: Performed By: #### L 501.9520, L3100.1850, L501.4700, L501.9985, L506.1001, L504.2610, L100.9950 #### [facility] [address] [place], [address] Hemoglobin (Bld) [Mass/Vol] 11.9 g/dL Low 13.0-16.5 [facility] Comment on above: Performed By: #### L 501.9520, L3100.1850, L501.4700, L501.9985, L506.1001, L504.2610, L100.9950 #### [facility] [address] [place], [address] IG% 0.500 Normal 0.0-0.9 [facility] Comment on above: Result Comment: IG% - Immature Granulocytes (promyelocytes, myelocytes and metamyelocytes) > 1% indicates that a LEFT SHIFT is Present. Performed By: #### L 501.9520, L3100.1850, L501.4700, L501.9985, L506.1001, L504.2610, L100.9950 #### [facility] [address] [place], [address] Lymphocytes/100 WBC (Bld) 7.2 % Low 19-41 [facility] Comment on above: Performed By: #### L 501.9520, L3100.1850, L501.4700, L501.9985, L506.1001, L504.2610, L100.9950 #### [facility] [address] [place], [address] MCH (RBC) [Entitic mass] 30.7 pg Normal 27.0-32.0 [facility] Comment on above: Performed By: #### L 501.9520, L3100.1850, L501.4700, L501.9985, L506.1001, L504.2610, L100.9950 #### [facility] [address] [place], [address] MCHC (RBC) [Mass/Vol] 31.1 g/dL Low 32-36 [facility] Comment on above: Performed By: #### L 501.9520, L3100.1850, L501.4700, L501.9985, L506.1001, L504.2610, L100.9950 #### [facility] [address] [place], [address] MCV (RBC) [Entitic vol] 99.0 fL High 80-94 [facility] Comment on above: Performed By: #### L 501.9520, L3100.1850, L501.4700, L501.9985, L506.1001, L504.2610, L100.9950 #### [facility] [address] [place], [address] Monocytes/100 WBC (Bld) 10.2 % High 0-10 [facility] Comment on above: Performed By: #### L 501.9520, L3100.1850, L501.4700, L501.9985, L506.1001, L504.2610, L100.9950 #### [facility] [address] [place], [address] Neutrophils/100 WBC (Bld) 79.6 % High 47-70 [facility] Comment on above: Performed By: #### L 501.9520, L3100.1850, L501.4700, L501.9985, L506.1001, L504.2610, L100.9950 #### [facility] [address] [place], [address] Nucleated RBC (Bld) [#/Vol] 0 10*3/uL Normal 0-5 [facility] Comment on above: Performed By: #### L 501.9520, L3100.1850, L501.4700, L501.9985, L506.1001, L504.2610, L100.9950 #### [facility] [address] [place], [address] Platelet mean volume (Bld) [Entitic vol] 9.8 fL Normal 6.2-12.0 [facility] Comment on above: Performed By: #### L 501.9520, L3100.1850, L501.4700, L501.9985, L506.1001, L504.2610, L100.9950 #### [facility] [address] [place], [address] Platelets (Bld) [#/Vol] 325 10*3/uL Normal 150-450 [facility] Comment on above: Performed By: #### L 501.9520, L3100.1850, L501.4700, L501.9985, L506.1001, L504.2610, L100.9950 #### [facility] [address] [place], [address] RBC (Bld) [#/Vol] 3.87 10*6/uL Low 4.6-6.2 [facility] Comment on above: Performed By: #### L 501.9520, L3100.1850, L501.4700, L501.9985, L506.1001, L504.2610, L100.9950 #### [facility] [address] [place], [address] RDW SD 50.5 fl High 35.1-43.9 [facility] Comment on above: Performed By: #### L 501.9520, L3100.1850, L501.4700, L501.9985, L506.1001, L504.2610, L100.9950 #### [facility] [address] [place], [place], [phone] (726) WBC (Bld) [#/Vol] 11.0 10*3/uL Normal 4.4-11.0 [facility] Comment on above: Performed By: #### L 501.9520, L3100.1850, L501.4700, L501.9985, L506.1001, L504.2610, L100.9950 #### [facility] [address] [place], [place], [id number] Comprehensive Metabolic Prof [facility] 07-05-2025 Albumin [Mass/Vol] 3.6 g/dL Normal 3.4-4.8 [facility] Comment on above: Performed By: #### L 501.9520, L3100.1850, L501.4700, L501.9985, L506.1001, L504.2610, L100.9950 #### [facility] [address] [place], [address] Albumin/Globulin [Mass ratio] 1.2 {ratio} Normal 0.9-2.4 [facility] Comment on above: Performed By: #### L 501.9520, L3100.1850, L501.4700, L501.9985, L506.1001, L504.2610, L100.9950 #### [facility] [address] [place], [address] ALK PHOS 125 U/L Normal 40-129 [facility] Comment on above: Performed By: #### L 501.9520, L3100.1850, L501.4700, L501.9985, L506.1001, L504.2610, L100.9950 #### [facility] [address] [place], [address] ALT [Catalytic activity/Vol] 17 U/L Normal <=46 [facility] Comment on above: Performed By: #### L 501.9520, L3100.1850, L501.4700, L501.9985, L506.1001, L504.2610, L100.9950 #### [facility] [address] [place], [place], [phone] (237) AST [Catalytic activity/Vol] 20 U/L Normal <=37 [facility] Comment on above: Performed By: #### L 501.9520, L3100.1850, L501.4700, L501.9985, L506.1001, L504.2610, L100.9950 #### [facility] [address] [place], [address] Bilirubin [Mass/Vol] 2.30 mg/dL High 0.00-1.30 [facility] Comment on above: Performed By: #### L 501.9520, L3100.1850, L501.4700, L501.9985, L506.1001, L504.2610, L100.9950 #### [facility] [address] [place], [address] BUN/CRE 23.4 RATIO High 10-20 [facility] Comment on above: Performed By: #### L 501.9520, L3100.1850, L501.4700, L501.9985, L506.1001, L504.2610, L100.9950 #### [facility] [address] [place], [address] Calcium [Mass/Vol] 9.2 mg/dL Normal 7.6-11.0 [facility] Comment on above: Performed By: #### L 501.9520, L3100.1850, L501.4700, L501.9985, L506.1001, L504.2610, L100.9950 #### [facility] [address] [place], [address] Chloride [Moles/Vol] 106 mmol/L Normal 98-108 [facility] Comment on above: Performed By: #### L 501.9520, L3100.1850, L501.4700, L501.9985, L506.1001, L504.2610, L100.9950 #### [facility] [address] [place], [address] CO2 [Moles/Vol] 23.1 mmol/L Normal 21.0-32.0 [facility] Comment on above: Performed By: #### L 501.9520, L3100.1850, L501.4700, L501.9985, L506.1001, L504.2610, L100.9950 #### [facility] [address] [place], [address] Creatinine [Mass/Vol] 1.13 mg/dL Normal 0.70-1.20 [facility] Comment on above: Performed By: #### L 501.9520, L3100.1850, L501.4700, L501.9985, L506.1001, L504.2610, L100.9950 #### [facility] [address] [place], [address] ECRCL 68.60 ml/min Normal 50-250 [facility] Comment on above: Performed By: #### L 501.9520, L3100.1850, L501.4700, L501.9985, L506.1001, L504.2610, L100.9950 #### [facility] [address] [place], [address] GAP 12 Normal 5-15 [facility] Comment on above: Performed By: #### L 501.9520, L3100.1850, L501.4700, L501.9985, L506.1001, L504.2610, L100.9950 #### [facility] [address] [place], [address] GFR/1.73 sq M.predicted among non-blacks MDRD (S/P/Bld) [Vol rate/Area] 67 mL/min/{1.73_m2} Normal >60 [facility] Comment on above: Result Comment: mL/m in/1.73m2 CKD-EPI Creatinine Equation (2020) Performed By: #### L 501.9520, L3100.1850, L501.4700, L501.9985, L506.1001, L504.2610, L100.9950 #### [facility] [address] [place], [address] Globulin (S) [Mass/Vol] 3.0 g/dL Normal 2.2-4.2 [facility] Comment on above: Performed By: #### L 501.9520, L3100.1850, L501.4700, L501.9985, L506.1001, L504.2610, L100.9950 #### [facility] [address] [place], [address] Glucose [Mass/Vol] 152 mg/dL High 70-99 [facility] Comment on above: Performed By: #### L 501.9520, L3100.1850, L501.4700, L501.9985, L506.1001, L504.2610, L100.9950 #### [facility] [address] [place], [address] Potassium [Moles/Vol] 4.3 mmol/L Normal 3.3-5.1 [facility] Comment on above: Performed By: #### L 501.9520, L3100.1850, L501.4700, L501.9985, L506.1001, L504.2610, L100.9950 #### [facility] [address] [place], [address] Sodium [Moles/Vol] 141 mmol/L Normal 133-145 [facility] Comment on above: Performed By: #### L 501.9520, L3100.1850, L501.4700, L501.9985, L506.1001, L504.2610, L100.9950 #### [facility] [address] [place], [place], [id number] (082) T PROT 6.6 g/dL Normal 5.9-8.4 [facility] Comment on above: Performed By: #### L 501.9520, L3100.1850, L501.4700, L501.9985, L506.1001, L504.2610, L100.9950 #### [facility] [address] [place], [address] Urea nitrogen [Mass/Vol] 26 mg/dL High 4-19 [facility] Comment on above: Performed By: #### L 501.9520, L3100.1850, L501.4700, L501.9985, L506.1001, L504.2610, L100.9950 #### [facility] [address] [place], [address] Laboratory - Chemistry and C hemistry - challengeOrdered By: Amarilis Tillman on 07-05-2025 AST [Catalytic activity/Vol] 20 U/L <38 [facility] Serum globulin measurementOr dered By: Amarilis Tillman on 07-05-2025 Globulin (S) [Mass/Vol] 3.0 g/dL 2.2-4.2 [facility] Serum or plasma alanine cardoza otransferase (ALT) measurementOrdered By: [facility] on 07-05-2025 ALT [Catalytic activity/Vol] 17 U/L <47 [facility] Serum or plasma albumin sheldon urement (mass/volume)Ordered By: [facility] on 07-05-2025 Albumin [Mass/Vol] 3.6 g/dL 3.4-4.8 [facility] Serum or plasma albumin/glob ulin mass ratioOrdered By: [facility] on 07-05-2025 Albumin/Globulin [Mass ratio] 1.2 {ratio} 0.9-2.4 [facility] Serum or plasma alkaline rose marie sphatase measurementOrdered By: [facility] on 07-05-2025 ALP [Catalytic activity/Vol] 125 U/L 40-129 [facility] Total proteinOrdered By: Nitesh madiha Tillman on 07-05-2025 Protein [Mass/Vol] 6.6 g/dL 5.9-8.4 [facility] Absolute lymphocyte countOrd ered By: Randy Gibson on 07-04-2025 Lymphocytes Auto (Unsp spec) [#/Vol] 0.70 10*3/uL Low 0.83-4.51 [facility] Absolute neutrophil countOrd ered By: Randy Gibson on 07-04-2025 Neutrophils (Bld) [#/Vol] 8.1 10*3/uL High 2.0-7.7 [facility] Anion gap in Serum or Plasma Ordered By: Randy Gibson on 07-04-2025 Anion gap [Moles/Vol] 11 mmol/L 5-15 [facility] Automated blood erythrocyte countOrdered By: Randy Gibson on 07-04-2025 RBC (Bld) [#/Vol] 3.78 10*6/uL Low 4.6-6.2 [facility] Comment on above: Performed By: #### L 501.9520, L3100.1850, L501.4700, L501.9985, L506.1001, L504.2610, L100.9950 #### [facility] [place], [address] Automated blood hematocrit ( percentage)Ordered By: Randy Gibson on 07-04-2025 Hematocrit (Bld) [Volume fraction] 37.2 % Low 40-54 [facility] Comment on above: Performed By: #### L 501.9520, L3100.1850, L501.4700, L501.9985, L506.1001, L504.2610, L100.9950 #### [facility] [address] [place], [place], [address] Automated lymphocyte count a s percentage of total leukocytesOrdered By: Randy Gibson on 07-04-2025 Lymphocytes/100 WBC Auto (Unsp spec) 6.9 % Low 19-41 [facility] BUN/creatinine ratioOrdered By: Randy Gibson on 07-04-2025 Urea nitrogen/Creatinine [Mass ratio] 21.7 mg/mg High 10-20 [facility] Basophil percentageOrdered B y: Randy Gibson on 07-04-2025 Basophils/100 WBC (Bld) 0.5 % Normal 0-1 [facility] Comment on above: Performed By: #### L 501.9520, L3100.1850, L501.4700, L501.9985, L506.1001, L504.2610, L100.9950 #### [facility] [address] [place], [address] Bedside Glucoseon 07-04-2025 FINGERSTICK GLU 157 mg/dL High 74-106 [facility] Comment on above: Result Comment: ROBEL GEMENT OF PATIENT CARE PER NURSING PROTOCOL Performed By: #### L 501.9520, L3100.1850, L501.4700, L501.9985, L506.1001, L504.2610, L100.9950 #### [facility] [address] [place], [address] FINGERSTICK GLU 163 mg/dL High 74-106 [facility] Comment on above: Result Comment: ROBEL GEMENT OF PATIENT CARE PER NURSING PROTOCOL Performed By: #### L 501.080 #### [facility] [address] [place], [address] FINGERSTICK GLU 165 mg/dL High 74-106 [facility] Comment on above: Result Comment: ROBEL GEMENT OF PATIENT CARE PER NURSING PROTOCOL Performed By: #### L 501.9520, L3100.1850, L501.4700, L501.9985, L506.1001, L504.2610, L100.9950 #### [facility] [address] [place], [address] FINGERSTICK GLU 171 mg/dL High 74-106 [facility] Comment on above: Result Comment: ROBEL GEMENT OF PATIENT CARE PER NURSING PROTOCOL Performed By: #### L 501.9520, L3100.1850, L501.4700, L501.9985, L506.1001, L504.2610, L100.9950 #### [facility] [address] [place], [address] Bilirubin, totalOrdered By: Randy Gibson on 07-04-2025 Bilirubin [Mass/Vol] 1.47 mg/dL High 0.00-1.30 [facility] Comment on above: Performed By: #### L 501.9520, L3100.1850, L501.4700, L501.9985, L506.1001, L504.2610, L100.9950 #### [facility] [address] [place], [address] Brain/Head without Contrasto n 07-04-2025 Brain/Head without Contrast [facility] [address] [place] [address] Brain/Head without Contrast MR#: [id number] Acct: [id number] Name: KANDI GOMEZ Rep #: [id number] : 1945 M 80 From: Óscar cleary MD PCP: Dr. Billy Braga, DO Status: REG ER Study: Brain/Head without Contrast Date of Exam: 04/22 Exam# [id number] Ordering Dr: Randy Gibson DO PROCEDURE: BRAIN/HEAD [...] mild brain involutional changes. stable Reading Location: [place] [address] CC: Dr. Billy Braga DO; Dr. Randy Gibson DO Envelope Adjuster: Signed Normal [facility] CBC W/Diff, Automatedon Absolute Lymph 0.70 X10 3/uL Low 0.83-4.51 [facility] Comment on above: Performed By: #### L 501.9520, L3100.1850, L501.4700, L501.9985, L506.1001, L504.2610, L100.9950 #### [facility] [address] [place], [address] Absolute Neut 8.1 X10 3/uL High 2.0-7.7 [facility] Comment on above: Performed By: #### L 501.9520, L3100.1850, L501.4700, L501.9985, L506.1001, L504.2610, L100.9950 #### [facility] [address] [place], [address] IG% 0.900 Normal 0.0-0.9 [facility] Comment on above: Result Comment: IG% - Immature Granulocytes (promyelocytes, myelocytes and metamyelocytes) > 1% indicates that a LEFT SHIFT is Present. Performed By: #### L 501.9520, L3100.1850, L501.4700, L501.9985, L506.1001, L504.2610, L100.9950 #### [facility] [address] [place], [address] Lymphocytes/100 WBC (Bld) 6.9 % Low 19-41 [facility] Comment on above: Performed By: #### L 501.9520, L3100.1850, L501.4700, L501.9985, L506.1001, L504.2610, L100.9950 #### [facility] [address] [place], [address] Nucleated RBC (Bld) [#/Vol] 0 10*3/uL Normal 0-5 [facility] Comment on above: Performed By: #### L 501.9520, L3100.1850, L501.4700, L501.9985, L506.1001, L504.2610, L100.9950 #### [facility] [address] [place], [address] RDW SD 49.6 fl High 35.1-43.9 [facility] Comment on above: Performed By: #### L 501.9520, L3100.1850, L501.4700, L501.9985, L506.1001, L504.2610, L100.9950 #### [facility] [address] [place], [place], [id number] Carbon dioxide, total [Moles /volume] in Central venous bloodOrdered By: Randy Gibson on 07-04-2025 CO2 [Moles/Vol] 23.6 mmol/L Normal 21.0-32.0 [facility] Comment on above: Performed By: #### L 501.9520, L3100.1850, L501.4700, L501.9985, L506.1001, L504.2610, L100.9950 #### [facility] [address] [place], [place], [phone] (525) Chloride assayOrdered By: Ramsey Gibson on 07-04-2025 Chloride [Moles/Vol] 106 mmol/L Normal 98-108 [facility] Comment on above: Performed By: #### L 501.9520, L3100.1850, L501.4700, L501.9985, L506.1001, L504.2610, L100.9950 #### [facility] [address] [place], [place], [phone] (669) Comprehensive Metabolic Prof ilon 07-04-2025 ALK PHOS 129 U/L Normal 40-129 [facility] Comment on above: Performed By: #### L 501.9520, L3100.1850, L501.4700, L501.9985, L506.1001, L504.2610, L100.9950 #### [facility] [address] [place], [place], [phone] (689) BUN/CRE 21.7 RATIO High 10-20 [facility] Comment on above: Performed By: #### L 501.9520, L3100.1850, L501.4700, L501.9985, L506.1001, L504.2610, L100.9950 #### [facility] [address] [place], [address] ECRCL 70.79 ml/min Normal 50-250 [facility] Comment on above: Performed By: #### L 501.9520, L3100.1850, L501.4700, L501.9985, L506.1001, L504.2610, L100.9950 #### [facility] [address] [place], [address] GAP 11 Normal 5-15 [facility] Comment on above: Performed By: #### L 501.9520, L3100.1850, L501.4700, L501.9985, L506.1001, L504.2610, L100.9950 #### [facility] [address] [place], [address] Potassium [Moles/Vol] 4.3 mmol/L Normal 3.3-5.1 [facility] Comment on above: Performed By: #### L 501.9520, L3100.1850, L501.4700, L501.9985, L506.1001, L504.2610, L100.9950 #### [facility] [address] [place], [address] T PROT 6.5 g/dL Normal 5.9-8.4 [facility] Comment on above: Performed By: #### L 501.9520, L3100.1850, L501.4700, L501.9985, L506.1001, L504.2610, L100.9950 #### [facility] [address] [place], [address] Comprehensive Metabolic Prof ilOrdered By: Randy Gibson on 07-04-2025 AST [Catalytic activity/Vol] 24 U/L Normal <=37 [facility] Comment on above: Performed By: #### L 501.9520, L3100.1850, L501.4700, L501.9985, L506.1001, L504.2610, L100.9950 #### [facility] [address] [place], [address] Consultation - Orthopedicson 07-04-2025 Consultation - Orthopedics [facility] Medical Records Department [address] [place] [address] Consultation - Orthopedics 07/04/25 0930 MR#: [id number] Acct: [id number] Name: KANDI GOMEZ Rep #: [id number] : 1945 80 From: Umer Rivera MD PCP: Dr. Billy Braga, DO Status:ADM LILY Location: [address] HPI Consult Data Date of Consult: 07/04/25 HPI Narrative HPI Narrative: KANDI GOMEZ is a 80 M who presents with L proximal humerus fracture after multiple falls. [facility] Medical History (Updated 07/04/25 @ 08:50 by [...] 79.6 H, Lymph % (Auto) 6.9 L, Hanson % (Auto) 9.9, Eos % (Auto) 2.2, [...] 2.7, Albu (more content not included)... Normal [facility] Emergency Department Summary on 07-04-2025 Emergency Department Summary [facility] Medical Records Department [address] [place] [address] Emergency Department Summary 07/04/25 MR#: [id number] Acct: [id number] Name: KANDI GOMEZ Rep #: [id number] : 1945 80 From: Randy Gibson DO PCP: Dr. Billy Braga, DO Status:REG ER Location: ED HPI History of Present Illness Chief Complaint: Fall [facility] Medical History Tonsil and adenoid disease, [...] Medicine (Dr. Tillman), orthopedic surgery (Dr. Rivera) [facility] Narrative: The patient (more content not included)... Normal [facility] Eosinophil percentageOrdered By: Randy Gibson on 07-04-2025 Eosinophils/100 WBC (Bld) 2.2 % Normal 0-5 [facility] Comment on above: Performed By: #### L 501.9520, L3100.1850, L501.4700, L501.9985, L506.1001, L504.2610, L100.9950 #### [facility] Laboratory [address] [place], [place], [id number] Erythrocyte distribution wid th ratioOrdered By: Randy Gibson on 07-04-2025 Erythrocyte distribution width (RBC) [Ratio] 13.6 % Normal 11.6-14.6 [facility] Comment on above: Performed By: #### L 501.9520, L3100.1850, L501.4700, L501.9985, L506.1001, L504.2610, L100.9950 #### [facility] [address] [place], [place], [id number] Erythrocyte distribution wid th standard deviationOrdered By: Randy Gibson on 07-04-2025 Erythrocyte distribution width (RBC) [Ratio] 49.6 fl High 35.1-43.9 [facility] Glomerular filtration rate ( GFR) estimation/1.73 sq m using serum, plasma, or whole bOrdered By: Randy Gibson on 07-04-2025 GFR/1.73 sq M.predicted among non-blacks MDRD (S/P/Bld) [Vol rate/Area] 64 mL/min/{1.73_m2} Normal >60 [facility] Comment on above: mL/min/1.73m2 CKD-EP I Creatinine Equation (2020) Result Comment: mL/m in/1.73m2 CKD-EPI Creatinine Equation (2020) Performed By: #### L 501.9520, L3100.1850, L501.4700, L501.9985, L506.1001, L504.2610, L100.9950 #### [facility] Laboratory [address] [place], [place], [address] [facility]&P Exam - Hospitalist [facility] Medical Records Department [address] [place] [address] H P Exam - Hospitalist 07/04/25 0413 MR#: [id number] Acct: [id number] Name: KANDI GOMEZ Rep #: [id number] : 1945 80 From: Amarilis Tillman MD [...] discharged to home now re-presenting to the [facility] ED on 07/04/2025 with another mechanical [...] no acute surgical plans per ED report. [facility] Medical History (Updated 07/04/25 @ 04:28 by [...] cough or (more content not included)... Normal [facility] Hemoglobin measurementOrdere d By: Randy Gibson on 07-04-2025 Hemoglobin (Bld) [Mass/Vol] 11.9 g/dL Low 13.0-16.5 [facility] Comment on above: Performed By: #### L 501.9520, L3100.1850, L501.4700, L501.9985, L506.1001, L504.2610, L100.9950 #### [facility] [address] [facility] [place], [address] Humerus min 2 Viewson 2024 Humerus min 2 Views [facility] Imaging Services [address] [place] [address] Humerus min 2 Views MR#: [id number] Acct: [id number] Name: KANDI GOMEZ Michaela Rep #: [id number] : 1945 M 80 From: Óscar cleary MD PCP: Dr. Billy Braga, DO Status: REG ER Study: Humerus min 2 Views Date of Exam: 07/04/25 Exam# [id number] Ordering Dr: Randy Gibson DO PROCEDURE: HUMERUS [...] soft tissue edema and swelling. Reading Location[facility] CC: Dr. Billy Braga, DO; Dr. Randy Gibson, DO Envelope Adjuster: Signed Normal [facility] Immature granulocytes/100 WB C Auto (Bld)Ordered By: Randy Gibson on 07-04-2025 Immature granulocytes/100 WBC (Bld) 0.900 % 0.0-0.9 [facility] Comment on above: IG% - Immature Granu locytes (promyelocytes, myelocytes and metamyelocytes) > 1% indicates that a LEFT SHIFT is Present. MCV (mean corpuscular volume ) determinationOrdered By: Randy Gibson on 07-04-2025 MCV (RBC) [Entitic vol] 98.4 fL High 80-94 [facility] Comment on above: Performed By: #### L 501.9520, L3100.1850, L501.4700, L501.9985, L506.1001, L504.2610, L100.9950 #### [facility] [address] [place], [place], [id number] Magnesiumon 07-04-2025 Magnesium [Mass/Vol] 1.8 mg/dL Normal 1.5-2.2 [facility] Comment on above: Order Comment: Comme nts: may add to ED labs Performed By: #### L 501.9520, L3100.1850, L501.4700, L501.9985, L506.1001, L504.2610, L100.9950 #### [facility] [address] [place], [address] Mean corpuscular hemoglobin (MCH) determinationOrdered By: Randy Gibson on 07-04-2025 MCH (RBC) [Entitic mass] 31.5 pg Normal 27.0-32.0 [facility] Comment on above: Performed By: #### L 501.9520, L3100.1850, L501.4700, L501.9985, L506.1001, L504.2610, L100.9950 #### [facility] [address] [place], [place], [address] Mean corpuscular hemoglobin concentration (MCHC) determinationOrdered By: Randy Gibson on 07-04-2025 MCHC (RBC) [Mass/Vol] 32.0 g/dL Normal 32-36 [facility] Comment on above: Performed By: #### L 501.9520, L3100.1850, L501.4700, L501.9985, L506.1001, L504.2610, L100.9950 #### [facility] [address] [place], [address] Mean platelet volume determi nationOrdered By: Randy Gibson on 07-04-2025 Platelet mean volume (Bld) [Entitic vol] 9.3 fL Normal 6.2-12.0 [facility] Comment on above: Performed By: #### L 501.9520, L3100.1850, L501.4700, L501.9985, L506.1001, L504.2610, L100.9950 #### [facility] [address] [place], [address] Monocyte percentageOrdered B y: Randy Gibson on 07-04-2025 Monocytes/100 WBC (Bld) 9.9 % Normal 0-10 [facility] Comment on above: Performed By: #### L 501.9520, L3100.1850, L501.4700, L501.9985, L506.1001, L504.2610, L100.9950 #### [facility] [address] [place], [address] Neutrophil percentageOrdered By: Randy Gibson on 07-04-2025 Neutrophils/100 WBC (Bld) 79.6 % High 47-70 [facility] Comment on above: Performed By: #### L 501.9520, L3100.1850, L501.4700, L501.9985, L506.1001, L504.2610, L100.9950 #### [facility] [address] [place], [address] Nucleated red blood cell per centageOrdered By: Randy Gibson on 07-04-2025 Nucleated RBC/100 WBC (Bld) [Ratio] 0 % 0-5 [facility] Platelet countOrdered By: Ramsey Gibson on 07-04-2025 Platelets (Bld) [#/Vol] 269 10*3/uL Normal 150-450 [facility] Comment on above: Performed By: #### L 501.9520, L3100.1850, L501.4700, L501.9985, L506.1001, L504.2610, L100.9950 #### [facility] [address] [place], [address] Potassium measurement (mass/ volume)Ordered By: Randy Gibson on 07-04-2025 Potassium (Unsp spec) [Mass/Vol] 4.3 mmol/L 3.3-5.1 [facility] Serum creatinine measurement (mass/volume)Ordered By: Randy Gibson on 07-04-2025 Creatinine [Mass/Vol] 1.17 mg/dL Normal 0.70-1.20 [facility] Comment on above: Performed By: #### L 501.9520, L3100.1850, L501.4700, L501.9985, L506.1001, L504.2610, L100.9950 #### [facility] [address] [place], [address] Serum globulin measurementOr dered By: Randy Gibson on 07-04-2025 Globulin (S) [Mass/Vol] 2.7 g/dL Normal 2.2-4.2 [facility] Comment on above: Performed By: #### L 501.9520, L3100.1850, L501.4700, L501.9985, L506.1001, L504.2610, L100.9950 #### [facility] [address] [facility] [place], [address] (631) Serum glucose measurement (m ass/volume)Ordered By: Randy Gibson on 07-04-2025 Glucose [Mass/Vol] 195 mg/dL High 70-99 [facility] Comment on above: Performed By: #### L 501.9520, L3100.1850, L501.4700, L501.9985, L506.1001, L504.2610, L100.9950 #### [facility] [address] [facility] [place], [address] (928) Serum or plasma alanine cardoza otransferase (ALT) measurementOrdered By: Randy Gibson on 07-04-2025 ALT [Catalytic activity/Vol] 19 U/L Normal <=46 [facility] Comment on above: Performed By: #### L 501.9520, L3100.1850, L501.4700, L501.9985, L506.1001, L504.2610, L100.9950 #### [facility] [address] [facility] [place], [address] (593) Serum or plasma albumin sheldon urement (mass/volume)Ordered By: Randy Gibson on 07-04-2025 Albumin [Mass/Vol] 3.8 g/dL Normal 3.4-4.8 [facility] Comment on above: Performed By: #### L 501.9520, L3100.1850, L501.4700, L501.9985, L506.1001, L504.2610, L100.9950 #### [facility] [address] [facility] [place], [address] (764) Serum or plasma albumin/glob ulin mass ratioOrdered By: Randy Gibson on 07-04-2025 Albumin/Globulin [Mass ratio] 1.4 {ratio} Normal 0.9-2.4 [facility] Comment on above: Performed By: #### L 501.9520, L3100.1850, L501.4700, L501.9985, L506.1001, L504.2610, L100.9950 #### [facility] [address] [place], [address] Serum or plasma alkaline rose marie sphatase measurementOrdered By: Randy Gibson on 07-04-2025 ALP [Catalytic activity/Vol] 129 U/L 40-129 [facility] Serum or plasma calcium sheldon urement (mass/volume)Ordered By: Randy Gibson on 07-04-2025 Calcium [Mass/Vol] 9.1 mg/dL Normal 7.6-11.0 [facility] Comment on above: Performed By: #### L 501.9520, L3100.1850, L501.4700, L501.9985, L506.1001, L504.2610, L100.9950 #### [facility] [address] [place], [address] Serum or plasma urea nitroge n measurement (mass/volume)Ordered By: Randy Gibson on 07-04-2025 Urea nitrogen [Mass/Vol] 25 mg/dL High 4-19 [facility] Comment on above: Performed By: #### L 501.9520, L3100.1850, L501.4700, L501.9985, L506.1001, L504.2610, L100.9950 #### [facility] [address] [place], [address] Shoulder min 2 Viewson 07-04 Shoulder min 2 Views [facility] Imaging Services [address] [place] [address] Shoulder min 2 Views MR#: [id number] Acct: [id number] Name: KANDI GOMEZ Rep #: [id number] : 1945 M 80 From: Óscar cleary MD PCP: Dr. Billy Braga, DO Status: REG ER Study: Shoulder min 2 Views Date of Exam: 07/04/25 Exam# [id number] Ordering Dr: Randy Gibson DO PROCEDURE: SHOULDER [...] soft tissue edema and swelling. Reading Location: [place] [address] CC: Dr. Billy Braga DO; Dr. Randy Gibson DO Envelope Adjuster: Signed Normal [facility] Sodium levelOrdered By: Matthew Gibson on 07-04-2025 Sodium [Moles/Vol] 140 mmol/L Normal 133-145 [facility] Comment on above: Performed By: #### L 501.9520, L3100.1850, L501.4700, L501.9985, L506.1001, L504.2610, L100.9950 #### [facility] [address] [facility] [place], [address] Spine Cervical without Contr ason 07-04-2025 Spine Cervical without Contras [facility] Imaging Services [address] [place] [address] Spine Cervical without Contras MR#: [id number] Acct: [id number] Name: KANDI GOMEZ Rep #: [id number] : 1945 M 80 From: Óscar cleary MD PCP: Dr. Billy Braga DO Status: REG ER Study: Spine Cervical without Contras Date of Exam: 0 07/04/25 Exam# [id number] Ordering Dr: Randy Gibson DO PROCEDURE: SPINE [...] Stable study findings as detailed. Reading [facility] CC: Dr. Billy Braga, DO; Dr. Randy Gibson, Envelope Adjuster: Signed Normal [facility] Total proteinOrdered By: Geo Gibson on 07-04-2025 Protein [Mass/Vol] 6.5 g/dL 5.9-8.4 [facility] White blood cell (WBC) count Ordered By: Randy Gibson on 07-04-2025 WBC (Bld) [#/Vol] 10.1 10*3/uL Normal 4.4-11.0 [facility] Comment on above: Performed By: #### L 501.9520, L3100.1850, L501.4700, L501.9985, L506.1001, L504.2610, L100.9950 #### [facility] [address] [place], [address] Brain/Head without Contrasto n 07-03-2025 Brain/Head without Contrast [facility] Imaging Services [address] [place] [address] Brain/Head without Contrast MR#: [id number] Acct: [id number] Name: KANDI GOMEZ Rep #: [id number] : 1945 M 80 From: Rose Mary Parnell PCP: Dr. Billy Braga DO Status: REG ER Study: Brain/Head without Contrast Date of Exam: 03/22 Exam# [id number] Ordering Dr: Mj Ngo DO PROCEDURE: BRAIN/HEAD [...] IMPRESSION: No acute intracranial process. Reading Location: [id number] CC: Dr. Billy Braga DO; Dr. Mj Ngo DO Envelope Adjuster: Signed Normal [facility] Emergency Department Summary on 07-03-2025 Emergency Department Summary [facility] Medical Records Department [address] [place] [address] Emergency Department Summary 07/03/25 MR#: [id number] Acct: [id number] Name: KANDI GOMEZ Rep #: [id number] : 1945 80 From: Mj Ngo DO [...] of right hand pain and a cut. [facility] Medical History Tonsil and adenoid disease, [...] following commands knew that he was at [facility] year is 2024 Skin: Warm, dry, [...] phalanx fracture (more content not included)... Normal [facility] Forearm 2 Viewson 07-03-2025 Forearm 2 Views [facility] Imaging Services [address], [place] [address] Forearm 2 Views MR#: [id number] Acct: [id number] Name: KANDI GOMEZ Rep #: [id number] : 1945 M 80 From: Rose Mary Parnell PCP: Dr. Billy Braga DO Status: REG ER Study: Forearm 2 Views Date of Exam: 07/03/25 Exam# [id number] Ordering Dr: Mj Ngo DO PROCEDURE: FOREARM 2 VIEWS 07/03/2025 REASON FOR EXAM: FALL TECHNIQUE: Procedure Code: RADFA Modality: DX Procedure: FOREARM 2 VIEWS COMPARISON: None RAD/Forearm 2 Views IMPRESSION: No acute fracture or dislocations. Scattered mild degenerative changes. No acute soft tissue abnormalities. No radiographic foreign body. Reading Location: [facility] CC: Dr. Billy Braga DO; Dr. Mj Ngo DO Envelope Adjuster: Signed Normal [facility] Hand Min 3 Viewson Hand Min 3 Views [facility] Imaging Services [address], [place] [address] Hand Min 3 Views MR#: [id number] Acct: [id number] Name: KANDI GOMEZ Rep #: [id number] : 1945 M 80 From: Rose Mary Parnell PCP: Dr. Billy Braga DO Status: REG ER Study: Hand Min 3 Views Date of Exam: 07/03/25 Exam# [id number] Ordering Dr: Mj Ngo DO PROCEDURE: HAND MIN 3 VIEWS 07/03/2025 REASON FOR EXAM: FALL, HAND LAC BASE OF 5TH TECHNIQUE: Procedure Code: GINNA Modality: DX Procedure: HAND MIN 3 VIEWS Laterality: COMPARISON: None RAD/Hand Min 3 Views IMPRESSION: No acute fracture or dislocations. Scattered mild degenerative changes. Mild soft tissue edema/contusion. No radiographic foreign body. Reading Location: [id number] CC: Dr. Billy Braga DO; Dr. Mj Ngo DO Envelope Adjuster: Signed Normal [facility] Spine Cervical without Contr ason 07-03-2025 Spine Cervical without Contras [facility] Imaging Services [address] [place] [address] Spine Cervical without Contras MR#: [id number] Acct: [id number] Name: KANDI GOMEZ Rep #: [id number] : 1945 M 80 From: Rose Mary Parnell PCP: Dr. Billy Braga DO Status: REG ER Study: Spine Cervical without Contras Date of Exam: 0 07/03/25 Exam# [id number] Ordering Dr: Mj Ngo DO PROCEDURE: SPINE [...] stenosis most prominent at C6-C7. Reading Location: [facility] CC: Dr. Billy Braga DO; Dr. Mj Ngo DO Envelope Adjuster: Signed Normal [facility] Wrist min 3 Viewson 07-03-20 Wrist min 3 Views [facility] Imaging Services [address], [place] [address] Wrist min 3 Views MR#: [id number] Acct: [id number] Name: KANDI GOMEZ Rep #: [id number] : 1945 M 80 From: Rose Mary Parnell PCP: Dr. Billy Braga DO Status: REG ER Study: Wrist min 3 Views Date of Exam: 07/03/25 Exam# [id number] Ordering Dr: Mj Ngo DO PROCEDURE: WRIST MIN 3 VIEWS 07/03/2025 REASON FOR EXAM: FALL TECHNIQUE: Procedure Code: RADWR Modality: DX Procedure: WRIST MIN 3 VIEWS COMPARISON: None RAD/Wrist min 3 Views IMPRESSION: No acute fracture or dislocations. Scattered mild degenerative changes. No acute soft tissue abnormalities. No radiographic foreign body. Reading Location: [facility] CC: Dr. Billy Braga DO; Dr. Mj Ngo DO Envelope Adjuster: Signed Normal [facility] Absolute lymphocyte countOrd ered By: Dr. Alford on 12-26-2022 Lymphocytes Auto (Unsp spec) [#/Vol] 1.22 10*3/uL 0.83-4.51 [facility] Basophil percentageOrdered B y: Dr. Alford on 12-26-2022 Basophils/100 WBC (Bld) 0.6 % 0-1 [facility] Bilirubin [Mass/Vol] 1.80 mg/dL 0.20-1.00 [facility] Comment on above: For patients on eltr ombopag therapy, use of Dimension [place] TBIL is not recommended. Chloride [Moles/Vol] 105 mmol/L 98-107 [facility] Eosinophils/100 WBC (Bld) 1.6 % 0-5 [facility] Glucose [Mass/Vol] 157 mg/dL 74-106 [facility] Comment on above: Fasting Glucose resu lt greater than or equal to 126 mg/dL suggests DIABETES MELLITUS per A.D.A. criteria. Neutrophils (Bld) [#/Vol] 7.4 10*3/uL 2.0-7.7 [facility] Neutrophils/100 WBC (Bld) 75.5 % 47-70 [facility] Potassium [Moles/Vol] 4.6 mmol/L 3.5-5.1 [facility] Protein [Mass/Vol] 7.2 g/dL 6.4-8.2 [facility] Sodium [Moles/Vol] 140 mmol/L 136-145 [facility] WBC (Bld) [#/Vol] 9.8 10*3/uL 4.4-11.0 [facility] Blood erythrocytes count (nu mber/volume)Ordered By: Dr. Alford on 12-26-2022 RBC (Bld) [#/Vol] 4.36 10*6/uL 4.6-6.2 [facility] Blood hemoglobin measurement (mass/volume)Ordered By: Dr. Alford on 12-26-2022 Hemoglobin (Bld) [Mass/Vol] 13.4 g/dL 13.0-16.5 [facility] Blood lymphocytes/100 leukoc ytesOrdered By: Dr. Alford on 12-26-2022 Lymphocytes/100 WBC (Bld) 12.5 % 19-41 [facility] Blood monocytes/100 leukocyt esOrdered By: Dr. Alford on 12-26-2022 Monocytes/100 WBC (Bld) 9.2 % 0-10 [facility] Blood platelet mean volumeOr dered By: Dr. Alford on 12-26-2022 Platelet mean volume (Bld) [Entitic vol] 9.9 fL 6.2-12.0 [facility] COVID-19 virus antigen assay Ordered By: Dr. Alford on 12-26-2022 SARS-CoV-2 (COVID-19) Ag IA.rapid Ql (Resp) [facility] Determination of erythrocyte mean corpuscular volume (MCV)Ordered By: Dr. Alford on 12-26-2022 MCV (RBC) [Entitic vol] 100.0 fL 80-94 [facility] Hematocrit Auto (Bld) [Volum e fraction]Ordered By: Dr. Alford on 12-26-2022 Hematocrit (Bld) [Volume fraction] 43.6 % 40-54 [facility] Laboratory - Chemistry and C hemistry - challengeOrdered By: Dr. Alford on 12-26-2022 ALP [Catalytic activity/Vol] 119 U/L 45-117 [facility] ALT [Catalytic activity/Vol] 27 U/L 16-61 [facility] CO2 [Moles/Vol] 26.0 mmol/L 21.0-32.0 [facility] Globulin (S) [Mass/Vol] 3.4 g/dL 2.2-4.2 [facility] Natriuretic peptide B (Bld) [Mass/Vol] 653.8 pg/mL 0-100 [facility] Urea nitrogen/Creatinine [Mass ratio] 16.8 mg/mg 10-20 [facility] Laboratory - Hematology and Cell countsOrdered By: Dr. Alford on 12-26-2022 Erythrocyte distribution width (RBC) [Entitic vol] 52.6 fL 35.1-43.9 [facility] Erythrocyte distribution width (RBC) [Ratio] 14.5 % 11.6-14.6 [facility] Immature granulocytes/100 WBC (Bld) 0.600 % 0.0-0.9 [facility] Comment on above: IG% - Immature Granu locytes (promyelocytes, myelocytes and metamyelocytes) > 1% indicates that a LEFT SHIFT is Present. MCH (RBC) [Entitic mass] 30.7 pg 27.0-32.0 [facility] Nucleated RBC/100 WBC (Bld) [Ratio] 0 % 0-5 [facility] MCHC Auto (RBC) [Mass/Vol]Or dered By: Dr. Alford on 12-26-2022 MCHC (RBC) [Mass/Vol] 30.7 g/dL 32-36 [facility] No Panel InformationOrdered By: Dr. Alford on 12-26-2022 Estimated Creatinine Clearance Calc 36.95 ml/min [facility] Estimated GFR (MDRD) Amer 46 mL/min >60 [facility] Comment on above: GFR Calc Estimated GFR (MDRD) Non-Af Amer 38 mL/min >60 [facility] Comment on above: Non- GFR Calc Troponin I High Sensitivity 8 pg/mL 3.0-78.0 [facility] Comment on above: Please Note: [place] t Units and Gender Specific Reference Ranges. For more information see Policy Stat Procedure [place] High Sensitivity Troponin (TNIH) and attachments. Platelets bldOrdered By: Dr. Alford on 12-26-2022 Platelets (Bld) [#/Vol] 292 10*3/uL 150-450 [facility] Serum or plasma albumin sheldon urement (mass/volume)Ordered By: Dr. Alford on 12-26-2022 Albumin [Mass/Vol] 3.8 g/dL 3.2-5.0 [facility] Serum or plasma albumin/glob ulin mass ratioOrdered By: Dr. Alford on 12-26-2022 Albumin/Globulin [Mass ratio] 1.1 {ratio} 0.9-2.4 [facility] Serum or plasma calcium sheldon urement (mass/volume)Ordered By: Dr. Alford on 12-26-2022 Calcium [Mass/Vol] 9.7 mg/dL 8.5-10.1 [facility] Serum or plasma creatinine m easurement (mass/volume)Ordered By: Dr. Alford on 12-26-2022 Creatinine [Mass/Vol] 1.84 mg/dL 0.70-1.30 [facility] Comment on above: The validity of the calculated GFR & GFRAA in patients over 70 years has not been determined. Clinical correlation is essential. Serum or plasma urea nitroge n measurement (mass/volume)Ordered By: Dr. Alford on 12-26-2022 Urea nitrogen [Mass/Vol] 31 mg/dL 7-18 [facility] Thin prep Papanicolaou smear with manual screeningOrdered By: Dr. Alford on 12-26-2022 Thin prep Papanicolaou smear with manual screening 19 U/L 15-37 [facility] Thin prep Papanicolaou smear with manual screening 9 5-15 [facility] Vital Signs Date Time Vital Sign Value Performing Clinician Max morelos 07-06-2025 13:51-0400 Body temperature 97.3 [degF] Dr. Billy Braga DO Work Phone: [facility] 07-06-2025 13:51-0400 Diastolic blood pressure 50 mm[Hg] Dr. Billy Braga DO Work Phone: [facility] 07-06-2025 13:51-0400 Heart rate 67 /min Dr. Billy Braga DO Work Phone: [facility] 07-06-2025 13:51-0400 Respiratory rate 15 /min Dr. Billy Braga DO Work Phone: [facility] 07-06-2025 13:51-0400 SaO2% (BldA) [Mass fraction] 95 % Dr. Billy Braga DO Work Phone: [facility] 07-06-2025 13:51-0400 Systolic blood pressure 99 mm[Hg] Dr. Billy Braga DO Work Phone: [facility] 07-06-2025 06:00-0400 Body mass index (BMI) [Ratio] 38.6 kg/m2 Dr. Billy Braga DO Work Phone: [facility] 07-06-2025 06:00-0400 Body weight 118.[address] Billy Braga DO Work Phone: [facility] 07-06-2025 04:38-0400 Inhaled oxygen flow rate 2 L/min Dr. Billy Braga DO Work Phone: [facility] 07-04-2025 05:40-0400 Body height 175.[address] Billy Braga DO Work Phone: [facility] 07-04-2025 04:37-0400 Body temperature 97.6 [degF] Dr. Billy Braga DO [facility] [facility] 07-04-2025 04:37-0400 Diastolic blood pressure 54 mm[Hg] Dr. Billy Braga DO Work Phone: [facility] 07-04-2025 04:37-0400 Heart rate 58 /min Dr. Billy Braga DO Work Phone: [facility] 07-04-2025 04:37-0400 Respiratory rate 15 /min Dr. Billy Braga DO Work Phone: [facility] 07-04-2025 04:37-0400 SaO2% (BldA) [Mass fraction] 93 % Dr. Billy Braga DO Work Phone: [facility] 07-04-2025 04:37-0400 Systolic blood pressure 108 mm[Hg] Dr. Billy Braga DO Work Phone: [facility] 07-04-2025 01:17-0400 Body height 180.[address] Billy Braga DO Work Phone: [facility] 07-04-2025 01:17-0400 Body mass index (BMI) [Ratio] 39.2 kg/m2 Dr. Billy Braga DO Work Phone: [facility] 07-04-2025 01:17-0400 Body weight 127.[address] Billy Braga DO Work Phone: [facility] 07-03-2025 08:03-0400 Body temperature 97.9 [degF] Dr. Billy Braga DO Work Phone: [facility] 07-03-2025 08:03-0400 Diastolic blood pressure 69 mm[Hg] Dr. Billy Braga DO Work Phone: [facility] 07-03-2025 08:03-0400 Heart rate 67 /min Dr. Billy Braga DO Work Phone: [facility] 07-03-2025 08:03-0400 Respiratory rate 16 /min Dr. Billy Braga DO Work Phone: [facility] 07-03-2025 08:03-0400 SaO2% (BldA) [Mass fraction] 97 % Dr. Billy Braga DO Work Phone: [facility] 07-03-2025 08:03-0400 Systolic blood pressure 151 mm[Hg] Dr. Billy Braga DO Work Phone: [facility] 07-03-2025 06:45-0400 Body height 180.[address] Billy Braga DO Work Phone: [facility] 07-03-2025 06:45-0400 Body mass index (BMI) [Ratio] 37.7 kg/m2 Dr. Billy Braga DO Work Phone: [facility] 07-03-2025 06:45-0400 Body weight 122.[address] Billy Braga DO Work Phone: [facility] 12-26-2022 17:42-0500 Body temperature 98 [degF] [facility] 12-26-2022 17:42-0500 Diastolic blood pressure 88 mm[Hg] [facility] 12-26-2022 17:42-0500 Heart rate 67 /min [facility] 12-26-2022 17:42-0500 Respiratory rate 18 /min [facility] 12-26-2022 17:42-0500 SaO2% (BldA) [Mass fraction] 92 % [facility] 12-26-2022 17:42-0500 Systolic blood pressure 123 mm[Hg] [facility] 12-26-2022 15:22-0500 Body height 180.34 cm [facility] 12-26-2022 15:22-0500 Body mass index (BMI) [Ratio] 38.1 kg/m2 [facility] 12-26-2022 15:22-0500 Body weight 124.1 kg [facility] Encounters Encounter Date Encounter Type Care Provider Facility Start: 08-12-2025 ambulatory Billy Braga Facility: [facility] Start: 07-23-2025 ambulatory Umer Molljohnny Facility :[facility] Start: 07-20-2025 ambulatory Umer Molljohnny Facility :[facility] Start: 07-17-2025 ambulatory Lois Oconnor Facility:[facility] Start: 07-06-2025 ambulatory Kandi Hou Facility:[facility] Start: 07-06-2025 End: 07-17-2025 [facility] Start: 07-06-2025 Non-patient / Non-visit Dr. Jerrell martines DO -[facility] Work Phone: Start: 07-05-2025 Non-patient / Non-visit Dr. Tigre jordan MD -[facility] Work Phone: Start: 07-04-2025 Non-patient / Non-visit Dr. Umer hines MD -[facility] Start: 07-04-2025 End: 07-06-2025 Evaluation and management of inpatient Dr. Amarilis Tillman MD -[facility] Work Phone: Start: 07-04-2025 End: 07-06-[address] Billy Braga DO Work Phone: [facility] Start: 07-04-2025 End: 07-06-2025 ambulatory Jerrell Maryamzak Facility:[facility] Start: 07-04-2025 Non-patient / Non-visit Dr. Amarilis Tillman MD -[facility] Work Phone: Start: 07-03-2025 End: 07-03-2025 Emergency department patient visit Dr. Billy Braga DO Work Phone: -Emergency Department Work Phone: Start: 12-26-2022 End: 12-26-2022 Emergency department patient visit [facility]-Emergency Department Procedures Date Procedure Procedure Detail [...] Activity Detail Author Start: 07-06-2025 Patient discharge [facility] Start: 07-05-2025 [facility] Start: 07-04-2025 Application of inter mittent pneumatic compression device [facility] Start: 07-04-2025 Assessment of risk o f venous thromboembolism [facility] Start: 07-04-2025 Care regimes management [facility] Start: 07-04-2025 Consultation [facility] Start: 07-04-2025 Fall prevention [facility] Start: 07-04-2025 Inhalation therapy procedure [facility] Start: 07-04-2025 Insertion of cathete r into peripheral vein [facility] Start: 07-04-2025 Introduction of urin nathan catheter [facility] Start: 07-04-2025 Measuring intake and output [facility] Start: 07-04-2025 Notification of physician [facility] Start: 07-04-2025 Oxygen therapy [facility] Start: 07-04-2025 Providing care accor ding to standard [facility] Start: 07-04-2025 Provision of activit y privileges [facility] Start: 07-04-2025 Referral to occupati onal therapist [facility] Start: 07-04-2025 Referral to service [facility] Start: 07-04-2025 End: 07-04-2025 [facility] Start: 07-04-2025 Following clinical p athway protocol [facility] Start: 07-04-2025 Verification routine [facility] Start: 07-04-2025 Admission procedure [facility] Start: 07-04-2025 Hospital admission, emergency, from emergency room, medical nature [facility] Start: 07-04-2025 Application of ice c ollar, cap or bag [facility] Start: 07-03-2025 [facility] Magnesium measurement [facility] Patient Education What Is Heart Failure [facility] Work Phone: Patient referral [facility] Work Phone: Immunizations Immunization Date Immunization Notes Care Provider Fa doug 07-03-2025 tetanus toxoid, redu pj diphtheria toxoid, and acellular pertussis vaccine, adsorbed Dr. Billy Braga DO Work Phone: [facility] 02-12-2025 Pfizer Covid-19 (Comirnaty) Dr. Billy Braga DO Work Phone: [facility] 08-06-2024 influenza, high dose seasonal, preservative-free Dr. Billy Braga DO Work Phone: [facility] 07-31-2023 influenza, injectabl e, quadrivalent, preservative free Dr. Billy Braga DO Work Phone: [facility] 01-04-2023 Covid Pfizer Bivalen t Booster Dr. Billy Braga DO Work Phone: [facility] 11-01-2021 Covid (Pfizer) Dr. Billy lindsay DO Work Phone: [facility] 01-18-2021 Covid (Pfizer) Dr. Billy lindsay DO Work Phone: [facility] 12-29-2020 Covid (Pfizer) Dr. Billy lindsay DO Work Phone: [facility] 09-24-2020 influenza, injectabl e, quadrivalent, preservative free Dr. Billy Braga DO Work Phone: [facility] 04-21-2019 tetanus toxoid, redu pj diphtheria toxoid, and acellular pertussis vaccine, adsorbed [facility] 01-21-[address] Billy Braga DO Work Phone: [facility] 11-11-[address] Billy Braga DO Work Phone: [facility] 08-30-2016 zoster vaccine, live Dr. Andra Braga DO Work Phone: [facility] 07-15-2015 pneumococcal conjuga te vaccine, [address] Billy Braga DO Work Phone: [facility] 03-10-2013 diphtheria, tetanus toxoids and acellular pertussis vaccine Dr. Billy Braga DO Work Phone: [facility] 03-10-2013 pneumococcal vaccine , unspecified formulation Dr. Billy Braga DO Work Phone: [facility] Payers Date Payer Category Payer Medicare [id number] 2025 Self-pay [id number] 2025 Self-pay [id number] Unknown [id number] Unknown [place] AUTH REQUIR ED SEE NOTE [id number] Unknown [id number] [id number] Unknown [id number] 2.16.840.1.800095.3.579.2.462 Unknown [id number] 2.16.840.1.880020.3.579.2.462 Unknown [id number] 2.16.840.1.007777.3.579.2.462 Unknown [id number] 2.16.840.1.417952.3.579.2.462 Unknown [id number] 2.16.840.1.282075.3.579.2.462 Unknown [id number] 2.16.840.1.638731.3.579.2.462 Unknown [id number] 2.16.840.1.037143.3.579.2.462 Unknown [id number] 2.16.840.1.257837.3.579.2.462 Unknown [id number] 2.16.840.1.687593.3.579.2.462 Unknown [id number] 2.16.840.1.401142.3.579.2.462 Unknown [id number] 2.16.840.1.747625.3.579.2.462 Unknown [id number] 2.16.840.1.931075.3.579.2.462 Unknown [id number] 2.16.840.1.969670.3.579.2.462 Unknown [id number] 2.16.840.1.678727.3.579.2.462 Unknown [id number] 2.16.840.1.516407.3.579.2.462 Unknown [id number] 2.16.840.1.429094.3.579.2.462 Unknown [id number] 2.16.840.1.305185.3.579.2.462 Unknown [id number] 2.16.840.1.749781.3.579.2.462 Unknown [id number] 2.16.840.1.211300.3.579.2.462 Unknown [id number] 2.16.840.1.710010.3.579.2.462 Unknown [id number] 2.16.840.1.780525.3.579.2.462 Unknown [id number] 2.16.840.1.937592.3.579.2.462 Unknown [id number] 2.16.840.1.005050.3.579.2.462 Social History Date Type Detail Facility Start: 12-26-2022 Tobacco smoking stat [facility] Unknown if ever smoked [facility] Start: 1945 Sex Assigned At Male W [facility] Start: 07-03-2025 End: 07-04-2025 Tobacco smoking status NHIS Never smoked tobacco (finding) [facility] Goals Date Patient Goal Desired Activity /State Functional Status Date Assessment Result Facility 07-06-2025 Functional status Ambulates [facility] Work Phone: Mental Status Date Assessment Result Facility 07-06-2025 Cognitive function Awake;Alert;A ppropriate;Foll ows Commands [facility] Work Phone: 07-06-2025 Cognitive function Appropriate;Cooperativ e [facility] Work Phone: 07-05-2025 Cognitive function Arousable To Voice/Nam e [facility] Work Phone: Clinical Notes 12-26-2022 to 07-17-2025 Note Date & Type Note Facility 07-17-2025 Note [facility] Medical Records Department [address] [place] [address] Discharge Summary 07/17/25 1150 MR#: [id number] Acct: [id number] Name: KANDI GOMEZ Rep #: [id number] : 1945 80 From: Lois Oconnor PCP: Dr. Billy Braga DO Status:ADM IN Location: NC736-4 Providers Date of Admission: 07/06/25 Date of Discharge: 07/17/25 Primary Care Physician: Dr. [facility] Br[facility] [place] Consultations 07/07/25 09:26 Consult: Plastic Surgery Routine [...] Chronic anticoagulation: Status: Chronic Code(s): Z79.01 - 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 Plan: Will continue [...] Status: Chronic Code(s) (more content not included)... [facility] 07-07-2025 Note [facility] Medical Records Department [address] [place] [address] History Physical Exam 07/07/25 0810 MR#: [id number] Acct: [id number] Name: KANDI GOMEZ Rep #: [id number] : 1945 80 From: Lois Oconnor DO PCP: Dr. Billy Braga DO Status:ADM IN Location: [place] [address]-1 HPI - General General Date of Admission: [...] anemia who presented to the ED at [facility] on 07/03/25 after he tripped and [...] to the acute inpt rehab unit at [facility] on 07/06/25 for 3 hours of [...] been done his bili is always elevated. [facility] Medical History (Updated 07/07/25 @ 11:[address] Lois Oconnor, ) Chronic anticoagulation History of skin cancer History [...] abnormal hearing, dysphagi (more content not included)... [facility] 07-06-2025 Consult note [facility] 07-06-2025 Discharge summary Note Date/Time July 06, 2025 11:34am [facility] Medical Records Department [address] [place] [address] Discharge Summary 07/06/25 1132 MR#: [id number] Acct: [id number] Name: KANDI GOMEZ Rep #:[id number] : 1945 80 From: Jerrell Esquivel DO PCP: Dr. Billy Braga DO Status:ADM LILY Location: [place]3 AF882-5 Providers Date of Admission: 07/04/25 Primary Care Physician: Dr. Billy Braga, DO Consultations 07/04/25 05:31 Consult: Orthopedics Routine [...] 78.8 H, Lymph % (Auto) 7.3 L, Hanson % (Auto) 10.5 H, Eos % (Auto) [...] Rehab Unit/Facility Charges/Coding Visit Charges Inpatient E&M: 44685 Disch Hosp 07/06/25 1134 <Electronically signed by Jerrell Esquivel DO> Cosigner Signature (if applicable): CC: Dr. Jerrell Esquivel DO; Dr. Billy Braga DO~ Signed [facility] Work Phone: 1(508) 956-719109-08-2025 Progress note Author Jerrell Esquivel [facility] Note Date/Time July 06, 2025 11:32am [facility] Medical Records Department [address] [place] [address] Progress Note - Hospitalist 07/06/25909 MR#: [id number] Acct: [id number] Name: KANDI GOMEZ Rep #:[id number] : 1945 80 From: Jerrell Esquivel DO PCP: Dr. Billy Braga DO Status:ADM LILY Location: [place] LH531-3 Reason for Visit Chief Complaint: Fall, LUE [...] 78.8 H, Lymph % (Auto) 7.3 L, Hanson % (Auto) 10.5 H, Eos % (Auto) [...] Cosigner Signature (if applicable): CC: ~ Signed [facility] Work Phone: 1(983) 168-406609-08-2025 Discharge summary [facility] Medical Records Department [address] [place] [address] Discharge Summary 07/06/25 1132 MR#: [id number] Acct: [id number] Name: KANDI GOMEZ Rep #:[id number] : 1945 80 From: Jerrell Esquivel DO PCP: Dr. Billy Braga DO Status:ADM LILY Location: [place] [address] Providers Date of Admission: 07/04/25 Primary Care [...] 78.8 H, Lymph % (Auto) 7.3 L, Hanson % (Auto) 10.5 H, Eos % (Auto) [...] Rehab Unit/Facility Charges/Coding Visit Charges Inpatient E&M: 14872 Disch Hosp 07/06/25 1134 Cosigner Signature (if applicable): CC: Dr. Jerrell Esquivel DO; Dr. Billy Braga DO~ Signed [facility]09-08-2025 [facility] Medical Records Department [address] [place] [address] Discharge Summary 07/06/25 1132 MR#: [id number] Acct: [id number] Name: KANDI GOMEZ Rep #: [id number] : 1945 80 From: Jerrell Esquivel DO PCP: Dr. Billy Braga DO Status:ADM LILY Location: [place] [address] Providers Date of Admission: 07/04/25 Primary Care Physician: Dr. Billy Braga, DO Consultations 07/04/25 05:31 Consult: Orthopedics Routine [...] 78.8 H, Lymph % (Auto) 7.3 L, Hanson % (Auto) 10.5 H, Eos % (Auto) [...] O2, CPAP, BIPAP Needs (more content not included)...[facility]09-08-2025 Progress note [facility] Medical Records Department [address] [place] [address] Progress Note - Hospitalist 07/06/25 0910 MR#: [id number] Acct: [id number] Name: KANDI GOMEZ Rep #:[id number] : 1945 80 From: Jerrell Esquivel DO PCP: Dr. Billy Braga, DO Status:ADM LILY Location: [place] [address] Reason for Visit Chief Complaint: Fall, LUE [...] 78.8 H, Lymph % (Auto) 7.3 L, Hanson % (Auto) 10.5 H, Eos % (Auto) [...] Cosigner Signature (if applicable): CC: ~ Signed [facility]09-07-2025 Progress note Author Tiger Figueroa [facility] Note Date/Time July 05, 2025 7:48am [facility] Medical Records Department [address] [place] [address] Progress Note - Hospitalist 07/05/25 0729 MR#: [id number] Acct: [id number] Name: KANDI GOMEZ Rep #:[id number] : 1945 80 From: Tigre Figueroa MD PCP: Dr. Billy Braga, DO Status:ADM LILY Location: [place] [address]-1 Reason for Visit Chief Complaint: Fall, LUE [...] documentation, 35Minutes Charges/Coding Visit Charges Inpatient E&M: 82088 Subs Hosp L2 07/05/25 0748 <Electronically signed by Tigre Figueroa MD> Cosigner Signature (if applicable): CC: ~ Signed [facility] Work Phone: 1(794) 795-326809-07-2025 Progress note [facility] Medical Records Department [address] [place] [address] Progress Note - Hospitalist 07/05/2529 MR#: [id number] Acct: [id number] Name: KANDI GOMEZ Rep #:[id number] : 1945 80 From: Tigre Figueroa MD PCP: Dr. Billy Braga, DO Status:ADM LILY Location: [place]3 YX044-6 Reason for Visit Chief Complaint: Fall, LUE [...] documentation, 35Minutes Charges/Coding Visit Charges Inpatient E&M: 84744 Subs Hosp L2 07/05/25 0748 Cosigner Signature (if applicable): CC: ~ Signed [facility]09-06-2025 Consult note Author Umer Rivera [facility] Note Date/Time July 04, 2025 9:32am [facility] Medical Records Department [address] [place] [address] Consultation - Orthopedics 07/04/25 0930 MR#: [id number] Acct: [id number] Name: KANDI GOMEZ Rep #:[id number] : 1945 80 From: Umer Rivera MD PCP: Dr. Billy Braga, DO Status:ADM LILY Location: [place] [address] HPI Consult Data Date of Consult: 07/04/25 HPI Narrative HPI Narrative: KANDI GOMEZ, is a 80 M who presents with L proximal humerus fracture after multiple falls. [facility] Medical History (Updated 07/04/25 @ 08:50 by [...] mg tablet 25 mg PO BID BLOOD [place] ESS[facility] 02/21/18 02/21/18 History 25 MG cholecalciferol [...] 79.6 H, Lymph % (Auto) 6.9 L, Hanson % (Auto) 9.9, Eos % (Auto) 2.2, [...] mild brain involutional changes. stable Reading Location: [place] [address] 07/04/25 01:53 IMPRESSION: No newly developed vertebral fractures, structural collapse or dislocation. Stable study findings as detailed. Reading Location: [place] [address] Humerus X-Ray 07/04/25 02:30 IMPRESSION: Acute comminuted displaced fractures of the humeral surgical neck. Overlying soft tissue edema and swelling. Reading Location: [place] [address] Shoulder X-Ray 07/04/25 02:30 IMPRESSION: Acute comminuted displaced fractures of the humeral surgical neck. Overlying soft tissue edema and swelling. Reading Location: [place] [address] Assessment & Plan Assessment/Plan (1) Left humeral [...] shoulder arthroplasty). Sling for comfort for now. 07/04/25931 <Electronically signed by Umer Rivera MD> Cosigner Signature (if applicable): CC: Dr. Billy Braga, DO~ Signed [facility] Work Phone: 1(350) 161-640309-06-2025 Progress note Author Tigre Figueroa [facility] Note Date/Time July 04, 2025 8:50am [facility] Medical Records Department [address] [place] [address] Progress Note - Hospitalist 07/04/25 0718 MR#: [id number] Acct: [id number] Name: KANDI GOMEZ Rep #:[id number] : 1945 80 From: Tigre Figueroa MD PCP: Dr. Billy Braga, Status:ADM LILY Location: [place] [address] Reason for Visit Chief Complaint: Fall, LUE [...] 79.6 H, Lymph % (Auto) 6.9 L, Hanson % (Auto) 9.9, Eos % (Auto) 2.2, [...] mild brain involutional changes. stable Reading Location: [place] [address] 07/04/25 01:53 IMPRESSION: No newly developed vertebral fractures, structural collapse or dislocation. Stable study findings as detailed. Reading Location: [place] [address] Humerus X-Ray 07/04/25 02:30 IMPRESSION: Acute comminuted displaced fractures of the humeral surgical neck. Overlying soft tissue edema and swelling. Reading Location: [place] [address] Shoulder X-Ray 07/04/25 02:30 IMPRESSION: Acute comminuted displaced fractures of the humeral surgical neck. Overlying soft tissue edema and swelling. Reading Location: [place] [address] Physical Exam Narrative GENERAL: cooperative HEENT: Atraumatic; [...] documentation, 40Minutes Charges/Coding Visit Charges Inpatient E&M: 19683 Subs Hosp L2 07/04/25 0850 <Electronically signed by Tigre Figueroa MD> Cosigner Signature (if applicable): CC: ~ Signed [facility] Work Phone: 1(173) 386-381909-06-2025 Consult note [facility] Medical Records Department [address] [place] [address] Consultation - Orthopedics 07/04/25 0930 MR#: [id number] Acct: [id number] Name: KANDI GOMEZ Rep #:[id number] : 1945 80 From: Umer Rivera MD PCP: Dr. Billy Braga, DO Status:ADM LILY Location: [place] [address] HPI Consult Data Date of Consult: 07/04/25 HPI Narrative HPI Narrative: KANDI GOMEZ, is a 80 M who presents with L proximal humerus fracture after multiple falls. [facility] Medical History (Updated 07/04/25 @ 08:50 by [...] mg tablet 25 mg PO BID BLOOD [place] ESSURE 02/21/18 02/21/18 History 25 MG cholecalciferol [...] 79.6 H, Lymph % (Auto) 6.9 L, Hanson % (Auto) 9.9, Eos % (Auto) 2.2, [...] mild brain involutional changes. stable [facility] CT 07/04/25 01:53 IMPRESSION: No newly developed vertebral fractures, structural collapse or dislocation. Stable study findings as detailed. [facility] 07/04/25 02:30 IMPRESSION: Acute comminuted displaced fractures of the humeral surgical neck. Overlying soft tissue edema and swelling. Reading Location[facility] Shoulder X-Ray 07/04/25 02:30 IMPRESSION: Acute comminuted displaced fractures of the humeral surgical neck. Overlying soft tissue edema and swelling. Reading Location[facility] Assessment & Plan Assessment/Plan (1) Left humeral [...] Signature (if applicable): CC: Dr. Billy Braga DO~ Signed [facility]09-06-2025 Progress note [facility] Medical Records Department [address] [place] [address] Progress Note - Hospitalist 07/04/25 0718 MR#: [id number] Acct: [id number] Name: KANDI GOMEZ Rep #:[id number] : 1945 80 From: Tigre Figueroa MD PCP: Dr. Billy Braga DO Status:ADM LILY Location: [place] DM590-5 Reason for Visit Chief Complaint: Fall, LUE [...] H 125/67 H 97 Nasal Cannula 2 09/06/25 05:35 07/04/25 05:35 07/04/25 05:35 07/04/25 05:35 [...] 79.6 H, Lymph % (Auto) 6.9 L, Hanson % (Auto) 9.9, Eos % (Auto) 2.2, [...] mild brain involutional changes. stable Reading Location[facility] Cervical Spine CT 07/04/25 01:53 IMPRESSION: No newly developed vertebral fractures, structural collapse or dislocation. Stable study findings as detailed. Reading Location[facility] Humerus X-Ray 07/04/25 02:30 IMPRESSION: Acute comminuted displaced fractures of the humeral surgical neck. Overlying soft tissue edema and swelling. Reading Location[facility] Shoulder X-Ray 07/04/25 02:30 IMPRESSION: Acute comminuted displaced fractures of the humeral surgical neck. Overlying soft tissue edema and swelling. [facility] Physical Exam Narrative GENERAL: cooperative HEENT: Atraumatic; [...] documentation, 40Minutes Charges/Coding Visit Charges Inpatient E&M: 17133 Subs Hosp L2 07/04/25 0850 Cosigner Signature (if applicable): CC: ~ Signed [facility]09-06-2025 History and physical note Author Amarilis Tillman [facility] Note Date/Time July 04, 2025 4:33am [facility] Medical Records Department [address] [place] [address] H&P Exam - Hospitalist 07/04/25 0413 MR#: [id number] Acct: [id number] Name: KANDI GOMEZ Rep #:[id number] : 1945 80 From: Amarilis Tillman MD [...] discharged to home now re-presenting to the [facility] ED on 07/04/2025 with another mechanical [...] no acute surgical plans per ED report. [facility] Medical History (Updated 07/04/25 @ 04:28 by [...] mg tablet 25 mg PO BID BLOOD [place] ESSURE 02/21/18 02/21/18 History 25 MG cholecalciferol [...] 79.6 H, Lymph % (Auto) 6.9 L, Hanson % (Auto) 9.9, Eos % (Auto) 2.2, [...] mild brain involutional changes. stable Reading Location: [place] [address] 07/04/25 01:53 IMPRESSION: No newly developed vertebral fractures, structural collapse or dislocation. Stable study findings as detailed. Reading Location: [place] [address] Humerus X-Ray 07/04/25 02:30 IMPRESSION: Acute comminuted displaced fractures of the humeral surgical neck. Overlying soft tissue edema and swelling. Reading Location: [place] [address] Shoulder X-Ray 07/04/25 02:30 IMPRESSION: Acute comminuted displaced fractures of the humeral surgical neck. Overlying soft tissue edema and swelling. Reading [facility] Assessment & Plan Assessment/Plan (1) Left humeral [...] discharged to home now re-presenting to the [facility] ED on 07/04/2025 with another mechanical [...] time as CAB[place] x 1 [place] the [place], no recent echocardiogram noted in [employer] system. #5. CAD: Status post CABG x [...] Code status.. Charges/Coding Visit Charges Inpatient E&M: 15362 Init Hosp L3 07/04/25 0433 <Electronically signed by Amarilis Tillman MD> Cosigner Signature (if applicable): CC: Dr. Amarilis Tillman MD; Dr. Billy Braga, DO~ Signed [facility] Work Phone: 1(129) 463-272509-06-2025 Evaluation note* Diagnosis Onset Date Resolution Status Admit Date Left humeral fracture acute Sep ber 2024 4:14am [facility] Work Phone: 1(409) 742-329909-06-2025 Discharge summary Author Randy Gibson [facility] Note Date/Time July 04, 2025 4:12am [facility] Medical Records Department [address] [place] [address] Emergency Department Summary 07/04/25 MR#: [id number] Acct: [id number] Name: KANDI GOMEZ Rep #:[id number] : 1945 80 From: Randy Marroquin PCP: Dr. Billy Braga DO Status:REG ER Location: ED HPI History of Present Illness Chief Complaint: Fall PFSH PFS Medical History Tonsil and adenoid disease, chronic Hernia Coronary atherosclerosis due to severely calcified coronary lesion Home Medications ?Medication ?Instructions ?Recorded ?Last Taken ?Type metformin 500 mg tablet 500 mg PO BIDCM DIABETES 02/21/18 History 500 MG metoprolol tartrate 25 mg tablet 25 mg PO BID BLOOD [place] ESSURE 02/21/18 02/21/18 History 25 MG cholecalciferol [...] Method Room Air Room Air Room Air [facility] Narrative Medical decision making narrative: HISTORY OF [...] Response: 6 Secondary Survey Constitutional: Please see [facility] Head: Atraumatic, Midface stable, NO jaw malocclusion, [...] History of chronic anticoagulation Dispo: Admit to [facility] This note was generated with [employer] dictation software. It may contain incorrectwords, spelling, [...] 79.6 H Lymph % (Auto) 6.9 L Hanson % (Auto) 9.9 Eos % (Auto) 2.2 [...] mild brain involutional changes. stable Reading [facility] Cervical Spine CT 07/04/25 01:53 IMPRESSION: No newly developed vertebral fractures, structural collapse or dislocation. Stable study findings as detailed. Reading Location: [place] [address] Discharge Plan Triage Chief Complaint: Fall ED [...] Primary Care Provider: Billy Braga Referrals: Billy Braga, [Primary Care Provider] - Print Language: Mongolian What to do if you have Problems For any increased pain, shortness of breath, bleeding, nausea or vomiting, chestpain, or any unexpected problems, contact your Primary Care Provider. Call [facility] ([phone]) or report to the closest Emergency Room. Call 911 if necessary. 07/04/25411 <Electronically signed by Randy Gibson DO> Cosigner Signature (if applicable): CC: Dr. Billy Braga, ~ Signed [facility] Work Phone: 1(522) 596-998509-06-2025 History and physical note [facility] Medical Records Department [address] [place] [address] H&P Exam - Hospitalist 07/04/25412 MR#: [id number] Acct: [id number] Name: KANDI GOMEZ Rep #:[id number] : 1945 80 From: Amarilis Tillman MD PCP: Dr. Billy Braga, Status:REG ER Location: ED HPI - General [...] discharged to home now re-presenting to the [facility] ED on 07/04/2025 with another mechanical [...] no acute surgical plans per ED report. [facility] Medical History (Updated 07/04/25 @ 04:28 by [...] mg tablet 25 mg PO BID BLOOD [place] ESSURE 02/21/18 02/21/18 History 25 MG cholecalciferol [...] 79.6 H, Lymph % (Auto) 6.9 L, Hanson % (Auto) 9.9, Eos % (Auto) 2.2, [...] mild brain involutional changes. stable Reading Location: [place] [address] 07/04/25 01:53 IMPRESSION: No newly developed vertebral fractures, structural collapse or dislocation. Stable study findings as detailed. Reading Location: [place] [address] Humerus X-Ray 07/04/25 02:30 IMPRESSION: Acute comminuted displaced fractures of the humeral surgical neck. Overlying soft tissue edema and swelling. Reading Location: [place] [address] Shoulder X-Ray 07/04/25 02:30 IMPRESSION: Acute comminuted displaced fractures of the humeral surgical neck. Overlying soft tissue edema and swelling. Reading Location: [place] [address] Assessment & Plan Assessment/Plan (1) Left humeral [...] discharged to home now re-presenting to the [facility] ED on 07/04/2025 with another mechanical [...] [facility], [facility]ogram noted in [employer] system. #5. CAD: Status post CABG x [...] Code status.. Charges/Coding Visit Charges Inpatient E&M: 38768 Init Hosp L3 07/04/25 0433 Cosigner Signature (if applicable): CC: Dr. Amarilis Tillman MD; Dr. Billy Braga DO~ Signed [facility]09-06-2025 Discharge summary [facility] Medical Records Department [address] [place] [address] Emergency Department Summary 07/04/25 MR#: [id number] Acct: [id number] Name: KANDI GOMEZ Rep #:[id number] : 1945 80 From: Randy Marroquin PCP: Dr. Billy Braga DO Status:REG ER Location: ED HPI History of Present Illness Chief Complaint: Fall [facility] Medical History Tonsil and adenoid disease, chronic Hernia Coronary atherosclerosis due to severely calcified coronary lesion Home Medications ?Medication ?Instructions ?Recorded ?Last Taken ?Type metformin 500 mg tablet 500 mg PO BIDCM DIABETES 02/21/18 History 500 MG metoprolol tartrate 25 mg tablet 25 mg PO BID BLOOD [place] ESSURE 02/21/18 02/21/18 History 25 MG cholecalciferol [...] Method Room Air Room Air Room Air [facility] Narrative Medical decision making narrative: HISTORY OF PRESENT ILLNESS: Chief complaint: Fall, left shoulder pain 80-year-old male history of CAD, aortic valve replacement on [facility] presents with fall. Notes he tripped going [...] History of chronic anticoagulation Dispo: Admit to [facility] This note was generated with [employer] dictation software. It may contain incorrectwords, spelling, [...] 79.6 H Lymph % (Auto) 6.9 L Hanson % (Auto) 9.9 Eos % (Auto) 2.2 [...] mild brain involutional changes. stable [facility] Cervical Spine CT 07/04/25 01:53 IMPRESSION: No newly developed vertebral fractures, structural collapse or dislocation. Stable study findings as detailed. Reading [facility] Discharge Plan Triage Chief Complaint: Fall ED [...] DO [Primary Care Provider] - Print Language: Mongolian What to do if you have Problems For any increased pain, shortness of breath, bleeding, nausea or vomiting, chestpain, or any unexpected problems, contact your Primary Care Provider. Call [facility] ([phone]) or report tothe closest Emergency Room. Call 911 if necessary. 07/04/25 0412 Cosigner Signature (if applicable): CC: Dr. Billy Braga DO ~ Signed [facility]09-06-2025 Radiology Diagnostic study note [facility] Imaging Services [address], [place] [address] Humerus min 2 Views MR#: [id number] Acct: [id number] Name: KANDI GOMEZ Rep #: [id number] : 1945 M 80 From: Nadir Blevins MD PCP: Dr. Billy Braga DO Status: REG ER Study:Humerus min 2 Views Date of Exam: 07/04/25 Exam# [id number] Ordering Dr: Damion Gibson DO PROCEDURE: HUMERUS [...] soft tissue edema and swelling. Reading Location[facility] CC: Dr. Billy Braga DO; Dr. Randy Gibson DO ~ Envelope Adjuster: Signed [facility]09-06-2025 Radiology Diagnostic study note [facility] Imaging Services [address] [place], [place] [id number] Shoulder min 2 Views MR#: [id number] Acct: [id number] Name: KANDI GOMEZ Rep #: [id number] : 1945 M 80 From: Nadir Blevins MD PCP: Dr. Billy Braga DO Status: REG ER Study:Shoulder min 2 Views Date of Exam: 07/04/25 Exam# [id number] Ordering Dr: Damion Gibson DO PROCEDURE: SHOULDER [...] soft tissue edema and swelling. Reading Location: [facility] CC: Dr. Billy Braga DO; Dr. Randy Gibson DO ~ Envelope Adjuster: Signed [facility]09-06-2025 Radiology Diagnostic study note [facility] Imaging Services [address] [place] [address] Spine Cervical without Contras MR#: [id number] Acct: [id number] Name: KANDI GOMEZ Rep #: [id number] : 1945 M 80 From: Nadir Blevins MD PCP: Dr. Billy Braga DO Status: REG ER Study:Spine Cervical without Contras Date of Exam: 07/04/25 Exam# [id number] Ordering Dr: Damion Gibson DO PROCEDURE: SPINE [...] Stable study findings as detailed. Reading Location[facility] CC: Dr. Billy Braga DO; Dr. Randy Gibson DO ~ Envelope Adjuster: Signed [facility]09-06-2025 Radiology Diagnostic study note [facility] Imaging Services [address] [place] [address] Brain/Head without Contrast MR#: [id number] Acct: [id number] Name: KANDI GOMEZ Rep #: [id number] : 1945 M 80 From: Nadir Blevins MD PCP: Dr. Billy Braga DO Status: REG ER Study:Brain/Head without Contrast Date of Exa m: 07/04/25 Exam# [id number] Ordering Dr: Damion Gibson DO PROCEDURE: BRAIN/HEAD [...] mild brain involutional changes. stable Reading Location: [facility] CC: Dr. Billy Braga DO; Dr. Randy Gibson DO ~ Envelope Adjuster: Signed [facility]09-05-2025 Discharge summary [facility] Medical Records Department [address] [place] [address] Emergency Department Summary 07/03/25 MR#: [id number] Acct: [id number] Name: KANDI GOMEZ Rep #:[id number] : 1945 80 From: Mj Ngo DO [...] of right hand pain and a cut. [facility] Medical History Tonsil and adenoid disease, chronic Hernia Coronary atherosclerosis due to severely calcified coronary lesion Home Medications ?Medication ?Instructions ?Recorded ?Last Taken ?Type metformin 500 mg tablet 500 mg PO BIDCM DIABETES 02/21/18 History 500 MG metoprolol tartrate 25 mg tablet 25 mg PO BID BLOOD [place] ESSURE 02/21/18 02/21/18 History 25 MG cholecalciferol [...] following commands knew that he was at [facility] year is 2024 Skin: Warm, dry, [...] IMPRESSION: No acute intracranial process. 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 Possible fracture of the anterior osteophyte at C4. No other acute compression deformity, fracture, or subluxation. Moderate multilevel degenerative changes of the cervical spine with moderate central canal stenosismost prominent at C6-C7. Reading Location: [facility] Forearm X-Ray 07/03/25 07:11 IMPRESSION: No acute fracture or dislocations. Scattered mild degenerative changes. No acute soft tissue abnormalities. No radiographic foreign body. Reading Location: [facility] Hand X-Ray 07/03/25 07:11 IMPRESSION: No acute fracture or dislocations. Scattered mild degenerative changes. Mild soft tissue edema/contusion. No radiographic foreign body. Reading Location: [facility] Wrist X-Ray 07/03/25 07:11 IMPRESSION: No acute fracture or dislocations. Scattered mild degenerative changes. No acute soft tissue abnormalities. No radiographic foreign body. Reading Location: [facility] Discharge Plan Triage Chief Complaint: [...] symptoms or any other concerns Print Language: Mongolian Disposition Disposition: Home, Self Care What to do if you have Problems For any increased pain, shortness of breath, bleeding, nausea or vomiting, chestpain, or any unexpected problems, contact your Primary Care Provider. Call [facility] ([phone]) or report tothe closest Emergency Room. Call 911 if necessary. 07/03/25 0802 Cosigner Signature (if applicable): CC: Dr. Billy Braga, ~ Signed [facility]09-05-2025 Radiology Diagnostic study note [facility] Imaging Services [address] [place] [address] Hand Min 3 Views MR#: [id number] Acct: [id number] Name: KANDI GOMEZ Rep #: [id number] : 1945 M 80 From: Barbara Palomino MD PCP: Dr. Billy Braga DO Status: REG ER Study:Hand Min 3 Views Date of Exam: 03/22 Exam# [id number] Ordering Dr: Damion Ngo DO PROCEDURE: HAND MIN 3 VIEWS 07/03/2025 REASON FOR EXAM: FALL, HAND LAC BASE OF 5TH TECHNIQUE: Procedure Code: GINNA Modality: DX Procedure: HAND MIN 3 VIEWS Laterality: COMPARISON: None RAD/Hand Min 3 Views IMPRESSION: No acute fracture or dislocations. Scattered mild degenerative changes. Mild soft tissue edema/contusion. No radiographic foreign body. Reading Location: [id number] CC: Dr. Billy Braga DO; Dr. Mj Ngo DO ~ Envelope Adjuster: Signed [facility]09-05-2025 Radiology Diagnostic study note [facility] Imaging Services [address] [place] [address] Wrist min 3 Views MR#: [id number] Acct: [id number] Name: KANDI GOMEZ Rep #: [id number] : 1945 M 80 From: Barbara Palomino MD PCP: Dr. Billy Braga DO Status: REG ER Study:Wrist min 3 Views Date of Exam: Exam# [id number] Ordering Dr: Damion Ngo DO PROCEDURE: WRIST MIN 3 VIEWS 07/03/2025 REASON FOR EXAM: FALL TECHNIQUE: Procedure Code: RADWR Modality: DX Procedure: WRIST MIN 3 VIEWS COMPARISON: None RAD/Wrist min 3 Views IMPRESSION: No acute fracture or dislocations. Scattered mild degenerative changes. No acute soft tissue abnormalities. No radiographic foreign body. Reading Location: [facility] CC: Dr. Billy Braga DO; Dr. Mj Ngo DO ~ Envelope Adjuster: Signed [facility]09-05-2025 Radiology Diagnostic study note [facility] Imaging Services [address] [place] [address] Forearm 2 Views MR#: [id number] Acct: [id number] Name: KANDI GOMEZ Rep #: [id number] : 1945 M 80 From: Barbara Palomino MD PCP: Dr. Billy Braga DO Status: REG ER Study:Forearm 2 Views Date of Exam: 03/22 Exam# [id number] Ordering Dr: Damion Ngo DO PROCEDURE: FOREARM 2 VIEWS 07/03/2025 REASON FOR EXAM: FALL TECHNIQUE: Procedure Code: RADFA Modality: DX Procedure: FOREARM 2 VIEWS COMPARISON: None RAD/Forearm 2 Views IMPRESSION: No acute fracture or dislocations. Scattered mild degenerative changes. No acute soft tissue abnormalities. No radiographic foreign body. Reading Location: [id number] CC: Dr. Billy Braga DO; Dr. Mj Ngo DO ~ Envelope Adjuster: Signed [facility]09-05-2025 Radiology Diagnostic study note [facility] Imaging Services [address] [address] Spine Cervical without Contras MR#: [id number] Acct: [id number] Name: KANDI GOMEZ Rep #: [id number] : 1945 M 80 From: Barbara Palomino MD PCP: Dr. Billy Braga DO Status: REG ER Study:Spine Cervical without Contras Date of Exam: 07/03/25 Exam# [id number] Ordering Dr: Damion Ngo DO PROCEDURE: SPINE [...] canal stenosismost prominent at C6-C7. Reading Location: [facility] CC: Dr. Billy Braga DO; Dr. Mj Ngo DO ~ Envelope Adjuster: Signed [facility]09-05-2025 Radiology Diagnostic study note [facility] Imaging Services [address] [place] [address] Brain/Head without Contrast MR#: [id number] Acct: [id number] Name: KANDI GOMEZ Rep #: [id number] : 1945 M 80 From: Barbara Palomino MD PCP: Dr. Billy Braga DO Status: REG ER Study:Brain/Head without Contrast Date of Exa m: 07/03/25 Exam# [id number] Ordering Dr: Damion Ngo DO PROCEDURE: BRAIN/HEAD [...] IMPRESSION: No acute intracranial process. Reading Location: [facility] CC: Dr. Blily Braga DO; Dr. Mj Ngo DO ~ Envelope Adjuster: Signed [facility]02-28-[address] Alford [facility] December 26, 2022 5:23pm Note Date/Time December 26, 2022 3:41pm [facility] Medical Records Department [address] [place] [address] Emergency Department Summary 12/26/22 MR#: [id number] Acct: [id number] Name: KANDI GOMEZ Rep #:[id number] : 1945 77 From: Sean Alford MD [...] normal stools. He is denying chest pain. [facility] Medical History (Updated 12/26/22 @ 17:21 [...] (Updated 03/26/18 @ 10:44 by Mendoza Shaffer, SUPER[employer]OR [employer], BRIDGE/STRUCTURE INSPECTION TEAM LEADER, BS) Mother Cancer Father Heart failure Surgical [...] 75.5 H Lymph % (Auto) 12.5 L Hanson % (Auto) 9.2 Eos % (Auto) 1.6 [...] 16:18 EST Reading Location ID and State: [facility] / [place] Tel , Service support , EKG Initial EKG: Comments: Sinus rhythm with a rate of 69. Normal [place] and QTc intervals. No ischemic changes. Interpreted [...] This was [place] ago [place] the [place] he has not had an echocardiogram since [...] your Primary Care Provider. Call [facility] ([phone]) or report to the closest Emergency Room. Call 911 if necessary. 12/26/22 1723 <Electronically signed by Sean Alford MD> Cosigner Signature (if applicable): CC: Dr. Billy Braga, DO ~ Signed [facility] Work Phone: Consult note Author Romaine Bello [facility] Note Date/Time July 06, 2025 1:50pm [facility] Medical Records Department [address] [place] [address] Counseling Note - Pharmacy 07/06/25 1349 MR#: [id number] Acct: [id number] Name: KANDI GOMEZ Rep #:[id number] : 1945 80 From: Romaine Bello PCP: Dr. Billy Braga, DO Status:ADM LILY Y Location: [place] [address] Pharmacy [place] Med Reconciliation Pharmacy Service has performed discharge [...] tabs 07/04/25 07/06/25 1350 <Electronically signed by Romiane ashton> Date _ Romaine Kirkland Signature (if applicable): Date CC: ~ Signed [facility] Work Phone: Discharge summary Author Mj Ngo [facility] Note Date/Time July 03, 2025 8:02am [facility] Medical Records Department [address] [place] [address] Emergency Department Summary 07/03/25 MR#: [id number] Acct: [id number] Name: KANDI GOMEZ Rep #:[id number] : 1945 80 From: Mj Ngo DO [...] of right hand pain and a cut. [facility] Medical History Tonsil and adenoid disease, chronic Hernia Coronary atherosclerosis due to severely calcified coronary lesion Home Medications ?Medication ?Instructions ?Recorded ?Last Taken ?Type metformin 500 mg tablet 500 mg PO BIDCM DIABETES 02/21/18 History 500 MG metoprolol tartrate 25 mg tablet 25 mg PO BID BLOOD [place] ESSURE 02/21/18 02/21/18 History 25 MG cholecalciferol [...] following commands knew that he was at [facility] year is 2024 Skin: Warm, dry, [...] IMPRESSION: No acute intracranial process. 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 Possible fracture of the anterior osteophyte at C4. No other acute compression deformity, fracture, or subluxation. Moderate multilevel degenerative changes of the cervical spine with moderate central canal stenosis most prominent at C6-C7. Reading Location: [facility] Forearm X-Ray 07/03/25 07:11 IMPRESSION: No acute fracture or dislocations. Scattered mild degenerative changes. No acute soft tissue abnormalities. No radiographic foreign body. Reading Location: [facility] Hand X-Ray 07/03/25 07:11 IMPRESSION: No acute fracture or dislocations. Scattered mild degenerative changes. Mild soft tissue edema/contusion. No radiographic foreign body. Reading Location: [facility] Wrist X-Ray 07/03/25 07:11 IMPRESSION: No acute fracture or dislocations. Scattered mild degenerative changes. No acute soft tissue abnormalities. No radiographic foreign body. Reading Location: [facility] Discharge Plan Triage Chief Complaint: [...] symptoms or any other concerns Print Language: Mongolian Disposition Disposition: Home, Self Care What to do if you have Problems For any increased pain, shortness of breath, bleeding, nausea or vomiting, chestpain, or any unexpected problems, contact your Primary Care Provider. Call [facility] ([phone]) or report to the closest Emergency Room. Call 911 if necessary. 07/03/25 0802 <Electronically signed by Mj Ngo DO> Cosigner Signature (if applicable): CC: Dr. Billy Braga DO ~ Signed [facility] Work Phone: Discharge summary Author Randy Gibson [facility] Note Date/Time July 04, 2025 4:12am [facility] Medical Records Department [address] [facility] [place] [address] Emergency Department Summary 07/04/25 MR#: [id number] Acct: [id number] Name: KANDI GOMEZ Rep #:[id number] : 1945 80 From: Randy Marroquin PCP: Dr. Billy Braga DO Status:REG ER Location: ED HPI History of Present Illness Chief Complaint: Fall [facility] Medical History Tonsil and adenoid disease, chronic Hernia Coronary atherosclerosis due to severely calcified coronary lesion Home Medications ?Medication ?Instructions ?Recorded ?Last Taken ?Type metformin 500 mg tablet 500 mg PO BIDCM DIABETES 02/21/18 History 500 MG metoprolol tartrate 25 mg tablet 25 mg PO BID BLOOD [place] ESSURE 02/21/18 02/21/18 History 25 MG cholecalciferol [...] Method Room Air Room Air Room Air [facility] Narrative Medical decision making narrative: HISTORY OF [...] Medicine (Dr. Tillman), orthopedic surgery (Dr. Rivera) [facility] Narrative: The patient was initially hemodynamically stable, [...] History of chronic anticoagulation Dispo: Admit to [facility] This note was generated with [employer] dictation software. It may contain incorrectwords, spelling, [...] 79.6 H Lymph % (Auto) 6.9 L Hanson % (Auto) 9.9 Eos % (Auto) 2.2 [...] mild brain involutional changes. stable [facility] Cervical Spine CT 07/04/25 01:53 IMPRESSION: No newly developed vertebral fractures, structural collapse or dislocation. Stable study findings as detailed. Reading Location: [place] [address] Discharge Plan Triage Chief Complaint: Fall ED Provider: Radny Gibson Dx/Rx/DC Orders Prescriptions: No Action metformin [...] DO [Primary Care Provider] - Print Language: Mongolian What to do if you have Problems For any increased pain, shortness of breath, bleeding, nausea or vomiting, chestpain, or any unexpected problems, contact your Primary Care Provider. Call [facility] ([phone]) or report to the closest Emergency Room. Call 911 if necessary. 07/04/25411 <Electronically signed by Randy Gibson DO> Cosigner Signature (if applicable): CC: Dr. Billy Braga, DO ~ Signed [facility] Work Phone: Evaluation noteNo assessment information available [facility] Work Phone: Evaluation note* Diagnosis Onset Date Resolution Status Admit Date Left humeral fracture acute Sep 2024 4:14am [facility] Work Phone: History and physical note Author Amarilis Tillman [facility] Note Date/Time July 04, 2025 4:33am [facility] Medical Records Department [address] [place] [address] H&P Exam - Hospitalist 07/04/25412 MR#: [id number] Acct: [id number] Name: KANDI GOMEZ Rep #:[id number] : 1945 80 From: Amarilis Tillman MD PCP: Dr. Billy Braga, Status:REG ER Location: ED HPI - General [...] discharged to home now re-presenting to the [facility] ED on 07/04/2025 with another mechanical [...] no acute surgical plans per ED report. [facility] Medical History (Updated 07/04/25 @ 04:28 by [...] mg tablet 25 mg PO BID BLOOD [place] ESSURE 02/21/18 02/21/18 History 25 MG cholecalciferol [...] 79.6 H, Lymph % (Auto) 6.9 L, Hanson % (Auto) 9.9, Eos % (Auto) 2.2, [...] mild brain involutional changes. stable Reading Location: [place] [address] 07/04/25 01:53 IMPRESSION: No newly developed vertebral fractures, structural collapse or dislocation. Stable study findings as detailed. Reading Location: [place] [address] Humerus X-Ray 07/04/25 02:30 IMPRESSION: Acute comminuted displaced fractures of the humeral surgical neck. Overlying soft tissue edema and swelling. Reading Location: [place] [address] Shoulder X-Ray 07/04/25 02:30 IMPRESSION: Acute comminuted displaced fractures of the humeral surgical neck. Overlying soft tissue edema and swelling. Reading Location: [place] [address] Assessment & Plan Assessment/Plan (1) Left humeral [...] discharged to home now re-presenting to the [facility] ED on 07/04/2025 with another mechanical [...] time as CABG x 1 at the [place], no recent echocardiogram noted in [employer] system. #5. CAD: Status post CABG x [...] Code status.. Charges/Coding Visit Charges Inpatient E&M: 12480 Init Hosp L3 07/04/25 0430 <Electronically signed by Amarilis Tillman MD> Cosigner Signature (if applicable): CC: Dr. Amarilis Tillman MD; Dr. Billy Braga, DO~ Signed [facility] Work Phone: Hospital Discharge instructionsAdditional Instructions [...] Return with worsening symptoms or any other concernsWC[facility] Work Phone: Reason for referral (narrative)No reason for referral information availableWCleveland Clinic Hillcre[facility] Work Phone: Chief Complaint and Reason for Visit Chief Complaint SOB Chief Complaint Admit Date fallJuly 03, 2025 6:45am Chief Complaint Admit Date fallJuly 03, 2025 6:45am fall July 04, 2025 [...] Date/ Time Living Will No December 26, 3:35pm Power of Gasoline Truck Operator No December 26, 2022 3:35pm Advance Directive Response Recorded Date/ Time Do you have a Healthcare Power of Gasoline Truck Operator? Yes July 03, 2025 6:50am Advance Directive Response Recorded Date/ Time Do you have a Healthcare Power of Gasoline Truck Operator? Yes July 03, 2025 6:50am Do you have a Healthcare Power of Gasoline Truck Operator? Yes July 04, 2025 1:19am Advance Directive Response Recorded Date/ Time Do you have a Healthcare Power of Gasoline Truck Operator? Yes July 03, 2025 6:50am Do you have a Healthcare Power of Gasoline Truck Operator? Yes July 04, 2025 5:40am Summary Purpose [...] ized section and content) DATE CREATED AUTHOR 07/22/2025 [facility] FOR RECORDS PERTAINING TO PATIENTS WHO ARE [...] BE BASED ON THE PRIMARY CLINICAL RECORDS. [facility] [employer] [facility]. provides no warranty or guarantee of the accuracy or completeness of information in this document.
== END | disposition home or self-care (01) ==
LOC: CT 16:46
PROVIDERS: Referring Provider Orthopaedic Surgery Sports Medicine; Visit Provider Orthopaedic Surgery Sports Medicine
DX: S42.202A Unspecified fracture of upper end of left humerus, initial encounter for closed fracture (principal); X58.XXXA Exposure to other specified factors, initial encounter
CPT/HCPCS: 73200

== ENCOUNTER 2025-07-27 10:00 | Outpatient (RCR) | payer MEDICARE, SELFPAY ==
[2025-07-27 10:25] VITALS: BP 137/67; PULSE 47; RESP 18; TEMP 35.6
--- NOTE | 2025-07-27 11:21 | PCM.WC.HP ---
History of Present Illness Date of Service: 07/27/25 History of Wound: Patient sustained a laceration on 03 July 2025 to the right volar hand over the A1 jacoby region of the right ring finger. He was admitted to the rehab facility for other injuries. He had cellulitis surrounding the laceration repair that was diagnosed on 07 July 2025 (time of plastic surgery consultation). He was placed on oral antibiotics and the sutures were removed 4 days later. Patient has been doing well ever since and has not had any fevers chills or drainage. Reports today in the wound care center that he is doing well [facility] Medical History Fracture of humerus, proximal, left, closed Restless leg Hand laceration Chronic anticoagulation History of skin cancer History of cardioversion Primary osteoarthritis of right knee PAF (paroxysmal atrial fibrillation) Obesity Chronic anemia CAD (coronary artery disease) Hypothyroidism Diabetes mellitus type II, controlled HLD (hyperlipidemia) HTN (hypertension) Valvular heart disease Home Medications ?Medication ?Instructions ?Recorded ?Last Taken ?Type metformin 500 mg tablet 500 mg PO DAILY DIABETES 02/21/18 02/21/18 History 500 MG metoprolol tartrate 25 mg tablet 25 mg PO BID BLOOD PRESSURE 02/21/18 07/06/25 History cholecalciferol (vitamin D3) 50 2,000 unit PO DAILY supplement 03/26/18 Unknown History mcg (2,000 unit) capsule (Vitamin D3) apixaban 5 mg tablet (Eliquis) 5 mg PO BID prophylaxes 07/03/25 Unknown History aspirin 81 mg capsule 81 mg PO DAILY heart health 07/03/25 07/06/25 History atorvastatin 10 mg tablet (Lipitor) 10 mg PO QHS cholesterol 07/03/25 07/05/25 History levothyroxine 75 mcg tablet 75 mcg PO DAILY thyroid 07/03/25 07/06/25 History (Synthroid) lisinopril 10 mg tablet 5 mg PO DAILY blood pressure 07/03/25 07/06/25 History tamsulosin 0.4 mg capsule 0.4 mg PO DAILY retention 07/03/25 07/06/25 History acetaminophen 500 mg tablet 1,000 mg (2 x 500 mg) PO Q8 PRN 07/17/25 Unknown Rx fever/pain #1 TAB furosemide 40 mg tablet (Lasix) 20 mg (1/2 x 40 mg) PO DAILY PRN 07/17/25 Unknown Rx fluid #30 tabs oxycodone 5 mg tablet 5 mg PO Q4H PRN PRN pain 4-10 1 07/17/25 Unknown Rx week #35 tabs amlodipine 5 mg tablet 5 mg PO QDAY 07/23/25 Unknown History Allergy/AdvReac Type Severity Reaction Status Date / Time Penicillins Allergy Other Verified 07/23/25 11:18 Family History Mother Cancer Father Heart failure Surgical History History of bilateral cataract extraction History of tonsillectomy and adenoidectomy S/P AVR (aortic valve replacement) S/P CABG x 1 Social History household members: spouse housing: house Smoking Status: Former smoker how long ago did patient quit smokin years ago alcohol intake: never substance use type: does not use Vital Signs Vital Signs Vital Signs: 07/27/25 10:25 Temperature 96.0 F L Temperature Source Temporal Pulse Rate 47 L Respiratory Rate 18 Blood Pressure 137/67 H Blood Pressure Mean 90 Blood Pressure Source Monitor Blood Pressure Position Sitting Blood Pressure Location Right Arm Oxygen Delivery Method Room Air Physical Exam Narrative Right upper Extremity Inspection: Suture line clean dry and intact and healed Palpation: No fluid collections and no pain over the A1 jacoby No pain with passive excursion of the tendon, no drainage. No signs of flexor tenosynovitis Motor: Able to bend and extend all MP, PIP, and DIP joints. Sensory: Intact to light touch on the radial and ulnar borders. Vascular: Finger tips are warm and well perfused with <2 second capillary refill. Debridement Note Debridement Note Post-Debridement Measurements and Additional Note: Post-Debridement Measurements/Treatment JESSICA - Nurse 1 - General Ulcer Assessment Start: 07/27/25 10:25 Freq: Status: Active Protocol: TOM Activity Type Activity Date Activity User E-sign Co-sign Detail Recorded Client Recorded Date Recorded By Document 07/27/25 10:25 DS [id number] 07/27/25 10:30 DS 07/27/25 10:25 - Today's Visit Information Type of service Initial Visit Arrival Mode Ambulatory Accompanied by SIG OTHER Patient Identification Verified (Name & Yes ) Patient Requires Transmission-Based No Precautions Safety Precautions Fall Prevention Vital Signs Temperature (97.8 F-99.1 F) 96.0 F L Temperature Source Temporal Pulse Rate (60-100) 47 L Pulse Location Monitor Respiratory Rate (12-18) 18 Respiratory rate source Observation Oxygen Delivery Method Room Air Blood Pressure (90/60-120/80) 137/67 H Blood Pressure Mean 90 Source Monitor Position Sitting Blood Pressure Location Right Arm Pain Scale: 0-10 Numeric Is Patient Pain Free? Yes Communication Assessment Preferred language Korean Able to Read Yes Able to Write Yes Communication Tools None Right Hearing Abillity Hard of Hearing ,Use of Hearing Aid Left Hearing Abillity Hard of Hearing ,Use of Hearing Aid Visual Assistive Devices Glasses Functional Assessment Recent Decline in Ability to Perform Denies Any Declines Culture/Judaism/Supply Teacher Cultural/Judaism Needs that may affect No Treatment Plan Teaching: Wound Center *Welcome to the Wound Center -Person Taught Patient, Significant Other -Teaching Method Discussion -Response to teaching Verbalize Understanding WC - Nurse 1 - General Ulcer Measurement Start: 07/27/25 10:25 Freq: Status: Active Protocol: Activity Type Activity Date Activity User E-sign Co-sign Detail Recorded Client Recorded Date Recorded By Document 07/27/25 10:37 DS [id number] 07/27/25 10:46 DS 07/27/25 10:37 Wound Center Nurse 1 #1 RIGHT LOWER PINKY/PALM -Current Size (cm) - Length 0.1 -Current Size (cm) - Width 0.1 -Current Size (cm) - Depth 0.1 -Total Square Cm 0.01 -Date of Last Picture (Recall this 07/27/25 field) -Photo Taken No -Tunneling No -Undermining/Tunneling No -Circular Undermining No -Texture (Bouchra-wound Skin Appearance) Assessed -Moisture (Bouchra-wound Skin Appearance) Assessed -Color (Bouchra-wound Skin Appearance) Assessed -Temperature (Bouchra-wound Skin No Abnormality Appearance) (Pt Warm) -Tenderness on Palpation (Bouchra-wound No Skin Appearance) -Ulcer Cleansing Soap and Water -Foul Odor after Cleansing No -Anesthetic Used 5% Lidocaine Gel -Wound Comment(s) SCAB TO AREA WC - Nurse 2 - General Ulcer CM Notes Start: 07/27/25 10:25 Freq: Status: Active Protocol: Activity Type Activity Date Activity User E-sign Co-sign Detail Recorded Client Recorded Date Recorded By Document 07/27/25 11:04 JF [id number] 07/27/25 11:05 07/27/25 11:04 Wound Center Nurse 2 -Correct Patient Yes -Correct Side, Site, Position No -Correct Procedure No -Procedure Performed No -Post Debridement (cm) - Length 0 -Post Debridement (cm) - Width 0 -Post Debridement (cm) - Depth 0 -Total Square (Post) (cm) 0 -Area of Debridement (cm) - Length 0 -Area of Debridement (cm) - Width 0 -Total Square (Area) (cm) 0 -Wound/Ulcer Outcome Healed- Epithelialized Pain Scale: 0-10 Numeric Is Patient Pain Free? Yes - Nurse 3 - General Ulcer D/C NN Start: 07/27/25 10:25 Freq: Status: Active Protocol: Activity Type Activity Date Activity User E-sign Co-sign Detail Recorded Client Recorded Date Recorded By Document 07/27/25 11:05 [id number] 07/27/25 11:05 07/27/25 11:05 Wound Care Center Nurse 3 #1 RIGHT LOWER PINKY/PALM -Ulcer Cleansing Rinsed/ Irrigated with Saline -Foul Odor after Cleansing No -Primary Dressing Covered/Secured with Dry Gauze & Roll Gauze, Secured with Tape Pain Scale: 0-10 Numeric Is Patient Pain Free? Yes - Visit Discharge Discharge Condition Stable Ambulatory Status Ambulatory,Cane Transportation Private Auto Medication Reconcilliation completed & Yes provided to patient/care provider Clinical Summary of Care Provided Yes Charges/Coding Visit Charges Office Visits / Consults: 82883 OV L2 Est 10min Assessment/Plan Assessment/Plan (1) Hand laceration: CODE(S): S61.419A - Laceration without foreign body of unspecified hand, initial encounter QUALIFIERS: Encounter type: subsequent encounter Foreign body presence: without foreign body Laterality: right Qualified Code(s): S61.411D - Laceration without foreign body of right hand, subsequent encounter PLAN: Healed without signs of any residual infection Patient should follow-up as needed Patient and his happy with the plan
--- NOTE | 2025-07-28 10:14 | WC ---
PHOTO-RIGHT LOWER THUMB 07/27/25
== END 2025-07-28 15:51 | disposition home or self-care (01) ==
LOC: WC 10:00
PROVIDERS: Referring Provider Physician Assistant; Visit Provider Surgery Plastic and Reconstructive Surgery
DX: Z09 Encounter for follow-up examination after completed treatment for conditions other than malignant neoplasm (principal); Z87.891 Personal history of nicotine dependence
CPT/HCPCS: 99213; G0463